=== PATIENT | male | born 1955 | race African-American/Black ===

== ENCOUNTER 2018-10-22 15:09 | Inpatient (IN) | payer OTHER ==
[~2018-10-22] VITALS: Ht 172.7 cm; Wt 76.5 kg
[2018-10-22] MEDS ORDERED: HYDROCODONE/APAP (10/325) TAB PO ONE (18:00)
[2018-10-22] MEDS ORDERED: VANCOMYCIN 1 GM (PMX) 250 ML IVPB STA (19:29)
[2018-10-22] MEDS ORDERED: PIPER-TAZO 3.375 GM IV (PMX) 100 ML IVPB STA (19:29)
--- NOTE | 2018-10-22 19:29 | ERD ---
ER Documentation Chief Complaint Chief Complaint bilat wounds to the feet. sent from a wound clinic HPI 63-year-old male with a history of diabetes and chronic bilateral lower extremity wound sent from his wound clinic for worsening of his wounds. Patient complains of severe 10 out of 10 burning and aching pain in his feet. He is currently homeless and unable to take care of himself. He states that he has medications but he cannot see the names on the medication bottles to take him. He denies any fevers or chills. He is currently living [address] and states that he is very cold all the time. ROS All systems reviewed and are negative except as per history of present illness. Medications Home Meds Reported Medications [Unknown] No Conflict Check 04/28/13 PMhx/Soc History of Surgery: Yes (left hip sx) Anesthesia Reaction: No Hx Neurological Disorder: No Hx Respiratory Disorders: No Hx Cardiac Disorders: No Hx Psychiatric Problems: No Hx Miscellaneous Medical Probl: Yes (dm, BLE ATROPHY) Hx Alcohol Use: Yes (OCCASIONAL) Hx Substance Use: No Hx Tobacco Use: Yes Smoking Status: Current every day smoker FmHx Family History: No diabetes Physical Exam Vitals Vital Signs Date Temp Pulse Resp B/P (MAP) Pulse Ox O2 O2 Flow FiO2 Time Delivery Rate 10/22/18 99.0 110 18 130/90 100 15:14 (103) Physical Exam Const: No acute distress, chronically ill-appearing, nontoxic Head: Atraumatic Eyes: Normal Conjunctiva ENT: Normal External Ears, Nose and Mouth. Neck: Full range of motion. No meningismus. Resp: Clear to auscultation bilaterally Cardio: Regular rate and rhythm, no murmurs Abd: Soft, non tender, non distended. Normal bowel sounds Skin: No petechiae or rashes Back: No midline or flank tenderness Ext: Bilateral feet and ankles with multiple ulcerated lesions with granulation tissue, possibly infected Neur: Awake and alert Psych: Normal Mood and Affect Result Diagram: 10/22/18 1732 10/22/18 173 Results 24 hrs Laboratory Tests Test 10/22/18 17:32 White Blood Count 8.0 10^3/ul Red Blood Count 3.10 10^6/ul Hemoglobin 7.8 g/dl Hematocrit 25.6 % Mean Corpuscular Volume 82.6 fl Mean Corpuscular Hemoglobin 25.2 pg Mean Corpuscular Hemoglobin Concent 30.5 g/dl Red Cell Distribution Width 14.5 % Platelet Count 384 10^3/UL Mean Platelet Volume 9.5 fl Immature Granulocytes % 0.400 % Neutrophils % 75.8 % Lymphocytes % 15.8 % Monocytes % 6.6 % Eosinophils % 0.9 % Basophils % 0.5 % Nucleated Red Blood Cells % 0.0 /100WBC Immature Granulocytes # 0.030 10^3/ul Neutrophils # 6.1 10^3/ul Lymphocytes # 1.3 10^3/ul Monocytes # 0.5 10^3/ul Eosinophils # 0.1 10^3/ul Basophils # 0.0 10^3/ul Nucleated Red Blood Cells # 0.0 10^3/ul Sodium Level 139 mmol/L Potassium Level 4.1 mmol/L Chloride Level 106 mmol/L Carbon Dioxide Level 28 mmol/L Anion Gap 5 Blood Urea Nitrogen 17 mg/dl Creatinine 0.69 mg/dl Est Glomerular Filtrat Rate mL/min > 60 mL/min Glucose Level 246 mg/dl Calcium Level 8.8 mg/dl Total Bilirubin 0.1 mg/dl Direct Bilirubin 0.00 mg/dl Indirect Bilirubin 0.1 mg/dl Aspartate Amino Transf (AST/SGOT) 18 IU/L Alanine Aminotransferase (ALT/SGPT) 9 IU/L Alkaline Phosphatase 109 IU/L Total Protein 6.9 g/dl Albumin 3.1 g/dl Globulin 3.80 g/dl Albumin/Globulin Ratio 0.81 Current Medications Medications Dose Sig/[place] Start Time Status Last (Trade) Ordered Route PRN Stop Time Admin Dose Reason Admin 1 tab ONCE ONCE 10/22/18 DC 10/22/18 Acetaminophen PO 18:00 18:30 / 10/22/18 18:01 Hydrocodone Bitart ([place] ([id number])) Vancomycin 250 ml @ ONCE STAT 10/22/18 HCl 125 mls/hr IVPB 19:29 10/22/18 21:28 Piperacillin 100 ml @ ONCE STAT 10/22/18 DC 10/22/18 Sod/ 200 mls/hr IVPB 19:29 19:45 Tazobactam 10/22/18 19:58 Sod Ondansetron 4 mg BRIDGE ORDER 10/22/18 HCl (Zofran PRN IV 20:00 Inj) NAUSEA/VOMITI 2/20/19 19:59 NG 650 mg ER BRIDGE 10/22/18 Acetaminophen PRN PO 20:00 (Tylenol .MILD PAIN 10/23/18 19:59 Tab) 1-3 OR TEMP Procedures/MDM This is a homeless male presenting with bilateral lower extremity wounds with possible infection. Labs are notable for anemia and hyperglycemia. He is clearly unable to take care of himself. Antibiotics were started in the ER and the patient will require admission for further workup, management of his wounds, and he will need admission to a [facility] facility for wound care. Patient will be admitted to Dr. Mayorga Departure Diagnosis: Primary Impression: Open wound of both lower extremities with complication Encounter type: initial encounter Qualified Codes: S81.801A - Unspecified open wound, right lower leg, initial encounter; S81.802A - Unspecified open wound, left lower leg, initial encounter Condition: CHUYITA Fenton MD Oct 22, 2018 19:28
[2018-10-22] MEDS ORDERED: ONDANSETRON 4 MG INJ IV PRN (20:00)
[2018-10-22] MEDS ORDERED: ACETAMINOPHEN 325 MG TAB PO PRN ×2 (20:00→22:00)
[2018-10-22 22:00] VITALS: BP 138/65; PULSE 104; RESP 18
[2018-10-22] MEDS ORDERED: DOCUSATE SODIUM 100 MG CAP PO PRN (22:00)
[2018-10-22] MEDS ORDERED: NACL 0.9% 3 ML SYG IV SCH (22:00)
[2018-10-22] MEDS ORDERED: VANCOMYCIN IV PER PHARMACY XX SCH (22:00)
[2018-10-22] MEDS ORDERED: ONDANSETRON 4 MG TAB PO PRN (22:00)
[2018-10-22] MEDS ORDERED: METO-429 PO (22:03)
[2018-10-22] MEDS ORDERED: HYDR-3980 PO (22:03)
[2018-10-22] MEDS ORDERED: MTF1000T PO (22:03)
[2018-10-22 22:10] VITALS: Ht 172.7 cm; Wt 76.5 kg
[2018-10-22] MEDS ORDERED: DEXTROSE 50% 50 ML SYRINGE IV PRN ×2 (22:30)
[2018-10-22] MEDS ORDERED: GLUCAGON 1 MG INJ IM PRN (22:30)
[2018-10-22] MEDS ORDERED: GLUCOSE GEL 15 GRAM TUBE BUCCAL PRN (22:30)
[2018-10-22] MEDS ORDERED: GLUCOSE GEL 15 GRAM TUBE PO PRN ×2 (22:30)
[2018-10-22] MEDS: FAMOTIDINE 20 MG TAB PO SCH (22:59)
[2018-10-22] MEDS: SOD CHLORIDE 0.9% 1,000 ML IV SCH (22:59)
[2018-10-22] MEDS ORDERED: VANCOMYCIN 500 MG (PMX) 100 ML IVPB SCH (23:30)
[2018-10-23] MEDS ORDERED: PIPER-TAZO 3.375 GM IV (PMX) 100 ML IVPB ONE (02:00)
[2018-10-23 02:04] VITALS: BP 138/65; PULSE 104; RESP 18
[2018-10-23 05:51] VITALS: BP 140/65; PULSE 94; RESP 20
[2018-10-23] MEDS ORDERED: VANCOMYCIN 1 GM 250 ML IVPB SCH (08:00)
[2018-10-23] MEDS ORDERED: SOD CHLORIDE 0.9% 250 ML IV* ONE (08:34)
[2018-10-23 08:51] VITALS: BP 156/74; PULSE 90; RESP 19
[2018-10-23] MEDS ORDERED: LIDOCAINE 1% (MPF) 5 ML VIAL SC ONE (09:00)
[2018-10-23] MEDS ORDERED: ACET325T33 PO (09:04)
[2018-10-23] MEDS ORDERED: PIPE3.374 IVPB (09:04)
[2018-10-23] MEDS ORDERED: Vancomycin Iv Per Pharmacy XX (09:04)
[2018-10-23] MEDS ORDERED: FAMO20TA18 PO (09:04)
[2018-10-23] MEDS ORDERED: ENOX40DI12 SC (09:04)
[2018-10-23] MEDS ORDERED: VANC1PLA9 IV (09:04)
[2018-10-23] MEDS ORDERED: SITA50TA2 PO (09:04)
--- NOTE | 2018-10-23 09:05 | PDOCDIS ---
Discharge Instructions CONDITION [id number] Patient Condition: [id number] Good HOME CARE INSTRUCTIONS: [id number] Diet Instructions: [id number] Activity Restrictions: [id number] Slowly Increase Activity FOLLOW UP/APPOINTMENTS Follow-up Plan pcp 2 weeks podiatry 2 weeks CARO CORONEL MD Oct 23, 2018 09:05
--- NOTE | 2018-10-23 09:21 | PDOCDIS ---
Discharge Instructions DIAGNOSIS Discharge Diagnosis Bilateral diabetic foot cellulitis Poorly controlled type 2 diabetes mellitus Hypertension Anemia Noncompliance Homeless 63-year-old male with poorly controlled type 2 diabetes mellitus, was referred to emergency room from clinic with worsening bilateral lower extremity diabetic foot cellulitis. Patient reported that he is homeless and did not carry any medications with him. He refused insulin therapy. Initial evaluation revealed bilateral foot cellulitis involving the ankle area and the heel. Patient was a started on IV vancomycin and Zosyn. He was also noted to have a hemoglobin of 6.6. I ordered 2 units of packed RBC as well as stool occult blood. I added Januvia to his previously prescribed metformin. Hemoglobin A1c was 7.8. Patient is in a stable condition for transition to longterm facility for 10 days of IV antibiotics and local wound care. PICC line was ordered. CONDITION [id number] Patient Condition: Mnexp5c Good HOME CARE INSTRUCTIONS: [id number] Diet Instructions: [id number] Activity Restrictions: [id number] Slowly Increase Activity FOLLOW UP/APPOINTMENTS Follow-up Plan pcp 2 weeks podiatry 2 weeks CARO CORONEL MD Oct 23, 2018 09:21
[2018-10-23] MEDS: FAMOTIDINE 20 MG TAB PO SCH ×2 (09:29→20:29)
[2018-10-23] MEDS: traMADol 50 MG TAB GTB PRN ×2 (09:29→17:07)
[2018-10-23] MEDS: ENOXAPARIN 40 MG/0.4 ML SYG SC SCH (09:31)
[2018-10-23] MEDS: SOD CHLORIDE 0.9% 1,000 ML IV SCH ×2 (11:00→22:40)
--- NOTE | 2018-10-23 12:13 | HP ---
DATE OF ADMISSION: 10/22/2018 REASON FOR VISIT: Diabetic foot cellulitis. HISTORY OF PRESENT ILLNESS: A 63-year-old gentleman with history of poorly controll ed diabetes and chronic bilateral lower extremity wounds, was sent from clinic for cellulitis. The p atfreddie is homeless. He complains of severe burning pain in his feet. He denies any fevers or chills . The patient claims he is on metformin and other types of medications, but he does not recall the n gee of the rest of his medications and didn't carry any bottles with him at the time of presentation . The patient also reports a wound on his buttock area. Initial evaluation revealed evidence of bila teral lower extremity cellulitis with open wounds. PAST MEDICAL HISTORY: 1. Hypertension. 2. Type 2 diabetes mellitus. SOCIAL HISTORY: The patient is homeless. He admits to smoking cigarettes and drinks alcohol on occa sional basis. PHYSICAL EXAMINATION: GENERAL: Well-developed, well-nourished male who is in no apparent distress. VITAL SIGNS: Stable. He is afebrile. HEENT: Extraocular muscles intact. Pupils equal and reactive to light bilaterally. Sclerae are ani cteric. Oropharynx is clear and moist. NECK: Supple, no JVD, no carotid bruits. LUNGS: Clear to auscultation bilaterally. CARDIAC: Regular rate and rhythm. No murmurs, rubs or gallops. ABDOMEN: Soft, nontender, nondistended, normoactive bowel sounds. EXTREMITIES: Bilateral distal lower extremities with clean dressing. The wounds noted on the bilate ral will feet around the ankles as well as the heel. No pus was noted. NEUROLOGICAL: Grossly normal. LABORATORY DATA: White blood cell count was 7.8, hemoglobin was down to 6.6, platelet count 384,000. Sodium 139, potassium 4.1, chloride 106, bicarbonate 28, BUN 17, creatinine 0.69, glucose 246. The hemoglobin A1c was 7.8. ASSESSMENT: 1. A 63-year-old male with bilateral lower extremity diabetic foot cellulitis. 2. Poorly controlled type 2 diabetes mellitus. 3. Anemia, rule out gastrointestinal bleed. 4. Hypertension. 5. Homeless. PLAN: 1. Place in Med/Surg observation, continue IV vancomycin and Zosyn. 2. Local wound care. 3. Continue metformin and start Januvia 50 mg daily. 4. Transfuse 2 units of packed RBC. 5. Discharge planning to [facility] facility for wound care and IV antibiotics. 6. PICC line placement was ordered. Dictated By: CARO GARCIA/SAVANNAH Conf#: [id number] DID#: [id number]
[2018-10-23 13:50] VITALS: BP 160/75; PULSE 99; RESP 18
--- NOTE | 2018-10-23 14:09 | CONS ---
Assessment/Plan Assessment/Plan Problems: (1) Deformity of lower extremity (2) PVD (peripheral vascular disease) (3) Decubitus ulcer, heel, left, unstageable (4) Open wound of both lower extremities with complication Status: Acute Qualifiers: Qualified Codes: S81.801A - Unspecified open wound, right lower leg, initial encounter; S81.802A - Unspecified open wound, left lower leg, initial encounter Assessment/Plan (Daily) Patient will require meticulous wound care daily basis. Soak feet in quarter strength Dakin solution every 3 days with the dressing changes Apply Acticoat to all open areas and change every 3 days Offload heels off of the bed Patient to follow-up in the amputation prevention [facility] in 1 week May discharge as per foot and ankle surgery Consultation Date/Type/Reason Admit Date/Time Oct 22, 2018 at 19:43 Date of Consultation: Oct 23, 2018 Type of Consult Infection in both feet Date/Time of Note DATE: 10/23/18 TIME: 14:08 Past Medical History Home Meds Reported Medications Hydrocodone/Acetaminophen ([place] 10-325 Tablet) 1 Each Tablet, 1 EACH PO, TAB 10/22/18 Metoprolol Tartrate* (Lopressor*) 50 Mg Tab, 50 MG PO BID, #60 TAB 10/22/18 Metformin* (Glucophage*) 1,000 Mg Tablet, 1000 MG PO WITH BREAKFAST DINNE, #30 TAB 10/22/18 Discontinued Reported Medications [Unknown] No Conflict Check 04/28/13 Medications Current Medications Sodium Chloride 1,000 ml @ 80 mls/hr [id number] IV Last administered on 10/22/18at 22:59; Admin Dose 80 MLS/HR; Start 10/22/18 at 22:30 IV Flush (NS 3 ml) 3 ml PER PROTOCOL IV ; Start 10/22/18 at 22:00 Ondansetron HCl (Zofran Tab) 4 mg Q6H PRN PO NAUSEA/VOMITING; Start 10/22/18 at 22:00 Acetaminophen (Tylenol Tab) 650 mg Q6H PRN PO .PAIN 1-3 OR TEMP; Start 10/22/18 at 22:00 Docusate Sodium (Colace) 100 mg Q12H PRN PO .CONSTIPATION; Start 10/22/18 at 22:00 Famotidine (Pepcid) 20 mg Q12 PO Last administered on 10/23/18at 09:29; Admin Dose 20 MG; Start 10/22/18 at 22:30 Enoxaparin Sodium (Lovenox) 40 mg DAILY SC Last administered on 10/23/18at 09:31; Admin Dose 40 MG; Start 10/23/18 at 09:00 Insulin Glargine (Lantus) 12 units DAILY@2000 SC ; Start 10/23/18 at 20:00 Vancomycin HCl (Vanco Iv Per Pharmacy) VANCOMYCIN PER PHARMACY PER PROTOCOL XX ; Start 10/22/18 at 22:00 Miscellaneous Information 1 ea NOTE XX ; Start 10/22/18 at 22:30 Glucose (Glutose) 15 gm Q15M PRN PO DECREASED GLUCOSE; Start 10/22/18 at 22:30 Glucose (Glutose) 22.5 gm Q15M PRN PO DECREASED GLUCOSE; Start 10/22/18 at 22:30 Dextrose (D50w Syringe) 25 ml Q15M PRN IV DECREASED GLUCOSE; Start 10/22/18 at 22:30 Dextrose (D50w Syringe) 50 ml Q15M PRN IV DECREASED GLUCOSE; Start 10/22/18 at 22:30 Glucagon (Glucagen) 1 mg Q15M PRN IM DECREASED GLUCOSE; Start 10/22/18 at 22:30 Glucose (Glutose) 15 gm Q15M PRN BUCCAL DECREASED GLUCOSE; Start 10/22/18 at 22:30 Vancomycin HCl 250 ml @ 125 mls/hr Q12H IVPB ; Start 10/23/18 at 08:00 Tramadol HCl (Ultram) 50 mg Q6H PRN GTB MODERATE PAIN LEVEL 4-6 Last administered on 10/23/18at 09:29; Admin Dose 50 MG; Start 10/23/18 at 08:00 IV Flush (NS 10 ml) 10 ml PRN PRN IV IV PROTOCOL; Start 10/23/18 at 13:00 Allergies: Coded Allergies: No Known Allergy (Unverified , 10/22/18) Social History Smoking Status: Current every day smoker Exam/Review of Systems Exam Vitals Vital Signs Date Temp Pulse Resp B/P (MAP) Pulse Ox O2 O2 Flow FiO2 Time Delivery Rate 10/23/18 98.9 99 18 160/75 99 13:50 (103) 10/22/18 Room Air 21:29 Intake and Output 10/22/18 10/22/18 10/23/18 1515:00 23:00 07:00 IntakeIntake Total 610 ml OutputOutput Total 100 ml 200 ml BalanceBalance -100 ml 410 ml Results Result Diagram: 10/23/1851810/23/18518 Results 24hrs Laboratory Tests Test 10/22/18 17:32 10/22/18 22:46 10/23/18 05:19 10/23/18 10:35 White Blood Count 8.0 5.9 # Red Blood Count 3.10 L 2.69 L Hemoglobin 7.8 L 6.6 *L Hematocrit 25.6 L 22.6 L Mean Corpuscular 82.6 84.0 Volume Mean Corpuscular 25.2 L 24.5 L Hemoglobin Mean Corpuscular 30.5 L 29.2 L Hemoglobin Concent Red Cell 14.5 14.5 Distribution Width Platelet Count 384 328 Mean Platelet Volume 9.5 10.0 Immature 0.400 0.300 Granulocytes % Neutrophils % 75.8 66.0 Lymphocytes % 15.8 22.6 Monocytes % 6.6 9.3 Eosinophils % 0.9 1.5 Basophils % 0.5 0.3 Nucleated Red Blood 0.0 0.0 Cells % Immature 0.030 0.020 Granulocytes # Neutrophils # 6.1 3.9 Lymphocytes # 1.3 1.3 Monocytes # 0.5 0.6 Eosinophils # 0.1 0.1 Basophils # 0.0 0.0 Nucleated Red Blood 0.0 0.0 Cells # Sodium Level 139 140 Potassium Level 4.1 3.8 Chloride Level 106 108 Carbon Dioxide Level 28 27 Anion Gap 5 5 Blood Urea Nitrogen 17 16 Creatinine 0.69 0.90 Est Glomerular > 60 > 60 Filtrat Rate mL/min Glucose Level 246 H 255 H Calcium Level 8.8 8.4 Total Bilirubin 0.1 L 0.1 L Direct Bilirubin 0.00 0.00 Indirect Bilirubin 0.1 0.1 Aspartate Amino 18 11 L Transf (AST/SGOT) Alanine 9 L 12 L Aminotransferase (AL T/SGPT) Alkaline Phosphatase 109 81 Total Protein 6.9 5.7 #L Albumin 3.1 L 2.5 L Globulin 3.80 H 3.20 Albumin/Globulin 0.81 0.78 Ratio Creatine Kinase 102 70 Creatine Kinase 1.5 1.9 Index Creatinine Kinase MB 1.50 1.34 (Mass) Troponin I 0.016 0.020 Hemoglobin A1c 7.8 H Free Thyroxine Index 2.57 Thyroxine (T4) 5.2 L Triiodothyronine 49.5 H (T3) Uptake Lab Scanned Report LAB Medications Medication Current Medications Sodium Chloride 1,000 ml @ 80 mls/hr [id number] IV Last administered on 10/22/18at 22:59; Admin Dose 80 MLS/HR; Start 10/22/18 at 22:30 IV Flush (NS 3 ml) 3 ml PER PROTOCOL IV ; Start 10/22/18 at 22:00 Ondansetron HCl (Zofran Tab) 4 mg Q6H PRN PO NAUSEA/VOMITING; Start 10/22/18 at 22:00 Acetaminophen (Tylenol Tab) 650 mg Q6H PRN PO .PAIN 1-3 OR TEMP; Start 10/22/18 at 22:00 Docusate Sodium (Colace) 100 mg Q12H PRN PO .CONSTIPATION; Start 10/22/18 at 22:00 Famotidine (Pepcid) 20 mg Q12 PO Last administered on 10/23/18at 09:29; Admin Dose 20 MG; Start 10/22/18 at 22:30 Enoxaparin Sodium (Lovenox) 40 mg DAILY SC Last administered on 10/23/18at 09:31; Admin Dose 40 MG; Start 10/23/18 at 09:00 Insulin Glargine (Lantus) 12 units DAILY@2000 SC ; Start 10/23/18 at 20:00 Vancomycin HCl (Vanco Iv Per Pharmacy) VANCOMYCIN PER PHARMACY PER PROTOCOL XX ; Start 10/22/18 at 22:00 Miscellaneous Information 1 ea NOTE XX ; Start 10/22/18 at 22:30 Glucose (Glutose) 15 gm Q15M PRN PO DECREASED GLUCOSE; Start 10/22/18 at 22:30 Glucose (Glutose) 22.5 gm Q15M PRN PO DECREASED GLUCOSE; Start 10/22/18 at 22:30 Dextrose (D50w Syringe) 25 ml Q15M PRN IV DECREASED GLUCOSE; Start 10/22/18 at 22:30 Dextrose (D50w Syringe) 50 ml Q15M PRN IV DECREASED GLUCOSE; Start 10/22/18 at 22:30 Glucagon (Glucagen) 1 mg Q15M PRN IM DECREASED GLUCOSE; Start 10/22/18 at 22:30 Glucose (Glutose) 15 gm Q15M PRN BUCCAL DECREASED GLUCOSE; Start 10/22/18 at 22:30 Vancomycin HCl 250 ml @ 125 mls/hr Q12H IVPB ; Start 10/23/18 at 08:00 Tramadol HCl (Ultram) 50 mg Q6H PRN GTB MODERATE PAIN LEVEL 4-6 Last administered on 10/23/18at 09:29; Admin Dose 50 MG; Start 10/23/18 at 08:00 IV Flush (NS 10 ml) 10 ml PRN PRN IV IV PROTOCOL; Start 10/23/18 at 13:00 JOSEF FOX DPM Oct 23, 2018 14:09
[2018-10-23] MEDS ORDERED: CEFT1PIG2 IVPB (14:54)
[2018-10-23] MEDS: hydrALAzine 20 MG INJ IV PRN (16:40)
[2018-10-23] MEDS: METOPROLOL 50 MG TAB PO SCH ×2 (16:40→22:39)
[2018-10-23] MEDS ORDERED: FUROSEMIDE 20 MG INJ IV STA (17:47)
[2018-10-23] MEDS ORDERED: HYDROCODONE/APAP (5/325) TAB PO PRN (18:00)
[2018-10-23] MEDS ORDERED: DIPHENHYDRAMINE 50 MG INJ IV ONE (18:00)
[2018-10-23] MEDS ORDERED: ACETAMINOPHEN 500 MG TAB PO ONE (18:00)
[2018-10-23 20:00] VITALS: BP 146/75; PULSE 89; RESP 18
[2018-10-23] MEDS ORDERED: INSULIN GLARGINE [LANTus] (100 UNITS/ML) SYG SC SCH (20:00)
[2018-10-24] VITALS (7 sets, daily range): BP systolic 157–184; BP diastolic 72–87; PULSE 80–93; RESP 18
[2018-10-24] MEDS ORDERED: ACCU-CHEK XX SCH (02:00)
[2018-10-24] MEDS: VANCOMYCIN 1 GM 250 ML IVPB SCH ×2 (02:05→14:20)
[2018-10-24] MEDS: hydrALAzine 20 MG INJ IV PRN ×2 (02:05→16:08)
[2018-10-24] MEDS: INSULIN ASPART [NOVOLOG] 3 ML PEN SC SCH ×3 (07:57→17:43)
[2018-10-24] MEDS ORDERED: METO-429 PO (08:23)
[2018-10-24] MEDS ORDERED: LISI-471 PO (08:23)
--- NOTE | 2018-10-24 08:27 | PDOCDIS ---
Discharge Instructions DIAGNOSIS Discharge Diagnosis Bilateral diabetic foot cellulitis Poorly controlled type 2 diabetes mellitus Hypertension Anemia Noncompliance Homeless 63-year-old male with poorly controlled type 2 diabetes mellitus, was referred to emergency room from clinic with worsening bilateral lower extremity diabetic foot cellulitis. Patient reported that he is homeless and did not carry any medications with him. He refused insulin therapy. Initial evaluation revealed bilateral foot cellulitis involving the ankle area and the heel. Patient was a started on IV vancomycin and Zosyn. He was also noted to have a hemoglobin of 6.6. I ordered 2 units of packed RBC as well as stool occult blood. I added Januvia to his previously prescribed metformin. Hemoglobin A1c was 7.8. He was seen in consultation by Dr Ralph. Patient is in a stable condition for transition to alf facility for 10 days of IV antibiotics and local wound care. PICC line was ordered. CONDITION [id number] Patient Condition: [id number] Fair HOME CARE INSTRUCTIONS: [id number] Diet Instructions: [id number] Activity Restrictions: [id number] Slowly Increase Activity FOLLOW UP/APPOINTMENTS Follow-up Plan pcp [address] Ralph in 1 week CARO CORONEL MD Oct 24, 2018 08:27
[2018-10-24] MEDS: FAMOTIDINE 20 MG TAB PO SCH (08:47)
[2018-10-24] MEDS: METOPROLOL 50 MG TAB PO SCH (08:47)
[2018-10-24] MEDS: ENOXAPARIN 40 MG/0.4 ML SYG SC SCH (08:50)
[2018-10-24] MEDS ORDERED: LISINOPRIL 20 MG TAB PO SCH (09:00)
[2018-10-24] MEDS: SOD CHLORIDE 0.9% 1,000 ML IV SCH (11:59)
[2018-10-24] MEDS ORDERED: FUROSEMIDE 20 MG INJ IV ONE (17:00)
[2018-10-26 20:00] VITALS: BP 117/56; PULSE 74; RESP 20
== END 2018-10-24 19:16 | DRG 637 ==
LOC: E/R 15:09 → 2NE 19:43 → PP2 10-23 05:00
PROVIDERS: ADMIT Internal Medicine; ATTEND Internal Medicine
PROC: 02HV33Z Insertion of Infusion Device into Superior Vena Cava, Percutaneous Approach (ICD-10-PCS; principal; 2018-10-23)
PROC: B548ZZA Ultrasonography of Superior Vena Cava, Guidance (ICD-10-PCS; 2018-10-23)
PROC: 30233N1 Transfusion of Nonautologous Red Blood Cells into Peripheral Vein, Percutaneous Approach (ICD-10-PCS; 2018-10-23)
DX: E11.621 Type 2 diabetes mellitus with foot ulcer (principal); L89.313 Pressure ulcer of right buttock, stage 3; L03.116 Cellulitis of left lower limb; L03.115 Cellulitis of right lower limb; E11.51 Type 2 diabetes mellitus with diabetic peripheral angiopathy without gangrene; E11.65 Type 2 diabetes mellitus with hyperglycemia; L89.610 Pressure ulcer of right heel, unstageable; L89.620 Pressure ulcer of left heel, unstageable; I10 Essential (primary) hypertension; D64.9 Anemia, unspecified; I73.9 Peripheral vascular disease, unspecified; L97.529 Non-pressure chronic ulcer of other part of left foot with unspecified severity; L97.519 Non-pressure chronic ulcer of other part of right foot with unspecified severity; F17.210 Nicotine dependence, cigarettes, uncomplicated; Z79.4 Long term (current) use of insulin; Z59.0 Homelessness; Z91.14 Patient's other noncompliance with medication regimen
CPT/HCPCS: 36415; 36430; 36569; 71045; 76937; 80053; 81001; 82550; 82553; 82962; 83036; 84436; 84479; 84484; 85025; 86850; 86900; 86901; 86920; 87040; J0360; J1200; J1650; J1815; J1940; J2543; J3370; J7030; J7040; P9016

== ENCOUNTER 2019-01-17 19:03 | Inpatient (IN) | payer OTHER ==
[~2019-01-17] VITALS: Ht 172.7 cm; Wt 68.3 kg
[~2019-01-17 19:03] MED LIST: ACET325T33 PO; CEFT1PIG2 IVPB; ENOX40DI12 SC; FAMO20TA18 PO; HYDR-3980 PO; LISI-471 PO; METO-429 PO; MTF1000T PO; SITA50TA2 PO; VANC1PLA9 IV; Vancomycin Iv Per Pharmacy XX
[2019-01-17] MEDS ORDERED: VANCOMYCIN 1 GM (PMX) 250 ML IVPB STA (19:56)
[2019-01-17] MEDS ORDERED: PIPER-TAZO 3.375 GM IV (PMX) 100 ML IVPB STA (19:56)
[2019-01-17] MEDS ORDERED: SODIUM CHLORIDE 0.9% 1L BAG IV* STA (19:56)
[2019-01-17] MEDS ORDERED: HYDROCODONE/APAP (10/325) TAB PO ONE (21:00)
--- NOTE | 2019-01-17 22:52 | ERD ---
ER Documentation Chief Complaint Chief Complaint worsening bilateral feet ulcers x3 weeks HPI 63-year-old male with a history of diabetes, chronic bilateral lower extremity wounds, sacral wounds, presenting with complaints of pain in bilateral lower extremities that is chronic and worsening. He was admitted here in October. He states that he was supposed to follow-up in wound clinic but never received information for this. He was supposed to have a nurse come out to the transitional home where he is living, however nurse never came. No one has been taking care of his wounds. He denies any fevers or chills. He complains of severe pain in bilateral lower extremities, 8 out of 10, burning, no alleviating or exacerbating factors, constant. ROS All systems reviewed and are negative except as per history of present illness. Medications Home Meds Active Scripts Metoprolol Tartrate* (Lopressor*) 50 Mg Tab, 50 MG PO BID for 30 Days, TAB Prov:CARO CORONEL MD 10/24/18 Lisinopril* (Lisinopril*) 20 Mg Tablet, 20 MG PO DAILY for 30 Days, TAB Prov:CARO CORONEL MD 10/24/18 Ceftriaxone Sod* (Rocephin* 1GM/50ML (PMX)) 1 Gm/50 Ml Iv.soln., 1 GM IVPB Q24H for 10 Days, EA Prov:CARO CORONEL MD 10/23/18 Sitagliptin* (Januvia*) 50 Mg Tablet, 50 MG PO DAILY, #30 TAB Prov:CARO CORONEL MD 10/23/18 Famotidine* (Famotidine*) 20 Mg Tablet, 20 MG PO Q12 for 10 Days, TAB Prov:CARO CORONEL MD 10/23/18 Acetaminophen* (Tylenol*) 325 Mg Tablet, 650 MG PO Q6H PRN for .PAIN 1-3 OR TEMP for 10 Days, TAB Prov:CARO CORONEL MD 10/23/18 Enoxaparin Sodium (Enoxaparin Sodium) 40 Mg/0.4 Ml Syringe, 40 MG SC DAILY for 10 Days Prov:CARO CORONEL MD 10/23/18 Vancomycin/0.9 % Sod Chloride (Vanco 1 Gram/250 ml-0.9% NaCl) 1 Gm/250 Ml Plast..bag, 1 GM IV DAILY for 10 Days Prov:CARO CORONEL MD 10/23/18 [Vancomycin Iv Per Pharmacy] 1 EA EACH No Conflict Check, 0 EA XX .PER PROTOCOL for 10 Days Prov:CARO CORONEL MD 10/23/18 Reported Medications Hydrocodone/Acetaminophen ([place] 10-325 Tablet) 1 Each Tablet, 1 EACH PO, TAB 10/22/18 Metoprolol Tartrate* (Lopressor*) 50 Mg Tab, 50 MG PO BID, #60 TAB 10/22/18 Metformin* (Glucophage*) 1,000 Mg Tablet, 1000 MG PO WITH BREAKFAST DINNE, #30 TAB 10/22/18 Allergies Allergies: Coded Allergies: No Known Allergy (Unverified , 10/22/18) PMhx/Soc History of Surgery: Yes (LEFT HIP SX WITH PINS) Anesthesia Reaction: No Hx Neurological Disorder: No Hx Respiratory Disorders: No Hx Cardiac Disorders: Yes (HTN) Hx Psychiatric Problems: No Hx Miscellaneous Medical Probl: No Hx Alcohol Use: Yes Hx Substance Use: No Hx Tobacco Use: Yes (1-2 STICKS PER DAY) Smoking Status: Current every day smoker FmHx Family History: No coronary disease Physical Exam Vitals Vital Signs Date Temp Pulse Resp B/P (MAP) Pulse Ox O2 O2 Flow FiO2 Time Delivery Rate 01/17/19 83 20 151/105 99 Room Air 22:34 (120) 01/17/19 98.2 89 18 174/79 100 Room Air 20:40 (110) 01/17/19 98.2 111 18 195/80 100 19:31 (118) Physical Exam Const: No acute distress, nontoxic Head: Atraumatic Eyes: Normal Conjunctiva ENT: Normal External Ears, Nose and Mouth. Neck: Full range of motion. No meningismus. Resp: Clear to auscultation bilaterally Cardio: Regular rate and rhythm, no murmurs Abd: Soft, non tender, non distended. Normal bowel sounds Skin: No petechiae or rashes Back: No midline or flank tenderness. Buttocks with bilateral stage 2 ulcers Ext: No cyanosis, or edema bilateral lower extremity pedal edema with multiple wounds, appear infected on the left side. Unable to palpate DP and PT pulses bilaterally. Compartments soft. No calf tenderness. Limited range of motion of bilateral legs which is chronic. Neur: Awake and alert Psych: Normal Mood and Affect Result Diagram: 01/17/19210801/17/192108 Results 24 hrs Laboratory Tests Test 01/17/19 21:09 01/17/19 21:17 White Blood Count 7.1 10^3/ul Red Blood Count 3.19 10^6/ul Hemoglobin 8.4 g/dl Hematocrit 27.5 % Mean Corpuscular Volume 86.2 fl Mean Corpuscular Hemoglobin 26.3 pg Mean Corpuscular Hemoglobin Concent 30.5 g/dl Red Cell Distribution Width 14.8 % Platelet Count 419 10^3/UL Mean Platelet Volume 9.8 fl Immature Granulocytes % 0.300 % Neutrophils % 69.8 % Lymphocytes % 21.7 % Monocytes % 5.8 % Eosinophils % 1.4 % Basophils % 1.0 % Nucleated Red Blood Cells % 0.0 /100WBC Immature Granulocytes # 0.020 10^3/ul Neutrophils # 5.0 10^3/ul Lymphocytes # 1.5 10^3/ul Monocytes # 0.4 10^3/ul Eosinophils # 0.1 10^3/ul Basophils # 0.1 10^3/ul Nucleated Red Blood Cells # 0.0 10^3/ul Prothrombin Time 16.3 Sec Prothrombin Time Ratio 1.3 INR International Normalized Ratio 1.30 Activated Partial Thromboplast Time 31.7 Sec Sodium Level 139 mmol/L Potassium Level 4.3 mmol/L Chloride Level 105 mmol/L Carbon Dioxide Level 28 mmol/L Anion Gap 6 Blood Urea Nitrogen 23 mg/dl Creatinine 1.09 mg/dl Est Glomerular Filtrat Rate mL/min > 60 mL/min Glucose Level 241 mg/dl Calcium Level 8.9 mg/dl Total Bilirubin 0.4 mg/dl Direct Bilirubin 0.00 mg/dl Indirect Bilirubin 0.4 mg/dl Aspartate Amino Transf (AST/SGOT) 15 IU/L Alanine Aminotransferase (ALT/SGPT) 14 IU/L Alkaline Phosphatase 112 IU/L Total Protein 6.8 g/dl Albumin 3.4 g/dl Globulin 3.40 g/dl Albumin/Globulin Ratio 1.00 POC Venous Lactate 1.4 mmol/L Current Medications Medications Dose Sig/[place] Start Time Status Last (Trade) Ordered Route PRN Stop Time Admin Dose Reason Admin Sodium 1,640 ml BOLUS OVER 2 01/17/19 DC 01/17/19 Chloride HOURS STAT 19:56 20:58 (NS) IV* 01/17/19 19:58 Vancomycin 250 ml @ ONCE STAT 01/17/19 DC 01/17/19 HCl 125 mls/hr IVPB 19:56 22:24 01/17/19 21:55 Piperacillin 100 ml @ ONCE STAT 01/17/19 DC 01/17/19 Sod/ 200 mls/hr IVPB 19:56 21:23 Tazobactam 01/17/19 20:25 Sod 1 tab ONCE ONCE 01/17/19 DC 01/17/19 Acetaminophen PO 21:00 21:00 / 01/17/19 21:01 Hydrocodone Bitart ([place] (10/325)) Ondansetron 4 mg BRIDGE ORDER 01/17/19 HCl (Zofran PRN IV 23:00 Inj) NAUSEA/VOMITI 01/18/19 22:59 NG 650 mg ER BRIDGE 01/17/19 Acetaminophen PRN PO 23:00 (Tylenol .MILD PAIN 01/18/19 22:59 Tab) 1-3 OR TEMP Procedures/MDM EMERGENT LABS AND DIAGNOSTIC STUDIES: Lab Results above were reviewed and interpreted by me. CBC: Anemia. thrombocytosis, likely secondary to infection. CMP: Elevated BUN, likely secondary to mild dehydration. Hyperglycemic without evidence of acidosis. No evidence of clinically significant electrolyte abnormality, renal failure, hypoglycemia, liver disease, or biliary obstruction Lactate within normal limits without evidence of sepsis or tissue hypoperfusion Radiology Results as interpreted by Radiology below were reviewed by Manoj Lozano MD: CXR: no acute abnormalities Initial Nursing notes reviewed. Previous Medical Records requested via the Electronic Health Record. EMERGENCY DEPARTMENT COURSE / MEDICAL DECISION MAKING: Patient is presenting with bilateral lower extremity chronic wounds that appear infected. He was tachypneic and tachycardic upon arrival, but afebrile. I do not suspect necrotizing soft tissue infection. I am concerned about wound infection. No evidence of severe sepsis or septic shock on work-up. Labs were generally unremarkable other than thrombocytosis, likely due to infection, and chronic anemia. He was treated with IV antibiotics. Pain medications were given. Patient will be admitted for IV antibiotics and wound care. Accepting Care Team: Current data and ongoing care discussed. Time: Time of admission Primary Provider: Dr. Yair Melgoza Diagnosis: Primary Impression: Open wound of both lower extremities with complication Encounter type: initial encounter Qualified Codes: S81.801A - Unspecified open wound, right lower leg, initial encounter; S81.802A - Unspecified open wound, left lower leg, initial encounter Additional Impression: Wound infection Condition: CHUYITA Fenton MD January 17, 2019 22:52
[2019-01-17] MEDS ORDERED: ONDANSETRON 4 MG INJ IV PRN (23:00)
[2019-01-17] MEDS ORDERED: ACETAMINOPHEN 325 MG TAB PO PRN (23:00)
[2019-01-18] VITALS: Ht 172.7 cm; Wt 68.3 kg
[2019-01-18 00:15] VITALS: BP 164/79; PULSE 83; RESP 20
--- NOTE | 2019-01-18 00:28 | HP ---
Date/Time of Note Date/Time of Note DATE: 01/18/19 TIME: 00:27 Assessment/Plan VTE Prophylaxis Pharmacological prophylaxis: heparin Lines/Catheters IV [facility]from [facility] Saline Lock Assessment/Plan Hospital Course This is a 63-year-old male being admitted to the [facility] floor for: #1 bilateral foot wound: Bilateral was unable to examine the patient's feet as he did not allow me to remove his wrapping, the ED physician did report that patient had infected wound. At the current time we will put the patient on vancomycin and Zosyn. Will obtain bilateral x-rays of the feet. Will consult podiatry . We will also check bilateral venous Dopplers and arterial Dopplers to assess vessel flow and patency. #2 sacral wound: Wound care consult #3 hypertension: Resume patient's home blood pressure meds #4 diabetes mellitus: We will check a hemoglobin A1c, insulin sliding scale #5 tobacco use: Nicotine patch encourage cessation #6 chronic debility: Patient is wheelchair-bound #7 placement: Social work consult # DVT GI prophylaxis: Heparin, no GI prophylaxis indicated Further treatment strategy will be implemented as per the clinical course. Result Diagram: 01/17/19210801/17/192108 Results 24hrs Laboratory Tests Test 01/17/19 21:09 01/17/19 21:17 White Blood Count 7.1 Red Blood Count 3.19 L Hemoglobin 8.4 L Hematocrit 27.5 L Mean Corpuscular Volume 86.2 Mean Corpuscular Hemoglobin 26.3 L Mean Corpuscular Hemoglobin Concent 30.5 L Red Cell Distribution Width 14.8 H Platelet Count 419 #H Mean Platelet Volume 9.8 Immature Granulocytes % 0.300 Neutrophils % 69.8 Lymphocytes % 21.7 Monocytes % 5.8 Eosinophils % 1.4 Basophils % 1.0 Nucleated Red Blood Cells % 0.0 Immature Granulocytes # 0.020 Neutrophils # 5.0 Lymphocytes # 1.5 Monocytes # 0.4 Eosinophils # 0.1 Basophils # 0.1 Nucleated Red Blood Cells # 0.0 Prothrombin Time 16.3 H Prothrombin Time Ratio 1.3 INR International Normalized Ratio 1.30 Activated Partial Thromboplast Time 31.7 Sodium Level 139 Potassium Level 4.3 Chloride Level 105 Carbon Dioxide Level 28 Anion Gap 6 Blood Urea Nitrogen 23 H Creatinine 1.09 Est Glomerular Filtrat Rate mL/min > 60 Glucose Level 241 H Calcium Level 8.9 Total Bilirubin 0.4 Direct Bilirubin 0.00 Indirect Bilirubin 0.4 Aspartate Amino Transf (AST/SGOT) 15 Alanine Aminotransferase (ALT/SGPT) 14 Alkaline Phosphatase 112 Total Protein 6.8 Albumin 3.4 Globulin 3.40 H Albumin/Globulin Ratio 1.00 POC Venous Lactate 1.4 HPI/ROS Admit Date/Time Admit Date/Time January 17, 2019 at 22:34 Hx of Present Illness Chief complaint: Bilateral lower extremity wound This is a 63-year-old male with a history of diabetes, chronic bilateral lower extremity wounds, sacral wounds, presenting with complaints of pain in bilateral lower extremities that is chronic and worsening. He was admitted here in October. He states that he was supposed to follow-up in wound clinic but never received information for this. He was supposed to have a nurse come out to the transitional home where he is living, however nurse never came. No one has been taking care of his wounds. He denies any fevers or chills. He complains of severe pain in bilateral lower extremities, 8 out of 10, burning, no alleviating or exacerbating factors, constant. Allergies: NKDA Medications: See Nov Const: As per HPI Eyes : No pain discharge or redness or change in visual acuity ENT: No pain, sore throat, congestion, congestion, dysphagia or discharge Respiratory: No shortness of breath, cough, sputum, wheezing, or pleuritic pain Cardiovascular: No chest pain, palpitation, PND, or edema GI : no change in appetite, abdominal pain, nausea, vomiting, diarrhea, constipation, or change in the color his stool Genitourinary: No dysuria, hematuria, flank pain , discharge or CVA tenderness Musculoskeletal: As per HPI Skin: As per HPI Neuro: No headache, dizziness, syncope, seizure, focal weakness Endocrine: No polyuria, polydipsia, temperature intolerance Psych: No hallucination, depression, anxiety or suicidal ideation PMH/Family/Social Past Medical History Bilateral lower extremity chronic wounds, sacral wound, hypertension, diabetes Medications Current Medications Ondansetron HCl (Zofran Inj) 4 mg BRIDGE ORDER PRN IV NAUSEA/VOMITING; Start 01/17/19 at 23:00; Stop 01/18/19 at 22:59 Acetaminophen (Tylenol Tab) 650 mg ER BRIDGE PRN PO .MILD PAIN 1-3 OR TEMP; Start 5/17/19 at 23:00; Stop 01/18/19 at 22:59 Famotidine (Pepcid) 20 mg Q12 PO ; Start 01/18/19 at 09:00 Acetaminophen/ Hydrocodone Bitart ([place] (10/325)) 10 tab Q6 PO ; Start 01/18/19 at 06:00 Lisinopril (Zestril) 20 mg DAILY PO ; Start 01/18/19 at 09:00 Metoprolol Tartrate (Lopressor) 50 mg BID PO ; Start 01/18/19 at 09:00 IV Flush (NS 3 ml) 3 ml PER PROTOCOL IV ; Start 01/18/19 at 00:30 Ondansetron HCl (Zofran Inj) 4 mg Q6H PRN IV NAUSEA/VOMITING; Start 01/18/19 at 00:30 Acetaminophen (Tylenol Tab) 650 mg Q6H PRN PO .PAIN 1-3 OR TEMP; Start 01/18/19 at 00:30 Morphine Sulfate (morphine) 2 mg Q4H PRN IV .SEVERE PAIN 7-10; Start 01/18/19 at 00:30 Hydralazine HCl (Apresoline) 10 mg Q4H PRN IV ELEVATED BLOOD PRESSURE; Start 01/18/19 at 00:30 Coded Allergies: No Known Allergy (Unverified , 10/22/18) Past Surgical History Left hip surgery Social History Alcohol Use: none Smoking Status: Current every day smoker Drug Use: none Exam/Review of Systems Vital Signs Vitals Vital Signs Date Temp Pulse Resp B/P (MAP) Pulse Ox O2 O2 Flow FiO2 Time Delivery Rate 01/18/19 98.2 83 20 164/79 100 00:15 (107) 01/17/19 Room Air 23:36 Exam Exam General: Pleasant male currently lying in bed in no acute distress, HEENT: Atraumatic, normocephalic. The pupils are equal, round and reactive. Extraocular motor are intact Neck: Supple with full range of motion. No rigidity or meningismus Chest: Nontender Lungs: Clear to auscultation bilaterally no crackles rales or wheezing Heart: Normal S1-S2, Regular rhythm and rate. No murmur, S3, or S4 Abdomen: Soft , nontender, nondistended , bowel sounds are present. No guarding no rebound tenderness , No masses or organomegaly. No costovertebral temporal angle mass Extremities: Bilateral lower feet currently in dressing and patient refused to let me examine him. Following exam was obtained from the ED physician examination: No cyanosis, or edema bilateral lower extremity pedal edema with multiple wounds, appear infected on the left side. Unable to palpate DP and PT pulses bilaterally. Compartments soft. No calf tenderness. Limited range of motion of bilateral legs which is chronic. Neurologic: Normal mental status, speech normal, cranial nerves II through XII are intact, motor and sensory are intact Additional Comments PROCEDURE: XR Chest. CLINICAL INDICATION: Chest pain. Possible Save TECHNIQUE: Portable AP view of the chest was obtained. COMPARISON: 10/23/2018 FINDINGS: The cardiomediastinal silhouette is within normal limits. The lungs are clear. There is no evidence for pleural effusion, pneumothorax or pulmonary vascular congestion. The osseous structures are intact with no evidence for acute abnormality. Previously seen PICC line has been removed RPTAT:HJJR IMPRESSION: No evidence for acute intrathoracic pathology. Physician Ritesh Date Time Electronically viewed and signed by Physician Ritesh on 01/17/2019 21:19 JR/ CC: CHUYITA MARADIAGA MD [id number] BAMBI GALO January 18, 2019 00:28
[2019-01-18] MEDS ORDERED: ACETAMINOPHEN 325 MG TAB PO PRN (00:30)
[2019-01-18] MEDS ORDERED: NACL 0.9% 3 ML SYG IV SCH (00:30)
[2019-01-18] MEDS ORDERED: ONDANSETRON 4 MG INJ IV PRN (00:30)
[2019-01-18] MEDS ORDERED: COLLAGENASE 5 GM (UD JAR) TOP ONE (00:51)
[2019-01-18] MEDS: morphine 2 MG INJ IV PRN (01:25)
[2019-01-18] MEDS ORDERED: GLUCAGON 1 MG INJ IM PRN (01:30)
[2019-01-18] MEDS ORDERED: GLUCOSE GEL 15 GRAM TUBE PO PRN ×2 (01:30)
[2019-01-18] MEDS ORDERED: DEXTROSE 50% 50 ML SYRINGE IV PRN ×2 (01:30)
[2019-01-18] MEDS ORDERED: GLUCOSE GEL 15 GRAM TUBE BUCCAL PRN (01:30)
[2019-01-18] MEDS: ACCU-CHEK XX SCH (02:00)
[2019-01-18 02:27] VITALS: BP 186/90; PULSE 86; RESP 20
[2019-01-18] MEDS: hydrALAzine 20 MG INJ IV PRN (02:38)
[2019-01-18] MEDS ORDERED: PENDING SANTYL ORDER FOR WOUND CARE XX PRN (06:00)
[2019-01-18] MEDS: HYDROCODONE/APAP (10/325) TAB PO SCH ×4 (06:13→23:52)
[2019-01-18] MEDS ORDERED: COLLAGENASE 5 GM (UD JAR) TOP PRN (06:30)
[2019-01-18] MEDS ORDERED: VANCOMYCIN IV PER PHARMACY XX SCH (08:00)
[2019-01-18 08:07] VITALS: BP 161/77; PULSE 80; RESP 20
[2019-01-18] MEDS: COLLAGENASE 5 GM (UD JAR) TOP SCH (08:22)
[2019-01-18] MEDS: METOPROLOL 50 MG TAB PO SCH ×2 (08:23→20:11)
[2019-01-18] MEDS: INSULIN ASPART [NOVOLOG] 3 ML PEN SC SCH ×5 (08:24→20:06)
[2019-01-18] MEDS: VANCOMYCIN 750 MG (PMX) 250 ML IVPB SCH ×2 (08:24→20:05)
[2019-01-18] MEDS: FAMOTIDINE 20 MG TAB PO SCH ×2 (08:24→20:05)
[2019-01-18] MEDS ORDERED: LISINOPRIL 20 MG TAB PO SCH (09:00)
[2019-01-18] MEDS: PIPER-TAZO 3.375 GM IV (PMX) 100 ML IVPB SCH ×4 (11:15→23:49)
[2019-01-18] MEDS: HEPARIN 5,000 UNIT/1 ML VIAL SC SCH ×2 (11:16→20:14)
[2019-01-18] MEDS ORDERED: LISINOPRIL 20 MG TAB PO ONE (11:30)
--- NOTE | 2019-01-18 12:01 | PN ---
Date/Time of Note Date/Time of Note DATE: 01/18/19 TIME: 12:00 Assessment/Plan VTE Prophylaxis Risk score (from Ns)>0 risk: 4 SCD applied (from Ns): No SCD contraindicated: other Pharmacological prophylaxis: heparin Lines/Catheters IV Catheter Type (from [facility]): Saline Lock Assessment/Plan Hospital Course SUBJECTIVE: Lying in bed comfortably. No acute distress. OBJECTIVE: Vital signs-see below PHYSICAL EXAM: Constitutional: Adequately built,not in acute distress. HEENT: Head atraumatic and normocephalic. Eyes: Extraocular muscles intact. Anicteric sclerae. Pupils equal bilaterally, reactive to light. NECK: Supple without lymph node. CHEST: Clear and good breath sounds equally. No wheezing. No rhonchi. HEART: S1, S2. Regular rate and rhythm. ABDOMEN: Soft/non tender with no rebound tenderness. Bowel sounds were present. EXTREMITIES: Crow.LEs w/multiple dry wounds. +Fungi nails.Generalized weakness/mild contractures x4 extremities. No cyanosis, clubbing or edema. NEUROLOGIC: Alert and oriented x3. No focal deficit. No sensory deficit. PSYCHOSOCIAL: No signs of depression. INTEGUMENTARY: No open wounds. ASSESSMENT AND PLAN:63 yo wheelchair bounded M w/dm2/dm ulcers/decubs admitted w/worsening crow LEs wouds .. Bilateral LE diabetic wounds/cellulitis -Podiatry consult -Wound care -Antibiotics and cultures Poorly controlled DMII -Start Lantus and pre-meal bolus. Continue Accu-Cheks/sliding scale -Diabetic education Sacral decubitus ulcers -Wound care/wound care consult Onychomycosis -f/u podiatry recommendations. Hypertension -Poorly managed -Uptitrate PREETI inhibitors. Continue beta-blockers. If BP still remains high, will add a third regimen. Anemia w/ iron deficiency+ chronic inflammation -Ferrlecit IV x3 doses followed by oral regimen -Monitor H&H closely and will transfuse if needed. Debility -pt lives in a transitional care unit with no caregiver assistance. Patient is unable to take care of himself and he requires wound care. Case management to assist with custodial placement. -PT evaluation DVT prophylaxis: Heparin Disposition: Continue wound care. Follow-up cultures. Seem to work on placement. Patient was seen in collaboration with Dr. Guerra Result Diagram: 01/18/19 1012 01/18/19 1012 Results 24hrs Laboratory Tests Test 01/17/19 21:09 01/17/19 21:17 01/18/19 01:12 01/18/19 01:23 White Blood Count 7.1 Red Blood Count 3.19 L Hemoglobin 8.4 L Hematocrit 27.5 L Mean Corpuscular 86.2 Volume Mean Corpuscular 26.3 L Hemoglobin Mean Corpuscular 30.5 L Hemoglobin Concent Red Cell 14.8 H Distribution Width Platelet Count 419 #H Mean Platelet Volume 9.8 Immature 0.300 Granulocytes % Neutrophils % 69.8 Lymphocytes % 21.7 Monocytes % 5.8 Eosinophils % 1.4 Basophils % 1.0 Nucleated Red Blood 0.0 Cells % Immature 0.020 Granulocytes # Neutrophils # 5.0 Lymphocytes # 1.5 Monocytes # 0.4 Eosinophils # 0.1 Basophils # 0.1 Nucleated Red Blood 0.0 Cells # Prothrombin Time 16.3 H Prothrombin Time 1.3 Ratio INR International 1.30 Normalized Ratio Activated 31.7 Partial Thromboplast Time Sodium Level 139 Potassium Level 4.3 Chloride Level 105 Carbon Dioxide Level 28 Anion Gap 6 Blood Urea Nitrogen 23 H Creatinine 1.09 Est Glomerular > 60 Filtrat Rate mL/min Glucose Level 241 H Calcium Level 8.9 Total Bilirubin 0.4 Direct Bilirubin 0.00 Indirect Bilirubin 0.4 Aspartate Amino 15 Transf (AST/SGOT) Alanine 14 Aminotransferase (AL T/SGPT) Alkaline Phosphatase 112 Total Protein 6.8 Albumin 3.4 Globulin 3.40 H Albumin/Globulin 1.00 Ratio POC Venous Lactate 1.4 Lactic Acid Level 1.1 Bedside Glucose 205 Test 01/18/19 08:14 01/18/19 10:12 Bedside Glucose 240 H White Blood Count 5.2 # Red Blood Count 2.92 L Hemoglobin 7.6 L Hematocrit 25.2 L Mean Corpuscular 86.3 Volume Mean Corpuscular 26.0 L Hemoglobin Mean Corpuscular 30.2 L Hemoglobin Concent Red Cell 15.1 H Distribution Width Platelet Count 337 Mean Platelet Volume 10.7 H Immature 0.200 Granulocytes % Neutrophils % 68.6 Lymphocytes % 21.5 Monocytes % 6.4 Eosinophils % 2.3 Basophils % 1.0 Nucleated Red Blood 0.0 Cells % Immature 0.010 Granulocytes # Neutrophils # 3.5 Lymphocytes # 1.1 Monocytes # 0.3 Eosinophils # 0.1 Basophils # 0.1 Nucleated Red Blood 0.0 Cells # Sodium Level 140 Potassium Level 4.7 Chloride Level 110 Carbon Dioxide Level 26 Anion Gap 4 L Blood Urea Nitrogen 23 H Creatinine 0.96 Est Glomerular > 60 Filtrat Rate mL/min Glucose Level 216 Hemoglobin A1c 7.1 H Calcium Level 8.2 L Magnesium Level 1.8 Iron Level 29 L Total Iron Binding 221 L Capacity Percent Iron 13 L Saturation Ferritin Pending Total Bilirubin 0.3 Direct Bilirubin 0.00 Indirect Bilirubin 0.3 Aspartate Amino 13 L Transf (AST/SGOT) Alanine 12 L Aminotransferase (AL T/SGPT) Alkaline Phosphatase 103 C-Reactive Protein 1.1 H Total Protein 6.0 L Albumin 2.7 L Globulin 3.30 H Albumin/Globulin 0.81 Ratio Triglycerides Level 47 Cholesterol Level 109 LDL Cholesterol, 65 Calculated HDL Cholesterol 35 Cholesterol/HDL 3.1 Ratio Thyroid Stimulating Pending Hormone (TSH) Exam/Review of Systems Exam Vitals Vital Signs Date Temp Pulse Resp B/P (MAP) Pulse Ox O2 O2 Flow FiO2 Time Delivery Rate 01/18/19 98.2 80 20 161/77 100 08:07 (105) 01/17/19 Room Air 23:36 Intake and Output 01/17/19 01/17/19 01/18/19 1515:00 23:00 07:00 IntakeIntake Total 250 ml OutputOutput Total 300 ml BalanceBalance -50 ml Results Results 24hrs Laboratory Tests Test 01/17/19 21:09 01/17/19 21:17 01/18/19 01:12 01/18/19 01:23 White Blood Count 7.1 Red Blood Count 3.19 L Hemoglobin 8.4 L Hematocrit 27.5 L Mean Corpuscular 86.2 Volume Mean Corpuscular 26.3 L Hemoglobin Mean Corpuscular 30.5 L Hemoglobin Concent Red Cell 14.8 H Distribution Width Platelet Count 419 #H Mean Platelet Volume 9.8 Immature 0.300 Granulocytes % Neutrophils % 69.8 Lymphocytes % 21.7 Monocytes % 5.8 Eosinophils % 1.4 Basophils % 1.0 Nucleated Red Blood 0.0 Cells % Immature 0.020 Granulocytes # Neutrophils # 5.0 Lymphocytes # 1.5 Monocytes # 0.4 Eosinophils # 0.1 Basophils # 0.1 Nucleated Red Blood 0.0 Cells # Prothrombin Time 16.3 H Prothrombin Time 1.3 Ratio INR International 1.30 Normalized Ratio Activated 31.7 Partial Thromboplast Time Sodium Level 139 Potassium Level 4.3 Chloride Level 105 Carbon Dioxide Level 28 Anion Gap 6 Blood Urea Nitrogen 23 H Creatinine 1.09 Est Glomerular > 60 Filtrat Rate mL/min Glucose Level 241 H Calcium Level 8.9 Total Bilirubin 0.4 Direct Bilirubin 0.00 Indirect Bilirubin 0.4 Aspartate Amino 15 Transf (AST/SGOT) Alanine 14 Aminotransferase (AL T/SGPT) Alkaline Phosphatase 112 Total Protein 6.8 Albumin 3.4 Globulin 3.40 H Albumin/Globulin 1.00 Ratio POC Venous Lactate 1.4 Lactic Acid Level 1.1 Bedside Glucose 205 Test 01/18/19 08:14 01/18/19 10:12 Bedside Glucose 240 H White Blood Count 5.2 # Red Blood Count 2.92 L Hemoglobin 7.6 L Hematocrit 25.2 L Mean Corpuscular 86.3 Volume Mean Corpuscular 26.0 L Hemoglobin Mean Corpuscular 30.2 L Hemoglobin Concent Red Cell 15.1 H Distribution Width Platelet Count 337 Mean Platelet Volume 10.7 H Immature 0.200 Granulocytes % Neutrophils % 68.6 Lymphocytes % 21.5 Monocytes % 6.4 Eosinophils % 2.3 Basophils % 1.0 Nucleated Red Blood 0.0 Cells % Immature 0.010 Granulocytes # Neutrophils # 3.5 Lymphocytes # 1.1 Monocytes # 0.3 Eosinophils # 0.1 Basophils # 0.1 Nucleated Red Blood 0.0 Cells # Sodium Level 140 Potassium Level 4.7 Chloride Level 110 Carbon Dioxide Level 26 Anion Gap 4 L Blood Urea Nitrogen 23 H Creatinine 0.96 Est Glomerular > 60 Filtrat Rate mL/min Glucose Level 216 Hemoglobin A1c 7.1 H Calcium Level 8.2 L Magnesium Level 1.8 Iron Level 29 L Total Iron Binding 221 L Capacity Percent Iron 13 L Saturation Ferritin Pending Total Bilirubin 0.3 Direct Bilirubin 0.00 Indirect Bilirubin 0.3 Aspartate Amino 13 L Transf (AST/SGOT) Alanine 12 L Aminotransferase (AL T/SGPT) Alkaline Phosphatase 103 C-Reactive Protein 1.1 H Total Protein 6.0 L Albumin 2.7 L Globulin 3.30 H Albumin/Globulin 0.81 Ratio Triglycerides Level 47 Cholesterol Level 109 LDL Cholesterol, 65 Calculated HDL Cholesterol 35 Cholesterol/HDL 3.1 Ratio Thyroid Stimulating Pending Hormone (TSH) Medications Medication Current Medications Famotidine (Pepcid) 20 mg Q12 PO Last administered on 01/18/19 08:24; Admin Dose 20 MG; Start 01/18/19 at 09:00 Acetaminophen/ Hydrocodone Bitart (Manson (10/325)) 1 tab Q6 PO Last administered on 01/18/19 06:13; Admin Dose 1 TAB; Start 01/18/19 at 06:00 Metoprolol Tartrate (Lopressor) 50 mg BID PO Last administered on 01/18/19 08:23; Admin Dose 50 MG; Start 01/18/19 at 09:00 IV Flush (NS 3 ml) 3 ml PER PROTOCOL IV ; Start 01/18/19 at 00:30 Ondansetron HCl (Zofran Inj) 4 mg Q6H PRN IV NAUSEA/VOMITING; Start 01/18/19 at 00:30 Acetaminophen (Tylenol Tab) 650 mg Q6H PRN PO .PAIN 1-3 OR TEMP; Start 01/18/19 at 00:30 Morphine Sulfate (morphine) 2 mg Q4H PRN IV .SEVERE PAIN 7-10 Last administered on 01/18/19at 01:25; Admin Dose 2 MG; Start 01/18/19 at 00:30 Hydralazine HCl (Apresoline) 10 mg Q4H PRN IV ELEVATED BLOOD PRESSURE Last administered on 01/18/19at 02:38; Admin Dose 10 MG; Start 01/18/19 at 00:30 Diagnostic Test (Pha) (Accu-Chek) 1 ea 02 XX ; Start 01/18/19 at 02:00 Insulin Aspart (Novolog Insulin Pen) NOVOLOG *MILD* ALGORITHM WITH MEALS BEDTIME SC Last administered on 01/18/19at 08:24; Admin Dose 3 UNIT; Start 01/18/19 at 08:00 Miscellaneous Information 1 ea NOTE XX ; Start 01/18/19 at 01:30 Glucose (Glutose) 15 gm Q15M PRN PO DECREASED GLUCOSE; Start 01/18/19 at 01:30 Glucose (Glutose) 22.5 gm Q15M PRN PO DECREASED GLUCOSE; Start 01/18/19 at 01:30 Dextrose (D50w Syringe) 25 ml Q15M PRN IV DECREASED GLUCOSE; Start 01/18/19 at 01:30 Dextrose (D50w Syringe) 50 ml Q15M PRN IV DECREASED GLUCOSE; Start 01/18/19 at 01:30 Glucagon (Glucagen) 1 mg Q15M PRN IM DECREASED GLUCOSE; Start 01/18/19 at 01:30 Glucose (Glutose) 15 gm Q15M PRN BUCCAL DECREASED GLUCOSE; Start 01/18/19 at 01:30 Miscellaneous Information (Pending Santyl Order For Wound Care) This patient koch... PRN PRN XX WOUND CARE; Start 01/18/19 at 06:00 Collagenase (Santyl) 1 applic DAILY TOP Last administered on 01/18/19at 08:22; Admin Dose 1 APPLIC; Start 01/18/19 at 09:00 Collagenase (Santyl) 1 applic PRN PRN TOP SOIL; Start 01/18/19 at 06:30 Vancomycin HCl (Vanco Iv Per Pharmacy) VANCOMYCIN PER PHARMACY PER PROTOCOL XX ; Start 01/18/19 at 08:00 Piperacillin Sod/ Tazobactam Sod 100 ml @ 200 mls/hr Q6 IVPB Last administered on 01/18/19at 11:15; Admin Dose 200 MLS/HR; Start 01/18/19 at 08:00 Vancomycin/Sodium Chloride 250 ml @ 125 mls/hr Q12H IVPB Last administered on 01/18/19at 08:24; Admin Dose 125 MLS/HR; Start 01/18/19 at 08:30 Heparin Sodium (Porcine) (Heparin (5000 Units/1ml)) 5,000 unit BID SC Last administered on 01/18/19at 11:16; Admin Dose 5,000 UNIT; Start 01/18/19 at 09:00 Miscellaneous Information (*Rx Drug Level Order Reminder*) VANCOMYCIN TROUGH AT 0730 ONCE ONCE XX ; Start 01/19/19 at 07:30; Stop 01/19/19 at 07:31 Lisinopril (Zestril) 40 mg DAILY PO ; Start 01/19/19 at 09:00 SAMUEL CAMPOS NP January 18, 2019 12:01
--- NOTE | 2019-01-18 12:44 | CONS ---
Assessment/Plan Assessment/Plan Assessment/Plan (Daily) Diabetic ulcers b/l lower extremities DM2 with peripheral neuropathy Onychomycosis Tinea Pedis PAD Debility Nicotine dependence Hx of drug abuse Plan Consent was obtained and performed excisional debridement of skin/subQ of bilateral lower extremity ulcerations sites using a scalpel and pickup/scissors. Necrotic tissue, biofilm and skin slough removed. Wound cultures pending, recommend daily dressing changes. X-rays pending. Continue abx per recommendations. Offload heels with pillows. Patient would benefit from SNF placement and follow up in outpatient wound clinic [facility]. Nails debrided x10 with nail nipper. Consultation Date/Type/Reason Admit Date/Time January 17, 2019 at 22:34 Date/Time of Note DATE: 01/18/19 TIME: 12:43 Hx of Present Illness 63 y/o diabetic male patient who lives at a custodial home presents with chronic wounds and reports it has been present for over 6 months. Patient does not recall how the wounds started patient reports intermittent pain to the wound sites. He also reports chronic lower extremity weakness for over 9 years denies any significant inciting event. Patient states he has not had a home health nurse assist him with his wounds. Denies constitutional symptoms. ROS negative except for HPI Past Medical History diabetes, chronic bilateral lower extremity wounds, sacral wounds, hx of polysubstance drug abuse. Home Meds Active Scripts Lisinopril* (Lisinopril*) 20 Mg Tablet, 20 MG PO DAILY for 30 Days, TAB Prov:CARO CORONEL MD 10/24/18 Famotidine* (Famotidine*) 20 Mg Tablet, 20 MG PO Q12 for 10 Days, TAB Prov:CARO CORONEL MD 10/23/18 Reported Medications Hydrocodone/Acetaminophen ([place] 10-325 Tablet) 1 Each Tablet, 1 EACH PO, TAB 10/22/18 Metoprolol Tartrate* (Lopressor*) 50 Mg Tab, 50 MG PO BID, #60 TAB 10/22/18 Metformin* (Glucophage*) 1,000 Mg Tablet, 1000 MG PO WITH BREAKFAST DINNE, #30 TAB 10/22/18 Discontinued Scripts Metoprolol Tartrate* (Lopressor*) 50 Mg Tab, 50 MG PO BID for 30 Days, TAB Prov:CARO CORONEL MD 10/24/18 Ceftriaxone Sod* (Rocephin* 1GM/50ML (PMX)) 1 Gm/50 Ml Iv.soln., 1 GM IVPB Q24H for 10 Days, EA Prov:CARO CORONEL MD 10/23/18 Sitagliptin* (Januvia*) 50 Mg Tablet, 50 MG PO DAILY, #30 TAB Prov:CARO CORONEL MD 10/23/18 Acetaminophen* (Tylenol*) 325 Mg Tablet, 650 MG PO Q6H PRN for .PAIN 1-3 OR TEMP for 10 Days, TAB Prov:CARO CORONEL MD 10/23/18 Enoxaparin Sodium (Enoxaparin Sodium) 40 Mg/0.4 Ml Syringe, 40 MG SC DAILY for 10 Days Prov:CARO CORONEL MD 10/23/18 Vancomycin/0.9 % Sod Chloride (Vanco 1 Gram/250 ml-0.9% NaCl) 1 Gm/250 Ml Plast..bag, 1 GM IV DAILY for 10 Days Prov:CARO CORONEL MD 10/23/18 [Vancomycin Iv Per Pharmacy] 1 EA EACH No Conflict Check, 0 EA XX .PER PROTOCOL for 10 Days Prov:CARO CORONEL MD 10/23/18 Medications Current Medications Famotidine (Pepcid) 20 mg Q12 PO Last administered on 01/18/19at 08:24; Admin Dose 20 MG; Start 01/18/19 at 09:00 Acetaminophen/ Hydrocodone Bitart ([place] (10325)) 1 tab Q6 PO Last administered on 01/18/19at 06:13; Admin Dose 1 TAB; Start 01/18/19 at 06:00 Metoprolol Tartrate (Lopressor) 50 mg BID PO Last administered on 01/18/19at 08:23; Admin Dose 50 MG; Start 01/18/19 at 09:00 IV Flush (NS 3 ml) 3 ml PER PROTOCOL IV ; Start 01/18/19 at 00:30 Ondansetron HCl (Zofran Inj) 4 mg Q6H PRN IV NAUSEA/VOMITING; Start 01/18/19 at 00:30 Acetaminophen (Tylenol Tab) 650 mg Q6H PRN PO .PAIN 1-3 OR TEMP; Start 01/18/19 at 00:30 Morphine Sulfate (morphine) 2 mg Q4H PRN IV .SEVERE PAIN 7-10 Last administered on 01/18/19at 01:25; Admin Dose 2 MG; Start 01/18/19 at 00:30 Hydralazine HCl (Apresoline) 10 mg Q4H PRN IV ELEVATED BLOOD PRESSURE Last administered on 01/18/19at 02:38; Admin Dose 10 MG; Start 01/18/19 at 00:30 Diagnostic Test (Pha) (Accu-Chek) 1 ea 02 XX ; Start 01/18/19 at 02:00 Insulin Aspart (Novolog Insulin Pen) NOVOLOG *MILD* ALGORITHM WITH MEALS BEDTIME SC Last administered on 01/18/19at 12:16; Admin Dose 2 UNIT; Start 01/18/19 at 08:00 Miscellaneous Information 1 ea NOTE XX ; Start 01/18/19 at 01:30 Glucose (Glutose) 15 gm Q15M PRN PO DECREASED GLUCOSE; Start 01/18/19 at 01:30 Glucose (Glutose) 22.5 gm Q15M PRN PO DECREASED GLUCOSE; Start 01/18/19 at 01:30 Dextrose (D50w Syringe) 25 ml Q15M PRN IV DECREASED GLUCOSE; Start 01/18/19 at 01:30 Dextrose (D50w Syringe) 50 ml Q15M PRN IV DECREASED GLUCOSE; Start 01/18/19 at 01:30 Glucagon (Glucagen) 1 mg Q15M PRN IM DECREASED GLUCOSE; Start 01/18/19 at 01:30 Glucose (Glutose) 15 gm Q15M PRN BUCCAL DECREASED GLUCOSE; Start 01/18/19 at 01:30 Miscellaneous Information (Pending Santyl Order For Wound Care) This patient koch... PRN PRN XX WOUND CARE; Start 01/18/19 at 06:00 Collagenase (Santyl) 1 applic DAILY TOP Last administered on 01/18/19at 08:22; Admin Dose 1 APPLIC; Start 01/18/19 at 09:00 Collagenase (Santyl) 1 applic PRN PRN TOP SOIL; Start 01/18/19 at 06:30 Vancomycin HCl (Vanco Iv Per Pharmacy) VANCOMYCIN PER PHARMACY PER PROTOCOL XX ; Start 01/18/19 at 08:00 Piperacillin Sod/ Tazobactam Sod 100 ml @ 200 mls/hr Q6 IVPB Last administered on 01/18/19at 11:15; Admin Dose 200 MLS/HR; Start 01/18/19 at 08:00 Vancomycin/Sodium Chloride 250 ml @ 125 mls/hr Q12H IVPB Last administered on 01/18/19at 08:24; Admin Dose 125 MLS/HR; Start 01/18/19 at 08:30 Heparin Sodium (Porcine) (Heparin (5000 Units/1ml)) 5,000 unit BID SC Last administered on 01/18/19at 11:16; Admin Dose 5,000 UNIT; Start 01/18/19 at 09:00 Miscellaneous Information (*Rx Drug Level Order Reminder*) VANCOMYCIN TROUGH AT 0730 ONCE ONCE XX ; Start 01/19/19 at 07:30; Stop 01/19/19 at 07:31 Lisinopril (Zestril) 40 mg DAILY PO ; Start 01/19/19 at 09:00 Insulin Glargine (Lantus) 20 units DAILY@0800 SC ; Start 01/18/19 at 13:00 Insulin Aspart (Novolog Insulin Pen) 5 unit WITH MEALS SC Last administered on 01/18/19at 12:16; Admin Dose 5 UNIT; Start 01/18/19 at 17:35 Ferric Sodium Gluconate Complex 125 mg/Sodium Chloride 100 ml @ 100 mls/hr DAILY@1300 IVPB ; Start 01/18/19 at 13:00; Stop 01/20/19 at 13:59 Allergies: Coded Allergies: No Known Allergy (Unverified , 10/22/18) Past Surgical History Left hip surgery Family History Significant Family History: no pertinent family hx Social History Alcohol Use: none Smoking Status: Current every day smoker Drug Use: none Exam/Review of Systems Exam Vitals Vital Signs Date Temp Pulse Resp B/P (MAP) Pulse Ox O2 O2 Flow FiO2 Time Delivery Rate 01/18/19 98.2 80 20 161/77 100 08:07 (105) 01/17/19 Room Air 23:36 Intake and Output 01/17/19 01/17/19 01/18/19 1515:00 23:00 07:00 IntakeIntake Total 250 ml OutputOutput Total 300 ml BalanceBalance -50 ml Exam DP/PT pulses weakly palpable Absent protective sensations Elongated mycotic toe nails Right lateral foot ulcer 2 x 2 x 0.2cm granular in nature, no probing to bone, no purulent drainage Right lateral ankle 3 x 1 x 0.2cm granular in nature, dry wound base, no probing to bone, no proximal streaking, no purulence Right plantar 1st metatarsal 2.5 x 2 x 0.2, granular in nature, no probing to bone, no purulent drainage Left medial ankle 5 x 3 x 0.2cm granular in nature, no probing to bone, no purulent drainage Left medial 1st metatarsal region 0.4 x 0.4 x 0.2cm granular in nature, no probing to bone, no purulent drainage Left hallux distal aspect 2.5 x 2.5 x 0.2cm granular in nature, no probing to bone, no purulent drainage Left lateral 5th metatarsal 1 x 1 x 0.2cm granular in nature, dry wound base, no probing to bone, no purulent drainage Non invasive arterial studies IMPRESSION: Monophasic waveforms below the knee bilaterally. Monophasic wave form in the left popliteal artery. Results Result Diagram: 01/18/19 1012 01/18/19 1012 Results 24hrs Laboratory Tests Test 01/17/19 21:09 01/17/19 21:17 01/18/19 01:12 01/18/19 01:23 White Blood Count 7.1 Red Blood Count 3.19 L Hemoglobin 8.4 L Hematocrit 27.5 L Mean Corpuscular 86.2 Volume Mean Corpuscular 26.3 L Hemoglobin Mean Corpuscular 30.5 L Hemoglobin Concent Red Cell 14.8 H Distribution Width Platelet Count 419 #H Mean Platelet Volume 9.8 Immature 0.300 Granulocytes % Neutrophils % 69.8 Lymphocytes % 21.7 Monocytes % 5.8 Eosinophils % 1.4 Basophils % 1.0 Nucleated Red Blood 0.0 Cells % Immature 0.020 Granulocytes # Neutrophils # 5.0 Lymphocytes # 1.5 Monocytes # 0.4 Eosinophils # 0.1 Basophils # 0.1 Nucleated Red Blood 0.0 Cells # Prothrombin Time 16.3 H Prothrombin Time 1.3 Ratio INR International 1.30 Normalized Ratio Activated 31.7 Partial Thromboplast Time Sodium Level 139 Potassium Level 4.3 Chloride Level 105 Carbon Dioxide Level 28 Anion Gap 6 Blood Urea Nitrogen 23 H Creatinine 1.09 Est Glomerular > 60 Filtrat Rate mL/min Glucose Level 241 H Calcium Level 8.9 Total Bilirubin 0.4 Direct Bilirubin 0.00 Indirect Bilirubin 0.4 Aspartate Amino 15 Transf (AST/SGOT) Alanine 14 Aminotransferase (AL T/SGPT) Alkaline Phosphatase 112 Total Protein 6.8 Albumin 3.4 Globulin 3.40 H Albumin/Globulin 1.00 Ratio POC Venous Lactate 1.4 Lactic Acid Level 1.1 Bedside Glucose 205 Test 01/18/19 08:14 01/18/19 10:12 01/18/19 12:11 Bedside Glucose 240 H 190 White Blood Count 5.2 # Red Blood Count 2.92 L Hemoglobin 7.6 L Hematocrit 25.2 L Mean Corpuscular 86.3 Volume Mean Corpuscular 26.0 L Hemoglobin Mean Corpuscular 30.2 L Hemoglobin Concent Red Cell 15.1 H Distribution Width Platelet Count 337 Mean Platelet Volume 10.7 H Immature 0.200 Granulocytes % Neutrophils % 68.6 Lymphocytes % 21.5 Monocytes % 6.4 Eosinophils % 2.3 Basophils % 1.0 Nucleated Red Blood 0.0 Cells % Immature 0.010 Granulocytes # Neutrophils # 3.5 Lymphocytes # 1.1 Monocytes # 0.3 Eosinophils # 0.1 Basophils # 0.1 Nucleated Red Blood 0.0 Cells # Erythrocyte 68 H Sedimentation Rate Sodium Level 140 Potassium Level 4.7 Chloride Level 110 Carbon Dioxide Level 26 Anion Gap 4 L Blood Urea Nitrogen 23 H Creatinine 0.96 Est Glomerular > 60 Filtrat Rate mL/min Glucose Level 216 Hemoglobin A1c 7.1 H Calcium Level 8.2 L Magnesium Level 1.8 Iron Level 29 L Total Iron Binding 221 L Capacity Percent Iron 13 L Saturation Ferritin Pending Total Bilirubin 0.3 Direct Bilirubin 0.00 Indirect Bilirubin 0.3 Aspartate Amino 13 L Transf (AST/SGOT) Alanine 12 L Aminotransferase (AL T/SGPT) Alkaline Phosphatase 103 C-Reactive Protein 1.1 H Total Protein 6.0 L Albumin 2.7 L Globulin 3.30 H Albumin/Globulin 0.81 Ratio Triglycerides Level 47 Cholesterol Level 109 LDL Cholesterol, 65 Calculated HDL Cholesterol 35 Cholesterol/HDL 3.1 Ratio Thyroid Stimulating 2.970 Hormone (TSH) Medications Medication Current Medications Famotidine (Pepcid) 20 mg Q12 PO Last administered on 01/18/19at 08:24; Admin Dose 20 MG; Start 01/18/19 at 09:00 Acetaminophen/ Hydrocodone Bitart ([place] (10/325)) 1 tab Q6 PO Last administered on 01/18/19at 06:13; Admin Dose 1 TAB; Start 01/18/19 at 06:00 Metoprolol Tartrate (Lopressor) 50 mg BID PO Last administered on 01/18/19at 08:23; Admin Dose 50 MG; Start 01/18/19 at 09:00 IV Flush (NS 3 ml) 3 ml PER PROTOCOL IV ; Start 01/18/19 at 00:30 Ondansetron HCl (Zofran Inj) 4 mg Q6H PRN IV NAUSEA/VOMITING; Start 01/18/19 at 00:30 Acetaminophen (Tylenol Tab) 650 mg Q6H PRN PO .PAIN 1-3 OR TEMP; Start 01/18/19 at 00:30 Morphine Sulfate (morphine) 2 mg Q4H PRN IV .SEVERE PAIN 7-10 Last administered on 01/18/19at 01:25; Admin Dose 2 MG; Start 01/18/19 at 00:30 Hydralazine HCl (Apresoline) 10 mg Q4H PRN IV ELEVATED BLOOD PRESSURE Last administered on 01/18/19at 02:38; Admin Dose 10 MG; Start 01/18/19 at 00:30 Diagnostic Test (Pha) (Accu-Chek) 1 ea 02 XX ; Start 01/18/19 at 02:00 Insulin Aspart (Novolog Insulin Pen) NOVOLOG *MILD* ALGORITHM WITH MEALS BEDTIME SC Last administered on 01/18/19at 12:16; Admin Dose 2 UNIT; Start 01/18/19 at 08:00 Miscellaneous Information 1 ea NOTE XX ; Start 01/18/19 at 01:30 Glucose (Glutose) 15 gm Q15M PRN PO DECREASED GLUCOSE; Start 01/18/19 at 01:30 Glucose (Glutose) 22.5 gm Q15M PRN PO DECREASED GLUCOSE; Start 01/18/19 at 01:30 Dextrose (D50w Syringe) 25 ml Q15M PRN IV DECREASED GLUCOSE; Start 01/18/19 at 01:30 Dextrose (D50w Syringe) 50 ml Q15M PRN IV DECREASED GLUCOSE; Start 01/18/19 at 01:30 Glucagon (Glucagen) 1 mg Q15M PRN IM DECREASED GLUCOSE; Start 01/18/19 at 01:30 Glucose (Glutose) 15 gm Q15M PRN BUCCAL DECREASED GLUCOSE; Start 01/18/19 at 01:30 Miscellaneous Information (Pending [facility] Order For Wound Care) This patient koch... PRN PRN XX WOUND CARE; Start 01/18/19 at 06:00 Collagenase (Santyl) 1 applic DAILY TOP Last administered on 01/18/19at 08:22; Admin Dose 1 APPLIC; Start 01/18/19 at 09:00 Collagenase (Santyl) 1 applic PRN PRN TOP SOIL; Start 01/18/19 at 06:30 Vancomycin HCl (Vanco Iv Per Pharmacy) VANCOMYCIN PER PHARMACY PER PROTOCOL XX ; Start 01/18/19 at 08:00 Piperacillin Sod/ Tazobactam Sod 100 ml @ 200 mls/hr Q6 IVPB Last administered on 01/18/19at 11:15; Admin Dose 200 MLS/HR; Start 01/18/19 at 08:00 Vancomycin/Sodium Chloride 250 ml @ 125 mls/hr Q12H IVPB Last administered on 01/18/19at 08:24; Admin Dose 125 MLS/HR; Start 01/18/19 at 08:30 Heparin Sodium (Porcine) (Heparin (5000 Units/1ml)) 5,000 unit BID SC Last administered on 01/18/19at 11:16; Admin Dose 5,000 UNIT; Start 01/18/19 at 09:00 Miscellaneous Information (*Rx Drug Level Order Reminder*) VANCOMYCIN TROUGH AT 0730 ONCE ONCE XX ; Start 01/19/19 at 07:30; Stop 01/19/19 at 07:31 Lisinopril (Zestril) 40 mg DAILY PO ; Start 01/19/19 at 09:00 Insulin Glargine (Lantus) 20 units DAILY@0800 SC ; Start 01/18/19 at 13:00 Insulin Aspart (Novolog Insulin Pen) 5 unit WITH MEALS SC Last administered on 01/18/19at 12:16; Admin Dose 5 UNIT; Start 01/18/19 at 17:35 Ferric Sodium Gluconate Complex 125 mg/Sodium Chloride 100 ml @ 100 mls/hr DAILY@1300 IVPB ; Start 01/18/19 at 13:00; Stop 01/20/19 at 13:59 JOSSELYN NINO DPDai January 18, 2019 12:43
[2019-01-18] MEDS: DAKINS 0.0125%(1/40) 473 ML SOLUTION TP SCH (14:00)
[2019-01-18] MEDS: SOD FERRIC GLUC COMPLX 125 MG in SOD CHLORIDE 0.9% 100 ML IVPB SCH (14:15)
[2019-01-18 14:53] VITALS: BP 142/67; PULSE 70; RESP 16
[2019-01-18] MEDS: INSULIN GLARGINE [LANTus] (100 UNITS/ML) SYG SC SCH (15:00)
[2019-01-18 20:30] VITALS: BP 136/63; PULSE 76; RESP 18
[2019-01-19] MEDS: ACCU-CHEK XX SCH (02:00)
[2019-01-19 02:29] VITALS: BP_SYST 113; BP_SYST 175; BP_DIAS 57; BP_DIAS 80; PULSE 68; RESP 20
[2019-01-19] MEDS: hydrALAzine 20 MG INJ IV PRN (04:29)
[2019-01-19] MEDS: HYDROCODONE/APAP (10/325) TAB PO SCH ×3 (06:28→17:33)
[2019-01-19] MEDS: PIPER-TAZO 3.375 GM IV (PMX) 100 ML IVPB SCH ×4 (06:29→17:40)
[2019-01-19] MEDS: INSULIN ASPART [NOVOLOG] 3 ML PEN SC SCH ×7 (08:00→21:00)
[2019-01-19] MEDS: morphine 2 MG INJ IV PRN (08:04)
[2019-01-19] MEDS: METOPROLOL 50 MG TAB PO SCH ×2 (08:06→22:22)
[2019-01-19] MEDS: FAMOTIDINE 20 MG TAB PO SCH ×2 (08:06→22:23)
[2019-01-19] MEDS: LISINOPRIL 20 MG TAB PO SCH (08:07)
[2019-01-19] MEDS: HEPARIN 5,000 UNIT/1 ML VIAL SC SCH ×2 (08:10→21:00)
[2019-01-19] MEDS: INSULIN GLARGINE [LANTus] (100 UNITS/ML) SYG SC SCH (08:10)
[2019-01-19] MEDS: COLLAGENASE 5 GM (UD JAR) TOP SCH (08:13)
[2019-01-19] MEDS: DAKINS 0.0125%(1/40) 473 ML SOLUTION TP SCH (08:14)
[2019-01-19 08:16] VITALS: BP 155/73; PULSE 73; RESP 17
[2019-01-19] MEDS: VANCOMYCIN 750 MG (PMX) 250 ML IVPB SCH (08:56)
[2019-01-19] MEDS: SOD FERRIC GLUC COMPLX 125 MG in SOD CHLORIDE 0.9% 100 ML IVPB SCH (12:17)
--- NOTE | 2019-01-19 14:30 | PN ---
Date/Time of Note Date/Time of Note DATE: 01/19/19 TIME: 14:20 Assessment/Plan VTE Prophylaxis Risk score (from Ns)>0 risk: 5 SCD applied (from Ns): No SCD contraindicated: other Pharmacological prophylaxis: heparin Lines/Catheters IV C[facility]ter [facility]from [facility] Saline Lock Assessment/Plan Hospital Course SUBJECTIVE: Lying in bed comfortably. No acute distress. OBJECTIVE: Vital signs-see below PHYSICAL EXAM: Constitutional: Adequately built,not in acute distress. HEENT: Head atraumatic and normocephalic. Eyes: Extraocular muscles intact. Anicteric sclerae. Pupils equal bilaterally, reactive to light. NECK: Supple without lymph node. CHEST: Clear and good breath sounds equally. No wheezing. No rhonchi. HEART: S1, S2. Regular rate and rhythm. ABDOMEN: Soft/non tender with no rebound tenderness. Bowel sounds were present. EXTREMITIES: Crow.LEs w/multiple dry wounds. +Fungi nails.Generalized weakness/mild contractures x4 extremities. No cyanosis, clubbing or edema. NEUROLOGIC: Alert and oriented x3. No focal deficit. No sensory deficit. PSYCHOSOCIAL: No signs of depression. INTEGUMENTARY: No open wounds. ASSESSMENT AND PLAN:63 yo wheelchair bounded M w/dm2/dm ulcers/decubs admitted w/worsening crow LEs wouds .. Bilateral LE diabetic ulcers -s/p bedside excisional debridement -Wound care -Wound culture growing GNR/staph. Continue antibiotics and follow final cultures. DMII -Noted to tight control. De-escalate Lantus to 10 units. Discontinue pre-meal bolus. Start metformin 500 mg twice daily. -Diabetic education Peripheral neuropathy -Start gabapentin Sacral decubitus ulcers -Continue wound care Onychomycosis -s/p nail debridement -Clotrimazole cream Hypertension -Stable. Continue/beta-blockers Anemia w/ iron deficiency+ chronic inflammation -Getting iron replacement -Monitor H&H closely and will transfuse if needed. Debility - patient with lack of social support system. He would benefit from ECF. Case management to work on it. PT eval/treatment- DVT prophylaxis: Heparin Disposition: Continue wound care. Follow-up cultures. Patient was seen in collaboration with Dr. Guerra Result Diagram: 01/19/19 0727 01/19/19 0727 Results 24hrs Laboratory Tests Test 01/18/19 17:23 01/18/19 19:59 01/19/19 07:27 01/19/19 07:49 Bedside Glucose 81 135 87 White Blood Count 4.0 #L Red Blood Count 3.05 L Hemoglobin 7.9 L Hematocrit 26.0 L Mean Corpuscular 85.2 Volume Mean Corpuscular 25.9 L Hemoglobin Mean Corpuscular 30.4 L Hemoglobin Concent Red Cell 15.1 H Distribution Width Platelet Count 339 Mean Platelet Volume 9.8 Immature 0.200 Granulocytes % Neutrophils % 66.1 Lymphocytes % 21.2 Monocytes % 7.5 Eosinophils % 4.0 Basophils % 1.0 Nucleated Red Blood 0.0 Cells % Immature 0.010 Granulocytes # Neutrophils # 2.7 Lymphocytes # 0.9 Monocytes # 0.3 Eosinophils # 0.2 Basophils # 0.0 Nucleated Red Blood 0.0 Cells # Sodium Level 138 Potassium Level 4.1 Chloride Level 109 Carbon Dioxide Level 24 Anion Gap 5 Blood Urea Nitrogen 22 H Creatinine 0.97 Est Glomerular > 60 Filtrat Rate mL/min Glucose Level 94 # Calcium Level 8.6 Total Bilirubin 0.4 Direct Bilirubin 0.00 Indirect Bilirubin 0.4 Aspartate Amino 14 L Transf (AST/SGOT) Alanine 12 L Aminotransferase (AL T/SGPT) Alkaline Phosphatase 91 Total Protein 5.9 L Albumin 2.8 L Globulin 3.10 Albumin/Globulin 0.90 Ratio Vancomycin Level 17.2 Trough Test 01/19/19 12:21 Bedside Glucose 85 Exam/Review of Systems Exam Vitals Vital Signs Date Temp Pulse Resp B/P (MAP) Pulse Ox O2 O2 Flow FiO2 Time Delivery Rate 01/19/19 98.3 73 17 155/73 99 Room Air 08:16 (100) Intake and Output 01/18/19 01/18/19 01/19/19 1515:00 23:00 07:00 IntakeIntake Total 350 ml 1450 ml 1100 ml OutputOutput Total 100 ml 1000 ml BalanceBalance 350 ml 1350 ml 100 ml Results Results 24hrs Laboratory Tests Test 01/18/19 17:23 01/18/19 19:59 01/19/19 07:27 01/19/19 07:49 Bedside Glucose 81 135 87 White Blood Count 4.0 #L Red Blood Count 3.05 L Hemoglobin 7.9 L Hematocrit 26.0 L Mean Corpuscular 85.2 Volume Mean Corpuscular 25.9 L Hemoglobin Mean Corpuscular 30.4 L Hemoglobin Concent Red Cell 15.1 H Distribution Width Platelet Count 339 Mean Platelet Volume 9.8 Immature 0.200 Granulocytes % Neutrophils % 66.1 Lymphocytes % 21.2 Monocytes % 7.5 Eosinophils % 4.0 Basophils % 1.0 Nucleated Red Blood 0.0 Cells % Immature 0.010 Granulocytes # Neutrophils # 2.7 Lymphocytes # 0.9 Monocytes # 0.3 Eosinophils # 0.2 Basophils # 0.0 Nucleated Red Blood 0.0 Cells # Sodium Level 138 Potassium Level 4.1 Chloride Level 109 Carbon Dioxide Level 24 Anion Gap 5 Blood Urea Nitrogen 22 H Creatinine 0.97 Est Glomerular > 60 Filtrat Rate mL/min Glucose Level 94 # Calcium Level 8.6 Total Bilirubin 0.4 Direct Bilirubin 0.00 Indirect Bilirubin 0.4 Aspartate Amino 14 L Transf (AST/SGOT) Alanine 12 L Aminotransferase (AL T/SGPT) Alkaline Phosphatase 91 Total Protein 5.9 L Albumin 2.8 L Globulin 3.10 Albumin/Globulin 0.90 Ratio Vancomycin Level 17.2 Trough Test 01/19/19 12:21 Bedside Glucose 85 Medications Medication Current Medications Famotidine (Pepcid) 20 mg Q12 PO Last administered on 01/19/19 08:06; Admin Dose 20 MG; Start 01/18/19 at 09:00 Acetaminophen/ Hydrocodone Bitart ([place] (10/325)) 1 tab Q6 PO Last administered on 01/19/19 06:28; Admin Dose 1 TAB; Start 01/18/19 at 06:00 Metoprolol Tartrate (Lopressor) 50 mg BID PO Last administered on 01/19/19at 08:06; Admin Dose 50 MG; Start 01/18/19 at 09:00 IV Flush (NS 3 ml) 3 ml PER PROTOCOL IV ; Start 01/18/19 at 00:30 Ondansetron HCl (Zofran Inj) 4 mg Q6H PRN IV NAUSEA/VOMITING; Start 01/18/19 at 00:30 Acetaminophen (Tylenol Tab) 650 mg Q6H PRN PO .PAIN 1-3 OR TEMP; Start 01/18/19 at 00:30 Morphine Sulfate (morphine) 2 mg Q4H PRN IV .SEVERE PAIN 7-10 Last administered on 01/19/19at 08:04; Admin Dose 2 MG; Start 01/18/19 at 00:30 Hydralazine HCl (Apresoline) 10 mg Q4H PRN IV ELEVATED BLOOD PRESSURE Last administered on 01/19/19 04:29; Admin Dose 10 MG; Start 01/18/19 at 00:30 Diagnostic Test (Pha) (Accu-Chek) 1 ea 02 XX ; Start 01/18/19 at 02:00 Insulin Aspart (Novolog Insulin Pen) NOVOLOG *MILD* ALGORITHM WITH MEALS BEDTIME SC Last administered on 01/18/19at 12:16; Admin Dose 2 UNIT; Start 01/18/19 at 08:00 Miscellaneous Information 1 ea NOTE XX ; Start 01/18/19 at 01:30 Glucose (Glutose) 15 gm Q15M PRN PO DECREASED GLUCOSE; Start 01/18/19 at 01:30 Glucose (Glutose) 22.5 gm Q15M PRN PO DECREASED GLUCOSE; Start 01/18/19 at 01:30 Dextrose (D50w Syringe) 25 ml Q15M PRN IV DECREASED GLUCOSE; Start 01/18/19 at 01:30 Dextrose (D50w Syringe) 50 ml Q15M PRN IV DECREASED GLUCOSE; Start 01/18/19 at 01:30 Glucagon (Glucagen) 1 mg Q15M PRN IM DECREASED GLUCOSE; Start 01/18/19 at 01:30 Glucose (Glutose) 15 gm Q15M PRN BUCCAL DECREASED GLUCOSE; Start 01/18/19 at 01:30 Miscellaneous Information (Pending Santyl Order For Wound Care) This patient koch... PRN PRN XX WOUND CARE; Start 01/18/19 at 06:00 Collagenase (Santyl) 1 applic DAILY TOP Last administered on 01/19/19at 08:13; Admin Dose 1 APPLIC; Start 01/18/19 at 09:00 Collagenase (Santyl) 1 applic PRN PRN TOP SOIL; Start 01/18/19 at 06:30 Vancomycin HCl (Vanco Iv Per Pharmacy) VANCOMYCIN PER PHARMACY PER PROTOCOL XX ; Start 01/18/19 at 08:00 Piperacillin Sod/ Tazobactam Sod 100 ml @ 200 mls/hr Q6 IVPB Last administered on 01/19/19at 11:08; Admin Dose 200 MLS/HR; Start 01/18/19 at 08:00 Heparin Sodium (Porcine) (Heparin (5000 Units/1ml)) 5,000 unit BID SC Last administered on 01/19/19 08:10; Admin Dose 5,000 UNIT; Start 01/18/19 at 09:00 Lisinopril (Zestril) 40 mg DAILY PO Last administered on 01/19/19 08:07; Admin Dose 40 MG; Start 01/19/19 at 09:00 Insulin Glargine (Lantus) 20 units DAILY@0800 SC Last administered on 01/19/19at 08:10; Admin Dose 20 UNITS; Start 01/18/19 at 13:00 Insulin Aspart (Novolog Insulin Pen) 5 unit WITH MEALS SC Last administered on 01/19/19 08:11; Admin Dose 5 UNIT; Start 01/18/19 at 17:35 Ferric Sodium Gluconate Complex 125 mg/Sodium Chloride 100 ml @ 100 mls/hr DAILY@1300 IVPB Last administered on 01/19/19at 12:17; Admin Dose 100 MLS/HR; Start 01/18/19 at 13:00; Stop 01/20/19 at 13:59 Sodium Hypochlorite (Dakins Diluted (/40)) 1 applic DAILY TP Last administered on 01/19/19at 08:14; Admin Dose 1 APPLIC; Start 01/18/19 at 14:00 Vancomycin HCl 100 ml @ 100 mls/hr Q12H IVPB ; Start 01/19/19 at 21:00 SAMUEL CAMPOS NP January 19, 2019 14:30
[2019-01-19] MEDS: metFORMIN 500 MG TAB PO SCH (17:33)
[2019-01-19 20:00] VITALS: BP 153/70; PULSE 75; RESP 19
[2019-01-19] MEDS: VANCOMYCIN 500 MG (PMX) 100 ML IVPB SCH (22:19)
[2019-01-19] MEDS: GABAPENTIN 100 MG CAP PO SCH (22:22)
[2019-01-20] MEDS: PIPER-TAZO 3.375 GM IV (PMX) 100 ML IVPB SCH ×4 (00:49→17:38)
[2019-01-20 02:00] VITALS: BP 166/85; PULSE 85; RESP 18
[2019-01-20] MEDS: ACCU-CHEK XX SCH (02:00)
[2019-01-20] MEDS: HYDROCODONE/APAP (10/325) TAB PO SCH ×4 (06:00→17:38)
[2019-01-20 08:00] VITALS: BP 207/98; PULSE 74; RESP 18
[2019-01-20] MEDS ORDERED: INSULIN GLARGINE [LANTus] (100 UNITS/ML) SYG SC SCH (08:00)
[2019-01-20] MEDS: INSULIN ASPART [NOVOLOG] 3 ML PEN SC SCH ×4 (08:00→21:00)
[2019-01-20] MEDS: metFORMIN 500 MG TAB PO SCH ×2 (08:46→21:27)
[2019-01-20] MEDS: LISINOPRIL 20 MG TAB PO SCH (08:47)
[2019-01-20] MEDS: HEPARIN 5,000 UNIT/1 ML VIAL SC SCH ×3 (08:47→21:30)
[2019-01-20] MEDS: DAKINS 0.0125%(1/40) 473 ML SOLUTION TP SCH (08:48)
[2019-01-20] MEDS: GABAPENTIN 100 MG CAP PO SCH ×3 (08:48→21:27)
[2019-01-20] MEDS: COLLAGENASE 5 GM (UD JAR) TOP SCH (08:48)
[2019-01-20] MEDS: FAMOTIDINE 20 MG TAB PO SCH ×2 (08:48→21:27)
[2019-01-20] MEDS: METOPROLOL 50 MG TAB PO SCH (08:48)
[2019-01-20] MEDS: VANCOMYCIN 500 MG (PMX) 100 ML IVPB SCH ×2 (10:01→21:26)
[2019-01-20] MEDS ORDERED: METOPROLOL 25 MG TAB PO ONE (10:30)
[2019-01-20] MEDS ORDERED: metFORMIN 500 MG TAB PO ONE (10:30)
[2019-01-20 10:33] VITALS: BP 203/93; PULSE 78; RESP 20
[2019-01-20] MEDS: hydrALAzine 20 MG INJ IV PRN (10:33)
--- NOTE | 2019-01-20 10:45 | PN ---
Date/Time of Note Date/Time of Note DATE: 01/20/19 TIME: 10:28 Assessment/Plan VTE Prophylaxis Risk score (from Ns)>0 risk: 4 SCD applied (from Ns): No SCD contraindicated: other Pharmacological prophylaxis: heparin Lines/Catheters IV [facility] Saline Lock Assessment/Plan Hospital Course SUBJECTIVE: Patient with bladder/bowel incontinence. OBJECTIVE: Vital signs-see below PHYSICAL EXAM: Constitutional: Adequately built,not in acute distress. HEENT: Head atraumatic and normocephalic. Eyes: Extraocular muscles intact. Anicteric sclerae. Pupils equal bilaterally, reactive to light. NECK: Supple without lymph node. CHEST: Clear and good breath sounds equally. No wheezing. No rhonchi. HEART: S1, S2. Regular rate and rhythm. ABDOMEN: Soft/non tender with no rebound tenderness. Bowel sounds were present. EXTREMITIES: Crow.LEs w/multiple dry wounds. +Fungi nails.Generalized weakness/mild contractures x4 extremities. Incontinent bowel/bladder. No cyanosis, clubbing or edema. NEUROLOGIC: Alert and oriented x3. No focal deficit. No sensory deficit. PSYCHOSOCIAL: No signs of depression. INTEGUMENTARY: No open wounds. ASSESSMENT AND PLAN:63 yo wheelchair bounded M w/dm2/dm ulcers/decubs admitted w/worsening crow LEs wouds .. Bilateral LE diabetic ulcers -Not causing sepsis -s/p bedside excisional debridement -X-ray noted. Follow-up MRI of left foot to rule out osteomyelitis -Wound care -Wound culture with MRSA -Continue antimicrobials.-If no osteomyelitis appreciated, likely can be transitioned to rifampin plus Levaquin combination. DMII -Patient refused insulin regimen. A1c 7.1 and will continue patient on metformin 1000 mg twice daily regimen. -Stable glycemic trends -Diabetic education Peripheral neuropathy -On gabapentin Sacral decubitus ulcers -Continue wound care Onychomycosis -s/p nail debridement -Clotrimazole cream Hypertension -Stable. Continue/beta-blockers Anemia w/ iron deficiency+ chronic inflammation -On iron -Monitor H&H closely and will transfuse if needed. Debility w/contractures -Medical Records unavailable - patient with lack of social support system. He would benefit from ECF. However, patient does not want to be discharged to a shelter. At this time, rn case management to work on arranging regular home health nurse to check on patient with assisting medication/wound care. PT eval/treatment Bowel/bladder incontinence -Chanel insertion. Bowel regimen DVT prophylaxis: Heparin Disposition: Continue wound care. Follow-up MRI, if no osteomyelitis appreciated, transition antibiotics to oral Levaquin plus rifampin regimen for 10 more days with discharge planning shelter versus transitional care center with home health. Patient was seen in collaboration with Dr. Cleveland Result Diagram: 01/19/1972601/[id number]/19726 Results 24hrs Laboratory Tests Test 01/19/19 12:21 01/19/19 22:16 01/20/19 08:42 01/20/19 09:49 Bedside Glucose 85 76 125 White Blood Count Pending Red Blood Count Pending Hemoglobin Pending Hematocrit Pending Mean Corpuscular Pending Volume Mean Corpuscular Pending Hemoglobin Mean Corpuscular Pending Hemoglobin Concent Red Cell Pending Distribution Width Platelet Count Pending Mean Platelet Volume Pending Exam/Review of Systems Exam Vitals Vital Signs Date Temp Pulse Resp B/P (MAP) Pulse Ox O2 O2 Flow FiO2 Time Delivery Rate 01/20/19 98.9 74 18 207/98 99 Room Air 08:00 (134) Intake and Output 01/19/19 01/19/19 01/20/19 1515:00 23:00 07:00 IntakeIntake Total 450 ml 500 ml 680 ml OutputOutput Total 800 ml 900 ml BalanceBalance 450 ml -300 ml -220 ml Results Results 24hrs Laboratory Tests Test 01/19/19 12:21 01/19/19 22:16 01/20/19 08:42 01/20/19 09:49 Bedside Glucose 85 76 125 White Blood Count Pending Red Blood Count Pending Hemoglobin Pending Hematocrit Pending Mean Corpuscular Pending Volume Mean Corpuscular Pending Hemoglobin Mean Corpuscular Pending Hemoglobin Concent Red Cell Pending Distribution Width Platelet Count Pending Mean Platelet Volume Pending Medications Medication Current Medications Famotidine (Pepcid) 20 mg Q12 PO Last administered on 01/20/19at 08:48; Admin Dose 20 MG; Start 01/18/19 at 09:00 Acetaminophen/ Hydrocodone Bitart ([place] (10/325)) 1 tab Q6 PO Last administered on 01/19/19at 06:28; Admin Dose 1 TAB; Start 01/18/19 at 06:00 Metoprolol Tartrate (Lopressor) 50 mg BID PO Last administered on 01/20/19at 08:48; Admin Dose 50 MG; Start 01/18/19 at 09:00 IV Flush (NS 3 ml) 3 ml PER PROTOCOL IV ; Start 01/18/19 at 00:30 Ondansetron HCl (Zofran Inj) 4 mg Q6H PRN IV NAUSEA/VOMITING; Start 01/18/19 at 00:30 Acetaminophen (Tylenol Tab) 650 mg Q6H PRN PO .PAIN 1-3 OR TEMP; Start 01/18/19 at 00:30 Morphine Sulfate (morphine) 2 mg Q4H PRN IV .SEVERE PAIN 7-10 Last administered on 01/19/19at 08:04; Admin Dose 2 MG; Start 01/18/19 at 00:30 Hydralazine HCl (Apresoline) 10 mg Q4H PRN IV ELEVATED BLOOD PRESSURE Last administered on 01/19/19at 04:29; Admin Dose 10 MG; Start 01/18/19 at 00:30 Diagnostic Test (Pha) (Accu-Chek) 1 ea 02 XX ; Start 01/18/19 at 02:00 Insulin Aspart (Novolog Insulin Pen) NOVOLOG *MILD* ALGORITHM WITH MEALS BEDTIME SC Last administered on 01/18/19at 12:16; Admin Dose 2 UNIT; Start 01/18/19 at 08:00 Miscellaneous Information 1 ea NOTE XX ; Start 01/18/19 at 01:30 Glucose (Glutose) 15 gm Q15M PRN PO DECREASED GLUCOSE; Start 01/18/19 at 01:30 Glucose (Glutose) 22.5 gm Q15M PRN PO DECREASED GLUCOSE; Start 01/18/19 at 01:30 Dextrose (D50w Syringe) 25 ml Q15M PRN IV DECREASED GLUCOSE; Start 01/18/19 at 01:30 Dextrose (D50w Syringe) 50 ml Q15M PRN IV DECREASED GLUCOSE; Start 01/18/19 at 01:30 Glucagon (Glucagen) 1 mg Q15M PRN IM DECREASED GLUCOSE; Start 01/18/19 at 01:30 Glucose (Glutose) 15 gm Q15M PRN BUCCAL DECREASED GLUCOSE; Start 01/18/19 at 01:30 Miscellaneous Information (Pending Santyl Order For Wound Care) This patient koch... PRN PRN XX WOUND CARE; Start 01/18/19 at 06:00 Collagenase (Santyl) 1 applic DAILY TOP Last administered on 01/20/19 08:48; Admin Dose 1 APPLIC; Start 01/18/19 at 09:00 Collagenase (Santyl) 1 applic PRN PRN TOP SOIL; Start 01/18/19 at 06:30 Vancomycin HCl (Vanco Iv Per Pharmacy) VANCOMYCIN PER PHARMACY PER PROTOCOL XX ; Start 01/18/19 at 08:00 Piperacillin Sod/ Tazobactam Sod 100 ml @ 200 mls/hr Q6 IVPB Last administered on 01/20/19 06:36; Admin Dose 200 MLS/HR; Start 01/18/19 at 08:00 Heparin Sodium (Porcine) (Heparin (5000 Units/1ml)) 5,000 unit BID SC Last administered on 01/20/19 08:47; Admin Dose 5,000 UNIT; Start 01/18/19 at 09:00 Lisinopril (Zestril) 40 mg DAILY PO Last administered on 01/20/19 08:47; Admin Dose 40 MG; Start 01/19/19 at 09:00 Ferric Sodium Gluconate Complex 125 mg/Sodium Chloride 100 ml @ 100 mls/hr DAILY@1300 IVPB Last administered on 01/19/19 12:17; Admin Dose 100 MLS/HR; Start 01/18/19 at 13:00; Stop 01/20/19 at 13:59 Sodium Hypochlorite (Dakins Diluted (40)) 1 applic DAILY TP Last administered on 01/20/19 08:48; Admin Dose 1 APPLIC; Start 01/18/19 at 14:00 Vancomycin HCl 100 ml @ 100 mls/hr Q12H IVPB Last administered on 01/20/19at 10:01; Admin Dose 100 MLS/HR; Start 01/19/19 at 21:00 Gabapentin (Neurontin) 100 mg TID PO Last administered on 01/20/19 08:48; Admin Dose 100 MG; Start 01/19/19 at 21:00 Insulin Glargine (Lantus) 10 units DAILY@0800 SC ; Start 01/20/19 at 08:00 Metformin HCl (Glucophage) 500 mg BID WITH MEALS PO Last administered on 01/20/19at 08:46; Admin Dose 500 MG; Start 01/19/19 at 18:05 SAMUEL CAMPOS NP January 20, 2019 10:45
[2019-01-20 11:11] VITALS: BP 194/92; PULSE 84
[2019-01-20] MEDS: SOD FERRIC GLUC COMPLX 125 MG in SOD CHLORIDE 0.9% 100 ML IVPB SCH (12:54)
[2019-01-20 14:00] VITALS: BP 178/86; PULSE 81; RESP 18
[2019-01-20] MEDS: BALSAM PERU/CASTOR OIL 60 GM TUBE TOP SCH ×2 (17:38→21:31)
[2019-01-20 20:18] VITALS: BP 167/79; PULSE 77; RESP 20
[2019-01-20] MEDS: METOPROLOL 25 MG TAB PO SCH (21:29)
[2019-01-21] VITALS (7 sets, daily range): BP systolic 150–196; BP diastolic 71–93; PULSE 62–90; RESP 16–18
[2019-01-21] MEDS: HYDROCODONE/APAP (10/325) TAB PO SCH ×5 (00:27→23:51)
[2019-01-21] MEDS: PIPER-TAZO 3.375 GM IV (PMX) 100 ML IVPB SCH ×3 (00:27→13:10)
[2019-01-21] MEDS: ACCU-CHEK XX SCH (02:00)
[2019-01-21] MEDS: INSULIN ASPART [NOVOLOG] 3 ML PEN SC SCH ×4 (08:00→21:00)
[2019-01-21] MEDS: metFORMIN 500 MG TAB PO SCH ×2 (08:08→17:36)
[2019-01-21] MEDS: GABAPENTIN 100 MG CAP PO SCH ×3 (08:09→21:59)
[2019-01-21] MEDS: METOPROLOL 25 MG TAB PO SCH ×2 (08:09→22:00)
[2019-01-21] MEDS: FAMOTIDINE 20 MG TAB PO SCH ×2 (08:09→22:00)
[2019-01-21] MEDS: BALSAM PERU/CASTOR OIL 60 GM TUBE TOP SCH ×2 (08:10→22:01)
[2019-01-21] MEDS: LISINOPRIL 20 MG TAB PO SCH (08:10)
[2019-01-21] MEDS: COLLAGENASE 5 GM (UD JAR) TOP SCH (08:10)
[2019-01-21] MEDS: DAKINS 0.0125%(1/40) 473 ML SOLUTION TP SCH (08:11)
[2019-01-21] MEDS: HEPARIN 5,000 UNIT/1 ML VIAL SC SCH ×2 (08:16→21:00)
--- NOTE | 2019-01-21 10:31 | PN ---
Date/Time of Note Date/Time of Note DATE: 01/21/19 TIME: 10:17 Assessment/Plan VTE Prophylaxis Risk score (from Ns)>0 risk: 4 SCD applied (from Ns): No SCD contraindicated: other Pharmacological prophylaxis: heparin Lines/Catheters IV [facility]from [facility] Saline Lock Urinary Cath still in place: Yes Reason Cath still needed: other (indicate) Assessment/Plan Hospital Course SUBJECTIVE: No acute overnight episodes OBJECTIVE: Vital signs-see below PHYSICAL EXAM: Constitutional: Adequately built,not in acute distress. HEENT: Head atraumatic and normocephalic. Eyes: Extraocular muscles intact. Anicteric sclerae. Pupils equal bilaterally, reactive to light. NECK: Supple without lymph node. CHEST: Clear and good breath sounds equally. No wheezing. No rhonchi. HEART: S1, S2. Regular rate and rhythm. ABDOMEN: Soft/non tender with no rebound tenderness. Bowel sounds were present. EXTREMITIES: Crow.LEs w/multiple dry wounds. +Fungi nails.Generalized weakness/mild contractures x4 extremities. Incontinent bowel/bladder. No cy anosis, clubbing or edema. NEUROLOGIC: Alert and oriented x3. No focal deficit. No sensory deficit. PSYCHOSOCIAL: No signs of depression. INTEGUMENTARY: No open wounds. ASSESSMENT AND PLAN:63 yo wheelchair bounded M w/dm2/dm ulcers/decubs admitted w/worsening crow LEs wouds .. Bilateral LE diabetic ulcers,-Wound culture +MRSA -Not causing sepsis -s/p bedside excisional debridement -Wound care -Continue antimicrobials. Osteomyelitis involving left 5th toe -PICC line -Abxx6 weeks -ID to manage abx DMII - A1c 7.1 -Stable glycemic trends -on oral agent alone -Diabetic education Peripheral neuropathy -On gabapentin Sacral decubitus ulcers -Continue wound care Onychomycosis -s/p nail debridement -Clotrimazole cream Hypertension -Stable. Continue/beta-blockers Anemia w/ iron deficiency+ chronic inflammation -On iron -Monitor H&H closely and will transfuse if needed. Debility w/contractures -Medical Records unavailable - patient with lack of social support system. He would benefit from ECF. However, patient does not want to be discharged to a [place] [facility] facility. At this time, binder caser to work on arranging regular home health nurse to check on patient with assisting medication/wound care. PT eval/treatment Bowel/bladder incontinence -Chanel insertion. Bowel regimen DVT prophylaxis: Heparin Disposition: Follow-up podiatry recommendations. DC planning on IV antibiotic plus or minus oral agents x6 weeks. She refused [place] [facility] and wants to go back to his transitional care unit. In the situation, he might also need home health assistance for IV antimicrobials and home health safety. Patient was seen in collaboration with Dr. Cleveland Result Diagram: 01/21/19 0822 01/21/19 0822 Results 24hrs Laboratory Tests Test 01/20/19 11:28 01/20/19 12:06 01/20/19 17:35 01/20/19 21:25 Sodium Level 141 Potassium Level 4.1 # Chloride Level 109 Carbon Dioxide Level 24 Anion Gap 8 Blood Urea Nitrogen 21 H Creatinine 1.00 Est Glomerular > 60 Filtrat Rate mL/min Glucose Level 144 Calcium Level 8.7 Bedside Glucose 152 149 146 Test 01/21/19 08:06 01/21/19 08:22 Bedside Glucose 130 White Blood Count 4.1 L Red Blood Count 3.25 L Hemoglobin 8.5 L Hematocrit 28.3 L Mean Corpuscular 87.1 Volume Mean Corpuscular 26.2 L Hemoglobin Mean Corpuscular 30.0 L Hemoglobin Concent Red Cell 15.2 H Distribution Width Platelet Count 383 Mean Platelet Volume 10.2 Immature 0.200 Granulocytes % Neutrophils % 63.7 Lymphocytes % 25.4 Monocytes % 6.8 Eosinophils % 2.9 Basophils % 1.0 Nucleated Red Blood 0.0 Cells % Immature 0.010 Granulocytes # Neutrophils # 2.6 Lymphocytes # 1.1 Monocytes # 0.3 Eosinophils # 0.1 Basophils # 0.0 Nucleated Red Blood 0.0 Cells # Sodium Level 142 Potassium Level 4.2 Chloride Level 110 Carbon Dioxide Level 25 Anion Gap 7 Blood Urea Nitrogen 21 H Creatinine 1.11 Est Glomerular > 60 Filtrat Rate mL/min Glucose Level 120 Calcium Level 8.8 Total Bilirubin 0.3 Direct Bilirubin 0.00 Indirect Bilirubin 0.3 Aspartate Amino 14 #L Transf (AST/SGOT) Alanine 10 L Aminotransferase (AL T/SGPT) Alkaline Phosphatase 88 Total Protein 6.4 # Albumin 3.1 L Globulin 3.30 H Albumin/Globulin 0.93 Ratio Vancomycin Level 18.3 Trough Exam/Review of Systems Exam Vitals Vital Signs Date Temp Pulse Resp B/P (MAP) Pulse Ox O2 O2 Flow FiO2 Time Delivery Rate 01/21/19 98.2 68 18 196/91 99 Room Air 07:30 (126) Intake and Output 01/20/19 01/20/19 01/21/19 1515:00 23:00 07:00 IntakeIntake Total 400 ml 100 ml OutputOutput Total 200 ml 610 ml 900 ml BalanceBalance 200 ml -510 ml -900 ml Results Results 24hrs Laboratory Tests Test 01/20/19 11:28 01/20/19 12:06 01/20/19 17:35 01/20/19 21:25 Sodium Level 141 Potassium Level 4.1 # Chloride Level 109 Carbon Dioxide Level 24 Anion Gap 8 Blood Urea Nitrogen 21 H Creatinine 1.00 Est Glomerular > 60 Filtrat Rate mL/min Glucose Level 144 Calcium Level 8.7 Bedside Glucose 152 149 146 Test 01/21/19 08:06 01/21/19 08:22 Bedside Glucose 130 White Blood Count 4.1 L Red Blood Count 3.25 L Hemoglobin 8.5 L Hematocrit 28.3 L Mean Corpuscular 87.1 Volume Mean Corpuscular 26.2 L Hemoglobin Mean Corpuscular 30.0 L Hemoglobin Concent Red Cell 15.2 H Distribution Width Platelet Count 383 Mean Platelet Volume 10.2 Immature 0.200 Granulocytes % Neutrophils % 63.7 Lymphocytes % 25.4 Monocytes % 6.8 Eosinophils % 2.9 Basophils % 1.0 Nucleated Red Blood 0.0 Cells % Immature 0.010 Granulocytes # Neutrophils # 2.6 Lymphocytes # 1.1 Monocytes # 0.3 Eosinophils # 0.1 Basophils # 0.0 Nucleated Red Blood 0.0 Cells # Sodium Level 142 Potassium Level 4.2 Chloride Level 110 Carbon Dioxide Level 25 Anion Gap 7 Blood Urea Nitrogen 21 H Creatinine 1.11 Est Glomerular > 60 Filtrat Rate mL/min Glucose Level 120 Calcium Level 8.8 Total Bilirubin 0.3 Direct Bilirubin 0.00 Indirect Bilirubin 0.3 Aspartate Amino 14 #L Transf (AST/SGOT) Alanine 10 L Aminotransferase (AL T/SGPT) Alkaline Phosphatase 88 Total Protein 6.4 # Albumin 3.1 L Globulin 3.30 H Albumin/Globulin 0.93 Ratio Vancomycin Level 18.3 Trough Medications Medication Current Medications Famotidine (Pepcid) 20 mg Q12 PO Last administered on 01/21/19at 08:09; Admin Dose 20 MG; Start 01/18/19 at 09:00 Acetaminophen/ Hydrocodone Bitart ([place] (10/325)) 1 tab Q6 PO Last administered on 01/21/19at 05:46; Admin Dose 1 TAB; Start 01/18/19 at 06:00 IV Flush (NS 3 ml) 3 ml PER PROTOCOL IV ; Start 01/18/19 at 00:30 Ondansetron HCl (Zofran Inj) 4 mg Q6H PRN IV NAUSEA/VOMITING; Start 01/18/19 at 00:30 Acetaminophen (Tylenol Tab) 650 mg Q6H PRN PO .PAIN 1-3 OR TEMP; Start 01/18/19 at 00:30 Morphine Sulfate (morphine) 2 mg Q4H PRN IV .SEVERE PAIN 7-10 Last administered on 01/19/19at 08:04; Admin Dose 2 MG; Start 01/18/19 at 00:30 Hydralazine HCl (Apresoline) 10 mg Q4H PRN IV ELEVATED BLOOD PRESSURE Last adm inistered on 01/20/19at 10:33; Admin Dose 10 MG; Start 01/18/19 at 00:30 Diagnostic Test (Pha) (Accu-Chek) 1 ea 02 XX ; Start 01/18/19 at 02:00 Insulin Aspart (Novolog Insulin Pen) NOVOLOG *MILD* ALGORITHM WITH MEALS BEDTIME SC Last administered on 01/20/19at 12:12; Admin Dose 1 UNIT; Start 01/18/19 at 08:00 Miscellaneous Information 1 ea NOTE XX ; Start 01/18/19 at 01:30 Glucose (Glutose) 15 gm Q15M PRN PO DECREASED GLUCOSE; Start 01/18/19 at 01:30 Glucose (Glutose) 22.5 gm Q15M PRN PO DECREASED GLUCOSE; Start 01/18/19 at 01:30 Dextrose (D50w Syringe) 25 ml Q15M PRN IV DECREASED GLUCOSE; Start 01/18/19 at 01:30 Dextrose (D50w Syringe) 50 ml Q15M PRN IV DECREASED GLUCOSE; Start 01/18/19 at 01:30 Glucagon (Glucagen) 1 mg Q15M PRN IM DECREASED GLUCOSE; Start 01/18/19 at 01:30 Glucose (Glutose) 15 gm Q15M PRN BUCCAL DECREASED GLUCOSE; Start 01/18/19 at 01:30 Miscellaneous Information (Pending Santyl Order For Wound Care) This patient koch... PRN PRN XX WOUND CARE; Start 01/18/19 at 06:00 Collagenase (Santyl) 1 applic DAILY TOP Last administered on 01/21/19at 08:10; Admin Dose 1 APPLIC; Start 01/18/19 at 09:00 Collagenase (Santyl) 1 applic PRN PRN TOP SOIL; Start 01/18/19 at 06:30 Vancomycin HCl (Vanco Iv Per Pharmacy) VANCOMYCIN PER PHARMACY PER PROTOCOL XX ; Start 01/18/19 at 08:00 Piperacillin Sod/ Tazobactam Sod 100 ml @ 200 mls/hr Q6 IVPB Last administered on 01/21/19 05:46; Admin Dose 200 MLS/HR; Start 01/18/19 at 08:00 Heparin Sodium (Porcine) (Heparin (5000 Units/1ml)) 5,000 unit BID SC Last administered on 01/21/19 08:16; Admin Dose 5,000 UNIT; Start 01/18/19 at 09:00 Lisinopril (Zestril) 40 mg DAILY PO Last administered on 01/21/19 08:10; Admin Dose 40 MG; Start 01/19/19 at 09:00 Sodium Hypochlorite (Dakins Diluted ()) 1 applic DAILY TP Last administered on 01/21/19 08:11; Admin Dose 1 APPLIC; Start 01/18/19 at 14:00 Vancomycin HCl 100 ml @ 100 mls/hr Q12H IVPB Last administered on 01/20/19 21:26; Admin Dose 100 MLS/HR; Start 01/19/19 at 21:00 Gabapentin (Neurontin) 100 mg TID PO Last administered on 01/21/19 08:09; Admin Dose 100 MG; Start 01/19/19 at 21:00 Metformin HCl (Glucophage) 1,000 mg BID WITH MEALS PO Last administered on 01/21/19 08:08; Admin Dose 1,000 MG; Start 01/20/19 at 18:05 Metoprolol Tartrate (Lopressor) 75 mg BID PO Last administered on 01/21/19 08:09; Admin Dose 75 MG; Start 01/20/19 at 21:00 SAMUEL CAMPOS NP January 21, 2019 10:27
[2019-01-21] MEDS: VANCOMYCIN 500 MG (PMX) 100 ML IVPB SCH (12:12)
[2019-01-21] MEDS ORDERED: LIDOCAINE 1% (MPF) 5 ML VIAL SC ONE (13:00)
[2019-01-21] MEDS: hydrALAzine 20 MG INJ IV PRN (14:52)
--- NOTE | 2019-01-21 16:38 | CONS ---
DATE OF ADMISSION: 01/18/2019 DATE OF CONSULTATION: 01/21/2019 TYPE OF CONSULTATION: Infectious disease. REQUESTING PROVIDER: Priscilla Wan NP Thank you Priscilla for this consultation. HISTORY OF PRESENT ILLNESS: This is a chronically ill-appearing 63-year-old -[place] man with a history of diabetes, chronic bilateral lower extremity wounds, sacral decubitus. The patient was admitted with worsening bilateral lower extremity wounds. He is being seen by Dr. Skinner in podiatry consultation who did excisional debridement at bedside. The patient had an MRI of left foot that revealed osteomyelitis within the proximal half of the 5th metatarsal extending to the base with mild cortical irregularity along the lateral aspect and adjacent skin ulcer. Please see full report of MRI in the chart. He had an extremity arterial study that revealed monophasic waveforms below the knees bilaterally and monophasic waveform in the left popliteal artery. MICROBIOLOGY: Left foot wound culture grew Proteus mirabilis and MRSA. Sacral wound culture also grew MRSA, Proteus mirabilis, Klebsiella pneumoniae and Corynebacterium species. ANTIMICROBIALS: The patient was started on: 1. Vancomycin. 2. Zosyn. ALLERGIES: HE IS NOT ALLERGIC TO ANY ANTIBIOTICS. PHYSICAL EXAMINATION: GENERAL: Well-nourished, well-developed elderly -[place] man who is awake, in no distress. HEENT: Head is atraumatic, normocephalic. Sclerae are anicteric. Buccal mucosa is dry. NECK: Supple. CHEST: Rise symmetrical. Breath sounds diminished to bases. HEART: S1, S2. ABDOMEN: Soft. Bowel tones are present. EXTREMITIES: With bilateral lower extremities dressing intact. DIAGNOSTIC IMPRESSION: This is a 63-year-old man with numerous medical problems admitted with worsening lower extremity wounds and evidence of osteomyelitis of his left foot. Cultures are growing methicillin-resistant Staphylococcus aureus, Corynebacterium and Proteus mirabilis. The patient is currently on vancomycin and Zosyn. We will change Zosyn to Rocephin per sensitivities. Continue IV vancomycin. Consider placement of PICC line as patient will require six to eight weeks of IV antibiotics to treat MRSA osteomyelitis. Continue wound care per podiatry recommendations. Discussed with Dr. Lopes who is covering Dr. Olmos. Dictated By: CHANTALE RAMIREZ THERMAL INTELLIGENCE ANALYST for PATEL WILD/NTS Conf#: [id number] DID#: [id number] CC: MASOUD SOLANO DPM; RIAZ LAZAR MD; BAMBI GALO MD;*EndCC* MTDD
[2019-01-21] MEDS: CEFTRIAXONE 2 GM/50 ML (PMX) 50 ML IVPB SCH (17:37)
[2019-01-22] MEDS: ACCU-CHEK XX SCH (02:00)
[2019-01-22 02:37] VITALS: BP 167/79; PULSE 79; RESP 18
[2019-01-22] MEDS: HYDROCODONE/APAP (10/325) TAB PO SCH ×3 (06:00→17:29)
[2019-01-22 07:25] VITALS: BP 185/86; PULSE 78; RESP 18
[2019-01-22] MEDS: INSULIN ASPART [NOVOLOG] 3 ML PEN SC SCH ×4 (08:00→20:09)
[2019-01-22] MEDS: metFORMIN 500 MG TAB PO SCH ×2 (08:08→17:30)
[2019-01-22] MEDS: HEPARIN 5,000 UNIT/1 ML VIAL SC SCH ×2 (08:08→20:06)
[2019-01-22] MEDS: GABAPENTIN 100 MG CAP PO SCH ×3 (08:09→20:03)
[2019-01-22] MEDS: BALSAM PERU/CASTOR OIL 60 GM TUBE TOP SCH ×2 (08:09→21:00)
[2019-01-22] MEDS: COLLAGENASE 5 GM (UD JAR) TOP SCH (08:09)
[2019-01-22] MEDS: DAKINS 0.0125%(1/40) 473 ML SOLUTION TP SCH (08:09)
[2019-01-22] MEDS: FAMOTIDINE 20 MG TAB PO SCH ×2 (08:09→20:03)
[2019-01-22] MEDS: LISINOPRIL 20 MG TAB PO SCH (08:10)
[2019-01-22] MEDS: METOPROLOL 25 MG TAB PO SCH ×2 (08:10→20:03)
[2019-01-22] MEDS: VANCOMYCIN 750 MG (PMX) 250 ML IVPB SCH (10:46)
--- NOTE | 2019-01-22 12:24 | PN ---
Date/Time of Note Date/Time of Note DATE: 01/22/19 TIME: Assessment/Plan VTE Prophylaxis Risk score (from Ns)>0 risk: 3 SCD applied (from Ns): No SCD contraindicated: other Pharmacological prophylaxis: heparin Lines/Catheters IV C[facility]ter Type [facility]from [facility] Saline [facility] Urinary Cath still in place: Yes Reason Cath still needed: other (indicate) Assessment/Plan Hospital Course SUBJECTIVE: No acute overnight episodes OBJECTIVE: Vital signs-see below PHYSICAL EXAM: Constitutional: Adequately built,not in acute distress. HEENT: Head atraumatic and normocephalic. Eyes: Extraocular muscles intact. Anicteric sclerae. Pupils equal bilaterally, reactive to light. NECK: Supple without lymph node. CHEST: Clear and good breath sounds equally. No wheezing. No rhonchi. HEART: S1, S2. Regular rate and rhythm. ABDOMEN: Soft/non tender with no rebound tenderness. Bowel sounds were present. EXTREMITIES: Crow.LEs w/multiple dry wounds. +Fungi nails.Generalized weakness/mild contractures x4 extremities. Incontinent bowel/bladder. No cy anosis, clubbing or edema. NEUROLOGIC: Alert and oriented x3. No focal deficit. No sensory deficit. PSYCHOSOCIAL: No signs of depression. INTEGUMENTARY: No open wounds. ASSESSMENT AND PLAN:63 yo wheelchair bounded M w/dm2/dm ulcers/decubs admitted w/worsening crow LEs wouds .. Bilateral LE diabetic ulcers,-Wound culture +MRSA -Not causing sepsis -s/p bedside excisional debridement -Wound care -Continue antimicrobials. Osteomyelitis involving left 5th toe -PICC line -Abxx6 weeks -ID to manage abx DMII - A1c 7.1 -Stable glycemic trends -on oral agent alone -Diabetic education Peripheral neuropathy -On gabapentin Sacral decubitus ulcers -Continue wound care Onychomycosis -s/p nail debridement -Clotrimazole cream Hypertension -Stable. Continue/beta-blockers Anemia w/ iron deficiency+ chronic inflammation -On iron -Monitor H&H closely and will transfuse if needed. Debility w/contractures -Medical Records unavailable - patient with lack of social support system. He would benefit from ECF. However, patient does not want to be discharged to a custodial. At this time, upper caser to work on arranging regular home health nurse to check on patient with assisting medication/wound care. PT eval/treatment Bowel/bladder incontinence -Chanel insertion. 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 DC planning on IV antibiotic x6 weeks. pt refused custodial and wants to go back to his transitional care unit. He is also homeless. Case management/social work professor to assist with placem ent. Patient was seen in collaboration with Dr. Cleveland Result Diagram: 01/21/19 0822 01/21/19 0822 Results 24hrs Laboratory Tests Test 01/21/19 17:35 01/21/19 21:58 01/22/19 07:57 Bedside Glucose 140 128 145 Exam/Review of Systems Exam Vitals Vital Signs Date Temp Pulse Resp B/P (MAP) Pulse Ox O2 O2 Flow FiO2 Time Delivery Rate 01/22/19 98.2 78 18 185/86 97 Room Air 07:25 (119) Intake and Output 01/21/19 01/21/19 01/22/19 1515:00 23:00 07:00 IntakeIntake Total 200 ml 1030 ml OutputOutput Total 740 ml 800 ml BalanceBalance 200 ml 290 ml -800 ml Results Results 24hrs Laboratory Tests Test 01/21/19 17:35 01/21/19 21:58 01/22/19 07:57 Bedside Glucose 140 128 145 Medications Medication Current Medications Famotidine (Pepcid) 20 mg Q12 PO Last administered on 01/22/19at 08:09; Admin Dose 20 MG; Start 01/18/19 at 09:00 Acetaminophen/ Hydrocodone Bitart (Register (10/325)) 1 tab Q6 PO Last administered on 01/21/19at 17:36; Admin Dose 1 TAB; Start 01/18/19 at 06:00 IV Flush (NS 3 ml) 3 ml PER PROTOCOL IV ; Start 01/18/19 at 00:30 Ondansetron HCl (Zofran Inj) 4 mg Q6H PRN IV NAUSEA/VOMITING; Start 01/18/19 at 00:30 Acetaminophen (Tylenol Tab) 650 mg Q6H PRN PO .PAIN 1-3 OR TEMP; Start 01/18/19 at 00:30 Morphine Sulfate (morphine) 2 mg Q4H PRN IV .SEVERE PAIN 7-10 Last administered on 01/19/19at 08:04; Admin Dose 2 MG; Start 01/18/19 at 00:30 Hydralazine HCl (Apresoline) 10 mg Q4H PRN IV ELEVATED BLOOD PRESSURE Last administered on 01/21/19at 14:52; Admin Dose 10 MG; Start 01/18/19 at 00:30 Diagnostic Test (Pha) (Accu-Chek) 1 ea 02 XX ; Start 01/18/19 at 02:00 Insulin Aspart (Novolog Insulin Pen) NOVOLOG *MILD* ALGORITHM WITH MEALS BEDTIME SC Last administered on 01/20/19at 12:12; Admin Dose 1 UNIT; Start at 08:00 Miscellaneous Information 1 ea NOTE XX ; Start 01/18/19 at 01:30 Glucose (Glutose) 15 gm Q15M PRN PO DECREASED GLUCOSE; Start 01/18/19 at 01:30 Glucose (Glutose) 22.5 gm Q15M PRN PO DECREASED GLUCOSE; Start 01/18/19 at 01:30 Dextrose (D50w Syringe) 25 ml Q15M PRN IV DECREASED GLUCOSE; Start 01/18/19 at 01:30 Dextrose (D50w Syringe) 50 ml Q15M PRN IV DECREASED GLUCOSE; Start 01/18/19 at 01:30 Glucagon (Glucagen) 1 mg Q15M PRN IM DECREASED GLUCOSE; Start 01/18/19 at 01:30 Glucose (Glutose) 15 gm Q15M PRN BUCCAL DECREASED GLUCOSE; Start 01/18/19 at 01:30 Miscellaneous Information (Pending Santyl Order For Wound Care) This patient koch... PRN PRN XX WOUND CARE; Start 01/18/19 at 06:00 Collagenase (Santyl) 1 applic DAILY TOP Last administered on 01/21/19at 08:10; Admin Dose 1 APPLIC; Start 01/18/19 at 09:00 Collagenase (Santyl) 1 applic PRN PRN TOP SOIL; Start 01/18/19 at 06:30 Vancomycin HCl (Vanco Iv Per Pharmacy) VANCOMYCIN PER PHARMACY PER PROTOCOL XX ; Start 01/18/19 at 08:00 Heparin Sodium (Porcine) (Heparin (5000 Units/1ml)) 5,000 unit BID SC Last administered on 01/21/19at 08:16; Admin Dose 5,000 UNIT; Start 01/18/19 at 09:00 Lisinopril (Zestril) 40 mg DAILY PO Last administered on 01/22/19 08:10; Admin Dose 40 MG; Start 01/19/19 at 09:00 Sodium Hypochlorite (Dakins Diluted ()) 1 applic DAILY TP Last administered on 01/22/19 08:09; Admin Dose 1 APPLIC; Start 01/18/19 at 14:00 Gabapentin (Neurontin) 100 mg TID PO Last administered on 01/22/19 08:09; Admin Dose 100 MG; Start 01/19/19 at 21:00 Metformin HCl (Glucophage) 1,000 mg BID WITH MEALS PO Last administered on 01/22/19 08:08; Admin Dose 1,000 MG; Start 01/20/19 at 18:05 Metoprolol Tartrate (Lopressor) 75 mg BID PO Last administered on 01/22/19 08:10; Admin Dose 75 MG; Start 01/20/19 at 21:00 Vancomycin/Sodium Chloride 250 ml @ 125 mls/hr Q24H IVPB Last administered on 01/22/19 10:46; Admin Dose 125 MLS/HR; Start 01/22/19 at 10:00 Ceftriaxone Sodium 50 ml @ 100 mls/hr Q24H IVPB Last administered on 01/21/19 17:37; Admin Dose 100 MLS/HR; Start 01/21/19 at 16:00 Zinc Sulfate (Zinc Sulfate) 220 mg DAILY PO ; Start 01/22/19 at 11:30 Ascorbic Acid (Vitamin C) 500 mg DAILY PO ; Start 01/22/19 at 11:30 SAMUEL CAMPOS NP January 22, 2019 12:24
[2019-01-22] MEDS: ZINC SULFATE 220 MG CAP PO SCH (12:53)
[2019-01-22] MEDS: ASCORBIC ACID 500 MG TAB PO SCH (12:54)
[2019-01-22 14:00] VITALS: BP 170/67; PULSE 78; RESP 18
--- NOTE | 2019-01-22 15:28 | CONS ---
Assessment/Plan Assessment/Plan Hospital Course (Demo Recall) No acute events patient is awake feels good looks comfortable no fevers overnight status post PICC line ANTIMICROBIALS: The patient was started on: 1. Vancomycin. 2. Rocephin. ALLERGIES: HE IS NOT ALLERGIC TO ANY ANTIBIOTICS. PHYSICAL EXAMINATION: GENERAL: Well-nourished, well-developed elderly -Cypriot man who is awake, in no distress. HEENT: Head is atraumatic, normocephalic. Sclerae are anicteric. Buccal mucosa is dry. NECK: Supple. CHEST: Rise symmetrical. Breath sounds diminished to bases. HEART: S1, S2. ABDOMEN: Soft. Bowel tones are present. EXTREMITIES: With bilateral lower extremities dressing intact. Assessment: 1. Bilateral lower extremities diabetic ulcerations 2. Left foot osteomyelitis 3. Diabetes with diabetic neuropathy Plan: Patient remains stable, discharge arrangements in process, patient to continue on IV antibiotics for 8 weeks, monitor renal function closely Consultation Date/Type/Reason Admit Date/Time January 18, 2019 at 09:31 Initial Consult Date Type of Consult id Date/Time of Note DATE: 01/22/19 TIME: 15:28 Exam/Review of Systems Exam Vitals Vital Signs Date Temp Pulse Resp B/P (MAP) Pulse Ox O2 O2 Flow FiO2 Time Delivery Rate 01/22/19 98.2 78 18 185/86 97 Room Air 07:25 (119) Intake and Output 01/21/19 01/21/19 01/22/19 1515:00 23:00 07:00 IntakeIntake Total 200 ml 1030 ml OutputOutput Total 740 ml 800 ml BalanceBalance 200 ml 290 ml -800 ml Results Result Diagram: 01/21/19 0822 01/21/19 0822 Results 24hrs Laboratory Tests Test 01/21/19 17:35 01/21/19 21:58 01/22/19 07:57 01/22/19 12:44 Bedside Glucose 140 128 145 151 Medications Medication Current Medications Famotidine (Pepcid) 20 mg Q12 PO Last administered on 01/22/19at 08:09; Admin Dose 20 MG; Start 01/18/19 at 09:00 Acetaminophen/ Hydrocodone Bitart (Ruffin (10/325)) 1 tab Q6 PO Last administered on 01/22/19at 12:54; Admin Dose 1 TAB; Start 01/18/19 at 06:00 IV Flush (NS 3 ml) 3 ml PER PROTOCOL IV ; Start 01/18/19 at 00:30 Ondansetron HCl (Zofran Inj) 4 mg Q6H PRN IV NAUSEA/VOMITING; Start 01/18/19 at 00:30 Acetaminophen (Tylenol Tab) 650 mg Q6H PRN PO .PAIN 1-3 OR TEMP; Start 01/18/19 at 00:30 Morphine Sulfate (morphine) 2 mg Q4H PRN IV .SEVERE PAIN 7-10 Last administered on 01/19/19at 08:04; Admin Dose 2 MG; Start 01/18/19 at 00:30 Hydralazine HCl (Apresoline) 10 mg Q4H PRN IV ELEVATED BLOOD PRESSURE Last administered on 01/21/19at 14:52; Admin Dose 10 MG; Start 01/18/19 at 00:30 Diagnostic Test (Pha) (Accu-Chek) 1 ea 02 XX ; Start 01/18/19 at 02:00 Insulin Aspart (Novolog Insulin Pen) NOVOLOG *MILD* ALGORITHM WITH MEALS BEDTIME SC Last administered on 01/20/19at 12:12; Admin Dose 1 UNIT; Start 01/18/19 at 08:00 Miscellaneous Information 1 ea NOTE XX ; Start 01/18/19 at 01:30 Glucose (Glutose) 15 gm Q15M PRN PO DECREASED GLUCOSE; Start 01/18/19 at 01:30 Glucose (Glutose) 22.5 gm Q15M PRN PO DECREASED GLUCOSE; Start 01/18/19 at 01:30 Dextrose (D50w Syringe) 25 ml Q15M PRN IV DECREASED GLUCOSE; Start 01/18/19 at 01:30 Dextrose (D50w Syringe) 50 ml Q15M PRN IV DECREASED GLUCOSE; Start 01/18/19 at 01:30 Glucagon (Glucagen) 1 mg Q15M PRN IM DECREASED GLUCOSE; Start 01/18/19 at 01:30 Glucose (Glutose) 15 gm Q15M PRN BUCCAL DECREASED GLUCOSE; Start 01/18/19 at 01:30 Miscellaneous Information (Pending Santyl Order For Wound Care) This patient koch... PRN PRN XX WOUND CARE; Start 01/18/19 at 06:00 Collagenase (Santyl) 1 applic DAILY TOP Last administered on 5/21/19at 08:10; Admin Dose 1 APPLIC; Start 01/18/19 at 09:00 Collagenase (Santyl) 1 applic PRN PRN TOP SOIL; Start 01/18/19 at 06:30 Vancomycin HCl (Vanco Iv Per Pharmacy) VANCOMYCIN PER PHARMACY PER PROTOCOL XX ; Start 01/18/19 at 08:00 Heparin Sodium (Porcine) (Heparin (5000 Units/1ml)) 5,000 unit BID SC Last administered on 01/21/19 08:16; Admin Dose 5,000 UNIT; Start 01/18/19 at 09:00 Lisinopril (Zestril) 40 mg DAILY PO Last administered on 01/22/19 08:10; Admin Dose 40 MG; Start 01/19/19 at 09:00 Sodium Hypochlorite (Dakins Diluted ()) 1 applic DAILY TP Last administered on 01/22/19 08:09; Admin Dose 1 APPLIC; Start 01/18/19 at 14:00 Gabapentin (Neurontin) 100 mg TID PO Last administered on 01/22/19 12:53; Admin Dose 100 MG; Start 01/19/19 at 21:00 Metformin HCl (Glucophage) 1,000 mg BID WITH MEALS PO Last administered on 01/22/19 08:08; Admin Dose 1,000 MG; Start 01/20/19 at 18:05 Metoprolol Tartrate (Lopressor) 75 mg BID PO Last administered on 01/22/19 08:10; Admin Dose 75 MG; Start 01/20/19 at 21:00 Vancomycin/Sodium Chloride 250 ml @ 125 mls/hr Q24H IVPB Last administered on 01/22/19 10:46; Admin Dose 125 MLS/HR; Start 01/22/19 at 10:00 Ceftriaxone Sodium 50 ml @ 100 mls/hr Q24H IVPB Last administered on 01/21/19 17:37; Admin Dose 100 MLS/HR; Start 01/21/19 at 16:00 Zinc Sulfate (Zinc Sulfate) 220 mg DAILY PO Last administered on 01/22/19 12:53; Admin Dose 220 MG; Start 01/22/19 at 11:30 Ascorbic Acid (Vitamin C) 500 mg DAILY PO Last administered on 01/22/19 12:54; Admin Dose 500 MG; Start 01/22/19 at 11:30 CHANTALE RAMIREZ NP January 22, 2019 15:28
[2019-01-22] MEDS: CEFTRIAXONE 2 GM/50 ML (PMX) 50 ML IVPB SCH (17:29)
--- NOTE | 2019-01-22 19:37 | CONS ---
Assessment/Plan Assessment/Plan Assessment/Plan (Daily) Diabetic ulcers b/l lower extremities Left 3rd metatarsal chronic fracture Left foot osteomyelitis DM2 with peripheral neuropathy Onychomycosis Tinea Pedis PAD Debility Nicotine dependence Hx of drug abuse Plan Reviewed X-ray and MRI findings and agree with PICC line IV abx for 6 weeks. Recommend daily dressing changes with betadine 4x4 gauze, kerlix and stefano wrap. Offload heels with pillows. Discussed smoking cessation with patient. Patient wants to return to his transition home. No surgical plans at this time. Recommend outpatient follow up in the wound care clinic of [facility]. Consultation Date/Type/Reason Admit Date/Time January 18, 2019 at 09:31 Initial Consult Date Date/Time of Note DATE: 01/22/19 TIME: 19:36 24 HR Interval Summary Free Text/Dictation No acute events overnight. Exam/Review of Systems Exam Vitals Vital Signs Date Temp Pulse Resp B/P (MAP) Pulse Ox O2 O2 Flow FiO2 Time Delivery Rate 01/22/19 98.2 78 18 185/86 97 Room Air 07:25 (119) Intake and Output 01/21/19 01/21/19 01/22/19 1515:00 23:00 07:00 IntakeIntake Total 200 ml 1030 ml OutputOutput Total 740 ml 800 ml BalanceBalance 200 ml 290 ml -800 ml Exam DP/PT pulses weakly palpable Absent protective sensations Elongated mycotic toe nails Right lateral foot ulcer 2 x 2 x 0.2cm granular in nature, no probing to bone, no purulent drainage Right lateral ankle 3 x 1 x 0.2cm granular in nature, dry wound base, no probing to bone, no proximal streaking, no purulence Right plantar 1st metatarsal 2.5 x 2 x 0.2, granular in nature, no probing to bone, no purulent drainage Left medial ankle 5 x 3 x 0.2cm granular in nature, no probing to bone, no puru lent drainage Left medial 1st metatarsal region 0.4 x 0.4 x 0.2cm granular in nature, no probing to bone, no purulent drainage Left hallux distal aspect 2.5 x 2.5 x 0.2cm granular in nature, no probing to bone, no purulent drainage Left lateral 5th metatarsal 1 x 1 x 0.2cm granular in nature, dry wound base, no probing to bone, no purulent drainage Non invasive arterial studies IMPRESSION: Monophasic waveforms below the knee bilaterally. Monophasic wave form in the left popliteal artery. Results Result Diagram: 01/21/1982101/21/19821 Results 24hrs Laboratory Tests Test 01/21/19 21:58 01/22/19 07:57 01/22/19 12:44 01/22/19 17:28 Bedside Glucose 128 145 151 150 Medications Medication Current Medications Famotidine (Pepcid) 20 mg Q12 PO Last administered on 01/22/19 08:09; Admin Dose 20 MG; Start 01/18/19 at 09:00 Acetaminophen/ Hydrocodone Bitart ([place]oppa (10)) 1 tab Q6 PO Last administered on 01/22/19 17:29; Admin Dose 1 TAB; Start 01/18/19 at 06:00 IV Flush (NS 3 ml) 3 ml PER PROTOCOL IV ; Start 01/18/19 at 00:30 Ondansetron HCl (Zofran Inj) 4 mg Q6H PRN IV NAUSEA/VOMITING; Start 01/18/19 at 00:30 Acetaminophen (Tylenol Tab) 650 mg Q6H PRN PO .PAIN 1-3 OR TEMP; Start 01/18/19 at 00:30 Morphine Sulfate (morphine) 2 mg Q4H PRN IV .SEVERE PAIN 7-10 Last administered on 01/19/19 08:04; Admin Dose 2 MG; Start 01/18/19 at 00:30 Hydralazine HCl (Apresoline) 10 mg Q4H PRN IV ELEVATED BLOOD PRESSURE Last administered on 01/21/19at 14:52; Admin Dose 10 MG; Start 01/18/19 at 00:30 Diagnostic Test (Pha) (Accu-Chek) 1 ea 02 XX ; Start 01/18/19 at 02:00 Insulin Aspart (Novolog Insulin Pen) NOVOLOG *MILD* ALGORITHM WITH MEALS BEDTIME SC Last administered on 01/20/19at 12:12; Admin Dose 1 UNIT; Start 01/18/19 at 08:00 Miscellaneous Information 1 ea NOTE XX ; Start 01/18/19 at 01:30 Glucose (Glutose) 15 gm Q15M PRN PO DECREASED GLUCOSE; Start 01/18/19 at 01:30 Glucose (Glutose) 22.5 gm Q15M PRN PO DECREASED GLUCOSE; Start 01/18/19 at 01:30 Dextrose (D50w Syringe) 25 ml Q15M PRN IV DECREASED GLUCOSE; Start 01/18/19 at 01:30 Dextrose (D50w Syringe) 50 ml Q15M PRN IV DECREASED GLUCOSE; Start 01/18/19 at 01:30 Glucagon (Glucagen) 1 mg Q15M PRN IM DECREASED GLUCOSE; Start 01/18/19 at 01:30 Glucose (Glutose) 15 gm Q15M PRN BUCCAL DECREASED GLUCOSE; Start 01/18/19 at 01:30 Miscellaneous Information (Pending Santyl Order For Wound Care) This patient koch... PRN PRN XX WOUND CARE; Start 01/18/19 at 06:00 Collagenase (Santyl) 1 applic DAILY TOP Last administered on 01/21/19at 08:10; Admin Dose 1 APPLIC; Start 01/18/19 at 09:00 Collagenase (Santyl) 1 applic PRN PRN TOP SOIL; Start 01/18/19 at 06:30 Vancomycin HCl (Vanco Iv Per Pharmacy) VANCOMYCIN PER PHARMACY PER PROTOCOL XX ; Start 01/18/19 at 08:00 Heparin Sodium (Porcine) (Heparin (5000 Units/1ml)) 5,000 unit BID SC Last administered on 01/21/19 08:16; Admin Dose 5,000 UNIT; Start 01/18/19 at 09:00 Lisinopril (Zestril) 40 mg DAILY PO Last administered on 01/22/19 08:10; Admin Dose 40 MG; Start 01/19/19 at 09:00 Sodium Hypochlorite (Dakins Diluted ()) 1 applic DAILY TP Last administered on 01/22/19 08:09; Admin Dose 1 APPLIC; Start 01/18/19 at 14:00 Gabapentin (Neurontin) 100 mg TID PO Last administered on 01/22/19 12:53; Admin Dose 100 MG; Start 01/19/19 at 21:00 Metformin HCl (Glucophage) 1,000 mg BID WITH MEALS PO Last administered on 01/22/19 17:30; Admin Dose 1,000 MG; Start 01/20/19 at 18:05 Metoprolol Tartrate (Lopressor) 75 mg BID PO Last administered on 01/22/19 08:10; Admin Dose 75 MG; Start 01/20/19 at 21:00 Vancomycin/Sodium Chloride 250 ml @ 125 mls/hr Q24H IVPB Last administered on 01/22/19 10:46; Admin Dose 125 MLS/HR; Start 01/22/19 at 10:00 Ceftriaxone Sodium 50 ml @ 100 mls/hr Q24H IVPB Last administered on 01/22/19 17:29; Admin Dose 100 MLS/HR; Start 01/21/19 at 16:00 Zinc Sulfate (Zinc Sulfate) 220 mg DAILY PO Last administered on 01/22/19 12:53; Admin Dose 220 MG; Start 01/22/19 at 11:30 Ascorbic Acid (Vitamin C) 500 mg DAILY PO Last administered on 01/22/19 12:54; Admin Dose 500 MG; Start 01/22/19 at 11:30 IV Flush (NS 10 ml) 10 ml PRN PRN IV IV PROTOCOL; Start 01/22/19 at 16:00 JOSSELYN NINO DPM January 22, 2019 19:37
[2019-01-22 20:09] VITALS: BP 213/92; PULSE 77; RESP 18
[2019-01-22] MEDS: hydrALAzine 20 MG INJ IV PRN (22:00)
[2019-01-23] VITALS (8 sets, daily range): BP systolic 118–205; BP diastolic 65–95; PULSE 63–80; RESP 16–18
[2019-01-23] MEDS: ACCU-CHEK XX SCH (02:00)
[2019-01-23] MEDS: HYDROCODONE/APAP (10/325) TAB PO SCH ×4 (06:00→17:10)
[2019-01-23] MEDS: hydrALAzine 20 MG INJ IV PRN (06:48)
[2019-01-23] MEDS: INSULIN ASPART [NOVOLOG] 3 ML PEN SC SCH ×4 (07:53→21:00)
[2019-01-23] MEDS: FAMOTIDINE 20 MG TAB PO SCH ×2 (08:52→21:27)
[2019-01-23] MEDS: MULTIVITAMINS THERAPEUTIC TAB PO SCH (08:52)
[2019-01-23] MEDS: metFORMIN 500 MG TAB PO SCH ×2 (08:52→17:10)
[2019-01-23] MEDS: GABAPENTIN 100 MG CAP PO SCH ×3 (08:52→21:27)
[2019-01-23] MEDS: ZINC SULFATE 220 MG CAP PO SCH (08:52)
[2019-01-23] MEDS: SENNA TAB PO SCH ×2 (08:52→21:00)
[2019-01-23] MEDS: ASCORBIC ACID 500 MG TAB PO SCH (08:52)
[2019-01-23] MEDS: METOPROLOL 25 MG TAB PO SCH ×2 (08:53→21:29)
[2019-01-23] MEDS: COLLAGENASE 5 GM (UD JAR) TOP SCH (08:53)
[2019-01-23] MEDS: BALSAM PERU/CASTOR OIL 60 GM TUBE TOP SCH ×2 (08:53→21:33)
[2019-01-23] MEDS: DAKINS 0.0125%(1/40) 473 ML SOLUTION TP SCH (08:54)
[2019-01-23] MEDS: HEPARIN 5,000 UNIT/1 ML VIAL SC SCH ×2 (08:56→21:00)
[2019-01-23] MEDS: VANCOMYCIN 750 MG (PMX) 250 ML IVPB SCH (10:25)
[2019-01-23] MEDS: LISINOPRIL 20 MG TAB PO SCH (10:26)
--- NOTE | 2019-01-23 12:01 | PN ---
Date/Time of Note Date/Time of Note DATE: 01/23/19 TIME: 11:59 Assessment/Plan VTE Prophylaxis Risk score (from Nsg)>0 risk: 4 SCD applied (from Ns): No SCD contraindicated: other Pharmacological prophylaxis: heparin Lines/Catheters IV Catheter Type (from Nrsg): PICC Line Central line still needed: Yes Urinary Cath still in place: Yes Reason Cath still needed: other (indicate) Assessment/Plan Hospital Course SUBJECTIVE: Patient with elevated blood pressure requiring multiple doses of IV hydralazine. No reported chest pain, palpitation, or other discomfort. OBJECTIVE: Vital signs-see below PHYSICAL EXAM: Constitutional: Adequately built,not in acute distress. HEENT: Head atraumatic and normocephalic. Eyes: Extraocular muscles intact. Anicteric sclerae. Pupils equal bilaterally, reactive to light. NECK: Supple without lymph node. CHEST: Clear and good breath sounds equally. No wheezing. No rhonchi. HEART: S1, S2. Regular rate and rhythm. ABDOMEN: Soft/non tender with no rebound tenderness. Bowel sounds were present. EXTREMITIES: Crow.LEs w/multiple dry wounds. +Fungi nails.Generalized weakness/mild contractures x4 extremities. Incontinent bowel/bladder. No cyanosis, clubbing or edema. NEUROLOGIC: Alert and oriented x3. No focal deficit. No sensory deficit. PSYCHOSOCIAL: No signs of depression. INTEGUMENTARY: No open wounds. ASSESSMENT AND PLAN:63 yo wheelchair bounded M w/dm2/dm ulcers/decubs admitted w/worsening crow LEs wouds .. Bilateral LE diabetic ulcers,-Wound culture +MRSA -Not causing sepsis -s/p bedside excisional debridement -Wound care -Continue antimicrobials. Osteomyelitis involving left 5th toe -PICC line -Abxx6 weeks-IV Rocephin plus vancomycin combination -ID to manage abx DMII - A1c 7.1 -Stable glycemic trends -on oral agent alone -Diabetic education Peripheral neuropathy -On gabapentin Sacral decubitus ulcers -Continue wound care Onychomycosis -s/p nail debridement -Clotrimazole cream Hypertension -Needs more control of blood pressure. I recommend adding amlodipine and continue lisinopril. Will reassess in a.m. Anemia w/ iron deficiency+ chronic inflammation -On iron -Monitor H&H closely and will transfuse if needed. Debility w/contractures -Medical Records unavailable - patient with lack of social support system. He would benefit from ECF. However, patient does not want to be discharged to a senior living. At this time, pillowcase turner to work on arranging regular home health nurse to check on patient with assisting medication/wound care. PT eval/treatment Bowel/bladder incontinence -Chanel insertion. Bowel regimen Homelessness -latex foam worker follow-up DVT prophylaxis: Heparin Disposition: Patient is homeless and is from a transitional facility. He refused to go to a senior living. At this time, plan is to send him back to the transitional care center with 6 weeks on IV Rocephin and vancomycin. Patient to follow-up with towel stretcher at wound care clinic at [facility]. Patient was seen in collaboration with Dr. Cleveland Result Diagram: 01/21/1982101/21/19821 Results 24hrs Laboratory Tests Test 01/22/19 12:44 01/22/19 17:28 01/22/19 20:08 01/23/19 07:50 Bedside Glucose 151 150 133 89 Exam/Review of Systems Exam Vitals Vital Signs Date Temp Pulse Resp B/P (MAP) Pulse Ox O2 O2 Flow FiO2 Time Delivery Rate 01/23/19 74 159/65 11:56 (96) 01/23/19 16 98 Room Air 07:53 01/22/19 98.1 20:09 Intake and Output 01/22/19 01/22/19 01/23/19 1515:00 23:00 07:00 IntakeIntake Total 950 ml 250 ml 200 ml OutputOutput Total 1600 ml 1500 ml BalanceBalance 950 ml -1350 ml -1300 ml Results Results 24hrs Laboratory Tests Test 01/22/19 12:44 01/22/19 17:28 01/22/19 20:08 01/23/19 07:50 Bedside Glucose 151 150 133 89 Medications Medication Current Medications Famotidine (Pepcid) 20 mg Q12 PO Last administered on 01/23/19at 08:52; Admin Dose 20 MG; Start 01/18/19 at 09:00 Acetaminophen/ Hydrocodone Bitart ([place] (10/325)) 1 tab Q6 PO Last administered on 01/22/19at 17:29; Admin Dose 1 TAB; Start 01/18/19 at 06:00 IV Flush (NS 3 ml) 3 ml PER PROTOCOL IV ; Start 01/18/19 at 00:30 Ondansetron HCl (Zofran Inj) 4 mg Q6H PRN IV NAUSEA/VOMITING; Start 01/18/19 at 00:30 Acetaminophen (Tylenol Tab) 650 mg Q6H PRN PO .PAIN 1-3 OR TEMP; Start 01/18/19 at 00:30 Morphine Sulfate (morphine) 2 mg Q4H PRN IV .SEVERE PAIN 7-10 Last administered on 01/19/19 08:04; Admin Dose 2 MG; Start 01/18/19 at 00:30 Hydralazine HCl (Apresoline) 10 mg Q4H PRN IV ELEVATED BLOOD PRESSURE Last administered on 01/23/19 06:48; Admin Dose 10 MG; Start 01/18/19 at 00:30 Diagnostic Test (Pha) (Accu-Chek) 1 ea 02 XX ; Start 01/18/19 at 02:00 Insulin Aspart (Novolog Insulin Pen) NOVOLOG *MILD* ALGORITHM WITH MEALS BEDTIME SC Last administered on 01/20/19at 12:12; Admin Dose 1 UNIT; Start 01/18/19 at 08:00 Miscellaneous Information 1 ea NOTE XX ; Start 01/18/19 at 01:30 Glucose (Glutose) 15 gm Q15M PRN PO DECREASED GLUCOSE; Start 01/18/19 at 01:30 Glucose (Glutose) 22.5 gm Q15M PRN PO DECREASED GLUCOSE; Start 01/18/19 at 01:30 Dextrose (D50w Syringe) 25 ml Q15M PRN IV DECREASED GLUCOSE; Start 01/18/19 at 01:30 Dextrose (D50w Syringe) 50 ml Q15M PRN IV DECREASED GLUCOSE; Start 01/18/19 at 01:30 Glucagon (Glucagen) 1 mg Q15M PRN IM DECREASED GLUCOSE; Start 01/18/19 at 01:30 Glucose (Glutose) 15 gm Q15M PRN BUCCAL DECREASED GLUCOSE; Start 01/18/19 at 01:30 Miscellaneous Information (Pending Santyl Order For Wound Care) This patient koch... PRN PRN XX WOUND CARE; Start 01/18/19 at 06:00 Collagenase (Santyl) 1 applic DAILY TOP Last administered on 01/23/19at 08:53; Admin Dose 1 APPLIC; Start 01/18/19 at 09:00 Collagenase (Santyl) 1 applic PRN PRN TOP SOIL; Start 01/18/19 at 06:30 Vancomycin HCl (Vanco Iv Per Pharmacy) VANCOMYCIN PER PHARMACY PER PROTOCOL XX ; Start 01/18/19 at 08:00 Heparin Sodium (Porcine) (Heparin (5000 Units/1ml)) 5,000 unit BID SC Last administered on 01/21/19 08:16; Admin Dose 5,000 UNIT; Start 01/18/19 at 09:00 Lisinopril (Zestril) 40 mg DAILY PO Last administered on 01/23/19 10:26; Admin Dose 40 MG; Start 01/19/19 at 09:00 Sodium Hypochlorite (Dakins Diluted ()) 1 applic DAILY TP Last administered on 01/23/19 08:54; Admin Dose 1 APPLIC; Start 01/18/19 at 14:00 Gabapentin (Neurontin) 100 mg TID PO Last administered on 01/23/19 08:52; Admin Dose 100 MG; Start 01/19/19 at 21:00 Metformin HCl (Glucophage) 1,000 mg BID WITH MEALS PO Last administered on 01/23/19 08:52; Admin Dose 1,000 MG; Start 01/20/19 at 18:05 Metoprolol Tartrate (Lopressor) 75 mg BID PO Last administered on 01/23/19 08:53; Admin Dose 75 MG; Start 01/20/19 at 21:00 Vancomycin/Sodium Chloride 250 ml @ 125 mls/hr Q24H IVPB Last administered on 01/23/19 10:25; Admin Dose 125 MLS/HR; Start 01/22/19 at 10:00 Ceftriaxone Sodium 50 ml @ 100 mls/hr Q24H IVPB Last administered on 01/22/19 17:29; Admin Dose 100 MLS/HR; Start 01/21/19 at 16:00 Zinc Sulfate (Zinc Sulfate) 220 mg DAILY PO Last administered on 01/23/19 08:52; Admin Dose 220 MG; Start 01/22/19 at 11:30 Ascorbic Acid (Vitamin C) 500 mg DAILY PO Last administered on 01/23/19 08:52; Admin Dose 500 MG; Start 01/22/19 at 11:30 IV Flush (NS 10 ml) 10 ml PRN PRN IV IV PROTOCOL; Start 01/22/19 at 16:00 Multivitamins Therapeutic (Theragran) 1 tab DAILY PO Last administered on 01/23/19at 08:52; Admin Dose 1 TAB; Start 01/23/19 at 09:00 Senna (Senokot) 2 tab BID PO Last administered on 01/23/19at 08:52; Admin Dose 2 TAB; Start 01/23/19 at 09:00 SAMUEL CAMPOS NP January 23, 2019 12:00
[2019-01-23] MEDS: AMLODIPINE 5 MG TAB PO SCH (12:14)
[2019-01-23] MEDS ORDERED: hydrALAzine 20 MG INJ IV PRN (12:30)
--- NOTE | 2019-01-23 16:22 | CONS ---
Assessment/Plan Assessment/Plan Hospital Course (Demo Recall) No acute events ANTIMICROBIALS: 1. Vancomycin. 2. Rocephin. ALLERGIES: HE IS NOT ALLERGIC TO ANY ANTIBIOTICS. PHYSICAL EXAMINATION: GENERAL: Well-nourished, well-developed elderly -[place] man who is awake, in no distress. HEENT: Head is atraumatic, normocephalic. Sclerae are anicteric. Buccal mucosa is dry. NECK: Supple. CHEST: Rise symmetrical. Breath sounds diminished to bases. HEART: S1, S2. ABDOMEN: Soft. Bowel tones are present. EXTREMITIES: With bilateral lower extremities dressing intact. Assessment: 1. Bilateral lower extremities diabetic ulcerations 2. Left foot osteomyelitis 3. Diabetes with diabetic neuropathy Plan: Patient remains stable, discharge arrangements in process, patient to continue on IV antibiotics to complete 8 weeks for MRSA OM, monitor renal function Consultation Date/Type/Reason Admit Date/Time January 18, 2019 at 09:31 Initial Consult Date Type of Consult id Date/Time of Note DATE: 01/23/19 TIME: 16:20 Exam/Review of Systems Exam Vitals Vital Signs Date Temp Pulse Resp B/P (MAP) Pulse Ox O2 O2 Flow FiO2 Time Delivery Rate 01/23/19 72 191/91 12:00 (124) 01/23/19 16 98 Room Air 07:53 01/22/19 98.1 20:09 Intake and Output 01/22/19 01/22/19 01/23/19 1515:00 23:00 07:00 IntakeIntake Total 950 ml 250 ml 200 ml OutputOutput Total 1600 ml 1500 ml BalanceBalance 950 ml -1350 ml -1300 ml Results Result Diagram: 01/21/19 0822 01/21/19 0822 Results 24hrs Laboratory Tests Test 01/22/19 17:28 01/22/19 20:08 01/23/19 07:50 01/23/19 12:14 Bedside Glucose 150 133 89 106 Medications Medication Current Medications Famotidine (Pepcid) 20 mg Q12 PO Last administered on 01/23/19at 08:52; Admin Dose 20 MG; Start 01/18/19 at 09:00 Acetaminophen/ Hydrocodone Bitart ([place] (10/325)) 1 tab Q6 PO Last administered on 01/23/19at 12:14; Admin Dose 1 TAB; Start 01/18/19 at 06:00 IV Flush (NS 3 ml) 3 ml PER PROTOCOL IV ; Start 01/18/19 at 00:30 Ondansetron HCl (Zofran Inj) 4 mg Q6H PRN IV NAUSEA/VOMITING; Start 01/18/19 at 00:30 Acetaminophen (Tylenol Tab) 650 mg Q6H PRN PO .PAIN 1-3 OR TEMP; Start 01/18/19 at 00:30 Morphine Sulfate (morphine) 2 mg Q4H PRN IV .SEVERE PAIN 7-10 Last administered on 01/19/19at 08:04; Admin Dose 2 MG; Start 01/18/19 at 00:30 Diagnostic Test (Pha) (Accu-Chek) 1 ea 02 XX ; Start 01/18/19 at 02:00 Insulin Aspart (Novolog Insulin Pen) NOVOLOG *MILD* ALGORITHM WITH MEALS BEDTIME SC Last administered on 01/20/19 12:12; Admin Dose 1 UNIT; Start 01/18 at 08:00 Miscellaneous Information 1 ea NOTE XX ; Start 01/18/19 at 01:30 Glucose (Glutose) 15 gm Q15M PRN PO DECREASED GLUCOSE; Start 01/18/19 at 01:30 Glucose (Glutose) 22.5 gm Q15M PRN PO DECREASED GLUCOSE; Start 01/18/19 at 01:30 Dextrose (D50w Syringe) 25 ml Q15M PRN IV DECREASED GLUCOSE; Start 01/18/19 at 01:30 Dextrose (D50w Syringe) 50 ml Q15M PRN IV DECREASED GLUCOSE; Start 01/18/19 at 01:30 Glucagon (Glucagen) 1 mg Q15M PRN IM DECREASED GLUCOSE; Start 01/18/19 at 01:30 Glucose (Glutose) 15 gm Q15M PRN BUCCAL DECREASED GLUCOSE; Start 01/18/19 at 01:30 Miscellaneous Information (Pending Santyl Order For Wound Care) This patient koch... PRN PRN XX WOUND CARE; Start 01/18/19 at 06:00 Collagenase (Santyl) 1 applic DAILY TOP Last administered on 01/23/19at 08:53; Admin Dose 1 APPLIC; Start 01/18/19 at 09:00 Collagenase (Santyl) 1 applic PRN PRN TOP SOIL; Start 01/18/19 at 06:30 Vancomycin HCl (Vanco Iv Per Pharmacy) VANCOMYCIN PER PHARMACY PER PROTOCOL XX ; Start 01/18/19 at 08:00 Heparin Sodium (Porcine) (Heparin (5000 Units/1ml)) 5,000 unit BID SC Last administered on 01/21/19 08:16; Admin Dose 5,000 UNIT; Start 01/18/19 at 09:00 Lisinopril (Zestril) 40 mg DAILY PO Last administered on 01/23/19 10:26; Admin Dose 40 MG; Start 01/19/19 at 09:00 Sodium Hypochlorite (Dakins Diluted ()) 1 applic DAILY TP Last administered on 01/23/19 08:54; Admin Dose 1 APPLIC; Start 01/18/19 at 14:00 Gabapentin (Neurontin) 100 mg TID PO Last administered on 01/23/19 12:14; Admin Dose 100 MG; Start 01/19/19 at 21:00 Metformin HCl (Glucophage) 1,000 mg BID WITH MEALS PO Last administered on 01/23/19 08:52; Admin Dose 1,000 MG; Start 01/20/19 at 18:05 Metoprolol Tartrate (Lopressor) 75 mg BID PO Last administered on 01/23/19 08:53; Admin Dose 75 MG; Start 01/20/19 at 21:00 Vancomycin/Sodium Chloride 250 ml @ 125 mls/hr Q24H IVPB Last administered on 01/23/19 10:25; Admin Dose 125 MLS/HR; Start 01/22/19 at 10:00 Ceftriaxone Sodium 50 ml @ 100 mls/hr Q24H IVPB Last administered on 01/22/19 17:29; Admin Dose 100 MLS/HR; Start 01/21/19 at 16:00 Zinc Sulfate (Zinc Sulfate) 220 mg DAILY PO Last administered on 01/23/19 08:52; Admin Dose 220 MG; Start 01/22/19 at 11:30 Ascorbic Acid (Vitamin C) 500 mg DAILY PO Last administered on 01/23/19 08:52; Admin Dose 500 MG; Start 01/22/19 at 11:30 IV Flush (NS 10 ml) 10 ml PRN PRN IV IV PROTOCOL; Start 01/22/19 at 16:00 Multivitamins Therapeutic (Theragran) 1 tab DAILY PO Last administered on 01/23/19 08:52; Admin Dose 1 TAB; Start 01/23/19 at 09:00 Senna (Senokot) 2 tab BID PO Last administered on 01/23/19 08:52; Admin Dose 2 TAB; Start 01/23/19 at 09:00 Hydralazine HCl (Apresoline) 10 mg Q6H PRN IV ELEVATED BLOOD PRESSURE; Start 01/23/19 at 12:30 Amlodipine Besylate (Norvasc) 5 mg DAILY PO Last administered on 01/23/19at 12:14; Admin Dose 5 MG; Start 01/23/19 at 12:00 CHANTALE RAMIREZ NP January 23, 2019 16:22
[2019-01-23] MEDS: CEFTRIAXONE 2 GM/50 ML (PMX) 50 ML IVPB SCH (17:03)
[2019-01-24] VITALS (7 sets, daily range): BP systolic 154–192; BP diastolic 65–91; PULSE 60–75; RESP 17–19
[2019-01-24] MEDS: HYDROCODONE/APAP (10/325) TAB PO SCH ×4 (00:13→17:17)
[2019-01-24] MEDS: ACCU-CHEK XX SCH (02:00)
[2019-01-24] MEDS: GABAPENTIN 100 MG CAP PO SCH ×2 (08:00→12:31)
[2019-01-24] MEDS: FAMOTIDINE 20 MG TAB PO SCH (08:00)
[2019-01-24] MEDS: metFORMIN 500 MG TAB PO SCH ×2 (08:00→17:17)
[2019-01-24] MEDS: INSULIN ASPART [NOVOLOG] 3 ML PEN SC SCH ×3 (08:00→17:17)
[2019-01-24] MEDS: ZINC SULFATE 220 MG CAP PO SCH (08:00)
[2019-01-24] MEDS: MULTIVITAMINS THERAPEUTIC TAB PO SCH (08:00)
[2019-01-24] MEDS: ASCORBIC ACID 500 MG TAB PO SCH (08:01)
[2019-01-24] MEDS: METOPROLOL 25 MG TAB PO SCH (08:01)
[2019-01-24] MEDS: SENNA TAB PO SCH (08:01)
[2019-01-24] MEDS: HEPARIN 5,000 UNIT/1 ML VIAL SC SCH (08:02)
[2019-01-24] MEDS: LISINOPRIL 20 MG TAB PO SCH (08:02)
[2019-01-24] MEDS: AMLODIPINE 5 MG TAB PO SCH (08:02)
[2019-01-24] MEDS: BALSAM PERU/CASTOR OIL 60 GM TUBE TOP SCH (08:03)
[2019-01-24] MEDS: DAKINS 0.0125%(1/40) 473 ML SOLUTION TP SCH (08:03)
[2019-01-24] MEDS: COLLAGENASE 5 GM (UD JAR) TOP SCH (08:07)
[2019-01-24] MEDS ORDERED: AMLODIPINE 5 MG TAB PO ONE (09:00)
[2019-01-24] MEDS: VANCOMYCIN 750 MG (PMX) 250 ML IVPB SCH (09:20)
--- NOTE | 2019-01-24 12:04 | PDOCDIS ---
Discharge Instructions CONDITION [id number] Patient Condition: [id number] Stable HOME CARE INSTRUCTIONS: [id number] Your diet recommendation is: [id number] Carbohydrate controlled diet FOLLOW UP/APPOINTMENTS Follow-up Plan Follow-up with primary care physician in 1 week. You are discharged with 6 weeks of IV antibiotics which you need to complete. You will then need to come back to [facility] amputation prevention clinic for follow-up. SAMUEL CAMPOS NP January 24, 2019 12:03
[2019-01-24] MEDS ORDERED: ASC500 PO (12:10)
[2019-01-24] MEDS ORDERED: SODI473S5 TP (12:10)
[2019-01-24] MEDS ORDERED: GABA100C14 PO (12:10)
[2019-01-24] MEDS ORDERED: LISI40TA3 PO (12:10)
[2019-01-24] MEDS ORDERED: BALS60OI TOP (12:10)
[2019-01-24] MEDS ORDERED: MULTI PO (12:10)
[2019-01-24] MEDS ORDERED: METO25TA4 PO (12:10)
[2019-01-24] MEDS ORDERED: CEFT1FRO2 IV (12:13)
[2019-01-24] MEDS ORDERED: [UNRECOGNIZED DRUG - REMARK] (12:13)
--- NOTE | 2019-01-24 12:21 | DS ---
Date/Time of Note Date/Time of Note DATE: 01/24/19 TIME: 12:18 Discharge Summary Admission/Discharge Info Admit Date/Time January 18, 2019 at 09:31 Discharge Date/Time Discharge Diagnosis Bilateral LE diabetic ulcers,-Wound culture +MRSA -s/p bedside excisional debridement Osteomyelitis involving left 5th toe DMII Peripheral neuropathy Sacral decubitus ulcers Onychomycosis Hypertension Anemia w/ iron deficiency+ chronic inflammation Debility w/contractures Bowel/bladder incontinence Homelessness Patient Condition: Stable Consults ,plant culture manager ,ID Procedures 01/20/2019: MRI left foot. IMPRESSION: 1. Osteomyelitis within the proximal half of the fifth metatarsal extending to the base with mild cortical irregularity along the lateral aspect and an adjacent skin ulcer. 2. Small focus of osteomyelitis within the medial distal tip of the first distal phalanx with cortical irregularity, abnormal marrow signal, and an adjacent skin ulcer. 3. 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 A superimposed subacute to subchronic fracture may also be present. Mild osteoarthrosis of the first metatarsophalangeal joint. 4. Chronic-appearing nondisplaced transverse fracture of the third metatarsal neck. .Bettye Valencia MD, MD Date Time Electronically viewed and signed by .Bettye Valencia MD, MD on 01/20/2019 15:26 01/22/2019: Insertion of left-sided PICC i Hospital Course 63 yo wheelchair bounded M w/dm2/dm ulcers/decubs admitted w/worsening vicky LEs wouds .. She had podiatry follow-up and underwent excisional debridement. Patient also had osteomyelitis involving left fifth toe. Patient was being followed by infectious disease specialist. He had PICC line and recommended 6 weeks on IV Rocephin and vancomycin. Patient was noted with controlled diabetes for which he was continued on metformin therapy. He was also given low-dose gabapentin with improvement in his neuropathic pain. Patient was given aggressive wound care for sacral decubitus ulcers. He also had nail debridement for onychomycosis. Patient was also noted with poorly managed blood pressure requiring addition of antihypertensives. His blood pressure remained stable. He was also given iron supplementation for underlying anemia. Patient is a good candidate for a retirement, however he refused it. He wanted to be discharged back to the transitional care center he came with IV antibiotic and home health wound care. She also had a Chanel placed as he was noted with bladder incontinence which is making the pressure ulcers worse. Approximately 60-minute was spent on coordinating the discharge on this patient. Patient was seen in collaboration with Dr. Cleveland. Home Meds Active Scripts Gabapentin* (Gabapentin*) 100 Mg Capsule, 100 MG PO TID, #90 CAP Prov:CAMPOS,SAMUEL V. ELECTRIC SIGN ASSEMBLER 01/24/19 Balsam Tiffany/[place] Oil (Venelex Ointment) 60 Gm Oint..gm., 1 APPLIC TOP BID, #1 TUB Bilateral sacral wounds Prov:CAMPOS,SAMUEL V. ELECTRIC SIGN ASSEMBLER 01/24/19 Sodium Hypochlorite (Di-Dak-[place]) 473 Ml Solution, 1 APPLIC TP DAILY, #1 BOTTLE Cleanse with Dakin solution bilateral feet, apply Betadine dressing 4 x 4 and then wrapped with Kerlix/Ben wrap daily. Prov:CAMPOS,SAMUEL V. ELECTRIC SIGN ASSEMBLER 01/24/19 Multivitamins* (Theragran*) 1 Tab Tab, 1 TAB PO DAILY, #30 TAB Prov:CAMPOS,SAMUEL V. ELECTRIC SIGN ASSEMBLER 01/24/19 Ascorbic Acid (Vitamin C) 500 Mg Tab, 500 MG PO DAILY, #30 TAB Prov:CAMPOS,SAMUEL V. ELECTRIC SIGN ASSEMBLER 01/24/19 Metoprolol Tartrate* (Lopressor*) 25 Mg Tablet, 75 MG PO BID, #180 TAB Prov:CAMPOS,SAMUEL V. ELECTRIC SIGN ASSEMBLER 01/24/19 Lisinopril* (Lisinopril*) 40 Mg Tablet, 40 MG PO DAILY, #30 TAB Prov:CAMPOS,SAMUEL V. ELECTRIC SIGN ASSEMBLER 01/24/19 Lisinopril* (Lisinopril*) 20 Mg Tablet, 20 MG PO DAILY for 30 Days, TAB Prov:CARO CORONEL MD 10/24/18 Famotidine* (Famotidine*) 20 Mg Tablet, 20 MG PO Q12 for 10 Days, TAB Prov:CARO CORONEL MD 10/23/18 Reported Medications Hydrocodone/Acetaminophen ([place] 10-325 Tablet) 1 Each Tablet, 1 EACH PO, TAB 10/22/18 Metoprolol Tartrate* (Lopressor*) 50 Mg Tab, 50 MG PO BID, #60 TAB 10/22/18 Metformin* (Glucophage*) 1,000 Mg Tablet, 1000 MG PO WITH BREAKFAST DINNE, #30 TAB 10/22/18 Discontinued Scripts Metoprolol Tartrate* (Lopressor*) 50 Mg Tab, 50 MG PO BID for 30 Days, TAB Prov:CARO CORONEL MD 10/24/18 Ceftriaxone Sod* (Rocephin* 1GM/50ML (PMX)) 1 Gm/50 Ml Iv.soln., 1 GM IVPB Q24H for 10 Days, EA Prov:CARO CORONEL MD 10/23/18 Sitagliptin* (Januvia*) 50 Mg Tablet, 50 MG PO DAILY, #30 TAB Prov:CARO CORONEL MD 10/23/18 Acetaminophen* (Tylenol*) 325 Mg Tablet, 650 MG PO Q6H PRN for .PAIN 1-3 OR TEMP for 10 Days, TAB Prov:CARO CORONEL MD 10/23/18 Enoxaparin Sodium (Enoxaparin Sodium) 40 Mg/0.4 Ml Syringe, 40 MG SC DAILY for 10 Days Prov:CARO CORONEL MD 10/23/18 Vancomycin/0.9 % Sod Chloride (Vanco 1 Gram/250 ml-0.9% NaCl) 1 Gm/250 Ml Plast..bag, 1 GM IV DAILY for 10 Days Prov:CARO CORONEL MD 10/23/18 [Vancomycin Iv Per Pharmacy] 1 EA EACH No Conflict Check, 0 EA XX .PER PROTOCOL for 10 Days Prov:CARO CORONEL MD 10/23/18 Follow-up Plan Follow-up with primary care physician in 1 week. You are discharged with 6 weeks of IV antibiotics which you need to complete. You will then need to come back to [facility] amputation prevention clinic for follow-up. Primary Care Provider [facility] Pending Labs Laboratory Tests Test 01/23/19 17:05 01/23/19 21:35 01/24/19 06:24 01/24/19 07:59 Bedside 99 104 95 Glucose mg/dL (70-220) mg/dL (70-220) mg/dL (70-220) Sodium Level 139 mmol/L (135-14 4) Potassium 4.3 Level mmol/L (3.5-5. 1) Chloride Level 109 mmol/L (97-110 ) Carbon Dioxide 24 Level mmol/L (21-31) Anion Gap 6 (5-13) Blood Urea 25 Nitrogen mg/dl (7-20) Creatinine 0.86 mg/dl (0.61-1. 24) Est Glomerular > 60 Filtrat mL/min (>60) Rate mL/min Glucose Level 93 mg/dl (70-220) Calcium Level 8.8 mg/dl (8.4-10. 2) Test 01/24/19 12:12 Bedside 117 Glucose mg/dL (70-220) SAMUEL CAMPOS V. ELECTRIC SIGN ASSEMBLER January 24, 2019 12:21
--- NOTE | 2019-01-24 15:04 | CONS ---
Assessment/Plan Assessment/Plan Hospital Course (Demo Recall) No acute events patient is sleeping, looks comfortable, no fevers overnight ANTIMICROBIALS: 1. Vancomycin. 2. Rocephin. ALLERGIES: HE IS NOT ALLERGIC TO ANY ANTIBIOTICS. PHYSICAL EXAMINATION: GENERAL: Well-nourished, well-developed elderly -Citizen Of [place] man who is awake, in no distress. HEENT: Head is atraumatic, normocephalic. Sclerae are anicteric. Buccal mucosa is dry. NECK: Supple. CHEST: Rise symmetrical. Breath sounds diminished to bases. HEART: S1, S2. ABDOMEN: Soft. Bowel tones are present. EXTREMITIES: With bilateral lower extremities dressing intact. Assessment: 1. Bilateral lower extremities diabetic ulcerations 2. Left foot osteomyelitis 3. Diabetes with diabetic neuropathy Plan: Patient remains stable, pending discharge arrangements on current antibiotics to complete 8 weeks Consultation Date/Type/Reason Admit Date/Time January 18, 2019 at 09:31 Initial Consult Date Type of Consult id Date/Time of Note DATE: 01/24/19 TIME: 15:03 Exam/Review of Systems Exam Vitals Vital Signs Date Temp Pulse Resp B/P (MAP) Pulse Ox O2 O2 Flow FiO2 Time Delivery Rate 01/24/19 98.8 73 19 157/75 98 14:27 (102) 01/24/19 Room Air 02:00 Intake and Output 01/23/19 01/23/19 01/24/19 1515:00 23:00 07:00 IntakeIntake Total 1050 ml 450 ml 300 ml OutputOutput Total 750 ml 700 ml 700 ml BalanceBalance 300 ml -250 ml -400 ml Results Result Diagram: 01/21/19 0822 01/24/19 0624 Results 24hrs Laboratory Tests Test 01/23/19 17:05 01/23/19 21:35 01/24/19 06:24 01/24/19 07:59 Bedside Glucose 99 104 95 Sodium Level 139 Potassium Level 4.3 Chloride Level 109 Carbon Dioxide Level 24 Anion Gap 6 Blood Urea Nitrogen 25 H Creatinine 0.86 Est Glomerular > 60 Filtrat Rate mL/min Glucose Level 93 Calcium Level 8.8 Test 01/24/19 12:12 Bedside Glucose 117 Medications Medication Current Medications Famotidine (Pepcid) 20 mg Q12 PO Last administered on 01/24/19at 08:00; Admin Dose 20 MG; Start 01/18/19 at 09:00 Acetaminophen/ Hydrocodone Bitart ([place] ()) 1 tab Q6 PO Last administered on 01/24/19 12:31; Admin Dose 1 TAB; Start 01/18/19 at 06:00 IV Flush (NS 3 ml) 3 ml PER PROTOCOL IV ; Start 01/18/19 at 00:30 Ondansetron HCl (Zofran Inj) 4 mg Q6H PRN IV NAUSEA/VOMITING; Start 01/18/19 at 00:30 Acetaminophen (Tylenol Tab) 650 mg Q6H PRN PO .PAIN 1-3 OR TEMP; Start 01/18/19 at 00:30 Morphine Sulfate (morphine) 2 mg Q4H PRN IV .SEVERE PAIN 7-10 Last administered on 01/19/19 08:04; Admin Dose 2 MG; Start 01/18/19 at 00:30 Diagnostic Test (Pha) (Accu-Chek) 1 ea 02 XX ; Start 01/18/19 at 02:00 Insulin Aspart (Novolog Insulin Pen) NOVOLOG *MILD* ALGORITHM WITH MEALS BEDTIME SC Last administered on 01/20/19 12:12; Admin Dose 1 UNIT; Start 01/18/19 at 08:00 Miscellaneous Information 1 ea NOTE XX ; Start 01/18/19 at 01:30 Glucose (Glutose) 15 gm Q15M PRN PO DECREASED GLUCOSE; Start 01/18/19 at 01:30 Glucose (Glutose) 22.5 gm Q15M PRN PO DECREASED GLUCOSE; Start 01/18/19 at 01:30 Dextrose (D50w Syringe) 25 ml Q15M PRN IV DECREASED GLUCOSE; Start 01/18/19 at 01:30 Dextrose (D50w Syringe) 50 ml Q15M PRN IV DECREASED GLUCOSE; Start 01/18/19 at 01:30 Glucagon (Glucagen) 1 mg Q15M PRN IM DECREASED GLUCOSE; Start 01/18/19 at 01:30 Glucose (Glutose) 15 gm Q15M PRN BUCCAL DECREASED GLUCOSE; Start 01/18/19 at 01:30 Miscellaneous Information (Pending Santyl Order For Wound Care) This patient koch... PRN PRN XX WOUND CARE; Start 01/18/19 at 06:00 Collagenase (Santyl) 1 applic DAILY TOP Last administered on 01/23/19 08:53; A dmin Dose 1 APPLIC; Start 01/18/19 at 09:00 Collagenase (Santyl) 1 applic PRN PRN TOP SOIL; Start 01/18/19 at 06:30 Vancomycin HCl (Vanco Iv Per Pharmacy) VANCOMYCIN PER PHARMACY PER PROTOCOL XX ; Start 01/18/19 at 08:00 Heparin Sodium (Porcine) (Heparin (5000 Units/1ml)) 5,000 unit BID SC Last a dministered on 01/21/19 08:16; Admin Dose 5,000 UNIT; Start 01/18/19 at 09:00 Lisinopril (Zestril) 40 mg DAILY PO Last administered on 01/24/19 08:02; Admin Dose 40 MG; Start 01/19/19 at 09:00 Sodium Hypochlorite (Dakins Diluted ()) 1 applic DAILY TP Last administered on 01/24/19 08:03; Admin Dose 1 APPLIC; Start 01/18/19 at 14:00 Gabapentin (Neurontin) 100 mg TID PO Last administered on 01/24/19 12:31; Admin Dose 100 MG; Start 01/19/19 at 21:00 Metformin HCl (Glucophage) 1,000 mg BID WITH MEALS PO Last administered on 01/24/19 08:00; Admin Dose 1,000 MG; Start 01/20/19 at 18:05 Metoprolol Tartrate (Lopressor) 75 mg BID PO Last administered on 01/24/19 08:01; Admin Dose 75 MG; Start 01/20/19 at 21:00 Vancomycin/Sodium Chloride 250 ml @ 125 mls/hr Q24H IVPB Last administered on 01/24/19 09:20; Admin Dose 125 MLS/HR; Start 01/22/19 at 10:00 Ceftriaxone Sodium 50 ml @ 100 mls/hr Q24H IVPB Last administered on 01/23/19 17:03; Admin Dose 100 MLS/HR; Start 01/21/19 at 16:00 Zinc Sulfate (Zinc Sulfate) 220 mg DAILY PO Last administered on 01/24/19 08:00; Admin Dose 220 MG; Start 01/22/19 at 11:30 Ascorbic Acid (Vitamin C) 500 mg DAILY PO Last administered on 01/24/19 08:01; Admin Dose 500 MG; Start 01/22/19 at 11:30 IV Flush (NS 10 ml) 10 ml PRN PRN IV IV PROTOCOL; Start 01/22/19 at 16:00 Multivitamins Therapeutic (Theragran) 1 tab DAILY PO Last administered on 01/24/19at 08:00; Admin Dose 1 TAB; Start 01/23/19 at 09:00 Senna (Senokot) 2 tab BID PO Last administered on 01/24/19at 08:01; Admin Dose 2 TAB; Start 01/23/19 at 09:00 Hydralazine HCl (Apresoline) 10 mg Q6H PRN IV ELEVATED BLOOD PRESSURE Last administered on 01/23/19at 17:12; Admin Dose 10 MG; Start 01/23/19 at 12:30 Amlodipine Besylate (Norvasc) 10 mg DAILY PO ; Start 01/25/19 at 09:00 Clonidine (Catapres) 0.1 mg TID PO Last administered on 01/24/19at 12:32; Admin Dose 0.1 MG; Start 01/24/19 at 09:00 Miscellaneous Information Patients own medicat... BID@ XX ; Start 01/24/19 at 16:00 CHANTALE RAMIREZ NP January 24, 2019 15:04
[2019-01-24] MEDS: CEFTRIAXONE 2 GM/50 ML (PMX) 50 ML IVPB SCH (15:59)
[2019-01-25] MEDS ORDERED: AMLODIPINE 10 MG TAB PO SCH (09:00)
== END 2019-01-24 18:46 | disposition home health service (06) | DRG 623 ==
LOC: E/R 19:03 → PP2 22:34 → OBSVTOIN 01-18 09:31
PROVIDERS: ADMIT Internal Medicine; ATTEND Family Medicine
PROC: 0JBR0ZZ Excision of Left Foot Subcutaneous Tissue and Fascia, Open Approach (ICD-10-PCS; principal; 2019-01-18)
PROC: 0JBQ0ZZ Excision of Right Foot Subcutaneous Tissue and Fascia, Open Approach (ICD-10-PCS; 2019-01-18)
PROC: 0HBRXZZ Excision of Toe Nail, External Approach (ICD-10-PCS; 2019-01-18)
PROC: 0HBRXZZ Excision of Toe Nail, External Approach (ICD-10-PCS; 2019-01-18)
PROC: 0HBRXZZ Excision of Toe Nail, External Approach (ICD-10-PCS; 2019-01-18)
PROC: 0HBRXZZ Excision of Toe Nail, External Approach (ICD-10-PCS; 2019-01-18)
PROC: 0HBRXZZ Excision of Toe Nail, External Approach (ICD-10-PCS; 2019-01-18)
PROC: 0HBRXZZ Excision of Toe Nail, External Approach (ICD-10-PCS; 2019-01-18)
PROC: 0HBRXZZ Excision of Toe Nail, External Approach (ICD-10-PCS; 2019-01-18)
PROC: 0HBRXZZ Excision of Toe Nail, External Approach (ICD-10-PCS; 2019-01-18)
PROC: 0HBRXZZ Excision of Toe Nail, External Approach (ICD-10-PCS; 2019-01-18)
PROC: 0HBRXZZ Excision of Toe Nail, External Approach (ICD-10-PCS; 2019-01-18)
PROC: 02HV33Z Insertion of Infusion Device into Superior Vena Cava, Percutaneous Approach (ICD-10-PCS; 2019-01-22)
DX: E11.621 Type 2 diabetes mellitus with foot ulcer (principal); M86.9 Osteomyelitis, unspecified; L97.529 Non-pressure chronic ulcer of other part of left foot with unspecified severity; E11.65 Type 2 diabetes mellitus with hyperglycemia; L97.519 Non-pressure chronic ulcer of other part of right foot with unspecified severity; E11.69 Type 2 diabetes mellitus with other specified complication; I10 Essential (primary) hypertension; R53.81 Other malaise; B35.1 Tinea unguium; L89.159 Pressure ulcer of sacral region, unspecified stage; E11.42 Type 2 diabetes mellitus with diabetic polyneuropathy; B35.3 Tinea pedis; R32 Unspecified urinary incontinence; D50.9 Iron deficiency anemia, unspecified; R15.9 Full incontinence of feces; F17.200 Nicotine dependence, unspecified, uncomplicated; Z99.3 Dependence on wheelchair; Z79.84 Long term (current) use of oral hypoglycemic drugs; Z59.0 Homelessness
CPT/HCPCS: 36415; 36569; 71045; 73610; 73630; 73718; 76937; 80048; 80053; 80061; 80202; 82306; 82565; 82728; 82962; 83036; 83540; 83605; 83735; 84145; 84443; 84520; 85025; 85610; 85651; 85730; 86140; 87070; 93923; 93970; 96374; 96375; 97162; G0378; J0360; J0696; J1644; J1815; J2270; J2543; J2916; J3370; J7030

== ENCOUNTER 2019-02-01 09:06 | Emergency (ER) | payer OTHER ==
[~2019-02-01] VITALS: Wt 75.0 kg
[~2019-02-01 09:06] MED LIST changes: -ACET325T33 PO; +ASC500 PO; +BALS60OI TOP; +CEFT1FRO2 IV; -CEFT1PIG2 IVPB; -ENOX40DI12 SC; +GABA100C14 PO; -LISI-471 PO; +LISI40TA3 PO; -METO-429 PO; +METO25TA4 PO; +MULTI PO; -SITA50TA2 PO; +SODI473S5 TP; -VANC1PLA9 IV; -Vancomycin Iv Per Pharmacy XX; +[UNRECOGNIZED DRUG - REMARK]
[2019-02-01 09:33] VITALS: BP 140/65; PULSE 78; RESP 18
[2019-02-01] MEDS ORDERED: BACITRACIN 0.9 GM OINT TOP ONE (11:00)
--- NOTE | 2019-02-01 12:48 | ERD ---
ER Documentation Chief Complaint Chief Complaint chronic vicky feet wounds HPI Patient is a 63-year-old male with hypertension, diabetes, and osteomyelitis who presents for foot wounds. He says that he just wants his feet to be wrapped again and then discharged. He was recently admitted for these foot wounds and was discharged on January 24. He was discharged to a facility but said "I had a leave that place". Upon review of old medical records this is the patient's fifth visit to the ER since 2011. Review of the emergency department information exchange system shows visits to 4 separate emergency departments for a total of 10 visits over the past 1 year. ROS All systems reviewed and are negative except as per history of present illness. Medications Home Meds Active Scripts [vancomycin pharm] No Conflict Check, for 40 Days Prov:CAMILLE CAMPOSA Dorinda. HAND TILE MAKER 01/24/19 Ceftriaxone Na/Dextrose,Iso (Ceftriaxone 1 gm Piggyback) 1 Gm/50 Ml Froz.piggy, 1 GM IV DAILY for 40 Days Prov:CAMILLE CAMPOSA Dorinda. HAND TILE MAKER 01/24/19 Gabapentin* (Gabapentin*) 100 Mg Capsule, 100 MG PO TID, #90 CAP Prov:CAMPOSCAMILLE LAWA V. HAND TILE MAKER 01/24/19 Balsam Tiffany/[place] Oil (Venelex Ointment) 60 Gm Oint..gm., 1 APPLIC TOP BID, #1 TUB Bilateral sacral wounds Prov:SAMUEL CAMPOS V. HAND TILE MAKER 01/24/19 Sodium Hypochlorite (Di-Dak-[place]) 473 Ml Solution, 1 APPLIC TP DAILY, #1 BOTTLE Cleanse with Dakin solution bilateral feet, apply Betadine dressing 4 x 4 and then wrapped with Kerlix/Ben wrap daily. Prov:CAMPOSCAMILLE LAWA Dorinda. HAND TILE MAKER 01/24/19 Multivitamins* (Theragran*) 1 Tab Tab, 1 TAB PO DAILY, #30 TAB Prov:CAMPOSCAMILLEA Dorinda. HAND TILE MAKER 01/24/19 Ascorbic Acid (Vitamin C) 500 Mg Tab, 500 MG PO DAILY, #30 TAB Prov:CAMPOS,SAMUEL V. HAND TILE MAKER 01/24/19 Metoprolol Tartrate* (Lopressor*) 25 Mg Tablet, 75 MG PO BID, #180 TAB Prov:CAMPOSSAMUEL V. HAND TILE MAKER 01/24/19 Lisinopril* (Lisinopril*) 40 Mg Tablet, 40 MG PO DAILY, #30 TAB Prov:SAMUEL CAMPOS NP 01/24/19 Famotidine* (Famotidine*) 20 Mg Tablet, 20 MG PO Q12 for 10 Days, TAB Prov:CARO CORONEL MD 10/23/18 Reported Medications Hydrocodone/Acetaminophen ([place] 10-325 Tablet) 1 Each Tablet, 1 EACH PO, TAB 10/22/18 Metformin* (Glucophage*) 1,000 Mg Tablet, 1000 MG PO WITH BREAKFAST DINNE, #30 TAB 10/22/18 Allergies Allergies: Coded Allergies: No Known Allergy (Unverified , 10/22/18) PMhx/Soc History of Surgery: Yes (Lt. hip surgery after fall ) Anesthesia Reaction: No Hx Neurological Disorder: Yes (Neuropathy) Hx Respiratory Disorders: No Hx Cardiac Disorders: Yes (HTN) Hx Psychiatric Problems: Yes (Depression) Hx Miscellaneous Medical Probl: No Hx Alcohol Use: Yes (Occasional ) Hx Substance Use: No Hx Tobacco Use: Yes Smoking Status: Current every day smoker FmHx Family History: diabetes Physical Exam Vitals Vital Signs Date Temp Pulse Resp B/P (MAP) Pulse Ox O2 O2 Flow FiO2 Time Delivery Rate 02/01/19 98.2 78 18 140/65 99 09:33 (90) Physical Exam Const: No acute distress Head: Atraumatic Eyes: Normal Conjunctiva ENT: Normal External Ears, Nose and Mouth. Neck: Full range of motion. No meningismus. Resp: Clear to auscultation bilaterally Cardio: Regular rate and rhythm, no murmurs Abd: Soft, non tender, non distended. Normal bowel sounds Skin: Acute on chronic skin changes of the bilateral lower extremities with o pen wounds that have been wrapped Back: No midline or flank tenderness Ext: No cyanosis, or edema Neur: Awake and alert, patient in a wheelchair chronically Results 24 hrs Current Medications Medications Dose Sig/[place] Start Time Status Last (Trade) Ordered Route PRN Stop Time Admin Dose Reason Admin Bacitracin 1 applic ONCE ONCE 02/01/19 DC 02/01/19 (Bacitracin TOP 11:00 02/01/19 10:51 Oint (Ud)) 11:01 Procedures/MDM Patient is a 63-year-old male with diabetes and osteomyelitis who presents with foot wounds. His wounds were cleaned and dressed with bacitracin and new dressings. He does not want further work-up or admission to the hospital at this time and is just requesting dressing changes and discharge. The patient can return for any worsening symptoms. He was recently admitted for these wo unds which were managed. He can return for any worsening symptoms. Departure Diagnosis: Primary Impression: Osteomyelitis Osteomyelitis type: unspecified type Osteomyelitis location: unspecified site Qualified Codes: M86.9 - Osteomyelitis, unspecified Additional Impression: Foot pain Laterality: bilateral Qualified Codes: M79.671 - Pain in right foot; M79.672 - Pain in left foot Condition: Fair Patient Instructions: Osteomyelitis Additional Instructions: Call your primary care doctor TOMORROW for an appointment during the next 1-2 days.See the doctor sooner or return here if your condition worsens before your appointment time. EMILIANO WILSON MD Feb 01, 2019 12:48
== END 2019-02-01 09:45 | disposition home or self-care (01) ==
LOC: E/R 09:06
DX: S91.302A Unspecified open wound, left foot, initial encounter (principal); M86.9 Osteomyelitis, unspecified; M79.672 Pain in left foot; I10 Essential (primary) hypertension; E11.9 Type 2 diabetes mellitus without complications; F17.210 Nicotine dependence, cigarettes, uncomplicated; S91.301A Unspecified open wound, right foot, initial encounter; X58.XXXA Exposure to other specified factors, initial encounter; Y92.9 Unspecified place or not applicable; Z79.84 Long term (current) use of oral hypoglycemic drugs
CPT/HCPCS: Z7502; Z7610; 99282

== ENCOUNTER 2019-02-05 22:30 | Inpatient (IN) | payer OTHER ==
[~2019-02-05] VITALS: Ht 172.7 cm; Wt 75.0 kg
--- NOTE | 2019-02-06 03:22 | ERD ---
ER Documentation Chief Complaint Chief Complaint worsening diabetic ulcers on vicky feet HPI This is a 63-year-old male with worsening diabetic foot ulcers on his bilateral feet. They have been draining purulent drainage she says. No fevers no chills no nausea vomiting. No other current complaints. ROS All systems reviewed and are negative except as per history of present illness. Medications Home Meds Active Scripts [vancomycin pharm] No Conflict Check, for 40 Days Prov:SAMUEL CAMPOS NP 01/24/19 Ceftriaxone Na/Dextrose,Iso (Ceftriaxone 1 gm Piggyback) 1 Gm/50 Ml Froz.piggy, 1 GM IV DAILY for 40 Days Prov:CAMPOSSAMUEL LAW V. RUG SIZER 01/24/19 Gabapentin* (Gabapentin*) 100 Mg Capsule, 100 MG PO TID, #90 CAP Prov:SAMUEL CAMPOS NP 01/24/19 Balsam Tiffany/[place] Oil (Venelex Ointment) 60 Gm Oint..gm., 1 APPLIC TOP BID, #1 TUB Bilateral sacral wounds Prov:SAMUEL CAMPOS NP 01/24/19 Sodium Hypochlorite (Di-Dak-[place]) 473 Ml Solution, 1 APPLIC TP DAILY, #1 BOTTLE Cleanse with Dakin solution bilateral feet, apply Betadine dressing 4 x 4 and then wrapped with Kerlix/Ben wrap daily. Prov:SAMUEL CAMPOS NP 01/24/19 Multivitamins* (Theragran*) 1 Tab Tab, 1 TAB PO DAILY, #30 TAB Prov:SAMUEL CAMPOS NP 01/24/19 Ascorbic Acid (Vitamin C) 500 Mg Tab, 500 MG PO DAILY, #30 TAB Prov:CAMPOSSAMUEL LAW V. RUG SIZER 01/24/19 Metoprolol Tartrate* (Lopressor*) 25 Mg Tablet, 75 MG PO BID, #180 TAB Prov:SAMUEL CAMPOS V. RUG SIZER 01/24/19 Lisinopril* (Lisinopril*) 40 Mg Tablet, 40 MG PO DAILY, #30 TAB Prov:CAMPOS,SAMUEL V. RUG SIZER 01/24/19 Famotidine* (Famotidine*) 20 Mg Tablet, 20 MG PO Q12 for 10 Days, TAB Prov:CARO CORONEL MD 10/23/18 Reported Medications Hydrocodone/Acetaminophen ([place] 10-325 Tablet) 1 Each Tablet, 1 EACH PO, TAB 10/22/18 Metformin* (Glucophage*) 1,000 Mg Tablet, 1000 MG PO WITH BREAKFAST DINNE, #30 TAB 10/22/18 Allergies Allergies: Coded Allergies: No Known Allergy (Unverified , 10/22/18) PMhx/Soc History of Surgery: Yes (Lt. hip surgery after fall ) Anesthesia Reaction: No Hx Neurological Disorder: Yes (Neuropathy) Hx Respiratory Disorders: No Hx Cardiac Disorders: Yes (HTN) Hx Psychiatric Problems: Yes (Depression) Hx Miscellaneous Medical Probl: No Hx Alcohol Use: Yes (Occasional ) Hx Substance Use: No Hx Tobacco Use: Yes Smoking Status: Current some day smoker Physical Exam Vitals Vital Signs Date Temp Pulse Resp B/P (MAP) Pulse Ox O2 O2 Flow FiO2 Time Delivery Rate 02/06/19 95 14 176/89 100 Room Air 02:00 (118) 02/05/19 98.9 96 20 163/72 99 22:52 (102) Physical Exam Const: No acute distress Head: Atraumatic Eyes: Normal Conjunctiva ENT: Normal External Ears, Nose and Mouth. Neck: Full range of motion. No meningismus. Resp: Clear to auscultation bilaterally Cardio: Regular rate and rhythm, no murmurs Abd: Soft, non tender, non distended. Normal bowel sounds Skin: Multiple diabetic foot ulcers noted bilateral feet in varying stages. Purulent drainage noted from the heel of the left ulcer and from the forefoot of the right Back: No midline or flank tenderness Ext: No cyanosis, or edema Neur: Awake and alert Psych: Normal Mood and Affect Result Diagram: 02/06/19 0214 02/06/19 0214 Results 24 hrs Laboratory Tests Test 02/06/19 02:14 White Blood Count 7.9 10^3/ul Red Blood Count 3.14 10^6/ul Hemoglobin 8.3 g/dl Hematocrit 27.3 % Mean Corpuscular Volume 86.9 fl Mean Corpuscular Hemoglobin 26.4 pg Mean Corpuscular Hemoglobin Concent 30.4 g/dl Red Cell Distribution Width 14.5 % Platelet Count 415 10^3/UL Mean Platelet Volume 10.3 fl Immature Granulocytes % 0.300 % Neutrophils % 70.9 % Lymphocytes % 17.8 % Monocytes % 8.1 % Eosinophils % 2.3 % Basophils % 0.6 % Nucleated Red Blood Cells % 0.0 /100WBC Immature Granulocytes # 0.020 10^3/ul Neutrophils # 5.6 10^3/ul Lymphocytes # 1.4 10^3/ul Monocytes # 0.6 10^3/ul Eosinophils # 0.2 10^3/ul Basophils # 0.1 10^3/ul Nucleated Red Blood Cells # 0.0 10^3/ul Sodium Level 142 mmol/L Potassium Level 3.8 mmol/L Chloride Level 107 mmol/L Carbon Dioxide Level 27 mmol/L Anion Gap 8 Blood Urea Nitrogen 28 mg/dl Creatinine 0.92 mg/dl Est Glomerular Filtrat Rate mL/min > 60 mL/min Glucose Level 222 mg/dl Calcium Level 8.7 mg/dl Total Bilirubin 0.4 mg/dl Direct Bilirubin 0.00 mg/dl Indirect Bilirubin 0.4 mg/dl Aspartate Amino Transf (AST/SGOT) 17 IU/L Alanine Aminotransferase (ALT/SGPT) 9 IU/L Alkaline Phosphatase 103 IU/L Total Protein 7.3 g/dl Albumin 3.4 g/dl Globulin 3.90 g/dl Albumin/Globulin Ratio 0.87 Lipase 46 U/L Current Medications Medications Dose Sig/[place] Start Time Status Last (Trade) Ordered Route PRN Stop Time Admin Dose Reason Admin Piperacillin 100 ml @ ONCE ONCE 02/06/19 Sod/ 200 mls/hr IVPB 03:30 02/06/19 Tazobactam 03:59 Sod Ondansetron 4 mg BRIDGE ORDER 02/06/19 HCl (Zofran PRN IV 03:30 02/07/19 Inj) NAUSEA/VOMITI 03:29 NG 650 mg ER BRIDGE 02/06/19 Acetaminophen PRN PO 03:30 02/07/19 (Tylenol .MILD PAIN 03:29 Tab) 1-3 OR TEMP Procedures/MDM Medical decision makin-year-old male with worsening diabetic foot ulcers that look infected. Patient started on antibiotics post cultures. Patient will be admitted to hospitalist further evaluation and management. Departure Diagnosis: Primary Impression: Decubitus ulcer, heel, left, unstageable Condition: Stable CARMEN TIM Feb 06, 2019 03:22
[2019-02-06] MEDS ORDERED: ACETAMINOPHEN 325 MG TAB PO PRN ×2 (03:30→05:30)
[2019-02-06] MEDS ORDERED: PIPER-TAZO 3.375 GM IV (PMX) 100 ML IVPB ONE (03:30)
[2019-02-06] MEDS ORDERED: ONDANSETRON 4 MG INJ IV PRN ×2 (03:30→05:30)
[2019-02-06] MEDS ORDERED: morphine 2 MG INJ IV PRN (05:30)
[2019-02-06] MEDS ORDERED: LORAZEPAM 2 MG INJ IV PRN (05:30)
[2019-02-06] MEDS ORDERED: ALBUTEROL/IPRATROPIUM (NEB) 3 ML AMP HHN PRN (05:30)
[2019-02-06] MEDS ORDERED: VANCOMYCIN IV PER PHARMACY XX SCH (05:30)
[2019-02-06] MEDS ORDERED: DOCUSATE SODIUM 100 MG CAP PO PRN (05:30)
[2019-02-06] MEDS ORDERED: NITROGLYCERIN (SL) 0.4 MG TAB SL PRN (05:30)
[2019-02-06] MEDS ORDERED: MAGNESIUM HYDROXIDE 30ML CUP PO PRN (05:30)
[2019-02-06] MEDS: SOD CHLORIDE 0.45% 1,000 ML IV SCH ×2 (05:32→18:06)
[2019-02-06] MEDS: PANTOPRAZOLE (EC) 40 MG TAB PO SCH (05:37)
--- NOTE | 2019-02-06 05:43 | HP ---
Date/Time of Note Date/Time of Note DATE: 02/06/19 TIME: 05:36 Assessment/Plan VTE Prophylaxis SCD applied (from Nsg): No SCD contraindicated: other Pharmacological prophylaxis: heparin Lines/Catheters IV Catheter Type (from Nrsg): [place] Assessment/Plan Hospital Course Assessment and plan: 63-year-old male past medical history of hypertension, sacral decubitus ulcers, diabetes, osteomyelitis, smoking history, homelessness, anemia, incontinence who presents with worsening diabetic foot ulcers on his bilateral feet occurring for the last few days. 1. Bilateral lower extremity feet ulcers, diabetic: Again patient treated for recent osteomyelitis and MRSA infection of the lower extremities last month. -We will place patient on broad-spectrum antibiotic's and obtain podiatry and ID consults -We will also obtain social security assessor and wound care consult -Tylenol PRN pain fevers and trend lactic acid follow-up culture results, check TSH, A1c, lipid panel 2. Diabetes: Follow-up A1c, continue sliding scale 3. Hypertension: Stable, continue current medications 4. History of sacral decubitus ulcers: Again will obtain wound care consult 5. Anemia: Hemoglobin is presently stable -Monitor for now 6. History of urine incontinence: Monitor, if worsens consider Chanel catheter placement Result Diagram: 02/06/19 0214 02/06/19 0214 Results 24hrs Laboratory Tests Test 02/06/19 02:14 White Blood Count 7.9 # Red Blood Count 3.14 L Hemoglobin 8.3 L Hematocrit 27.3 L Mean Corpuscular Volume 86.9 Mean Corpuscular Hemoglobin 26.4 L Mean Corpuscular Hemoglobin Concent 30.4 L Red Cell Distribution Width 14.5 Platelet Count 415 Mean Platelet Volume 10.3 Immature Granulocytes % 0.300 Neutrophils % 70.9 Lymphocytes % 17.8 Monocytes % 8.1 Eosinophils % 2.3 Basophils % 0.6 Nucleated Red Blood Cells % 0.0 Immature Granulocytes # 0.020 Neutrophils # 5.6 Lymphocytes # 1.4 Monocytes # 0.6 Eosinophils # 0.2 Basophils # 0.1 Nucleated Red Blood Cells # 0.0 Sodium Level 142 Potassium Level 3.8 Chloride Level 107 Carbon Dioxide Level 27 Anion Gap 8 Blood Urea Nitrogen 28 H Creatinine 0.92 Est Glomerular Filtrat Rate mL/min > 60 Glucose Level 222 H Calcium Level 8.7 Total Bilirubin 0.4 Direct Bilirubin 0.00 Indirect Bilirubin 0.4 Aspartate Amino Transf (AST/SGOT) 17 Alanine Aminotransferase (ALT/SGPT) 9 L Alkaline Phosphatase 103 Total Protein 7.3 Albumin 3.4 Globulin 3.90 H Albumin/Globulin Ratio 0.87 Lipase 46 HPI/ROS Admit Date/Time Admit Date/Time Hx of Present Illness 63-year-old male past medical history of hypertension, sacral decubitus ulcers, diabetes, osteomyelitis, smoking history, homelessness, anemia, incontinence who presents with worsening diabetic foot ulcers on his bilateral feet occurring for the last few days. Patient states these have been draining purulent drainage, but denies fevers no chills no nausea vomiting. Also denies any upper or lower GI bleeding, diarrhea const patient, chest pain or shortness of breath. Patient was last here to hospital from January 18 to January 24, 2019 and treated for diabetic foot ulcer and also myelitis at that time with debridement performed at that time. When patient arrived he appears very unkempt and again has a history of homelessness. PMH/Family/Social Past Medical History Medications Current Medications Ondansetron HCl (Zofran Inj) 4 mg BRIDGE ORDER PRN IV NAUSEA/VOMITING; Start 02/06/19 at 03:30; Stop 02/07/19 at 03:29 Acetaminophen (Tylenol Tab) 650 mg ER BRIDGE PRN PO .MILD PAIN 1-3 OR TEMP; Start 02/06/19 at 03:30; Stop 02/07/19 at 03:29 IV Flush (NS 3 ml) 3 ml PER PROTOCOL IV ; Start 02/06/19 at 05:30 Ondansetron HCl (Zofran Inj) 4 mg Q6H PRN IV NAUSEA/VOMITING; Start 02/06/19 at 05:30 Acetaminophen (Tylenol Tab) 650 mg Q6H PRN PO .PAIN 1-3 OR TEMP; Start 02/06/19 at 05:30 Acetaminophen/ Hydrocodone Bitart ([place] (5/325)) 1 tab Q6H PRN PO .MOD PAIN 4- 6; Start 02/06/19 at 05:30 Morphine Sulfate (morphine) 2 mg Q4H PRN IV .SEVERE PAIN 7-10; Start 02/06/19 at 05:30 Docusate Sodium (Colace) 100 mg Q12H PRN PO .CONSTIPATION; Start 02/06/19 at 05:30 Magnesium Hydroxide (Milk Of Mag) 30 ml DAILY PRN PO .CONSTIPATION; Start 02/06/19 at 05:30 Pantoprazole (Protonix Tab) 40 mg DAILY@06 PO ; Start 02/06/19 at 06:00 Heparin Sodium (Porcine) (Heparin (5000 Units/1ml)) 5,000 unit Q12 SC ; Start 02/06/19 at 09:00 Sodium Chloride 1,000 ml @ 75 mls/hr [id number] IV Last administered on 02/06/19at 05:32; Admin Dose 75 MLS/HR; Start 02/06/19 at 05:21 Lorazepam (Ativan) 0.5 mg Q6H PRN IV ANXIETY; Start 02/06/19 at 05:30 Albuterol/ Ipratropium (Duoneb) 3 ml Q4H RESP THERAPY PRN HHN SHORTNESS OF BREATH; Start 02/06/19 at 05:30 Piperacillin Sod/ Tazobactam Sod 100 ml @ 200 mls/hr Q6 IVPB ; Start 02/06/19 at 12:00 Vancomycin HCl (Vanco Iv Per Pharmacy) VANCOMYCIN PER PHARMACY NOTE XX ; Start 02/06/19 at 05:30 Hydralazine HCl (Apresoline) 10 mg Q6H PRN IV ELEVATED BLOOD PRESSURE; Start 02/06/19 at 05:30 Clonidine (Catapres) 0.1 mg Q6H PRN PO ELEVATED SYSTOLIC BP; Start 02/06/19 at 05:30 Nitroglycerin (Nitroglycerin (Sl Tab) 0.4 Mg) 1 tab Q5M PRN SL ANGINA; Start 02/06/19 at 05:30 Ascorbic Acid (Vitamin C) 500 mg DAILY PO ; Start 02/06/19 at 09:00 Famotidine (Pepcid) 20 mg Q12 PO ; Start 02/06/19 at 09:00 Gabapentin (Neurontin) 100 mg TID PO ; Start 02/06/19 at 09:00 Metoprolol Tartrate (Lopressor) 75 mg BID PO ; Start 02/06/19 at 09:00 Multivitamins Therapeutic (Theragran) 1 tab DAILY PO ; Start 02/06/19 at 09:00 Vancomycin HCl 1.5 gm/Sodium Chloride 250 ml @ 83.333 mls/ hr ONCE ONCE IVPB ; Start 02/06/19 at 07:00; Stop 02/06/19 at 09:59 Vancomycin HCl 250 ml @ 125 mls/hr Q12H IVPB ; Start 02/06/19 at 19:00 Coded Allergies: No Known Allergy (Unverified , 10/22/18) Past Surgical History Past Surgical Hx: other (Left hip surgery, lower extremity debridement) Family History Significant Family History: no pertinent family hx Social History Alcohol Use: occasionally Smoking Status: Current some day smoker Drug Use: none Exam/Review of Systems Vital Signs Vitals Vital Signs Date Temp Pulse Resp B/P (MAP) Pulse Ox O2 O2 Flow FiO2 Time Delivery Rate 02/06/19 96 16 160/83 100 Room Air 04:00 (108) 02/05/19 98.9 22:52 Exam Exam GENERAL: lying in bed, no acute distress, disheveled HEENT: Pupils equal, round, and reactive to light. EOMI. NECK: Supple LUNGS: Clear to auscultation bilaterally, no rales, wheezes or rhonchi. HEART: Regular rate and rhythm, no murmurs, clicks, rubs or gallops. ABDOMEN: Soft, NT, non-distended. Positive bowel sounds in all four quadrants. No rebound or guarding. EXTREMITIES: Multiple diabetic foot ulcers noted bilateral feet in varying stages. Purulent drainage noted from the heel of the left ulcer and from the forefoot of the right NEURO: No focal deficits KATELYN LOCKE Feb 06, 2019 05:43
[2019-02-06] MEDS ORDERED: VANCOMYCIN HCL 1.5 GM in SOD CHLORIDE 0.9% 250 ML IVPB ONE (07:00)
[2019-02-06 08:39] VITALS: BP 161/75; PULSE 88; RESP 18
[2019-02-06] MEDS: FAMOTIDINE 20 MG TAB PO SCH ×2 (09:52→21:56)
[2019-02-06] MEDS: GABAPENTIN 100 MG CAP PO SCH ×3 (09:52→21:57)
[2019-02-06] MEDS: ASCORBIC ACID 500 MG TAB PO SCH (09:52)
[2019-02-06] MEDS: MULTIVITAMINS THERAPEUTIC TAB PO SCH (09:52)
[2019-02-06] MEDS: METOPROLOL 25 MG TAB PO SCH ×2 (09:52→21:56)
[2019-02-06] MEDS: HEPARIN 5,000 UNIT/1 ML VIAL SC SCH ×2 (09:58→21:00)
--- NOTE | 2019-02-06 10:13 | QN ---
Documentation Comment 63-year-old male past medical history of hypertension, sacral decubitus ulcers, diabetes, osteomyelitis, smoking history, homelessness, anemia, incontinence who presents with worsening diabetic foot ulcers on his bilateral feet.. He was recently discharged from [facility] on 6-week of IV Rocephin and vancomycin for osteomyelitis. At that time, I have discussed with patient regarding the need for going to a care home facility where he can get more attention to his bilateral lower extremity ulcers and appropriate wound care which patient did not want to. Instead he opted to go back to the transitional care facility with a limited nursing care service. His bilateral lower extremity wound started to get worse and he decided to come back to our emergency room. Will await for podiatry and ID recommendations. Continue wound care and antibiotics. Carbohydrate controlled diet, Accu-Cheks/ISS/basal/bolus insulin. Case discussed with SAMUEL Titus NP Feb 06, 2019 10:13
[2019-02-06 11:21] VITALS: Ht 172.7 cm; Wt 75.0 kg
[2019-02-06] MEDS: PIPER-TAZO 3.375 GM IV (PMX) 100 ML IVPB SCH ×3 (11:33→23:47)
[2019-02-06] MEDS: HYDROCODONE/APAP (5/325) TAB PO PRN ×2 (11:33→21:57)
--- NOTE | 2019-02-06 12:44 | CONS ---
DATE OF ADMISSION: 02/06/2019 DATE OF CONSULTATION: 02/06/2019 TYPE OF CONSULTATION: Infectious disease. REASON FOR CONSULTATION: Antibiotic management. HISTORY OF PRESENT ILLNESS: Silver Mays is a 63-year-old male who comes in with worsening diabeti c foot ulcers on bilateral feet. They have been draining purulent drainage. He denies fever or chil ls, nausea or vomiting. His past problems include: 1. Adult-onset diabetes mellitus. 2. Diabetic ulcers. 3. Diabetic neuropathy. 4. Left hip surgery after a fall. 5. Hypertension. 6. Depression. PAST MEDICAL HISTORY: As outlined. FAMILY HISTORY: Noncontributory. SOCIAL HISTORY: He is an occasional smoker. He drinks socially. He does not use drugs. ALLERGIES: None to penicillin, sulfa or foods. MEDICATIONS: Per chart. REVIEW OF SYSTEMS: As per HPI. PHYSICAL EXAMINATION: GENERAL: The patient is a well-developed, well-nourished male who is awake, responsive, in no acute distress. VITAL SIGNS: Stable. He is afebrile. SKIN: Without generalized rash. HEENT: Within normal limits. NECK: Supple. LYMPH NODES: None palpable. CHEST: Decreased breath sounds at the bases. HEART: Without murmur or gallop. ABDOMEN: Soft, nontender, without organosplenomegaly or masses. EXTREMITIES: Without cyanosis, clubbing, or edema. RECTAL/GENITAL: Exam is deferred. He has multiple diabetic foot ulcers, bilateral and in varying st ages with purulent drainage from the heel of the left ulcer and from the forefoot of the right ulcer. RECTAL AND GENITAL: Deferred. NEUROLOGIC: No focal neurological abnormality. ANCILLARY LABORATORY DATA: White count 7.9 with 71% neutrophils, H and H 8.3 and 27.3, platelet coun t 415,000. BUN and creatinine 28/0.92, blood sugar of 222. IMPRESSION AND PLAN: Patient was placed on Zosyn and decubitus ulcer of the left heel was unstageabl e, bilateral lower extremities with ulcers, recent history of osteomyelitis and MRSA infection of the lower extremities last month, history of urinary incontinence, has a history of sacral decubitus ulc ers as well. He is homeless. He is incontinent. Patient is on vancomycin as well as Zosyn to which I concur. I will dictate my findings to the hospitalists. Dictated By: PATEL RANDHAWA MD, JD/SAVANNAH Conf#: [id number] DID#: [id number] CC: KATELYN LOCKE;*EndCC*
[2019-02-06] MEDS ORDERED: GLUCOSE GEL 15 GRAM TUBE BUCCAL PRN (14:30)
[2019-02-06] MEDS ORDERED: GLUCAGON 1 MG INJ IM PRN (14:30)
[2019-02-06] MEDS ORDERED: GLUCOSE GEL 15 GRAM TUBE PO PRN ×2 (14:30)
[2019-02-06] MEDS ORDERED: DEXTROSE 50% 50 ML SYRINGE IV PRN ×2 (14:30)
[2019-02-06] MEDS ORDERED: PENDING SANTYL ORDER FOR WOUND CARE XX PRN (17:00)
[2019-02-06] MEDS: INSULIN GLARGINE [LANTus] (100 UNITS/ML) SYG SC SCH (17:18)
[2019-02-06] MEDS: INSULIN ASPART [NOVOLOG] 3 ML PEN SC SCH ×2 (17:19→21:00)
[2019-02-06] MEDS: VANCOMYCIN 500 MG (PMX) 100 ML IVPB SCH (18:08)
[2019-02-06] MEDS ORDERED: COLLAGENASE 5 GM (UD JAR) TOP PRN (18:30)
[2019-02-06] MEDS ORDERED: VANCOMYCIN 1 GM (PMX) 250 ML IVPB SCH (19:00)
[2019-02-06 20:32] VITALS: BP 143/61; PULSE 88; RESP 18
[2019-02-07] MEDS: ACCU-CHEK XX SCH (02:00)
[2019-02-07 02:24] VITALS: BP 133/68; PULSE 72; RESP 18
[2019-02-07] MEDS: PANTOPRAZOLE (EC) 40 MG TAB PO SCH (05:28)
[2019-02-07] MEDS: PIPER-TAZO 3.375 GM IV (PMX) 100 ML IVPB SCH ×3 (05:28→17:25)
[2019-02-07] MEDS: VANCOMYCIN 500 MG (PMX) 100 ML IVPB SCH ×2 (05:59→22:55)
[2019-02-07 08:00] VITALS: BP 181/81; PULSE 74; RESP 18
[2019-02-07] MEDS: INSULIN ASPART [NOVOLOG] 3 ML PEN SC SCH ×4 (08:00→20:31)
[2019-02-07] MEDS: INSULIN GLARGINE [LANTus] (100 UNITS/ML) SYG SC SCH (08:00)
[2019-02-07] MEDS: HEPARIN 5,000 UNIT/1 ML VIAL SC SCH (09:00)
[2019-02-07] MEDS ORDERED: metFORMIN 500 MG TAB PO SCH (09:30)
[2019-02-07] MEDS: HYDROCODONE/APAP (5/325) TAB PO PRN ×3 (09:49→20:42)
[2019-02-07] MEDS: ASCORBIC ACID 500 MG TAB PO SCH (09:49)
[2019-02-07] MEDS: MULTIVITAMINS THERAPEUTIC TAB PO SCH (09:50)
[2019-02-07] MEDS: METOPROLOL 25 MG TAB PO SCH ×2 (09:50→20:19)
[2019-02-07] MEDS: GABAPENTIN 100 MG CAP PO SCH ×3 (09:50→20:18)
[2019-02-07] MEDS: FAMOTIDINE 20 MG TAB PO SCH ×2 (09:50→20:28)
[2019-02-07] MEDS: COLLAGENASE 5 GM (UD JAR) TOP SCH (09:51)
--- NOTE | 2019-02-07 10:04 | PN ---
Date/Time of Note Date/Time of Note DATE: 02/07/19 TIME: 10:02 Assessment/Plan VTE Prophylaxis Risk score (from Ns)>0 risk: 3 SCD applied (from Ns): No SCD contraindicated: other Pharmacological prophylaxis: NA/contraindicated Pharm contraindication: other (pt refused) Lines/Catheters IV [facility] (from [facility] Peripheral IV Urinary Cath still in place: Yes Reason Cath still needed: skin wounds contaminated by urine, other (indicate) Assessment/Plan Hospital Course SUBJECTIVE: Patient has been refusing insulin. He has been having a low-grade fevers. OBJECTIVE: Vital signs-see below PHYSICAL EXAM: Constitutional: Chronically ill looking male,not in acute distress. HEENT: Head atraumatic and normocephalic. Eyes: Extraocular muscles intact. Anicteric sclerae. Pupils equal bilaterally, reactive to light. NECK: Supple without lymph node. CHEST: Clear and good breath sounds equally. No wheezing. No rhonchi. HEART: S1, S2. Regular rate and rhythm. ABDOMEN: Soft/non tender with no rebound tenderness. Bowel sounds were present. EXTREMITIES: Crow.LEs w/multiple dry wounds/Swelling. +Fungi nails.Generalized weakness/mild contractures x4 extremities. Incontinent bowel/bladder. No cyanosis, clubbing or edema. NEUROLOGIC: Highly temperamental. Alert and oriented x3. Generalized weakness to all 4 extremities with contractures. PSYCHOSOCIAL: No signs of depression. INTEGUMENTARY: No open wounds. ASSESSMENT AND PLAN:63 yo wheelchair bounded M w/dm2/dm ulcers/decubs admitted w/worsening crow LEs wouds .. Bilateral LE diabetic ulcers -Wound care -Continue antimicrobials. -Follow-up cultures. -BC 1/2 growing gram + -Follow-up podiatry recommendations Osteomyelitis -Patient was not on 6 weeks IV antibiotics which he has to complete. DMII --Stable glycemic trends - refused insulin inhouse -Metformin Peripheral neuropathy -cont. gabapentin Sacral decubitus ulcers -Continue wound care Onychomycosis -Clotrimazole cream -Podiatry f/u for PRN nail debridement Hypertension -stable -cont.BB/ACEi Anemia w/ iron deficiency+ chronic inflammation -stable -cont.oral iron Debility w/contractures -wheelchair bounded -SNF planning -PT eval/treatment when appropriate per podiatry in terms of weight bearing Bowel/bladder incontinence -change arango q 30days Homelessness -addiction social worker follow-up DVT prophylaxis: Refused ATC Disposition: Patient is homeless and is from a transitional facility. What it seems like he is not getting appropriate wound care.Last time we recommed SNF whcih he refused.CM to work on ECF placement where he gets appropraite wound care. Patient was seen in collaboration with Dr. Cleveland Result Diagram: 02/07/19 0650 02/07/19 0649 Results 24hrs Laboratory Tests Test 02/06/19 14:24 02/06/19 17:16 02/06/19 18:07 02/06/19 21:53 Lactic Acid Level 0.9 1.0 Bedside Glucose 146 225 H Test 02/06/19 23:15 02/07/19 06:49 02/07/19 06:50 02/07/19 08:20 Lactic Acid Level 0.9 Sodium Level 140 Potassium Level 3.4 L Chloride Level 107 Carbon Dioxide Level 27 Anion Gap 6 Blood Urea Nitrogen 22 H Creatinine 1.04 Est Glomerular Filtrat > 60 Rate mL/min Glucose Level 102 # Calcium Level 8.2 L Phosphorus Level 3.7 Magnesium Level 1.8 Triglycerides Level 49 Cholesterol Level 119 LDL Cholesterol, 68 Calculated HDL Cholesterol 41 Cholesterol/HDL Ratio 2.9 Thyroid Stimulating 4.170 Hormone (TSH) White Blood Count 3.7 #L Red Blood Count 2.90 L Hemoglobin 7.5 L Hematocrit 25.6 L Mean Corpuscular Volume 88.3 Mean Corpuscular 25.9 L Hemoglobin Mean Corpuscular 29.3 L Hemoglobin Concent Red Cell Distribution 14.6 H Width Platelet Count 352 Mean Platelet Volume 10.3 Immature Granulocytes % 0.300 Neutrophils % 59.2 Lymphocytes % 25.0 Monocytes % 9.4 Eosinophils % 4.8 Basophils % 1.3 Nucleated Red Blood 0.0 Cells % Immature Granulocytes # 0.010 Neutrophils # 2.2 Lymphocytes # 0.9 Monocytes # 0.4 Eosinophils # 0.2 Basophils # 0.1 Nucleated Red Blood 0.0 Cells # Hemoglobin A1c 6.5 H Bedside Glucose 99 Exam/Review of Systems Exam Vitals Vital Signs Date Temp Pulse Resp B/P (MAP) Pulse Ox O2 O2 Flow FiO2 Time Delivery Rate 02/07/19 98.2 72 18 133/68 96 02:24 (89) 02/06/19 Room Air 08:39 Intake and Output 02/06/19 02/06/19 02/07/19 1515:00 23:00 07:00 IntakeIntake Total 100 ml 875 ml OutputOutput Total 500 ml BalanceBalance 100 ml 375 ml Results Results 24hrs Laboratory Tests Test 02/06/19 14:24 02/06/19 17:16 02/06/19 18:07 02/06/19 21:53 Lactic Acid Level 0.9 1.0 Bedside Glucose 146 225 H Test 02/06/19 23:15 02/07/19 06:49 02/07/19 06:50 02/07/19 08:20 Lactic Acid Level 0.9 Sodium Level 140 Potassium Level 3.4 L Chloride Level 107 Carbon Dioxide Level 27 Anion Gap 6 Blood Urea Nitrogen 22 H Creatinine 1.04 Est Glomerular Filtrat > 60 Rate mL/min Glucose Level 102 # Calcium Level 8.2 L Phosphorus Level 3.7 Magnesium Level 1.8 Triglycerides Level 49 Cholesterol Level 119 LDL Cholesterol, 68 Calculated HDL Cholesterol 41 Cholesterol/HDL Ratio 2.9 Thyroid Stimulating 4.170 Hormone (TSH) White Blood Count 3.7 #L Red Blood Count 2.90 L Hemoglobin 7.5 L Hematocrit 25.6 L Mean Corpuscular Volume 88.3 Mean Corpuscular 25.9 L Hemoglobin Mean Corpuscular 29.3 L Hemoglobin Concent Red Cell Distribution 14.6 H Width Platelet Count 352 Mean Platelet Volume 10.3 Immature Granulocytes % 0.300 Neutrophils % 59.2 Lymphocytes % 25.0 Monocytes % 9.4 Eosinophils % 4.8 Basophils % 1.3 Nucleated Red Blood 0.0 Cells % Immature Granulocytes # 0.010 Neutrophils # 2.2 Lymphocytes # 0.9 Monocytes # 0.4 Eosinophils # 0.2 Basophils # 0.1 Nucleated Red Blood 0.0 Cells # Hemoglobin A1c 6.5 H Bedside Glucose 99 Medications Medication Current Medications IV Flush (NS 3 ml) 3 ml PER PROTOCOL IV ; Start 02/06/19 at 05:30 Ondansetron HCl (Zofran Inj) 4 mg Q6H PRN IV NAUSEA/VOMITING; Start 02/06/19 at 05:30 Acetaminophen (Tylenol Tab) 650 mg Q6H PRN PO .PAIN 1-3 OR TEMP Last administered on 02/06/19at 21:57; Admin Dose 650 MG; Start 02/06/19 at 05:30 Acetaminophen/ Hydrocodone Bitart ([place] (5/325)) 1 tab Q6H PRN PO .MOD PAIN 4- 6 Last administered on 02/06/19at 21:57; Admin Dose 1 TAB; Start 02/06/19 at 05:30 Morphine Sulfate (morphine) 2 mg Q4H PRN IV .SEVERE PAIN 7-10; Start 02/06/19 at 05:30 Docusate Sodium (Colace) 100 mg Q12H PRN PO .CONSTIPATION; Start 02/06/19 at 05:30 Magnesium Hydroxide (Milk Of Mag) 30 ml DAILY PRN PO .CONSTIPATION; Start 02/06/19 at 05:30 Pantoprazole (Protonix Tab) 40 mg DAILY@06 PO Last administered on 02/07/19at 05:28; Admin Dose 40 MG; Start 02/06/19 at 06:00 Heparin Sodium (Porcine) (Heparin (5000 Units/1ml)) 5,000 unit Q12 SC Last administered on 02/06/19at 09:58; Admin Dose 5,000 UNIT; Start 02/06/19 at 09:00 Sodium Chloride 1,000 ml @ 75 mls/hr [id number] IV Last administered on 02/06/19at 18:06; Admin Dose 75 MLS/HR; Start 02/06/19 at 05:21 Lorazepam (Ativan) 0.5 mg Q6H PRN IV ANXIETY; Start 02/06/19 at 05:30 Albuterol/ Ipratropium (Duoneb) 3 ml Q4H RESP THERAPY PRN HHN SHORTNESS OF BREATH; Start 02/06/19 at 05:30 Piperacillin Sod/ Tazobactam Sod 100 ml @ 200 mls/hr Q6 IVPB Last administered on 02/07/19at 05:28; Admin Dose 200 MLS/HR; Start 02/06/19 at 12:00 Vancomycin HCl (Vanco Iv Per Pharmacy) VANCOMYCIN PER PHARMACY NOTE XX ; Start 02/06/19 at 05:30 Hydralazine HCl (Apresoline) 10 mg Q6H PRN IV ELEVATED BLOOD PRESSURE; Start 02/06/19 at 05:30 Clonidine (Catapres) 0.1 mg Q6H PRN PO ELEVATED SYSTOLIC BP; Start 02/06/19 at 05:30 Nitroglycerin (Nitroglycerin (Sl Tab) 0.4 Mg) 1 tab Q5M PRN SL ANGINA; Start 02/06/19 at 05:30 Ascorbic Acid (Vitamin C) 500 mg DAILY PO Last administered on 02/06/19at 09:52; Admin Dose 500 MG; Start 02/06/19 at 09:00 Famotidine (Pepcid) 20 mg Q12 PO Last administered on 02/06/19at 21:56; Admin Dose 20 MG; Start 02/06/19 at 09:00 Gabapentin (Neurontin) 100 mg TID PO Last administered on 02/06/19at 21:57; Admin Dose 100 MG; Start 02/06/19 at 09:00 Metoprolol Tartrate (Lopressor) 75 mg BID PO Last administered on 02/06/19 21:56; Admin Dose 75 MG; Start 02/06/19 at 09:00 Multivitamins Therapeutic (Theragran) 1 tab DAILY PO Last administered on 02/06/19at 09:52; Admin Dose 1 TAB; Start 02/06/19 at 09:00 Vancomycin HCl 100 ml @ 100 mls/hr Q12H IVPB Last administered on 02/07/19at 05:59; Admin Dose 100 MLS/HR; Start 02/06/19 at 18:00 Miscellaneous Information (*Rx Drug Level Order Reminder*) VANCO TROUGH @ 1,700 ON... 1700 ONCE XX ; Start 02/07/19 at 17:00; Stop 02/07/19 at 17:01 Miscellaneous Information Patients own medicat... BID@10,16 XX ; Start 02/06/19 at 16:00 Diagnostic Test (Pha) (Accu-Chek) 1 ea 02 XX ; Start 02/07/19 at 02:00 Insulin Glargine (Lantus) 20 units DAILY@0800 SC ; Start 02/06/19 at 15:30 Insulin Aspart (Novolog Insulin Pen) NOVOLOG *MILD* ALGORITHM WITH MEALS BEDTIME SC ; Start 02/06/19 at 18:00 Miscellaneous Information 1 ea NOTE XX ; Start 02/06/19 at 14:30 Glucose (Glutose) 15 gm Q15M PRN PO DECREASED GLUCOSE; Start 02/06/19 at 14:30 Glucose (Glutose) 22.5 gm Q15M PRN PO DECREASED GLUCOSE; Start 02/06/19 at 14:30 Dextrose (D50w Syringe) 25 ml Q15M PRN IV DECREASED GLUCOSE; Start 02/06/19 at 14:30 Dextrose (D50w Syringe) 50 ml Q15M PRN IV DECREASED GLUCOSE; Start 02/06/19 at 14:30 Glucagon (Glucagen) 1 mg Q15M PRN IM DECREASED GLUCOSE; Start 02/06/19 at 14:30 Glucose (Glutose) 15 gm Q15M PRN BUCCAL DECREASED GLUCOSE; Start 02/06/19 at 14:30 Collagenase (Santyl) 1 applic DAILY TOP ; Start 02/06/19 at 18:30 Collagenase (Santyl) 1 applic PRN PRN TOP WHEN SOILED; Start 02/06/19 at 18:30 Mupirocin (Bactroban) 1 applic BID TOP ; Start 02/07/19 at 10:00 Metformin HCl (Glucophage) 500 mg BID WITH MEALS PO ; Start 02/07/19 at 09:30 SAMUEL CAMPOS NP Feb 07, 2019 10:04
--- NOTE | 2019-02-07 10:52 | CONS ---
Assessment/Plan Assessment/Plan Hospital Course (Demo Recall) 1. Multiple wounds: -debridement -local care -frequent turning and off-loading -low air loss mattress -vitamin c -short term zinc -optimize nutrition -bilateral LE wounds: per podiatry 2. Osteomyelitis BLE -abx per ID 3. Bacteremia: -abx per sensi's > per ID 4. Diabetes: hga1c: 6.5 -glucose optimization 5. Diabetic neuropathy -safety precs (ensure no lines/tubes, etc on skin) -diabetes optimization 6. Hypertension -med mgt 7. Depression -psych optimization 8. Hypochromic anemia -monitor and tx as needed 9. Hypokalemia: -replete and monitor 10. Hypocalcemia: likely multifactorial -nutrition otiization -treat infections 11. Homelessness -social work therapist consult Thank you. Patient seen and examined in collaboration with Dr. Kj Moran Consultation Date/Type/Reason Admit Date/Time Date of Consultation: Feb 07, 2019 Type of Consult surgical Reason for Consultation wounds Requesting Provider: MASOUD SOLANO DPM Date/Time of Note DATE: 02/07/19 TIME: 10:36 Hx of Present Illness Silver Mays is a 63 yo man with multiple comorbidities who presents with known multiple diabetic ulcers in bilateral lower extremities which have reportedly been worsening with increased drainage. He is known to have osteomyelitis of the lower extremities. He is currently on antibiotic therapy and was evaluated by podiatry. No recent fevers, chills, congested cough, vomiting diarrhea, sz, rash, cp, palpitations. He is also known to have buttock wounds, general surgery was asked to evaluate. 12 point ros was performed and is negative except as stated in hpi. Past Medical History Adult-onset diabetes mellitus Diabetic ulcers Diabetic neuropathy Left hip surgery after a fall Hypertension Depression sacral decubitus ulcers osteomyelitis anemia incontinence Home Meds Active Scripts [vancomycin pharm] No Conflict Check, for 40 Days Prov:CAMPOS,SAMUEL V. SODA MAKER 01/24/19 Ceftriaxone Na/Dextrose,Iso (Ceftriaxone 1 gm Piggyback) 1 Gm/50 Ml Froz.piggy, 1 GM IV DAILY for 40 Days Prov:CAMPOS,SAMUEL V. SODA MAKER 01/24/19 Gabapentin* (Gabapentin*) 100 Mg Capsule, 100 MG PO TID, #90 CAP Prov:CAMPOS,SAMUEL V. SODA MAKER 01/24/19 Balsam [place]/Dugger Oil (Venelex Ointment) 60 Gm Oint..gm., 1 APPLIC TOP BID, #1 TUB Bilateral sacral wounds Prov:CAMPOSCAMILLEA V. SODA MAKER 01/24/19 Sodium Hypochlorite (Di-Dak-[place]) 473 Ml Solution, 1 APPLIC TP DAILY, #1 BOTTLE Cleanse with Dakin solution bilateral feet, apply Betadine dressing 4 x 4 and then wrapped with Kerlix/Ben wrap daily. Prov:CAMPOS,SAMUEL V. SODA MAKER 01/24/19 Multivitamins* (Theragran*) 1 Tab Tab, 1 TAB PO DAILY, #30 TAB Prov:CAMPOS,SAMUEL V. SODA MAKER 01/24/19 Ascorbic Acid (Vitamin C) 500 Mg Tab, 500 MG PO DAILY, #30 TAB Prov:CAMPOS,SAMUEL V. SODA MAKER 01/24/19 Metoprolol Tartrate* (Lopressor*) 25 Mg Tablet, 75 MG PO BID, #180 TAB Prov:CAMPOSSAMUEL V. SODA MAKER 01/24/19 Lisinopril* (Lisinopril*) 40 Mg Tablet, 40 MG PO DAILY, #30 TAB Prov:CAMPOS,SAMUEL V. SODA MAKER 01/24/19 Famotidine* (Famotidine*) 20 Mg Tablet, 20 MG PO Q12 for 10 Days, TAB Prov:CARO CORONEL MD 10/23/18 Reported Medications Hydrocodone/Acetaminophen ([place] 10-325 Tablet) 1 Each Tablet, 1 EACH PO, TAB 10/22/18 Metformin* (Glucophage*) 1,000 Mg Tablet, 1000 MG PO WITH BREAKFAST DINNE, #30 TAB 10/22/18 Medications Current Medications IV Flush (NS 3 ml) 3 ml PER PROTOCOL IV ; Start 02/06/19 at 05:30 Ondansetron HCl (Zofran Inj) 4 mg Q6H PRN IV NAUSEA/VOMITING; Start 02/06/19 at 05:30 Acetaminophen (Tylenol Tab) 650 mg Q6H PRN PO .PAIN 1-3 OR TEMP Last administered on 02/06/19at 21:57; Admin Dose 650 MG; Start 02/06/19 at 05:30 Acetaminophen/ Hydrocodone Bitart ([place] (5/325)) 1 tab Q6H PRN PO .MOD PAIN 4- 6 Last administered on 02/07/19at 09:49; Admin Dose 1 TAB; Start 02/06/19 at 05:30 Morphine Sulfate (morphine) 2 mg Q4H PRN IV .SEVERE PAIN 7-10; Start 02/06/19 at 05:30 Docusate Sodium (Colace) 100 mg Q12H PRN PO .CONSTIPATION; Start 02/06/19 at 05:30 Magnesium Hydroxide (Milk Of Mag) 30 ml DAILY PRN PO .CONSTIPATION; Start 02/06 at 05:30 Pantoprazole (Protonix Tab) 40 mg DAILY@06 PO Last administered on 02/07/19at 05:28; Admin Dose 40 MG; Start 02/06/19 at 06:00 Sodium Chloride 1,000 ml @ 75 mls/hr [id number] IV Last administered on 02/06/19at 18:06; Admin Dose 75 MLS/HR; Start 02/06/19 at 05:21 Lorazepam (Ativan) 0.5 mg Q6H PRN IV ANXIETY; Start 02/06/19 at 05:30 Albuterol/ Ipratropium (Duoneb) 3 ml Q4H RESP THERAPY PRN HHN SHORTNESS OF BREATH; Start 02/06/19 at 05:30 Piperacillin Sod/ Tazobactam Sod 100 ml @ 200 mls/hr Q6 IVPB Last administered on 02/07/19at 05:28; Admin Dose 200 MLS/HR; Start 02/06/19 at 12:00 Vancomycin HCl (Vanco Iv Per Pharmacy) VANCOMYCIN PER PHARMACY NOTE XX ; Start 02/06/19 at 05:30 Hydralazine HCl (Apresoline) 10 mg Q6H PRN IV ELEVATED BLOOD PRESSURE; Start 02/06/19 at 05:30 Clonidine (Catapres) 0.1 mg Q6H PRN PO ELEVATED SYSTOLIC BP; Start 02/06/19 at 05:30 Nitroglycerin (Nitroglycerin (Sl Tab) 0.4 Mg) 1 tab Q5M PRN SL ANGINA; Start 02/06/19 at 05:30 Ascorbic Acid (Vitamin C) 500 mg DAILY PO Last administered on 02/07/19at 09:49; Admin Dose 500 MG; Start 02/06/19 at 09:00 Famotidine (Pepcid) 20 mg Q12 PO Last administered on 02/07/19at 09:50; Admin Dose 20 MG; Start 02/06/19 at 09:00 Gabapentin (Neurontin) 100 mg TID PO Last administered on 02/07/19at 09:50; Admin Dose 100 MG; Start 02/06/19 at 09:00 Metoprolol Tartrate (Lopressor) 75 mg BID PO Last administered on 02/07/19at 09:50; Admin Dose 75 MG; Start 02/06/19 at 09:00 Multivitamins Therapeutic (Theragran) 1 tab DAILY PO Last administered on 02/07/19at 09:50; Admin Dose 1 TAB; Start 02/06/19 at 09:00 Vancomycin HCl 100 ml @ 100 mls/hr Q12H IVPB Last administered on 02/07/19at 05:59; Admin Dose 100 MLS/HR; Start 02/06/19 at 18:00 Miscellaneous Information (*Rx Drug Level Order Reminder*) VANCO TROUGH @ 1,700 ON... 1700 ONCE XX ; Start 02/07/19 at 17:00; Stop 02/07/19 at 17:01 Miscellaneous Information Patients own medicat... BID@10,16 XX ; Start 02/06/19 at 16:00 Diagnostic Test (Pha) (Accu-Chek) 1 ea 02 XX ; Start 02/07/19 at 02:00 Insulin Glargine (Lantus) 20 units DAILY@0800 SC ; Start 02/06/19 at 15:30 Insulin Aspart (Novolog Insulin Pen) NOVOLOG *MILD* ALGORITHM WITH MEALS BEDTIME SC ; Start 02/06/19 at 18:00 Miscellaneous Information 1 ea NOTE XX ; Start 02/06/19 at 14:30 Glucose (Glutose) 15 gm Q15M PRN PO DECREASED GLUCOSE; Start 02/06/19 at 14:30 Glucose (Glutose) 22.5 gm Q15M PRN PO DECREASED GLUCOSE; Start 02/06/19 at 14:30 Dextrose (D50w Syringe) 25 ml Q15M PRN IV DECREASED GLUCOSE; Start 02/06/19 at 14:30 Dextrose (D50w Syringe) 50 ml Q15M PRN IV DECREASED GLUCOSE; Start 02/06/19 at 14:30 Glucagon (Glucagen) 1 mg Q15M PRN IM DECREASED GLUCOSE; Start 02/06/19 at 14:30 Glucose (Glutose) 15 gm Q15M PRN BUCCAL DECREASED GLUCOSE; Start 02/06/19 at 14:30 Collagenase (Santyl) 1 applic DAILY TOP Last administered on 02/07/19at 09:51; Admin Dose 1 APPLIC; Start 02/06/19 at 18:30 Collagenase (Santyl) 1 applic PRN PRN TOP WHEN SOILED; Start 02/06/19 at 18:30 Mupirocin (Bactroban) 1 applic BID TOP ; Start 02/07/19 at 10:00 Lisinopril (Zestril) 40 mg DAILY PO ; Start 02/08/19 at 09:00 Metformin HCl (Glucophage) 1,000 mg WITH BREAKFAST DINNE PO ; Start 02/07/19 at 18:00 Clotrimazole (Lotrimin Cr) 1 applic BID TOP ; Start 02/07/19 at 11:30 Allergies: Coded Allergies: No Known Allergy (Unverified , 10/22/18) Past Surgical History Past Surgical Hx: other (Left hip surgery, lower extremity debridement) Family History Significant Family History: no pertinent family hx Social History Alcohol Use: occasionally Smoking Status: Former smoker Drug Use: none Exam/Review of Systems Exam Vitals Vital Signs Date Temp Pulse Resp B/P (MAP) Pulse Ox O2 O2 Flow FiO2 Time Delivery Rate 02/07/19 97.9 74 18 181/81 97 08:00 (114) 02/06/19 Room Air 08:39 Intake and Output 02/06/19 02/06/19 02/07/19 1515:00 23:00 07:00 IntakeIntake Total 100 ml 875 ml OutputOutput Total 500 ml BalanceBalance 100 ml 375 ml Constitutional: alert, oriented, well developed Psych: nl mood/affect, anxiety (min) Head: normocephalic, atraumatic Eyes: nl conjunctiva, EOMI, nl lids, nl sclera ENMT: nl external ears & nose, nl lips & teeth, mucosa pink and moist Neck: supple, non-tender; No jvd Respiratory: normal air movement; No congested cough Cardiovascular: regular rate and rhythm, nl pulses; No edema Gastrointestinal: soft, non-tender Genitourinary - Male: nl penis, nl scrotum Musculoskeletal: nl extremities to inspection, other (contracted BLE) Extremities: normal pulses; No pitting pedal edema Neurological: nl mental status, nl speech, nl strength Skin: other (multiple wounds: bilat buttock: min drainage/erythema); No rash or lesions Lymph: No nl lymph nodes Results Result Diagram: 02/07/19 0650 02/07/19 0649 Results 24hrs Laboratory Tests Test 02/06/19 14:24 02/06/19 17:16 02/06/19 18:07 02/06/19 21:53 Lactic Acid Level 0.9 1.0 Bedside Glucose 146 225 H Test 02/06/19 23:15 02/07/19 06:49 02/07/19 06:50 02/07/19 08:20 Lactic Acid Level 0.9 Sodium Level 140 Potassium Level 3.4 L Chloride Level 107 Carbon Dioxide Level 27 Anion Gap 6 Blood Urea Nitrogen 22 H Creatinine 1.04 Est Glomerular Filtrat > 60 Rate mL/min Glucose Level 102 # Calcium Level 8.2 L Phosphorus Level 3.7 Magnesium Level 1.8 Triglycerides Level 49 Cholesterol Level 119 LDL Cholesterol, 68 Calculated HDL Cholesterol 41 Cholesterol/HDL Ratio 2.9 Thyroid Stimulating 4.170 Hormone (TSH) White Blood Count 3.7 #L Red Blood Count 2.90 L Hemoglobin 7.5 L Hematocrit 25.6 L Mean Corpuscular Volume 88.3 Mean Corpuscular 25.9 L Hemoglobin Mean Corpuscular 29.3 L Hemoglobin Concent Red Cell Distribution 14.6 H Width Platelet Count 352 Mean Platelet Volume 10.3 Immature Granulocytes % 0.300 Neutrophils % 59.2 Lymphocytes % 25.0 Monocytes % 9.4 Eosinophils % 4.8 Basophils % 1.3 Nucleated Red Blood 0.0 Cells % Immature Granulocytes # 0.010 Neutrophils # 2.2 Lymphocytes # 0.9 Monocytes # 0.4 Eosinophils # 0.2 Basophils # 0.1 Nucleated Red Blood 0.0 Cells # Hemoglobin A1c 6.5 H Bedside Glucose 99 Medications Medication Current Medications IV Flush (NS 3 ml) 3 ml PER PROTOCOL IV ; Start 02/06/19 at 05:30 Ondansetron HCl (Zofran Inj) 4 mg Q6H PRN IV NAUSEA/VOMITING; Start 02/06/19 at 05:30 Acetaminophen (Tylenol Tab) 650 mg Q6H PRN PO .PAIN 1-3 OR TEMP Last administered on 02/06/19at 21:57; Admin Dose 650 MG; Start 02/06/19 at 05:30 Acetaminophen/ Hydrocodone Bitart ([place] (5/325)) 1 tab Q6H PRN PO .MOD PAIN 4- 6 Last administered on 02/07/19at 09:49; Admin Dose 1 TAB; Start 02/06/19 at 05:30 Morphine Sulfate (morphine) 2 mg Q4H PRN IV .SEVERE PAIN 7-10; Start 02/06/19 at 05:30 Docusate Sodium (Colace) 100 mg Q12H PRN PO .CONSTIPATION; Start 02/06/19 at 05:30 Magnesium Hydroxide (Milk Of Mag) 30 ml DAILY PRN PO .CONSTIPATION; Start 02/06/19 at 05:30 Pantoprazole (Protonix Tab) 40 mg DAILY@06 PO Last administered on 02/07/19at 05:28; Admin Dose 40 MG; Start 02/06/19 at 06:00 Sodium Chloride 1,000 ml @ 75 mls/hr [id number] IV Last administered on 02/06/19at 18:06; Admin Dose 75 MLS/HR; Start 02/06/19 at 05:21 Lorazepam (Ativan) 0.5 mg Q6H PRN IV ANXIETY; Start 02/06/19 at 05:30 Albuterol/ Ipratropium (Duoneb) 3 ml Q4H RESP THERAPY PRN HHN SHORTNESS OF BREATH; Start 02/06/19 at 05:30 Piperacillin Sod/ Tazobactam Sod 100 ml @ 200 mls/hr Q6 IVPB Last administered on 02/07/19at 05:28; Admin Dose 200 MLS/HR; Start 02/06/19 at 12:00 Vancomycin HCl (Vanco Iv Per Pharmacy) VANCOMYCIN PER PHARMACY NOTE XX ; Start 02/06/19 at 05:30 Hydralazine HCl (Apresoline) 10 mg Q6H PRN IV ELEVATED BLOOD PRESSURE; Start 02/06/19 at 05:30 Clonidine (Catapres) 0.1 mg Q6H PRN PO ELEVATED SYSTOLIC BP; Start 02/06/19 at 05:30 Nitroglycerin (Nitroglycerin (Sl Tab) 0.4 Mg) 1 tab Q5M PRN SL ANGINA; Start 02/06/19 at 05:30 Ascorbic Acid (Vitamin C) 500 mg DAILY PO Last administered on 02/07/19at 09:49; Admin Dose 500 MG; Start 02/06/19 at 09:00 Famotidine (Pepcid) 20 mg Q12 PO Last administered on 02/07/19at 09:50; Admin Dose 20 MG; Start 02/06/19 at 09:00 Gabapentin (Neurontin) 100 mg TID PO Last administered on 02/07/19at 09:50; Admin Dose 100 MG; Start 02/06/19 at 09:00 Metoprolol Tartrate (Lopressor) 75 mg BID PO Last administered on 02/07/19at 09:50; Admin Dose 75 MG; Start 02/06/19 at 09:00 Multivitamins Therapeutic (Theragran) 1 tab DAILY PO Last administered on 02/07/19at 09:50; Admin Dose 1 TAB; Start 02/06/19 at 09:00 Vancomycin HCl 100 ml @ 100 mls/hr Q12H IVPB Last administered on 02/07/19at 05:59; Admin Dose 100 MLS/HR; Start 02/06/19 at 18:00 Miscellaneous Information (*Rx Drug Level Order Reminder*) VANCO TROUGH @ 1,700 ON... 1700 ONCE XX ; Start 02/07/19 at 17:00; Stop 02/07/19 at 17:01 Miscellaneous Information Patients own medicat... BID@10,16 XX ; Start 02/06/19 at 16:00 Diagnostic Test (Pha) (Accu-Chek) 1 ea 02 XX ; Start 02/07/19 at 02:00 Insulin Glargine (Lantus) 20 units DAILY@0800 SC ; Start 02/06/19 at 15:30 Insulin Aspart (Novolog Insulin Pen) NOVOLOG *MILD* ALGORITHM WITH MEALS BEDTIME SC ; Start 02/06/19 at 18:00 Miscellaneous Information 1 ea NOTE XX ; Start 02/06/19 at 14:30 Glucose (Glutose) 15 gm Q15M PRN PO DECREASED GLUCOSE; Start 02/06/19 at 14:30 Glucose (Glutose) 22.5 gm Q15M PRN PO DECREASED GLUCOSE; Start 02/06/19 at 14:30 Dextrose (D50w Syringe) 25 ml Q15M PRN IV DECREASED GLUCOSE; Start 02/06/19 at 14:30 Dextrose (D50w Syringe) 50 ml Q15M PRN IV DECREASED GLUCOSE; Start 02/06/19 at 14:30 Glucagon (Glucagen) 1 mg Q15M PRN IM DECREASED GLUCOSE; Start 02/06/19 at 14:30 Glucose (Glutose) 15 gm Q15M PRN BUCCAL DECREASED GLUCOSE; Start 02/06/19 at 14:30 Collagenase (Santyl) 1 applic DAILY TOP Last administered on 02/07/19at 09:51; Admin Dose 1 APPLIC; Start 02/06/19 at 18:30 Collagenase (Santyl) 1 applic PRN PRN TOP WHEN SOILED; Start 02/06/19 at 18:30 Mupirocin (Bactroban) 1 applic BID TOP ; Start 02/07/19 at 10:00 Lisinopril (Zestril) 40 mg DAILY PO ; Start 02/08/19 at 09:00 Metformin HCl (Glucophage) 1,000 mg WITH BREAKFAST DINNE PO ; Start 02/07/19 at 18:00 Clotrimazole (Lotrimin Cr) 1 applic BID TOP ; Start 02/07/19 at 11:30 CALLY NOEL NP Feb 07, 2019 10:48
--- NOTE | 2019-02-07 11:29 | OPR ---
Date/Time of Note Date/Time of Note DATE: 02/07/19 TIME: 11:23 Operative Report Preoperative Diagnosis right buttock pressure ulcer with debris and necrotic tissue left buttock pressure ulcer with debris and necrotic tissue Postoperative Diagnosis right buttock pressure ulcer with debris and necrotic tissue, including skin and subcutaneous, 4x4 cm left buttock pressure ulcer with debris and necrotic tissue, including skin and subcutaneous, 4x3cm Operation/Procedure Performed excisional debridement of right buttock skin, and subcutaneous, 4x4cm excisional debridement of left buttock skin and subcutaneous, 4x3 cm Surgeon see signature line Vice President Of Consulting Services none Anesthesia Type: other (none) Estimated Blood Loss: 0 - 10 ml's Transfusion none Specimen right and left wound cultures Grafts/Implants none Complications none Procedure Description risks, benefits, alternatives discussed with and agreed upon with patient. Patient in his own bed right lateral decubitus. Area prepped in sterile fashion. Timeout was performed. Using curette and scalpel, the necrotic tissue and debris of the left buttock skin and subcutaneous were debrided to healthier tissue. Wound was irrigated with iodine. Dry dressing was placed. Patient turned to left lateral decubitus. Using curette and scalpel, the necrotic tissue and debris of the right buttock skin and subcutaneous were debrided to healthier tissue. Wound was irrigated with iodine. Dry dressing was placed CALLY NOEL NP Feb 07, 2019 11:29
[2019-02-07] MEDS: CLOTRIMAZOLE 1% 30 GM CR TOP SCH ×2 (11:44→20:43)
[2019-02-07] MEDS: MUPIROCIN 2% 22 GM OINT TOP SCH ×2 (11:44→20:43)
[2019-02-07] MEDS: SOD CHLORIDE 0.45% 1,000 ML IV SCH ×2 (11:44→21:21)
--- NOTE | 2019-02-07 13:51 | CONS ---
DATE OF ADMISSION: 02/06/2019 DATE OF CONSULTATION: 02/07/2019 REASON FOR CONSULTATION: Bilateral foot ulceration, admitted through the ER for concerns of worsenin g ulcerations. 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 The patient with multi ple social issues including being homeless and lack of access to care. The patient has diabetes. Hi story of smoking. In addition to the foot ulcers he has sacral decubitus wounds. Deep tissue injury to the left heel. PAST MEDICAL HISTORY: Diabetes type 2, diabetic foot ulcerations, diabetic neuropathy, left hip surg felicitas, hypertension, depression. SOCIAL HISTORY: Occasional smoker. Social alcohol. Denies any recreational drug use. ALLERGIES: None. MEDICATIONS: Includes: 1. Vancomycin. 2. Zosyn. PHYSICAL EXAMINATION: VITAL SIGNS: Temperature 98.2, pulse 72, respiratory 18, blood pressure is 133/68, pulse ox is 96. GENERAL: The patient is alert, oriented in the lateral decubitus position with knee flexion. The pa tient with multiple superficial wounds located over the medial left foot, left distal hallux and dors al aspect of the right ankle, skin, subcutaneous atrophy scarring, skin dorsal aspect bilateral feet, presence of tinea. Absent protective sensations. No lymphangitis. LABORATORIES: Blood cultures, no growth. Wound cultures from 01/18/2019, right foot positive for MR SA and the left foot positive for MRSA. PLAN: Clinically ulcerations are superficial, do not probe to bone. Improved since last hospitaliza tion. At this time, the wounds appear dry. No exudate available for culture, but can obtain if ther e is exudate. Would benefit from general surgery consultation. May need debridement of the sacral u lceration. Reviewed noninvasive arterial studies from last hospitalization. Recommend decubitus yaquelin l precautions at high risk given immobility and patient currently on vancomycin and Zosyn. The patie nt will need case management assistance. We will continue to monitor. No surgery planned at this time. Dictated By: MASOUD GROVER/SAVANNAH Conf#: [id number] DID#: [id number] CC: KATELYN LOCKE;*EndCC*
[2019-02-07 14:00] VITALS: BP 189/91; PULSE 72; RESP 18
[2019-02-07] MEDS: metFORMIN 500 MG TAB PO SCH ×2 (17:24→20:26)
--- NOTE | 2019-02-07 18:28 | CONS ---
Assessment/Plan Assessment/Plan Hospital Course (Demo Recall) 1300 no acute changes patient is sleeping looks comfortable. No fevers. Blood culture on admission grew staph species 1 out of 2 sets WBC 3.7 no shift no bands BUN 22 creatinine 1.04 Antimicrobials: Vanco Zosyn ALLERGIES: HE IS NOT ALLERGIC TO ANY ANTIBIOTICS. PHYSICAL EXAMINATION: GENERAL: Well-nourished, well-developed elderly -[place] man who is in no distress. HEENT: Head is atraumatic, normocephalic. Sclerae are anicteric. Buccal mucosa is dry. NECK: Supple. CHEST: Rise symmetrical. Breath sounds diminished to bases. HEART: S1, S2. ABDOMEN: Soft. Bowel tones are present. EXTREMITIES: With bilateral lower extremities dressing intact. Assessment: 1. Bilateral lower extremities diabetic ulcerations 2. Left foot osteomyelitis 3. Diabetes with diabetic neuropathy 4. Bilateral buttocks ulcerations, status post debridement 5. Coag negative staph bacteremia consistent with contaminant Plan: Patient was discharged on January 26, he supposed to complete 8 weeks of vancomycin and 6 weeks of Rocephin for osteomyelitis, he is clinically stable, will keep him on current antibiotics, await for wound cultures, continue wound care per podiatry and surgical teams Consultation Date/Type/Reason Admit Date/Time Feb 06, 2019 at 03:18 Initial Consult Date 02/07/19 Type of Consult id Requesting Provider: MASOUD SOLANO DPM Date/Time of Note DATE: 02/07/19 TIME: 18:26 Exam/Review of Systems Exam Vitals Vital Signs Date Temp Pulse Resp B/P (MAP) Pulse Ox O2 O2 Flow FiO2 Time Delivery Rate 02/07/19 98.4 72 18 189/91 98 14:00 (123) 02/06/19 Room Air 08:39 Intake and Output 02/06/19 02/06/19 02/07/19 1515:00 23:00 07:00 IntakeIntake Total 100 ml 875 ml OutputOutput Total 500 ml BalanceBalance 100 ml 375 ml Results Result Diagram: 02/07/19 0650 02/07/19 0649 Results 24hrs Laboratory Tests Test 02/06/19 21:53 02/06/19 23:15 02/07/19 06:49 02/07/19 06:50 Bedside Glucose 225 H Lactic Acid Level 0.9 Sodium Level 140 Potassium Level 3.4 L Chloride Level 107 Carbon Dioxide Level 27 Anion Gap 6 Blood Urea Nitrogen 22 H Creatinine 1.04 Est Glomerular Filtrat > 60 Rate mL/min Glucose Level 102 # Calcium Level 8.2 L Phosphorus Level 3.7 Magnesium Level 1.8 Triglycerides Level 49 Cholesterol Level 119 LDL Cholesterol, 68 Calculated HDL Cholesterol 41 Cholesterol/HDL Ratio 2.9 Thyroid Stimulating 4.170 Hormone (TSH) White Blood Count 3.7 #L Red Blood Count 2.90 L Hemoglobin 7.5 L Hematocrit 25.6 L Mean Corpuscular Volume 88.3 Mean Corpuscular 25.9 L Hemoglobin Mean Corpuscular 29.3 L Hemoglobin Concent Red Cell Distribution 14.6 H Width Platelet Count 352 Mean Platelet Volume 10.3 Immature Granulocytes % 0.300 Neutrophils % 59.2 Lymphocytes % 25.0 Monocytes % 9.4 Eosinophils % 4.8 Basophils % 1.3 Nucleated Red Blood 0.0 Cells % Immature Granulocytes # 0.010 Neutrophils # 2.2 Lymphocytes # 0.9 Monocytes # 0.4 Eosinophils # 0.2 Basophils # 0.1 Nucleated Red Blood 0.0 Cells # Hemoglobin A1c 6.5 H Test 02/07/19 08:20 02/07/19 12:19 02/07/19 16:59 Bedside Glucose 99 179 Vancomycin Level Trough 15.4 Medications Medication Current Medications IV Flush (NS 3 ml) 3 ml PER PROTOCOL IV ; Start 02/06/19 at 05:30 Ondansetron HCl (Zofran Inj) 4 mg Q6H PRN IV NAUSEA/VOMITING; Start 02/06/19 at 05:30 Acetaminophen (Tylenol Tab) 650 mg Q6H PRN PO .PAIN 1-3 OR TEMP Last administered on 02/06/19at 21:57; Admin Dose 650 MG; Start 02/06/19 at 05:30 Acetaminophen/ Hydrocodone Bitart ([place] (5/325)) 1 tab Q6H PRN PO .MOD PAIN 4- 6 Last administered on 02/07/19at 15:53; Admin Dose 1 TAB; Start 02/06/19 at 05:30 Morphine Sulfate (morphine) 2 mg Q4H PRN IV .SEVERE PAIN 7-10; Start 02/06/19 at 05:30 Docusate Sodium (Colace) 100 mg Q12H PRN PO .CONSTIPATION; Start 02/06/19 at 05:30 Magnesium Hydroxide (Milk Of Mag) 30 ml DAILY PRN PO .CONSTIPATION; Start 02/06/19 at 05:30 Pantoprazole (Protonix Tab) 40 mg DAILY@06 PO Last administered on 02/07/19at 05:28; Admin Dose 40 MG; Start 02/06/19 at 06:00 Sodium Chloride 1,000 ml @ 75 mls/hr [id number] IV Last administered on 02/07/19at 11:44; Admin Dose 75 MLS/HR; Start 02/06/19 at 05:21 Lorazepam (Ativan) 0.5 mg Q6H PRN IV ANXIETY; Start 02/06/19 at 05:30 Albuterol/ Ipratropium (Duoneb) 3 ml Q4H RESP THERAPY PRN HHN SHORTNESS OF BREATH; Start 02/06/19 at 05:30 Piperacillin Sod/ Tazobactam Sod 100 ml @ 200 mls/hr Q6 IVPB Last administered on 02/07/19at 17:25; Admin Dose 200 MLS/HR; Start 02/06/19 at 12:00 Vancomycin HCl (Vanco Iv Per Pharmacy) VANCOMYCIN PER PHARMACY NOTE XX ; Start 02/06/19 at 05:30 Hydralazine HCl (Apresoline) 10 mg Q6H PRN IV ELEVATED BLOOD PRESSURE; Start 02/06/19 at 05:30 Clonidine (Catapres) 0.1 mg Q6H PRN PO ELEVATED SYSTOLIC BP Last administered on 02/07/19at 15:54; Admin Dose 0.1 MG; Start 02/06/19 at 05:30 Nitroglycerin (Nitroglycerin (Sl Tab) 0.4 Mg) 1 tab Q5M PRN SL ANGINA; Start 02/06/19 at 05:30 Ascorbic Acid (Vitamin C) 500 mg DAILY PO Last administered on 02/07/19at 09:49; Admin Dose 500 MG; Start 02/06/19 at 09:00 Famotidine (Pepcid) 20 mg Q12 PO Last administered on 02/07/19at 09:50; Admin Dose 20 MG; Start 02/06/19 at 09:00 Gabapentin (Neurontin) 100 mg TID PO Last administered on 02/07/19at 12:11; Admin Dose 100 MG; Start 02/06/19 at 09:00 Metoprolol Tartrate (Lopressor) 75 mg BID PO Last administered on 02/07/19at 09:50; Admin Dose 75 MG; Start 02/06/19 at 09:00 Multivitamins Therapeutic (Theragran) 1 tab DAILY PO Last administered on 02/07/19at 09:50; Admin Dose 1 TAB; Start 02/06/19 at 09:00 Vancomycin HCl 100 ml @ 100 mls/hr Q12H IVPB Last administered on 02/07/19at 05:59; Admin Dose 100 MLS/HR; Start 02/06/19 at 18:00 Miscellaneous Information Patients own medicat... BID@10,16 XX ; Start 02/06/19 at 16:00 Diagnostic Test (Pha) (Accu-Chek) 1 ea 02 XX ; Start 02/07/19 at 02:00 Insulin Glargine (Lantus) 20 units DAILY@0800 SC ; Start 02/06/19 at 15:30 Insulin Aspart (Novolog Insulin Pen) NOVOLOG *MILD* ALGORITHM WITH MEALS BEDTIME SC ; Start 02/06/19 at 18:00 Miscellaneous Information 1 ea NOTE XX ; Start 02/06/19 at 14:30 Glucose (Glutose) 15 gm Q15M PRN PO DECREASED GLUCOSE; Start 02/06/19 at 14:30 Glucose (Glutose) 22.5 gm Q15M PRN PO DECREASED GLUCOSE; Start 02/06/19 at 14:30 Dextrose (D50w Syringe) 25 ml Q15M PRN IV DECREASED GLUCOSE; Start 02/06/19 at 14:30 Dextrose (D50w Syringe) 50 ml Q15M PRN IV DECREASED GLUCOSE; Start 02/06/19 at 14:30 Glucagon (Glucagen) 1 mg Q15M PRN IM DECREASED GLUCOSE; Start 02/06/19 at 14:30 Glucose (Glutose) 15 gm Q15M PRN BUCCAL DECREASED GLUCOSE; Start 02/06/19 at 14:30 Collagenase (Santyl) 1 applic DAILY TOP Last administered on 02/07/19at 09:51; Admin Dose 1 APPLIC; Start 02/06/19 at 18:30 Collagenase (Santyl) 1 applic PRN PRN TOP WHEN SOILED; Start 02/06/19 at 18:30 Mupirocin (Bactroban) 1 applic BID TOP Last administered on 02/07/19at 11:44; Admin Dose 1 APPLIC; Start 02/07/19 at 10:00 Lisinopril (Zestril) 40 mg DAILY PO ; Start 02/08/19 at 09:00 Metformin HCl (Glucophage) 1,000 mg WITH BREAKFAST DINNE PO ; Start 02/07/19 at 18:00 Clotrimazole (Lotrimin Cr) 1 applic BID TOP Last administered on 02/07/19at 11:44; Admin Dose 1 APPLIC; Start 02/07/19 at 11:30 CHANTALE RAMIREZ NP Feb 07, 2019 18:28
[2019-02-07 20:10] VITALS: BP 192/96; PULSE 75; RESP 16
[2019-02-08] MEDS: PIPER-TAZO 3.375 GM IV (PMX) 100 ML IVPB SCH ×4 (00:09→17:29)
[2019-02-08] MEDS: ACCU-CHEK XX SCH (02:00)
[2019-02-08] MEDS: PANTOPRAZOLE (EC) 40 MG TAB PO SCH (05:34)
[2019-02-08 07:08] VITALS: BP 175/87; PULSE 75; RESP 18
[2019-02-08] MEDS: INSULIN ASPART [NOVOLOG] 3 ML PEN SC SCH ×4 (08:00→20:29)
[2019-02-08] MEDS: INSULIN GLARGINE [LANTus] (100 UNITS/ML) SYG SC SCH ×2 (08:00→08:40)
[2019-02-08] MEDS: metFORMIN 500 MG TAB PO SCH ×2 (08:38→17:29)
[2019-02-08] MEDS: GABAPENTIN 100 MG CAP PO SCH ×3 (08:41→20:29)
[2019-02-08] MEDS: FAMOTIDINE 20 MG TAB PO SCH ×2 (08:41→20:29)
[2019-02-08] MEDS: METOPROLOL 25 MG TAB PO SCH ×2 (08:41→20:30)
[2019-02-08] MEDS: ASCORBIC ACID 500 MG TAB PO SCH (08:42)
[2019-02-08] MEDS: LISINOPRIL 20 MG TAB PO SCH (08:42)
[2019-02-08] MEDS: MULTIVITAMINS THERAPEUTIC TAB PO SCH (08:42)
[2019-02-08] MEDS: MUPIROCIN 2% 22 GM OINT TOP SCH ×2 (08:43→20:33)
[2019-02-08] MEDS: COLLAGENASE 5 GM (UD JAR) TOP SCH (08:43)
[2019-02-08] MEDS: CLOTRIMAZOLE 1% 30 GM CR TOP SCH ×2 (08:43→20:33)
[2019-02-08] MEDS: SOD CHLORIDE 0.45% 1,000 ML IV SCH (10:41)
[2019-02-08] MEDS: VANCOMYCIN 500 MG (PMX) 100 ML IVPB SCH ×2 (11:44→23:08)
--- NOTE | 2019-02-08 13:18 | PN ---
Date/Time of Note Date/Time of Note DATE: 02/08/19 TIME: 13:14 Assessment/Plan VTE Prophylaxis Risk score (from [facility] [place])>0 risk: 4 SCD applied (from [facility] [place]): No SCD contraindicated: bilateral LE trauma Pharmacological prophylaxis: heparin Lines/Catheters IV [facility] Type (from [facility]): Peripheral IV Urinary Cath still in place: Yes Reason Cath still needed: skin wounds contaminated by urine Assessment/Plan Problems: (1) Osteomyelitis of left foot Status: Chronic Comment: Antibiotics with guidance from infectious diseases. Qualifiers: Osteomyelitis type: chronic multifocal Qualified Codes: M86.372 - Chronic multifocal osteomyelitis, left ankle and foot (2) MRSA (methicillin resistant staph aureus) culture positive Status: Chronic Comment: Noted. Repeat cultures from this admission versus a few weeks ago are pending (3) PVD (peripheral vascular disease) Status: Chronic Comment: Noted. (4) Vitamin D deficiency Status: Chronic Comment: Noted. (5) Iron deficiency anemia Status: Chronic Comment: Noted and will replace Qualifiers: Iron deficiency anemia type: unspecified iron deficiency Qualified Codes: D50.9 - Iron deficiency anemia, unspecified (6) Sacral decubitus ulcer, stage III Status: Chronic Comment: As per general surgery (7) Contracture of muscles of both lower extremities Status: Chronic Comment: At this point in time trying to work-up his lumbosacral spine will be difficult since will be able to fit him inside the scanner with his contractures. Regrettably I believe that this is due to the duration of time not reversible (8) Essential hypertension Status: Chronic Comment: Adequate control (9) Diabetes mellitus type 2 in nonobese Status: Chronic Comment: Adequate glycemic control Result Diagram: 02/08/19 0646 02/08/19 0646 Results 24hrs Laboratory Tests Test 02/07/19 16:59 02/07/19 20:21 02/08/19 06:46 02/08/19 08:05 Vancomycin Level Trough 15.4 Bedside Glucose 152 104 White Blood Count 3.6 L Red Blood Count 2.98 L Hemoglobin 7.8 L Hematocrit 26.0 L Mean Corpuscular Volume 87.2 Mean Corpuscular 26.2 L Hemoglobin Mean Corpuscular 30.0 L Hemoglobin Concent Red Cell Distribution 14.4 Width Platelet Count 369 Mean Platelet Volume 10.4 Immature Granulocytes % 0.600 H Neutrophils % 62.6 Lymphocytes % 21.6 Monocytes % 9.3 Eosinophils % 5.1 Basophils % 0.8 Nucleated Red Blood 0.0 Cells % Immature Granulocytes # 0.020 Neutrophils # 2.2 Lymphocytes # 0.8 Monocytes # 0.3 Eosinophils # 0.2 Basophils # 0.0 Nucleated Red Blood 0.0 Cells # Sodium Level 141 Potassium Level 3.9 Chloride Level 110 Carbon Dioxide Level 24 Anion Gap 7 Blood Urea Nitrogen 20 Creatinine 1.04 Est Glomerular Filtrat > 60 Rate mL/min Glucose Level 87 Calcium Level 8.2 L Test 02/08/19 12:35 Bedside Glucose 101 Subjective 24 Hr Interval Summary Free Text/Dictation Patient reports that he is doing relatively well. He reaffirms that he is unable to straighten his legs. From his perspective he is never have any recollection of any type of imaging studies of his LS spine Constitutional: no complaints Respiratory: no complaints Cardiovascular: no complaints Gastrointestinal: no complaints Exam/Review of Systems Exam Vitals Vital Signs Date Temp Pulse Resp B/P (MAP) Pulse Ox O2 O2 Flow FiO2 Time Delivery Rate 02/08/19 98.3 75 18 175/87 97 Room Air 07:08 (116) Intake and Output 02/07/19 02/07/19 02/08/19 1515:00 23:00 07:00 IntakeIntake Total 400 ml 200 ml 750 ml BalanceBalance 400 ml 200 ml 750 ml Constitutional: alert, oriented Respiratory: clear to auscultation, normal air movement Cardiovascular: regular rate and rhythm, nl pulses Gastrointestinal: soft, nl liver, spleen, non-tender Musculoskeletal: other (Bilateral lower extremity contractures) Results Results 24hrs Laboratory Tests Test 02/07/19 16:59 02/07/19 20:21 02/08/19 06:46 02/08/19 08:05 Vancomycin Level Trough 15.4 Bedside Glucose 152 104 White Blood Count 3.6 L Red Blood Count 2.98 L Hemoglobin 7.8 L Hematocrit 26.0 L Mean Corpuscular Volume 87.2 Mean Corpuscular 26.2 L Hemoglobin Mean Corpuscular 30.0 L Hemoglobin Concent Red Cell Distribution 14.4 Width Platelet Count 369 Mean Platelet Volume 10.4 Immature Granulocytes % 0.600 H Neutrophils % 62.6 Lymphocytes % 21.6 Monocytes % 9.3 Eosinophils % 5.1 Basophils % 0.8 Nucleated Red Blood 0.0 Cells % Immature Granulocytes # 0.020 Neutrophils # 2.2 Lymphocytes # 0.8 Monocytes # 0.3 Eosinophils # 0.2 Basophils # 0.0 Nucleated Red Blood 0.0 Cells # Sodium Level 141 Potassium Level 3.9 Chloride Level 110 Carbon Dioxide Level 24 Anion Gap 7 Blood Urea Nitrogen 20 Creatinine 1.04 Est Glomerular Filtrat > 60 Rate mL/min Glucose Level 87 Calcium Level 8.2 L Test 02/08/19 12:35 Bedside Glucose 101 Medications Medication Current Medications IV Flush (NS 3 ml) 3 ml PER PROTOCOL IV ; Start 02/06/19 at 05:30 Ondansetron HCl (Zofran Inj) 4 mg Q6H PRN IV NAUSEA/VOMITING; Start 02/06/19 at 05:30 Acetaminophen (Tylenol Tab) 650 mg Q6H PRN PO .PAIN 1-3 OR TEMP Last administered on 02/06/19at 21:57; Admin Dose 650 MG; Start 02/06/19 at 05:30 Acetaminophen/ Hydrocodone Bitart ([place] (5/325)) 1 tab Q6H PRN PO .MOD PAIN 4- 6 Last administered on 02/07/19at 20:42; Admin Dose 1 TAB; Start 02/06/19 at 05:30 Morphine Sulfate (morphine) 2 mg Q4H PRN IV .SEVERE PAIN 7-10; Start 02/06/19 at 05:30 Docusate Sodium (Colace) 100 mg Q12H PRN PO .CONSTIPATION; Start 02/06/19 at 05:30 Magnesium Hydroxide (Milk Of Mag) 30 ml DAILY PRN PO .CONSTIPATION; Start 02/06/19 at 05:30 Pantoprazole (Protonix Tab) 40 mg DAILY@06 PO Last administered on 02/07/19at 05:28; Admin Dose 40 MG; Start 02/06/19 at 06:00 Sodium Chloride 1,000 ml @ 75 mls/hr [id number] IV Last administered on 02/07/19at 11:44; Admin Dose 75 MLS/HR; Start 02/06/19 at 05:21 Lorazepam (Ativan) 0.5 mg Q6H PRN IV ANXIETY; Start 02/06/19 at 05:30 Albuterol/ Ipratropium (Duoneb) 3 ml Q4H RESP THERAPY PRN HHN SHORTNESS OF BREATH; Start 02/06/19 at 05:30 Piperacillin Sod/ Tazobactam Sod 100 ml @ 200 mls/hr Q6 IVPB Last administered on 02/08/19at 12:33; Admin Dose 200 MLS/HR; Start 02/06/19 at 12:00 Vancomycin HCl (Vanco Iv Per Pharmacy) VANCOMYCIN PER PHARMACY NOTE XX ; Start 02/06/19 at 05:30 Hydralazine HCl (Apresoline) 10 mg Q6H PRN IV ELEVATED BLOOD PRESSURE; Start 02/06/19 at 05:30 Clonidine (Catapres) 0.1 mg Q6H PRN PO ELEVATED SYSTOLIC BP Last administered on 02/07/19at 15:54; Admin Dose 0.1 MG; Start 02/06/19 at 05:30 Nitroglycerin (Nitroglycerin (Sl Tab) 0.4 Mg) 1 tab Q5M PRN SL ANGINA; Start 02/06/19 at 05:30 Ascorbic Acid (Vitamin C) 500 mg DAILY PO Last administered on 02/08/19at 08:42; Admin Dose 500 MG; Start 02/06/19 at 09:00 Famotidine (Pepcid) 20 mg Q12 PO Last administered on 02/08/19at 08:41; Admin Dose 20 MG; Start 02/06/19 at 09:00 Gabapentin (Neurontin) 100 mg TID PO Last administered on 02/08/19at 12:36; Admin Dose 100 MG; Start 02/06/19 at 09:00 Metoprolol Tartrate (Lopressor) 75 mg BID PO Last administered on 02/08/19at 08:41; Admin Dose 75 MG; Start 02/06/19 at 09:00 Multivitamins Therapeutic (Theragran) 1 tab DAILY PO Last administered on 02/08/19 08:42; Admin Dose 1 TAB; Start 02/06/19 at 09:00 Miscellaneous Information Patients own medicat... BID@10,16 XX ; Start 02/06/19 at 16:00 Diagnostic Test (Pha) (Accu-Chek) 1 ea 02 XX ; Start 02/07/19 at 02:00 Insulin Glargine (Lantus) 20 units DAILY@0800 SC ; Start 02/06/19 at 15:30 Insulin Aspart (Novolog Insulin Pen) NOVOLOG *MILD* ALGORITHM WITH MEALS BEDTIME SC ; Start 02/06/19 at 18:00 Miscellaneous Information 1 ea NOTE XX ; Start 02/06/19 at 14:30 Glucose (Glutose) 15 gm Q15M PRN PO DECREASED GLUCOSE; Start 02/06/19 at 14:30 Glucose (Glutose) 22.5 gm Q15M PRN PO DECREASED GLUCOSE; Start 02/06/19 at 14:30 Dextrose (D50w Syringe) 25 ml Q15M PRN IV DECREASED GLUCOSE; Start 02/06/19 at 14:30 Dextrose (D50w Syringe) 50 ml Q15M PRN IV DECREASED GLUCOSE; Start 02/06/19 at 14:30 Glucagon (Glucagen) 1 mg Q15M PRN IM DECREASED GLUCOSE; Start 02/06/19 at 14:30 Glucose (Glutose) 15 gm Q15M PRN BUCCAL DECREASED GLUCOSE; Start 02/06/19 at 14:30 Collagenase (Santyl) 1 applic DAILY TOP Last administered on 02/08/19 08:43; Admin Dose 1 APPLIC; Start 02/06/19 at 18:30 Collagenase (Santyl) 1 applic PRN PRN TOP WHEN SOILED; Start 02/06/19 at 18:30 Mupirocin (Bactroban) 1 applic BID TOP Last administered on 02/08/19 08:43; Admin Dose 1 APPLIC; Start 02/07/19 at 10:00 Lisinopril (Zestril) 40 mg DAILY PO Last administered on 02/08/19 08:42; Admin Dose 40 MG; Start 02/08/19 at 09:00 Metformin HCl (Glucophage) 1,000 mg WITH BREAKFAST DINNE PO Last administered on 02/08/19 08:38; Admin Dose 1,000 MG; Start 02/07/19 at 18:00 Clotrimazole (Lotrimin Cr) 1 applic BID TOP Last administered on 02/08/19 08:43; Admin Dose 1 APPLIC; Start 02/07/19 at 11:30 Vancomycin HCl 100 ml @ 100 mls/hr Q12H IVPB Last administered on 02/08/19 11:44; Admin Dose 100 MLS/HR; Start 02/08/19 at 11:00 ALICE JARRETT MD Feb 08, 2019 13:18
[2019-02-08] MEDS ORDERED: ERGOCALCIFEROL (8000 UNITS/ML PO SYG) PO ONE (14:00)
--- NOTE | 2019-02-08 14:11 | PN ---
Date/Time of Note Date/Time of Note DATE: 02/08/19 TIME: 14:08 Assessment/Plan Lines/Catheters IV Catheter Type (from [facility]): Peripheral IV Chanel in Place (from [facility]): Yes Assessment/Plan Chief Complaint/Hosp Course 1. Multiple wounds:s/p debridement of bilat buttock 02/07/19 -further debridement prn -local care> will add dakins since +wound culture -frequent turning and off-loading -low air loss mattress -vitamin c -short term zinc -optimize nutrition -bilateral LE wounds: per podiatry 2. Osteomyelitis BLE -abx per ID 3. Bacteremia: -abx per sensi's > per ID 4. Diabetes: hga1c: 6.5 -glucose optimization 5. Diabetic neuropathy -safety precs (ensure no lines/tubes, etc on skin) -diabetes optimization 6. Hypertension -med mgt 7. Depression -psych optimization 8. Hypochromic anemia -monitor and tx as needed 9. Hypokalemia: -replete and monitor 10. Hypocalcemia: likely multifactorial -nutrition otiization -treat infections 11. Homelessness -social service assistant consult Thank you. Patient seen and examined in collaboration with Dr. Kj Moran Subjective 24 Hr Interval Summary + wound culture from buttock wounds. S/p debridement yesterday. No fevers, chills, sob, congested cough, cp, palpitations, koch, dizziness, n/v/d/dysuria. Exam/Review of Systems Vital Signs Vitals Vital Signs Date Temp Pulse Resp B/P (MAP) Pulse Ox O2 O2 Flow FiO2 Time Delivery Rate 02/08/19 98.3 75 18 175/87 97 Room Air 07:08 (116) Intake and Output 02/07/19 02/07/19 02/08/19 1515:00 23:00 07:00 IntakeIntake Total 400 ml 200 ml 750 ml BalanceBalance 400 ml 200 ml 750 ml Exam Free Text/Dictation Constitutional: alert, oriented, well developed Psych: nl mood/affect, anxiety (min) Head: normocephalic, atraumatic Eyes: nl conjunctiva, EOMI, nl lids, nl sclera ENMT: nl external ears & nose, nl lips & teeth, mucosa pink and moist Neck: supple, non-tender; No jvd Respiratory: normal air movement; No congested cough Cardiovascular: regular rate and rhythm, nl pulses; No edema Gastrointestinal: soft, non-tender Genitourinary - Male: nl penis, nl scrotum Musculoskeletal: nl extremities to inspection, other (contracted BLE) Extremities: normal pulses; No pitting pedal edema Neurological: nl mental status, nl speech, nl strength Skin: other (multiple wounds: bilat buttock: clean, scant drainage); BLE: wounds: dry No rash or lesions Lymph: No nl lymph nodes Results Result Diagram: 02/08/19 0646 02/08/19 0646 CALLY NOEL NP Feb 08, 2019 14:11
[2019-02-08] MEDS: HYDROCODONE/APAP (5/325) TAB PO PRN (14:19)
[2019-02-08 14:48] VITALS: BP 190/95; PULSE 82; RESP 18
[2019-02-08] MEDS: hydrALAzine 20 MG INJ IV PRN (15:04)
--- NOTE | 2019-02-08 15:05 | CONS ---
Assessment/Plan Assessment/Plan Hospital Course (Demo Recall) ID PROGRESS NOTE CURRENT ABX: DAY # =>Vanco IV + Zosyn 24H INTERVAL SUMMARY * 63 yo M, resting with eyes closed, no fevers, VSS, looks comfortable * CHART REVIEWED: Patient was discharged on January 26, he supposed to complete 8 weeks of vancomycin and 6 weeks of Rocephin for osteomyelitis. MICRO/OTHER * 02/07/19 RIGHT BUTTOCK CX (+) WOUND CULTURE Preliminary Organism 1 STAPHYLOCOCCUS AUREUS QUANTITY 2+ * 02/07/19 LEFT BUTTOCK CX == Pending * 02/06/19 BCx 1/ 4 (+) CoNS PHYSICAL EXAMINATION: GENERAL: VSS, NAD HEENT: AT, NC, unremarkable NECK: Supple, CHEST: Equal chest rise bilaterally, without dyspnea on observation HEART: Pulse RRR ABDOMEN: Soft : deferred EXTREMITIES: Warm, dry SKIN: No rash, no diaphoresis == SEE PHOTOS ID ASSESSMENT 63 yo M admit with: 1. Bilateral lower extremities diabetic ulcerations 2. Left foot osteomyelitis 3. Diabetes with diabetic neuropathy 4. Bilateral buttocks ulcerations, status post debridement 5. Coag negative staph bacteremia consistent with contaminant (+)MRSA NARES prior admit ABX ALLERGIES: None to ABX INVASIVES: PICC CURRENT ABX: DAY # > Vanco IV + Zosyn ID RECOMMENDATIONS/PLAN: 1. Patient was discharged on January 26, he supposed to complete 8 weeks of vancomycin and 6 weeks of Rocephin for osteomyelitis. 2. Continue current ABX --> await final micro . Consultation Date/Type/Reason Admit Date/Time Feb 06, 2019 at 03:18 Initial Consult Date 02/07/19 Requesting Provider: MASOUD SOLANO DPM Date/Time of Note DATE: 02/08/19 TIME: 15:05 Exam/Review of Systems Exam Vitals Vital Signs Date Temp Pulse Resp B/P (MAP) Pulse Ox O2 O2 Flow FiO2 Time Delivery Rate 02/08/19 98.8 82 18 190/95 96 Room Air 14:48 (126) Intake and Output 02/07/19 02/07/19 02/08/19 1515:00 23:00 07:00 IntakeIntake Total 400 ml 200 ml 750 ml BalanceBalance 400 ml 200 ml 750 ml Results Result Diagram: 02/08/1946 6/8/19 0646 Results 24hrs Laboratory Tests Test 02/07/19 16:59 02/07/19 20:21 02/08/19 06:46 02/08/19 08:05 Vancomycin Level Trough 15.4 Bedside Glucose 152 104 White Blood Count 3.6 L Red Blood Count 2.98 L Hemoglobin 7.8 L Hematocrit 26.0 L Mean Corpuscular Volume 87.2 Mean Corpuscular 26.2 L Hemoglobin Mean Corpuscular 30.0 L Hemoglobin Concent Red Cell Distribution 14.4 Width Platelet Count 369 Mean Platelet Volume 10.4 Immature Granulocytes % 0.600 H Neutrophils % 62.6 Lymphocytes % 21.6 Monocytes % 9.3 Eosinophils % 5.1 Basophils % 0.8 Nucleated Red Blood 0.0 Cells % Immature Granulocytes # 0.020 Neutrophils # 2.2 Lymphocytes # 0.8 Monocytes # 0.3 Eosinophils # 0.2 Basophils # 0.0 Nucleated Red Blood 0.0 Cells # Sodium Level 141 Potassium Level 3.9 Chloride Level 110 Carbon Dioxide Level 24 Anion Gap 7 Blood Urea Nitrogen 20 Creatinine 1.04 Est Glomerular Filtrat > 60 Rate mL/min Glucose Level 87 Calcium Level 8.2 L Rapid Plasma Reagin NONREACTIVE Test 02/08/19 12:35 Bedside Glucose 101 Medications Medication Current Medications IV Flush (NS 3 ml) 3 ml PER PROTOCOL IV ; Start 02/06/19 at 05:30 Ondansetron HCl (Zofran Inj) 4 mg Q6H PRN IV NAUSEA/VOMITING; Start 02/06/19 at 05:30 Acetaminophen (Tylenol Tab) 650 mg Q6H PRN PO .PAIN 1-3 OR TEMP Last administered on 02/06/19at 21:57; Admin Dose 650 MG; Start 02/06/19 at 05:30 Acetaminophen/ Hydrocodone Bitart ([place] (5/325)) 1 tab Q6H PRN PO .MOD PAIN 4- 6 Last administered on 02/08/19at 14:19; Admin Dose 1 TAB; Start 02/06/19 at 05:30 Morphine Sulfate (morphine) 2 mg Q4H PRN IV .SEVERE PAIN 7-10; Start 02/06/19 at 05:30 Docusate Sodium (Colace) 100 mg Q12H PRN PO .CONSTIPATION; Start 02/06/19 at 05:30 Magnesium Hydroxide (Milk Of Mag) 30 ml DAILY PRN PO .CONSTIPATION; Start 02/06/19 at 05:30 Pantoprazole (Protonix Tab) 40 mg DAILY@06 PO Last administered on 02/07/19at 05:28; Admin Dose 40 MG; Start 02/06/19 at 06:00 Sodium Chloride 1,000 ml @ 75 mls/hr [id number] IV Last administered on 02/07/19at 11:44; Admin Dose 75 MLS/HR; Start 02/06/19 at 05:21 Lorazepam (Ativan) 0.5 mg Q6H PRN IV ANXIETY; Start 02/06/19 at 05:30 Albuterol/ Ipratropium (Duoneb) 3 ml Q4H RESP THERAPY PRN HHN SHORTNESS OF BREATH; Start 02/06/19 at 05:30 Piperacillin Sod/ Tazobactam Sod 100 ml @ 200 mls/hr Q6 IVPB Last administered on 02/08/19at 12:33; Admin Dose 200 MLS/HR; Start 02/06/19 at 12:00 Vancomycin HCl (Vanco Iv Per Pharmacy) VANCOMYCIN PER PHARMACY NOTE XX ; Start 02/06/19 at 05:30 Hydralazine HCl (Apresoline) 10 mg Q6H PRN IV ELEVATED BLOOD PRESSURE; Start 02/06/19 at 05:30 Clonidine (Catapres) 0.1 mg Q6H PRN PO ELEVATED SYSTOLIC BP Last administered on 02/07/19at 15:54; Admin Dose 0.1 MG; Start 02/06/19 at 05:30 Nitroglycerin (Nitroglycerin (Sl Tab) 0.4 Mg) 1 tab Q5M PRN SL ANGINA; Start 02/06/19 at 05:30 Ascorbic Acid (Vitamin C) 500 mg DAILY PO Last administered on 02/08/19at 08:42; Admin Dose 500 MG; Start 02/06/19 at 09:00 Famotidine (Pepcid) 20 mg Q12 PO Last administered on 02/08/19at 08:41; Admin Dose 20 MG; Start 02/06/19 at 09:00 Gabapentin (Neurontin) 100 mg TID PO Last administered on 02/08/19at 12:36; Admin Dose 100 MG; Start 02/06/19 at 09:00 Metoprolol Tartrate (Lopressor) 75 mg BID PO Last administered on 02/08/19at 08:41; Admin Dose 75 MG; Start 02/06/19 at 09:00 Multivitamins Therapeutic (Theragran) 1 tab DAILY PO Last administered on 02/08/19at 08:42; Admin Dose 1 TAB; Start 02/06/19 at 09:00 Miscellaneous Information Patients own medicat... BID@10,16 XX ; Start 02/06/19 at 16:00 Diagnostic Test (Pha) (Accu-Chek) 1 ea 02 XX ; Start 02/07/19 at 02:00 Insulin Glargine (Lantus) 20 units DAILY@0800 SC ; Start 02/06/19 at 15:30 Insulin Aspart (Novolog Insulin Pen) NOVOLOG *MILD* ALGORITHM WITH MEALS BEDTIME SC ; Start 02/06/19 at 18:00 Miscellaneous Information 1 ea NOTE XX ; Start 02/06/19 at 14:30 Glucose (Glutose) 15 gm Q15M PRN PO DECREASED GLUCOSE; Start 02/06/19 at 14:30 Glucose (Glutose) 22.5 gm Q15M PRN PO DECREASED GLUCOSE; Start 02/06/19 at 14:30 Dextrose (D50w Syringe) 25 ml Q15M PRN IV DECREASED GLUCOSE; Start 02/06/19 at 14:30 Dextrose (D50w Syringe) 50 ml Q15M PRN IV DECREASED GLUCOSE; Start 02/06/19 at 14:30 Glucagon (Glucagen) 1 mg Q15M PRN IM DECREASED GLUCOSE; Start 02/06/19 at 14:30 Glucose (Glutose) 15 gm Q15M PRN BUCCAL DECREASED GLUCOSE; Start 02/06/19 at 14:30 Collagenase (Santyl) 1 applic DAILY TOP Last administered on 02/08/19at 08:43; Admin Dose 1 APPLIC; Start 02/06/19 at 18:30 Collagenase (Santyl) 1 applic PRN PRN TOP WHEN SOILED; Start 02/06/19 at 18:30 Mupirocin (Bactroban) 1 applic BID TOP Last administered on 02/08/19at 08:43; Admin Dose 1 APPLIC; Start 02/07/19 at 10:00 Lisinopril (Zestril) 40 mg DAILY PO Last administered on 02/08/19at 08:42; Admin Dose 40 MG; Start 02/08/19 at 09:00 Metformin HCl (Glucophage) 1,000 mg WITH BREAKFAST DINNE PO Last administered on 02/08/19at 08:38; Admin Dose 1,000 MG; Start 02/07/19 at 18:00 Clotrimazole (Lotrimin Cr) 1 applic BID TOP Last administered on 02/08/19at 08:43; Admin Dose 1 APPLIC; Start 02/07/19 at 11:30 Vancomycin HCl 100 ml @ 100 mls/hr Q12H IVPB Last administered on 02/08/19at 11:44; Admin Dose 100 MLS/HR; Start 02/08/19 at 11:00 Sodium Hypochlorite (Dakins Diluted ()) 1 applic DAILY TP ; Start 02/09/19 at 09:00 BARRERA AGUIAR NP Feb 08, 2019 15:05
[2019-02-08 16:18] VITALS: BP 169/83; PULSE 82
[2019-02-08 17:30] VITALS: BP 155/72; PULSE 84
[2019-02-08 19:52] VITALS: BP 147/68; PULSE 85; RESP 18
[2019-02-09] MEDS: SOD CHLORIDE 0.45% 1,000 ML IV SCH ×4 (00:01→23:27)
[2019-02-09] MEDS: PIPER-TAZO 3.375 GM IV (PMX) 100 ML IVPB SCH ×4 (00:12→18:03)
[2019-02-09] MEDS: ACCU-CHEK XX SCH (02:00)
[2019-02-09] MEDS: PANTOPRAZOLE (EC) 40 MG TAB PO SCH (05:30)
[2019-02-09] MEDS: INSULIN ASPART [NOVOLOG] 3 ML PEN SC SCH ×4 (08:00→21:00)
[2019-02-09] MEDS: INSULIN GLARGINE [LANTus] (100 UNITS/ML) SYG SC SCH (08:00)
[2019-02-09 08:07] VITALS: BP 210/100; PULSE 87; RESP 18
[2019-02-09] MEDS: ASCORBIC ACID 500 MG TAB PO SCH (08:51)
[2019-02-09] MEDS: COLLAGENASE 5 GM (UD JAR) TOP SCH (08:51)
[2019-02-09] MEDS: LISINOPRIL 20 MG TAB PO SCH (08:53)
[2019-02-09] MEDS: GABAPENTIN 100 MG CAP PO SCH ×3 (08:53→21:23)
[2019-02-09] MEDS: FAMOTIDINE 20 MG TAB PO SCH ×2 (08:53→21:23)
[2019-02-09] MEDS: METOPROLOL 25 MG TAB PO SCH ×2 (08:53→21:23)
[2019-02-09] MEDS: MUPIROCIN 2% 22 GM OINT TOP SCH ×2 (08:54→21:17)
[2019-02-09] MEDS: CLOTRIMAZOLE 1% 30 GM CR TOP SCH ×2 (08:54→21:23)
[2019-02-09] MEDS: MULTIVITAMINS THERAPEUTIC TAB PO SCH (08:54)
[2019-02-09] MEDS: metFORMIN 500 MG TAB PO SCH ×2 (08:58→18:07)
[2019-02-09] MEDS: DAKINS 0.0125%(1/40) 473 ML SOLUTION TP SCH (08:58)
--- NOTE | 2019-02-09 11:20 | PN ---
Date/Time of Note Date/Time of Note DATE: 02/09/19 TIME: 11:17 Assessment/Plan Lines/Catheters IV Catheter Type (from [facility]): Peripheral IV Chanel in Place (from [facility]): Yes Assessment/Plan Chief Complaint/Hosp Course 1. Multiple wounds:s/p debridement of bilat buttock 02/07/19 -further debridement prn -local care> w dakins -frequent turning and off-loading -low air loss mattress -vitamin c -short term zinc -optimize nutrition -bilateral LE wounds: per podiatry 2. Osteomyelitis BLE -abx per ID 3. Hypertension -med mgt 4. Diabetes: hga1c: 6.5 -glucose optimization 5. Diabetic neuropathy -safety precs (ensure no lines/tubes, etc on skin) -diabetes optimization 6. Hypochromic anemia -monitor and tx as needed 7. Depression -psych optimization 8. Hypocalcemia: likely multifactorial -nutrition otiization -treat infections 9. 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 Patient seen and examined in collaboration with Dr. Kj Moran Subjective 24 Hr Interval Summary Bilat buttock cultures noted. Hypertension. No fevers, chills, sob, congested cough, cp, palpitations, koch, dizziness, n/v/d/dysuria. Exam/Review of Systems Vital Signs Vitals Vital Signs Date Temp Pulse Resp B/P (MAP) Pulse Ox O2 O2 Flow FiO2 Time Delivery Rate 02/09/19 98.0 87 18 210/100 98 08:07 (136) 02/08/19 Room Air 14:48 Intake and Output 02/08/19 02/08/19 02/09/19 1515:00 23:00 07:00 IntakeIntake Total 100 ml 800 ml 300 ml BalanceBalance 100 ml 800 ml 300 ml Exam Free Text/Dictation Constitutional: alert, oriented, well developed Psych: nl mood/affect, anxiety (min) Head: normocephalic, atraumatic Eyes: nl conjunctiva, EOMI, nl lids, nl sclera ENMT: nl external ears & nose, nl lips & teeth, mucosa pink and moist Neck: supple, non-tender; No jvd Respiratory: normal air movement; No congested cough Cardiovascular: regular rate and rhythm, nl pulses; No edema Gastrointestinal: soft, non-tender Genitourinary - Male: nl penis, nl scrotum Musculoskeletal: nl extremities to inspection, other (contracted BLE) Extremities: normal pulses; No pitting pedal edema Neurological: nl mental status, nl speech, nl strength Skin: other (multiple wounds: bilat buttock: clean, scant drainage); BLE: wounds: dry No rash or lesions Lymph: No nl lymph nodes Results Result Diagram: 02/08/19 0646 02/08/19 0646 CALLY NOEL NP Feb 09, 2019 11:20
[2019-02-09] MEDS: VANCOMYCIN 500 MG (PMX) 100 ML IVPB SCH ×2 (11:31→23:19)
--- NOTE | 2019-02-09 11:59 | CONS ---
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 MICRO/OTHER * 02/07/19 RIGHT BUTTOCK CX (+) WOUND CULTURE Preliminary Organism 1 METHICILLIN RESISTANT S.AUREUS QUANTITY 2+ . MULTI DRUG RESISTANT ORGANISM Organism 2 GRAM NEGATIVE SAMI QUANTITY ISOLATED FROM BROTH ONLY Organism 3 DIPTHEROIDS QUANTITY 2+ MRSA M.I.C. RX --------- --- CEFAZOLIN R CIPROFLOXACIN >=8 R CLINDAMYCIN >=8 R DOXYCYCLINE S ERYTHROMYCIN >=8 R LEVOFLOXACIN 4 R OXACILLIN >=4 R PENICILLIN-G >=0.5 R RIFAMPIN <=0.5 S VANCOMYCIN <=0.5 S TRIMETHOPRIM/SULFAMETHOXAZOLE 80 R * 02/07/19 LEFT BUTTOCK CX == WOUND CULTURE Preliminary Organism 1 METHICILLIN RESISTANT S.AUREUS QUANTITY SCANT GROWTH . MULTI DRUG RESISTANT ORGANISM Organism 2 PSEUDOMONAS SPECIES QUANTITY SCANT GROWTH Organism 3 DIPTHEROIDS QUANTITY 1+ * 02/06/19 BCx 1/ 4 (+) CoNS PHYSICAL EXAMINATION: GENERAL: VSS, NAD HEENT: AT, NC, unremarkable NECK: Supple, CHEST: Equal chest rise bilaterally, without dyspnea on observation HEART: Pulse RRR ABDOMEN: Soft : deferred EXTREMITIES: Warm, dry SKIN: No rash, no diaphoresis == SEE PHOTOS ID ASSESSMENT 63 yo M admit with: 1. Bilateral lower extremities diabetic ulcerations 2. Left foot osteomyelitis 3. Diabetes with diabetic neuropathy 4. Bilateral buttocks ulcerations, status post debridement 5. Coag negative staph bacteremia consistent with contaminant (+)MRSA NARES prior admit ABX ALLERGIES: None to ABX INVASIVES: PICC CURRENT ABX: DAY # > Vanco IV + Zosyn ID RECOMMENDATIONS/PLAN: 1. Patient was discharged on January 26, he supposed to complete 8 weeks of vancomycin and 6 weeks of Rocephin for osteomyelitis. 2. Continue current ABX --> await final micro still pending . Consultation Date/Type/Reason Admit Date/Time Feb 06, 2019 at 03:18 Initial Consult Date 02/07/19 Requesting Provider: MASOUD SOLANO DPM Date/Time of Note DATE: 02/09/19 TIME: 11:57 Exam/Review of Systems Exam Vitals Vital Signs Date Temp Pulse Resp B/P (MAP) Pulse Ox O2 O2 Flow FiO2 Time Delivery Rate 02/09/19 98.0 87 18 210/100 98 08:07 (136) 02/08/19 Room Air 14:48 Intake and Output 02/08/19 02/08/19 02/09/19 1515:00 23:00 07:00 IntakeIntake Total 100 ml 800 ml 300 ml BalanceBalance 100 ml 800 ml 300 ml Results Result Diagram: 02/08/19 0646 02/08/19 0646 Results 24hrs Laboratory Tests Test 02/08/19 12:35 02/08/19 17:26 02/08/19 20:28 02/09/19 08:34 Bedside Glucose 101 126 129 96 Medications Medication Current Medications IV Flush (NS 3 ml) 3 ml PER PROTOCOL IV ; Start 02/06/19 at 05:30 Ondansetron HCl (Zofran Inj) 4 mg Q6H PRN IV NAUSEA/VOMITING; Start 02/06/19 at 05:30 Acetaminophen (Tylenol Tab) 650 mg Q6H PRN PO .PAIN 1-3 OR TEMP Last administered on 02/06/19at 21:57; Admin Dose 650 MG; Start 02/06/19 at 05:30 Acetaminophen/ Hydrocodone Bitart ([place] (5/325)) 1 tab Q6H PRN PO .MOD PAIN 4- 6 Last administered on 02/08/19at 14:19; Admin Dose 1 TAB; Start 02/06/19 at 05:30 Morphine Sulfate (morphine) 2 mg Q4H PRN IV .SEVERE PAIN 7-10; Start 02/06/19 at 05:30 Docusate Sodium (Colace) 100 mg Q12H PRN PO .CONSTIPATION; Start 02/06/19 at 05:30 Magnesium Hydroxide (Milk Of Mag) 30 ml DAILY PRN PO .CONSTIPATION; Start 02/06/19 at 05:30 Pantoprazole (Protonix Tab) 40 mg DAILY@06 PO Last administered on 02/07/19at 05:28; Admin Dose 40 MG; Start 02/06/19 at 06:00 Sodium Chloride 1,000 ml @ 75 mls/hr [id number] IV Last administered on 02/09/19at 06:54; Admin Dose 75 MLS/HR; Start 02/06/19 at 05:21 Lorazepam (Ativan) 0.5 mg Q6H PRN IV ANXIETY; Start 02/06/19 at 05:30 Albuterol/ Ipratropium (Duoneb) 3 ml Q4H RESP THERAPY PRN HHN SHORTNESS OF BREATH; Start 02/06/19 at 05:30 Piperacillin Sod/ Tazobactam Sod 100 ml @ 200 mls/hr Q6 IVPB Last administered on 02/09/19at 05:30; Admin Dose 200 MLS/HR; Start 02/06/19 at 12:00 Vancomycin HCl (Vanco Iv Per Pharmacy) VANCOMYCIN PER PHARMACY NOTE XX ; Start 02/06/19 at 05:30 Hydralazine HCl (Apresoline) 10 mg Q6H PRN IV ELEVATED BLOOD PRESSURE Last administered on 02/08/19at 15:04; Admin Dose 10 MG; Start 02/06/19 at 05:30 Clonidine (Catapres) 0.1 mg Q6H PRN PO ELEVATED SYSTOLIC BP Last administered on 02/07/19at 15:54; Admin Dose 0.1 MG; Start 02/06/19 at 05:30 Nitroglycerin (Nitroglycerin (Sl Tab) 0.4 Mg) 1 tab Q5M PRN SL ANGINA; Start 02/06/19 at 05:30 Ascorbic Acid (Vitamin C) 500 mg DAILY PO Last administered on 02/09/19at 08:51; Admin Dose 500 MG; Start 02/06/19 at 09:00 Famotidine (Pepcid) 20 mg Q12 PO Last administered on 02/09/19at 08:53; Admin Dose 20 MG; Start 02/06/19 at 09:00 Gabapentin (Neurontin) 100 mg TID PO Last administered on 02/09/19at 08:53; Admin Dose 100 MG; Start 02/06/19 at 09:00 Metoprolol Tartrate (Lopressor) 75 mg BID PO Last administered on 02/09/19at 08:53; Admin Dose 75 MG; Start 02/06/19 at 09:00 Multivitamins Therapeutic (Theragran) 1 tab DAILY PO Last administered on 02/09/19at 08:54; Admin Dose 1 TAB; Start 02/06/19 at 09:00 Miscellaneous Information Patients own medicat... BID@10,16 XX ; Start 02/06/19 at 16:00 Diagnostic Test (Pha) (Accu-Chek) 1 ea 02 XX ; Start 02/07/19 at 02:00 Insulin Glargine (Lantus) 20 units DAILY@0800 SC ; Start 02/06/19 at 15:30 Insulin Aspart (Novolog Insulin Pen) NOVOLOG *MILD* ALGORITHM WITH MEALS BEDTIME SC ; Start 02/06/19 at 18:00 Miscellaneous Information 1 ea NOTE XX ; Start 02/06/19 at 14:30 Glucose (Glutose) 15 gm Q15M PRN PO DECREASED GLUCOSE; Start 02/06/19 at 14:30 Glucose (Glutose) 22.5 gm Q15M PRN PO DECREASED GLUCOSE; Start 02/06/19 at 14:30 Dextrose (D50w Syringe) 25 ml Q15M PRN IV DECREASED GLUCOSE; Start 02/06/19 at 14:30 Dextrose (D50w Syringe) 50 ml Q15M PRN IV DECREASED GLUCOSE; Start 02/06/19 at 14:30 Glucagon (Glucagen) 1 mg Q15M PRN IM DECREASED GLUCOSE; Start 02/06/19 at 14:30 Glucose (Glutose) 15 gm Q15M PRN BUCCAL DECREASED GLUCOSE; Start 02/06/19 at 14:30 Collagenase (Santyl) 1 applic DAILY TOP Last administered on 02/09/19at 08:51; Admin Dose 1 APPLIC; Start 02/06/19 at 18:30 Collagenase (Santyl) 1 applic PRN PRN TOP WHEN SOILED; Start 02/06/19 at 18:30 Mupirocin (Bactroban) 1 applic BID TOP Last administered on 02/09/19at 08:54; Admin Dose 1 APPLIC; Start 02/07/19 at 10:00 Lisinopril (Zestril) 40 mg DAILY PO Last administered on 02/09/19 08:53; Admin Dose 40 MG; Start 02/08/19 at 09:00 Metformin HCl (Glucophage) 1,000 mg WITH BREAKFAST DINNE PO Last administered on 02/09/19 08:58; Admin Dose 1,000 MG; Start 02/07/19 at 18:00 Clotrimazole (Lotrimin Cr) 1 applic BID TOP Last administered on 02/09/19 08:54; Admin Dose 1 APPLIC; Start 02/07/19 at 11:30 Vancomycin HCl 100 ml @ 100 mls/hr Q12H IVPB Last administered on 02/09/19 11:31; Admin Dose 100 MLS/HR; Start 02/08/19 at 11:00 Sodium Hypochlorite (Dakins Diluted ()) 1 applic DAILY TP Last administered on 02/09/19 08:58; Admin Dose 1 APPLIC; Start 02/09/19 at 09:00 BARRERA AGUIAR NP Feb 09, 2019 11:59
--- NOTE | 2019-02-09 13:52 | PN ---
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 This is actually 1 of the original indications for the chemical Botox. It would allow us to deal with the contractures of his lower extremities, will defer this off to our surgical colleagues (2) Osteomyelitis of left foot Status: Chronic Comment: Remain on antibiotics for the duration as outlined by infectious diseases through March 23 Qualifiers: Osteomyelitis type: chronic multifocal Qualified Codes: M86.372 - Chronic multifocal osteomyelitis, left ankle and foot (3) Diabetic peripheral neuropathy associated with type 2 diabetes mellitus Status: Chronic Comment: Noted. (4) Essential hypertension Status: Chronic Comment: Adequate control (5) Iron deficiency anemia Status: Chronic Comment: Receiving replacement Qualifiers: Iron deficiency anemia type: unspecified iron deficiency Qualified Codes: D50.9 - Iron deficiency anemia, unspecified (6) Sacral decubitus ulcer, stage III Status: Chronic Comment: Noted. (7) Vitamin D deficiency Status: Chronic Comment: On replacement Result Diagram: 02/08/19 0646 02/08/19 0646 Results 24hrs Laboratory Tests Test 02/08/19 17:26 02/08/19 20:28 02/09/19 08:34 02/09/19 12:14 Bedside Glucose 126 129 96 110 Subjective 24 Hr Interval Summary Free Text/Dictation Patient has 2 complaints, the first being that he would like to see an eye doctor due to slowly decreasing vision over several years and having been told he had cataract issues; the second issue being that he complains of constipation not having gone for bowel movements Constitutional: no complaints Respiratory: no complaints Cardiovascular: no complaints Gastrointestinal: no complaints Genitourinary: no complaints Exam/Review of Systems Exam Vitals Vital Signs Date Temp Pulse Resp B/P (MAP) Pulse Ox O2 O2 Flow FiO2 Time Delivery Rate 02/09/19 98.0 87 18 210/100 98 08:07 (136) 6/8/19 Room Air 14:48 Intake and Output 02/08/19 02/08/19 02/09/19 1515:00 23:00 07:00 IntakeIntake Total 100 ml 800 ml 300 ml BalanceBalance 100 ml 800 ml 300 ml Constitutional: alert, oriented Respiratory: clear to auscultation, normal air movement Cardiovascular: regular rate and rhythm, nl pulses Results Results 24hrs Laboratory Tests Test 02/08/19 17:26 02/08/19 20:28 02/09/19 08:34 02/09/19 12:14 Bedside Glucose 126 129 96 110 Medications Medication Current Medications IV Flush (NS 3 ml) 3 ml PER PROTOCOL IV ; Start 02/06/19 at 05:30 Ondansetron HCl (Zofran Inj) 4 mg Q6H PRN IV NAUSEA/VOMITING; Start 02/06/19 at 05:30 Acetaminophen (Tylenol Tab) 650 mg Q6H PRN PO .PAIN 1-3 OR TEMP Last administered on 02/06/19at 21:57; Admin Dose 650 MG; Start 02/06/19 at 05:30 Acetaminophen/ Hydrocodone Bitart ([place] (5/325)) 1 tab Q6H PRN PO .MOD PAIN 4- 6 Last administered on 02/08/19at 14:19; Admin Dose 1 TAB; Start 02/06/19 at 05:30 Morphine Sulfate (morphine) 2 mg Q4H PRN IV .SEVERE PAIN 7-10; Start 02/06/19 at 05:30 Docusate Sodium (Colace) 100 mg Q12H PRN PO .CONSTIPATION; Start 02/06/19 at 05:30 Magnesium Hydroxide (Milk Of Mag) 30 ml DAILY PRN PO .CONSTIPATION; Start 02/06/19 at 05:30 Pantoprazole (Protonix Tab) 40 mg DAILY@06 PO Last administered on 02/07/19at 05:28; Admin Dose 40 MG; Start 02/06/19 at 06:00 Sodium Chloride 1,000 ml @ 75 mls/hr [id number] IV Last administered on 02/09/19at 06:54; Admin Dose 75 MLS/HR; Start 02/06/19 at 05:21 Lorazepam (Ativan) 0.5 mg Q6H PRN IV ANXIETY; Start 02/06/19 at 05:30 Albuterol/ Ipratropium (Duoneb) 3 ml Q4H RESP THERAPY PRN HHN SHORTNESS OF BREATH; Start 02/06/19 at 05:30 Piperacillin Sod/ Tazobactam Sod 100 ml @ 200 mls/hr Q6 IVPB Last administered on 02/09/19at 13:01; Admin Dose 200 MLS/HR; Start 02/06/19 at 12:00 Vancomycin HCl (Vanco Iv Per Pharmacy) VANCOMYCIN PER PHARMACY NOTE XX ; Start 02/06/19 at 05:30 Hydralazine HCl (Apresoline) 10 mg Q6H PRN IV ELEVATED BLOOD PRESSURE Last administered on 02/08/19 15:04; Admin Dose 10 MG; Start 02/06/19 at 05:30 Clonidine (Catapres) 0.1 mg Q6H PRN PO ELEVATED SYSTOLIC BP Last administered on 02/07/19at 15:54; Admin Dose 0.1 MG; Start 02/06/19 at 05:30 Nitroglycerin (Nitroglycerin (Sl Tab) 0.4 Mg) 1 tab Q5M PRN SL ANGINA; Start 02/06/19 at 05:30 Ascorbic Acid (Vitamin C) 500 mg DAILY PO Last administered on 02/09/19at 08:51; Admin Dose 500 MG; Start 02/06/19 at 09:00 Famotidine (Pepcid) 20 mg Q12 PO Last administered on 02/09/19 08:53; Admin Dose 20 MG; Start 02/06/19 at 09:00 Gabapentin (Neurontin) 100 mg TID PO Last administered on 02/09/19 13:09; Admin Dose 100 MG; Start 02/06/19 at 09:00 Metoprolol Tartrate (Lopressor) 75 mg BID PO Last administered on 02/09/19 08:53; Admin Dose 75 MG; Start 02/06/19 at 09:00 Multivitamins Therapeutic (Theragran) 1 tab DAILY PO Last administered on 02/09/19 08:54; Admin Dose 1 TAB; Start 02/06/19 at 09:00 Miscellaneous Information Patients own medicat... BID@10,16 XX ; Start 02/06/19 at 16:00 Diagnostic Test (Pha) (Accu-Chek) 1 ea 02 XX ; Start 02/07/19 at 02:00 Insulin Glargine (Lantus) 20 units DAILY@0800 SC ; Start 02/06/19 at 15:30 Insulin Aspart (Novolog Insulin Pen) NOVOLOG *MILD* ALGORITHM WITH MEALS BEDTIME SC ; Start 02/06/19 at 18:00 Miscellaneous Information 1 ea NOTE XX ; Start 02/06/19 at 14:30 Glucose (Glutose) 15 gm Q15M PRN PO DECREASED GLUCOSE; Start 02/06/19 at 14:30 Glucose (Glutose) 22.5 gm Q15M PRN PO DECREASED GLUCOSE; Start 02/06/19 at 14:30 Dextrose (D50w Syringe) 25 ml Q15M PRN IV DECREASED GLUCOSE; Start 02/06/19 at 14:30 Dextrose (D50w Syringe) 50 ml Q15M PRN IV DECREASED GLUCOSE; Start 02/06/19 at 14:30 Glucagon (Glucagen) 1 mg Q15M PRN IM DECREASED GLUCOSE; Start 02/06/19 at 14:30 Glucose (Glutose) 15 gm Q15M PRN BUCCAL DECREASED GLUCOSE; Start 02/06/19 at 14:30 Collagenase (Santyl) 1 applic DAILY TOP Last administered on 02/09/19at 08:51; Admin Dose 1 APPLIC; Start 02/06/19 at 18:30 Collagenase (Santyl) 1 applic PRN PRN TOP WHEN SOILED; Start 02/06/19 at 18:30 Mupirocin (Bactroban) 1 applic BID TOP Last administered on 02/09/19 08:54; Admin Dose 1 APPLIC; Start 02/07/19 at 10:00 Lisinopril (Zestril) 40 mg DAILY PO Last administered on 02/09/19 08:53; Admin Dose 40 MG; Start 02/08/19 at 09:00 Metformin HCl (Glucophage) 1,000 mg WITH BREAKFAST DINNE PO Last administered on 02/09/19 08:58; Admin Dose 1,000 MG; Start 02/07/19 at 18:00 Clotrimazole (Lotrimin Cr) 1 applic BID TOP Last administered on 02/09/19 08:54; Admin Dose 1 APPLIC; Start 02/07/19 at 11:30 Vancomycin HCl 100 ml @ 100 mls/hr Q12H IVPB Last administered on 02/09/19at 11:31; Admin Dose 100 MLS/HR; Start 02/08/19 at 11:00 Sodium Hypochlorite (Dakins Diluted ()) 1 applic DAILY TP Last administered on 02/09/19at 08:58; Admin Dose 1 APPLIC; Start 02/09/19 at 09:00 ALICE JARRETT MD Feb 09, 2019 13:52
[2019-02-09] MEDS ORDERED: BISACODYL (EC) 5 MG TAB PO ONE (14:00)
[2019-02-09] MEDS ORDERED: MAGNESIUM CITRATE 300 ML BTL PO ONE (14:00)
[2019-02-09 14:12] VITALS: BP 212/102; PULSE 83; RESP 18
[2019-02-09] MEDS: hydrALAzine 20 MG INJ IV PRN (14:17)
[2019-02-09 18:36] VITALS: BP 181/85; PULSE 87; RESP 18
[2019-02-09 20:33] VITALS: BP 165/75; PULSE 83; RESP 18
[2019-02-09 21:08] VITALS: BP 121/51; PULSE 60; RESP 18
[2019-02-10] MEDS: PIPER-TAZO 3.375 GM IV (PMX) 100 ML IVPB SCH ×3 (00:28→12:05)
[2019-02-10] MEDS: ACCU-CHEK XX SCH (01:59)
[2019-02-10 02:21] VITALS: BP 182/78; PULSE 73; RESP 18
[2019-02-10] MEDS: hydrALAzine 20 MG INJ IV PRN ×2 (02:34→11:17)
[2019-02-10] MEDS: SOD CHLORIDE 0.45% 1,000 ML IV SCH ×2 (02:41→16:23)
[2019-02-10 03:50] VITALS: BP 136/63; PULSE 79; RESP 18
[2019-02-10] MEDS: PANTOPRAZOLE (EC) 40 MG TAB PO SCH (06:01)
[2019-02-10 07:53] VITALS: BP 180/81; PULSE 78; RESP 16
[2019-02-10] MEDS: INSULIN GLARGINE [LANTus] (100 UNITS/ML) SYG SC SCH (08:00)
[2019-02-10] MEDS: INSULIN ASPART [NOVOLOG] 3 ML PEN SC SCH ×4 (08:00→20:05)
[2019-02-10] MEDS: metFORMIN 500 MG TAB PO SCH ×2 (08:23→17:28)
[2019-02-10] MEDS: METOPROLOL 25 MG TAB PO SCH ×2 (08:24→20:04)
[2019-02-10] MEDS: GABAPENTIN 100 MG CAP PO SCH ×3 (08:25→20:06)
[2019-02-10] MEDS: MULTIVITAMINS THERAPEUTIC TAB PO SCH (08:25)
[2019-02-10] MEDS: ASCORBIC ACID 500 MG TAB PO SCH (08:25)
[2019-02-10] MEDS: FAMOTIDINE 20 MG TAB PO SCH ×2 (08:25→20:05)
[2019-02-10] MEDS: LISINOPRIL 20 MG TAB PO SCH (08:26)
[2019-02-10] MEDS: DAKINS 0.0125%(1/40) 473 ML SOLUTION TP SCH (08:27)
[2019-02-10] MEDS: CLOTRIMAZOLE 1% 30 GM CR TOP SCH ×2 (08:27→20:08)
[2019-02-10] MEDS: COLLAGENASE 5 GM (UD JAR) TOP SCH (08:27)
[2019-02-10] MEDS: MUPIROCIN 2% 22 GM OINT TOP SCH ×2 (08:27→20:08)
[2019-02-10] MEDS: HYDROCODONE/APAP (5/325) TAB PO PRN (08:43)
--- NOTE | 2019-02-10 08:52 | PN ---
Date/Time of Note Date/Time of Note DATE: 02/10/19 TIME: 08:49 Assessment/Plan VTE Prophylaxis Risk score (from Nsg)>0 risk: 4 Pharmacological prophylaxis: NA/contraindicated Pharm contraindication: patient refusal Lines/Catheters IV Catheter Type (from Nrsg): Peripheral IV Urinary Cath still in place: Yes Reason Cath still needed: urinary retention, pres ulcer contaminated by urine, skin wounds contaminated by urine Assessment/Plan Hospital Course SUBJECTIVE: no new issues OBJECTIVE: Vital signs-see below PHYSICAL EXAM: Constitutional: Chronically ill looking male,not in acute distress. HEENT: Head atraumatic and normocephalic. CHEST: Clear and good breath sounds equally. No wheezing. No rhonchi. HEART: S1, S2. Regular rate and rhythm. ABDOMEN: Soft/non tender with no rebound tenderness. Bowel sounds were present. EXTREMITIES: Crow.LEs w/multiple dry wounds/Swelling. +Fungi nails.Generalized weakness/mild contractures x4 extremities. NEUROLOGIC: Highly temperamental. Alert and oriented x3. Generalized weakness to all 4 extremities with contractures. ASSESSMENT AND PLAN:63 yo wheelchair bounded M w/dm2/dm ulcers/decubs admitted w/worsening crow LEs wouds .. Bilateral LE diabetic ulcers -Wound care -Continue antimicrobials. -multiorganisms from wound cultures -BC 1consistent with contaminant -continue abx and wound care Osteomyelitis -Patient on 6 weeks IV antibiotics which he has to complete. DMII --Stable glycemic trends - refused insulin inhouse -Metformin Peripheral neuropathy -cont. gabapentin Sacral decubitus ulcers -s/p debridement of bilat buttock 02/07/19 -further debridement prn -local care per surgery instructions, appreciate input -frequent turning and off-loading -low air loss mattress -vitamin c -short term zinc -optimize nutrition Onychomycosis -Clotrimazole cream -Podiatry f/u for PRN nail debridement Hypertension -stable -cont.BB/ACEi Anemia w/ iron deficiency+ chronic inflammation -stable -cont.oral iron Debility w/contractures -wheelchair bounded -SNF planning -PT eval/treatment when appropriate per podiatry in terms of weight bearing Chronic bowel/bladder incontinence -change [place] q 30days Homelessness -[employer] worker follow-up DVT prophylaxis: Refused ATC Disposition: placement pending Result Diagram: 02/10/19 0537 02/10/19 0537 Results 24hrs Laboratory Tests Test 02/09/19 12:14 02/09/19 15:10 02/09/19 17:49 02/09/19 21:13 Bedside Glucose 110 102 125 White Blood Count 5.6 # Red Blood Count 3.42 L Hemoglobin 9.0 L Hematocrit 29.5 L Mean Corpuscular 86.3 Volume Mean Corpuscular 26.3 L Hemoglobin Mean Corpuscular 30.5 L Hemoglobin Concent Red Cell Distribution 14.2 Width Platelet Count 439 H Mean Platelet Volume 10.6 H Immature Granulocytes 0.400 % Neutrophils % 70.2 Lymphocytes % 19.1 Monocytes % 7.6 Eosinophils % 1.8 Basophils % 0.9 Nucleated Red Blood 0.0 Cells % Immature Granulocytes 0.020 # Neutrophils # 3.9 Lymphocytes # 1.1 Monocytes # 0.4 Eosinophils # 0.1 Basophils # 0.1 Nucleated Red Blood 0.0 Cells # Sodium Level 140 Potassium Level 4.0 Chloride Level 110 Carbon Dioxide Level 22 Anion Gap 8 Blood Urea Nitrogen 17 Creatinine 0.94 Est Glomerular Filtrat > 60 Rate mL/min Glucose Level 101 Calcium Level 8.7 Test 02/10/19 05:37 02/10/19 08:17 White Blood Count 5.2 Red Blood Count 3.13 L Hemoglobin 8.2 L Hematocrit 26.7 L Mean Corpuscular 85.3 Volume Mean Corpuscular 26.2 L Hemoglobin Mean Corpuscular 30.7 L Hemoglobin Concent Red Cell Distribution 14.5 Width Platelet Count 434 H Mean Platelet Volume 10.0 Immature Granulocytes 0.400 % Neutrophils % 69.2 Lymphocytes % 18.3 Monocytes % 8.8 Eosinophils % 2.5 Basophils % 0.8 Nucleated Red Blood 0.0 Cells % Immature Granulocytes 0.020 # Neutrophils # 3.6 Lymphocytes # 1.0 Monocytes # 0.5 Eosinophils # 0.1 Basophils # 0.0 Nucleated Red Blood 0.0 Cells # Sodium Level 140 Potassium Level 3.6 Chloride Level 112 H Carbon Dioxide Level 22 Anion Gap 6 Blood Urea Nitrogen 15 Creatinine 0.91 Est Glomerular Filtrat > 60 Rate mL/min Glucose Level 106 Calcium Level 8.3 L Bedside Glucose 110 Exam/Review of Systems Exam Vitals Vital Signs Date Temp Pulse Resp B/P (MAP) Pulse Ox O2 O2 Flow FiO2 Time Delivery Rate 02/10/19 98.1 78 16 180/81 96 Room Air 07:53 (114) Intake and Output 02/09/19 02/09/19 02/10/19 1515:00 23:00 07:00 IntakeIntake Total 440 ml 1450 ml 913 ml OutputOutput Total 1800 ml 1400 ml BalanceBalance -1360 ml 50 ml 913 ml Results Results 24hrs Laboratory Tests Test 02/09/19 12:14 02/09/19 15:10 02/09/19 17:49 02/09/19 21:13 Bedside Glucose 110 102 125 White Blood Count 5.6 # Red Blood Count 3.42 L Hemoglobin 9.0 L Hematocrit 29.5 L Mean Corpuscular 86.3 Volume Mean Corpuscular 26.3 L Hemoglobin Mean Corpuscular 30.5 L Hemoglobin Concent Red Cell Distribution 14.2 Width Platelet Count 439 H Mean Platelet Volume 10.6 H Immature Granulocytes 0.400 % Neutrophils % 70.2 Lymphocytes % 19.1 Monocytes % 7.6 Eosinophils % 1.8 Basophils % 0.9 Nucleated Red Blood 0.0 Cells % Immature Granulocytes 0.020 # Neutrophils # 3.9 Lymphocytes # 1.1 Monocytes # 0.4 Eosinophils # 0.1 Basophils # 0.1 Nucleated Red Blood 0.0 Cells # Sodium Level 140 Potassium Level 4.0 Chloride Level 110 Carbon Dioxide Level 22 Anion Gap 8 Blood Urea Nitrogen 17 Creatinine 0.94 Est Glomerular Filtrat > 60 Rate mL/min Glucose Level 101 Calcium Level 8.7 Test 02/10/19 05:37 02/10/19 08:17 White Blood Count 5.2 Red Blood Count 3.13 L Hemoglobin 8.2 L Hematocrit 26.7 L Mean Corpuscular 85.3 Volume Mean Corpuscular 26.2 L Hemoglobin Mean Corpuscular 30.7 L Hemoglobin Concent Red Cell Distribution 14.5 Width Platelet Count 434 H Mean Platelet Volume 10.0 Immature Granulocytes 0.400 % Neutrophils % 69.2 Lymphocytes % 18.3 Monocytes % 8.8 Eosinophils % 2.5 Basophils % 0.8 Nucleated Red Blood 0.0 Cells % Immature Granulocytes 0.020 # Neutrophils # 3.6 Lymphocytes # 1.0 Monocytes # 0.5 Eosinophils # 0.1 Basophils # 0.0 Nucleated Red Blood 0.0 Cells # Sodium Level 140 Potassium Level 3.6 Chloride Level 112 H Carbon Dioxide Level 22 Anion Gap 6 Blood Urea Nitrogen 15 Creatinine 0.91 Est Glomerular Filtrat > 60 Rate mL/min Glucose Level 106 Calcium Level 8.3 L Bedside Glucose 110 Medications Medication Current Medications IV Flush (NS 3 ml) 3 ml PER PROTOCOL IV ; Start 02/06/19 at 05:30 Ondansetron HCl (Zofran Inj) 4 mg Q6H PRN IV NAUSEA/VOMITING; Start 02/06/19 at 05:30 Acetaminophen (Tylenol Tab) 650 mg Q6H PRN PO .PAIN 1-3 OR TEMP Last administered on 02/06/19at 21:57; Admin Dose 650 MG; Start 02/06/19 at 05:30 Acetaminophen/ Hydrocodone Bitart ([place] (5/325)) 1 tab Q6H PRN PO .MOD PAIN 4- 6 Last administered on 02/10/19at 08:43; Admin Dose 1 TAB; Start 02/06/19 at 05:30 Morphine Sulfate (morphine) 2 mg Q4H PRN IV .SEVERE PAIN 7-10; Start 02/06/19 at 05:30 Docusate Sodium (Colace) 100 mg Q12H PRN PO .CONSTIPATION; Start 02/06/19 at 05:30 Magnesium Hydroxide (Milk Of Mag) 30 ml DAILY PRN PO .CONSTIPATION Last administered on 02/09/19at 13:58; Admin Dose 30 ML; Start 02/06/19 at 05:30 Pantoprazole (Protonix Tab) 40 mg DAILY@06 PO Last administered on 02/10/19 06:01; Admin Dose 40 MG; Start 02/06/19 at 06:00 Sodium Chloride 1,000 ml @ 75 mls/hr [id number] IV Last administered on 02/09/19at 23:27; Admin Dose 75 MLS/HR; Start 02/06/19 at 05:21 Lorazepam (Ativan) 0.5 mg Q6H PRN IV ANXIETY; Start 02/06/19 at 05:30 Albuterol/ Ipratropium (Duoneb) 3 ml Q4H RESP THERAPY PRN HHN SHORTNESS OF BREATH; Start 02/06/19 at 05:30 Piperacillin Sod/ Tazobactam Sod 100 ml @ 200 mls/hr Q6 IVPB Last administered on 02/10/19at 06:01; Admin Dose 200 MLS/HR; Start 02/06/19 at 12:00; Stop 03/23/19 at 11:59 Vancomycin HCl (Vanco Iv Per Pharmacy) VANCOMYCIN PER PHARMACY NOTE XX ; Start 02/06/19 at 05:30; Stop 03/23/19 at 05:29 Hydralazine HCl (Apresoline) 10 mg Q6H PRN IV ELEVATED BLOOD PRESSURE Last administered on 02/10/19at 02:34; Admin Dose 10 MG; Start 02/06/19 at 05:30 Clonidine (Catapres) 0.1 mg Q6H PRN PO ELEVATED SYSTOLIC BP Last administered on 02/09/19at 15:16; Admin Dose 0.1 MG; Start 02/06/19 at 05:30 Nitroglycerin (Nitroglycerin (Sl Tab) 0.4 Mg) 1 tab Q5M PRN SL ANGINA; Start 02/06/19 at 05:30 Ascorbic Acid (Vitamin C) 500 mg DAILY PO Last administered on 02/10/19at 08:25; Admin Dose 500 MG; Start 02/06/19 at 09:00 Famotidine (Pepcid) 20 mg Q12 PO Last administered on 02/09/19at 21:23; Admin Dose 20 MG; Start 02/06/19 at 09:00 Gabapentin (Neurontin) 100 mg TID PO Last administered on 02/10/19at 08:25; Admin Dose 100 MG; Start 02/06/19 at 09:00 Metoprolol Tartrate (Lopressor) 75 mg BID PO Last administered on 02/10/19at 08:24; Admin Dose 75 MG; Start 02/06/19 at 09:00 Multivitamins Therapeutic (Theragran) 1 tab DAILY PO Last administered on 02/01 at 08:25; Admin Dose 1 TAB; Start 02/06/19 at 09:00 Miscellaneous Information Patients own medicat... BID@ XX ; Start 02/06/19 at 16:00 Diagnostic Test (Pha) (Accu-Chek) 1 XX ; Start 02/07/19 at 02:00 Insulin Glargine (Lantus) 20 units DAILY@0800 SC ; Start 02/06/19 at 15:30 Insulin Aspart (Novolog Insulin Pen) NOVOLOG *MILD* ALGORITHM WITH MEALS BEDTIME SC ; Start 02/06/19 at 18:00 Miscellaneous Information 1 ea NOTE XX ; Start 02/06/19 at 14:30 Glucose (Glutose) 15 gm Q15M PRN PO DECREASED GLUCOSE; Start 02/06/19 at 14:30 Glucose (Glutose) 22.5 gm Q15M PRN PO DECREASED GLUCOSE; Start 02/06/19 at 14:30 Dextrose (D50w Syringe) 25 ml Q15M PRN IV DECREASED GLUCOSE; Start 02/06/19 at 14:30 Dextrose (D50w Syringe) 50 ml Q15M PRN IV DECREASED GLUCOSE; Start 02/06/19 at 14:30 Glucagon (Glucagen) 1 mg Q15M PRN IM DECREASED GLUCOSE; Start 02/06/19 at 14:30 Glucose (Glutose) 15 gm Q15M PRN BUCCAL DECREASED GLUCOSE; Start 02/06/19 at 14:30 Collagenase (Santyl) 1 applic DAILY TOP Last administered on 02/10/19at 08:27; Admin Dose 1 APPLIC; Start 02/06/19 at 18:30 Collagenase (Santyl) 1 applic PRN PRN TOP WHEN SOILED; Start 02/06/19 at 18:30 Mupirocin (Bactroban) 1 applic BID TOP Last administered on 02/10/19 08:27; Admin Dose 1 APPLIC; Start 02/07/19 at 10:00 Lisinopril (Zestril) 40 mg DAILY PO Last administered on 02/10/19 08:26; Admin Dose 40 MG; Start 02/08/19 at 09:00 Metformin HCl (Glucophage) 1,000 mg WITH BREAKFAST DINNE PO Last administered on 02/10/19 08:23; Admin Dose 1,000 MG; Start 02/07/19 at 18:00 Clotrimazole (Lotrimin Cr) 1 applic BID TOP Last administered on 02/10/19 08:27; Admin Dose 1 APPLIC; Start 02/07/19 at 11:30 Vancomycin HCl 100 ml @ 100 mls/hr Q12H IVPB Last administered on 02/09/19 23:19; Admin Dose 100 MLS/HR; Start 02/08/19 at 11:00; Stop 03/23/19 at 10:59 Sodium Hypochlorite (Dakins Diluted ()) 1 applic DAILY TP Last administered on 02/10/19at 08:27; Admin Dose 1 APPLIC; Start 02/09/19 at 09:00 JEROME DELANEY Feb 10, 2019 08:52
--- NOTE | 2019-02-10 09:55 | PN ---
Date/Time of Note Date/Time of Note DATE: 02/10/19 TIME: 09:52 Assessment/Plan Lines/Catheters IV Catheter Type (from [facility]): Peripheral IV Chanel in Place (from [facility]): Yes Assessment/Plan Chief Complaint/Hosp Course 1. Multiple wounds s/p debridement of bilat buttock 02/07/19 -further debridement prn -local care> w dakins -frequent turning and off-loading -low air loss mattress -vitamin c -short term zinc -optimize nutrition -bilateral LE wounds: per podiatry 2. Osteomyelitis BLE -abx per ID 3. Hypertension -nutrition and medication management 4. Diabetes: hga1c: 6.5 -nutrition and medication management 5. Diabetic neuropathy -safety precs (ensure no lines/tubes, etc on skin) -diabetes optimization 6. Hypochromic anemia -monitor and tx as needed 7. Depression -psych optimization 8. Hypocalcemia: likely multifactorial -nutrition optimization -treat infections 9. Homelessness -social work Thank you, Subjective 24 Hr Interval Summary BP at times elevated. Labs noted. No fevers, chills, sob, congested cough, cp, palpitations, koch, dizziness, nausea, vomiting, change in bowel habits, dysuria. Exam/Review of Systems Vital Signs Vitals Vital Signs Date Temp Pulse Resp B/P (MAP) Pulse Ox O2 O2 Flow FiO2 Time Delivery Rate 02/10/19 98.1 78 16 180/81 96 Room Air 07:53 (114) Intake and Output 02/09/19 02/09/19 02/10/19 1515:00 23:00 07:00 IntakeIntake Total 440 ml 1450 ml 913 ml OutputOutput Total 1800 ml 1400 ml BalanceBalance -1360 ml 50 ml 913 ml Exam Free Text/Dictation Constitutional: alert, oriented, well developed Psych: nl mood/affect, anxiety (min) Head: normocephalic, atraumatic Eyes: nl conjunctiva, EOMI, nl lids, nl sclera ENMT: nl external ears & nose, nl lips & teeth, mucosa pink and moist Neck: supple, non-tender; No jvd Respiratory: normal air movement; No congested cough Cardiovascular: regular rate and rhythm, nl pulses; No edema Gastrointestinal: soft, non-tender Genitourinary - Male: nl penis, nl scrotum Musculoskeletal: nl extremities to inspection, other (contracted BLE) Extremities: normal pulses; No pitting pedal edema Neurological: nl mental status, nl speech, nl strength Skin: other (multiple wounds: bilat buttock: clean, scant drainage); BLE: woun ds: dry No rash or lesions Lymph: No nl lymph nodes Results Result Diagram: 02/10/19 0537 02/10/19 0537 MARIE GOODRICH MD Feb 10, 2019 09:55
[2019-02-10] MEDS: VANCOMYCIN 500 MG (PMX) 100 ML IVPB SCH (10:59)
[2019-02-10 13:39] VITALS: BP 142/62; PULSE 80; RESP 16
--- NOTE | 2019-02-10 13:56 | CONS ---
Assessment/Plan Assessment/Plan Hospital Course (Demo Recall) no acute changes patient is sleeping looks comfortable. No fevers. Left and right buttock wounds grew MRSA, Pseudomonas, Corynebacterium group JK Blood culture on admission grew staph species 1 out of 2 sets Antimicrobials: Vanco Zosyn ALLERGIES: HE IS NOT ALLERGIC TO ANY ANTIBIOTICS. PHYSICAL EXAMINATION: GENERAL: Well-nourished, well-developed elderly -English man who is in no distress. HEENT: Head is atraumatic, normocephalic. Sclerae are anicteric. Buccal mucosa is dry. NECK: Supple. CHEST: Rise symmetrical. Breath sounds diminished to bases. HEART: S1, S2. ABDOMEN: Soft. Bowel tones are present. EXTREMITIES: With bilateral lower extremities dressing intact. Assessment: 1. Bilateral lower extremities diabetic ulcerations 2. Left foot osteomyelitis 3. Diabetes with diabetic neuropathy 4. Bilateral buttocks ulcerations, status post debridement 5. Coag negative staph bacteremia consistent with contaminant Plan: Stable, change abx to Daptomycin and Gentamicin, continue wound care per podiatry and surgical teams. Anticipate dc on IV Vanco and IV Rocephin till March 22 to complete course for OM Consultation Date/Type/Reason Admit Date/Time Feb 06, 2019 at 03:18 Initial Consult Date 02/07/19 Type of Consult id Requesting Provider: MASOUD SOLANO DPM Date/Time of Note DATE: 02/10/19 TIME: 13:52 Exam/Review of Systems Exam Vitals Vital Signs Date Temp Pulse Resp B/P (MAP) Pulse Ox O2 O2 Flow FiO2 Time Delivery Rate 02/10/19 97.8 80 16 142/62 95 Room Air 13:39 (88) Intake and Output 02/09/19 02/09/19 02/10/19 1515:00 23:00 07:00 IntakeIntake Total 440 ml 1450 ml 913 ml OutputOutput Total 1800 ml 1400 ml BalanceBalance -1360 ml 50 ml 913 ml Results Result Diagram: 02/10/19 0537 02/10/19 0537 Results 24hrs Laboratory Tests Test 02/09/19 15:10 02/09/19 17:49 02/09/19 21:13 02/10/19 05:37 White Blood Count 5.6 # 5.2 Red Blood Count 3.42 L 3.13 L Hemoglobin 9.0 L 8.2 L Hematocrit 29.5 L 26.7 L Mean Corpuscular 86.3 85.3 Volume Mean Corpuscular 26.3 L 26.2 L Hemoglobin Mean Corpuscular 30.5 L 30.7 L Hemoglobin Concent Red Cell Distribution 14.2 14.5 Width Platelet Count 439 H 434 H Mean Platelet Volume 10.6 H 10.0 Immature Granulocytes 0.400 0.400 % Neutrophils % 70.2 69.2 Lymphocytes % 19.1 18.3 Monocytes % 7.6 8.8 Eosinophils % 1.8 2.5 Basophils % 0.9 0.8 Nucleated Red Blood 0.0 0.0 Cells % Immature Granulocytes 0.020 0.020 # Neutrophils # 3.9 3.6 Lymphocytes # 1.1 1.0 Monocytes # 0.4 0.5 Eosinophils # 0.1 0.1 Basophils # 0.1 0.0 Nucleated Red Blood 0.0 0.0 Cells # Sodium Level 140 140 Potassium Level 4.0 3.6 Chloride Level 110 112 H Carbon Dioxide Level 22 22 Anion Gap 8 6 Blood Urea Nitrogen 17 15 Creatinine 0.94 0.91 Est Glomerular > 60 > 60 Filtrat Rate mL/min Glucose Level 101 106 Calcium Level 8.7 8.3 L Bedside Glucose 102 125 Test 02/10/19 08:17 02/10/19 12:11 Bedside Glucose 110 128 Medications Medication Current Medications IV Flush (NS 3 ml) 3 ml PER PROTOCOL IV ; Start 02/06/19 at 05:30 Ondansetron HCl (Zofran Inj) 4 mg Q6H PRN IV NAUSEA/VOMITING; Start 02/06/19 at 05:30 Acetaminophen (Tylenol Tab) 650 mg Q6H PRN PO .PAIN 1-3 OR TEMP Last administered on 02/06/19at 21:57; Admin Dose 650 MG; Start 02/06/19 at 05:30 Acetaminophen/ Hydrocodone Bitart ([place] (5/325)) 1 tab Q6H PRN PO .MOD PAIN 4- 6 Last administered on 02/10/19at 08:43; Admin Dose 1 TAB; Start 02/06/19 at 05:30 Morphine Sulfate (morphine) 2 mg Q4H PRN IV .SEVERE PAIN 7-10; Start 02/06/19 at 05:30 Docusate Sodium (Colace) 100 mg Q12H PRN PO .CONSTIPATION; Start 02/06/19 at 05:30 Magnesium Hydroxide (Milk Of Mag) 30 ml DAILY PRN PO .CONSTIPATION Last administered on 02/09/19at 13:58; Admin Dose 30 ML; Start 02/06/19 at 05:30 Pantoprazole (Protonix Tab) 40 mg DAILY@06 PO Last administered on 02/10/19at 06:01; Admin Dose 40 MG; Start 02/06/19 at 06:00 Sodium Chloride 1,000 ml @ 75 mls/hr [id number] IV Last administered on 02/09/19at 23:27; Admin Dose 75 MLS/HR; Start 02/06/19 at 05:21 Lorazepam (Ativan) 0.5 mg Q6H PRN IV ANXIETY; Start 02/06/19 at 05:30 Albuterol/ Ipratropium (Duoneb) 3 ml Q4H RESP THERAPY PRN HHN SHORTNESS OF BREATH; Start 02/06/19 at 05:30 Piperacillin Sod/ Tazobactam Sod 100 ml @ 200 mls/hr Q6 IVPB Last administered on 02/10/19at 12:05; Admin Dose 200 MLS/HR; Start 02/06/19 at 12:00; Stop 03/23/19 at 11:59 Vancomycin HCl (Vanco Iv Per Pharmacy) VANCOMYCIN PER PHARMACY NOTE XX ; Start 02/06/19 at 05:30; Stop 03/23/19 at 05:29 Hydralazine HCl (Apresoline) 10 mg Q6H PRN IV ELEVATED BLOOD PRESSURE Last administered on 02/10/19at 11:17; Admin Dose 10 MG; Start 02/06/19 at 05:30 Clonidine (Catapres) 0.1 mg Q6H PRN PO ELEVATED SYSTOLIC BP Last administered on 02/09/19at 15:16; Admin Dose 0.1 MG; Start 02/06/19 at 05:30 Nitroglycerin (Nitroglycerin (Sl Tab) 0.4 Mg) 1 tab Q5M PRN SL ANGINA; Start 02/06/19 at 05:30 Ascorbic Acid (Vitamin C) 500 mg DAILY PO Last administered on 02/10/19at 08:25; Admin Dose 500 MG; Start 02/06/19 at 09:00 Famotidine (Pepcid) 20 mg Q12 PO Last administered on 02/09/19at 21:23; Admin Dose 20 MG; Start 02/06/19 at 09:00 Gabapentin (Neurontin) 100 mg TID PO Last administered on 02/10/19at 12:05; Admin Dose 100 MG; Start 02/06/19 at 09:00 Metoprolol Tartrate (Lopressor) 75 mg BID PO Last administered on 02/10/19at 08:24; Admin Dose 75 MG; Start 02/06/19 at 09:00 Multivitamins Therapeutic (Theragran) 1 tab DAILY PO Last administered on 02/10/19at 08:25; Admin Dose 1 TAB; Start 02/06/19 at 09:00 Miscellaneous Information Patients own medicat... BID@10,16 XX ; Start 02/06/19 at 16:00 Diagnostic Test (Pha) (Accu-Chek) 1 ea 02 XX ; Start 02/07/19 at 02:00 Insulin Glargine (Lantus) 20 units DAILY@0800 SC ; Start 02/06/19 at 15:30 Insulin Aspart (Novolog Insulin Pen) NOVOLOG *MILD* ALGORITHM WITH MEALS BEDTIME SC ; Start 02/06/19 at 18:00 Miscellaneous Information 1 ea NOTE XX ; Start 02/06/19 at 14:30 Glucose (Glutose) 15 gm Q15M PRN PO DECREASED GLUCOSE; Start 02/06/19 at 14:30 Glucose (Glutose) 22.5 gm Q15M PRN PO DECREASED GLUCOSE; Start 02/06/19 at 14:30 Dextrose (D50w Syringe) 25 ml Q15M PRN IV DECREASED GLUCOSE; Start 02/06/19 at 14:30 Dextrose (D50w Syringe) 50 ml Q15M PRN IV DECREASED GLUCOSE; Start 02/06/19 at 14:30 Glucagon (Glucagen) 1 mg Q15M PRN IM DECREASED GLUCOSE; Start 02/06/19 at 14:30 Glucose (Glutose) 15 gm Q15M PRN BUCCAL DECREASED GLUCOSE; Start 02/06/19 at 14:30 Collagenase (Santyl) 1 applic DAILY TOP Last administered on 02/10/19at 08:27; Admin Dose 1 APPLIC; Start 02/06/19 at 18:30 Collagenase (Santyl) 1 applic PRN PRN TOP WHEN SOILED; Start 02/06/19 at 18:30 Mupirocin (Bactroban) 1 applic BID TOP Last administered on 02/10/19 08:27; Admin Dose 1 APPLIC; Start 02/07/19 at 10:00 Lisinopril (Zestril) 40 mg DAILY PO Last administered on 02/10/19 08:26; Admin Dose 40 MG; Start 02/08/19 at 09:00 Metformin HCl (Glucophage) 1,000 mg WITH BREAKFAST DINNE PO Last administered on 02/10/19 08:23; Admin Dose 1,000 MG; Start 02/07/19 at 18:00 Clotrimazole (Lotrimin Cr) 1 applic BID TOP Last administered on 02/10/19 08:27; Admin Dose 1 APPLIC; Start 02/07/19 at 11:30 Vancomycin HCl 100 ml @ 100 mls/hr Q12H IVPB Last administered on 02/10/19 10:59; Admin Dose 100 MLS/HR; Start 02/08/19 at 11:00; Stop 03/23/19 at 10:59 Sodium Hypochlorite (Dakins Diluted (/40)) 1 applic DAILY TP Last administered on 02/10/19 08:27; Admin Dose 1 APPLIC; Start 02/09/19 at 09:00 CHANTALE RAMIREZ NP Feb 10, 2019 13:56
[2019-02-10] MEDS ORDERED: GENTAMICIN IV PER PHARMACY XX SCH (14:00)
[2019-02-10] MEDS: GENTAMICIN 360 MG in SOD CHLORIDE 0.9% 100 ML IVPB SCH (17:27)
[2019-02-10] MEDS: DAPTOMYCIN 450 MG in SOD CHLORIDE 0.9% 100 ML IVPB SCH (18:14)
[2019-02-10 19:45] VITALS: BP 179/89; PULSE 85; RESP 18
[2019-02-11 01:59] VITALS: BP 181/90; PULSE 75; RESP 18
[2019-02-11] MEDS: ACCU-CHEK XX SCH (02:00)
[2019-02-11] MEDS: hydrALAzine 20 MG INJ IV PRN ×2 (02:30→14:02)
[2019-02-11] MEDS: PANTOPRAZOLE (EC) 40 MG TAB PO SCH (05:10)
[2019-02-11] MEDS: SOD CHLORIDE 0.45% 1,000 ML IV SCH ×3 (05:10→21:11)
[2019-02-11 05:13] VITALS: BP 169/80
[2019-02-11 07:14] VITALS: BP 174/83; PULSE 75; RESP 15
[2019-02-11] MEDS: INSULIN ASPART [NOVOLOG] 3 ML PEN SC SCH ×4 (08:00→21:00)
[2019-02-11] MEDS: INSULIN GLARGINE [LANTus] (100 UNITS/ML) SYG SC SCH (08:00)
[2019-02-11] MEDS: metFORMIN 500 MG TAB PO SCH ×3 (08:18→17:05)
[2019-02-11] MEDS: GABAPENTIN 100 MG CAP PO SCH ×4 (08:19→21:00)
[2019-02-11] MEDS: ASCORBIC ACID 500 MG TAB PO SCH (08:19)
[2019-02-11] MEDS: MULTIVITAMINS THERAPEUTIC TAB PO SCH (08:19)
[2019-02-11] MEDS: FAMOTIDINE 20 MG TAB PO SCH ×2 (08:19→21:00)
[2019-02-11] MEDS: METOPROLOL 25 MG TAB PO SCH ×3 (08:19→21:00)
[2019-02-11] MEDS: LISINOPRIL 20 MG TAB PO SCH ×2 (08:20→09:00)
[2019-02-11] MEDS: COLLAGENASE 5 GM (UD JAR) TOP SCH (08:21)
[2019-02-11] MEDS: MUPIROCIN 2% 22 GM OINT TOP SCH ×2 (08:21→21:00)
[2019-02-11] MEDS: DAKINS 0.0125%(1/40) 473 ML SOLUTION TP SCH (08:21)
[2019-02-11] MEDS: CLOTRIMAZOLE 1% 30 GM CR TOP SCH ×2 (08:21→21:00)
--- NOTE | 2019-02-11 11:50 | PN ---
Date/Time of Note Date/Time of Note DATE: 02/11/19 TIME: 11:48 Assessment/Plan Lines/Catheters IV Catheter Type (from Nrs): Peripheral IV Chanel in Place (from Nrs): Yes Assessment/Plan Chief Complaint/Hosp Course 1. Multiple wounds s/p debridement of bilat buttock 02/07/19 -further debridement prn -local care> w dakins -frequent turning and off-loading -low air loss mattress -vitamin c -short term zinc -optimize nutrition -bilateral LE wounds: per podiatry 2. Osteomyelitis BLE -abx per ID 3. Hypertension -nutrition and medication management 4. Diabetes: hga1c: 6.5 -nutrition and medication management 5. Diabetic neuropathy -safety precs (ensure no lines/tubes, etc on skin) -diabetes optimization 6. Hypochromic anemia -monitor and tx as needed 7. Depression -psych optimization 8. Hypocalcemia: likely multifactorial -nutrition optimization -treat infections 9. 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 Patient seen and examined in collaboration with Dr. Kj Moran Subjective 24 Hr Interval Summary No acute events. No fevers, chills, sob, congested cough, cp, palpitations, koch, dizziness, nausea, vomiting, diarrhea, dysuria. Exam/Review of Systems Vital Signs Vitals Vital Signs Date Temp Pulse Resp B/P (MAP) Pulse Ox O2 O2 Flow FiO2 Time Delivery Rate 02/11/19 98.8 75 15 174/83 95 Room Air 07:14 (113) Intake and Output 02/10/19 02/10/19 02/11/19 1515:00 23:00 07:00 IntakeIntake Total 420 ml 609 ml 860 ml OutputOutput Total 552 ml 300 ml BalanceBalance -132 ml 309 ml 860 ml Exam Free Text/Dictation Constitutional: alert, oriented, well developed Psych: nl mood/affect, labile Head: normocephalic, atraumatic Eyes: nl conjunctiva, EOMI, nl lids, nl sclera ENMT: nl external ears & nose, nl lips & teeth, mucosa pink and moist Neck: supple, non-tender; No jvd Respiratory: normal air movement; No congested cough Cardiovascular: regular rate and rhythm, nl pulses; No edema Gastrointestinal: soft, non-tender Genitourinary - Male: nl penis, nl scrotum Musculoskeletal: nl extremities to inspection, other (contracted BLE) Extremities: normal pulses; No pitting pedal edema Neurological: nl mental status, nl speech, nl strength Skin: other (multiple wounds: bilat buttock: clean, scant drainage); BLE: wounds: dry No rash or lesions Lymph: No nl lymph nodes Results Result Diagram: 02/11/19 0733 02/11/19 0733 CALLY NOEL NP Feb 11, 2019 11:50
--- NOTE | 2019-02-11 12:40 | CONS ---
Assessment/Plan Assessment/Plan Hospital Course (Demo Recall) no acute changes Left and right buttock wounds grew MRSA, Pseudomonas, Enterococcus, Coryne bacterium group JK Blood culture on admission grew staph species 1 out of 2 sets Antimicrobials: Gent, Daptomycin ALLERGIES: HE IS NOT ALLERGIC TO ANY ANTIBIOTICS. PHYSICAL EXAMINATION: GENERAL: Well-nourished, well-developed elderly -[place] man who is in no distress. HEENT: Head is atraumatic, normocephalic. Sclerae are anicteric. Buccal mucosa is dry. NECK: Supple. CHEST: Rise symmetrical. Breath sounds diminished to bases. HEART: S1, S2. ABDOMEN: Soft. Bowel tones are present. EXTREMITIES: With bilateral lower extremities dressing intact. Assessment: 1. Bilateral lower extremities diabetic ulcerations 2. Left foot osteomyelitis 3. Diabetes with diabetic neuropathy 4. Bilateral buttocks ulcerations, status post debridement 5. Coag negative staph bacteremia consistent with contaminant Plan: Stable, continue Daptomycin and Gentamicin to complete 2 weeks, then change to IV Vanco and IV Rocephin till March 22 to complete course for OM, continue wound care per podiatry and surgical teams Consultation Date/Type/Reason Admit Date/Time Feb 06, 2019 at 03:18 Initial Consult Date 02/07/19 Type of Consult id Requesting Provider: MASOUD SOLANO DPM Date/Time of Note DATE: 02/11/19 TIME: 12:38 Exam/Review of Systems Exam Vitals Vital Signs Date Temp Pulse Resp B/P (MAP) Pulse Ox O2 O2 Flow FiO2 Time Delivery Rate 02/11/19 98.8 75 15 174/83 95 Room Air 07:14 (113) Intake and Output 02/10/19 02/10/19 02/11/19 1515:00 23:00 07:00 IntakeIntake Total 420 ml 609 ml 860 ml OutputOutput Total 552 ml 300 ml BalanceBalance -132 ml 309 ml 860 ml Results Result Diagram: 02/11/19 0733 02/11/19 0733 Results 24hrs Laboratory Tests Test 02/10/19 17:24 02/10/19 20:03 02/11/19 07:33 02/11/19 07:39 Bedside Glucose 154 152 White Blood Count 4.3 L Red Blood Count 3.05 L Hemoglobin 8.2 L Hematocrit 26.7 L Mean Corpuscular 87.5 Volume Mean Corpuscular 26.9 L Hemoglobin Mean Corpuscular 30.7 L Hemoglobin Concent Red Cell 14.6 H Distribution Width Platelet Count 406 Mean Platelet Volume 9.8 Immature 0.200 Granulocytes % Neutrophils % 54.7 Lymphocytes % 31.9 Monocytes % 8.7 Eosinophils % 3.3 Basophils % 1.2 Nucleated Red Blood 0.0 Cells % Immature 0.010 Granulocytes # Neutrophils # 2.3 Lymphocytes # 1.4 Monocytes # 0.4 Eosinophils # 0.1 Basophils # 0.1 Nucleated Red Blood 0.0 Cells # Sodium Level 140 Potassium Level 3.6 Chloride Level 113 H Carbon Dioxide Level 22 Anion Gap 5 Blood Urea Nitrogen 13 Creatinine 0.90 Est Glomerular > 60 Filtrat Rate mL/min Glucose Level 109 Calcium Level 8.4 Random Gentamicin 2.1 Level Test 02/11/19 07:40 02/11/19 08:10 02/11/19 12:13 Creatine Kinase 50 Bedside Glucose 108 119 Medications Medication Current Medications IV Flush (NS 3 ml) 3 ml PER PROTOCOL IV ; Start 02/06/19 at 05:30 Ondansetron HCl (Zofran Inj) 4 mg Q6H PRN IV NAUSEA/VOMITING; Start 02/06/19 at 05:30 Acetaminophen (Tylenol Tab) 650 mg Q6H PRN PO .PAIN 1-3 OR TEMP Last administered on 02/06/19at 21:57; Admin Dose 650 MG; Start 02/06/19 at 05:30 Acetaminophen/ Hydrocodone Bitart ([place] (5/325)) 1 tab Q6H PRN PO .MOD PAIN 4- 6 Last administered on 02/10/19at 08:43; Admin Dose 1 TAB; Start 02/06/19 at 05:30 Morphine Sulfate (morphine) 2 mg Q4H PRN IV .SEVERE PAIN 7-10; Start 02/06/19 at 05:30 Docusate Sodium (Colace) 100 mg Q12H PRN PO .CONSTIPATION; Start 02/06/19 at 05:30 Magnesium Hydroxide (Milk Of Mag) 30 ml DAILY PRN PO .CONSTIPATION Last a dministered on 02/09/19at 13:58; Admin Dose 30 ML; Start 02/06/19 at 05:30 Pantoprazole (Protonix Tab) 40 mg DAILY@06 PO Last administered on 02/10/19 06:01; Admin Dose 40 MG; Start 02/06/19 at 06:00 Sodium Chloride 1,000 ml @ 75 mls/hr [id number] IV Last administered on 02/11/19 05:10; Admin Dose 75 MLS/HR; Start 02/06/19 at 05:21 Lorazepam (Ativan) 0.5 mg Q6H PRN IV ANXIETY; Start 02/06/19 at 05:30 Albuterol/ Ipratropium (Duoneb) 3 ml Q4H RESP THERAPY PRN HHN SHORTNESS OF BREATH; Start 02/06/19 at 05:30 Hydralazine HCl (Apresoline) 10 mg Q6H PRN IV ELEVATED BLOOD PRESSURE Last administered on 02/11/19 02:30; Admin Dose 10 MG; Start 02/06/19 at 05:30 Clonidine (Catapres) 0.1 mg Q6H PRN PO ELEVATED SYSTOLIC BP Last administered on 02/09/19 15:16; Admin Dose 0.1 MG; Start 02/06/19 at 05:30 Nitroglycerin (Nitroglycerin (Sl Tab) 0.4 Mg) 1 tab Q5M PRN SL ANGINA; Start 02/06/19 at 05:30 Ascorbic Acid (Vitamin C) 500 mg DAILY PO Last administered on 02/10/19 08:25; Admin Dose 500 MG; Start 02/06/19 at 09:00 Famotidine (Pepcid) 20 mg Q12 PO Last administered on 02/09/19 21:23; Admin Dose 20 MG; Start 02/06/19 at 09:00 Gabapentin (Neurontin) 100 mg TID PO Last administered on 02/10/19 20:06; Admin Dose 100 MG; Start 02/06/19 at 09:00 Metoprolol Tartrate (Lopressor) 75 mg BID PO Last administered on 02/10/19 20:04; Admin Dose 75 MG; Start 02/06/19 at 09:00 Multivitamins Therapeutic (Theragran) 1 tab DAILY PO Last administered on 02/10/19 08:25; Admin Dose 1 TAB; Start 02/06/19 at 09:00 Miscellaneous Information Patients own medicat... BID@10,16 XX ; Start 02/06/19 at 16:00 Diagnostic Test (Pha) (Accu-Chek) 1 ea 02 XX ; Start 02/07/19 at 02:00 Insulin Glargine (Lantus) 20 units DAILY@0800 SC ; Start 02/06/19 at 15:30 Insulin Aspart (Novolog Insulin Pen) NOVOLOG *MILD* ALGORITHM WITH MEALS BEDTIME SC ; Start 02/06/19 at 18:00 Miscellaneous Information 1 ea NOTE XX ; Start 02/06/19 at 14:30 Glucose (Glutose) 15 gm Q15M PRN PO DECREASED GLUCOSE; Start 02/06/19 at 14:30 Glucose (Glutose) 22.5 gm Q15M PRN PO DECREASED GLUCOSE; Start 02/06/19 at 14:30 Dextrose (D50w Syringe) 25 ml Q15M PRN IV DECREASED GLUCOSE; Start 02/06/19 at 14:30 Dextrose (D50w Syringe) 50 ml Q15M PRN IV DECREASED GLUCOSE; Start 02/06/19 at 14:30 Glucagon (Glucagen) 1 mg Q15M PRN IM DECREASED GLUCOSE; Start 02/06/19 at 14:30 Glucose (Glutose) 15 gm Q15M PRN BUCCAL DECREASED GLUCOSE; Start 02/06/19 at 14: 30 Collagenase (Santyl) 1 applic DAILY TOP Last administered on 02/11/19at 08:21; Admin Dose 1 APPLIC; Start 02/06/19 at 18:30 Collagenase (Santyl) 1 applic PRN PRN TOP WHEN SOILED; Start 02/06/19 at 18:30 Mupirocin (Bactroban) 1 applic BID TOP Last administered on 02/11/19at 08:21; Admin Dose 1 APPLIC; Start 02/07/19 at 10:00 Lisinopril (Zestril) 40 mg DAILY PO Last administered on 02/10/19at 08:26; Admin Dose 40 MG; Start 02/08/19 at 09:00 Metformin HCl (Glucophage) 1,000 mg WITH BREAKFAST DINNE PO Last administered on 02/11/19at 08:18; Admin Dose 1,000 MG; Start 02/07/19 at 18:00 Clotrimazole (Lotrimin Cr) 1 applic BID TOP Last administered on 02/11/19at 08:21; Admin Dose 1 APPLIC; Start 02/07/19 at 11:30 Sodium Hypochlorite (Dakins Diluted ()) 1 applic DAILY TP Last administered on 02/11/19at 08:21; Admin Dose 1 APPLIC; Start 02/09/19 at 09:00 Daptomycin 450 mg/ Sodium Chloride 100 ml @ 200 mls/hr Q24H IVPB Last administered on 02/10/19at 18:14; Admin Dose 200 MLS/HR; Start 02/10/19 at 16:00 Gentamicin Sulfate (Gentamicin Iv Per Pharmacy) GENTAMICIN PER PHARMACY NOTE XX ; Start 02/10/19 at 14:00 Gentamicin Sulfate 360 mg/ Sodium Chloride 109 ml @ 109 mls/hr Q24H IVPB Last administered on 02/10/19at 17:27; Admin Dose 109 MLS/HR; Start 02/10/19 at 16:30 Miscellaneous Information (*Rx Drug Level Order Reminder*) GENT TROUGH @ 1,530 1530 ONCE XX ; Start 02/12/19 at 15:30; Stop 02/12/19 at 15:31 CHANTALE RAMIREZ NP Feb 11, 2019 12:40
[2019-02-11 13:49] VITALS: BP 200/92; PULSE 86; RESP 18
[2019-02-11] MEDS: NIFEdipine (XL) 30 MG TAB PO SCH ×2 (15:00→21:23)
[2019-02-11 15:22] VITALS: BP 181/79; PULSE 86
[2019-02-11] MEDS: DAPTOMYCIN 450 MG in SOD CHLORIDE 0.9% 100 ML IVPB SCH (15:31)
--- NOTE | 2019-02-11 17:09 | PSY ---
Date/Time of Note Date/Time of Note DATE: 02/11/19 TIME: 17:04 Psychiatric Subjective Eval Consent Pt consented to telemedicine: No Subjective Evaluation Patient location: inpatient Chief Complaint: worsening diabetic ulcers on vicky feet History of present illness Patient is a 63-year-old male with past medical history of hypertension, sacral decubitus ulcers, diabetes, and osteomyelitis came in with diabetic foot ulcers on his bilateral feet. [id number] evaluation, patient is very paranoid and suspicious talking to himself responding to unseen person however he is very uncooperative with interview, states he does not want to be evaluated. 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 Status: Chronic (2) Diabetes mellitus type 2 in nonobese Status: Chronic (3) Diabetic peripheral neuropathy associated with type 2 diabetes mellitus Status: Chronic (4) Essential hypertension Status: Chronic (5) Foot pain Status: Acute (6) Iron deficiency anemia Status: Chronic (7) MRSA (methicillin resistant staph aureus) culture positive Status: Chronic (8) Open wound of both lower extremities with complication Status: Acute (9) Open wound of both lower extremities with complication Status: Acute (10) Osteomyelitis Status: Acute (11) Osteomyelitis of left foot Status: Chronic (12) PVD (peripheral vascular disease) Status: Chronic (13) Sacral decubitus ulcer, stage III Status: Chronic (14) Vitamin D deficiency Status: Chronic (15) Wound infection Status: Acute Allergies: Coded Allergies: No Known Allergy (Unverified , 10/22/18) Substance Abuse Substance abuse history: No Prior substance abuse treatmen: No Social History Marital status: other DPA/Conservatorship: No Psychiatric Objective Eval Review of Systems: Review of Systems: Not Applicable Physical Examination: Physical Examination: Not Applicable Energy: Adequate Interest: Adequate Mental Status Examination: Appearance: Poor Hygiene Eye Contact: Poor Behavior: Hostile, Suspicious, Guarded Speech: Soft AFFECT: Anxious Mood: Irritable Though Process: Linear Orientation: x3 Cognition: Alert Insight: Moderate Judgement: Moderate Attention Span: Distractible Laboratory Results Laboratory Tests Test 02/09/19 17:49 02/09/19 21:13 02/10/19 05:37 02/10/19 08:17 Bedside Glucose 102 mg/dL 125 mg/dL 110 mg/dL White Blood Count 5.2 10^3/ul Red Blood Count 3.13 10^6/ul Hemoglobin 8.2 g/dl Hematocrit 26.7 % Mean Corpuscular 85.3 fl Volume Mean Corpuscular 26.2 pg Hemoglobin Mean Corpuscular 30.7 g/dl Hemoglobin Concent Red Cell 14.5 % Distribution Width Platelet Count 434 10^3/UL Mean Platelet 10.0 fl Volume Immature 0.400 % Granulocytes % Neutrophils % 69.2 % Lymphocytes % 18.3 % Monocytes % 8.8 % Eosinophils % 2.5 % Basophils % 0.8 % Nucleated Red 0.0 /100WBC Blood Cells % Immature 0.020 10^3/ul Granulocytes # Neutrophils # 3.6 10^3/ul Lymphocytes # 1.0 10^3/ul Monocytes # 0.5 10^3/ul Eosinophils # 0.1 10^3/ul Basophils # 0.0 10^3/ul Nucleated Red 0.0 10^3/ul Blood Cells # Sodium Level 140 mmol/L Potassium Level 3.6 mmol/L Chloride Level 112 mmol/L Carbon Dioxide 22 mmol/L Level Anion Gap 6 Blood Urea 15 mg/dl Nitrogen Creatinine 0.91 mg/dl Est Glomerular > 60 mL/min Filtrat Rate mL/min Glucose Level 106 mg/dl Calcium Level 8.3 mg/dl Test 02/10/19 12:11 02/10/19 17:24 02/10/19 20:03 02/11/19 07:33 Bedside Glucose 128 mg/dL 154 mg/dL 152 mg/dL White Blood Count 4.3 10^3/ul Red Blood Count 3.05 10^6/ul Hemoglobin 8.2 g/dl Hematocrit 26.7 % Mean Corpuscular 87.5 fl Volume Mean Corpuscular 26.9 pg Hemoglobin Mean Corpuscular 30.7 g/dl Hemoglobin Concent Red Cell 14.6 % Distribution Width Platelet Count 406 10^3/UL Mean Platelet 9.8 fl Volume Immature 0.200 % Granulocytes % Neutrophils % 54.7 % Lymphocytes % 31.9 % Monocytes % 8.7 % Eosinophils % 3.3 % Basophils % 1.2 % Nucleated Red 0.0 /100WBC Blood Cells % Immature 0.010 10^3/ul Granulocytes # Neutrophils # 2.3 10^3/ul Lymphocytes # 1.4 10^3/ul Monocytes # 0.4 10^3/ul Eosinophils # 0.1 10^3/ul Basophils # 0.1 10^3/ul Nucleated Red 0.0 10^3/ul Blood Cells # Sodium Level 140 mmol/L Potassium Level 3.6 mmol/L Chloride Level 113 mmol/L Carbon Dioxide 22 mmol/L Level Anion Gap 5 Blood Urea 13 mg/dl Nitrogen Creatinine 0.90 mg/dl Est Glomerular > 60 mL/min Filtrat Rate mL/min Glucose Level 109 mg/dl Calcium Level 8.4 mg/dl Test 02/11/19 07:39 02/11/19 07:40 02/11/19 08:10 02/11/19 12:13 Random Gentamicin 2.1 ug/ml Level Creatine Kinase 50 IU/L Bedside Glucose 108 mg/dL 119 mg/dL Test 02/11/19 17:02 Bedside Glucose 93 mg/dL Assessment and Plan Assessment/Diagnosis Diagnosis Psychosis NOS Recommendation/Plan Medication Management Refused full interview so no medication is ordered Multiple antipsychotics: No Discharge Disposition: Other Legal Status: Voluntary (Does not meet criteria for 5150 hold) NASRA BLANCO NP Feb 11, 2019 17:09
[2019-02-11] MEDS: GENTAMICIN 360 MG in SOD CHLORIDE 0.9% 100 ML IVPB SCH (17:24)
[2019-02-11 20:00] VITALS: BP 189/85; PULSE 88; RESP 19
[2019-02-12] MEDS: ACCU-CHEK XX SCH (01:59)
[2019-02-12] MEDS: PANTOPRAZOLE (EC) 40 MG TAB PO SCH (05:02)
--- NOTE | 2019-02-12 06:31 | EN ---
Date/Time of Note Date/Time of Note DATE: 02/12/19 TIME: 06:28 Event Note Medicine Medicine Event Note SUBJECTIVE: paranoid, refusing meds, feels nurses are plotting against him to give him constipation, BP high due to med refusal OBJECTIVE: Vital signs-see below PHYSICAL EXAM: Constitutional: Chronically ill looking male, not in acute distress. HEENT: Head atraumatic and normocephalic. CHEST: Clear and good breath sounds equally. No wheezing. No rhonchi. HEART: S1, S2. Regular rate and rhythm. ABDOMEN: Soft/non tender with no rebound tenderness. Bowel sounds were present. EXTREMITIES: Crow.LEs w/multiple dry wounds/Swelling. +Fungi nails.Generalized weakness/mild contractures x4 extremities. NEUROLOGIC: Highly temperamental. Alert and oriented x3. Generalized weakness to all 4 extremities with contractures. ASSESSMENT AND PLAN:63 yo wheelchair bounded M w/dm2/dm ulcers/decubs admitted w/worsening crow LEs wouds .. Bilateral LE diabetic ulcers -Wound care -Continue antimicrobials. -multiorganisms from wound cultures - 1consistent with contaminant -continue abx and wound care Osteomyelitis -Patient on 6 weeks IV antibiotics which he has to complete. DMII --Stable glycemic trends - refused insulin inhouse -Metformin Peripheral neuropathy -cont. gabapentin Sacral decubitus ulcers -s/p debridement of bilat buttock 02/07/19 -further debridement prn -local care per surgery instructions, appreciate input -frequent turning and off-loading -low air loss mattress -vitamin c -short term zinc -optimize nutrition Onychomycosis -Clotrimazole cream -Podiatry f/u for PRN nail debridement Hypertension -stable -cont.BB/ACEi Anemia w/ iron deficiency+ chronic inflammation -stable -cont.oral iron Debility w/contractures -wheelchair bounded -SNF planning -PT Chronic neurogenic bladder with indwelling arango -change arango q 30days Homelessness -product development worker follow-up Psych d/o and paranoia -psych consult DVT prophylaxis: Refused ATC Disposition: placement pending Vital Signs Date Temp Pulse Resp B/P (MAP) Pulse Ox O2 O2 Flow FiO2 Time Delivery Rate 02/11/19 98.8 75 15 174/83 95 Room Air 07:14 (113) Intake and Output 02/10/19 02/10/1902/11/19 1515:00 23:00 07:00 IntakeIntake Total 420 ml 609 ml 860 ml OutputOutput Total 552 ml 300 ml BalanceBalance -132 ml 309 ml 860 ml Results Result Diagram: 02/11/19 0733 02/11/19 0733 Results 24hrs Laboratory Tests Test 02/10/19 17:24 02/10/19 20:03 02/11/19 07:33 02/11/19 07:39 Bedside Glucose 154 152 White Blood Count 4.3 L Red Blood Count 3.05 L Hemoglobin 8.2 L Hematocrit 26.7 L Mean Corpuscular 87.5 Volume Mean Corpuscular 26.9 L Hemoglobin Mean Corpuscular 30.7 L Hemoglobin Concent Red Cell 14.6 H Distribution Width Platelet Count 406 Mean Platelet Volume 9.8 Immature 0.200 Granulocytes % Neutrophils % 54.7 Lymphocytes % 31.9 Monocytes % 8.7 Eosinophils % 3.3 Basophils % 1.2 Nucleated Red Blood 0.0 Cells % Immature 0.010 Granulocytes # Neutrophils # 2.3 Lymphocytes # 1.4 Monocytes # 0.4 Eosinophils # 0.1 Basophils # 0.1 Nucleated Red Blood 0.0 Cells # Sodium Level 140 Potassium Level 3.6 Chloride Level 113 H Carbon Dioxide Level 22 Anion Gap 5 Blood Urea Nitrogen 13 Creatinine 0.90 Est Glomerular > 60 Filtrat Rate mL/min Glucose Level 109 Calcium Level 8.4 Random Gentamicin 2.1 Level Test 02/11/19 07:40 02/11/19 08:10 02/11/19 12:13 Creatine Kinase 50 Bedside Glucose 108 119 Medications Medication Current Medications IV Flush (NS 3 ml) 3 ml PER PROTOCOL IV ; Start 02/06/19 at 05:30 Ondansetron HCl (Zofran Inj) 4 mg Q6H PRN IV NAUSEA/VOMITING; Start 02/06/19 at 05:30 Acetaminophen (Tylenol Tab) 650 mg Q6H PRN PO .PAIN 1-3 OR TEMP Last administered on 02/06/19at 21:57; Admin Dose 650 MG; Start 02/06/19 at 05:30 Acetaminophen/ Hydrocodone Bitart ([place] (5/325)) 1 tab Q6H PRN PO .MOD PAIN 4- 6 Last administered on 02/10/19at 08:43; Admin Dose 1 TAB; Start 02/06/19 at 05:30 Morphine Sulfate (morphine) 2 mg Q4H PRN IV .SEVERE PAIN 7-10; Start 02/06/19 at 05:30 Docusate Sodium (Colace) 100 mg Q12H PRN PO .CONSTIPATION; Start 02/06/19 at 05:30 Magnesium Hydroxide (Milk Of Mag) 30 ml DAILY PRN PO .CONSTIPATION Last administered on 02/09/19at 13:58; Admin Dose 30 ML; Start 02/06/19 at 05:30 Pantoprazole (Protonix Tab) 40 mg DAILY@06 PO Last administered on 02/10/19at 06:01; Admin Dose 40 MG; Start 02/06/19 at 06:00 Sodium Chloride 1,000 ml @ 75 mls/hr [id number] IV Last administered on 02/11/19at 05:10; Admin Dose 75 MLS/HR; Start 02/06/19 at 05:21 Lorazepam (Ativan) 0.5 mg Q6H PRN IV ANXIETY; Start 02/06/19 at 05:30 Albuterol/ Ipratropium (Duoneb) 3 ml Q4H RESP THERAPY PRN HHN SHORTNESS OF BREATH; Start 02/06/19 at 05:30 Hydralazine HCl (Apresoline) 10 mg Q6H PRN IV ELEVATED BLOOD PRESSURE Last administered on 02/11/19at 02:30; Admin Dose 10 MG; Start 02/06/19 at 05:30 Clonidine (Catapres) 0.1 mg Q6H PRN PO ELEVATED SYSTOLIC BP Last administered on 02/09/19at 15:16; Admin Dose 0.1 MG; Start 02/06/19 at 05:30 Nitroglycerin (Nitroglycerin (Sl Tab) 0.4 Mg) 1 tab Q5M PRN SL ANGINA; Start 02/06/19 at 05:30 Ascorbic Acid (Vitamin C) 500 mg DAILY PO Last administered on 02/10/19at 08:25; Admin Dose 500 MG; Start 02/06/19 at 09:00 Famotidine (Pepcid) 20 mg Q12 PO Last administered on 02/09/19at 21:23; Admin Dose 20 MG; Start 02/06/19 at 09:00 Gabapentin (Neurontin) 100 mg TID PO Last administered on 6/10/19at 20:06; Admin Dose 100 MG; Start 02/06/19 at 09:00 Metoprolol Tartrate (Lopressor) 75 mg BID PO Last administered on 02/10/19at 20:04; Admin Dose 75 MG; Start 02/06/19 at 09:00 Multivitamins Therapeutic (Theragran) 1 tab DAILY PO Last administered on 02/10/19at 08:25; Admin Dose 1 TAB; Start 02/06/19 at 09:00 Miscellaneous Information Patients own medicat... BID@10,16 XX ; Start 02/06/19 at 16:00 Diagnostic Test (Pha) (Accu-Chek) 1 ea 02 XX ; Start 02/07/19 at 02:00 Insulin Glargine (Lantus) 20 units DAILY@0800 SC ; Start 02/06/19 at 15:30 Insulin Aspart (Novolog Insulin Pen) NOVOLOG *MILD* ALGORITHM WITH MEALS BEDTIME SC ; Start 02/06/19 at 18:00 Miscellaneous Information 1 ea NOTE XX ; Start 02/06/19 at 14:30 Glucose (Glutose) 15 gm Q15M PRN PO DECREASED GLUCOSE; Start 02/06/19 at 14:30 Glucose (Glutose) 22.5 gm Q15M PRN PO DECREASED GLUCOSE; Start 02/06/19 at 14:30 Dextrose (D50w Syringe) 25 ml Q15M PRN IV DECREASED GLUCOSE; Start 02/06/19 at 14:30 Dextrose (D50w Syringe) 50 ml Q15M PRN IV DECREASED GLUCOSE; Start 02/06/19 at 14:30 Glucagon (Glucagen) 1 mg Q15M PRN IM DECREASED GLUCOSE; Start 02/06/19 at 14:30 Glucose (Glutose) 15 gm Q15M PRN BUCCAL DECREASED GLUCOSE; Start 02/06/19 at 14:30 Collagenase (Santyl) 1 applic DAILY TOP Last administered on 02/11/19at 08:21; Admin Dose 1 APPLIC; Start 02/06/19 at 18:30 Collagenase (Santyl) 1 applic PRN PRN TOP WHEN SOILED; Start 02/06/19 at 18:30 Mupirocin (Bactroban) 1 applic BID TOP Last administered on 02/11/19at 08:21; Admin Dose 1 APPLIC; Start 02/07/19 at 10:00 Lisinopril (Zestril) 40 mg DAILY PO Last administered on 02/10/19 08:26; Admin Dose 40 MG; Start 02/08/19 at 09:00 Metformin HCl (Glucophage) 1,000 mg WITH BREAKFAST DINNE PO Last administered on 02/11/19 08:18; Admin Dose 1,000 MG; Start 02/07/19 at 18:00 Clotrimazole (Lotrimin Cr) 1 applic BID TOP Last administered on 02/11/19 08:21; Admin Dose 1 APPLIC; Start 02/07/19 at 11:30 Sodium Hypochlorite (Dakins Diluted ()) 1 applic DAILY TP Last administered on 02/11/19 08:21; Admin Dose 1 APPLIC; Start 02/09/19 at 09:00 Daptomycin 450 mg/ Sodium Chloride 100 ml @ 200 mls/hr Q24H IVPB Last administered on 02/10/19 18:14; Admin Dose 200 MLS/HR; Start 02/10/19 at 16:00 Gentamicin Sulfate (Gentamicin Iv Per Pharmacy) GENTAMICIN PER PHARMACY NOTE XX ; Start 02/10/19 at 14:00 Gentamicin Sulfate 360 mg/ Sodium Chloride 109 ml @ 109 mls/hr Q24H IVPB Last administered on 02/10/19 17:27; Admin Dose 109 MLS/HR; Start 02/10/19 at 16:30 Miscellaneous Information (*Rx Drug Level Order Reminder*) GENT TROUGH @ 1 ,530 1530 ONCE XX ; Start 02/12/19 at 15:30; Stop 02/12/19 at 15:31 JEROME DELANEY Feb 12, 2019 06:31
[2019-02-12] MEDS: INSULIN ASPART [NOVOLOG] 3 ML PEN SC SCH ×4 (08:00→20:23)
[2019-02-12] MEDS: INSULIN GLARGINE [LANTus] (100 UNITS/ML) SYG SC SCH (08:00)
[2019-02-12] MEDS: NIFEdipine (XL) 30 MG TAB PO SCH ×2 (08:33→20:23)
[2019-02-12] MEDS: metFORMIN 500 MG TAB PO SCH ×2 (08:33→18:20)
[2019-02-12] MEDS: LISINOPRIL 20 MG TAB PO SCH (08:33)
[2019-02-12] MEDS: FAMOTIDINE 20 MG TAB PO SCH ×2 (08:34→20:21)
[2019-02-12] MEDS: METOPROLOL 25 MG TAB PO SCH ×3 (08:34→20:28)
[2019-02-12] MEDS: GABAPENTIN 100 MG CAP PO SCH ×3 (08:34→20:21)
[2019-02-12] MEDS: MUPIROCIN 2% 22 GM OINT TOP SCH ×2 (08:35→20:25)
[2019-02-12] MEDS: ASCORBIC ACID 500 MG TAB PO SCH (08:35)
[2019-02-12] MEDS: MULTIVITAMINS THERAPEUTIC TAB PO SCH (08:35)
[2019-02-12] MEDS: CLOTRIMAZOLE 1% 30 GM CR TOP SCH ×2 (08:35→20:25)
[2019-02-12] MEDS: DAKINS 0.0125%(1/40) 473 ML SOLUTION TP SCH (08:36)
[2019-02-12] MEDS: COLLAGENASE 5 GM (UD JAR) TOP SCH (08:36)
[2019-02-12] MEDS: POLYETHYLENE GLYCOL 17 GM PACKET PO SCH (12:40)
--- NOTE | 2019-02-12 13:21 | CONS ---
Assessment/Plan Assessment/Plan Hospital Course (Demo Recall) Sleeping, looks comfortable, no fevers Left and right buttock wounds grew MRSA, Pseudomonas, Enterococcus, Corynebacterium group JK Blood culture on admission grew staph species 1 out of 2 sets Antimicrobials: Gent, Daptomycin ALLERGIES: HE IS NOT ALLERGIC TO ANY ANTIBIOTICS. PHYSICAL EXAMINATION: GENERAL: Well-developed elderly -[place]ian man who is in no distress. HEENT: Head is atraumatic, normocephalic. Sclerae are anicteric. Buccal mucosa is dry. NECK: Supple. CHEST: Rise symmetrical. Breath sounds diminished to bases. HEART: S1, S2. ABDOMEN: Soft. Bowel tones are present. EXTREMITIES: With bilateral lower extremities dressing intact. Assessment: 1. Bilateral lower extremities diabetic ulcerations 2. Left foot osteomyelitis 3. Diabetes with diabetic neuropathy 4. Bilateral buttocks ulcerations, status post debridement 5. Coag negative staph bacteremia consistent with contaminant Plan: Remains unchanged, continue Daptomycin and Gentamicin to complete 2 weeks==> last dose February 23, then change to IV Vanco and IV Rocephin till March 22 to complete course for OM, continue wound care per podiatry and surgical teams Consultation Date/Type/Reason Admit Date/Time Feb 06, 2019 at 03:18 Initial Consult Date 02/07/19 Type of Consult id Requesting Provider: MASOUD SOLANO DPM Date/Time of Note DATE: 02/12/19 TIME: 13:19 Exam/Review of Systems Exam Vitals Vital Signs Date Temp Pulse Resp B/P (MAP) Pulse Ox O2 O2 Flow FiO2 Time Delivery Rate 02/11/19 98.6 88 19 189/85 96 20:00 (119) 02/11/19 Room Air 13:49 Intake and Output 02/11/19 02/11/19 02/12/19 1515:00 23:00 07:00 IntakeIntake Total 1609 ml 600 ml OutputOutput Total 700 ml BalanceBalance 909 ml 600 ml Results Result Diagram: 02/12/19 0654 02/12/19 0654 Results 24hrs Laboratory Tests Test 02/11/19 17:02 02/11/19 21:19 02/12/19 06:54 02/12/19 08:24 Bedside Glucose 93 137 101 White Blood Count 4.5 L Red Blood Count 3.36 L Hemoglobin 8.8 L Hematocrit 29.0 L Mean Corpuscular 86.3 Volume Mean Corpuscular 26.2 L Hemoglobin Mean Corpuscular 30.3 L Hemoglobin Concent Red Cell 14.6 H Distribution Width Platelet Count 443 H Mean Platelet Volume 9.6 Immature 0.200 Granulocytes % Neutrophils % 54.8 Lymphocytes % 31.1 Monocytes % 9.2 Eosinophils % 3.4 Basophils % 1.3 Nucleated Red Blood 0.0 Cells % Immature 0.010 Granulocytes # Neutrophils # 2.5 Lymphocytes # 1.4 Monocytes # 0.4 Eosinophils # 0.2 Basophils # 0.1 Nucleated Red Blood 0.0 Cells # Sodium Level 141 Potassium Level 3.5 Chloride Level 113 H Carbon Dioxide Level 21 Anion Gap 7 Blood Urea Nitrogen 10 Creatinine 0.88 Est Glomerular > 60 Filtrat Rate mL/min Glucose Level 96 Calcium Level 8.8 Test 02/12/19 12:30 Bedside Glucose 103 Medications Medication Current Medications IV Flush (NS 3 ml) 3 ml PER PROTOCOL IV ; Start 02/06/19 at 05:30 Ondansetron HCl (Zofran Inj) 4 mg Q6H PRN IV NAUSEA/VOMITING; Start 02/06/19 at 05:30 Acetaminophen (Tylenol Tab) 650 mg Q6H PRN PO .PAIN 1-3 OR TEMP Last administered on 02/06/19at 21:57; Admin Dose 650 MG; Start 02/06/19 at 05:30 Acetaminophen/ Hydrocodone Bitart ([place] (5/325)) 1 tab Q6H PRN PO .MOD PAIN 4- 6 Last administered on 02/10/19at 08:43; Admin Dose 1 TAB; Start 02/06/19 at 05:30 Morphine Sulfate (morphine) 2 mg Q4H PRN IV .SEVERE PAIN 7-10; Start 02/06/19 at 05:30 Docusate Sodium (Colace) 100 mg Q12H PRN PO .CONSTIPATION; Start 02/06/19 at 05:30 Magnesium Hydroxide (Milk Of Mag) 30 ml DAILY PRN PO .CONSTIPATION Last administered on 02/09/19at 13:58; Admin Dose 30 ML; Start 02/06/19 at 05:30 Pantoprazole (Protonix Tab) 40 mg DAILY@06 PO Last administered on 02/10/19at 06:01; Admin Dose 40 MG; Start 02/06/19 at 06:00 Lorazepam (Ativan) 0.5 mg Q6H PRN IV ANXIETY; Start 02/06/19 at 05:30 Albuterol/ Ipratropium (Duoneb) 3 ml Q4H RESP THERAPY PRN HHN SHORTNESS OF BREATH; Start 02/06/19 at 05:30 Hydralazine HCl (Apresoline) 10 mg Q6H PRN IV ELEVATED BLOOD PRESSURE Last administered on 02/11/19at 14:02; Admin Dose 10 MG; Start 02/06/19 at 05:30 Clonidine (Catapres) 0.1 mg Q6H PRN PO ELEVATED SYSTOLIC BP Last administered on 02/09/19at 15:16; Admin Dose 0.1 MG; Start 02/06/19 at 05:30 Nitroglycerin (Nitroglycerin (Sl Tab) 0.4 Mg) 1 tab Q5M PRN SL ANGINA; Start 02/06/19 at 05:30 Ascorbic Acid (Vitamin C) 500 mg DAILY PO Last administered on 02/10/19at 08:25; Admin Dose 500 MG; Start 02/06/19 at 09:00 Famotidine (Pepcid) 20 mg Q12 PO Last administered on 02/09/19at 21:23; Admin Dose 20 MG; Start 02/06/19 at 09:00 Gabapentin (Neurontin) 100 mg TID PO Last administered on 02/12/19at 12:40; Admin Dose 100 MG; Start 02/06/19 at 09:00 Metoprolol Tartrate (Lopressor) 75 mg BID PO Last administered on 02/12/19at 08:34; Admin Dose 75 MG; Start 02/06/19 at 09:00 Multivitamins Therapeutic (Theragran) 1 tab DAILY PO Last administered on 02/10/19at 08:25; Admin Dose 1 TAB; Start 02/06/19 at 09:00 Miscellaneous Information Patients own medicat... BID@10,16 XX ; Start 02/06/19 at 16:00 Diagnostic Test (Pha) (Accu-Chek) 1 ea 02 XX ; Start 02/07/19 at 02:00 Insulin Glargine (Lantus) 20 units DAILY@0800 SC ; Start 02/06/19 at 15:30 Insulin Aspart (Novolog Insulin Pen) NOVOLOG *MILD* ALGORITHM WITH MEALS BEDTIME SC ; Start 02/06/19 at 18:00 Miscellaneous Information 1 ea NOTE XX ; Start 02/06/19 at 14:30 Glucose (Glutose) 15 gm Q15M PRN PO DECREASED GLUCOSE; Start 02/06/19 at 14:30 Glucose (Glutose) 22.5 gm Q15M PRN PO DECREASED GLUCOSE; Start 02/06/19 at 14:30 Dextrose (D50w Syringe) 25 ml Q15M PRN IV DECREASED GLUCOSE; Start 02/06/19 at 14:30 Dextrose (D50w Syringe) 50 ml Q15M PRN IV DECREASED GLUCOSE; Start 02/06/19 at 14:30 Glucagon (Glucagen) 1 mg Q15M PRN IM DECREASED GLUCOSE; Start 02/06/19 at 14:30 Glucose (Glutose) 15 gm Q15M PRN BUCCAL DECREASED GLUCOSE; Start 02/06/19 at 14:30 Collagenase (Santyl) 1 applic DAILY TOP Last administered on 02/12/19at 08:36; Admin Dose 1 APPLIC; Start 02/06/19 at 18:30 Collagenase (Santyl) 1 applic PRN PRN TOP WHEN SOILED; Start 02/06/19 at 18:30 Mupirocin (Bactroban) 1 applic BID TOP Last administered on 02/12/19at 08:35; Admin Dose 1 APPLIC; Start 02/07/19 at 10:00 Lisinopril (Zestril) 40 mg DAILY PO Last administered on 02/12/19at 08:33; Admin Dose 40 MG; Start 02/08/19 at 09:00 Metformin HCl (Glucophage) 1,000 mg WITH BREAKFAST DINNE PO Last administered on 02/12/19at 08:33; Admin Dose 1,000 MG; Start 02/07/19 at 18:00 Clotrimazole (Lotrimin Cr) 1 applic BID TOP Last administered on 02/12/19at 08:35; Admin Dose 1 APPLIC; Start 02/07/19 at 11:30 Sodium Hypochlorite (Dakins Diluted ()) 1 applic DAILY TP Last administered on 02/12/19at 08:36; Admin Dose 1 APPLIC; Start 02/09/19 at 09:00 Daptomycin 450 mg/ Sodium Chloride 100 ml @ 200 mls/hr Q24H IVPB Last administered on 02/11/19at 15:31; Admin Dose 200 MLS/HR; Start 02/10/19 at 16:00 Gentamicin Sulfate (Gentamicin Iv Per Pharmacy) GENTAMICIN PER PHARMACY NOTE XX ; Start 02/10/19 at 14:00 Gentamicin Sulfate 360 mg/ Sodium Chloride 109 ml @ 109 mls/hr Q24H IVPB Last administered on 02/11/19at 17:24; Admin Dose 109 MLS/HR; Start 02/10/19 at 16:30 Miscellaneous Information (*Rx Drug Level Order Reminder*) GENT TROUGH @ 1,530 1530 ONCE XX ; Start 02/12/19 at 15:30; Stop 02/12/19 at 15:31 Nifedipine (Procardia Xl) 30 mg BID PO Last administered on 02/12/19at 08:33; Admin Dose 30 MG; Start 02/11/19 at 15:00 Polyethylene Glycol (Miralax) 17 gm DAILY PO Last administered on 02/12/19at 12:40; Admin Dose 17 GM; Start 02/12/19 at 12:30 CHANTALE RAMIREZ NP Feb 12, 2019 13:21
--- NOTE | 2019-02-12 13:51 | PN ---
Date/Time of Note Date/Time of Note DATE: 02/12/19 TIME: 13:49 Assessment/Plan Lines/Catheters IV Catheter Type (from Nrs): Peripheral IV Chanel in Place (from Nrs): Yes Assessment/Plan Chief Complaint/Hosp Course 1. Multiple wounds s/p debridement of bilat buttock 02/07/19 -further debridement prn -Continue local care> w dakins -frequent turning and off-loading -low air loss mattress -vitamin c -short term zinc -optimize nutrition -bilateral LE wounds: per podiatry 2. Osteomyelitis BLE -abx per ID 3. Hypertension -nutrition and medication management 4. Diabetes: hga1c: 6.5 -nutrition and medication management 5. Diabetic neuropathy -safety precs (ensure no lines/tubes, etc on skin) -diabetes optimization 6. Hypochromic anemia -monitor and tx as needed 7. Depression -psych optimization 8. 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 Patient seen and examined in collaboration with Dr. Kj Moran Subjective 24 Hr Interval Summary No acute events. Continues on IV antibiotics. Placement pending. No fevers, chills, sob, congested cough, cp, palpitations, koch, dizziness, nausea, vomiting, diarrhea, dysuria, buttock wounds drainage or odor. Exam/Review of Systems Vital Signs Vitals Vital Signs Date Temp Pulse Resp B/P (MAP) Pulse Ox O2 O2 Flow FiO2 Time Delivery Rate 02/11/19 98.6 88 19 189/85 96 20:00 (119) 02/11/19 Room Air 13:49 Intake and Output 02/11/19 02/11/19 02/12/19 1414:59 22:59 06:59 IntakeIntake Total 1609 ml 600 ml OutputOutput Total 700 ml BalanceBalance 909 ml 600 ml Exam Free Text/Dictation Constitutional: alert, oriented, well developed Psych: nl mood/affect, labile Head: normocephalic, atraumatic Eyes: nl conjunctiva, EOMI, nl lids, nl sclera ENMT: nl external ears & nose, nl lips & teeth, mucosa pink and moist Neck: supple, non-tender; No jvd Respiratory: normal air movement; No congested cough Cardiovascular: regular rate and rhythm, nl pulses; No edema Gastrointestinal: soft, non-tender Genitourinary - Male: nl penis, nl scrotum Musculoskeletal: nl extremities to inspection, other (contracted BLE) Extremities: normal pulses; No pitting pedal edema Neurological: nl mental status, nl speech, nl strength Skin: other (multiple wounds: bilat buttock: clean, scant drainage); BLE: wounds: dry No rash or lesions Lymph: No nl lymph nodes Results Result Diagram: 02/12/19 0654 02/12/19 0654 CALLY NOEL NP Feb 12, 2019 13:51
[2019-02-12 14:00] VITALS: BP 187/86; PULSE 85; RESP 18
[2019-02-12] MEDS: DAPTOMYCIN 450 MG in SOD CHLORIDE 0.9% 100 ML IVPB SCH (16:39)
[2019-02-12] MEDS: HYDROCODONE/APAP (5/325) TAB PO PRN (18:20)
[2019-02-12] MEDS: GENTAMICIN 360 MG in SOD CHLORIDE 0.9% 100 ML IVPB SCH (18:44)
[2019-02-12 20:06] VITALS: BP 180/83; PULSE 86; RESP 18
[2019-02-13] MEDS: ACCU-CHEK XX SCH (01:07)
--- NOTE | 2019-02-13 04:22 | PN ---
Date/Time of Note Date/Time of Note DATE: 02/12/19 Assessment/Plan VTE Prophylaxis Risk score (from Nsg)>0 risk: 6 Pharmacological prophylaxis: heparin Lines/Catheters IV Catheter Type (from Nrsg): Saline Lock Urinary Cath still in place: Yes Reason Cath still needed: other (indicate) Assessment/Plan Hospital Course SUBJECTIVE: no new issues OBJECTIVE: Vital signs-see below PHYSICAL EXAM: Constitutional: Chronically ill looking male,not in acute distress. HEENT: Head atraumatic and normocephalic. CHEST: Clear and good breath sounds equally. No wheezing. No rhonchi. HEART: S1, S2. Regular rate and rhythm. ABDOMEN: Soft/non tender with no rebound tenderness. Bowel sounds were present. EXTREMITIES: Crow.LEs w/multiple dry wounds/Swelling. +Fungi nails.Generalized weakness/mild contractures x4 extremities. NEUROLOGIC: Highly temperamental. Alert and oriented x3. Generalized weakness to all 4 extremities with contractures. ASSESSMENT AND PLAN:63 yo wheelchair bounded M w/dm2/dm ulcers/decubs admitted w/worsening crow LEs wouds .. Bilateral LE diabetic ulcers -Wound care -Continue antimicrobials. -multiorganisms from wound cultures -BC 1consistent with contaminant -continue abx and wound care Osteomyelitis -Patient on 6 weeks IV antibiotics which he has to complete. DMII --Stable glycemic trends - refused insulin inhouse -Metformin Peripheral neuropathy -cont. gabapentin Sacral decubitus ulcers -s/p debridement of bilat buttock 02/07/19 -further debridement prn -local care per surgery instructions, appreciate input -frequent turning and off-loading -low air loss mattress -vitamin c -short term zinc -optimize nutrition Onychomycosis -Clotrimazole cream -Podiatry f/u for PRN nail debridement Hypertension -stable -cont.BB/ACEi Anemia w/ iron deficiency+ chronic inflammation -stable -cont.oral iron Debility w/contractures -wheelchair bounded -SNF planning -PT eval/treatment when appropriate per podiatry in terms of weight bearing Chronic bowel/bladder incontinence -change arango q 30days 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 DVT prophylaxis: Refused ATC Disposition: SNF placement pending, needs at least 6 weeks of abx Result Diagram: 02/12/19 0654 02/12/19 0654 Results 24hrs Laboratory Tests Test 02/12/19 06:54 02/12/19 08:24 02/12/19 12:30 02/12/19 16:59 White Blood Count 4.5 L Red Blood Count 3.36 L Hemoglobin 8.8 L Hematocrit 29.0 L Mean Corpuscular 86.3 Volume Mean Corpuscular 26.2 L Hemoglobin Mean Corpuscular 30.3 L Hemoglobin Concent Red Cell 14.6 H Distribution Width Platelet Count 443 H Mean Platelet Volume 9.6 Immature 0.200 Granulocytes % Neutrophils % 54.8 Lymphocytes % 31.1 Monocytes % 9.2 Eosinophils % 3.4 Basophils % 1.3 Nucleated Red Blood 0.0 Cells % Immature 0.010 Granulocytes # Neutrophils # 2.5 Lymphocytes # 1.4 Monocytes # 0.4 Eosinophils # 0.2 Basophils # 0.1 Nucleated Red Blood 0.0 Cells # Sodium Level 141 Potassium Level 3.5 Chloride Level 113 H Carbon Dioxide Level 21 Anion Gap 7 Blood Urea Nitrogen 10 Creatinine 0.88 Est Glomerular > 60 Filtrat Rate mL/min Glucose Level 96 Calcium Level 8.8 Bedside Glucose 101 103 189 Test 02/12/19 20:19 Bedside Glucose 169 Exam/Review of Systems Exam Vitals Vital Signs Date Temp Pulse Resp B/P (MAP) Pulse Ox O2 O2 Flow FiO2 Time Delivery Rate 02/12/19 98.7 86 18 180/83 97 Room Air 20:06 (115) Intake and Output 02/12/19 02/12/19 02/13/19 1515:00 23:00 07:00 IntakeIntake Total 240 ml 329 ml OutputOutput Total 2000 ml BalanceBalance 240 ml -1671 ml Results Results 24hrs Laboratory Tests Test 02/12/19 06:54 02/12/19 08:24 02/12/19 12:30 02/12/19 16:59 White Blood Count 4.5 L Red Blood Count 3.36 L Hemoglobin 8.8 L Hematocrit 29.0 L Mean Corpuscular 86.3 Volume Mean Corpuscular 26.2 L Hemoglobin Mean Corpuscular 30.3 L Hemoglobin Concent Red Cell 14.6 H Distribution Width Platelet Count 443 H Mean Platelet Volume 9.6 Immature 0.200 Granulocytes % Neutrophils % 54.8 Lymphocytes % 31.1 Monocytes % 9.2 Eosinophils % 3.4 Basophils % 1.3 Nucleated Red Blood 0.0 Cells % Immature 0.010 Granulocytes # Neutrophils # 2.5 Lymphocytes # 1.4 Monocytes # 0.4 Eosinophils # 0.2 Basophils # 0.1 Nucleated Red Blood 0.0 Cells # Sodium Level 141 Potassium Level 3.5 Chloride Level 113 H Carbon Dioxide Level 21 Anion Gap 7 Blood Urea Nitrogen 10 Creatinine 0.88 Est Glomerular > 60 Filtrat Rate mL/min Glucose Level 96 Calcium Level 8.8 Bedside Glucose 101 103 189 Test 02/12/19 20:19 Bedside Glucose 169 Medications Medication Current Medications IV Flush (NS 3 ml) 3 ml PER PROTOCOL IV ; Start 02/06/19 at 05:30 Ondansetron HCl (Zofran Inj) 4 mg Q6H PRN IV NAUSEA/VOMITING; Start 02/06/19 at 05:30 Acetaminophen (Tylenol Tab) 650 mg Q6H PRN PO .PAIN 1-3 OR TEMP Last admi nistered on 02/06/19at 21:57; Admin Dose 650 MG; Start 02/06/19 at 05:30 Acetaminophen/ Hydrocodone Bitart ([place] (5/325)) 1 tab Q6H PRN PO .MOD PAIN 4- 6 Last administered on 02/12/19at 18:20; Admin Dose 1 TAB; Start 02/06/19 at 05:30 Morphine Sulfate (morphine) 2 mg Q4H PRN IV .SEVERE PAIN 7-10; Start 02/06/19 at 05:30 Docusate Sodium (Colace) 100 mg Q12H PRN PO .CONSTIPATION; Start 02/06/19 at 05:30 Magnesium Hydroxide (Milk Of Mag) 30 ml DAILY PRN PO .CONSTIPATION Last administered on 02/09/19at 13:58; Admin Dose 30 ML; Start 02/06/19 at 05:30 Pantoprazole (Protonix Tab) 40 mg DAILY@06 PO Last administered on 02/10/19at 06:01; Admin Dose 40 MG; Start 02/06/19 at 06:00 Lorazepam (Ativan) 0.5 mg Q6H PRN IV ANXIETY; Start 02/06/19 at 05:30 Albuterol/ Ipratropium (Duoneb) 3 ml Q4H RESP THERAPY PRN HHN SHORTNESS OF BREATH; Start 02/06/19 at 05:30 Hydralazine HCl (Apresoline) 10 mg Q6H PRN IV ELEVATED BLOOD PRESSURE Last administered on 02/11/19at 14:02; Admin Dose 10 MG; Start 02/06/19 at 05:30 Clonidine (Catapres) 0.1 mg Q6H PRN PO ELEVATED SYSTOLIC BP Last administered on 02/09/19at 15:16; Admin Dose 0.1 MG; Start 02/06/19 at 05:30 Nitroglycerin (Nitroglycerin (Sl Tab) 0.4 Mg) 1 tab Q5M PRN SL ANGINA; Start 02/06/19 at 05:30 Ascorbic Acid (Vitamin C) 500 mg DAILY PO Last administered on 02/10/19at 08:25; Admin Dose 500 MG; Start 02/06/19 at 09:00 Famotidine (Pepcid) 20 mg Q12 PO Last administered on 02/12/19at 20:21; Admin Dose 20 MG; Start 02/06/19 at 09:00 Gabapentin (Neurontin) 100 mg TID PO Last administered on 02/12/19at 20:21; Admin Dose 100 MG; Start 02/06/19 at 09:00 Metoprolol Tartrate (Lopressor) 75 mg BID PO Last administered on 02/12/19at 08:34; Admin Dose 75 MG; Start 02/06/19 at 09:00 Multivitamins Therapeutic (Theragran) 1 tab DAILY PO Last administered on 02/10/19at 08:25; Admin Dose 1 TAB; Start 02/06/19 at 09:00 Miscellaneous Information Patients own medicat... BID@10,16 XX ; Start 02/06/19 at 16:00 Diagnostic Test (Pha) (Accu-Chek) 1 ea 02 XX ; Start 02/07/19 at 02:00 Insulin Glargine (Lantus) 20 units DAILY@0800 SC ; Start 02/06/19 at 15:30 Insulin Aspart (Novolog Insulin Pen) NOVOLOG *MILD* ALGORITHM WITH MEALS BEDTIME SC ; Start 02/06/19 at 18:00 Miscellaneous Information 1 ea NOTE XX ; Start 02/06/19 at 14:30 Glucose (Glutose) 15 gm Q15M PRN PO DECREASED GLUCOSE; Start 02/06/19 at 14:30 Glucose (Glutose) 22.5 gm Q15M PRN PO DECREASED GLUCOSE; Start 02/06/19 at 14:30 Dextrose (D50w Syringe) 25 ml Q15M PRN IV DECREASED GLUCOSE; Start 02/06/19 at 14:30 Dextrose (D50w Syringe) 50 ml Q15M PRN IV DECREASED GLUCOSE; Start 02/06/19 at 14:30 Glucagon (Glucagen) 1 mg Q15M PRN IM DECREASED GLUCOSE; Start 02/06/19 at 14:30 Glucose (Glutose) 15 gm Q15M PRN BUCCAL DECREASED GLUCOSE; Start 02/06/19 at 14:30 Collagenase (Santyl) 1 applic DAILY TOP Last administered on 02/12/19 08:36; Admin Dose 1 APPLIC; Start 02/06/19 at 18:30 Collagenase (Santyl) 1 applic PRN PRN TOP WHEN SOILED; Start 02/06/19 at 18:30 Mupirocin (Bactroban) 1 applic BID TOP Last administered on 02/12/19 20:25; Admin Dose 1 APPLIC; Start 02/07/19 at 10:00 Lisinopril (Zestril) 40 mg DAILY PO Last administered on 02/12/19 08:33; Admin Dose 40 MG; Start 02/08/19 at 09:00 Metformin HCl (Glucophage) 1,000 mg WITH BREAKFAST DINNE PO Last administered on 02/12/19 18:20; Admin Dose 1,000 MG; Start 02/07/19 at 18:00 Clotrimazole (Lotrimin Cr) 1 applic BID TOP Last administered on 02/12/19 20:25; Admin Dose 1 APPLIC; Start 02/07/19 at 11:30 Sodium Hypochlorite (Dakins Diluted (40)) 1 applic DAILY TP Last administered on 02/12/19 08:36; Admin Dose 1 APPLIC; Start 02/09/19 at 09:00 Daptomycin 450 mg/ Sodium Chloride 100 ml @ 200 mls/hr Q24H IVPB Last administered on 02/12/19 16:39; Admin Dose 200 MLS/HR; Start 02/10/19 at 16:00 Gentamicin Sulfate (Gentamicin Iv Per Pharmacy) GENTAMICIN PER PHARMACY NOTE XX ; Start 02/10/19 at 14:00 Gentamicin Sulfate 360 mg/ Sodium Chloride 109 ml @ 109 mls/hr Q24H IVPB Last administered on 6/12/19at 18:44; Admin Dose 109 MLS/HR; Start 02/10/19 at 16:30 Nifedipine (Procardia Xl) 30 mg BID PO Last administered on 02/12/19at 20:23; Ad min Dose 30 MG; Start 02/11/19 at 15:00 Polyethylene Glycol (Miralax) 17 gm DAILY PO Last administered on 02/12/19at 12:40; Admin Dose 17 GM; Start 02/12/19 at 12:30 Miscellaneous Information (*Rx Drug Level Order Reminder*) GENTAMICIN TROUGH @ 1,630 1630 ONCE XX ; Start 02/13/19 at 16:30; Stop 02/13/19 at 16:31 JEROME DELANEY Feb 13, 2019 04:22
[2019-02-13] MEDS: PANTOPRAZOLE (EC) 40 MG TAB PO SCH (06:00)
[2019-02-13] MEDS: INSULIN ASPART [NOVOLOG] 3 ML PEN SC SCH ×4 (08:00→20:41)
[2019-02-13] MEDS: INSULIN GLARGINE [LANTus] (100 UNITS/ML) SYG SC SCH (08:00)
[2019-02-13 08:15] VITALS: BP 161/74; PULSE 88; RESP 18
[2019-02-13] MEDS: POLYETHYLENE GLYCOL 17 GM PACKET PO SCH (08:36)
[2019-02-13] MEDS: FAMOTIDINE 20 MG TAB PO SCH (08:37)
[2019-02-13] MEDS: MULTIVITAMINS THERAPEUTIC TAB PO SCH (08:38)
[2019-02-13] MEDS: ASCORBIC ACID 500 MG TAB PO SCH (08:38)
[2019-02-13] MEDS: LISINOPRIL 20 MG TAB PO SCH (08:41)
[2019-02-13] MEDS: METOPROLOL 25 MG TAB PO SCH (08:41)
[2019-02-13] MEDS: GABAPENTIN 100 MG CAP PO SCH ×3 (08:41→21:09)
[2019-02-13] MEDS: metFORMIN 500 MG TAB PO SCH ×2 (09:13→17:47)
[2019-02-13] MEDS: COLLAGENASE 5 GM (UD JAR) TOP SCH (09:13)
[2019-02-13] MEDS: NIFEdipine (XL) 30 MG TAB PO SCH ×2 (09:13→20:45)
[2019-02-13] MEDS: CLOTRIMAZOLE 1% 30 GM CR TOP SCH ×2 (09:14→20:45)
[2019-02-13] MEDS: DAKINS 0.0125%(1/40) 473 ML SOLUTION TP SCH (09:14)
[2019-02-13] MEDS: MUPIROCIN 2% 22 GM OINT TOP SCH ×2 (09:15→20:45)
--- NOTE | 2019-02-13 11:09 | CONS ---
Assessment/Plan Assessment/Plan Hospital Course (Demo Recall) All noted, no acute events Left and right buttock wounds grew MRSA, Pseudomonas, Enterococcus, Corynebacterium group JK Blood culture on admission grew staph species 1 out of 2 sets Antimicrobials: Gent, Daptomycin ALLERGIES: HE IS NOT ALLERGIC TO ANY ANTIBIOTICS. PHYSICAL EXAMINATION: GENERAL: Well-developed elderly -[place] man who is in no distress. HEENT: Head is atraumatic, normocephalic. Sclerae are anicteric. Buccal mucosa is dry. NECK: Supple. CHEST: Rise symmetrical. Breath sounds diminished to bases. HEART: S1, S2. ABDOMEN: Soft. Bowel tones are present. EXTREMITIES: With bilateral lower extremities dressing intact. Assessment: 1. Bilateral lower extremities diabetic ulcerations 2. Left foot osteomyelitis 3. Diabetes with diabetic neuropathy 4. Bilateral buttocks ulcerations, status post debridement 5. Coag negative staph bacteremia consistent with contaminant Plan: Continue Daptomycin and Gentamicin to complete 2 weeks==> last dose February 23, then change to IV Vanco and IV Rocephin till March 22 to complete course for OM, continue wound care per podiatry and surgical teams Consultation Date/Type/Reason Admit Date/Time Feb 06, 2019 at 03:18 Initial Consult Date 02/07/19 Type of Consult id Requesting Provider: MASOUD SOLANO DPM Date/Time of Note DATE: 02/13/19 TIME: 11:08 Exam/Review of Systems Exam Vitals Vital Signs Date Temp Pulse Resp B/P (MAP) Pulse Ox O2 O2 Flow FiO2 Time Delivery Rate 02/13/19 98.1 88 18 161/74 94 08:15 (103) 02/12/19 Room Air 20:06 Intake and Output 02/12/19 02/12/19 02/13/19 1515:00 23:00 07:00 IntakeIntake Total 240 ml 329 ml OutputOutput Total 2000 ml 2000 ml BalanceBalance 240 ml -1671 ml -2000 ml Results Result Diagram: 02/12/19 0654 02/12/19 0654 Results 24hrs Laboratory Tests Test 02/12/19 12:30 02/12/19 16:59 02/12/19 20:19 02/13/19 08:33 Bedside Glucose 103 189 169 112 Medications Medication Current Medications IV Flush (NS 3 ml) 3 ml PER PROTOCOL IV ; Start 02/06/19 at 05:30 Ondansetron HCl (Zofran Inj) 4 mg Q6H PRN IV NAUSEA/VOMITING; Start 02/06/19 at 05:30 Acetaminophen (Tylenol Tab) 650 mg Q6H PRN PO .PAIN 1-3 OR TEMP Last administered on 02/06/19at 21:57; Admin Dose 650 MG; Start 02/06/19 at 05:30 Acetaminophen/ Hydrocodone Bitart ([place] (5/325)) 1 tab Q6H PRN PO .MOD PAIN 4- 6 Last administered on 02/12/19at 18:20; Admin Dose 1 TAB; Start 02/06/19 at 05:30 Morphine Sulfate (morphine) 2 mg Q4H PRN IV .SEVERE PAIN 7-10; Start 02/06/19 at 05:30 Docusate Sodium (Colace) 100 mg Q12H PRN PO .CONSTIPATION; Start 02/06/19 at 05:30 Magnesium Hydroxide (Milk Of Mag) 30 ml DAILY PRN PO .CONSTIPATION Last administered on 02/09/19at 13:58; Admin Dose 30 ML; Start 02/06/19 at 05:30 Pantoprazole (Protonix Tab) 40 mg DAILY@06 PO Last administered on 02/10/19at 06:01; Admin Dose 40 MG; Start 02/06/19 at 06:00 Lorazepam (Ativan) 0.5 mg Q6H PRN IV ANXIETY; Start 02/06/19 at 05:30 Albuterol/ Ipratropium (Duoneb) 3 ml Q4H RESP THERAPY PRN HHN SHORTNESS OF BREATH; Start 02/06/19 at 05:30 Hydralazine HCl (Apresoline) 10 mg Q6H PRN IV ELEVATED BLOOD PRESSURE Last administered on 02/11/19at 14:02; Admin Dose 10 MG; Start 02/06/19 at 05:30 Clonidine (Catapres) 0.1 mg Q6H PRN PO ELEVATED SYSTOLIC BP Last administered on 02/09/19at 15:16; Admin Dose 0.1 MG; Start 02/06/19 at 05:30 Nitroglycerin (Nitroglycerin (Sl Tab) 0.4 Mg) 1 tab Q5M PRN SL ANGINA; Start 02/06/19 at 05:30 Ascorbic Acid (Vitamin C) 500 mg DAILY PO Last administered on 02/10/19at 08:25; Admin Dose 500 MG; Start 02/06/19 at 09:00 Famotidine (Pepcid) 20 mg Q12 PO Last administered on 02/12/19at 20:21; Admin Dose 20 MG; Start 02/06/19 at 09:00 Gabapentin (Neurontin) 100 mg TID PO Last administered on 02/13/19at 08:41; Admin Dose 100 MG; Start 02/06/19 at 09:00 Metoprolol Tartrate (Lopressor) 75 mg BID PO Last administered on 02/13/19at 08:41; Admin Dose 75 MG; Start 02/06/19 at 09:00 Multivitamins Therapeutic (Theragran) 1 tab DAILY PO Last administered on 02/10at 08:25; Admin Dose 1 TAB; Start 02/06/19 at 09:00 Miscellaneous Information Patients own medicat... BID@10,16 XX ; Start 02/06/19 at 16:00 Diagnostic Test (Pha) (Accu-Chek) 1 ea 02 XX ; Start 02/07/19 at 02:00 Insulin Glargine (Lantus) 20 units DAILY@0800 SC ; Start 02/06/19 at 15:30 Insulin Aspart (Novolog Insulin Pen) NOVOLOG *MILD* ALGORITHM WITH MEALS BEDTIME SC ; Start 02/06/19 at 18:00 Miscellaneous Information 1 ea NOTE XX ; Start 02/06/19 at 14:30 Glucose (Glutose) 15 gm Q15M PRN PO DECREASED GLUCOSE; Start 02/06/19 at 14:30 Glucose (Glutose) 22.5 gm Q15M PRN PO DECREASED GLUCOSE; Start 02/06/19 at 14:30 Dextrose (D50w Syringe) 25 ml Q15M PRN IV DECREASED GLUCOSE; Start 02/06/19 at 1 4:30 Dextrose (D50w Syringe) 50 ml Q15M PRN IV DECREASED GLUCOSE; Start 02/06/19 at 14:30 Glucagon (Glucagen) 1 mg Q15M PRN IM DECREASED GLUCOSE; Start 02/06/19 at 14:30 Glucose (Glutose) 15 gm Q15M PRN BUCCAL DECREASED GLUCOSE; Start 02/06/19 at 14:30 Collagenase (Santyl) 1 applic DAILY TOP Last administered on 02/13/19 09:13; Admin Dose 1 APPLIC; Start 02/06/19 at 18:30 Collagenase (Santyl) 1 applic PRN PRN TOP WHEN SOILED; Start 02/06/19 at 18:30 Mupirocin (Bactroban) 1 applic BID TOP Last administered on 02/13/19 09:15; Admin Dose 1 APPLIC; Start 02/07/19 at 10:00 Lisinopril (Zestril) 40 mg DAILY PO Last administered on 02/13/19 08:41; Admin Dose 40 MG; Start 02/08/19 at 09:00 Metformin HCl (Glucophage) 1,000 mg WITH BREAKFAST DINNE PO Last administered on 02/13/19 09:13; Admin Dose 1,000 MG; Start 02/07/19 at 18:00 Clotrimazole (Lotrimin Cr) 1 applic BID TOP Last administered on 02/13/19 09:14; Admin Dose 1 APPLIC; Start 02/07/19 at 11:30 Sodium Hypochlorite (Dakins Diluted ()) 1 applic DAILY TP Last administered on 02/13/19 09:14; Admin Dose 1 APPLIC; Start 02/09/19 at 09:00 Daptomycin 450 mg/ Sodium Chloride 100 ml @ 200 mls/hr Q24H IVPB Last administered on 02/12/19 16:39; Admin Dose 200 MLS/HR; Start 02/10/19 at 16:00 Gentamicin Sulfate (Gentamicin Iv Per Pharmacy) GENTAMICIN PER PHARMACY NOTE XX ; Start 02/10/19 at 14:00 Gentamicin Sulfate 360 mg/ Sodium Chloride 109 ml @ 109 mls/hr Q24H IVPB Last administered on 02/12/19 18:44; Admin Dose 109 MLS/HR; Start 02/10/19 at 16:30 Nifedipine (Procardia Xl) 30 mg BID PO Last administered on 02/13/19 09:13; Admin Dose 30 MG; Start 02/11/19 at 15:00 Polyethylene Glycol (Miralax) 17 gm DAILY PO Last administered on 02/12/19 12:40; Admin Dose 17 GM; Start 02/12/19 at 12:30 Miscellaneous Information (*Rx Drug Level Order Reminder*) GENTAMICIN TROUGH @ 1,630 1630 ONCE XX ; Start 02/13/19 at 16:30; Stop 02/13/19 at 16:31 CHANTALE RAMIREZ NP Feb 13, 2019 11:09
--- NOTE | 2019-02-13 13:52 | PN ---
Date/Time of Note Date/Time of Note DATE: 02/13/19 TIME: 13:51 Assessment/Plan Lines/Catheters IV Catheter Type (from Nrs): Saline Lock Chanel in Place (from Nrs): Yes Assessment/Plan Chief Complaint/Hosp Course 1. Multiple wounds s/p debridement of bilat buttock 02/07/19 -further debridement prn -Continue local care> w dakins -frequent turning and off-loading -low air loss mattress -vitamin c -short term zinc -optimize nutrition -bilateral LE wounds: per podiatry 2. Osteomyelitis BLE -abx per ID> discharge placement pending 3. Hypertension -nutrition and medication management 4. Diabetes: hga1c: 6.5 -nutrition and medication management 5. Diabetic neuropathy -safety precs (ensure no lines/tubes, etc on skin) -diabetes optimization 6. Hypochromic anemia -monitor and tx as needed 7. Depression -psych optimization 8. Hypocalcemia: likely multifactorial -nutrition optimization -treat infections 9. Homelessness -social services assistant Thank you. Patient seen and examined in collaboration with Dr. Kj Moran Subjective 24 Hr Interval Summary No acute events. No fevers, chills, sob, congested cough, cp, palpitations, koch, dizziness, nausea, vomiting, diarrhea, dysuria. Exam/Review of Systems Vital Signs Vitals Vital Signs Date Temp Pulse Resp B/P (MAP) Pulse Ox O2 O2 Flow FiO2 Time Delivery Rate 02/13/19 98.1 88 18 161/74 94 08:15 (103) 02/12/19 Room Air 20:06 Intake and Output 02/12/19 02/12/19 02/13/19 1515:00 23:00 07:00 IntakeIntake Total 240 ml 329 ml OutputOutput Total 2000 ml 2000 ml BalanceBalance 240 ml -1671 ml -2000 ml Exam Free Text/Dictation Constitutional: alert, oriented, well developed Psych: nl mood/affect, labile Head: normocephalic, atraumatic Eyes: nl conjunctiva, EOMI, nl lids, nl sclera ENMT: nl external ears & nose, nl lips & teeth, mucosa pink and moist Neck: supple, non-tender; No jvd Respiratory: normal air movement; No congested cough Cardiovascular: regular rate and rhythm, nl pulses; No edema Gastrointestinal: soft, non-tender Genitourinary - Male: nl penis, nl scrotum Musculoskeletal: nl extremities to inspection, other (contracted BLE) Extremities: normal pulses; No pitting pedal edema Neurological: nl mental status, nl speech, nl strength Skin: other (multiple wounds: bilat buttock: clean, scant drainage); BLE: wounds: dry No rash or lesions Lymph: No nl lymph nodes Results Result Diagram: 02/12/19 0654 02/12/19 0654 CALLY NOEL NP Feb 13, 2019 13:52
--- NOTE | 2019-02-13 14:29 | PN ---
Date/Time of Note Date/Time of Note DATE: 02/13/19 TIME: 14:24 Assessment/Plan VTE Prophylaxis Risk score (from Nsg)>0 risk: 6 SCD applied (from Nsg): No SCD contraindicated: low risk/ambulating Pharmacological prophylaxis: LMWH Lines/Catheters IV Catheter Type (from Nrsg): [place] Urinary Cath still in place: Yes Reason Cath still needed: urinary retention Assessment/Plan Hospital Course Assessment and plan 1. Bilateral lower extremity heel and foot ulcers, stable continue local wound care/offload 2. Chronic bilateral buttock ulcer status post debridement, offload 3. Chronic debility wheelchair-bound status, prognosis guarded 4. Failure to thrive homeless, needs placement 5. Type 2 diabetes nonadherent to insulin coverage scale 6. Metabolic syndrome 7. Hypertension not at goal 8. Tobacco abuse, counseling patch 9. COPD questionnaire 10. Psychosis, not otherwise specified 11. Chronic neurogenic bladder probably diabetic associated continue straight cath as needed 12. H/o OM last mnth: Daptomycin/ Gentamicin [2 weeks, last 02/23]. then change to IV Vanco/ Rocephin till 03/22 to complete course for OM. 13. Anemia 14. Vitamin D deficiency 10. Nonadherence 16. Onychomycosis S: Events noted O: Bp elevated PE No pallor droop Regular no mrg Clear Bowel sounds present nt nd no RRG Hypotonia contractures diabetic neuropathy wounds dressed Result Diagram: 02/12/19 0654 02/12/19 0654 Results 24hrs Laboratory Tests Test 02/12/19 16:59 02/12/19 20:19 02/13/19 08:33 02/13/19 13:35 Bedside Glucose 189 169 112 130 Exam/Review of Systems Exam Vitals Vital Signs Date Temp Pulse Resp B/P (MAP) Pulse Ox O2 O2 Flow FiO2 Time Delivery Rate 02/13/19 98.1 88 18 161/74 94 08:15 (103) 02/12/19 Room Air 20:06 Intake and Output 02/12/19 02/12/19 02/13/19 1515:00 23:00 07:00 IntakeIntake Total 240 ml 329 ml OutputOutput Total 2000 ml 2000 ml BalanceBalance 240 ml -1671 ml -2000 ml Results Results 24hrs Laboratory Tests Test 02/12/19 16:59 02/12/19 20:19 02/13/19 08:33 02/13/19 13:35 Bedside Glucose 189 169 112 130 Medications Medication Current Medications IV Flush (NS 3 ml) 3 ml PER PROTOCOL IV ; Start 02/06/19 at 05:30 Ondansetron HCl (Zofran Inj) 4 mg Q6H PRN IV NAUSEA/VOMITING; Start 02/06/19 at 05:30 Acetaminophen (Tylenol Tab) 650 mg Q6H PRN PO .PAIN 1-3 OR TEMP Last administered on 02/06/19at 21:57; Admin Dose 650 MG; Start 02/06/19 at 05:30 Acetaminophen/ Hydrocodone Bitart ([place] (5/325)) 1 tab Q6H PRN PO .MOD PAIN 4- 6 Last administered on 02/12/19at 18:20; Admin Dose 1 TAB; Start 02/06/19 at 05:30 Morphine Sulfate (morphine) 2 mg Q4H PRN IV .SEVERE PAIN 7-10; Start 02/06/19 at 05:30 Docusate Sodium (Colace) 100 mg Q12H PRN PO .CONSTIPATION; Start 02/06/19 at 05:30 Magnesium Hydroxide (Milk Of Mag) 30 ml DAILY PRN PO .CONSTIPATION Last administered on 02/09/19 13:58; Admin Dose 30 ML; Start 02/06/19 at 05:30 Pantoprazole (Protonix Tab) 40 mg DAILY@06 PO Last administered on 02/10/19 06:01; Admin Dose 40 MG; Start 02/06/19 at 06:00 Lorazepam (Ativan) 0.5 mg Q6H PRN IV ANXIETY; Start 02/06/19 at 05:30 Albuterol/ Ipratropium (Duoneb) 3 ml Q4H RESP THERAPY PRN HHN SHORTNESS OF BREATH; Start 02/06/19 at 05:30 Hydralazine HCl (Apresoline) 10 mg Q6H PRN IV ELEVATED BLOOD PRESSURE Last administered on 02/11/19 14:02; Admin Dose 10 MG; Start 02/06/19 at 05:30 Clonidine (Catapres) 0.1 mg Q6H PRN PO ELEVATED SYSTOLIC BP Last administered on 02/09/19at 15:16; Admin Dose 0.1 MG; Start 02/06/19 at 05:30 Nitroglycerin (Nitroglycerin (Sl Tab) 0.4 Mg) 1 tab Q5M PRN SL ANGINA; Start 02/06/19 at 05:30 Ascorbic Acid (Vitamin C) 500 mg DAILY PO Last administered on 02/10/19at 08:25; Admin Dose 500 MG; Start 02/06/19 at 09:00 Famotidine (Pepcid) 20 mg Q12 PO Last administered on 02/12/19at 20:21; Admin Dose 20 MG; Start 02/06/19 at 09:00 Gabapentin (Neurontin) 100 mg TID PO Last administered on 02/13/19at 13:36; Admin Dose 100 MG; Start 02/06/19 at 09:00 Metoprolol Tartrate (Lopressor) 75 mg BID PO Last administered on 02/13/19at 08:41; Admin Dose 75 MG; Start 02/06/19 at 09:00 Multivitamins Therapeutic (Theragran) 1 tab DAILY PO Last administered on 02/10/19at 08:25; Admin Dose 1 TAB; Start 02/06/19 at 09:00 Miscellaneous Information Patients own medicat... BID@10,16 XX ; Start 02/06/19 at 16:00 Diagnostic Test (Pha) (Accu-Chek) 1 ea 02 XX ; Start 02/07/19 at 02:00 Insulin Glargine (Lantus) 20 units DAILY@0800 SC ; Start 02/06/19 at 15:30 Insulin Aspart (Novolog Insulin Pen) NOVOLOG *MILD* ALGORITHM WITH MEALS BEDTIME SC ; Start 02/06/19 at 18:00 Miscellaneous Information 1 ea NOTE XX ; Start 02/06/19 at 14:30 Glucose (Glutose) 15 gm Q15M PRN PO DECREASED GLUCOSE; Start 02/06/19 at 14:30 Glucose (Glutose) 22.5 gm Q15M PRN PO DECREASED GLUCOSE; Start 02/06/19 at 14:30 Dextrose (D50w Syringe) 25 ml Q15M PRN IV DECREASED GLUCOSE; Start 02/06/19 at 14:30 Dextrose (D50w Syringe) 50 ml Q15M PRN IV DECREASED GLUCOSE; Start 02/06/19 at 14:30 Glucagon (Glucagen) 1 mg Q15M PRN IM DECREASED GLUCOSE; Start 02/06/19 at 14:30 Glucose (Glutose) 15 gm Q15M PRN BUCCAL DECREASED GLUCOSE; Start 02/06/19 at 14:30 Collagenase (Santyl) 1 applic DAILY TOP Last administered on 02/13/19 09:13; Admin Dose 1 APPLIC; Start 02/06/19 at 18:30 Collagenase (Santyl) 1 applic PRN PRN TOP WHEN SOILED; Start 02/06/19 at 18:30 Mupirocin (Bactroban) 1 applic BID TOP Last administered on 02/13/19 09:15; Admin Dose 1 APPLIC; Start 02/07/19 at 10:00 Lisinopril (Zestril) 40 mg DAILY PO Last administered on 02/13/19 08:41; Admin Dose 40 MG; Start 02/08/19 at 09:00 Metformin HCl (Glucophage) 1,000 mg WITH BREAKFAST DINNE PO Last administered on 02/13/19 09:13; Admin Dose 1,000 MG; Start 02/07/19 at 18:00 Clotrimazole (Lotrimin Cr) 1 applic BID TOP Last administered on 02/13/19 09:14; Admin Dose 1 APPLIC; Start 02/07/19 at 11:30 Sodium Hypochlorite (Dakins Diluted (40)) 1 applic DAILY TP Last administered on 02/13/19 09:14; Admin Dose 1 APPLIC; Start 02/09/19 at 09:00 Daptomycin 450 mg/ Sodium Chloride 100 ml @ 200 mls/hr Q24H IVPB Last administered on 02/12/19 16:39; Admin Dose 200 MLS/HR; Start 02/10/19 at 16:00 Gentamicin Sulfate (Gentamicin Iv Per Pharmacy) GENTAMICIN PER PHARMACY NOTE XX ; Start 02/10/19 at 14:00 Gentamicin Sulfate 360 mg/ Sodium Chloride 109 ml @ 109 mls/hr Q24H IVPB Last administered on 02/12/19 18:44; Admin Dose 109 MLS/HR; Start 02/10/19 at 16:30 Nifedipine (Procardia Xl) 30 mg BID PO Last administered on 02/13/19 09:13; Admin Dose 30 MG; Start 02/11/19 at 15:00 Polyethylene Glycol (Miralax) 17 gm DAILY PO Last administered on 02/12/19 12:40; Admin Dose 17 GM; Start 02/12/19 at 12:30 Miscellaneous Information (*Rx Drug Level Order Reminder*) GENTAMICIN TROUGH @ 1,630 1630 ONCE XX ; Start 02/13/19 at 16:30; Stop 02/13/19 at 16:31 DAYDAY HERNANDEZ MD Feb 13, 2019 14:29
[2019-02-13] MEDS ORDERED: NICOTINE (14 MG/24 HR) PATCH TRANSDERM PRN (15:00)
[2019-02-13 15:12] VITALS: BP 190/83; PULSE 78; RESP 18
[2019-02-13 16:13] VITALS: BP 142/78
[2019-02-13] MEDS: GENTAMICIN 360 MG in SOD CHLORIDE 0.9% 100 ML IVPB SCH (16:16)
[2019-02-13] MEDS: DAPTOMYCIN 450 MG in SOD CHLORIDE 0.9% 100 ML IVPB SCH (17:44)
[2019-02-13 20:35] VITALS: BP 196/87; PULSE 80; RESP 18
[2019-02-13] MEDS: METOPROLOL 100 MG TAB PO SCH (20:43)
[2019-02-13] MEDS: LACTOBACILLUS RHAMNOSUS CAP PO SCH (20:44)
[2019-02-13] MEDS: hydrALAzine 20 MG INJ IV PRN (21:10)
[2019-02-13 22:49] VITALS: BP 171/75; PULSE 82; RESP 18
[2019-02-14] MEDS ORDERED: hydrALAzine 20 MG INJ IV ONE (01:30)
[2019-02-14] MEDS: ACCU-CHEK XX SCH (02:00)
[2019-02-14 03:30] VITALS: BP 171/81; PULSE 88; RESP 18
[2019-02-14] MEDS: GENTAMICIN 360 MG in SOD CHLORIDE 0.9% 100 ML IVPB SCH (06:34)
[2019-02-14 07:56] VITALS: BP 178/78; PULSE 83; RESP 18
[2019-02-14] MEDS: INSULIN GLARGINE [LANTus] (100 UNITS/ML) SYG SC SCH (08:00)
[2019-02-14] MEDS: INSULIN ASPART [NOVOLOG] 3 ML PEN SC SCH ×5 (08:00→21:00)
[2019-02-14] MEDS: metFORMIN 500 MG TAB PO SCH ×3 (08:00→17:17)
[2019-02-14] MEDS: NACL 0.9% 3 ML SYG IV SCH (08:13)
[2019-02-14] MEDS: ASPIRIN (EC) 81 MG TAB PO SCH ×2 (08:15→08:31)
[2019-02-14] MEDS: GABAPENTIN 100 MG CAP PO SCH ×4 (08:15→21:09)
[2019-02-14] MEDS: NIFEdipine (XL) 30 MG TAB PO SCH ×3 (08:16→21:00)
[2019-02-14] MEDS: FAMOTIDINE 20 MG TAB PO SCH ×2 (08:16→08:34)
[2019-02-14] MEDS: MULTIVITAMINS THERAPEUTIC TAB PO SCH ×2 (08:16→08:34)
[2019-02-14] MEDS: ASCORBIC ACID 500 MG TAB PO SCH ×2 (08:16→08:34)
[2019-02-14] MEDS: LACTOBACILLUS RHAMNOSUS CAP PO SCH ×3 (08:16→21:00)
[2019-02-14] MEDS: METOPROLOL 100 MG TAB PO SCH ×2 (08:16→21:00)
[2019-02-14] MEDS: COLLAGENASE 5 GM (UD JAR) TOP SCH ×2 (08:17→08:35)
[2019-02-14] MEDS: LISINOPRIL 20 MG TAB PO SCH ×2 (08:17→08:34)
[2019-02-14] MEDS: DAKINS 0.0125%(1/40) 473 ML SOLUTION TP SCH ×2 (08:17→08:35)
[2019-02-14] MEDS: MUPIROCIN 2% 22 GM OINT TOP SCH ×3 (08:18→21:00)
[2019-02-14] MEDS: CLOTRIMAZOLE 1% 30 GM CR TOP SCH ×3 (08:18→21:00)
[2019-02-14] MEDS: ENOXAPARIN 40 MG/0.4 ML SYG SC SCH (08:19)
[2019-02-14] MEDS: POLYETHYLENE GLYCOL 17 GM PACKET PO SCH ×2 (08:26→08:34)
[2019-02-14] MEDS: hydrALAzine 20 MG INJ IV PRN (09:03)
--- NOTE | 2019-02-14 12:12 | CONS ---
Assessment/Plan Assessment/Plan Hospital Course (Demo Recall) All noted, pt had been noncompliant no fevers, nad Left and right buttock wounds grew MRSA, Pseudomonas, Enterococcus, Corynebacterium group JK Blood culture on admission grew staph species 1 out of 2 sets Antimicrobials: Gent, Daptomycin ALLERGIES: HE IS NOT ALLERGIC TO ANY ANTIBIOTICS. PHYSICAL EXAMINATION: GENERAL: Well-developed elderly -[place] man who is in no distress. HEENT: Head is atraumatic, normocephalic. Sclerae are anicteric. Buccal mucosa is dry. NECK: Supple. CHEST: Rise symmetrical. Breath sounds diminished to bases. HEART: S1, S2. ABDOMEN: Soft. Bowel tones are present. EXTREMITIES: With bilateral lower extremities dressing intact. Assessment: 1. Bilateral lower extremities diabetic ulcerations 2. Left foot osteomyelitis 3. Diabetes with diabetic neuropathy 4. Bilateral buttocks ulcerations, status post debridement 5. Coag negative staph bacteremia consistent with contaminant 6. Noncompliance Plan: Stable, continue Daptomycin and Gentamicin to complete 2 weeks==> last dose February 23, then change to IV Vanco and IV Rocephin till March 22 to complete course for OM, continue wound care per podiatry and surgical teams Consultation Date/Type/Reason Admit Date/Time Feb 06, 2019 at 03:18 Initial Consult Date 02/07/19 Type of Consult id Requesting Provider: MASOUD SOLANO DPM Date/Time of Note DATE: 02/14/19 TIME: 12:11 Exam/Review of Systems Exam Vitals Vital Signs Date Temp Pulse Resp B/P (MAP) Pulse Ox O2 O2 Flow FiO2 Time Delivery Rate 02/14/19 98.1 83 18 178/78 96 Room Air 07:56 (111) Intake and Output 02/13/19 02/13/19 02/14/19 1515:00 23:00 07:00 IntakeIntake Total 600 ml 618 ml OutputOutput Total 1500 ml BalanceBalance 600 ml -882 ml Results Result Diagram: 02/13/19 1540 02/13/19 1540 Results 24hrs Laboratory Tests Test 02/13/19 13:35 02/13/19 15:40 02/13/19 17:42 02/13/19 20:40 Bedside Glucose 130 107 105 White Blood Count 4.5 L Red Blood Count 3.26 L Hemoglobin 8.7 L Hematocrit 28.0 L Mean Corpuscular 85.9 Volume Mean Corpuscular 26.7 L Hemoglobin Mean Corpuscular 31.1 L Hemoglobin Concent Red Cell 14.3 Distribution Width Platelet Count 426 H Mean Platelet Volume 9.2 Immature 0.200 Granulocytes % Neutrophils % 59.2 Lymphocytes % 29.4 Monocytes % 7.4 Eosinophils % 2.7 Basophils % 1.1 Nucleated Red Blood 0.0 Cells % Immature 0.010 Granulocytes # Neutrophils # 2.6 Lymphocytes # 1.3 Monocytes # 0.3 Eosinophils # 0.1 Basophils # 0.1 Nucleated Red Blood 0.0 Cells # Sodium Level 140 Potassium Level 3.8 Chloride Level 109 Carbon Dioxide Level 23 Anion Gap 8 Blood Urea Nitrogen 11 Creatinine 0.79 Est Glomerular > 60 Filtrat Rate mL/min Glucose Level 106 Calcium Level 8.7 Gentamicin Level 2.2 *H Trough Test 02/14/19 08:12 02/14/19 10:00 Bedside Glucose 104 Urine Random 79.65 Creatinine Urine Random Sodium 156 H Urine Opiates Screen Negative Urine Barbiturates Negative Urine Amphetamines Negative Screen Urine Negative Benzodiazepines Screen Urine Cocaine Screen Negative Urine Cannabinoids Negative Medications Medication Current Medications IV Flush (NS 3 ml) 3 ml PER PROTOCOL IV Last administered on 02/14/19at 08:13; Admin Dose 3 ML; Start 02/06/19 at 05:30 Ondansetron HCl (Zofran Inj) 4 mg Q6H PRN IV NAUSEA/VOMITING; Start 02/06/19 at 05:30 Acetaminophen (Tylenol Tab) 650 mg Q6H PRN PO .PAIN 1-3 OR TEMP Last administered on 02/06/19at 21:57; Admin Dose 650 MG; Start 02/06/19 at 05:30 Acetaminophen/ Hydrocodone Bitart ([place] (5/325)) 1 tab Q6H PRN PO .MOD PAIN 4- 6 Last administered on 02/12/19at 18:20; Admin Dose 1 TAB; Start 02/06/19 at 05:30 Morphine Sulfate (morphine) 2 mg Q4H PRN IV .SEVERE PAIN 7-10; Start 02/06/19 at 05:30 Docusate Sodium (Colace) 100 mg Q12H PRN PO .CONSTIPATION; Start 02/06/19 at 05:30 Magnesium Hydroxide (Milk Of Mag) 30 ml DAILY PRN PO .CONSTIPATION Last administered on 02/09/19at 13:58; Admin Dose 30 ML; Start 02/06/19 at 05:30 Lorazepam (Ativan) 0.5 mg Q6H PRN IV ANXIETY; Start 02/06/19 at 05:30 Albuterol/ Ipratropium (Duoneb) 3 ml Q4H RESP THERAPY PRN HHN SHORTNESS OF BREATH; Start 02/06/19 at 05:30 Hydralazine HCl (Apresoline) 10 mg Q6H PRN IV ELEVATED BLOOD PRESSURE Last administered on 02/14/19at 09:03; Admin Dose 10 MG; Start 02/06/19 at 05:30 Clonidine (Catapres) 0.1 mg Q6H PRN PO ELEVATED SYSTOLIC BP Last administered on 02/09/19at 15:16; Admin Dose 0.1 MG; Start 02/06/19 at 05:30 Nitroglycerin (Nitroglycerin (Sl Tab) 0.4 Mg) 1 tab Q5M PRN SL ANGINA; Start 02/06/19 at 05:30 Ascorbic Acid (Vitamin C) 500 mg DAILY PO Last administered on 02/10/19at 08:25; Admin Dose 500 MG; Start 02/06/19 at 09:00 Gabapentin (Neurontin) 100 mg TID PO Last administered on 02/13/19at 21:09; Admin Dose 100 MG; Start 02/06/19 at 09:00 Multivitamins Therapeutic (Theragran) 1 tab DAILY PO Last administered on 02/10/19at 08:25; Admin Dose 1 TAB; Start 02/06/19 at 09:00 Miscellaneous Information Patients own medicat... BID@10,16 XX ; Start 02/06/19 at 16:00 Diagnostic Test (Pha) (Accu-Chek) 1 ea 02 XX ; Start 02/07/19 at 02:00 Insulin Glargine (Lantus) 20 units DAILY@0800 SC ; Start 02/06/19 at 15:30 Insulin Aspart (Novolog Insulin Pen) NOVOLOG *MILD* ALGORITHM WITH MEALS BEDTIME SC ; Start 02/06/19 at 18:00 Miscellaneous Information 1 ea NOTE XX ; Start 02/06/19 at 14:30 Glucose (Glutose) 15 gm Q15M PRN PO DECREASED GLUCOSE; Start 02/06/19 at 14:30 Glucose (Glutose) 22.5 gm Q15M PRN PO DECREASED GLUCOSE; Start 02/06/19 at 14:30 Dextrose (D50w Syringe) 25 ml Q15M PRN IV DECREASED GLUCOSE; Start 02/06/19 at 14:30 Dextrose (D50w Syringe) 50 ml Q15M PRN IV DECREASED GLUCOSE; Start 02/06/19 at 14:30 Glucagon (Glucagen) 1 mg Q15M PRN IM DECREASED GLUCOSE; Start 02/06/19 at 14:30 Glucose (Glutose) 15 gm Q15M PRN BUCCAL DECREASED GLUCOSE; Start 02/06/19 at 14:30 Collagenase (Santyl) 1 applic DAILY TOP Last administered on 02/13/19 09:13; Admin Dose 1 APPLIC; Start 02/06/19 at 18:30 Collagenase (Santyl) 1 applic PRN PRN TOP WHEN SOILED; Start 02/06/19 at 18:30 Mupirocin (Bactroban) 1 applic BID TOP Last administered on 02/13/19 09:15; Admin Dose 1 APPLIC; Start 02/07/19 at 10:00 Lisinopril (Zestril) 40 mg DAILY PO Last administered on 02/13/19 08:41; Admin Dose 40 MG; Start 02/08/19 at 09:00 Metformin HCl (Glucophage) 1,000 mg WITH BREAKFAST DINNE PO Last administered on 02/13/19 17:47; Admin Dose 1,000 MG; Start 02/07/19 at 18:00 Clotrimazole (Lotrimin Cr) 1 applic BID TOP Last administered on 02/13/19 09:14; Admin Dose 1 APPLIC; Start 02/07/19 at 11:30 Sodium Hypochlorite (Dakins Diluted (40)) 1 applic DAILY TP Last administered on 02/13/19 09:14; Admin Dose 1 APPLIC; Start 02/09/19 at 09:00 Daptomycin 450 mg/ Sodium Chloride 100 ml @ 200 mls/hr Q24H IVPB Last administ ered on 02/13/19at 17:44; Admin Dose 200 MLS/HR; Start 02/10/19 at 16:00 Gentamicin Sulfate (Gentamicin Iv Per Pharmacy) GENTAMICIN PER PHARMACY NOTE XX ; Start 02/10/19 at 14:00 Nifedipine (Procardia Xl) 30 mg BID PO Last administered on 02/13/19at 09:13; Admin Dose 30 MG; Start 02/11/19 at 15:00 Polyethylene Glycol (Miralax) 17 gm DAILY PO Last administered on 02/12/19at 12:40; Admin Dose 17 GM; Start 02/12/19 at 12:30 Famotidine (Pepcid) 20 mg DAILY PO ; Start 02/14/19 at 09:00 Metoprolol Tartrate (Lopressor) 100 mg BID PO Last administered on 02/14/19at 08:16; Admin Dose 100 MG; Start 02/13/19 at 21:00 Aspirin (Halfprin) 81 mg DAILY PO ; Start 02/14/19 at 09:00 Lactobacillus Acidophilus/ Rhamnosus (Culturelle) 1 cap BID PO ; Start 02/13/19 at 21:00 Enoxaparin Sodium (Lovenox) 40 mg DAILY SC Last administered on 02/14/19at 08:19; Admin Dose 40 MG; Start 02/14/19 at 09:00 Nicotine (Nicoderm 14 Mg/ 24hr) 1 patch DAILY PRN TRANSDERM CONTROL WITHDRAWAL SYMPTOMS; Start 02/13/19 at 15:00 Gentamicin Sulfate 360 mg/ Sodium Chloride 109 ml @ 109 mls/hr Q36H IVPB Last administered on 02/14/19at 06:34; Admin Dose 109 MLS/HR; Start 02/14/19 at 06:00 CHANTALE RAMIREZ NP Feb 14, 2019 12:12
--- NOTE | 2019-02-14 15:14 | PN ---
Date/Time of Note Date/Time of Note DATE: 02/14/19 TIME: 15:11 Assessment/Plan VTE Prophylaxis Risk score (from Nsg)>0 risk: 6 SCD applied (from Nsg): No SCD contraindicated: low risk/ambulating Pharmacological prophylaxis: LMWH Lines/Catheters IV Catheter Type (from Nrsg): Peripheral IV Urinary Cath still in place: Yes Reason Cath still needed: urinary retention Assessment/Plan Hospital Course Assessment and plan 1. Bilateral lwr ext ulcers, stable cont local wound care/offload 2. Chr bilateral buttock ulcer status post debridement, offload 3. Chr debility/ wheelchair-bound status, prognosis guarded 4. Failure to thrive homeless, needs placement. SNF needs wound care instructions. Antibiotic instructions are below. 5. Type 2 diabetes nonadherent to insulin coverage scale 6. Metabolic syndrome 7. Hypertension not at goal; nonadherent to therapy. High risk of stroke 8. Tobacco abuse, counseling patch 9. COPD? 10. Psychosis, not otherwise specified 11. Chr neurogenic bladder, probably diabetic associated, continue straight cath as needed 12. Chr OM last mnth: Daptomycin/ Gentamicin [2 wks/ till 02/23]. then change to IV Vanco/ Rocephin till 03/22 to complete course for OM. 13. Anemia 14. Vitamin D deficiency 10. Nonadherence; attempted counseling. High risk of stroke 16. Onychomycosis S: 02/13 events noted 02/14 refusing medications for blood pressure etc. awaiting SNF approval O: Bp elevated PE No pallor droop Regular no mrg Clear Bs present nt nd no RRG Hypotonia, contractures. ~diabetic neuropathy. wounds dressed Result Diagram: 02/13/19 1540 02/13/19 1540 Results 24hrs Laboratory Tests Test 02/13/19 15:40 02/13/19 17:42 02/13/19 20:40 02/14/19 08:12 White Blood Count 4.5 L Red Blood Count 3.26 L Hemoglobin 8.7 L Hematocrit 28.0 L Mean Corpuscular 85.9 Volume Mean Corpuscular 26.7 L Hemoglobin Mean Corpuscular 31.1 L Hemoglobin Concent Red Cell 14.3 Distribution Width Platelet Count 426 H Mean Platelet Volume 9.2 Immature 0.200 Granulocytes % Neutrophils % 59.2 Lymphocytes % 29.4 Monocytes % 7.4 Eosinophils % 2.7 Basophils % 1.1 Nucleated Red Blood 0.0 Cells % Immature 0.010 Granulocytes # Neutrophils # 2.6 Lymphocytes # 1.3 Monocytes # 0.3 Eosinophils # 0.1 Basophils # 0.1 Nucleated Red Blood 0.0 Cells # Sodium Level 140 Potassium Level 3.8 Chloride Level 109 Carbon Dioxide Level 23 Anion Gap 8 Blood Urea Nitrogen 11 Creatinine 0.79 Est Glomerular > 60 Filtrat Rate mL/min Glucose Level 106 Calcium Level 8.7 Gentamicin Level 2.2 *H Trough Bedside Glucose 107 105 104 Test 02/14/19 10:00 02/14/19 13:21 Urine Random 79.65 Creatinine Urine Random Sodium 156 H Urine Opiates Screen Negative Urine Barbiturates Negative Urine Amphetamines Negative Screen Urine Negative Benzodiazepines Screen Urine Cocaine Screen Negative Urine Cannabinoids Negative Bedside Glucose 118 Exam/Review of Systems Exam Vitals Vital Signs Date Temp Pulse Resp B/P (MAP) Pulse Ox O2 O2 Flow FiO2 Time Delivery Rate 02/14/19 98.1 83 18 178/78 96 Room Air 07:56 (111) Intake and Output 02/13/19 02/13/19 02/14/19 1515:00 23:00 07:00 IntakeIntake Total 600 ml 618 ml OutputOutput Total 1500 ml BalanceBalance 600 ml -882 ml Results Results 24hrs Laboratory Tests Test 02/13/19 15:40 02/13/19 17:42 02/13/19 20:40 02/14/19 08:12 White Blood Count 4.5 L Red Blood Count 3.26 L Hemoglobin 8.7 L Hematocrit 28.0 L Mean Corpuscular 85.9 Volume Mean Corpuscular 26.7 L Hemoglobin Mean Corpuscular 31.1 L Hemoglobin Concent Red Cell 14.3 Distribution Width Platelet Count 426 H Mean Platelet Volume 9.2 Immature 0.200 Granulocytes % Neutrophils % 59.2 Lymphocytes % 29.4 Monocytes % 7.4 Eosinophils % 2.7 Basophils % 1.1 Nucleated Red Blood 0.0 Cells % Immature 0.010 Granulocytes # Neutrophils # 2.6 Lymphocytes # 1.3 Monocytes # 0.3 Eosinophils # 0.1 Basophils # 0.1 Nucleated Red Blood 0.0 Cells # Sodium Level 140 Potassium Level 3.8 Chloride Level 109 Carbon Dioxide Level 23 Anion Gap 8 Blood Urea Nitrogen 11 Creatinine 0.79 Est Glomerular > 60 Filtrat Rate mL/min Glucose Level 106 Calcium Level 8.7 Gentamicin Level 2.2 *H Trough Bedside Glucose 107 105 104 Test 02/14/19 10:00 02/14/19 13:21 Urine Random 79.65 Creatinine Urine Random Sodium 156 H Urine Opiates Screen Negative Urine Barbiturates Negative Urine Amphetamines Negative Screen Urine Negative Benzodiazepines Screen Urine Cocaine Screen Negative Urine Cannabinoids Negative Bedside Glucose 118 Medications Medication Current Medications IV Flush (NS 3 ml) 3 ml PER PROTOCOL IV Last administered on 02/14/19at 08:13; A dmin Dose 3 ML; Start 02/06/19 at 05:30 Ondansetron HCl (Zofran Inj) 4 mg Q6H PRN IV NAUSEA/VOMITING; Start 02/06/19 at 05:30 Acetaminophen (Tylenol Tab) 650 mg Q6H PRN PO .PAIN 1-3 OR TEMP Last admin istered on 02/06/19at 21:57; Admin Dose 650 MG; Start 02/06/19 at 05:30 Acetaminophen/ Hydrocodone Bitart ([place] (5/325)) 1 tab Q6H PRN PO .MOD PAIN 4- 6 Last administered on 02/12/19at 18:20; Admin Dose 1 TAB; Start 02/06/19 at 05:30 Morphine Sulfate (morphine) 2 mg Q4H PRN IV .SEVERE PAIN 7-10; Start 02/06/19 at 05:30 Docusate Sodium (Colace) 100 mg Q12H PRN PO .CONSTIPATION; Start 02/06/19 at 05:30 Magnesium Hydroxide (Milk Of Mag) 30 ml DAILY PRN PO .CONSTIPATION Last administered on 02/09/19at 13:58; Admin Dose 30 ML; Start 02/06/19 at 05:30 Lorazepam (Ativan) 0.5 mg Q6H PRN IV ANXIETY; Start 02/06/19 at 05:30 Albuterol/ Ipratropium (Duoneb) 3 ml Q4H RESP THERAPY PRN HHN SHORTNESS OF BREATH; Start 02/06/19 at 05:30 Hydralazine HCl (Apresoline) 10 mg Q6H PRN IV ELEVATED BLOOD PRESSURE Last a dministered on 02/14/19at 09:03; Admin Dose 10 MG; Start 02/06/19 at 05:30 Clonidine (Catapres) 0.1 mg Q6H PRN PO ELEVATED SYSTOLIC BP Last administered on 02/09/19at 15:16; Admin Dose 0.1 MG; Start 02/06/19 at 05:30 Nitroglycerin (Nitroglycerin (Sl Tab) 0.4 Mg) 1 tab Q5M PRN SL ANGINA; Start 02/06/19 at 05:30 Ascorbic Acid (Vitamin C) 500 mg DAILY PO Last administered on 02/10/19at 08:25; Admin Dose 500 MG; Start 02/06/19 at 09:00 Gabapentin (Neurontin) 100 mg TID PO Last administered on 02/14/19at 13:22; Admin Dose 100 MG; Start 02/06/19 at 09:00 Multivitamins Therapeutic (Theragran) 1 tab DAILY PO Last administered on 02/10/19at 08:25; Admin Dose 1 TAB; Start 02/06/19 at 09:00 Miscellaneous Information Patients own medicat... BID@10,16 XX ; Start 02/06/19 at 16:00 Diagnostic Test (Pha) (Accu-Chek) 1 ea 02 XX ; Start 02/07/19 at 02:00 Insulin Glargine (Lantus) 20 units DAILY@0800 SC ; Start 02/06/19 at 15:30 Insulin Aspart (Novolog Insulin Pen) NOVOLOG *MILD* ALGORITHM WITH MEALS BEDTIME SC ; Start 02/06/19 at 18:00 Miscellaneous Information 1 ea NOTE XX ; Start 02/06/19 at 14:30 Glucose (Glutose) 15 gm Q15M PRN PO DECREASED GLUCOSE; Start 02/06/19 at 14:30 Glucose (Glutose) 22.5 gm Q15M PRN PO DECREASED GLUCOSE; Start 02/06/19 at 14:30 Dextrose (D50w Syringe) 25 ml Q15M PRN IV DECREASED GLUCOSE; Start 02/06/19 at 14:30 Dextrose (D50w Syringe) 50 ml Q15M PRN IV DECREASED GLUCOSE; Start 02/06/19 at 14:30 Glucagon (Glucagen) 1 mg Q15M PRN IM DECREASED GLUCOSE; Start 02/06/19 at 14:30 Glucose (Glutose) 15 gm Q15M PRN BUCCAL DECREASED GLUCOSE; Start 02/06/19 at 14:30 Collagenase (Santyl) 1 applic DAILY TOP Last administered on 02/13/19 09:13; Admin Dose 1 APPLIC; Start 02/06/19 at 18:30 Collagenase (Santyl) 1 applic PRN PRN TOP WHEN SOILED; Start 02/06/19 at 18:30 Mupirocin (Bactroban) 1 applic BID TOP Last administered on 02/13/19 09:15; Admin Dose 1 APPLIC; Start 02/07/19 at 10:00 Lisinopril (Zestril) 40 mg DAILY PO Last administered on 02/13/19 08:41; Admin Dose 40 MG; Start 02/08/19 at 09:00 Metformin HCl (Glucophage) 1,000 mg WITH BREAKFAST DINNE PO Last administered on 02/13/19 17:47; Admin Dose 1,000 MG; Start 02/07/19 at 18:00 Clotrimazole (Lotrimin Cr) 1 applic BID TOP Last administered on 02/13/19 09:14; Admin Dose 1 APPLIC; Start 02/07/19 at 11:30 Sodium Hypochlorite (Dakins Diluted (40)) 1 applic DAILY TP Last administered on 02/13/19 09:14; Admin Dose 1 APPLIC; Start 02/09/19 at 09:00 Daptomycin 450 mg/ Sodium Chloride 100 ml @ 200 mls/hr Q24H IVPB Last administered on 02/13/19 17:44; Admin Dose 200 MLS/HR; Start 02/10/19 at 16:00 Gentamicin Sulfate (Gentamicin Iv Per Pharmacy) GENTAMICIN PER PHARMACY NOTE XX ; Start 02/10/19 at 14:00 Nifedipine (Procardia Xl) 30 mg BID PO Last administered on 02/13/19 09:13; Admin Dose 30 MG; Start 02/11/19 at 15:00 Polyethylene Glycol (Miralax) 17 gm DAILY PO Last administered on 02/12/19 12:40; Admin Dose 17 GM; Start 02/12/19 at 12:30 Famotidine (Pepcid) 20 mg DAILY PO ; Start 02/14/19 at 09:00 Metoprolol Tartrate (Lopressor) 100 mg BID PO Last administered on 02/14/19 08:16; Admin Dose 100 MG; Start 02/13/19 at 21:00 Aspirin (Halfprin) 81 mg DAILY PO ; Start 02/14/19 at 09:00 Lactobacillus Acidophilus/ Rhamnosus (Culturelle) 1 cap BID PO ; Start 02/13/19 at 21:00 Enoxaparin Sodium (Lovenox) 40 mg DAILY SC Last administered on 02/14/19at 08:19; Admin Dose 40 MG; Start 02/14/19 at 09:00 Nicotine (Nicoderm 14 Mg/ 24hr) 1 patch DAILY PRN TRANSDERM CONTROL WITHDRAWAL SYMPTOMS; Start 02/13/19 at 15:00 Gentamicin Sulfate 360 mg/ Sodium Chloride 109 ml @ 109 mls/hr Q36H IVPB Last administered on 02/14/19at 06:34; Admin Dose 109 MLS/HR; Start 02/14/19 at 06:00 DAYDAY HERNANDEZ MD Feb 14, 2019 15:14
--- NOTE | 2019-02-14 15:46 | PN ---
Date/Time of Note Date/Time of Note DATE: 02/14/19 TIME: 15:40 Assessment/Plan Lines/Catheters IV Catheter Type (from Nrs): Peripheral IV Chanel in Place (from Nrs): Yes Assessment/Plan Chief Complaint/Hosp Course 1. Multiple wounds s/p debridement of bilat buttock 02/07/19 -further debridement prn -Continue local care> w dakins -frequent turning and off-loading -low air loss mattress -vitamin c -short term zinc -optimize nutrition -bilateral LE wounds: per podiatry 2. Osteomyelitis BLE; currently on iv abx -abx per ID> discharge placement pending 3. Hypertension -nutrition and medication management 4. Diabetes: hga1c: 6.5 -nutrition and medication management 5. Diabetic neuropathy -safety precs (ensure no lines/tubes, etc on skin) -diabetes optimization 6. Hypochromic anemia -monitor and tx as needed 7. Depression -psych optimization 8. Hypocalcemia: likely multifactorial -nutrition optimization -treat infections 9. 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 Patient seen and examined in collaboration with Dr. Kj Moran Subjective 24 Hr Interval Summary Intermittent medication refusal. No fevers, chills, sob, congested cough, cp, palpitations, koch, dizziness, n/v/d/dysuria, bilat buttock wound drainage. Exam/Review of Systems Vital Signs Vitals Vital Signs Date Temp Pulse Resp B/P (MAP) Pulse Ox O2 O2 Flow FiO2 Time Delivery Rate 02/14/19 98.1 83 18 178/78 96 Room Air 07:56 (111) Intake and Output 02/13/19 02/13/19 02/14/19 1515:00 23:00 07:00 IntakeIntake Total 600 ml 618 ml OutputOutput Total 1500 ml BalanceBalance 600 ml -882 ml Exam Free Text/Dictation Constitutional: alert, oriented, well developed Psych: nl mood/affect, labile Head: normocephalic, atraumatic Eyes: nl conjunctiva, EOMI, nl lids, nl sclera ENMT: nl external ears & nose, nl lips & teeth, mucosa pink and moist Neck: supple, non-tender; No jvd Respiratory: normal air movement; No congested cough Cardiovascular: regular rate and rhythm, nl pulses; No edema Gastrointestinal: soft, non-tender Genitourinary - Male: nl penis, nl scrotum Musculoskeletal: nl extremities to inspection, other (contracted BLE) Extremities: normal pulses; No pitting pedal edema Neurological: nl mental status, nl speech, nl strength Skin: other (multiple wounds: bilat buttock: clean, no periwound erythema, scant drainage); BLE: wounds: dry No rash or lesions Lymph: No nl lymph nodes Results Result Diagram: 02/13/19 1540 02/13/19 1540 CALLY NOEL NP Feb 14, 2019 15:45
[2019-02-14] MEDS: DAPTOMYCIN 450 MG in SOD CHLORIDE 0.9% 100 ML IVPB SCH (15:52)
[2019-02-14 19:58] VITALS: BP 168/84; PULSE 83; RESP 18
[2019-02-15] MEDS: ACCU-CHEK XX SCH (02:00)
[2019-02-15 07:26] VITALS: BP 191/87; PULSE 81; RESP 18
[2019-02-15] MEDS: INSULIN GLARGINE [LANTus] (100 UNITS/ML) SYG SC SCH (08:00)
[2019-02-15] MEDS: INSULIN ASPART [NOVOLOG] 3 ML PEN SC SCH ×4 (08:00→21:00)
[2019-02-15] MEDS: metFORMIN 500 MG TAB PO SCH ×2 (08:47→17:15)
[2019-02-15] MEDS: LACTOBACILLUS RHAMNOSUS CAP PO SCH ×2 (08:47→20:26)
[2019-02-15] MEDS: GABAPENTIN 100 MG CAP PO SCH ×3 (08:47→20:26)
[2019-02-15] MEDS: hydrALAzine 20 MG INJ IV PRN ×2 (08:59→21:36)
[2019-02-15] MEDS: POLYETHYLENE GLYCOL 17 GM PACKET PO SCH (09:00)
[2019-02-15] MEDS: METOPROLOL 100 MG TAB PO SCH ×2 (09:00→21:00)
[2019-02-15] MEDS: COLLAGENASE 5 GM (UD JAR) TOP SCH (09:00)
[2019-02-15] MEDS: MULTIVITAMINS THERAPEUTIC TAB PO SCH (09:00)
[2019-02-15] MEDS: ASCORBIC ACID 500 MG TAB PO SCH (09:00)
[2019-02-15] MEDS: ENOXAPARIN 40 MG/0.4 ML SYG SC SCH (09:00)
[2019-02-15] MEDS: NIFEdipine (XL) 30 MG TAB PO SCH ×2 (09:00→21:00)
[2019-02-15] MEDS: LISINOPRIL 20 MG TAB PO SCH (09:00)
[2019-02-15] MEDS: ASPIRIN (EC) 81 MG TAB PO SCH (09:00)
[2019-02-15] MEDS: FAMOTIDINE 20 MG TAB PO SCH (09:00)
--- NOTE | 2019-02-15 10:01 | PN ---
Date/Time of Note Date/Time of Note DATE: 02/15/19 TIME: 10:01 Assessment/Plan VTE Prophylaxis Risk score (from Ns)>0 risk: 4 SCD applied (from Ns): No SCD contraindicated: other Pharmacological prophylaxis: LMWH Pharm contraindication: patient refusal Lines/Catheters IV Catheter Type (from [facility] Peripheral IV Urinary Cath still in place: Yes Reason Cath still needed: urinary retention Assessment/Plan Hospital Course SUBJECTIVE: Patient refusing most of his medications. OBJECTIVE: Physical Exam General: Adequately build 63 year-old male lying in bed in no apparent distress. HEENT: Normocephalic, atraumatic. Eyes: Anicteric sclerae, conjunctivae clear. ENT: Nasal septum midline, oral mucosa moist. Neck supple. Respiratory: Bilaterally diminished. Breath sounds. No use of accessory muscles of respiration. No adventitious breath sounds. Cardiovascular: S1, S2 heard. No murmurs or gallops. Abdomen: Soft, nontender, and nondistended. Bowel sounds positive in all 4 quadrants. Genitourinary: Deferred. Extremities: Bilateral lower extremity contracted with bilateral foot wounds Neurologic: The patient is awake, alert, and oriented. Labs & Vitals per chart ASSESSMENT & PLAN 63-year-old male who is wheelchair-bound, past medical history of hypertension, sacral decubitus ulcers, diabetes, osteomyelitis, smoking history, homelessness, anemia, and neurogenic bladder, who presented with worsening diabetic foot ulcers on his bilateral feet. 1. Osteomyelitis of the left fifth metatarsal (01/20/2019). Incompletely treated with IV antibiotics as per recommendations because of noncompliance. Daptomycin/gentamicin until 02/23/2019, then changed to IV Vanco plus Rocephin 03/22/2019 to complete the course of antibiotics. ID following. 2. Chronic bilateral lower extremity ulcers. Continue local wound care. Status post podiatry evaluation. 3. Multiple bilateral gluteal wounds. Continue antimicrobials as per ID. Status post debridement on 02/07/2019. Cultures showing polymicrobial's including MRSA and VRE. 4. Hypertension. Continue antihypertensives. 5. Diabetes mellitus. Hemoglobin A1c 6.5. Continue metformin. Refusing insulin. 6. Peripheral neuropathy. Continue gabapentin. 7. Normocytic anemia. Probably anemia of chronic disease. 8. Nicotine use. Cessation advised. 9. Debility with contractures. Wheelchair-bound. Physical therapy. 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 11. Chronic neurogenic bladder. Chanel cath in place. 12. Noncompliance with medications and medical management. Counseling. 13. Fluids, electrolytes, and nutrition. Carbohydrate controlled diet. 14. DVT prophylaxis. Subcutaneous Lovenox (patient refusing). 15. Plan. Continue antimicrobials as per ID. Continue local wound care. Await clinical improvement/placement to a nursing facility. The patient was seen in collaboration with Dr. Banks. Result Diagram: 02/13/19 1540 02/13/19 1540 Results 24hrs Laboratory Tests Test 02/14/19 13:21 02/14/19 17:15 02/14/19 21:08 02/15/19 08:43 Bedside Glucose 118 166 146 111 Exam/Review of Systems Exam Vitals Vital Signs Date Temp Pulse Resp B/P (MAP) Pulse Ox O2 O2 Flow FiO2 Time Delivery Rate 02/15/19 98.3 81 18 191/87 97 Room Air 07:26 (121) Intake and Output 02/14/19 02/14/19 02/15/19 1414:59 22:59 06:59 IntakeIntake Total 1009 ml 400 ml OutputOutput Total 800 ml 900 ml BalanceBalance 209 ml 400 ml -900 ml Results Results 24hrs Laboratory Tests Test 02/14/19 13:21 02/14/19 17:15 02/14/19 21:08 02/15/19 08:43 Bedside Glucose 118 166 146 111 Medications Medication Current Medications IV Flush (NS 3 ml) 3 ml PER PROTOCOL IV Last administered on 02/14/19at 08:13; Admin Dose 3 ML; Start 02/06/19 at 05:30 Ondansetron HCl (Zofran Inj) 4 mg Q6H PRN IV NAUSEA/VOMITING; Start 02/06/19 at 05:30 Acetaminophen (Tylenol Tab) 650 mg Q6H PRN PO .PAIN 1-3 OR TEMP Last administered on 02/06/19at 21:57; Admin Dose 650 MG; Start 02/06/19 at 05:30 Acetaminophen/ Hydrocodone Bitart ([place] (5/325)) 1 tab Q6H PRN PO .MOD PAIN 4- 6 Last administered on 02/12/19at 18:20; Admin Dose 1 TAB; Start 02/06/19 at 05:30 Morphine Sulfate (morphine) 2 mg Q4H PRN IV .SEVERE PAIN 7-10; Start 02/06/19 at 05:30 Docusate Sodium (Colace) 100 mg Q12H PRN PO .CONSTIPATION; Start 02/06/19 at 05:30 Magnesium Hydroxide (Milk Of Mag) 30 ml DAILY PRN PO .CONSTIPATION Last administered on 02/09/19at 13:58; Admin Dose 30 ML; Start 02/06/19 at 05:30 Lorazepam (Ativan) 0.5 mg Q6H PRN IV ANXIETY; Start 02/06/19 at 05:30 Albuterol/ Ipratropium (Duoneb) 3 ml Q4H RESP THERAPY PRN HHN SHORTNESS OF BREATH; Start 02/06/19 at 05:30 Hydralazine HCl (Apresoline) 10 mg Q6H PRN IV ELEVATED BLOOD PRESSURE Last administered on 02/15/19at 08:59; Admin Dose 10 MG; Start 02/06/19 at 05:30 Clonidine (Catapres) 0.1 mg Q6H PRN PO ELEVATED SYSTOLIC BP Last administered on 02/09/19at 15:16; Admin Dose 0.1 MG; Start 02/06/19 at 05:30 Nitroglycerin (Nitroglycerin (Sl Tab) 0.4 Mg) 1 tab Q5M PRN SL ANGINA; Start 02/06/19 at 05:30 Ascorbic Acid (Vitamin C) 500 mg DAILY PO Last administered on 02/10/19at 08:25; Admin Dose 500 MG; Start 02/06/19 at 09:00 Gabapentin (Neurontin) 100 mg TID PO Last administered on 02/15/19at 08:47; Admin Dose 100 MG; Start 02/06/19 at 09:00 Multivitamins Therapeutic (Theragran) 1 tab DAILY PO Last administered on 02/10/19at 08:25; Admin Dose 1 TAB; Start 02/06/19 at 09:00 Miscellaneous Information Patients own medicat... BID@10,16 XX ; Start 02/06/19 at 16:00 Diagnostic Test (Pha) (Accu-Chek) 1 ea 02 XX ; Start 02/07/19 at 02:00 Insulin Glargine (Lantus) 20 units DAILY@0800 SC ; Start 02/06/19 at 15:30 Insulin Aspart (Novolog Insulin Pen) NOVOLOG *MILD* ALGORITHM WITH MEALS BEDTIME SC ; Start 02/06/19 at 18:00 Miscellaneous Information 1 ea NOTE XX ; Start 02/06/19 at 14:30 Glucose (Glutose) 15 gm Q15M PRN PO DECREASED GLUCOSE; Start 02/06/19 at 14:30 Glucose (Glutose) 22.5 gm Q15M PRN PO DECREASED GLUCOSE; Start 02/06/19 at 14:30 Dextrose (D50w Syringe) 25 ml Q15M PRN IV DECREASED GLUCOSE; Start 02/06/19 at 14:30 Dextrose (D50w Syringe) 50 ml Q15M PRN IV DECREASED GLUCOSE; Start 02/06/19 at 14:30 Glucagon (Glucagen) 1 mg Q15M PRN IM DECREASED GLUCOSE; Start 02/06/19 at 14:30 Glucose (Glutose) 15 gm Q15M PRN BUCCAL DECREASED GLUCOSE; Start 02/06/19 at 14:30 Collagenase (Santyl) 1 applic DAILY TOP Last administered on 02/13/19at 09:13; Admin Dose 1 APPLIC; Start 02/06/19 at 18:30 Collagenase (Santyl) 1 applic PRN PRN TOP WHEN SOILED; Start 02/06/19 at 18:30 Mupirocin (Bactroban) 1 applic BID TOP Last administered on 02/13/19at 09:15; Admin Dose 1 APPLIC; Start 02/07/19 at 10:00 Lisinopril (Zestril) 40 mg DAILY PO Last administered on 02/13/19at 08:41; Admin Dose 40 MG; Start 02/08/19 at 09:00 Metformin HCl (Glucophage) 1,000 mg WITH BREAKFAST DINNE PO Last administered on 02/15/19at 08:47; Admin Dose 1,000 MG; Start 02/07/19 at 18:00 Clotrimazole (Lotrimin Cr) 1 applic BID TOP Last administered on 02/13/19at 09:14; Admin Dose 1 APPLIC; Start 02/07/19 at 11:30 Sodium Hypochlorite (Dakins Diluted (/40)) 1 applic DAILY TP Last administered on 02/13/19at 09:14; Admin Dose 1 APPLIC; Start 02/09/19 at 09:00 Daptomycin 450 mg/ Sodium Chloride 100 ml @ 200 mls/hr Q24H IVPB Last administered on 02/14/19at 15:52; Admin Dose 200 MLS/HR; Start 02/10/19 at 16:00 Gentamicin Sulfate (Gentamicin Iv Per Pharmacy) GENTAMICIN PER PHARMACY NOTE XX ; Start 02/10/19 at 14:00 Nifedipine (Procardia Xl) 30 mg BID PO Last administered on 02/13/19at 09:13; Admin Dose 30 MG; Start 02/11/19 at 15:00 Polyethylene Glycol (Miralax) 17 gm DAILY PO Last administered on 02/12/19at 12:40; Admin Dose 17 GM; Start 02/12/19 at 12:30 Famotidine (Pepcid) 20 mg DAILY PO ; Start 02/14/19 at 09:00 Metoprolol Tartrate (Lopressor) 100 mg BID PO Last administered on 02/14/19at 08:16; Admin Dose 100 MG; Start 02/13/19 at 21:00 Aspirin (Halfprin) 81 mg DAILY PO ; Start 02/14/19 at 09:00 Lactobacillus Acidophilus/ Rhamnosus (Culturelle) 1 cap BID PO Last administered on 02/15/19at 08:47; Admin Dose 1 CAP; Start 02/13/19 at 21:00 Enoxaparin Sodium (Lovenox) 40 mg DAILY SC Last administered on 02/14/19at 08:19; Admin Dose 40 MG; Start 02/14/19 at 09:00 Nicotine (Nicoderm 14 Mg/ 24hr) 1 patch DAILY PRN TRANSDERM CONTROL WITHDRAWAL SYMPTOMS; Start 02/13/19 at 15:00 Gentamicin Sulfate 360 mg/ Sodium Chloride 109 ml @ 109 mls/hr Q36H IVPB Last administered on 02/14/19at 06:34; Admin Dose 109 MLS/HR; Start 02/14/19 at 06:00 EV HARO NP Feb 15, 2019 10:01
[2019-02-15 14:00] VITALS: BP 183/79; PULSE 89; RESP 18
--- NOTE | 2019-02-15 15:43 | CONS ---
Consultation Date/Type/Reason Admit Date/Time Feb 06, 2019 at 03:18 Initial Consult Date 02/07/19 Type of Consult SUBJECTIVE: Pt is awake, looks comfortable. NO acute events over night. VS: stable T: 98.1 LABS: Reviewed. Left and right buttock wounds grew MRSA, Pseudomonas, Enterococcus, Corynebacterium group JK Blood culture on admission grew staph species 1 out of 2 sets Antimicrobials: Gent, Daptomycin ALLERGIES: HE IS NOT ALLERGIC TO ANY ANTIBIOTICS. PHYSICAL EXAMINATION: GENERAL: Well-developed elderly -[place] man who is in no distress. HEENT: Head is atraumatic, normocephalic. Sclerae are anicteric. Buccal mucosa is dry. NECK: Supple. CHEST: Rise symmetrical. Breath sounds diminished to bases. HEART: S1, S2. ABDOMEN: Soft. Bowel tones are present. EXTREMITIES: With bilateral lower extremities dressing intact. Assessment: 1. Bilateral lower extremities diabetic ulcerations 2. Left foot osteomyelitis 3. Diabetes with diabetic neuropathy 4. Bilateral buttocks ulcerations, status post debridement 5. Coag negative staph bacteremia consistent with contaminant 6. Noncompliance Plan: Pt is stable. Continue Daptomycin and Gentamicin to complete 2 weeks==> last dose February 23, then change to IV Vanco and IV Rocephin till March 22 to complete course for OM. Continue wound care per podiatry and surgical teams Requesting Provider: MASOUD SOLANO DPM Date/Time of Note DATE: 02/15/19 TIME: 15:41 Exam/Review of Systems Exam Vitals Vital Signs Date Temp Pulse Resp B/P (MAP) Pulse Ox O2 O2 Flow FiO2 Time Delivery Rate 02/15/19 98.1 89 18 183/79 98 Room Air 14:00 (113) Intake and Output 02/14/19 02/14/19 02/15/19 1515:00 23:00 07:00 IntakeIntake Total 1009 ml 400 ml OutputOutput Total 800 ml 900 ml BalanceBalance 209 ml 400 ml -900 ml Results Result Diagram: 02/13/19 1540 02/13/19 1540 Results 24hrs Laboratory Tests Test 02/14/19 17:15 02/14/19 21:08 02/15/19 08:43 02/15/19 12:48 Bedside Glucose 166 146 111 107 Medications Medication Current Medications IV Flush (NS 3 ml) 3 ml PER PROTOCOL IV Last administered on 02/14/19 08:13; Admin Dose 3 ML; Start 02/06/19 at 05:30 Ondansetron HCl (Zofran Inj) 4 mg Q6H PRN IV NAUSEA/VOMITING; Start 02/06/19 at 05:30 Acetaminophen (Tylenol Tab) 650 mg Q6H PRN PO .PAIN 1-3 OR TEMP Last administered on 02/06/19 21:57; Admin Dose 650 MG; Start 02/06/19 at 05:30 Acetaminophen/ Hydrocodone Bitart ([place] (5/325)) 1 tab Q6H PRN PO .MOD PAIN 4- 6 Last administered on 02/12/19 18:20; Admin Dose 1 TAB; Start 02/06/19 at 05:30 Morphine Sulfate (morphine) 2 mg Q4H PRN IV .SEVERE PAIN 7-10; Start 02/06/19 at 05:30 Docusate Sodium (Colace) 100 mg Q12H PRN PO .CONSTIPATION; Start 02/06/19 at 05:30 Magnesium Hydroxide (Milk Of Mag) 30 ml DAILY PRN PO .CONSTIPATION Last administered on 02/09/19 13:58; Admin Dose 30 ML; Start 02/06/19 at 05:30 Lorazepam (Ativan) 0.5 mg Q6H PRN IV ANXIETY; Start 02/06/19 at 05:30 Albuterol/ Ipratropium (Duoneb) 3 ml Q4H RESP THERAPY PRN HHN SHORTNESS OF BREATH; Start 02/06/19 at 05:30 Hydralazine HCl (Apresoline) 10 mg Q6H PRN IV ELEVATED BLOOD PRESSURE Last administered on 02/15/19 08:59; Admin Dose 10 MG; Start 02/06/19 at 05:30 Clonidine (Catapres) 0.1 mg Q6H PRN PO ELEVATED SYSTOLIC BP Last administered on 02/09/19 15:16; Admin Dose 0.1 MG; Start 02/06/19 at 05:30 Nitroglycerin (Nitroglycerin (Sl Tab) 0.4 Mg) 1 tab Q5M PRN SL ANGINA; Start 02/06/19 at 05:30 Ascorbic Acid (Vitamin C) 500 mg DAILY PO Last administered on 6/10/19at 08:25; Admin Dose 500 MG; Start 02/06/19 at 09:00 Gabapentin (Neurontin) 100 mg TID PO Last administered on 02/15/19at 08:47; Admin Dose 100 MG; Start 02/06/19 at 09:00 Multivitamins Therapeutic (Theragran) 1 tab DAILY PO Last administered on 02/10/19at 08:25; Admin Dose 1 TAB; Start 02/06/19 at 09:00 Miscellaneous Information Patients own medicat... BID@10,16 XX ; Start 02/06/19 at 16:00 Diagnostic Test (Pha) (Accu-Chek) 1 ea 02 XX ; Start 02/07/19 at 02:00 Insulin Glargine (Lantus) 20 units DAILY@0800 SC ; Start 02/06/19 at 15:30 Insulin Aspart (Novolog Insulin Pen) NOVOLOG *MILD* ALGORITHM WITH MEALS BEDTIME SC ; Start 02/06/19 at 18:00 Miscellaneous Information 1 ea NOTE XX ; Start 02/06/19 at 14:30 Glucose (Glutose) 15 gm Q15M PRN PO DECREASED GLUCOSE; Start 02/06/19 at 14:30 Glucose (Glutose) 22.5 gm Q15M PRN PO DECREASED GLUCOSE; Start 02/06/19 at 14:30 Dextrose (D50w Syringe) 25 ml Q15M PRN IV DECREASED GLUCOSE; Start 02/06/19 at 14:30 Dextrose (D50w Syringe) 50 ml Q15M PRN IV DECREASED GLUCOSE; Start 02/06/19 at 14:30 Glucagon (Glucagen) 1 mg Q15M PRN IM DECREASED GLUCOSE; Start 02/06/19 at 14:30 Glucose (Glutose) 15 gm Q15M PRN BUCCAL DECREASED GLUCOSE; Start 02/06/19 at 14:30 Collagenase (Santyl) 1 applic DAILY TOP Last administered on 02/13/19at 09:13; Admin Dose 1 APPLIC; Start 02/06/19 at 18:30 Collagenase (Santyl) 1 applic PRN PRN TOP WHEN SOILED; Start 02/06/19 at 18:30 Mupirocin (Bactroban) 1 applic BID TOP Last administered on 02/13/19at 09:15; Ad min Dose 1 APPLIC; Start 02/07/19 at 10:00 Lisinopril (Zestril) 40 mg DAILY PO Last administered on 02/13/19 08:41; Admin Dose 40 MG; Start 02/08/19 at 09:00 Metformin HCl (Glucophage) 1,000 mg WITH BREAKFAST DINNE PO Last administered on 02/15/19 08:47; Admin Dose 1,000 MG; Start 02/07/19 at 18:00 Clotrimazole (Lotrimin Cr) 1 applic BID TOP Last administered on 02/13/19 09:14; Admin Dose 1 APPLIC; Start 02/07/19 at 11:30 Sodium Hypochlorite (Dakins Diluted ()) 1 applic DAILY TP Last administered on 02/13/19 09:14; Admin Dose 1 APPLIC; Start 02/09/19 at 09:00 Daptomycin 450 mg/ Sodium Chloride 100 ml @ 200 mls/hr Q24H IVPB Last administered on 02/14/19at 15:52; Admin Dose 200 MLS/HR; Start 02/10/19 at 16:00 Gentamicin Sulfate (Gentamicin Iv Per Pharmacy) GENTAMICIN PER PHARMACY NOTE XX ; Start 02/10/19 at 14:00 Nifedipine (Procardia Xl) 30 mg BID PO Last administered on 02/13/19 09:13; Admin Dose 30 MG; Start 02/11/19 at 15:00 Polyethylene Glycol (Miralax) 17 gm DAILY PO Last administered on 02/12/19at 12:40; Admin Dose 17 GM; Start 02/12/19 at 12:30 Famotidine (Pepcid) 20 mg DAILY PO ; Start 02/14/19 at 09:00 Metoprolol Tartrate (Lopressor) 100 mg BID PO Last administered on 02/14/19at 08:16; Admin Dose 100 MG; Start 02/13/19 at 21:00 Aspirin (Halfprin) 81 mg DAILY PO ; Start 02/14/19 at 09:00 Lactobacillus Acidophilus/ Rhamnosus (Culturelle) 1 cap BID PO Last admi nistered on 02/15/19 08:47; Admin Dose 1 CAP; Start 02/13/19 at 21:00 Enoxaparin Sodium (Lovenox) 40 mg DAILY SC Last administered on 02/14/19 08:19; Admin Dose 40 MG; Start 02/14/19 at 09:00 Nicotine (Nicoderm 14 Mg/ 24hr) 1 patch DAILY PRN TRANSDERM CONTROL WITHDRAWAL SYMPTOMS; Start 02/13/19 at 15:00 Gentamicin Sulfate 360 mg/ Sodium Chloride 109 ml @ 109 mls/hr Q36H IVPB Last administered on 02/14/19at 06:34; Admin Dose 109 MLS/HR; Start 02/14/19 at 06:00 CHICHO THOMAS Feb 15, 2019 15:43
[2019-02-15] MEDS: MUPIROCIN 2% 22 GM OINT TOP SCH ×2 (15:46→21:00)
[2019-02-15] MEDS: CLOTRIMAZOLE 1% 30 GM CR TOP SCH ×2 (15:47→21:00)
[2019-02-15] MEDS: DAKINS 0.0125%(1/40) 473 ML SOLUTION TP SCH (15:47)
[2019-02-15] MEDS: DAPTOMYCIN 450 MG in SOD CHLORIDE 0.9% 100 ML IVPB SCH (15:53)
[2019-02-15] MEDS: GENTAMICIN 360 MG in SOD CHLORIDE 0.9% 100 ML IVPB SCH (17:15)
--- NOTE | 2019-02-15 20:00 | PN ---
Date/Time of Note Date/Time of Note DATE: 02/15/19 TIME: 19:58 Assessment/Plan Lines/Catheters IV Catheter Type (from Nrs): Peripheral IV Chanel in Place (from Nrs): Yes Assessment/Plan Chief Complaint/Hosp Course 1. Multiple wounds s/p debridement of bilat buttock 02/07/19 -further debridement prn -Continue local care> w dakins -frequent turning and off-loading -low air loss mattress -vitamin c -short term zinc -optimize nutrition -bilateral LE wounds: per podiatry 2. Osteomyelitis BLE; currently on iv abx -abx per ID> discharge placement pending 3. Hypertension -nutrition and medication management 4. Diabetes: hga1c: 6.5 -nutrition and medication management 5. Diabetic neuropathy -safety precs (ensure no lines/tubes, etc on skin) -diabetes optimization 6. Hypochromic anemia -monitor and tx as needed 7. Depression -psych optimization 8. 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 No fevers, chills, sob, congested cough, cp, palpitations, koch, dizziness, nausea, vomiting, diarrhea, dysuria, bilat buttock wound drainage. Exam/Review of Systems Vital Signs Vitals Vital Signs Date Temp Pulse Resp B/P (MAP) Pulse Ox O2 O2 Flow FiO2 Time Delivery Rate 02/15/19 98.1 89 18 183/79 98 Room Air 14:00 (113) Intake and Output 02/14/19 02/14/19 02/15/19 1515:00 23:00 07:00 IntakeIntake Total 1009 ml 400 ml OutputOutput Total 800 ml 900 ml BalanceBalance 209 ml 400 ml -900 ml Exam Free Text/Dictation Constitutional: alert, oriented, well developed Psych: nl mood/affect, labile Head: normocephalic, atraumatic Eyes: nl conjunctiva, EOMI, nl lids, nl sclera ENMT: nl external ears & nose, nl lips & teeth, mucosa pink and moist Neck: supple, non-tender; No jvd Respiratory: normal air movement; No congested cough Cardiovascular: regular rate and rhythm, nl pulses; No edema Gastrointestinal: soft, non-tender Genitourinary - Male: nl penis, nl scrotum Musculoskeletal: nl extremities to inspection, other (contracted BLE) Extremities: normal pulses; No pitting pedal edema Neurological: nl mental status, nl speech, nl strength Skin: other (multiple wounds: bilat buttock: clean, no periwound erythema, scant drainage); BLE: wounds: dry No rash or lesions Lymph: No nl lymph nodes Results Result Diagram: 02/13/19 1540 02/13/19 1540 MARIE GOODRICH MD Feb 15, 2019 19:59
[2019-02-15 20:22] VITALS: BP 189/90; PULSE 88; RESP 20
[2019-02-16] MEDS: ACCU-CHEK XX SCH (02:00)
[2019-02-16 02:25] VITALS: BP 172/78; PULSE 87; RESP 17
[2019-02-16] MEDS: INSULIN ASPART [NOVOLOG] 3 ML PEN SC SCH ×4 (08:00→21:00)
[2019-02-16] MEDS: INSULIN GLARGINE [LANTus] (100 UNITS/ML) SYG SC SCH (08:00)
--- NOTE | 2019-02-16 08:58 | PN ---
Date/Time of Note Date/Time of Note DATE: 02/16/19 TIME: 08:57 Assessment/Plan VTE Prophylaxis Risk score (from Ns)>0 risk: 4 SCD applied (from [facility] [place] No SCD contraindicated: patient refusal Pharmacological prophylaxis: LMWH Pharm contraindication: patient refusal Lines/Catheters IV Catheter Type (from [facility]): Peripheral IV Urinary Cath still in place: Yes Reason Cath still needed: urinary retention Assessment/Plan Hospital Course SUBJECTIVE: Patient refusing most of his medications. OBJECTIVE: Physical Exam General: Adequately build 63 year-old male lying in bed in no apparent distress. HEENT: Normocephalic, atraumatic. Eyes: Anicteric sclerae, conjunctivae clear. ENT: Nasal septum midline, oral mucosa moist. Neck supple. Respiratory: Bilaterally diminished. Breath sounds. No use of accessory muscles of respiration. No adventitious breath sounds. Cardiovascular: S1, S2 heard. No murmurs or gallops. Abdomen: Soft, nontender, and nondistended. Bowel sounds positive in all 4 quadrants. Genitourinary: Deferred. Extremities: Bilateral lower extremity contracted with bilateral foot wounds Neurologic: The patient is awake, alert, and oriented. Labs & Vitals per chart ASSESSMENT & PLAN 63-year-old male who is wheelchair-bound, past medical history of hypertension, sacral decubitus ulcers, diabetes, osteomyelitis, smoking history, homelessness, anemia, and neurogenic bladder, who presented with worsening diabetic foot ulcers on his bilateral feet. 1. Osteomyelitis of the left fifth metatarsal (01/20/2019). Incompletely treated with IV antibiotics as per recommendations because of noncompliance. Daptomycin/gentamicin until 02/23/2019, then changed to IV Vanco plus Rocephin 03/22/2019 to complete the course of antibiotics. ID following. 2. Chronic bilateral lower extremity ulcers. Continue local wound care. Status post podiatry evaluation. 3. Multiple bilateral gluteal wounds. Continue antimicrobials as per ID. Status post debridement on 02/07/2019. Cultures showing polymicrobial's including MRSA and VRE. 4. Hypertension. Continue antihypertensives. 5. Diabetes mellitus. Hemoglobin A1c 6.5. Continue metformin. Refusing insulin. 6. Peripheral neuropathy. Continue gabapentin. 7. Normocytic anemia. Probably anemia of chronic disease. 8. Nicotine use. Cessation advised. 9. Debility with contractures. Wheelchair-bound. Physical therapy. 10. 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 11. Chronic neurogenic bladder. Chanel cath in place. 12. Noncompliance with medications and medical management. Counseling. 13. Fluids, electrolytes, and nutrition. Carbohydrate controlled diet. 14. DVT prophylaxis. Subcutaneous Lovenox (patient refusing). 15. Plan. Continue antimicrobials as per ID. Continue local wound care. Await clinical improvement/placement to a nursing facility. The patient was seen in collaboration with Dr. Banks. Result Diagram: 02/13/19 1540 02/16/19 0611 Results 24hrs Laboratory Tests Test 02/15/19 12:48 02/15/19 17:13 02/15/19 20:26 02/16/19 06:11 Bedside Glucose 107 143 139 Sodium Level 140 Potassium Level 4.2 Chloride Level 108 Carbon Dioxide Level 24 Anion Gap 8 Blood Urea Nitrogen 21 H Creatinine 0.97 Est Glomerular > 60 Filtrat Rate mL/min Glucose Level 107 Calcium Level 8.5 Exam/Review of Systems Exam Vitals Vital Signs Date Temp Pulse Resp B/P (MAP) Pulse Ox O2 O2 Flow FiO2 Time Delivery Rate 02/16/19 98.5 87 17 172/78 95 Room Air 02:25 (109) Intake and Output 02/15/19 02/15/19 02/16/19 1515:00 23:00 07:00 IntakeIntake Total 300 ml 300 ml 400 ml OutputOutput Total 350 ml 1300 ml BalanceBalance 300 ml -50 ml -900 ml Results Results 24hrs Laboratory Tests Test 02/15/19 12:48 02/15/19 17:13 02/15/19 20:26 02/16/19 06:11 Bedside Glucose 107 143 139 Sodium Level 140 Potassium Level 4.2 Chloride Level 108 Carbon Dioxide Level 24 Anion Gap 8 Blood Urea Nitrogen 21 H Creatinine 0.97 Est Glomerular > 60 Filtrat Rate mL/min Glucose Level 107 Calcium Level 8.5 Medications Medication Current Medications IV Flush (NS 3 ml) 3 ml PER PROTOCOL IV Last administered on 02/14/19at 08:13; Admin Dose 3 ML; Start 02/06/19 at 05:30 Ondansetron HCl (Zofran Inj) 4 mg Q6H PRN IV NAUSEA/VOMITING; Start 02/06/19 at 05:30 Acetaminophen (Tylenol Tab) 650 mg Q6H PRN PO .PAIN 1-3 OR TEMP Last administered on 02/06/19 21:57; Admin Dose 650 MG; Start 02/06/19 at 05:30 Acetaminophen/ Hydrocodone Bitart ([place] (5/325)) 1 tab Q6H PRN PO .MOD PAIN 4- 6 Last administered on 02/12/19 18:20; Admin Dose 1 TAB; Start 02/06/19 at 05:30 Morphine Sulfate (morphine) 2 mg Q4H PRN IV .SEVERE PAIN 7-10; Start 02/06/19 at 05:30 Docusate Sodium (Colace) 100 mg Q12H PRN PO .CONSTIPATION; Start 02/06/19 at 05:30 Magnesium Hydroxide (Milk Of Mag) 30 ml DAILY PRN PO .CONSTIPATION Last administered on 02/09/19 13:58; Admin Dose 30 ML; Start 02/06/19 at 05:30 Lorazepam (Ativan) 0.5 mg Q6H PRN IV ANXIETY; Start 02/06/19 at 05:30 Albuterol/ Ipratropium (Duoneb) 3 ml Q4H RESP THERAPY PRN HHN SHORTNESS OF BREATH; Start 02/06/19 at 05:30 Hydralazine HCl (Apresoline) 10 mg Q6H PRN IV ELEVATED BLOOD PRESSURE Last administered on 02/15/19 21:36; Admin Dose 10 MG; Start 02/06/19 at 05:30 Clonidine (Catapres) 0.1 mg Q6H PRN PO ELEVATED SYSTOLIC BP Last administered on 02/09/19 15:16; Admin Dose 0.1 MG; Start 02/06/19 at 05:30 Nitroglycerin (Nitroglycerin (Sl Tab) 0.4 Mg) 1 tab Q5M PRN SL ANGINA; Start 02/06/19 at 05:30 Ascorbic Acid (Vitamin C) 500 mg DAILY PO Last administered on 02/10/19 08:25; Admin Dose 500 MG; Start 02/06/19 at 09:00 Gabapentin (Neurontin) 100 mg TID PO Last administered on 02/15/19 20:26; Admin Dose 100 MG; Start 02/06/19 at 09:00 Multivitamins Therapeutic (Theragran) 1 tab DAILY PO Last administered on 6/10/19at 08:25; Admin Dose 1 TAB; Start 02/06/19 at 09:00 Miscellaneous Information Patients own medicat... BID@10, XX ; Start 02/06/19 at 16:00 Diagnostic Test (Pha) (Accu-Chek) 1 ea 02 XX ; Start 02/07/19 at 02:00 Insulin Glargine (Lantus) 20 units DAILY@0800 SC ; Start 02/06/19 at 15:30 Insulin Aspart (Novolog Insulin Pen) NOVOLOG *MILD* ALGORITHM WITH MEALS BEDTIME SC ; Start 02/06/19 at 18:00 Miscellaneous Information 1 ea NOTE XX ; Start 02/06/19 at 14:30 Glucose (Glutose) 15 gm Q15M PRN PO DECREASED GLUCOSE; Start 02/06/19 at 14:30 Glucose (Glutose) 22.5 gm Q15M PRN PO DECREASED GLUCOSE; Start 02/06/19 at 14:30 Dextrose (D50w Syringe) 25 ml Q15M PRN IV DECREASED GLUCOSE; Start 02/06/19 at 14:30 Dextrose (D50w Syringe) 50 ml Q15M PRN IV DECREASED GLUCOSE; Start 02/06/19 at 14:30 Glucagon (Glucagen) 1 mg Q15M PRN IM DECREASED GLUCOSE; Start 02/06/19 at 14:30 Glucose (Glutose) 15 gm Q15M PRN BUCCAL DECREASED GLUCOSE; Start 02/06/19 at 14:30 Collagenase (Santyl) 1 applic DAILY TOP Last administered on 02/13/19at 09:13; Admin Dose 1 APPLIC; Start 02/06/19 at 18:30 Collagenase (Santyl) 1 applic PRN PRN TOP WHEN SOILED; Start 02/06/19 at 18:30 Mupirocin (Bactroban) 1 applic BID TOP Last administered on 02/15/19at 15:46; Admin Dose 1 APPLIC; Start 02/07/19 at 10:00 Lisinopril (Zestril) 40 mg DAILY PO Last administered on 02/13/19at 08:41; Admin Dose 40 MG; Start 02/08/19 at 09:00 Metformin HCl (Glucophage) 1,000 mg WITH BREAKFAST DINNE PO Last administered on 02/15/19at 17:15; Admin Dose 1,000 MG; Start 02/07/19 at 18:00 Clotrimazole (Lotrimin Cr) 1 applic BID TOP Last administered on 02/15/19at 15:47; Admin Dose 1 APPLIC; Start 02/07/19 at 11:30 Sodium Hypochlorite (Dakins Diluted ()) 1 applic DAILY TP Last administered on 02/15/19 15:47; Admin Dose 1 APPLIC; Start 02/09/19 at 09:00 Daptomycin 450 mg/ Sodium Chloride 100 ml @ 200 mls/hr Q24H IVPB Last administered on 02/15/19 15:53; Admin Dose 200 MLS/HR; Start 02/10/19 at 16:00 Gentamicin Sulfate (Gentamicin Iv Per Pharmacy) GENTAMICIN PER PHARMACY NOTE XX ; Start 02/10/19 at 14:00 Nifedipine (Procardia Xl) 30 mg BID PO Last administered on 02/13/19 09:13; Admin Dose 30 MG; Start 02/11/19 at 15:00 Polyethylene Glycol (Miralax) 17 gm DAILY PO Last administered on 02/12/19 12:40; Admin Dose 17 GM; Start 02/12/19 at 12:30 Famotidine (Pepcid) 20 mg DAILY PO ; Start 02/14/19 at 09:00 Metoprolol Tartrate (Lopressor) 100 mg BID PO Last administered on 02/14/19 08 :16; Admin Dose 100 MG; Start 02/13/19 at 21:00 Aspirin (Halfprin) 81 mg DAILY PO ; Start 02/14/19 at 09:00 Lactobacillus Acidophilus/ Rhamnosus (Culturelle) 1 cap BID PO Last administered on 02/15/19at 20:26; Admin Dose 1 CAP; Start 02/13/19 at 21:00 Enoxaparin Sodium (Lovenox) 40 mg DAILY SC Last administered on 02/14/19 08:19; Admin Dose 40 MG; Start 02/14/19 at 09:00 Nicotine (Nicoderm 14 Mg/ 24hr) 1 patch DAILY PRN TRANSDERM CONTROL WITHDRAWAL SYMPTOMS; Start 02/13/19 at 15:00 Gentamicin Sulfate 360 mg/ Sodium Chloride 109 ml @ 109 mls/hr Q36H IVPB Last administered on 02/15/19 17:15; Admin Dose 109 MLS/HR; Start 02/14/19 at 06:00 EV HARO NP Feb 16, 2019 08:58
[2019-02-16] MEDS: METOPROLOL 100 MG TAB PO SCH ×2 (09:00→21:00)
[2019-02-16] MEDS: MULTIVITAMINS THERAPEUTIC TAB PO SCH (09:00)
[2019-02-16] MEDS: FAMOTIDINE 20 MG TAB PO SCH (09:00)
[2019-02-16] MEDS: ASCORBIC ACID 500 MG TAB PO SCH (09:00)
[2019-02-16] MEDS: ASPIRIN (EC) 81 MG TAB PO SCH (09:00)
[2019-02-16] MEDS: POLYETHYLENE GLYCOL 17 GM PACKET PO SCH (09:00)
[2019-02-16] MEDS: NIFEdipine (XL) 30 MG TAB PO SCH ×2 (09:00→21:00)
[2019-02-16] MEDS: ENOXAPARIN 40 MG/0.4 ML SYG SC SCH (09:00)
[2019-02-16] MEDS: COLLAGENASE 5 GM (UD JAR) TOP SCH (09:00)
[2019-02-16] MEDS: LISINOPRIL 20 MG TAB PO SCH (09:00)
[2019-02-16] MEDS: LACTOBACILLUS RHAMNOSUS CAP PO SCH ×2 (11:12→20:38)
[2019-02-16] MEDS: GABAPENTIN 100 MG CAP PO SCH ×3 (11:12→20:38)
[2019-02-16] MEDS: metFORMIN 500 MG TAB PO SCH ×2 (11:12→17:03)
[2019-02-16] MEDS: DAKINS 0.0125%(1/40) 473 ML SOLUTION TP SCH (11:12)
[2019-02-16] MEDS: MUPIROCIN 2% 22 GM OINT TOP SCH ×2 (11:12→21:00)
[2019-02-16] MEDS: CLOTRIMAZOLE 1% 30 GM CR TOP SCH ×2 (11:13→21:00)
--- NOTE | 2019-02-16 14:35 | CONS ---
Consultation Date/Type/Reason Admit Date/Time Feb 06, 2019 at 03:18 Initial Consult Date 02/07/19 Type of Consult SUBJECTIVE: Pt is awake, looks comfortable. No fevers. VS: stable T: 98.5 LABS: Reviewed. Left and right buttock wounds grew MRSA, Pseudomonas, Enterococcus, Corynebacterium group JK Blood culture on admission grew staph species 1 out of 2 sets Antimicrobials: Gent, Daptomycin ALLERGIES: HE IS NOT ALLERGIC TO ANY ANTIBIOTICS. PHYSICAL EXAMINATION: GENERAL: Well-developed elderly -[place] man who is in no distress. HEENT: Head is atraumatic, normocephalic. Sclerae are anicteric. Buccal mucos a is dry. NECK: Supple. CHEST: Rise symmetrical. Breath sounds diminished to bases. HEART: S1, S2. ABDOMEN: Soft. Bowel tones are present. EXTREMITIES: With bilateral lower extremities dressing intact. Assessment: 1. Bilateral lower extremities diabetic ulcerations 2. Left foot osteomyelitis 3. Diabetes with diabetic neuropathy 4. Bilateral buttocks ulcerations, status post debridement 5. Coag negative staph bacteremia consistent with contaminant 6. Noncompliance Plan: Pt is stable. Continue Daptomycin and Gentamicin to complete 2 weeks==> last dose February 23, then change to IV Vanco and IV Rocephin till March 22 to complete course for OM. Continue wound care per podiatry and surgical teams Requesting Provider: MASOUD SOLANO DPM Date/Time of Note DATE: 02/16/19 TIME: 14:34 Exam/Review of Systems Exam Vitals Vital Signs Date Temp Pulse Resp B/P (MAP) Pulse Ox O2 O2 Flow FiO2 Time Delivery Rate 02/16/19 98.5 87 17 172/78 95 Room Air 02:25 (109) Intake and Output 02/15/19 02/15/19 02/16/19 1515:00 23:00 07:00 IntakeIntake Total 300 ml 509 ml 400 ml OutputOutput Total 350 ml 1300 ml BalanceBalance 300 ml 159 ml -900 ml Results Result Diagram: 02/13/19 1540 02/16/19 0611 Results 24hrs Laboratory Tests Test 02/15/19 17:13 02/15/19 20:26 02/16/19 06:11 Bedside Glucose 143 139 Sodium Level 140 Potassium Level 4.2 Chloride Level 108 Carbon Dioxide Level 24 Anion Gap 8 Blood Urea Nitrogen 21 H Creatinine 0.97 Est Glomerular Filtrat Rate mL/min > 60 Glucose Level 107 Calcium Level 8.5 Medications Medication Current Medications IV Flush (NS 3 ml) 3 ml PER PROTOCOL IV Last administered on 02/14/19 08:13; Admin Dose 3 ML; Start 02/06/19 at 05:30 Ondansetron HCl (Zofran Inj) 4 mg Q6H PRN IV NAUSEA/VOMITING; Start 02/06/19 at 05:30 Acetaminophen (Tylenol Tab) 650 mg Q6H PRN PO .PAIN 1-3 OR TEMP Last administered on 02/06/19 21:57; Admin Dose 650 MG; Start 02/06/19 at 05:30 Acetaminophen/ Hydrocodone Bitart ([place] (5/325)) 1 tab Q6H PRN PO .MOD PAIN 4- 6 Last administered on 02/12/19 18:20; Admin Dose 1 TAB; Start 02/06/19 at 05:30 Morphine Sulfate (morphine) 2 mg Q4H PRN IV .SEVERE PAIN 7-10; Start 02/06/19 at 05:30 Docusate Sodium (Colace) 100 mg Q12H PRN PO .CONSTIPATION; Start 02/06/19 at 05:30 Magnesium Hydroxide (Milk Of Mag) 30 ml DAILY PRN PO .CONSTIPATION Last administered on 02/09/19 13:58; Admin Dose 30 ML; Start 02/06/19 at 05:30 Lorazepam (Ativan) 0.5 mg Q6H PRN IV ANXIETY; Start 02/06/19 at 05:30 Albuterol/ Ipratropium (Duoneb) 3 ml Q4H RESP THERAPY PRN HHN SHORTNESS OF BREATH; Start 02/06/19 at 05:30 Hydralazine HCl (Apresoline) 10 mg Q6H PRN IV ELEVATED BLOOD PRESSURE Last administered on 02/15/19 21:36; Admin Dose 10 MG; Start 02/06/19 at 05:30 Clonidine (Catapres) 0.1 mg Q6H PRN PO ELEVATED SYSTOLIC BP Last administered on 02/09/19 15:16; Admin Dose 0.1 MG; Start 02/06/19 at 05:30 Nitroglycerin (Nitroglycerin (Sl Tab) 0.4 Mg) 1 tab Q5M PRN SL ANGINA; Start 02/06/19 at 05:30 Ascorbic Acid (Vitamin C) 500 mg DAILY PO Last administered on 02/10/19at 08:25; Admin Dose 500 MG; Start 02/06/19 at 09:00 Gabapentin (Neurontin) 100 mg TID PO Last administered on 02/16/19at 11:12; Admin Dose 100 MG; Start 02/06/19 at 09:00 Multivitamins Therapeutic (Theragran) 1 tab DAILY PO Last administered on 02/10at 08:25; Admin Dose 1 TAB; Start 02/06/19 at 09:00 Miscellaneous Information Patients own medicat... BID@10,16 XX ; Start 02/06/19 at 16:00 Diagnostic Test (Pha) (Accu-Chek) 1 ea 02 XX ; Start 02/07/19 at 02:00 Insulin Glargine (Lantus) 20 units DAILY@0800 SC ; Start 02/06/19 at 15:30 Insulin Aspart (Novolog Insulin Pen) NOVOLOG *MILD* ALGORITHM WITH MEALS BEDTIME SC ; Start 02/06/19 at 18:00 Miscellaneous Information 1 ea NOTE XX ; Start 02/06/19 at 14:30 Glucose (Glutose) 15 gm Q15M PRN PO DECREASED GLUCOSE; Start 02/06/19 at 14:30 Glucose (Glutose) 22.5 gm Q15M PRN PO DECREASED GLUCOSE; Start 02/06/19 at 14:30 Dextrose (D50w Syringe) 25 ml Q15M PRN IV DECREASED GLUCOSE; Start 02/06/19 at 1 4:30 Dextrose (D50w Syringe) 50 ml Q15M PRN IV DECREASED GLUCOSE; Start 02/06/19 at 14:30 Glucagon (Glucagen) 1 mg Q15M PRN IM DECREASED GLUCOSE; Start 02/06/19 at 14:30 Glucose (Glutose) 15 gm Q15M PRN BUCCAL DECREASED GLUCOSE; Start 02/06/19 at 14:30 Collagenase (Santyl) 1 applic DAILY TOP Last administered on 02/13/19at 09:13; Admin Dose 1 APPLIC; Start 02/06/19 at 18:30 Collagenase (Santyl) 1 applic PRN PRN TOP WHEN SOILED; Start 02/06/19 at 18:30 Mupirocin (Bactroban) 1 applic BID TOP Last administered on 02/16/19 11:12; Admin Dose 1 APPLIC; Start 02/07/19 at 10:00 Lisinopril (Zestril) 40 mg DAILY PO Last administered on 02/13/19 08:41; Admin Dose 40 MG; Start 02/08/19 at 09:00 Metformin HCl (Glucophage) 1,000 mg WITH BREAKFAST DINNE PO Last administered on 02/16/19 11:12; Admin Dose 1,000 MG; Start 02/07/19 at 18:00 Clotrimazole (Lotrimin Cr) 1 applic BID TOP Last administered on 02/16/19 11:13; Admin Dose 1 APPLIC; Start 02/07/19 at 11:30 Sodium Hypochlorite (Dakins Diluted ()) 1 applic DAILY TP Last administered on 02/16/19 11:12; Admin Dose 1 APPLIC; Start 02/09/19 at 09:00 Daptomycin 450 mg/ Sodium Chloride 100 ml @ 200 mls/hr Q24H IVPB Last administered on 02/15/19at 15:53; Admin Dose 200 MLS/HR; Start 02/10/19 at 16:00 Gentamicin Sulfate (Gentamicin Iv Per Pharmacy) GENTAMICIN PER PHARMACY NOTE XX ; Start 02/10/19 at 14:00 Nifedipine (Procardia Xl) 30 mg BID PO Last administered on 02/13/19 09:13; Admin Dose 30 MG; Start 02/11/19 at 15:00 Polyethylene Glycol (Miralax) 17 gm DAILY PO Last administered on 02/12/19at 12:40; Admin Dose 17 GM; Start 02/12/19 at 12:30 Famotidine (Pepcid) 20 mg DAILY PO ; Start 02/14/19 at 09:00 Metoprolol Tartrate (Lopressor) 100 mg BID PO Last administered on 02/14/19 08:16; Admin Dose 100 MG; Start 02/13/19 at 21:00 Aspirin (Halfprin) 81 mg DAILY PO ; Start 02/14/19 at 09:00 Lactobacillus Acidophilus/ Rhamnosus (Culturelle) 1 cap BID PO Last administered on 02/16/19at 11:12; Admin Dose 1 CAP; Start 02/13/19 at 21:00 Enoxaparin Sodium (Lovenox) 40 mg DAILY SC Last administered on 02/14/19at 08:19; Admin Dose 40 MG; Start 02/14/19 at 09:00 Nicotine (Nicoderm 14 Mg/ 24hr) 1 patch DAILY PRN TRANSDERM CONTROL WITHDRAWAL SYMPTOMS; Start 02/13/19 at 15:00 Gentamicin Sulfate 360 mg/ Sodium Chloride 109 ml @ 109 mls/hr Q36H IVPB Last administered on 02/15/19at 17:15; Admin Dose 109 MLS/HR; Start 02/14/19 at 06:00 CHICHO THOMAS Feb 16, 2019 14:35
[2019-02-16 14:42] VITALS: BP 204/95; PULSE 83; RESP 20
[2019-02-16] MEDS: hydrALAzine 20 MG INJ IV PRN ×2 (14:55→20:43)
--- NOTE | 2019-02-16 15:13 | PN ---
Date/Time of Note Date/Time of Note DATE: 02/16/19 TIME: 15:09 Assessment/Plan Lines/Catheters IV Catheter Type (from Nrs): Peripheral IV Chanel in Place (from Nrs): Yes Assessment/Plan Chief Complaint/Hosp Course 1. Multiple wounds s/p debridement of bilat buttock 02/07/19 -further debridement prn -Continue local care> w dakins -frequent turning and off-loading -low air loss mattress -vitamin c -short term zinc -optimize nutrition -bilateral LE wounds: per podiatry 2. Osteomyelitis BLE; currently on iv abx -abx per ID> discharge placement pending 3. Hypertension -nutrition and medication management 4. Diabetes: hga1c: 6.5 -nutrition and medication management 5. Diabetic neuropathy -safety precs (ensure no lines/tubes, etc on skin) -diabetes optimization 6. Hypochromic anemia -monitor and tx as needed 7. Depression -psych optimization 8. Hypocalcemia: likely multifactorial -nutrition optimization -treat infections 9. 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 No fevers, chills, sob, congested cough, cp, palpitations, koch, dizziness, nausea, vomiting, diarrhea, dysuria, bilat buttock wound drainage. Exam/Review of Systems Vital Signs Vitals Vital Signs Date Temp Pulse Resp B/P (MAP) Pulse Ox O2 O2 Flow FiO2 Time Delivery Rate 02/16/19 98.2 83 20 204/95 96 Room Air 14:42 (131) Intake and Output 02/15/19 02/15/19 02/16/19 1515:00 23:00 07:00 IntakeIntake Total 300 ml 509 ml 400 ml OutputOutput Total 350 ml 1300 ml BalanceBalance 300 ml 159 ml -900 ml Exam Free Text/Dictation Constitutional: alert, oriented, well developed Psych: nl mood/affect, labile Head: normocephalic, atraumatic Eyes: nl conjunctiva, EOMI, nl lids, nl sclera ENMT: nl external ears & nose, nl lips & teeth, mucosa pink and moist Neck: supple, non-tender; No jvd Respiratory: normal air movement; No congested cough Cardiovascular: regular rate and rhythm, nl pulses; No edema Gastrointestinal: soft, non-tender Genitourinary - Male: nl penis, nl scrotum Musculoskeletal: nl extremities to inspection, other (contracted BLE) Extremities: normal pulses; No pitting pedal edema Neurological: nl mental status, nl speech, nl strength Skin: other (multiple wounds: bilat buttock: clean, no periwound erythema, scant drainage); BLE: wounds: dry No rash or lesions Lymph: No nl lymph nodes Results Result Diagram: 02/13/19 1540 02/16/19 0611 MARIE GOODRICH MD Feb 16, 2019 15:13
[2019-02-16 15:20] VITALS: BP 181/85; PULSE 89; RESP 20
[2019-02-16] MEDS: DAPTOMYCIN 450 MG in SOD CHLORIDE 0.9% 100 ML IVPB SCH (21:47)
[2019-02-17] MEDS: ACCU-CHEK XX SCH (02:00)
[2019-02-17] MEDS: GENTAMICIN 360 MG in SOD CHLORIDE 0.9% 100 ML IVPB SCH (05:36)
[2019-02-17 08:00] VITALS: BP 180/91; PULSE 83; RESP 18
[2019-02-17] MEDS: INSULIN ASPART [NOVOLOG] 3 ML PEN SC SCH ×4 (08:00→20:46)
[2019-02-17] MEDS: INSULIN GLARGINE [LANTus] (100 UNITS/ML) SYG SC SCH (08:00)
[2019-02-17] MEDS: METOPROLOL 100 MG TAB PO SCH ×2 (08:50→20:34)
[2019-02-17] MEDS: ASPIRIN (EC) 81 MG TAB PO SCH (08:50)
[2019-02-17] MEDS: metFORMIN 500 MG TAB PO SCH ×2 (08:50→17:52)
[2019-02-17] MEDS: LACTOBACILLUS RHAMNOSUS CAP PO SCH ×2 (08:50→20:34)
[2019-02-17] MEDS: GABAPENTIN 100 MG CAP PO SCH ×3 (08:50→20:33)
[2019-02-17] MEDS: NIFEdipine (XL) 30 MG TAB PO SCH ×2 (08:51→20:34)
[2019-02-17] MEDS: FAMOTIDINE 20 MG TAB PO SCH (08:51)
[2019-02-17] MEDS: MULTIVITAMINS THERAPEUTIC TAB PO SCH (08:51)
[2019-02-17] MEDS: POLYETHYLENE GLYCOL 17 GM PACKET PO SCH (08:51)
[2019-02-17] MEDS: ASCORBIC ACID 500 MG TAB PO SCH (08:51)
[2019-02-17] MEDS: LISINOPRIL 20 MG TAB PO SCH (08:51)
[2019-02-17] MEDS: ENOXAPARIN 40 MG/0.4 ML SYG SC SCH (08:52)
[2019-02-17] MEDS: CLOTRIMAZOLE 1% 30 GM CR TOP SCH ×2 (08:53→20:35)
[2019-02-17] MEDS: DAKINS 0.0125%(1/40) 473 ML SOLUTION TP SCH (08:53)
[2019-02-17] MEDS: MUPIROCIN 2% 22 GM OINT TOP SCH ×2 (08:54→20:35)
[2019-02-17] MEDS: COLLAGENASE 5 GM (UD JAR) TOP SCH (08:54)
[2019-02-17] MEDS: hydrALAzine 20 MG INJ IV PRN ×2 (09:30→20:33)
--- NOTE | 2019-02-17 11:26 | PN ---
Date/Time of Note Date/Time of Note DATE: 02/17/19 TIME: 11:25 Assessment/Plan Lines/Catheters IV Catheter Type (from Nrs): Peripheral IV Chanel in Place (from Nrs): Yes Assessment/Plan Chief Complaint/Hosp Course 1. Multiple wounds s/p debridement of bilat buttock 02/07/19 -further debridement prn -Continue local care> w dakins -frequent turning and off-loading -low air loss mattress -vitamin c -short term zinc -optimize nutrition -bilateral LE wounds: per podiatry 2. Osteomyelitis BLE s/p iv abx per ID -placement pending 3. Hypertension -nutrition and medication management 4. Diabetes: hga1c: 6.5 -nutrition and medication management 5. Diabetic neuropathy -safety precs (ensure no lines/tubes, etc on skin) -diabetes optimization 6. Hypochromic anemia -monitor and tx as needed 7. Depression -psych optimization 8. Hypocalcemia: likely multifactorial -nutrition optimization -treat infections 9. 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 Intermittent medication refusal. No fevers, chills, sob, congested cough, cp, palpitations, koch, dizziness, nausea, vomiting, diarrhea, dysuria, bilat buttock wound drainage. Exam/Review of Systems Vital Signs Vitals Vital Signs Date Temp Pulse Resp B/P (MAP) Pulse Ox O2 O2 Flow FiO2 Time Delivery Rate 02/17/19 98.3 83 18 180/91 98 08:00 (120) 02/16/19 Room Air 15:20 Intake and Output 02/16/19 02/16/19 02/17/19 1515:00 23:00 07:00 IntakeIntake Total 580 ml 109 ml OutputOutput Total 1000 ml BalanceBalance -420 ml 109 ml Exam Free Text/Dictation Constitutional: alert, oriented, well developed Psych: nl mood/affect, labile Head: normocephalic, atraumatic Eyes: nl conjunctiva, EOMI, nl lids, nl sclera ENMT: nl external ears & nose, nl lips & teeth, mucosa pink and moist Neck: supple, non-tender; No jvd Respiratory: normal air movement; No congested cough Cardiovascular: regular rate and rhythm, nl pulses; No edema Gastrointestinal: soft, non-tender Genitourinary - Male: nl penis, nl scrotum Musculoskeletal: nl extremities to inspection, other (contracted BLE) Extremities: normal pulses; No pitting pedal edema Neurological: nl mental status, nl speech, nl strength Skin: other (multiple wounds: bilat buttock: clean, no periwound erythema, scant drainage); BLE: wounds: dry No rash or lesions Lymph: No nl lymph nodes Results Result Diagram: 02/13/19 1540 02/16/19 0611 MARIE GOODRICH MD Feb 17, 2019 11:26
[2019-02-17 14:00] VITALS: BP 162/76; PULSE 87; RESP 16
--- NOTE | 2019-02-17 15:11 | PN ---
Date/Time of Note Date/Time of Note DATE: 02/17/19 TIME: 15:03 Assessment/Plan VTE Prophylaxis Risk score (from Nsg)>0 risk: 4 SCD applied (from Ns): No SCD contraindicated: other Pharmacological prophylaxis: LMWH Lines/Catheters IV Catheter Type (from Nrsg): Peripheral IV Urinary Cath still in place: Yes Reason Cath still needed: other (indicate) (monitor I&O) Assessment/Plan Hospital Course 1. Osteomyelitis of the left fifth metatarsal (01/20/2019). - Incompletely treated with IV abx due to noncompliance. - Daptomycin/gentamicin until 02/23/2019, then changed to IV Vanco plus Rocephin 03/22/2019 to complete the course of antibiotics. - continue with ID recommendations 2. Chronic bilateral lower extremity ulcers. - continue wound care 3. Multiple bilateral gluteal wounds. - Continue abx per ID. - Status post debridement on 02/07/2019. 4. Hypertension. - Continue antihypertensives. 5. Diabetes mellitus. - Hemoglobin A1c 6.5. - Continue metformin. - refusing insulin 6. Peripheral neuropathy. - Continue gabapentin. 7. Nicotine use. - Cessation was advised. 9. Debility with contractures. - Wheelchair-bound. - continue Physical therapy. 10. 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 11. Chronic neurogenic bladder. - Chanel cath in place. 12. Noncompliance with medications and medical management. - Compliance was advised Disposition and plan. Awaiting outpatient set up with antibiotic treatment. Follow-up with case advocate. EVELYNE once set up Discussed plan of care with Dr. Oleary Result Diagram: 02/13/19 1540 02/16/19 0611 Results 24hrs Laboratory Tests Test 02/16/19 17:00 02/16/19 20:37 02/17/19 08:09 02/17/19 12:26 Bedside Glucose 112 103 87 136 Subjective 24 Hr Interval Summary Free Text/Dictation Resting in bed. Denies any pain at present. No other complaints at this time Exam/Review of Systems Exam Vitals Vital Signs Date Temp Pulse Resp B/P (MAP) Pulse Ox O2 O2 Flow FiO2 Time Delivery Rate 02/17/19 98.6 87 16 162/76 99 14:00 (104) 02/16/19 Room Air 15:20 Intake and Output 02/16/19 02/16/1919 1515:00 23:00 07:00 IntakeIntake Total 580 ml 109 ml OutputOutput Total 1000 ml BalanceBalance -420 ml 109 ml Constitutional: alert, oriented Psych: nl mood/affect Head: normocephalic Respiratory: normal air movement Cardiovascular: other (regular rate ) Gastrointestinal: soft, non-tender Extremities: other (contractures BLE with wounds. 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, nl mental status, nl speech Results Results 24hrs Laboratory Tests Test 02/16/19 17:00 02/16/19 20:37 02/17/19 08:09 02/17/19 12:26 Bedside Glucose 112 103 87 136 Medications Medication Current Medications IV Flush (NS 3 ml) 3 ml PER PROTOCOL IV Last administered on 02/14/19 08:13; Admin Dose 3 ML; Start 02/06/19 at 05:30 Ondansetron HCl (Zofran Inj) 4 mg Q6H PRN IV NAUSEA/VOMITING; Start 02/06/19 at 05:30 Acetaminophen (Tylenol Tab) 650 mg Q6H PRN PO .PAIN 1-3 OR TEMP Last adm inistered on 02/06/19at 21:57; Admin Dose 650 MG; Start 02/06/19 at 05:30 Acetaminophen/ Hydrocodone Bitart ([place] (5/325)) 1 tab Q6H PRN PO .MOD PAIN 4- 6 Last administered on 02/12/19at 18:20; Admin Dose 1 TAB; Start 02/06/19 at 05:30 Morphine Sulfate (morphine) 2 mg Q4H PRN IV .SEVERE PAIN 7-10; Start 02/06/19 at 05:30 Docusate Sodium (Colace) 100 mg Q12H PRN PO .CONSTIPATION; Start 02/06/19 at 05:30 Magnesium Hydroxide (Milk Of Mag) 30 ml DAILY PRN PO .CONSTIPATION Last administered on 02/09/19at 13:58; Admin Dose 30 ML; Start 02/06/19 at 05:30 Lorazepam (Ativan) 0.5 mg Q6H PRN IV ANXIETY; Start 02/06/19 at 05:30 Albuterol/ Ipratropium (Duoneb) 3 ml Q4H RESP THERAPY PRN HHN SHORTNESS OF BREATH; Start 02/06/19 at 05:30 Hydralazine HCl (Apresoline) 10 mg Q6H PRN IV ELEVATED BLOOD PRESSURE Last administered on 02/17/19at 09:30; Admin Dose 10 MG; Start 02/06/19 at 05:30 Clonidine (Catapres) 0.1 mg Q6H PRN PO ELEVATED SYSTOLIC BP Last administered on 02/09/19at 15:16; Admin Dose 0.1 MG; Start 02/06/19 at 05:30 Nitroglycerin (Nitroglycerin (Sl Tab) 0.4 Mg) 1 tab Q5M PRN SL ANGINA; Start 02/06/19 at 05:30 Ascorbic Acid (Vitamin C) 500 mg DAILY PO Last administered on 02/10/19at 08:25; Admin Dose 500 MG; Start 02/06/19 at 09:00 Gabapentin (Neurontin) 100 mg TID PO Last administered on 02/17/19at 12:24; Admin Dose 100 MG; Start 02/06/19 at 09:00 Multivitamins Therapeutic (Theragran) 1 tab DAILY PO Last administered on 02/10/19at 08:25; Admin Dose 1 TAB; Start 02/06/19 at 09:00 Miscellaneous Information Patients own medicat... BID@10,16 XX ; Start 02/06/19 at 16:00 Diagnostic Test (Pha) (Accu-Chek) 1 ea 02 XX ; Start 02/07/19 at 02:00 Insulin Glargine (Lantus) 20 units DAILY@0800 SC ; Start 02/06/19 at 15:30 Insulin Aspart (Novolog Insulin Pen) NOVOLOG *MILD* ALGORITHM WITH MEALS BEDTIME SC ; Start 02/06/19 at 18:00 Miscellaneous Information 1 ea NOTE XX ; Start 02/06/19 at 14:30 Glucose (Glutose) 15 gm Q15M PRN PO DECREASED GLUCOSE; Start 02/06/19 at 14:30 Glucose (Glutose) 22.5 gm Q15M PRN PO DECREASED GLUCOSE; Start 02/06/19 at 14:30 Dextrose (D50w Syringe) 25 ml Q15M PRN IV DECREASED GLUCOSE; Start 02/06/19 at 14:30 Dextrose (D50w Syringe) 50 ml Q15M PRN IV DECREASED GLUCOSE; Start 02/06/19 at 14:30 Glucagon (Glucagen) 1 mg Q15M PRN IM DECREASED GLUCOSE; Start 02/06/19 at 14:30 Glucose (Glutose) 15 gm Q15M PRN BUCCAL DECREASED GLUCOSE; Start 02/06/19 at 14:30 Collagenase (Santyl) 1 applic DAILY TOP Last administered on 02/17/19at 08:54; Admin Dose 1 APPLIC; Start 02/06/19 at 18:30 Collagenase (Santyl) 1 applic PRN PRN TOP WHEN SOILED; Start 02/06/19 at 18:30 Mupirocin (Bactroban) 1 applic BID TOP Last administered on 02/17/19 08:54; Admin Dose 1 APPLIC; Start 02/07/19 at 10:00 Lisinopril (Zestril) 40 mg DAILY PO Last administered on 02/13/19 08:41; Admin Dose 40 MG; Start 02/08/19 at 09:00 Metformin HCl (Glucophage) 1,000 mg WITH BREAKFAST DINNE PO Last administered on 02/17/19at 08:50; Admin Dose 1,000 MG; Start 02/07/19 at 18:00 Clotrimazole (Lotrimin Cr) 1 applic BID TOP Last administered on 02/17/19 08:53; Admin Dose 1 APPLIC; Start 02/07/19 at 11:30 Sodium Hypochlorite (Dakins Diluted ()) 1 applic DAILY TP Last administered on 02/17/19at 08:53; Admin Dose 1 APPLIC; Start 02/09/19 at 09:00 Daptomycin 450 mg/ Sodium Chloride 100 ml @ 200 mls/hr Q24H IVPB Last administered on 02/16/19at 21:47; Admin Dose 200 MLS/HR; Start 02/10/19 at 16:00 Gentamicin Sulfate (Gentamicin Iv Per Pharmacy) GENTAMICIN PER PHARMACY NOTE XX ; Start 02/10/19 at 14:00 Nifedipine (Procardia Xl) 30 mg BID PO Last administered on 02/13/19at 09:13; Admin Dose 30 MG; Start 02/11/19 at 15:00 Polyethylene Glycol (Miralax) 17 gm DAILY PO Last administered on 02/12/19at 12:40; Admin Dose 17 GM; Start 02/12/19 at 12:30 Famotidine (Pepcid) 20 mg DAILY PO ; Start 02/14/19 at 09:00 Metoprolol Tartrate (Lopressor) 100 mg BID PO Last administered on 02/14/19at 08:16; Admin Dose 100 MG; Start 02/13/19 at 21:00 Aspirin (Halfprin) 81 mg DAILY PO ; Start 02/14/19 at 09:00 Lactobacillus Acidophilus/ Rhamnosus (Culturelle) 1 cap BID PO Last administered on 02/16/19at 20:38; Admin Dose 1 CAP; Start 02/13/19 at 21:00 Enoxaparin Sodium (Lovenox) 40 mg DAILY SC Last administered on 02/14/19at 08:19; Admin Dose 40 MG; Start 02/14/19 at 09:00 Nicotine (Nicoderm 14 Mg/ 24hr) 1 patch DAILY PRN TRANSDERM CONTROL WITHDRAWAL SYMPTOMS; Start 02/13/19 at 15:00 Gentamicin Sulfate 360 mg/ Sodium Chloride 109 ml @ 109 mls/hr Q36H IVPB Last administered on 02/17/19at 05:36; Admin Dose 109 MLS/HR; Start 02/14/19 at 06:00 Miscellaneous Information (*Rx Drug Level Order Reminder*) GENT TROUGH @ 1,700 1700 ONCE XX ; Start 02/18/19 at 17:00; Stop 02/18/19 at 17:01 SONAL SCHROEDER NP Feb 17, 2019 15:11
--- NOTE | 2019-02-17 15:28 | CONS ---
Assessment/Plan Assessment/Plan Hospital Course (Demo Recall) No events Left and right buttock wounds grew MRSA, Pseudomonas, Enterococcus, Corynebacterium group JK Blood culture on admission grew staph species 1 out of 2 sets Antimicrobials: Gent, Daptomycin ALLERGIES: HE IS NOT ALLERGIC TO ANY ANTIBIOTICS. PHYSICAL EXAMINATION: GENERAL: Well-developed elderly -Burmese man who is in no distress. HEENT: Head is atraumatic, normocephalic. Sclerae are anicteric. Buccal mucosa is dry. NECK: Supple. CHEST: Rise symmetrical. Breath sounds diminished to bases. HEART: S1, S2. ABDOMEN: Soft. Bowel tones are present. EXTREMITIES: With bilateral lower extremities dressing intact. Assessment: 1. Bilateral lower extremities diabetic ulcerations 2. Left foot osteomyelitis 3. Diabetes with diabetic neuropathy 4. Bilateral buttocks ulcerations, status post debridement 5. Coag negative staph bacteremia consistent with contaminant 6. Noncompliance Plan: Stable, continue Daptomycin and Gentamicin to complete 2 weeks==> last dose February 23, then change to IV Vanco and IV Rocephin till March 22 to complete course for OM, continue wound care per podiatry and surgical teams Consultation Date/Type/Reason Admit Date/Time Feb 06, 2019 at 03:18 Initial Consult Date 02/07/19 Type of Consult id Requesting Provider: MASOUD SOLANO DPM Date/Time of Note DATE: 02/17/19 TIME: 15:28 Exam/Review of Systems Exam Vitals Vital Signs Date Temp Pulse Resp B/P (MAP) Pulse Ox O2 O2 Flow FiO2 Time Delivery Rate 02/17/19 98.6 87 16 162/76 99 14:00 (104) 02/16/19 Room Air 15:20 Intake and Output 02/16/19 02/16/19 02/17/19 1515:00 23:00 07:00 IntakeIntake Total 580 ml 109 ml OutputOutput Total 1000 ml BalanceBalance -420 ml 109 ml Results Result Diagram: 02/13/19 1540 02/16/19 0611 Results 24hrs Laboratory Tests Test 02/16/19 17:00 02/16/19 20:37 02/17/19 08:09 02/17/19 12:26 Bedside Glucose 112 103 87 136 Medications Medication Current Medications IV Flush (NS 3 ml) 3 ml PER PROTOCOL IV Last administered on 02/14/19 08:13; Admin Dose 3 ML; Start 02/06/19 at 05:30 Ondansetron HCl (Zofran Inj) 4 mg Q6H PRN IV NAUSEA/VOMITING; Start 02/06/19 at 05:30 Acetaminophen (Tylenol Tab) 650 mg Q6H PRN PO .PAIN 1-3 OR TEMP Last administered on 02/06/19 21:57; Admin Dose 650 MG; Start 02/06/19 at 05:30 Acetaminophen/ Hydrocodone Bitart ([place] (5/325)) 1 tab Q6H PRN PO .MOD PAIN 4- 6 Last administered on 02/12/19 18:20; Admin Dose 1 TAB; Start 02/06/19 at 05:30 Morphine Sulfate (morphine) 2 mg Q4H PRN IV .SEVERE PAIN 7-10; Start 02/06/19 at 05:30 Docusate Sodium (Colace) 100 mg Q12H PRN PO .CONSTIPATION; Start 02/06/19 at 05:30 Magnesium Hydroxide (Milk Of Mag) 30 ml DAILY PRN PO .CONSTIPATION Last administered on 02/09/19 13:58; Admin Dose 30 ML; Start 02/06/19 at 05:30 Lorazepam (Ativan) 0.5 mg Q6H PRN IV ANXIETY; Start 02/06/19 at 05:30 Albuterol/ Ipratropium (Duoneb) 3 ml Q4H RESP THERAPY PRN HHN SHORTNESS OF BREATH; Start 02/06/19 at 05:30 Hydralazine HCl (Apresoline) 10 mg Q6H PRN IV ELEVATED BLOOD PRESSURE Last administered on 02/17/19 09:30; Admin Dose 10 MG; Start 02/06/19 at 05:30 Clonidine (Catapres) 0.1 mg Q6H PRN PO ELEVATED SYSTOLIC BP Last administered on 02/09/19 15:16; Admin Dose 0.1 MG; Start 02/06/19 at 05:30 Nitroglycerin (Nitroglycerin (Sl Tab) 0.4 Mg) 1 tab Q5M PRN SL ANGINA; Start 02/06/19 at 05:30 Ascorbic Acid (Vitamin C) 500 mg DAILY PO Last administered on 02/10/19 08:25; Admin Dose 500 MG; Start 02/06/19 at 09:00 Gabapentin (Neurontin) 100 mg TID PO Last administered on 02/17/19at 12:24; Admin Dose 100 MG; Start 02/06/19 at 09:00 Multivitamins Therapeutic (Theragran) 1 tab DAILY PO Last administered on 02/10/19at 08:25; Admin Dose 1 TAB; Start 02/06/19 at 09:00 Miscellaneous Information Patients own medicat... BID@10,16 XX ; Start 02/06/19 at 16:00 Diagnostic Test (Pha) (Accu-Chek) 1 ea 02 XX ; Start 02/07/19 at 02:00 Insulin Glargine (Lantus) 20 units DAILY@0800 SC ; Start 02/06/19 at 15:30 Insulin Aspart (Novolog Insulin Pen) NOVOLOG *MILD* ALGORITHM WITH MEALS BEDTIME SC ; Start 02/06/19 at 18:00 Miscellaneous Information 1 ea NOTE XX ; Start 02/06/19 at 14:30 Glucose (Glutose) 15 gm Q15M PRN PO DECREASED GLUCOSE; Start 02/06/19 at 14:30 Glucose (Glutose) 22.5 gm Q15M PRN PO DECREASED GLUCOSE; Start 02/06/19 at 14:30 Dextrose (D50w Syringe) 25 ml Q15M PRN IV DECREASED GLUCOSE; Start 02/06/19 at 14:30 Dextrose (D50w Syringe) 50 ml Q15M PRN IV DECREASED GLUCOSE; Start 02/06/19 at 14:30 Glucagon (Glucagen) 1 mg Q15M PRN IM DECREASED GLUCOSE; Start 02/06/19 at 14:30 Glucose (Glutose) 15 gm Q15M PRN BUCCAL DECREASED GLUCOSE; Start 02/06/19 at 14:30 Collagenase (Santyl) 1 applic DAILY TOP Last administered on 02/17/19at 08:54; Admin Dose 1 APPLIC; Start 02/06/19 at 18:30 Collagenase (Santyl) 1 applic PRN PRN TOP WHEN SOILED; Start 02/06/19 at 18:30 Mupirocin (Bactroban) 1 applic BID TOP Last administered on 02/17/19at 08:54; Admin Dose 1 APPLIC; Start 02/07/19 at 10:00 Lisinopril (Zestril) 40 mg DAILY PO Last administered on 02/13/19 08:41; Admin Dose 40 MG; Start 02/08/19 at 09:00 Metformin HCl (Glucophage) 1,000 mg WITH BREAKFAST DINNE PO Last administered on 02/17/19 08:50; Admin Dose 1,000 MG; Start 02/07/19 at 18:00 Clotrimazole (Lotrimin Cr) 1 applic BID TOP Last administered on 02/17/19 08:53; Admin Dose 1 APPLIC; Start 02/07/19 at 11:30 Sodium Hypochlorite (Dakins Diluted ()) 1 applic DAILY TP Last administered on 02/17/19 08:53; Admin Dose 1 APPLIC; Start 02/09/19 at 09:00 Daptomycin 450 mg/ Sodium Chloride 100 ml @ 200 mls/hr Q24H IVPB Last administered on 02/16/19 21:47; Admin Dose 200 MLS/HR; Start 02/10/19 at 16:00 Gentamicin Sulfate (Gentamicin Iv Per Pharmacy) GENTAMICIN PER PHARMACY NOTE XX ; Start 02/10/19 at 14:00 Nifedipine (Procardia Xl) 30 mg BID PO Last administered on 02/13/19 09:13; Admin Dose 30 MG; Start 02/11/19 at 15:00 Polyethylene Glycol (Miralax) 17 gm DAILY PO Last administered on 02/12/19at 12:40; Admin Dose 17 GM; Start 02/12/19 at 12:30 Famotidine (Pepcid) 20 mg DAILY PO ; Start 02/14/19 at 09:00 Metoprolol Tartrate (Lopressor) 100 mg BID PO Last administered on 02/14/19at 08:16; Admin Dose 100 MG; Start 02/13/19 at 21:00 Aspirin (Halfprin) 81 mg DAILY PO ; Start 02/14/19 at 09:00 Lactobacillus Acidophilus/ Rhamnosus (Culturelle) 1 cap BID PO Last administered on 02/16/19at 20:38; Admin Dose 1 CAP; Start 02/13/19 at 21:00 Enoxaparin Sodium (Lovenox) 40 mg DAILY SC Last administered on 02/14/19 08:19; Admin Dose 40 MG; Start 02/14/19 at 09:00 Nicotine (Nicoderm 14 Mg/ 24hr) 1 patch DAILY PRN TRANSDERM CONTROL WITHDRAWAL SYMPTOMS; Start 02/13/19 at 15:00 Gentamicin Sulfate 360 mg/ Sodium Chloride 109 ml @ 109 mls/hr Q36H IVPB Last administered on 02/17/19at 05:36; Admin Dose 109 MLS/HR; Start 02/14/19 at 06:00 Miscellaneous Information (*Rx Drug Level Order Reminder*) GENT TROUGH @ 1,700 1700 ONCE XX ; Start 02/18/19 at 17:00; Stop 02/18/19 at 17:01 CHANTALE RAMIREZ NP Feb 17, 2019 15:28
[2019-02-17] MEDS: DAPTOMYCIN 450 MG in SOD CHLORIDE 0.9% 100 ML IVPB SCH (16:13)
[2019-02-17 20:10] VITALS: BP 181/82; PULSE 90; RESP 18
[2019-02-18] MEDS: ACCU-CHEK XX SCH (01:31)
[2019-02-18 07:20] VITALS: BP 178/85; PULSE 79; RESP 17
[2019-02-18] MEDS: INSULIN ASPART [NOVOLOG] 3 ML PEN SC SCH ×4 (08:00→20:17)
[2019-02-18] MEDS: INSULIN GLARGINE [LANTus] (100 UNITS/ML) SYG SC SCH (08:00)
[2019-02-18] MEDS: metFORMIN 500 MG TAB PO SCH ×2 (08:25→17:09)
[2019-02-18] MEDS: GABAPENTIN 100 MG CAP PO SCH ×3 (08:26→20:13)
[2019-02-18] MEDS: LACTOBACILLUS RHAMNOSUS CAP PO SCH ×2 (08:28→20:13)
[2019-02-18] MEDS: NIFEdipine (XL) 30 MG TAB PO SCH ×2 (08:36→20:12)
[2019-02-18] MEDS: POLYETHYLENE GLYCOL 17 GM PACKET PO SCH (08:36)
[2019-02-18] MEDS: ASPIRIN (EC) 81 MG TAB PO SCH (08:36)
[2019-02-18] MEDS: FAMOTIDINE 20 MG TAB PO SCH (08:36)
[2019-02-18] MEDS: METOPROLOL 100 MG TAB PO SCH ×2 (08:36→20:12)
[2019-02-18] MEDS: MULTIVITAMINS THERAPEUTIC TAB PO SCH (08:37)
[2019-02-18] MEDS: ASCORBIC ACID 500 MG TAB PO SCH (08:37)
[2019-02-18] MEDS: LISINOPRIL 20 MG TAB PO SCH (08:37)
[2019-02-18] MEDS: ENOXAPARIN 40 MG/0.4 ML SYG SC SCH (08:37)
[2019-02-18] MEDS: DAKINS 0.0125%(1/40) 473 ML SOLUTION TP SCH (08:51)
[2019-02-18] MEDS: MUPIROCIN 2% 22 GM OINT TOP SCH (08:52)
[2019-02-18] MEDS: CLOTRIMAZOLE 1% 30 GM CR TOP SCH ×2 (08:52→20:20)
[2019-02-18] MEDS: COLLAGENASE 5 GM (UD JAR) TOP SCH (08:52)
--- NOTE | 2019-02-18 11:32 | CONS ---
Assessment/Plan Assessment/Plan Hospital Course (Demo Recall) No IV, pt requesting PO abx Left and right buttock wounds grew MRSA, Pseudomonas, Enterococcus, Corynebacterium group JK Blood culture on admission grew staph species 1 out of 2 sets Antimicrobials: Gent, Daptomycin==> not given over night ALLERGIES: HE IS NOT ALLERGIC TO ANY ANTIBIOTICS. PHYSICAL EXAMINATION: GENERAL: Well-developed elderly -English man who is in no distress. HEENT: Head is atraumatic, normocephalic. Sclerae are anicteric. Buccal mucosa is dry. NECK: Supple. CHEST: Rise symmetrical. Breath sounds diminished to bases. HEART: S1, S2. ABDOMEN: Soft. Bowel tones are present. EXTREMITIES: With bilateral lower extremities dressing intact. Assessment: 1. Bilateral lower extremities diabetic ulcerations 2. Left foot osteomyelitis 3. Diabetes with diabetic neuropathy 4. Bilateral buttocks ulcerations, status post debridement 5. Coag negative staph bacteremia consistent with contaminant 6. Noncompliance Plan: Change Daptomycin to PO Zyvox, no other PO substitute for GNR coverage, consider new line Pt needs to complete Zyvox and Gentamicin ==> last dose February 23, then change to IV Vanco and IV Rocephin till March 22 to complete course for OM Consultation Date/Type/Reason Admit Date/Time Feb 06, 2019 at 03:18 Initial Consult Date 02/07/19 Type of Consult id Requesting Provider: MASOUD SOLANO DPM Date/Time of Note DATE: 02/18/19 TIME: 11:30 Exam/Review of Systems Exam Vitals Vital Signs Date Temp Pulse Resp B/P (MAP) Pulse Ox O2 O2 Flow FiO2 Time Delivery Rate 02/18/19 97.7 79 17 178/85 99 Room Air 07:20 (116) Intake and Output 02/17/19 02/17/19 02/18/19 1515:00 23:00 07:00 IntakeIntake Total 360 ml 500 ml OutputOutput Total 1500 ml BalanceBalance 360 ml -1000 ml Results Result Diagram: 02/16/19 0611 Results 24hrs Laboratory Tests Test 02/17/19 12:26 02/17/19 17:43 02/17/19 20:45 02/18/19 08:19 Bedside Glucose 136 104 140 85 Medications Medication Current Medications IV Flush (NS 3 ml) 3 ml PER PROTOCOL IV Last administered on 02/14/19 08:13; Admin Dose 3 ML; Start 02/06/19 at 05:30 Ondansetron HCl (Zofran Inj) 4 mg Q6H PRN IV NAUSEA/VOMITING; Start 02/06/19 at 05:30 Acetaminophen (Tylenol Tab) 650 mg Q6H PRN PO .PAIN 1-3 OR TEMP Last adminis tered on 02/06/19at 21:57; Admin Dose 650 MG; Start 02/06/19 at 05:30 Acetaminophen/ Hydrocodone Bitart ([place] (5/325)) 1 tab Q6H PRN PO .MOD PAIN 4- 6 Last administered on 02/12/19 18:20; Admin Dose 1 TAB; Start 02/06/19 at 05:30 Morphine Sulfate (morphine) 2 mg Q4H PRN IV .SEVERE PAIN 7-10; Start 02/06/19 at 05:30 Docusate Sodium (Colace) 100 mg Q12H PRN PO .CONSTIPATION; Start 02/06/19 at 05:30 Magnesium Hydroxide (Milk Of Mag) 30 ml DAILY PRN PO .CONSTIPATION Last administered on 02/09/19 13:58; Admin Dose 30 ML; Start 02/06/19 at 05:30 Lorazepam (Ativan) 0.5 mg Q6H PRN IV ANXIETY; Start 02/06/19 at 05:30 Albuterol/ Ipratropium (Duoneb) 3 ml Q4H RESP THERAPY PRN HHN SHORTNESS OF BREATH; Start 02/06/19 at 05:30 Hydralazine HCl (Apresoline) 10 mg Q6H PRN IV ELEVATED BLOOD PRESSURE Last adm inistered on 02/17/19at 20:33; Admin Dose 10 MG; Start 02/06/19 at 05:30 Clonidine (Catapres) 0.1 mg Q6H PRN PO ELEVATED SYSTOLIC BP Last administered on 02/09/19 15:16; Admin Dose 0.1 MG; Start 02/06/19 at 05:30 Nitroglycerin (Nitroglycerin (Sl Tab) 0.4 Mg) 1 tab Q5M PRN SL ANGINA; Start 02/06/19 at 05:30 Ascorbic Acid (Vitamin C) 500 mg DAILY PO Last administered on 6/10/19at 08:25; Admin Dose 500 MG; Start 02/06/19 at 09:00 Gabapentin (Neurontin) 100 mg TID PO Last administered on 02/18/19at 08:26; Admin Dose 100 MG; Start 02/06/19 at 09:00 Multivitamins Therapeutic (Theragran) 1 tab DAILY PO Last administered on 02/10/19at 08:25; Admin Dose 1 TAB; Start 02/06/19 at 09:00 Miscellaneous Information Patients own medicat... BID@10,16 XX ; Start 02/06/19 at 16:00 Diagnostic Test (Pha) (Accu-Chek) 1 ea 02 XX ; Start 02/07/19 at 02:00 Insulin Glargine (Lantus) 20 units DAILY@0800 SC ; Start 02/06/19 at 15:30 Insulin Aspart (Novolog Insulin Pen) NOVOLOG *MILD* ALGORITHM WITH MEALS BEDTIME SC ; Start 02/06/19 at 18:00 Miscellaneous Information 1 ea NOTE XX ; Start 02/06/19 at 14:30 Glucose (Glutose) 15 gm Q15M PRN PO DECREASED GLUCOSE; Start 02/06/19 at 14:30 Glucose (Glutose) 22.5 gm Q15M PRN PO DECREASED GLUCOSE; Start 02/06/19 at 14:30 Dextrose (D50w Syringe) 25 ml Q15M PRN IV DECREASED GLUCOSE; Start 02/06/19 at 14:30 Dextrose (D50w Syringe) 50 ml Q15M PRN IV DECREASED GLUCOSE; Start 02/06/19 at 14:30 Glucagon (Glucagen) 1 mg Q15M PRN IM DECREASED GLUCOSE; Start 02/06/19 at 14:30 Glucose (Glutose) 15 gm Q15M PRN BUCCAL DECREASED GLUCOSE; Start 02/06/19 at 14:30 Collagenase (Santyl) 1 applic DAILY TOP Last administered on 02/18/19at 08:52; Admin Dose 1 APPLIC; Start 02/06/19 at 18:30 Collagenase (Santyl) 1 applic PRN PRN TOP WHEN SOILED; Start 02/06/19 at 18:30 Lisinopril (Zestril) 40 mg DAILY PO Last administered on 02/13/19at 08:41; Admin Dose 40 MG; Start 02/08/19 at 09:00 Metformin HCl (Glucophage) 1,000 mg WITH BREAKFAST DINNE PO Last administered on 02/18/19 08:25; Admin Dose 1,000 MG; Start 02/07/19 at 18:00 Clotrimazole (Lotrimin Cr) 1 applic BID TOP Last administered on 02/18/19 08:52; Admin Dose 1 APPLIC; Start 02/07/19 at 11:30 Sodium Hypochlorite (Dakins Diluted ()) 1 applic DAILY TP Last administered on 02/18/19 08:51; Admin Dose 1 APPLIC; Start 02/09/19 at 09:00 Daptomycin 450 mg/ Sodium Chloride 100 ml @ 200 mls/hr Q24H IVPB Last administered on 02/17/19 16:13; Admin Dose 200 MLS/HR; Start 02/10/19 at 16:00 Gentamicin Sulfate (Gentamicin Iv Per Pharmacy) GENTAMICIN PER PHARMACY NOTE XX ; Start 02/10/19 at 14:00 Nifedipine (Procardia Xl) 30 mg BID PO Last administered on 02/13/19at 09:13; Admin Dose 30 MG; Start 02/11/19 at 15:00 Polyethylene Glycol (Miralax) 17 gm DAILY PO Last administered on 02/12/19at 12:40; Admin Dose 17 GM; Start 02/12/19 at 12:30 Famotidine (Pepcid) 20 mg DAILY PO ; Start 02/14/19 at 09:00 Metoprolol Tartrate (Lopressor) 100 mg BID PO Last administered on 02/14/19 08:16; Admin Dose 100 MG; Start 02/13/19 at 21:00 Aspirin (Halfprin) 81 mg DAILY PO ; Start 02/14/19 at 09:00 Lactobacillus Acidophilus/ Rhamnosus (Culturelle) 1 cap BID PO Last administered on 02/16/19at 20:38; Admin Dose 1 CAP; Start 02/13/19 at 21:00 Enoxaparin Sodium (Lovenox) 40 mg DAILY SC Last administered on 02/14/19 08:19; Admin Dose 40 MG; Start 02/14/19 at 09:00 Nicotine (Nicoderm 14 Mg/ 24hr) 1 patch DAILY PRN TRANSDERM CONTROL WITHDRAWAL SYMPTOMS; Start 02/13/19 at 15:00 Gentamicin Sulfate 360 mg/ Sodium Chloride 109 ml @ 109 mls/hr Q36H IVPB Last administered on 02/17/19at 05:36; Admin Dose 109 MLS/HR; Start 02/14/19 at 06:00 Miscellaneous Information (*Rx Drug Level Order Reminder*) GENT TROUGH @ 1,700 1700 ONCE XX ; Start 02/18/19 at 17:00; Stop 02/18/19 at 17:01 CHANTALE RAMIREZ NP Feb 18, 2019 11:32
[2019-02-18 13:33] VITALS: BP 198/96; PULSE 86; RESP 16
--- NOTE | 2019-02-18 15:03 | PN ---
Date/Time of Note Date/Time of Note DATE: 02/18/19 TIME: 15:02 Assessment/Plan VTE Prophylaxis Risk score (from Nsg)>0 risk: 4 SCD applied (from Ns): No SCD contraindicated: other Pharmacological prophylaxis: LMWH Lines/Catheters IV Catheter Type (from Nrs): Peripheral IV Urinary Cath still in place: Yes Reason Cath still needed: other (indicate) (monitor I&O) Assessment/Plan Hospital Course 1. Osteomyelitis of the left fifth metatarsal (01/20/2019). - Incompletely treated with IV abx due to noncompliance. - Daptomycin/gentamicin until 02/23/2019, then changed to IV Vanco plus Rocephin 03/22/2019 to complete the course of antibiotics. - continue with ID recommendations 2. Chronic bilateral lower extremity ulcers. - continue wound care 3. Multiple bilateral gluteal wounds. - Continue abx per ID. - Status post debridement on 02/07/2019. 4. Hypertension. - Continue antihypertensives. 5. Diabetes mellitus. - Hemoglobin A1c 6.5. - Continue metformin. - refusing insulin 6. Peripheral neuropathy. - Continue gabapentin. 7. Nicotine use. - Cessation was advised. 9. Debility with contractures. - Wheelchair-bound. - continue Physical therapy. 10. 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 - antisqueak worker following. 11. Chronic neurogenic bladder. - Chanel cath in place. 12. Noncompliance with medications and medical management. - Compliance was advised Disposition and plan. Awaiting outpatient set up with antibiotic treatment. monitor labs. discussed plan with patient. DC once set up Discussed plan of care with Dr. Oleary Result Diagram: 02/16/19 0611 Results 24hrs Laboratory Tests Test 02/17/19 17:43 02/17/19 20:45 02/18/19 08:19 02/18/19 12:13 Bedside Glucose 104 140 85 91 Subjective 24 Hr Interval Summary Free Text/Dictation no s/s of distress. comfortable at present Exam/Review of Systems Exam Vitals Vital Signs Date Temp Pulse Resp B/P (MAP) Pulse Ox O2 O2 Flow FiO2 Time Delivery Rate 02/18/19 98.4 86 16 198/96 100 Room Air 13:33 (130) Intake and Output 02/17/19 02/17/19 02/18/19 1515:00 23:00 07:00 IntakeIntake Total 360 ml 500 ml OutputOutput Total 1500 ml BalanceBalance 360 ml -1000 ml Exam Constitutional: alert, oriented Psych: nl mood/affect Head: normocephalic Respiratory: normal air movement Cardiovascular: other (regular rate ) Gastrointestinal: soft, non-tender Extremities: other (contractures BLE with wounds. ) Neurological: COAL TRAMMER II-XII intact, nl mental status, nl speech Results Results 24hrs Laboratory Tests Test 02/17/19 17:43 02/17/19 20:45 02/18/19 08:19 02/18/19 12:13 Bedside Glucose 104 140 85 91 Medications Medication Current Medications IV Flush (NS 3 ml) 3 ml PER PROTOCOL IV Last administered on 02/14/19 08:13; Admin Dose 3 ML; Start 02/06/19 at 05:30 Ondansetron HCl (Zofran Inj) 4 mg Q6H PRN IV NAUSEA/VOMITING; Start 02/06/19 at 05:30 Acetaminophen (Tylenol Tab) 650 mg Q6H PRN PO .PAIN 1-3 OR TEMP Last administered on 02/06/19at 21:57; Admin Dose 650 MG; Start 02/06/19 at 05:30 Acetaminophen/ Hydrocodone Bitart ([place] (5/325)) 1 tab Q6H PRN PO .MOD PAIN 4- 6 Last administered on 02/12/19at 18:20; Admin Dose 1 TAB; Start 02/06/19 at 05:30 Morphine Sulfate (morphine) 2 mg Q4H PRN IV .SEVERE PAIN 7-10; Start 02/06/19 at 05:30 Docusate Sodium (Colace) 100 mg Q12H PRN PO .CONSTIPATION; Start 02/06/19 at 05:30 Magnesium Hydroxide (Milk Of Mag) 30 ml DAILY PRN PO .CONSTIPATION Last admin istered on 02/09/19at 13:58; Admin Dose 30 ML; Start 02/06/19 at 05:30 Lorazepam (Ativan) 0.5 mg Q6H PRN IV ANXIETY; Start 02/06/19 at 05:30 Albuterol/ Ipratropium (Duoneb) 3 ml Q4H RESP THERAPY PRN HHN SHORTNESS OF BREATH; Start 02/06/19 at 05:30 Hydralazine HCl (Apresoline) 10 mg Q6H PRN IV ELEVATED BLOOD PRESSURE Last administered on 02/17/19at 20:33; Admin Dose 10 MG; Start 02/06/19 at 05:30 Clonidine (Catapres) 0.1 mg Q6H PRN PO ELEVATED SYSTOLIC BP Last administered on 02/18/19at 13:40; Admin Dose 0.1 MG; Start 02/06/19 at 05:30 Nitroglycerin (Nitroglycerin (Sl Tab) 0.4 Mg) 1 tab Q5M PRN SL ANGINA; Start 02/06/19 at 05:30 Ascorbic Acid (Vitamin C) 500 mg DAILY PO Last administered on 02/10/19at 08:25; Admin Dose 500 MG; Start 02/06/19 at 09:00 Gabapentin (Neurontin) 100 mg TID PO Last administered on 02/18/19at 13:40; Admin Dose 100 MG; Start 02/06/19 at 09:00 Multivitamins Therapeutic (Theragran) 1 tab DAILY PO Last administered on 02/10/19at 08:25; Admin Dose 1 TAB; Start 02/06/19 at 09:00 Miscellaneous Information Patients own medicat... BID@10,16 XX ; Start 02/06/19 at 16:00 Diagnostic Test (Pha) (Accu-Chek) 1 ea 02 XX ; Start 02/07/19 at 02:00 Insulin Aspart (Novolog Insulin Pen) NOVOLOG *MILD* ALGORITHM WITH MEALS BEDTIME SC ; Start 02/06/19 at 18:00 Miscellaneous Information 1 ea NOTE XX ; Start 02/06/19 at 14:30 Glucose (Glutose) 15 gm Q15M PRN PO DECREASED GLUCOSE; Start 02/06/19 at 14:30 Glucose (Glutose) 22.5 gm Q15M PRN PO DECREASED GLUCOSE; Start 02/06/19 at 14:30 Dextrose (D50w Syringe) 25 ml Q15M PRN IV DECREASED GLUCOSE; Start 02/06/19 at 14:30 Dextrose (D50w Syringe) 50 ml Q15M PRN IV DECREASED GLUCOSE; Start 02/06/19 at 14:30 Glucagon (Glucagen) 1 mg Q15M PRN IM DECREASED GLUCOSE; Start 02/06/19 at 14:30 Glucose (Glutose) 15 gm Q15M PRN BUCCAL DECREASED GLUCOSE; Start 02/06/19 at 14:30 Collagenase (Santyl) 1 applic DAILY TOP Last administered on 02/18/19 08:52; Admin Dose 1 APPLIC; Start 02/06/19 at 18:30 Collagenase (Santyl) 1 applic PRN PRN TOP WHEN SOILED; Start 02/06/19 at 18:30 Lisinopril (Zestril) 40 mg DAILY PO Last administered on 02/13/19 08:41; Admin Dose 40 MG; Start 02/08/19 at 09:00 Metformin HCl (Glucophage) 1,000 mg WITH BREAKFAST DINNE PO Last administered on 02/18/19 08:25; Admin Dose 1,000 MG; Start 02/07/19 at 18:00 Clotrimazole (Lotrimin Cr) 1 applic BID TOP Last administered on 02/18/19 08:52; Admin Dose 1 APPLIC; Start 02/07/19 at 11:30 Sodium Hypochlorite (Dakins Diluted ()) 1 applic DAILY TP Last administered on 02/18/19 08:51; Admin Dose 1 APPLIC; Start 02/09/19 at 09:00 Daptomycin 450 mg/ Sodium Chloride 100 ml @ 200 mls/hr Q24H IVPB Last administered on 02/17/19 16:13; Admin Dose 200 MLS/HR; Start 02/10/19 at 16:00 Gentamicin Sulfate (Gentamicin Iv Per Pharmacy) GENTAMICIN PER PHARMACY NOTE XX ; Start 02/10/19 at 14:00 Nifedipine (Procardia Xl) 30 mg BID PO Last administered on 02/13/19 09:13; Admin Dose 30 MG; Start 02/11/19 at 15:00 Polyethylene Glycol (Miralax) 17 gm DAILY PO Last administered on 02/12/19at 12:40; Admin Dose 17 GM; Start 02/12/19 at 12:30 Famotidine (Pepcid) 20 mg DAILY PO ; Start 02/14/19 at 09:00 Metoprolol Tartrate (Lopressor) 100 mg BID PO Last administered on 02/14/19at 08:16; Admin Dose 100 MG; Start 02/13/19 at 21:00 Aspirin (Halfprin) 81 mg DAILY PO ; Start 02/14/19 at 09:00 Lactobacillus Acidophilus/ Rhamnosus (Culturelle) 1 cap BID PO Last administered on 02/16/19at 20:38; Admin Dose 1 CAP; Start 02/13/19 at 21:00 Enoxaparin Sodium (Lovenox) 40 mg DAILY SC Last administered on 02/14/19at 08:19; Admin Dose 40 MG; Start 02/14/19 at 09:00 Nicotine (Nicoderm 14 Mg/ 24hr) 1 patch DAILY PRN TRANSDERM CONTROL WITHDRAWAL SYMPTOMS; Start 02/13/19 at 15:00 Gentamicin Sulfate 360 mg/ Sodium Chloride 109 ml @ 109 mls/hr Q36H IVPB Last administered on 02/17/19at 05:36; Admin Dose 109 MLS/HR; Start 02/14/19 at 06:00 Miscellaneous Information (*Rx Drug Level Order Reminder*) GENT TROUGH @ 1,700 1700 ONCE XX ; Start 02/18/19 at 17:00; Stop 02/18/19 at 17:01 Linezolid (Zyvox) 600 mg BID PO ; Start 02/18/19 at 12:00 SONAL SCHROEDER NP Feb 18, 2019 15:03
[2019-02-18] MEDS: ZYVOX 600 MG TAB PO SCH ×2 (15:10→20:13)
[2019-02-18] MEDS: DAPTOMYCIN 450 MG in SOD CHLORIDE 0.9% 100 ML IVPB SCH (16:00)
[2019-02-18] MEDS: GENTAMICIN 360 MG in SOD CHLORIDE 0.9% 100 ML IVPB SCH (17:08)
--- NOTE | 2019-02-18 17:42 | PN ---
Date/Time of Note Date/Time of Note DATE: 02/18/19 TIME: 17:41 Assessment/Plan Lines/Catheters IV Catheter Type (from Rust): Peripheral IV Chanel in Place (from Rust): Yes Assessment/Plan Chief Complaint/Hosp Course 1. Multiple wounds s/p debridement of bilat buttock 02/07/19 -further debridement prn -Continue local care> w dakins -frequent turning and off-loading -low air loss mattress -vitamin c -short term zinc -optimize nutrition -bilateral LE wounds: per podiatry 2. Osteomyelitis BLE s/p iv abx per ID -placement pending 3. Hypertension -nutrition and medication management 4. Diabetes: hga1c: 6.5 -nutrition and medication management 5. Diabetic neuropathy -safety precs (ensure no lines/tubes, etc on skin) -diabetes optimization 6. Hypochromic anemia -monitor and tx as needed 7. Depression -psych optimization 8. Hypocalcemia: likely multifactorial -nutrition optimization -treat infections 9. 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 Patient seen and examined in collaboration with Dr. Kj Moran Subjective 24 Hr Interval Summary Hypertensive. No fevers, chills, sob, congested cough, cp, palpitations, koch, di zziness, n/v/d/dysuria. Exam/Review of Systems Vital Signs Vitals Vital Signs Date Temp Pulse Resp B/P (MAP) Pulse Ox O2 O2 Flow FiO2 Time Delivery Rate 02/18/19 98.4 86 16 198/96 100 Room Air 13:33 (130) Intake and Output 02/17/19 02/17/19 02/18/19 1515:00 23:00 07:00 IntakeIntake Total 360 ml 500 ml OutputOutput Total 1500 ml BalanceBalance 360 ml -1000 ml Exam Free Text/Dictation Constitutional: alert, oriented, well developed Psych: nl mood/affect, labile Head: normocephalic, atraumatic Eyes: nl conjunctiva, EOMI, nl lids, nl sclera ENMT: nl external ears & nose, nl lips & teeth, mucosa pink and moist Neck: supple, non-tender; No jvd Respiratory: normal air movement; No congested cough Cardiovascular: regular rate and rhythm, nl pulses; No edema Gastrointestinal: soft, non-tender Genitourinary - Male: nl penis, nl scrotum Musculoskeletal: nl extremities to inspection, other (contracted BLE) Extremities: normal pulses; No pitting pedal edema Neurological: nl mental status, nl speech, nl strength Skin: other (multiple wounds: bilat buttock: clean, no periwound erythema, scant drainage); BLE: wounds: dry No rash or lesions Lymph: No nl lymph nodes Results Result Diagram: 02/16/19 0611 CALLY NOEL NP Feb 18, 2019 17:42
[2019-02-18 19:44] VITALS: BP 180/94; PULSE 78; RESP 18
[2019-02-19] MEDS: ACCU-CHEK XX SCH (01:14)
[2019-02-19 01:40] VITALS: BP 159/80; PULSE 84; RESP 18
[2019-02-19 08:00] VITALS: BP 168/68; PULSE 72; RESP 18
[2019-02-19] MEDS: INSULIN ASPART [NOVOLOG] 3 ML PEN SC SCH ×4 (08:00→21:00)
[2019-02-19] MEDS: HYDROCODONE/APAP (5/325) TAB PO PRN ×3 (08:27→21:40)
[2019-02-19] MEDS: COLLAGENASE 5 GM (UD JAR) TOP SCH (08:29)
[2019-02-19] MEDS: FAMOTIDINE 20 MG TAB PO SCH (08:29)
[2019-02-19] MEDS: LACTOBACILLUS RHAMNOSUS CAP PO SCH ×2 (08:29→21:30)
[2019-02-19] MEDS: GABAPENTIN 100 MG CAP PO SCH ×3 (08:29→21:31)
[2019-02-19] MEDS: ZYVOX 600 MG TAB PO SCH ×2 (08:29→21:30)
[2019-02-19] MEDS: POLYETHYLENE GLYCOL 17 GM PACKET PO SCH (08:35)
[2019-02-19] MEDS: METOPROLOL 100 MG TAB PO SCH ×2 (08:35→21:31)
[2019-02-19] MEDS: metFORMIN 500 MG TAB PO SCH ×2 (08:35→17:19)
[2019-02-19] MEDS: ASPIRIN (EC) 81 MG TAB PO SCH (08:35)
[2019-02-19] MEDS: CLOTRIMAZOLE 1% 30 GM CR TOP SCH ×2 (08:36→21:42)
[2019-02-19] MEDS: ENOXAPARIN 40 MG/0.4 ML SYG SC SCH (08:36)
[2019-02-19] MEDS: DAKINS 0.0125%(1/40) 473 ML SOLUTION TP SCH (08:36)
[2019-02-19] MEDS: LISINOPRIL 20 MG TAB PO SCH (08:38)
[2019-02-19] MEDS: ASCORBIC ACID 500 MG TAB PO SCH (08:38)
[2019-02-19] MEDS: MULTIVITAMINS THERAPEUTIC TAB PO SCH (08:38)
[2019-02-19] MEDS: NIFEdipine (XL) 30 MG TAB PO SCH ×2 (08:39→21:31)
--- NOTE | 2019-02-19 11:19 | PN ---
Date/Time of Note Date/Time of Note DATE: 02/19/19 TIME: 11:18 Assessment/Plan Lines/Catheters IV Catheter Type (from Nrs): Peripheral IV Chanel in Place (from Nrs): Yes Assessment/Plan Chief Complaint/Hosp Course 1. Multiple wounds s/p debridement of bilat buttock 02/07/19 healing well -further debridement prn -Continue local care> w dakins -frequent turning and off-loading -low air loss mattress -vitamin c -short term zinc -optimize nutrition -bilateral LE wounds: per podiatry 2. Osteomyelitis BLE s/p iv abx per ID -placement pending 3. Hypertension -nutrition and medication management 4. Diabetes: hga1c: 6.5 -nutrition and medication management 5. Diabetic neuropathy -safety precs (ensure no lines/tubes, etc on skin) -diabetes optimization 6. Hypochromic anemia -monitor and tx as needed 7. Depression -psych optimization 8. 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 Patient seen and examined in collaboration with Dr. Kj Moran Subjective 24 Hr Interval Summary Blood pressure improved. No acute complaints. No fevers, chills, sob, congested cough, cp, palpitations, koch, dizziness, nausea, vomiting, diarrhea, dysuria, excessive wound drainage or odor. Exam/Review of Systems Vital Signs Vitals Vital Signs Date Temp Pulse Resp B/P (MAP) Pulse Ox O2 O2 Flow FiO2 Time Delivery Rate 02/19/19 98.1 72 18 168/68 99 08:00 (101) 02/18/19 Room Air 13:33 Intake and Output 02/18/19 02/18/19 02/19/19 1515:00 23:00 07:00 IntakeIntake Total 480 ml OutputOutput Total 1100 ml 750 ml BalanceBalance -620 ml -750 ml Exam Free Text/Dictation Constitutional: alert, oriented, well developed Psych: nl mood/affect, labile Head: normocephalic, atraumatic Eyes: nl conjunctiva, EOMI, nl lids, nl sclera ENMT: nl external ears & nose, nl lips & teeth, mucosa pink and moist Neck: supple, non-tender; No jvd Respiratory: normal air movement; No congested cough Cardiovascular: regular rate and rhythm, nl pulses; No edema Gastrointestinal: soft, non-tender Genitourinary - Male: nl penis, nl scrotum Musculoskeletal: nl extremities to inspection, other (contracted BLE) Extremities: normal pulses; No pitting pedal edema Neurological: nl mental status, nl speech, nl strength Skin: other (multiple wounds: bilat buttock: clean, no periwound erythema, scant drainage); BLE: wounds: dry No rash or lesions Lymph: No nl lymph nodes Results Result Diagram: 02/16/19 0611 CALLY NOEL NP Feb 19, 2019 11:19
--- NOTE | 2019-02-19 12:27 | PN ---
Date/Time of Note Date/Time of Note DATE: 02/19/19 TIME: 12:23 Assessment/Plan VTE Prophylaxis Risk score (from Nsg)>0 risk: 6 SCD applied (from Ns): No SCD contraindicated: other Pharmacological prophylaxis: LMWH Lines/Catheters IV Catheter Type (from Nrs): Peripheral IV Urinary Cath still in place: Yes Reason Cath still needed: other (indicate) ( monitor I&O) Assessment/Plan Hospital Course 1. Osteomyelitis of the left fifth metatarsal (01/20/2019). - Incompletely treated with IV abx due to noncompliance. - Daptomycin/gentamicin until 02/23/2019, then changed to IV Vanco plus Rocephin 03/22/2019 to complete the course of antibiotics. - continue with ID recommendations 2. Chronic bilateral lower extremity ulcers. - continue wound care 3. Multiple bilateral gluteal wounds. - Continue abx per ID. - Status post debridement on 02/07/2019. 4. Hypertension. - Continue antihypertensives. 5. Diabetes mellitus. - Hemoglobin A1c 6.5. - Continue metformin. - refusing insulin 6. Peripheral neuropathy. - Continue gabapentin. 7. Nicotine use. - Cessation was advised. 9. Debility with contractures. - Wheelchair-bound. - Physical therapy was ordered but patient refusing 10. 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 - certified social workers in health care following. 11. Chronic neurogenic bladder. - Chanel cath in place. 12. Noncompliance with medications and medical management. - Compliance was advised 11. Hyperkalemia - kayexalate prn - monitor trend Disposition and plan. Awaiting outpatient set up with antibiotic treatment. Hyperkalemic today, f/u labs. kayexalate if worse. medical compliance reiterated Discussed plan of care with Dr. Oleary Result Diagram: 02/19/19 1048 Results 24hrs Laboratory Tests Test 02/18/19 17:07 02/18/19 20:16 02/19/19 08:23 02/19/19 10:48 Bedside Glucose 126 109 112 Sodium Level 138 Potassium Level 5.2 H Chloride Level 104 Carbon Dioxide Level 26 Anion Gap 8 Blood Urea Nitrogen 29 H Creatinine 1.08 Est Glomerular > 60 Filtrat Rate mL/min Glucose Level 136 Calcium Level 9.3 Creatine Kinase 59 Subjective 24 Hr Interval Summary Free Text/Dictation no specific complaints, resting in bed. Exam/Review of Systems Exam Vitals Vital Signs Date Temp Pulse Resp B/P (MAP) Pulse Ox O2 O2 Flow FiO2 Time Delivery Rate 02/19/19 98.1 72 18 168/68 99 08:00 (101) 02/18/19 Room Air 13:33 Intake and Output 02/18/19 02/18/19 02/19/19 1515:00 23:00 07:00 IntakeIntake Total 480 ml OutputOutput Total 1100 ml 750 ml BalanceBalance -620 ml -750 ml Exam Constitutional: alert, oriented Psych: nl mood/affect Head: normocephalic Respiratory: normal air movement Cardiovascular: other (regular rate ) Gastrointestinal: soft, non-tender Extremities: other (contractures BLE with wounds. ) Neurological: IGNITION MECHANIC II-XII intact, nl mental status, nl speech Results Results 24hrs Laboratory Tests Test 02/18/19 17:07 02/18/19 20:16 02/19/19 08:23 02/19/19 10:48 Bedside Glucose 126 109 112 Sodium Level 138 Potassium Level 5.2 H Chloride Level 104 Carbon Dioxide Level 26 Anion Gap 8 Blood Urea Nitrogen 29 H Creatinine 1.08 Est Glomerular > 60 Filtrat Rate mL/min Glucose Level 136 Calcium Level 9.3 Creatine Kinase 59 Medications Medication Current Medications IV Flush (NS 3 ml) 3 ml PER PROTOCOL IV Last administered on 02/14/19at 08:13; Admin Dose 3 ML; Start 02/06/19 at 05:30 Ondansetron HCl (Zofran Inj) 4 mg Q6H PRN IV NAUSEA/VOMITING; Start 02/06/19 at 05:30 Acetaminophen (Tylenol Tab) 650 mg Q6H PRN PO .PAIN 1-3 OR TEMP Last administered on 02/06/19at 21:57; Admin Dose 650 MG; Start 02/06/19 at 05:30 Acetaminophen/ Hydrocodone Bitart ([place] (5/325)) 1 tab Q6H PRN PO .MOD PAIN 4- 6 Last administered on 02/19/19at 08:27; Admin Dose 1 TAB; Start 02/06/19 at 05:30 Morphine Sulfate (morphine) 2 mg Q4H PRN IV .SEVERE PAIN 7-10; Start 02/06/19 at 05:30 Docusate Sodium (Colace) 100 mg Q12H PRN PO .CONSTIPATION; Start 02/06/19 at 05:30 Magnesium Hydroxide (Milk Of Mag) 30 ml DAILY PRN PO .CONSTIPATION Last administered on 02/09/19at 13:58; Admin Dose 30 ML; Start 02/06/19 at 05:30 Lorazepam (Ativan) 0.5 mg Q6H PRN IV ANXIETY; Start 02/06/19 at 05:30 Albuterol/ Ipratropium (Duoneb) 3 ml Q4H RESP THERAPY PRN HHN SHORTNESS OF BREATH; Start 02/06/19 at 05:30 Hydralazine HCl (Apresoline) 10 mg Q6H PRN IV ELEVATED BLOOD PRESSURE Last administered on 02/17/19at 20:33; Admin Dose 10 MG; Start 02/06/19 at 05:30 Clonidine (Catapres) 0.1 mg Q6H PRN PO ELEVATED SYSTOLIC BP Last administered on 02/18/19at 13:40; Admin Dose 0.1 MG; Start 02/06/19 at 05:30 Nitroglycerin (Nitroglycerin (Sl Tab) 0.4 Mg) 1 tab Q5M PRN SL ANGINA; Start 02/06/19 at 05:30 Ascorbic Acid (Vitamin C) 500 mg DAILY PO Last administered on 02/10/19at 08:25; Admin Dose 500 MG; Start 02/06/19 at 09:00 Gabapentin (Neurontin) 100 mg TID PO Last administered on 02/19/19at 08:29; Admin Dose 100 MG; Start 02/06/19 at 09:00 Multivitamins Therapeutic (Theragran) 1 tab DAILY PO Last administered on 02/10/19at 08:25; Admin Dose 1 TAB; Start 02/06/19 at 09:00 Miscellaneous Information Patients own medicat... BID@10,16 XX ; Start 02/06/19 at 16:00 Diagnostic Test (Pha) (Accu-Chek) 1 ea 02 XX ; Start 02/07/19 at 02:00 Insulin Aspart (Novolog Insulin Pen) NOVOLOG *MILD* ALGORITHM WITH MEALS BEDTIME SC ; Start 02/06/19 at 18:00 Miscellaneous Information 1 ea NOTE XX ; Start 02/06/19 at 14:30 Glucose (Glutose) 15 gm Q15M PRN PO DECREASED GLUCOSE; Start 02/06/19 at 14:30 Glucose (Glutose) 22.5 gm Q15M PRN PO DECREASED GLUCOSE; Start 02/06/19 at 14:30 Dextrose (D50w Syringe) 25 ml Q15M PRN IV DECREASED GLUCOSE; Start 02/06/19 at 14:30 Dextrose (D50w Syringe) 50 ml Q15M PRN IV DECREASED GLUCOSE; Start 02/06/19 at 14:30 Glucagon (Glucagen) 1 mg Q15M PRN IM DECREASED GLUCOSE; Start 02/06/19 at 14:30 Glucose (Glutose) 15 gm Q15M PRN BUCCAL DECREASED GLUCOSE; Start 02/06/19 at 14:30 Collagenase (Santyl) 1 applic DAILY TOP Last administered on 02/19/19 08:29; Admin Dose 1 APPLIC; Start 02/06/19 at 18:30 Collagenase (Santyl) 1 applic PRN PRN TOP WHEN SOILED; Start 02/06/19 at 18:30 Lisinopril (Zestril) 40 mg DAILY PO Last administered on 02/13/19at 08:41; Admin Dose 40 MG; Start 02/08/19 at 09:00 Metformin HCl (Glucophage) 1,000 mg WITH BREAKFAST DINNE PO Last administered on 02/19/19 08:35; Admin Dose 1,000 MG; Start 02/07/19 at 18:00 Clotrimazole (Lotrimin Cr) 1 applic BID TOP Last administered on 02/19/19 08:36; Admin Dose 1 APPLIC; Start 02/07/19 at 11:30 Sodium Hypochlorite (Dakins Diluted (40)) 1 applic DAILY TP Last administered on 02/19/19at 08:36; Admin Dose 1 APPLIC; Start 02/09/19 at 09:00 Daptomycin 450 mg/ Sodium Chloride 100 ml @ 200 mls/hr Q24H IVPB Last administered on 02/17/19at 16:13; Admin Dose 200 MLS/HR; Start 02/10/19 at 16:00; Status Hold Gentamicin Sulfate (Gentamicin Iv Per Pharmacy) GENTAMICIN PER PHARMACY NOTE XX ; Start 02/10/19 at 14:00 Nifedipine (Procardia Xl) 30 mg BID PO Last administered on 02/18/19at 20:12; Admin Dose 30 MG; Start 02/11/19 at 15:00 Polyethylene Glycol (Miralax) 17 gm DAILY PO Last administered on 02/12/19 12:40; Admin Dose 17 GM; Start 02/12/19 at 12:30 Famotidine (Pepcid) 20 mg DAILY PO Last administered on 02/19/19 08:29; Admin Dose 20 MG; Start 02/14/19 at 09:00 Metoprolol Tartrate (Lopressor) 100 mg BID PO Last administered on 02/18/19 20:12; Admin Dose 100 MG; Start 02/13/19 at 21:00 Aspirin (Halfprin) 81 mg DAILY PO ; Start 02/14/19 at 09:00 Lactobacillus Acidophilus/ Rhamnosus (Culturelle) 1 cap BID PO Last administered on 02/19/19 08:29; Admin Dose 1 CAP; Start 02/13/19 at 21:00 Enoxaparin Sodium (Lovenox) 40 mg DAILY SC Last administered on 02/14/19 08:19; Admin Dose 40 MG; Start 02/14/19 at 09:00 Nicotine (Nicoderm 14 Mg/ 24hr) 1 patch DAILY PRN TRANSDERM CONTROL WITHDRAWAL SYMPTOMS; Start 02/13/19 at 15:00 Gentamicin Sulfate 360 mg/ Sodium Chloride 109 ml @ 109 mls/hr Q36H IVPB Last administered on 02/17/19 05:36; Admin Dose 109 MLS/HR; Start 02/14/19 at 06:00; Status Hold Linezolid (Zyvox) 600 mg BID PO Last administered on 02/19/19 08:29; Admin Dose 600 MG; Start 02/18/19 at 12:00 SONAL SCHROEDER NP Feb 19, 2019 12:27
[2019-02-19] MEDS ORDERED: LIDOCAINE 1% (MPF) 5 ML VIAL SC ONE (13:00)
[2019-02-19 14:00] VITALS: BP 179/84; PULSE 70; RESP 18
[2019-02-19] MEDS: hydrALAzine 20 MG INJ IV PRN (15:26)
--- NOTE | 2019-02-19 15:58 | CONS ---
Assessment/Plan Assessment/Plan Hospital Course (Demo Recall) No IV, pt requesting PO abx Left and right buttock wounds grew MRSA, Pseudomonas, Enterococcus, Corynebacterium group JK Blood culture on admission grew staph species 1 out of 2 sets Antimicrobials: PO Zyvox ALLERGIES: HE IS NOT ALLERGIC TO ANY ANTIBIOTICS. PHYSICAL EXAMINATION: GENERAL: Well-developed elderly -[place]amese man who is in no distress. HEENT: Head is atraumatic, normocephalic. Sclerae are anicteric. Buccal mucosa is dry. NECK: Supple. CHEST: Rise symmetrical. Breath sounds diminished to bases. HEART: S1, S2. ABDOMEN: Soft. Bowel tones are present. EXTREMITIES: With bilateral lower extremities dressing intact. Assessment: 1. Bilateral lower extremities diabetic ulcerations 2. Left foot osteomyelitis 3. Diabetes with diabetic neuropathy 4. Bilateral buttocks ulcerations, status post debridement 5. Coag negative staph bacteremia consistent with contaminant 6. Noncompliance Plan: Patient is stable, awaiting for PICC line, once PICC line placed will resume gentamicin, continue antibiotics as per previous recommendations Consultation Date/Type/Reason Admit Date/Time Feb 06, 2019 at 03:18 Initial Consult Date 02/07/19 Type of Consult id Requesting Provider: MASOUD SOLANO DPM Date/Time of Note DATE: 02/19/19 TIME: 15:57 Exam/Review of Systems Exam Vitals Vital Signs Date Temp Pulse Resp B/P (MAP) Pulse Ox O2 O2 Flow FiO2 Time Delivery Rate 02/19/19 98.3 70 18 179/84 99 14:00 (115) 02/18/19 Room Air 13:33 Intake and Output 02/18/19 02/18/19 02/19/19 1515:00 23:00 07:00 IntakeIntake Total 480 ml OutputOutput Total 1100 ml 750 ml BalanceBalance -620 ml -750 ml Results Result Diagram: 02/19/19 1048 Results 24hrs Laboratory Tests Test 02/18/19 17:07 02/18/19 20:16 02/19/19 08:23 02/19/19 10:48 Bedside Glucose 126 109 112 Sodium Level 138 Potassium Level 5.2 H Chloride Level 104 Carbon Dioxide Level 26 Anion Gap 8 Blood Urea Nitrogen 29 H Creatinine 1.08 Est Glomerular > 60 Filtrat Rate mL/min Glucose Level 136 Calcium Level 9.3 Creatine Kinase 59 Test 02/19/19 12:29 Bedside Glucose 126 Medications Medication Current Medications IV Flush (NS 3 ml) 3 ml PER PROTOCOL IV Last administered on 02/14/19 08:13; Admin Dose 3 ML; Start 02/06/19 at 05:30 Ondansetron HCl (Zofran Inj) 4 mg Q6H PRN IV NAUSEA/VOMITING; Start 02/06/19 at 05:30 Acetaminophen (Tylenol Tab) 650 mg Q6H PRN PO .PAIN 1-3 OR TEMP Last administered on 02/06/19 21:57; Admin Dose 650 MG; Start 02/06/19 at 05:30 Acetaminophen/ Hydrocodone Bitart ([place] (5/325)) 1 tab Q6H PRN PO .MOD PAIN 4- 6 Last administered on 02/19/19 15:25; Admin Dose 1 TAB; Start 02/06/19 at 05:30 Morphine Sulfate (morphine) 2 mg Q4H PRN IV .SEVERE PAIN 7-10; Start 02/06/19 at 05:30 Docusate Sodium (Colace) 100 mg Q12H PRN PO .CONSTIPATION; Start 02/06/19 at 05:30 Magnesium Hydroxide (Milk Of Mag) 30 ml DAILY PRN PO .CONSTIPATION Last administered on 02/09/19 13:58; Admin Dose 30 ML; Start 02/06/19 at 05:30 Lorazepam (Ativan) 0.5 mg Q6H PRN IV ANXIETY; Start 02/06/19 at 05:30 Albuterol/ Ipratropium (Duoneb) 3 ml Q4H RESP THERAPY PRN HHN SHORTNESS OF BREATH; Start 02/06/19 at 05:30 Hydralazine HCl (Apresoline) 10 mg Q6H PRN IV ELEVATED BLOOD PRESSURE Last administered on 02/19/19 15:26; Admin Dose 10 MG; Start 02/06/19 at 05:30 Clonidine (Catapres) 0.1 mg Q6H PRN PO ELEVATED SYSTOLIC BP Last administered on 02/18/19 13:40; Admin Dose 0.1 MG; Start 02/06/19 at 05:30 Nitroglycerin (Nitroglycerin (Sl Tab) 0.4 Mg) 1 tab Q5M PRN SL ANGINA; Start 02/06/19 at 05:30 Ascorbic Acid (Vitamin C) 500 mg DAILY PO Last administered on 02/10/19at 08:25; Admin Dose 500 MG; Start 02/06/19 at 09:00 Gabapentin (Neurontin) 100 mg TID PO Last administered on 02/19/19at 12:28; Admin Dose 100 MG; Start 02/06/19 at 09:00 Multivitamins Therapeutic (Theragran) 1 tab DAILY PO Last administered on 02/10/19at 08:25; Admin Dose 1 TAB; Start 02/06/19 at 09:00 Miscellaneous Information Patients own medicat... BID@10,16 XX ; Start 02/06/19 at 16:00 Diagnostic Test (Pha) (Accu-Chek) 1 ea 02 XX ; Start 02/07/19 at 02:00 Insulin Aspart (Novolog Insulin Pen) NOVOLOG *MILD* ALGORITHM WITH MEALS BEDTIME SC ; Start 02/06/19 at 18:00 Miscellaneous Information 1 ea NOTE XX ; Start 02/06/19 at 14:30 Glucose (Glutose) 15 gm Q15M PRN PO DECREASED GLUCOSE; Start 02/06/19 at 14:30 Glucose (Glutose) 22.5 gm Q15M PRN PO DECREASED GLUCOSE; Start 02/06/19 at 14:30 Dextrose (D50w Syringe) 25 ml Q15M PRN IV DECREASED GLUCOSE; Start 02/06/19 at 14:30 Dextrose (D50w Syringe) 50 ml Q15M PRN IV DECREASED GLUCOSE; Start 02/06/19 at 14:30 Glucagon (Glucagen) 1 mg Q15M PRN IM DECREASED GLUCOSE; Start 02/06/19 at 14:30 Glucose (Glutose) 15 gm Q15M PRN BUCCAL DECREASED GLUCOSE; Start 02/06/19 at 14:30 Collagenase (Santyl) 1 applic DAILY TOP Last administered on 02/19/19at 08:29; Admin Dose 1 APPLIC; Start 02/06/19 at 18:30 Collagenase (Santyl) 1 applic PRN PRN TOP WHEN SOILED; Start 02/06/19 at 18:30 Lisinopril (Zestril) 40 mg DAILY PO Last administered on 02/13/19at 08:41; Admin Dose 40 MG; Start 02/08/19 at 09:00 Metformin HCl (Glucophage) 1,000 mg WITH BREAKFAST DINNE PO Last administered on 02/19/19 08:35; Admin Dose 1,000 MG; Start 02/07/19 at 18:00 Clotrimazole (Lotrimin Cr) 1 applic BID TOP Last administered on 02/19/19 08:36; Admin Dose 1 APPLIC; Start 02/07/19 at 11:30 Sodium Hypochlorite (Dakins Diluted (40)) 1 applic DAILY TP Last administered on 02/19/19 08:36; Admin Dose 1 APPLIC; Start 02/09/19 at 09:00 Daptomycin 450 mg/ Sodium Chloride 100 ml @ 200 mls/hr Q24H IVPB Last administered on 02/17/19 16:13; Admin Dose 200 MLS/HR; Start 02/10/19 at 16:00; Status Hold Gentamicin Sulfate (Gentamicin Iv Per Pharmacy) GENTAMICIN PER PHARMACY NOTE XX ; Start 02/10/19 at 14:00 Nifedipine (Procardia Xl) 30 mg BID PO Last administered on 02/18/19 20:12; Admin Dose 30 MG; Start 02/11/19 at 15:00 Polyethylene Glycol (Miralax) 17 gm DAILY PO Last administered on 02/12/19 12:40; Admin Dose 17 GM; Start 02/12/19 at 12:30 Famotidine (Pepcid) 20 mg DAILY PO Last administered on 02/19/19 08:29; Admin Dose 20 MG; Start 02/14/19 at 09:00 Metoprolol Tartrate (Lopressor) 100 mg BID PO Last administered on 02/18/19 20:12; Admin Dose 100 MG; Start 02/13/19 at 21:00 Aspirin (Halfprin) 81 mg DAILY PO ; Start 02/14/19 at 09:00 Lactobacillus Acidophilus/ Rhamnosus (Culturelle) 1 cap BID PO Last administered on 02/19/19 08:29; Admin Dose 1 CAP; Start 02/13/19 at 21:00 Enoxaparin Sodium (Lovenox) 40 mg DAILY SC Last administered on 02/14/19 08:19; Admin Dose 40 MG; Start 02/14/19 at 09:00 Nicotine (Nicoderm 14 Mg/ 24hr) 1 patch DAILY PRN TRANSDERM CONTROL WITHDRAWAL SYMPTOMS; Start 02/13/19 at 15:00 Gentamicin Sulfate 360 mg/ Sodium Chloride 109 ml @ 109 mls/hr Q36H IVPB Last administered on 02/17/19at 05:36; Admin Dose 109 MLS/HR; Start 02/14/19 at 06:00; Status Hold Linezolid (Zyvox) 600 mg BID PO Last administered on 02/19/19at 08:29; Admin Dose 600 MG; Start 02/18/19 at 12:00 CHANTALE RAMIREZ NP Feb 19, 2019 15:58
[2019-02-19 19:40] VITALS: BP 174/88; PULSE 69; RESP 19
[2019-02-20] MEDS: ACCU-CHEK XX SCH (01:35)
[2019-02-20 02:00] VITALS: BP 158/75; PULSE 60; RESP 17
[2019-02-20 08:00] VITALS: BP 153/73; PULSE 67; RESP 18
[2019-02-20] MEDS: INSULIN ASPART [NOVOLOG] 3 ML PEN SC SCH ×4 (08:00→20:24)
[2019-02-20] MEDS: CLOTRIMAZOLE 1% 30 GM CR TOP SCH ×2 (08:28→21:00)
[2019-02-20] MEDS: DAKINS 0.0125%(1/40) 473 ML SOLUTION TP SCH (08:28)
[2019-02-20] MEDS: COLLAGENASE 5 GM (UD JAR) TOP SCH (08:28)
[2019-02-20] MEDS: metFORMIN 500 MG TAB PO SCH ×2 (08:30→17:13)
[2019-02-20] MEDS: LACTOBACILLUS RHAMNOSUS CAP PO SCH ×2 (08:30→21:00)
[2019-02-20] MEDS: ZYVOX 600 MG TAB PO SCH ×2 (08:31→20:57)
[2019-02-20] MEDS: GABAPENTIN 100 MG CAP PO SCH ×3 (08:31→21:00)
[2019-02-20] MEDS: FAMOTIDINE 20 MG TAB PO SCH (08:31)
[2019-02-20] MEDS: MULTIVITAMINS THERAPEUTIC TAB PO SCH (08:32)
[2019-02-20] MEDS: POLYETHYLENE GLYCOL 17 GM PACKET PO SCH (08:32)
[2019-02-20] MEDS: ASPIRIN (EC) 81 MG TAB PO SCH (08:32)
[2019-02-20] MEDS: NIFEdipine (XL) 30 MG TAB PO SCH ×2 (08:32→21:00)
[2019-02-20] MEDS: METOPROLOL 100 MG TAB PO SCH ×2 (08:32→21:00)
[2019-02-20] MEDS: ENOXAPARIN 40 MG/0.4 ML SYG SC SCH (08:33)
[2019-02-20] MEDS: ASCORBIC ACID 500 MG TAB PO SCH (08:33)
[2019-02-20] MEDS: LISINOPRIL 20 MG TAB PO SCH (08:33)
--- NOTE | 2019-02-20 12:19 | PN ---
Date/Time of Note Date/Time of Note DATE: 02/20/19 TIME: 12:14 Assessment/Plan VTE Prophylaxis Risk score (from Ns)>0 risk: 6 SCD applied (from Ns): No SCD contraindicated: other Pharmacological prophylaxis: LMWH Lines/Catheters IV Catheter Type (from Nrs): Peripheral IV Urinary Cath still in place: Yes Reason Cath still needed: urinary retention, other (indicate) (monitor I&O) Assessment/Plan Hospital Course 1. Osteomyelitis of the left fifth metatarsal (01/20/2019). - Incompletely treated with IV abx due to noncompliance. - Daptomycin/gentamicin until 02/23/2019, then changed to IV Vanco plus Rocephin 03/22/2019 to complete the course of antibiotics. - continue with ID recommendations 2. Chronic bilateral lower extremity ulcers. - continue wound care 3. Multiple bilateral gluteal wounds. - Continue abx per ID. - Status post debridement on 02/07/2019. 4. Hypertension. - Continue antihypertensives. 5. Diabetes mellitus. - Hemoglobin A1c 6.5. - Continue metformin. - refusing insulin 6. Peripheral neuropathy. - Continue gabapentin. 7. Nicotine use. - Cessation was advised. 9. Debility with contractures. - Wheelchair-bound. - Physical therapy was ordered but patient refusing 10. 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 - willow worker following. 11. Chronic neurogenic bladder. - Chanel cath in place. 12. Noncompliance with medications and medical management. - Compliance was advised 11. Hyperkalemia - kayexalate prn - monitor trend Disposition and plan. Plan for picc line placement. Awaiting outpatient set up with antibiotic treatment. f/u labs Discussed plan of care with Dr. Oleary Result Diagram: 02/19/19 1048 Results 24hrs Laboratory Tests Test 02/19/19 12:29 02/19/19 17:18 02/19/19 21:29 02/20/19 08:27 Bedside Glucose 126 132 133 118 Subjective 24 Hr Interval Summary Free Text/Dictation comfortable at present. no s/s of distress Exam/Review of Systems Exam Vitals Vital Signs Date Temp Pulse Resp B/P (MAP) Pulse Ox O2 O2 Flow FiO2 Time Delivery Rate 02/20/19 97.8 67 18 153/73 99 08:00 (99) 02/18/19 Room Air 13:33 Intake and Output 02/19/19 02/19/19 02/20/19 1515:00 23:00 07:00 IntakeIntake Total 520 ml 200 ml OutputOutput Total 900 ml BalanceBalance 520 ml -700 ml Exam Constitutional: alert, oriented Psych: nl mood/affect Head: normocephalic Respiratory: normal air movement Cardiovascular: other (regular rate ) Gastrointestinal: soft, non-tender Extremities: other (contractures BLE with wounds. ) Neurological: BRICK WASHER II-XII intact, nl mental status, nl speech Results Results 24hrs Laboratory Tests Test 02/19/19 12:29 02/19/19 17:18 02/19/19 21:29 02/20/19 08:27 Bedside Glucose 126 132 133 118 Medications Medication Current Medications IV Flush (NS 3 ml) 3 ml PER PROTOCOL IV Last administered on 02/14/19 08:13; Admin Dose 3 ML; Start 02/06/19 at 05:30 Ondansetron HCl (Zofran Inj) 4 mg Q6H PRN IV NAUSEA/VOMITING; Start 02/06/19 at 05:30 Acetaminophen (Tylenol Tab) 650 mg Q6H PRN PO .PAIN 1-3 OR TEMP Last administered on 02/06/19at 21:57; Admin Dose 650 MG; Start 02/06/19 at 05:30 Acetaminophen/ Hydrocodone Bitart ([place] (5/325)) 1 tab Q6H PRN PO .MOD PAIN 4- 6 Last administered on 02/19/19at 21:40; Admin Dose 1 TAB; Start 02/06/19 at 05:30 Morphine Sulfate (morphine) 2 mg Q4H PRN IV .SEVERE PAIN 7-10; Start 02/06/19 at 05:30 Docusate Sodium (Colace) 100 mg Q12H PRN PO .CONSTIPATION; Start 02/06/19 at 05:30 Magnesium Hydroxide (Milk Of Mag) 30 ml DAILY PRN PO .CONSTIPATION Last admini stered on 02/09/19at 13:58; Admin Dose 30 ML; Start 02/06/19 at 05:30 Lorazepam (Ativan) 0.5 mg Q6H PRN IV ANXIETY; Start 02/06/19 at 05:30 Albuterol/ Ipratropium (Duoneb) 3 ml Q4H RESP THERAPY PRN HHN SHORTNESS OF BREATH; Start 02/06/19 at 05:30 Hydralazine HCl (Apresoline) 10 mg Q6H PRN IV ELEVATED BLOOD PRESSURE Last administered on 02/19/19at 15:26; Admin Dose 10 MG; Start 02/06/19 at 05:30 Clonidine (Catapres) 0.1 mg Q6H PRN PO ELEVATED SYSTOLIC BP Last administered on 02/18/19at 13:40; Admin Dose 0.1 MG; Start 02/06/19 at 05:30 Nitroglycerin (Nitroglycerin (Sl Tab) 0.4 Mg) 1 tab Q5M PRN SL ANGINA; Start 02/06/19 at 05:30 Ascorbic Acid (Vitamin C) 500 mg DAILY PO Last administered on 02/10/19at 08:25; Admin Dose 500 MG; Start 02/06/19 at 09:00 Gabapentin (Neurontin) 100 mg TID PO Last administered on 02/20/19at 08:31; Admin Dose 100 MG; Start 02/06/19 at 09:00 Multivitamins Therapeutic (Theragran) 1 tab DAILY PO Last administered on 02/10/19at 08:25; Admin Dose 1 TAB; Start 02/06/19 at 09:00 Miscellaneous Information Patients own medicat... BID@10,16 XX ; Start 02/06/19 at 16:00 Diagnostic Test (Pha) (Accu-Chek) 1 ea 02 XX ; Start 02/07/19 at 02:00 Insulin Aspart (Novolog Insulin Pen) NOVOLOG *MILD* ALGORITHM WITH MEALS BEDTIME SC ; Start 02/06/19 at 18:00 Miscellaneous Information 1 ea NOTE XX ; Start 02/06/19 at 14:30 Glucose (Glutose) 15 gm Q15M PRN PO DECREASED GLUCOSE; Start 02/06/19 at 14:30 Glucose (Glutose) 22.5 gm Q15M PRN PO DECREASED GLUCOSE; Start 02/06/19 at 14:30 Dextrose (D50w Syringe) 25 ml Q15M PRN IV DECREASED GLUCOSE; Start 02/06/19 at 14:30 Dextrose (D50w Syringe) 50 ml Q15M PRN IV DECREASED GLUCOSE; Start 02/06/19 at 14:30 Glucagon (Glucagen) 1 mg Q15M PRN IM DECREASED GLUCOSE; Start 02/06/19 at 14:30 Glucose (Glutose) 15 gm Q15M PRN BUCCAL DECREASED GLUCOSE; Start 02/06/19 at 14:30 Collagenase (Santyl) 1 applic DAILY TOP Last administered on 02/20/19 08:28; Admin Dose 1 APPLIC; Start 02/06/19 at 18:30 Collagenase (Santyl) 1 applic PRN PRN TOP WHEN SOILED; Start 02/06/19 at 18:30 Lisinopril (Zestril) 40 mg DAILY PO Last administered on 02/13/19 08:41; Admin Dose 40 MG; Start 02/08/19 at 09:00 Metformin HCl (Glucophage) 1,000 mg WITH BREAKFAST DINNE PO Last administered on 02/20/19 08:30; Admin Dose 1,000 MG; Start 02/07/19 at 18:00 Clotrimazole (Lotrimin Cr) 1 applic BID TOP Last administered on 02/20/19 08:28; Admin Dose 1 APPLIC; Start 02/07/19 at 11:30 Sodium Hypochlorite (Dakins Diluted (1/40)) 1 applic DAILY TP Last administered on 02/20/19 08:28; Admin Dose 1 APPLIC; Start 02/09/19 at 09:00 Daptomycin 450 mg/ Sodium Chloride 100 ml @ 200 mls/hr Q24H IVPB Last administered on 02/17/19 16:13; Admin Dose 200 MLS/HR; Start 02/10/19 at 16:00; Status Hold Gentamicin Sulfate (Gentamicin Iv Per Pharmacy) GENTAMICIN PER PHARMACY NOTE XX ; Start 02/10/19 at 14:00 Nifedipine (Procardia Xl) 30 mg BID PO Last administered on 02/19/19 21:31; Admin Dose 30 MG; Start 02/11/19 at 15:00 Polyethylene Glycol (Miralax) 17 gm DAILY PO Last administered on 02/12/19 12:40; Admin Dose 17 GM; Start 02/12/19 at 12:30 Famotidine (Pepcid) 20 mg DAILY PO Last administered on 02/20/19 08:31; Admin Dose 20 MG; Start 02/14/19 at 09:00 Metoprolol Tartrate (Lopressor) 100 mg BID PO Last administered on 02/19/19 21:31; Admin Dose 100 MG; Start 02/13/19 at 21:00 Aspirin (Halfprin) 81 mg DAILY PO ; Start 02/14/19 at 09:00 Lactobacillus Acidophilus/ Rhamnosus (Culturelle) 1 cap BID PO Last administered on 02/20/19at 08:30; Admin Dose 1 CAP; Start 02/13/19 at 21:00 Enoxaparin Sodium (Lovenox) 40 mg DAILY SC Last administered on 02/14/19at 08:19; Admin Dose 40 MG; Start 02/14/19 at 09:00 Nicotine (Nicoderm 14 Mg/ 24hr) 1 patch DAILY PRN TRANSDERM CONTROL WITHDRAWAL SYMPTOMS; Start 02/13/19 at 15:00 Gentamicin Sulfate 360 mg/ Sodium Chloride 109 ml @ 109 mls/hr Q36H IVPB Last administered on 02/17/19at 05:36; Admin Dose 109 MLS/HR; Start 02/14/19 at 06:00; Status Hold Linezolid (Zyvox) 600 mg BID PO Last administered on 02/20/19at 08:31; Admin Dose 600 MG; Start 02/18/19 at 12:00 SONAL SCHROEDER NP Feb 20, 2019 12:19
[2019-02-20] MEDS: HYDROCODONE/APAP (5/325) TAB PO PRN (12:32)
--- NOTE | 2019-02-20 13:45 | CONS ---
Assessment/Plan Assessment/Plan Hospital Course (Demo Recall) Patient is status post PICC line placed, he is awake looks comfortable in no distress no fevers overnight Left and right buttock wounds grew MRSA, Pseudomonas, Enterococcus, Corynebacterium group JK Blood culture on admission grew staph species 1 out of 2 sets Antimicrobials: PO Zyvox ALLERGIES: HE IS NOT ALLERGIC TO ANY ANTIBIOTICS. PHYSICAL EXAMINATION: GENERAL: Well-developed elderly -[place] man who is in no distress. HEENT: Head is atraumatic, normocephalic. Sclerae are anicteric. Buccal mucosa is dry. NECK: Supple. CHEST: Rise symmetrical. Breath sounds diminished to bases. HEART: S1, S2. ABDOMEN: Soft. Bowel tones are present. EXTREMITIES: With bilateral lower extremities dressing intact. Assessment: 1. Bilateral lower extremities diabetic ulcerations 2. Left foot osteomyelitis 3. Diabetes with diabetic neuropathy 4. Bilateral buttocks ulcerations, status post debridement 5. Coag negative staph bacteremia consistent with contaminant 6. Noncompliance Plan: Patient is stable, resume gentamicin, continue antibiotics as per our previous recommendations on 02/18/19 Consultation Date/Type/Reason Admit Date/Time Feb 06, 2019 at 03:18 Initial Consult Date 02/07/19 Type of Consult id Requesting Provider: MASOUD SOLANO DPM Date/Time of Note DATE: 02/20/19 TIME: 13:44 Exam/Review of Systems Exam Vitals Vital Signs Date Temp Pulse Resp B/P (MAP) Pulse Ox O2 O2 Flow FiO2 Time Delivery Rate 02/20/19 97.8 67 18 153/73 99 08:00 (99) 02/18/19 Room Air 13:33 Intake and Output 02/19/19 02/19/19 02/20/19 1515:00 23:00 07:00 IntakeIntake Total 520 ml 200 ml OutputOutput Total 900 ml BalanceBalance 520 ml -700 ml Results Result Diagram: 02/19/19 1048 Results 24hrs Laboratory Tests Test 02/19/19 17:18 02/19/19 21:29 02/20/19 08:27 02/20/19 12:27 Bedside Glucose 132 133 118 120 Medications Medication Current Medications IV Flush (NS 3 ml) 3 ml PER PROTOCOL IV Last administered on 02/14/19at 08:13; Admin Dose 3 ML; Start 02/06/19 at 05:30 Ondansetron HCl (Zofran Inj) 4 mg Q6H PRN IV NAUSEA/VOMITING; Start 02/06/19 at 05:30 Acetaminophen (Tylenol Tab) 650 mg Q6H PRN PO .PAIN 1-3 OR TEMP Last administered on 02/06/19at 21:57; Admin Dose 650 MG; Start 02/06/19 at 05:30 Acetaminophen/ Hydrocodone Bitart ([place] (5/325)) 1 tab Q6H PRN PO .MOD PAIN 4- 6 Last administered on 02/20/19at 12:32; Admin Dose 1 TAB; Start 02/06/19 at 05:30 Morphine Sulfate (morphine) 2 mg Q4H PRN IV .SEVERE PAIN 7-10; Start 02/06/19 at 05:30 Docusate Sodium (Colace) 100 mg Q12H PRN PO .CONSTIPATION; Start 02/06/19 at 05:30 Magnesium Hydroxide (Milk Of Mag) 30 ml DAILY PRN PO .CONSTIPATION Last administered on 02/09/19at 13:58; Admin Dose 30 ML; Start 02/06/19 at 05:30 Lorazepam (Ativan) 0.5 mg Q6H PRN IV ANXIETY; Start 02/06/19 at 05:30 Albuterol/ Ipratropium (Duoneb) 3 ml Q4H RESP THERAPY PRN HHN SHORTNESS OF BREATH; Start 02/06/19 at 05:30 Hydralazine HCl (Apresoline) 10 mg Q6H PRN IV ELEVATED BLOOD PRESSURE Last administered on 02/19/19at 15:26; Admin Dose 10 MG; Start 02/06/19 at 05:30 Clonidine (Catapres) 0.1 mg Q6H PRN PO ELEVATED SYSTOLIC BP Last administered on 02/18/19at 13:40; Admin Dose 0.1 MG; Start 02/06/19 at 05:30 Nitroglycerin (Nitroglycerin (Sl Tab) 0.4 Mg) 1 tab Q5M PRN SL ANGINA; Start 02/06/19 at 05:30 Ascorbic Acid (Vitamin C) 500 mg DAILY PO Last administered on 02/10/19 08:25; Admin Dose 500 MG; Start 02/06/19 at 09:00 Gabapentin (Neurontin) 100 mg TID PO Last administered on 02/20/19at 12:27; Admin Dose 100 MG; Start 02/06/19 at 09:00 Multivitamins Therapeutic (Theragran) 1 tab DAILY PO Last administered on 02/10/19at 08:25; Admin Dose 1 TAB; Start 02/06/19 at 09:00 Miscellaneous Information Patients own medicat... BID@10,16 XX ; Start 02/06/19 at 16:00 Diagnostic Test (Pha) (Accu-Chek) 1 ea 02 XX ; Start 02/07/19 at 02:00 Insulin Aspart (Novolog Insulin Pen) NOVOLOG *MILD* ALGORITHM WITH MEALS BEDTIME SC ; Start 02/06/19 at 18:00 Miscellaneous Information 1 ea NOTE XX ; Start 02/06/19 at 14:30 Glucose (Glutose) 15 gm Q15M PRN PO DECREASED GLUCOSE; Start 02/06/19 at 14:30 Glucose (Glutose) 22.5 gm Q15M PRN PO DECREASED GLUCOSE; Start 02/06/19 at 14:30 Dextrose (D50w Syringe) 25 ml Q15M PRN IV DECREASED GLUCOSE; Start 02/06/19 at 14:30 Dextrose (D50w Syringe) 50 ml Q15M PRN IV DECREASED GLUCOSE; Start 02/06/19 at 14:30 Glucagon (Glucagen) 1 mg Q15M PRN IM DECREASED GLUCOSE; Start 02/06/19 at 14:30 Glucose (Glutose) 15 gm Q15M PRN BUCCAL DECREASED GLUCOSE; Start 02/06/19 at 14:30 Collagenase (Santyl) 1 applic DAILY TOP Last administered on 02/20/19at 08:28; Admin Dose 1 APPLIC; Start 02/06/19 at 18:30 Collagenase (Santyl) 1 applic PRN PRN TOP WHEN SOILED; Start 02/06/19 at 18:30 Lisinopril (Zestril) 40 mg DAILY PO Last administered on 02/13/19at 08:41; Admin Dose 40 MG; Start 02/08/19 at 09:00 Metformin HCl (Glucophage) 1,000 mg WITH BREAKFAST DINNE PO Last administered on 02/20/19at 08:30; Admin Dose 1,000 MG; Start 02/07/19 at 18:00 Clotrimazole (Lotrimin Cr) 1 applic BID TOP Last administered on 02/20/19 08:28; Admin Dose 1 APPLIC; Start 02/07/19 at 11:30 Sodium Hypochlorite (Dakins Diluted ()) 1 applic DAILY TP Last administered on 02/20/19at 08:28; Admin Dose 1 APPLIC; Start 02/09/19 at 09:00 Gentamicin Sulfate (Gentamicin Iv Per Pharmacy) GENTAMICIN PER PHARMACY NOTE XX ; Start 02/10/19 at 14:00 Nifedipine (Procardia Xl) 30 mg BID PO Last administered on 02/19/19 21:31; Admin Dose 30 MG; Start 02/11/19 at 15:00 Polyethylene Glycol (Miralax) 17 gm DAILY PO Last administered on 02/12/19 12:40; Admin Dose 17 GM; Start 02/12/19 at 12:30 Famotidine (Pepcid) 20 mg DAILY PO Last administered on 02/20/19 08:31; Admin Dose 20 MG; Start 02/14/19 at 09:00 Metoprolol Tartrate (Lopressor) 100 mg BID PO Last administered on 02/19/19 21:31; Admin Dose 100 MG; Start 02/13/19 at 21:00 Aspirin (Halfprin) 81 mg DAILY PO ; Start 02/14/19 at 09:00 Lactobacillus Acidophilus/ Rhamnosus (Culturelle) 1 cap BID PO Last administered on 02/20/19at 08:30; Admin Dose 1 CAP; Start 02/13/19 at 21:00 Enoxaparin Sodium (Lovenox) 40 mg DAILY SC Last administered on 02/14/19 08:19; Admin Dose 40 MG; Start 02/14/19 at 09:00 Nicotine (Nicoderm 14 Mg/ 24hr) 1 patch DAILY PRN TRANSDERM CONTROL WITHDRAWAL SYMPTOMS; Start 02/13/19 at 15:00 Gentamicin Sulfate 360 mg/ Sodium Chloride 109 ml @ 109 mls/hr Q36H IVPB Last administered on 02/17/19at 05:36; Admin Dose 109 MLS/HR; Start 02/14/19 at 06:00; Status Hold Linezolid (Zyvox) 600 mg BID PO Last administered on 02/20/19 08:31; Admin Dose 600 MG; Start 02/18/19 at 12:00 IV Flush (NS 10 ml) 10 ml PRN PRN IV IV PROTOCOL; Start 02/20/19 at 12:30 CHANTALE RAMIREZ NP Feb 20, 2019 13:45
[2019-02-20 14:00] VITALS: BP_SYST 159; BP_SYST 206; BP_DIAS 81; BP_DIAS 98; PULSE 70; PULSE 72; RESP 18
--- NOTE | 2019-02-20 15:07 | PN ---
Date/Time of Note Date/Time of Note DATE: 02/20/19 TIME: 15:05 Assessment/Plan Lines/Catheters IV Catheter Type (from [facility]): Peripheral IV Chanel in Place (from [facility]): Yes Assessment/Plan Chief Complaint/Hosp Course 1. Multiple wounds s/p debridement of bilat buttock 02/07/19 healing well -further debridement prn -Continue local care> w dakins -frequent turning and off-loading -low air loss mattress -vitamin c -short term zinc -optimize nutrition -bilateral LE wounds: per podiatry 2. Osteomyelitis BLE s/p iv abx per ID -placement pending 3. Hypertension -nutrition and medication management 4. Diabetes: hga1c: 6.5 -nutrition and medication management 5. Diabetic neuropathy -safety precs (ensure no lines/tubes, etc on skin) -diabetes optimization 6. Hypochromic anemia -monitor and tx as needed 7. Depression -psych optimization 8. Hypocalcemia: likely multifactorial -nutrition optimization -treat infections 9. 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 Patient seen and examined in collaboration with Dr. Kj Moran Subjective 24 Hr Interval Summary Wounds healing. No fevers, chills, sob, congested cough, cp, palpitations, koch, dizziness, n/v/d/dysuria. Exam/Review of Systems Vital Signs Vitals Vital Signs Date Temp Pulse Resp B/P (MAP) Pulse Ox O2 O2 Flow FiO2 Time Delivery Rate 02/20/19 97.8 67 18 153/73 99 08:00 (99) 02/18/19 Room Air 13:33 Intake and Output 02/19/19 02/19/19 02/20/19 1515:00 23:00 07:00 IntakeIntake Total 520 ml 200 ml OutputOutput Total 900 ml BalanceBalance 520 ml -700 ml Exam Free Text/Dictation Constitutional: alert, oriented, well developed Psych: nl mood/affect, labile Head: normocephalic, atraumatic Eyes: nl conjunctiva, EOMI, nl lids, nl sclera ENMT: nl external ears & nose, nl lips & teeth, mucosa pink and moist Neck: supple, non-tender; No jvd Respiratory: normal air movement; No congested cough Cardiovascular: regular rate and rhythm, nl pulses; No edema Gastrointestinal: soft, non-tender Genitourinary - Male: nl penis, nl scrotum Musculoskeletal: nl extremities to inspection, other (contracted BLE) Extremities: normal pulses; No pitting pedal edema Neurological: nl mental status, nl speech, nl strength Skin: other (multiple wounds: bilat buttock: clean, no periwound erythema, scant drainage); BLE: wounds: dry No rash or lesions Lymph: No nl lymph nodes Results Result Diagram: 02/19/19 1048 CALLY NOEL NP Feb 20, 2019 15:07
[2019-02-20] MEDS: hydrALAzine 20 MG INJ IV PRN ×2 (15:15→20:57)
[2019-02-20 20:53] VITALS: BP 191/91; PULSE 72; RESP 18
[2019-02-20] MEDS: GENTAMICIN 360 MG in SOD CHLORIDE 0.9% 100 ML IVPB SCH (20:57)
[2019-02-21] MEDS: ACCU-CHEK XX SCH (01:58)
[2019-02-21] MEDS: INSULIN ASPART [NOVOLOG] 3 ML PEN SC SCH ×4 (08:00→20:36)
[2019-02-21 08:01] VITALS: BP 192/91; PULSE 88; RESP 18
[2019-02-21] MEDS: ZYVOX 600 MG TAB PO SCH ×2 (08:13→20:35)
[2019-02-21] MEDS: NIFEdipine (XL) 30 MG TAB PO SCH ×2 (08:13→20:36)
[2019-02-21] MEDS: METOPROLOL 100 MG TAB PO SCH ×2 (08:13→20:36)
[2019-02-21] MEDS: LISINOPRIL 20 MG TAB PO SCH (08:13)
[2019-02-21] MEDS: GABAPENTIN 100 MG CAP PO SCH ×3 (08:13→20:35)
[2019-02-21] MEDS: metFORMIN 500 MG TAB PO SCH ×2 (08:14→17:18)
[2019-02-21] MEDS: COLLAGENASE 5 GM (UD JAR) TOP SCH (08:16)
[2019-02-21] MEDS: DAKINS 0.0125%(1/40) 473 ML SOLUTION TP SCH (08:16)
[2019-02-21] MEDS: CLOTRIMAZOLE 1% 30 GM CR TOP SCH ×2 (08:17→21:00)
[2019-02-21] MEDS: LACTOBACILLUS RHAMNOSUS CAP PO SCH ×3 (08:20→20:35)
[2019-02-21] MEDS: ENOXAPARIN 40 MG/0.4 ML SYG SC SCH (08:21)
[2019-02-21] MEDS: FAMOTIDINE 20 MG TAB PO SCH (08:21)
[2019-02-21] MEDS: ASPIRIN (EC) 81 MG TAB PO SCH (08:21)
[2019-02-21] MEDS: POLYETHYLENE GLYCOL 17 GM PACKET PO SCH (08:21)
[2019-02-21] MEDS: MULTIVITAMINS THERAPEUTIC TAB PO SCH (08:21)
[2019-02-21] MEDS: ASCORBIC ACID 500 MG TAB PO SCH (08:25)
[2019-02-21] MEDS: SOD CHLORIDE 0.9% 1,000 ML IV SCH (10:34)
--- NOTE | 2019-02-21 11:22 | PN ---
Date/Time of Note Date/Time of Note DATE: 02/21/19 TIME: 11:20 Assessment/Plan Lines/Catheters IV Catheter Type (from Nrs): PICC Line Chanel in Place (from Nrs): Yes Assessment/Plan Chief Complaint/Hosp Course 1. Multiple wounds s/p debridement of bilat buttock 02/07/19 healing well -further debridement prn -Continue local care> same treatment -frequent turning and off-loading -low air loss mattress -vitamin c -short term zinc -optimize nutrition -bilateral LE wounds: per podiatry 2. Osteomyelitis BLE s/p iv abx per ID -placement pending 3. Hypertension -nutrition and medication management 4. Diabetes: hga1c: 6.5 -nutrition and medication management 5. Diabetic neuropathy -safety precs (ensure no lines/tubes, etc on skin) -diabetes optimization 6. Hypochromic anemia -monitor and tx as needed 7. Depression -psych optimization 8. Hypocalcemia: likely multifactorial -nutrition optimization -treat infections 9. 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 Patient seen and examined in collaboration with Dr. Kj Moran Subjective 24 Hr Interval Summary BP continues to be high. Intermittently refusing medications. No fevers, chills, sob, congested cough, cp, palpitations, koch, dizziness, nausea, vomiting, diarrhea, dysuria. Exam/Review of Systems Vital Signs Vitals Vital Signs Date Temp Pulse Resp B/P (MAP) Pulse Ox O2 O2 Flow FiO2 Time Delivery Rate 02/21/19 98.0 88 18 192/91 97 Room Air 08:01 (124) Intake and Output 02/20/19 02/20/19 02/21/19 1515:00 23:00 07:00 IntakeIntake Total 820 ml 200 ml 150 ml OutputOutput Total 500 ml 800 ml 400 ml BalanceBalance 320 ml -600 ml -250 ml Exam Free Text/Dictation Constitutional: alert, oriented, well developed Psych: nl mood/affect, labile Head: normocephalic, atraumatic Eyes: nl conjunctiva, EOMI, nl lids, nl sclera ENMT: nl external ears & nose, nl lips & teeth, mucosa pink and moist Neck: supple, non-tender; No jvd Respiratory: normal air movement; No congested cough Cardiovascular: regular rate and rhythm, nl pulses; No edema Gastrointestinal: soft, non-tender Genitourinary - Male: nl penis, nl scrotum Musculoskeletal: nl extremities to inspection, other (contracted BLE) Extremities: normal pulses; No pitting pedal edema Neurological: nl mental status, nl speech, nl strength Skin: other (multiple wounds: bilat buttock: clean, no periwound erythema, scant drainage); BLE: wounds: dry No rash or lesions Lymph: No nl lymph nodes Results Result Diagram: 02/21/19 0802 CALLY NOEL NP Feb 21, 2019 11:21
--- NOTE | 2019-02-21 11:43 | CONS ---
Assessment/Plan Assessment/Plan Hospital Course (Demo Recall) All noted, had been noncompliant, no fevers nad Left and right buttock wounds grew MRSA, Pseudomonas, Enterococcus, Corynebacterium group JK Blood culture on admission grew staph species 1 out of 2 sets Antimicrobials: PO Zyvox, Gentamicin ALLERGIES: HE IS NOT ALLERGIC TO ANY ANTIBIOTICS. PHYSICAL EXAMINATION: GENERAL: Well-developed elderly -Russian man who is in no distress. HEENT: Head is atraumatic, normocephalic. Sclerae are anicteric. Buccal mucosa is dry. NECK: Supple. CHEST: Rise symmetrical. Breath sounds diminished to bases. HEART: S1, S2. ABDOMEN: Soft. Bowel tones are present. EXTREMITIES: With bilateral lower extremities dressing intact. Assessment: 1. Bilateral lower extremities diabetic ulcerations 2. Left foot osteomyelitis 3. Diabetes with diabetic neuropathy 4. Bilateral buttocks ulcerations, status post debridement 5. Coag negative staph bacteremia consistent with contaminant 6. Noncompliance Plan: Patient is stable, resume gentamicin, continue antibiotics as per our previous recommendations on 02/18/19, Bun/Cr in am Consultation Date/Type/Reason Admit Date/Time Feb 06, 2019 at 03:18 Initial Consult Date 02/07/19 Type of Consult id Requesting Provider: MASOUD SOLANO DPM Date/Time of Note DATE: 02/21/19 TIME: 11:43 Exam/Review of Systems Exam Vitals Vital Signs Date Temp Pulse Resp B/P (MAP) Pulse Ox O2 O2 Flow FiO2 Time Delivery Rate 02/21/19 98.0 88 18 192/91 97 Room Air 08:01 (124) Intake and Output 02/20/19 02/20/19 02/21/19 1515:00 23:00 07:00 IntakeIntake Total 820 ml 200 ml 150 ml OutputOutput Total 500 ml 800 ml 400 ml BalanceBalance 320 ml -600 ml -250 ml Results Result Diagram: 02/21/19 0802 Results 24hrs Laboratory Tests Test 02/20/19 12:27 02/20/19 15:22 02/20/19 17:08 02/20/19 20:20 Bedside Glucose 120 85 120 Sodium Level 138 Potassium Level 4.4 Chloride Level 106 Carbon Dioxide Level 26 Anion Gap 6 Blood Urea Nitrogen 27 H Creatinine 1.02 Est Glomerular > 60 Filtrat Rate mL/min Glucose Level 95 # Calcium Level 8.7 Test 02/21/19 08:01 02/21/19 08:02 Bedside Glucose 100 Sodium Level 141 Potassium Level 4.7 Chloride Level 106 Carbon Dioxide Level 25 Anion Gap 10 Blood Urea Nitrogen 36 H Creatinine 1.34 H Est Glomerular > 60 Filtrat Rate mL/min Glucose Level 103 Calcium Level 9.1 Medications Medication Current Medications IV Flush (NS 3 ml) 3 ml PER PROTOCOL IV Last administered on 02/14/19 08:13; Admin Dose 3 ML; Start 02/06/19 at 05:30 Ondansetron HCl (Zofran Inj) 4 mg Q6H PRN IV NAUSEA/VOMITING; Start 02/06/19 at 05:30 Acetaminophen (Tylenol Tab) 650 mg Q6H PRN PO .PAIN 1-3 OR TEMP Last administered on 02/06/19at 21:57; Admin Dose 650 MG; Start 02/06/19 at 05:30 Acetaminophen/ Hydrocodone Bitart ([place] (5/325)) 1 tab Q6H PRN PO .MOD PAIN 4- 6 Last administered on 02/20/19at 12:32; Admin Dose 1 TAB; Start 02/06/19 at 05:30 Morphine Sulfate (morphine) 2 mg Q4H PRN IV .SEVERE PAIN 7-10; Start 02/06/19 at 05:30 Docusate Sodium (Colace) 100 mg Q12H PRN PO .CONSTIPATION; Start 02/06/19 at 05:30 Magnesium Hydroxide (Milk Of Mag) 30 ml DAILY PRN PO .CONSTIPATION Last administered on 02/09/19at 13:58; Admin Dose 30 ML; Start 02/06/19 at 05:30 Lorazepam (Ativan) 0.5 mg Q6H PRN IV ANXIETY; Start 02/06/19 at 05:30 Albuterol/ Ipratropium (Duoneb) 3 ml Q4H RESP THERAPY PRN HHN SHORTNESS OF BREATH; Start 02/06/19 at 05:30 Hydralazine HCl (Apresoline) 10 mg Q6H PRN IV ELEVATED BLOOD PRESSURE Last administered on 02/20/19at 20:57; Admin Dose 10 MG; Start 02/06/19 at 05:30 Clonidine (Catapres) 0.1 mg Q6H PRN PO ELEVATED SYSTOLIC BP Last administered on 02/18/19at 13:40; Admin Dose 0.1 MG; Start 02/06/19 at 05:30 Nitroglycerin (Nitroglycerin (Sl Tab) 0.4 Mg) 1 tab Q5M PRN SL ANGINA; Start 02/06/19 at 05:30 Ascorbic Acid (Vitamin C) 500 mg DAILY PO Last administered on 02/10/19at 08:25; Admin Dose 500 MG; Start 02/06/19 at 09:00 Gabapentin (Neurontin) 100 mg TID PO Last administered on 02/21/19at 08:13; Admin Dose 100 MG; Start 02/06/19 at 09:00 Multivitamins Therapeutic (Theragran) 1 tab DAILY PO Last administered on 02/10/19at 08:25; Admin Dose 1 TAB; Start 02/06/19 at 09:00 Miscellaneous Information Patients own medicat... BID@10,16 XX ; Start 02/06/19 at 16:00 Diagnostic Test (Pha) (Accu-Chek) 1 ea 02 XX ; Start 02/07/19 at 02:00 Insulin Aspart (Novolog Insulin Pen) NOVOLOG *MILD* ALGORITHM WITH MEALS BEDTIME SC ; Start 02/06/19 at 18:00 Miscellaneous Information 1 ea NOTE XX ; Start 02/06/19 at 14:30 Glucose (Glutose) 15 gm Q15M PRN PO DECREASED GLUCOSE; Start 02/06/19 at 14:30 Glucose (Glutose) 22.5 gm Q15M PRN PO DECREASED GLUCOSE; Start 02/06/19 at 14:30 Dextrose (D50w Syringe) 25 ml Q15M PRN IV DECREASED GLUCOSE; Start 02/06/19 at 14:30 Dextrose (D50w Syringe) 50 ml Q15M PRN IV DECREASED GLUCOSE; Start 02/06/19 at 14:30 Glucagon (Glucagen) 1 mg Q15M PRN IM DECREASED GLUCOSE; Start 02/06/19 at 14:30 Glucose (Glutose) 15 gm Q15M PRN BUCCAL DECREASED GLUCOSE; Start 02/06/19 at 14:30 Collagenase (Santyl) 1 applic DAILY TOP Last administered on 02/21/19at 08:16; Admin Dose 1 APPLIC; Start 02/06/19 at 18:30 Collagenase (Santyl) 1 applic PRN PRN TOP WHEN SOILED; Start 02/06/19 at 18:30 Lisinopril (Zestril) 40 mg DAILY PO Last administered on 02/21/19 08:13; Admin Dose 40 MG; Start 02/08/19 at 09:00 Metformin HCl (Glucophage) 1,000 mg WITH BREAKFAST DINNE PO Last administered on 02/21/19 08:14; Admin Dose 1,000 MG; Start 02/07/19 at 18:00 Clotrimazole (Lotrimin Cr) 1 applic BID TOP Last administered on 02/21/19 08:17; Admin Dose 1 APPLIC; Start 02/07/19 at 11:30 Sodium Hypochlorite (Dakins Diluted ()) 1 applic DAILY TP Last administered on 02/21/19 08:16; Admin Dose 1 APPLIC; Start 02/09/19 at 09:00 Gentamicin Sulfate (Gentamicin Iv Per Pharmacy) GENTAMICIN PER PHARMACY NOTE XX ; Start 02/10/19 at 14:00 Nifedipine (Procardia Xl) 30 mg BID PO Last administered on 02/21/19at 08:13; Admin Dose 30 MG; Start 02/11/19 at 15:00 Polyethylene Glycol (Miralax) 17 gm DAILY PO Last administered on 02/12/19at 12:40; Admin Dose 17 GM; Start 02/12/19 at 12:30 Famotidine (Pepcid) 20 mg DAILY PO Last administered on 02/20/19 08:31; Admin Dose 20 MG; Start 02/14/19 at 09:00 Metoprolol Tartrate (Lopressor) 100 mg BID PO Last administered on 02/21/19at 08:13; Admin Dose 100 MG; Start 02/13/19 at 21:00 Aspirin (Halfprin) 81 mg DAILY PO ; Start 02/14/19 at 09:00 Lactobacillus Acidophilus/ Rhamnosus (Culturelle) 1 cap BID PO Last ad ministered on 02/20/19 08:30; Admin Dose 1 CAP; Start 02/13/19 at 21:00 Enoxaparin Sodium (Lovenox) 40 mg DAILY SC Last administered on 02/14/19 08:19; Admin Dose 40 MG; Start 02/14/19 at 09:00 Nicotine (Nicoderm 14 Mg/ 24hr) 1 patch DAILY PRN TRANSDERM CONTROL WITHDRAWAL SYMPTOMS; Start 02/13/19 at 15:00 Linezolid (Zyvox) 600 mg BID PO Last administered on 02/21/19at 08:13; Admin Dose 600 MG; Start 02/18/19 at 12:00 IV Flush (NS 10 ml) 10 ml PRN PRN IV IV PROTOCOL; Start 02/20/19 at 12:30 Gentamicin Sulfate 360 mg/ Sodium Chloride 109 ml @ 109 mls/hr Q36H IVPB Last administered on 02/20/19at 20:57; Admin Dose 109 MLS/HR; Start 02/20/19 at 20:00 Sodium Chloride 1,000 ml @ 70 mls/hr [id number] IV Last administered on 02/21/19at 10:34; Admin Dose 70 MLS/HR; Start 02/21/19 at 09:30 CHANTALE RAMIREZ NP Feb 21, 2019 11:43
[2019-02-21 14:00] VITALS: BP 188/87; PULSE 80; RESP 18
--- NOTE | 2019-02-21 14:51 | PN ---
Date/Time of Note Date/Time of Note DATE: 02/21/19 TIME: 14:49 Assessment/Plan VTE Prophylaxis Risk score (from Ns)>0 risk: 8 SCD applied (from Ns): No SCD contraindicated: other Pharmacological prophylaxis: LMWH Lines/Catheters IV C[facility]ter Type (from [facility] PICC Line Central line still needed: Yes Urinary Cath still in place: Yes Reason Cath still needed: other (indicate) (monitor I&O) Assessment/Plan Hospital Course 1. Osteomyelitis of the left fifth metatarsal (01/20/2019). - Incompletely treated with IV abx due to noncompliance. - Daptomycin/gentamicin until 02/23/2019, then changed to IV Vanco plus Rocephin 03/22/2019 to complete the course of antibiotics. - continue with ID recommendations 2. Chronic bilateral lower extremity ulcers. - continue wound care 3. Multiple bilateral gluteal wounds. - Continue abx per ID. - Status post debridement on 02/07/2019. 4. Hypertension. - Continue antihypertensives. 5. Diabetes mellitus. - Hemoglobin A1c 6.5. - Continue metformin. - refusing insulin 6. Peripheral neuropathy. - Continue gabapentin. 7. Nicotine use. - Cessation was advised. 9. Debility with contractures. - Wheelchair-bound. - Physical therapy was ordered but patient refusing 10. 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 - community mental health worker following. 11. Chronic neurogenic bladder. - Chanel cath in place. 12. Noncompliance with medications and medical management. - Compliance was advised 11. Hyperkalemia - kayexalate prn - monitor trend 12. zurdo - start hydration Disposition and plan. ivf added. monitor renal panel. continue supportive care. d/c process ongoing. awaiting accepting snf Discussed plan of care with Dr. Oleary Result Diagram: 02/21/19 0802 Results 24hrs Laboratory Tests Test 02/20/19 15:22 02/20/19 17:08 02/20/19 20:20 02/21/19 08:01 Sodium Level 138 Potassium Level 4.4 Chloride Level 106 Carbon Dioxide Level 26 Anion Gap 6 Blood Urea Nitrogen 27 H Creatinine 1.02 Est Glomerular > 60 Filtrat Rate mL/min Glucose Level 95 # Calcium Level 8.7 Bedside Glucose 85 120 100 Test 02/21/19 08:02 02/21/19 12:32 Sodium Level 141 Potassium Level 4.7 Chloride Level 106 Carbon Dioxide Level 25 Anion Gap 10 Blood Urea Nitrogen 36 H Creatinine 1.34 H Est Glomerular > 60 Filtrat Rate mL/min Glucose Level 103 Calcium Level 9.1 Bedside Glucose 116 Subjective 24 Hr Interval Summary Free Text/Dictation resting. no specific complaints during visit Exam/Review of Systems Exam Vitals Vital Signs Date Temp Pulse Resp B/P (MAP) Pulse Ox O2 O2 Flow FiO2 Time Delivery Rate 02/21/19 98.0 88 18 192/91 97 Room Air 08:01 (124) Intake and Output 02/20/19 02/20/19 02/21/19 1515:00 23:00 07:00 IntakeIntake Total 820 ml 200 ml 150 ml OutputOutput Total 500 ml 800 ml 400 ml BalanceBalance 320 ml -600 ml -250 ml Exam Constitutional: alert, oriented Psych: nl mood/affect Head: normocephalic Respiratory: normal air movement Cardiovascular: other (regular rate ) Gastrointestinal: soft, non-tender Extremities: other (contractures BLE with wounds. ) Neurological: QA TESTER II-XII intact, nl mental status, nl speech Results Results 24hrs Laboratory Tests Test 02/20/19 15:22 02/20/19 17:08 02/20/19 20:20 02/21/19 08:01 Sodium Level 138 Potassium Level 4.4 Chloride Level 106 Carbon Dioxide Level 26 Anion Gap 6 Blood Urea Nitrogen 27 H Creatinine 1.02 Est Glomerular > 60 Filtrat Rate mL/min Glucose Level 95 # Calcium Level 8.7 Bedside Glucose 85 120 100 Test 02/21/19 08:02 02/21/19 12:32 Sodium Level 141 Potassium Level 4.7 Chloride Level 106 Carbon Dioxide Level 25 Anion Gap 10 Blood Urea Nitrogen 36 H Creatinine 1.34 H Est Glomerular > 60 Filtrat Rate mL/min Glucose Level 103 Calcium Level 9.1 Bedside Glucose 116 Medications Medication Current Medications IV Flush (NS 3 ml) 3 ml PER PROTOCOL IV Last administered on 02/14/19at 08:13; Admin Dose 3 ML; Start 02/06/19 at 05:30 Ondansetron HCl (Zofran Inj) 4 mg Q6H PRN IV NAUSEA/VOMITING; Start 02/06/19 at 05:30 Acetaminophen (Tylenol Tab) 650 mg Q6H PRN PO .PAIN 1-3 OR TEMP Last administered on 02/06/19 21:57; Admin Dose 650 MG; Start 02/06/19 at 05:30 Acetaminophen/ Hydrocodone Bitart ([place] (5/325)) 1 tab Q6H PRN PO .MOD PAIN 4- 6 Last administered on 02/20/19at 12:32; Admin Dose 1 TAB; Start 02/06/19 at 05:30 Morphine Sulfate (morphine) 2 mg Q4H PRN IV .SEVERE PAIN 7-10; Start 02/06/19 at 05:30 Docusate Sodium (Colace) 100 mg Q12H PRN PO .CONSTIPATION; Start 02/06/19 at 05:30 Magnesium Hydroxide (Milk Of Mag) 30 ml DAILY PRN PO .CONSTIPATION Last administered on 02/09/19 13:58; Admin Dose 30 ML; Start 02/06/19 at 05:30 Lorazepam (Ativan) 0.5 mg Q6H PRN IV ANXIETY; Start 02/06/19 at 05:30 Albuterol/ Ipratropium (Duoneb) 3 ml Q4H RESP THERAPY PRN HHN SHORTNESS OF BREATH; Start 02/06/19 at 05:30 Hydralazine HCl (Apresoline) 10 mg Q6H PRN IV ELEVATED BLOOD PRESSURE Last administered on 02/20/19 20:57; Admin Dose 10 MG; Start 02/06/19 at 05:30 Clonidine (Catapres) 0.1 mg Q6H PRN PO ELEVATED SYSTOLIC BP Last administered o n 02/18/19 13:40; Admin Dose 0.1 MG; Start 02/06/19 at 05:30 Nitroglycerin (Nitroglycerin (Sl Tab) 0.4 Mg) 1 tab Q5M PRN SL ANGINA; Start 02/06/19 at 05:30 Ascorbic Acid (Vitamin C) 500 mg DAILY PO Last administered on 02/10/19 08:25; Admin Dose 500 MG; Start 02/06/19 at 09:00 Gabapentin (Neurontin) 100 mg TID PO Last administered on 02/21/19 13:53; Admin Dose 100 MG; Start 02/06/19 at 09:00 Multivitamins Therapeutic (Theragran) 1 tab DAILY PO Last administered on 02/10/19 08:25; Admin Dose 1 TAB; Start 02/06/19 at 09:00 Miscellaneous Information Patients own medicat... BID@,16 XX ; Start 02/06/19 at 16:00 Diagnostic Test (Pha) (Accu-Chek) 1 ea 02 XX ; Start 02/07/19 at 02:00 Insulin Aspart (Novolog Insulin Pen) NOVOLOG *MILD* ALGORITHM WITH MEALS BEDTIME SC ; Start 02/06/19 at 18:00 Miscellaneous Information 1 ea NOTE XX ; Start 02/06/19 at 14:30 Glucose (Glutose) 15 gm Q15M PRN PO DECREASED GLUCOSE; Start 02/06/19 at 14:30 Glucose (Glutose) 22.5 gm Q15M PRN PO DECREASED GLUCOSE; Start 02/06/19 at 14:30 Dextrose (D50w Syringe) 25 ml Q15M PRN IV DECREASED GLUCOSE; Start 02/06/19 at 14:30 Dextrose (D50w Syringe) 50 ml Q15M PRN IV DECREASED GLUCOSE; Start 02/06/19 at 14:30 Glucagon (Glucagen) 1 mg Q15M PRN IM DECREASED GLUCOSE; Start 02/06/19 at 14:30 Glucose (Glutose) 15 gm Q15M PRN BUCCAL DECREASED GLUCOSE; Start 02/06/19 at 14:30 Collagenase (Santyl) 1 applic DAILY TOP Last administered on 02/21/19at 08:16; Admin Dose 1 APPLIC; Start 02/06/19 at 18:30 Collagenase (Santyl) 1 applic PRN PRN TOP WHEN SOILED; Start 02/06/19 at 18:30 Lisinopril (Zestril) 40 mg DAILY PO Last administered on 02/21/19at 08:13; Admin Dose 40 MG; Start 02/08/19 at 09:00 Metformin HCl (Glucophage) 1,000 mg WITH BREAKFAST DINNE PO Last administered on 02/21/19at 08:14; Admin Dose 1,000 MG; Start 02/07/19 at 18:00 Clotrimazole (Lotrimin Cr) 1 applic BID TOP Last administered on 02/21/19at 08:17; Admin Dose 1 APPLIC; Start 02/07/19 at 11:30 Sodium Hypochlorite (Dakins Diluted (40)) 1 applic DAILY TP Last administered on 02/21/19at 08:16; Admin Dose 1 APPLIC; Start 02/09/19 at 09:00 Gentamicin Sulfate (Gentamicin Iv Per Pharmacy) GENTAMICIN PER PHARMACY NOTE XX ; Start 02/10/19 at 14:00 Nifedipine (Procardia Xl) 30 mg BID PO Last administered on 02/21/19at 08:13; Admin Dose 30 MG; Start 02/11/19 at 15:00 Polyethylene Glycol (Miralax) 17 gm DAILY PO Last administered on 02/12/19at 12:40; Admin Dose 17 GM; Start 02/12/19 at 12:30 Famotidine (Pepcid) 20 mg DAILY PO Last administered on 02/20/19 08:31; Admin Dose 20 MG; Start 02/14/19 at 09:00 Metoprolol Tartrate (Lopressor) 100 mg BID PO Last administered on 02/21/19 08:13; Admin Dose 100 MG; Start 02/13/19 at 21:00 Aspirin (Halfprin) 81 mg DAILY PO ; Start 02/14/19 at 09:00 Lactobacillus Acidophilus/ Rhamnosus (Culturelle) 1 cap BID PO Last administered on 02/21/19at 13:52; Admin Dose 1 CAP; Start 02/13/19 at 21:00 Enoxaparin Sodium (Lovenox) 40 mg DAILY SC Last administered on 02/14/19 08:19; Admin Dose 40 MG; Start 02/14/19 at 09:00 Nicotine (Nicoderm 14 Mg/ 24hr) 1 patch DAILY PRN TRANSDERM CONTROL WITHDRAWAL SYMPTOMS; Start 02/13/19 at 15:00 Linezolid (Zyvox) 600 mg BID PO Last administered on 02/21/19 08:13; Admin Dose 600 MG; Start 02/18/19 at 12:00 IV Flush (NS 10 ml) 10 ml PRN PRN IV IV PROTOCOL; Start 02/20/19 at 12:30 Gentamicin Sulfate 360 mg/ Sodium Chloride 109 ml @ 109 mls/hr Q36H IVPB Last administered on 02/20/19at 20:57; Admin Dose 109 MLS/HR; Start 02/20/19 at 20:00 Sodium Chloride 1,000 ml @ 70 mls/hr [id number] IV Last administered on 02/21/19at 10:34; Admin Dose 70 MLS/HR; Start 02/21/19 at 09:30 SONAL SCHROEDER CASING SOAKER Feb 21, 2019 14:51
[2019-02-21 20:00] VITALS: BP 148/60; PULSE 84; RESP 18
[2019-02-22] MEDS: SOD CHLORIDE 0.9% 1,000 ML IV SCH ×2 (00:21→15:14)
[2019-02-22 02:00] VITALS: BP 149/80; PULSE 81; RESP 18
[2019-02-22] MEDS: ACCU-CHEK XX SCH (02:00)
[2019-02-22 07:30] VITALS: BP 187/77; PULSE 81; RESP 17
[2019-02-22] MEDS: INSULIN ASPART [NOVOLOG] 3 ML PEN SC SCH ×4 (08:00→20:42)
[2019-02-22] MEDS: metFORMIN 500 MG TAB PO SCH ×2 (08:52→17:12)
[2019-02-22] MEDS: LACTOBACILLUS RHAMNOSUS CAP PO SCH ×2 (08:52→20:44)
[2019-02-22] MEDS: GENTAMICIN 360 MG in SOD CHLORIDE 0.9% 100 ML IVPB SCH (08:52)
[2019-02-22] MEDS: NIFEdipine (XL) 30 MG TAB PO SCH ×2 (08:53→20:32)
[2019-02-22] MEDS: POLYETHYLENE GLYCOL 17 GM PACKET PO SCH (08:53)
[2019-02-22] MEDS: METOPROLOL 100 MG TAB PO SCH ×2 (08:53→20:31)
[2019-02-22] MEDS: ASPIRIN (EC) 81 MG TAB PO SCH (08:53)
[2019-02-22] MEDS: FAMOTIDINE 20 MG TAB PO SCH (08:53)
[2019-02-22] MEDS: GABAPENTIN 100 MG CAP PO SCH ×3 (08:53→20:44)
[2019-02-22] MEDS: ASCORBIC ACID 500 MG TAB PO SCH (08:54)
[2019-02-22] MEDS: ENOXAPARIN 40 MG/0.4 ML SYG SC SCH (08:54)
[2019-02-22] MEDS: LISINOPRIL 20 MG TAB PO SCH (08:54)
[2019-02-22] MEDS: ZYVOX 600 MG TAB PO SCH ×2 (08:54→20:44)
[2019-02-22] MEDS: MULTIVITAMINS THERAPEUTIC TAB PO SCH (08:54)
[2019-02-22] MEDS: DAKINS 0.0125%(1/40) 473 ML SOLUTION TP SCH (08:55)
[2019-02-22] MEDS: CLOTRIMAZOLE 1% 30 GM CR TOP SCH ×2 (08:55→20:44)
[2019-02-22] MEDS: COLLAGENASE 5 GM (UD JAR) TOP SCH (08:55)
[2019-02-22] MEDS: hydrALAzine 20 MG INJ IV PRN ×2 (08:57→20:43)
--- NOTE | 2019-02-22 11:41 | PN ---
Date/Time of Note Date/Time of Note DATE: 02/22/19 TIME: 11:38 Assessment/Plan VTE Prophylaxis Risk score (from Ns)>0 risk: 8 SCD applied (from Ns): No SCD contraindicated: other Pharmacological prophylaxis: LMWH Lines/Catheters IV Catheter Type (from Nrs): PICC Line Central line still needed: Yes Urinary Cath still in place: Yes Reason Cath still needed: other (indicate) (monitor I&O) Assessment/Plan Hospital Course 1. Osteomyelitis of the left fifth metatarsal (01/20/2019). - Incompletely treated with IV abx due to noncompliance. - Daptomycin/gentamicin until 02/23/2019, then changed to IV Vanco plus Rocephin 03/22/2019 to complete the course of antibiotics. - continue with ID recommendations 2. Chronic bilateral lower extremity ulcers. - continue wound care 3. Multiple bilateral gluteal wounds. - Continue abx per ID. - Status post debridement on 02/07/2019. 4. Hypertension. - Continue antihypertensives. 5. Diabetes mellitus. - Hemoglobin A1c 6.5. - Continue metformin. - refusing insulin 6. Peripheral neuropathy. - Continue gabapentin. 7. Nicotine use. - Cessation was advised. 9. Debility with contractures. - Wheelchair-bound. - Physical therapy was ordered but patient refusing 10. 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 11. Chronic neurogenic bladder. - Chanel cath in place. 12. Noncompliance with medications and medical management. - Compliance was advised 11. Hyperkalemia - kayexalate prn - monitor trend 12. zurdo - continue hydration - improving Disposition and plan. renal function improved. d/c process ongoing. Awaiting placement Discussed plan of care with Dr. Walters Result Diagram: 02/22/19 0642 Results 24hrs Laboratory Tests Test 02/21/19 12:32 02/21/19 17:14 02/21/19 20:17 02/22/19 06:42 Bedside Glucose 116 128 187 Sodium Level 138 Potassium Level 4.4 Chloride Level 108 Carbon Dioxide Level 24 Anion Gap 6 Blood Urea Nitrogen 28 H Creatinine 1.12 Est Glomerular > 60 Filtrat Rate mL/min Glucose Level 78 Calcium Level 8.8 Random Gentamicin 1.2 Level Test 02/22/19 08:47 Bedside Glucose 89 Subjective 24 Hr Interval Summary Free Text/Dictation patient resting. no questions/complaints today. Exam/Review of Systems Exam Vitals Vital Signs Date Temp Pulse Resp B/P (MAP) Pulse Ox O2 O2 Flow FiO2 Time Delivery Rate 02/22/19 98.6 81 17 187/77 100 Room Air 07:30 (113) Intake and Output 02/21/19 02/21/19 02/22/19 1515:00 23:00 07:00 IntakeIntake Total 600 ml 700 ml 950 ml OutputOutput Total 300 ml 700 ml 1000 ml BalanceBalance 300 ml 0 ml -50 ml Exam Constitutional: alert, oriented Psych: nl mood/affect Head: normocephalic Respiratory: normal air movement Cardiovascular: other (regular rate ) Gastrointestinal: soft, non-tender Extremities: other (contractures BLE with wounds. ) Neurological: MANAGER ENERGY II-XII intact, nl mental status, nl speech Results Results 24hrs Laboratory Tests Test 02/21/19 12:32 02/21/19 17:14 02/21/19 20:17 02/22/19 06:42 Bedside Glucose 116 128 187 Sodium Level 138 Potassium Level 4.4 Chloride Level 108 Carbon Dioxide Level 24 Anion Gap 6 Blood Urea Nitrogen 28 H Creatinine 1.12 Est Glomerular > 60 Filtrat Rate mL/min Glucose Level 78 Calcium Level 8.8 Random Gentamicin 1.2 Level Test 02/22/19 08:47 Bedside Glucose 89 Medications Medication Current Medications IV Flush (NS 3 ml) 3 ml PER PROTOCOL IV Last administered on 02/14/19at 08:13; Admin Dose 3 ML; Start 02/06/19 at 05:30 Ondansetron HCl (Zofran Inj) 4 mg Q6H PRN IV NAUSEA/VOMITING; Start 02/06/19 at 05:30 Acetaminophen (Tylenol Tab) 650 mg Q6H PRN PO .PAIN 1-3 OR TEMP Last admi nistered on 02/06/19at 21:57; Admin Dose 650 MG; Start 02/06/19 at 05:30 Acetaminophen/ Hydrocodone Bitart ([place] (5/325)) 1 tab Q6H PRN PO .MOD PAIN 4- 6 Last administered on 02/20/19at 12:32; Admin Dose 1 TAB; Start 02/06/19 at 05:30 Morphine Sulfate (morphine) 2 mg Q4H PRN IV .SEVERE PAIN 7-10; Start 02/06/19 at 05:30 Docusate Sodium (Colace) 100 mg Q12H PRN PO .CONSTIPATION; Start 02/06/19 at 05:30 Magnesium Hydroxide (Milk Of Mag) 30 ml DAILY PRN PO .CONSTIPATION Last administered on 02/09/19at 13:58; Admin Dose 30 ML; Start 02/06/19 at 05:30 Lorazepam (Ativan) 0.5 mg Q6H PRN IV ANXIETY; Start 02/06/19 at 05:30 Albuterol/ Ipratropium (Duoneb) 3 ml Q4H RESP THERAPY PRN HHN SHORTNESS OF BREATH; Start 02/06/19 at 05:30 Hydralazine HCl (Apresoline) 10 mg Q6H PRN IV ELEVATED BLOOD PRESSURE Last administered on 02/22/19at 08:57; Admin Dose 10 MG; Start 02/06/19 at 05:30 Clonidine (Catapres) 0.1 mg Q6H PRN PO ELEVATED SYSTOLIC BP Last administered on 02/18/19at 13:40; Admin Dose 0.1 MG; Start 02/06/19 at 05:30 Nitroglycerin (Nitroglycerin (Sl Tab) 0.4 Mg) 1 tab Q5M PRN SL ANGINA; Start 02/06/19 at 05:30 Ascorbic Acid (Vitamin C) 500 mg DAILY PO Last administered on 02/10/19at 08:25; Admin Dose 500 MG; Start 02/06/19 at 09:00 Gabapentin (Neurontin) 100 mg TID PO Last administered on 02/22/19at 08:53; Admin Dose 100 MG; Start 02/06/19 at 09:00 Multivitamins Therapeutic (Theragran) 1 tab DAILY PO Last administered on 02/10/19at 08:25; Admin Dose 1 TAB; Start 02/06/19 at 09:00 Miscellaneous Information Patients own medicat... BID@ XX ; Start 02/06/19 at 16:00 Diagnostic Test (Pha) (Accu-Chek) 1 ea 02 XX ; Start 02/07/19 at 02:00 Insulin Aspart (Novolog Insulin Pen) NOVOLOG *MILD* ALGORITHM WITH MEALS BEDTIME SC ; Start 02/06/19 at 18:00 Miscellaneous Information 1 ea NOTE XX ; Start 02/06/19 at 14:30 Glucose (Glutose) 15 gm Q15M PRN PO DECREASED GLUCOSE; Start 02/06/19 at 14:30 Glucose (Glutose) 22.5 gm Q15M PRN PO DECREASED GLUCOSE; Start 02/06/19 at 14:30 Dextrose (D50w Syringe) 25 ml Q15M PRN IV DECREASED GLUCOSE; Start 02/06/19 at 14:30 Dextrose (D50w Syringe) 50 ml Q15M PRN IV DECREASED GLUCOSE; Start 02/06/19 at 14:30 Glucagon (Glucagen) 1 mg Q15M PRN IM DECREASED GLUCOSE; Start 02/06/19 at 14:30 Glucose (Glutose) 15 gm Q15M PRN BUCCAL DECREASED GLUCOSE; Start 02/06/19 at 14:30 Collagenase (Santyl) 1 applic DAILY TOP Last administered on 02/21/19at 08:16; Admin Dose 1 APPLIC; Start 02/06/19 at 18:30 Collagenase (Santyl) 1 applic PRN PRN TOP WHEN SOILED; Start 02/06/19 at 18:30 Lisinopril (Zestril) 40 mg DAILY PO Last administered on 02/21/19at 08:13; Admin Dose 40 MG; Start 02/08/19 at 09:00 Metformin HCl (Glucophage) 1,000 mg WITH BREAKFAST DINNE PO Last administered on 02/22/19at 08:52; Admin Dose 1,000 MG; Start 02/07/19 at 18:00 Clotrimazole (Lotrimin Cr) 1 applic BID TOP Last administered on 02/21/19at 08:17; Admin Dose 1 APPLIC; Start 02/07/19 at 11:30 Sodium Hypochlorite (Dakins Diluted (1/40)) 1 applic DAILY TP Last administered on 02/22/19at 08:55; Admin Dose 1 APPLIC; Start 02/09/19 at 09:00 Gentamicin Sulfate (Gentamicin Iv Per Pharmacy) GENTAMICIN PER PHARMACY NOTE XX ; Start 02/10/19 at 14:00 Nifedipine (Procardia Xl) 30 mg BID PO Last administered on 02/21/19at 08:13; Admin Dose 30 MG; Start 02/11/19 at 15:00 Polyethylene Glycol (Miralax) 17 gm DAILY PO Last administered on 02/12/19at 12:40; Admin Dose 17 GM; Start 02/12/19 at 12:30 Famotidine (Pepcid) 20 mg DAILY PO Last administered on 02/20/19at 08:31; Admin Dose 20 MG; Start 02/14/19 at 09:00 Metoprolol Tartrate (Lopressor) 100 mg BID PO Last administered on 02/21/19at 20:36; Admin Dose 100 MG; Start 02/13/19 at 21:00 Aspirin (Halfprin) 81 mg DAILY PO ; Start 02/14/19 at 09:00 Lactobacillus Acidophilus/ Rhamnosus (Culturelle) 1 cap BID PO Last administered on 02/22/19at 08:52; Admin Dose 1 CAP; Start 02/13/19 at 21:00 Enoxaparin Sodium (Lovenox) 40 mg DAILY SC Last administered on 02/14/19at 08:19; Admin Dose 40 MG; Start 02/14/19 at 09:00 Nicotine (Nicoderm 14 Mg/ 24hr) 1 patch DAILY PRN TRANSDERM CONTROL WITHDRAWAL SYMPTOMS; Start 02/13/19 at 15:00 Linezolid (Zyvox) 600 mg BID PO Last administered on 02/22/19at 08:54; Admin Dose 600 MG; Start 02/18/19 at 12:00 IV Flush (NS 10 ml) 10 ml PRN PRN IV IV PROTOCOL; Start 02/20/19 at 12:30 Gentamicin Sulfate 360 mg/ Sodium Chloride 109 ml @ 109 mls/hr Q36H IVPB Last administered on 02/22/19at 08:52; Admin Dose 109 MLS/HR; Start 02/20/19 at 20:00; Stop 02/22/19 at 12:00 Sodium Chloride 1,000 ml @ 70 mls/hr [id number] IV Last administered on 02/22/19at 00:21; Admin Dose 70 MLS/HR; Start 02/21/19 at 09:30 Gentamicin Sulfate 360 mg/ Sodium Chloride 109 ml @ 109 mls/hr Q48H IVPB ; Start 02/24/19 at 10:00 SONAL SCHROEDER NP Feb 22, 2019 11:41
[2019-02-22 13:00] VITALS: BP 178/78; PULSE 78; RESP 18
--- NOTE | 2019-02-22 14:09 | CONS ---
Assessment/Plan Assessment/Plan Hospital Course (Demo Recall) ID PROGRESS NOTE CURRENT ABX: DAY # => Zyvox + GENT s/p Vanco IV + Zosyn 02/22/19 0642 24H INTERVAL SUMMARY * Clinically stable -- no fevers, VSS, looks comfortable -- resting * Non-compliance reported per staff and notes MICRO/OTHER * 02/07/19 RIGHT BUTTOCK CX (+)WOUND CULTURE Final Organism 1 METHICILLIN RESISTANT S.AUREUS QUANTITY 2+ . MULTI DRUG RESISTANT ORGANISM Organism 2 PSEUDOMONAS AERUGINOSA QUANTITY ISOLATED FROM BROTH ONLY Organism 3 CORYNEBACTER ROGERSIKEIUM (GRP JK) QUANTITY 2+ * 02/07/19 LEFT BUTTOCK CX == WOUND CULTURE Final Organism 1 METHICILLIN RESISTANT S.AUREUS QUANTITY SCANT GROWTH . MULTI DRUG RESISTANT ORGANISM Organism 2 PSEUDOMONAS AERUGINOSA QUANTITY SCANT GROWTH Organism 3 CORYNEBACTER JEIKEIUM (GRP JK) QUANTITY 1+ Organism 4 VANCO RESISTANT ENTEROCOCCUS * 02/06/19 BCx 1/ 4 (+) CoNS PHYSICAL EXAMINATION: GENERAL: VSS, NAD HEENT: AT, NC, unremarkable NECK: Supple, CHEST: Equal chest rise bilaterally, without dyspnea on observation HEART: Pulse RRR ABDOMEN: Soft : deferred EXTREMITIES: Warm, dry SKIN: No rash, no diaphoresis == SEE PHOTOS ID ASSESSMENT 63 yo M admit with: 1. Bilateral lower extremities diabetic ulcerations 2. Left foot osteomyelitis 3. Diabetes with diabetic neuropathy 4. Bilateral buttocks ulcerations, status post debridement 5. Coag negative staph bacteremia consistent with contaminant 6. Noncompliance ABX ALLERGIES: None to ABX INVASIVES: PICC CURRENT ABX: DAY # >ZYVOX + GENT S/P Vanco IV + Zosyn ID RECOMMENDATIONS/PLAN: 1. Continue current ABX over the weekend 2. Will f/u . Consultation Date/Type/Reason Admit Date/Time Feb 06, 2019 at 03:18 Initial Consult Date 02/07/19 Requesting Provider: MASOUD SOLANO DPM Date/Time of Note DATE: 02/22/19 TIME: 14:08 Exam/Review of Systems Exam Vitals Vital Signs Date Temp Pulse Resp B/P (MAP) Pulse Ox O2 O2 Flow FiO2 Time Delivery Rate 02/22/19 98.6 81 17 187/77 100 Room Air 07:30 (113) Intake and Output 02/21/19 02/21/19 02/22/19 1515:00 23:00 07:00 IntakeIntake Total 600 ml 700 ml 950 ml OutputOutput Total 300 ml 700 ml 1000 ml BalanceBalance 300 ml 0 ml -50 ml Results Result Diagram: 02/22/19 0642 Results 24hrs Laboratory Tests Test 02/21/19 17:14 02/21/19 20:17 02/22/19 06:42 02/22/19 08:47 Bedside Glucose 128 187 89 Sodium Level 138 Potassium Level 4.4 Chloride Level 108 Carbon Dioxide Level 24 Anion Gap 6 Blood Urea Nitrogen 28 H Creatinine 1.12 Est Glomerular > 60 Filtrat Rate mL/min Glucose Level 78 Calcium Level 8.8 Random Gentamicin 1.2 Level Test 02/22/19 12:17 Bedside Glucose 95 Medications Medication Current Medications IV Flush (NS 3 ml) 3 ml PER PROTOCOL IV Last administered on 02/14/19at 08:13; Admin Dose 3 ML; Start 02/06/19 at 05:30 Ondansetron HCl (Zofran Inj) 4 mg Q6H PRN IV NAUSEA/VOMITING; Start 02/06/19 at 05:30 Acetaminophen (Tylenol Tab) 650 mg Q6H PRN PO .PAIN 1-3 OR TEMP Last administered on 02/06/19at 21:57; Admin Dose 650 MG; Start 02/06/19 at 05:30 Acetaminophen/ Hydrocodone Bitart ([place] (5/325)) 1 tab Q6H PRN PO .MOD PAIN 4- 6 Last administered on 02/20/19at 12:32; Admin Dose 1 TAB; Start 02/06/19 at 05:30 Morphine Sulfate (morphine) 2 mg Q4H PRN IV .SEVERE PAIN 7-10; Start 02/06/19 at 05:30 Docusate Sodium (Colace) 100 mg Q12H PRN PO .CONSTIPATION; Start 02/06/19 at 05:30 Magnesium Hydroxide (Milk Of Mag) 30 ml DAILY PRN PO .CONSTIPATION Last administered on 02/09/19at 13:58; Admin Dose 30 ML; Start 02/06/19 at 05:30 Lorazepam (Ativan) 0.5 mg Q6H PRN IV ANXIETY; Start 02/06/19 at 05:30 Albuterol/ Ipratropium (Duoneb) 3 ml Q4H RESP THERAPY PRN HHN SHORTNESS OF BREATH; Start 02/06/19 at 05:30 Hydralazine HCl (Apresoline) 10 mg Q6H PRN IV ELEVATED BLOOD PRESSURE Last administered on 02/22/19at 08:57; Admin Dose 10 MG; Start 02/06/19 at 05:30 Clonidine (Catapres) 0.1 mg Q6H PRN PO ELEVATED SYSTOLIC BP Last administered on 02/18/19at 13:40; Admin Dose 0.1 MG; Start 02/06/19 at 05:30 Nitroglycerin (Nitroglycerin (Sl Tab) 0.4 Mg) 1 tab Q5M PRN SL ANGINA; Start 02/06/19 at 05:30 Ascorbic Acid (Vitamin C) 500 mg DAILY PO Last administered on 02/10/19at 08:25; Admin Dose 500 MG; Start 02/06/19 at 09:00 Gabapentin (Neurontin) 100 mg TID PO Last administered on 02/22/19at 12:18; Admin Dose 100 MG; Start 02/06/19 at 09:00 Multivitamins Therapeutic (Theragran) 1 tab DAILY PO Last administered on 02/10/19at 08:25; Admin Dose 1 TAB; Start 02/06/19 at 09:00 Miscellaneous Information Patients own medicat... BID@10,16 XX ; Start 02/06/19 at 16:00 Diagnostic Test (Pha) (Accu-Chek) 1 ea 02 XX ; Start 02/07/19 at 02:00 Insulin Aspart (Novolog Insulin Pen) NOVOLOG *MILD* ALGORITHM WITH MEALS BEDTIME SC ; Start 02/06/19 at 18:00 Miscellaneous Information 1 ea NOTE XX ; Start 02/06/19 at 14:30 Glucose (Glutose) 15 gm Q15M PRN PO DECREASED GLUCOSE; Start 02/06/19 at 14:30 Glucose (Glutose) 22.5 gm Q15M PRN PO DECREASED GLUCOSE; Start 02/06/19 at 14:30 Dextrose (D50w Syringe) 25 ml Q15M PRN IV DECREASED GLUCOSE; Start 02/06/19 at 14:30 Dextrose (D50w Syringe) 50 ml Q15M PRN IV DECREASED GLUCOSE; Start 02/06/19 at 14:30 Glucagon (Glucagen) 1 mg Q15M PRN IM DECREASED GLUCOSE; Start 02/06/19 at 14:30 Glucose (Glutose) 15 gm Q15M PRN BUCCAL DECREASED GLUCOSE; Start 02/06/19 at 14:30 Collagenase (Santyl) 1 applic DAILY TOP Last administered on 02/21/19 08:16; Admin Dose 1 APPLIC; Start 02/06/19 at 18:30 Collagenase (Santyl) 1 applic PRN PRN TOP WHEN SOILED; Start 02/06/19 at 18:30 Lisinopril (Zestril) 40 mg DAILY PO Last administered on 02/21/19at 08:13; Admin Dose 40 MG; Start 02/08/19 at 09:00 Metformin HCl (Glucophage) 1,000 mg WITH BREAKFAST DINNE PO Last administered on 02/22/19 08:52; Admin Dose 1,000 MG; Start 02/07/19 at 18:00 Clotrimazole (Lotrimin Cr) 1 applic BID TOP Last administered on 02/21/19 08:17; Admin Dose 1 APPLIC; Start 02/07/19 at 11:30 Sodium Hypochlorite (Dakins Diluted (40)) 1 applic DAILY TP Last administered on 02/22/19 08:55; Admin Dose 1 APPLIC; Start 02/09/19 at 09:00 Gentamicin Sulfate (Gentamicin Iv Per Pharmacy) GENTAMICIN PER PHARMACY NOTE XX ; Start 02/10/19 at 14:00 Nifedipine (Procardia Xl) 30 mg BID PO Last administered on 02/21/19 08:13; Admin Dose 30 MG; Start 02/11/19 at 15:00 Polyethylene Glycol (Miralax) 17 gm DAILY PO Last administered on 02/12/19 12:40; Admin Dose 17 GM; Start 02/12/19 at 12:30 Famotidine (Pepcid) 20 mg DAILY PO Last administered on 02/20/19 08:31; Admin Dose 20 MG; Start 02/14/19 at 09:00 Metoprolol Tartrate (Lopressor) 100 mg BID PO Last administered on 6/21/19at 20:36; Admin Dose 100 MG; Start 02/13/19 at 21:00 Aspirin (Halfprin) 81 mg DAILY PO ; Start 02/14/19 at 09:00 Lactobacillus Acidophilus/ Rhamnosus (Culturelle) 1 cap BID PO Last administered on 02/22/19at 08:52; Admin Dose 1 CAP; Start 02/13/19 at 21:00 Enoxaparin Sodium (Lovenox) 40 mg DAILY SC Last administered on 02/14/19at 08:19; Admin Dose 40 MG; Start 02/14/19 at 09:00 Nicotine (Nicoderm 14 Mg/ 24hr) 1 patch DAILY PRN TRANSDERM CONTROL WITHDRAWAL SYMPTOMS; Start 02/13/19 at 15:00 Linezolid (Zyvox) 600 mg BID PO Last administered on 02/22/19at 08:54; Admin Dose 600 MG; Start 02/18/19 at 12:00 IV Flush (NS 10 ml) 10 ml PRN PRN IV IV PROTOCOL; Start 02/20/19 at 12:30 Sodium Chloride 1,000 ml @ 70 mls/hr [id number] IV Last administered on 02/22/19at 00:21; Admin Dose 70 MLS/HR; Start 02/21/19 at 09:30 Gentamicin Sulfate 360 mg/ Sodium Chloride 109 ml @ 109 mls/hr Q48H IVPB ; Start 02/24/19 at 10:00 BARRERA AGUIAR NP Feb 22, 2019 14:09
[2019-02-22 20:00] VITALS: BP 181/85; PULSE 77; RESP 16
--- NOTE | 2019-02-22 23:47 | PN ---
Date/Time of Note Date/Time of Note DATE: 02/22/19 TIME: 23:45 Assessment/Plan Lines/Catheters IV Catheter Type (from Nrs): PICC Line Chanel in Place (from Nrs): Yes Assessment/Plan Chief Complaint/Hosp Course 1. Multiple wounds s/p debridement of bilat buttock 02/07/19 healing well -further debridement prn -Continue local care> same treatment -frequent turning and off-loading -low air loss mattress -vitamin c -short term zinc -optimize nutrition -bilateral LE wounds: per podiatry 2. Osteomyelitis BLE s/p iv abx per ID -placement pending 3. Hypertension -nutrition and medication management 4. Diabetes: hga1c: 6.5 -nutrition and medication management 5. Diabetic neuropathy -safety precs (ensure no lines/tubes, etc on skin) -diabetes optimization 6. Hypochromic anemia -monitor and tx as needed 7. Depression -psych optimization 8. 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 Intermittently refusing medications. No fevers, chills, sob, congested cough, cp, palpitations, koch, dizziness, nausea, vomiting, diarrhea, dysuria. Exam/Review of Systems Vital Signs Vitals Vital Signs Date Temp Pulse Resp B/P (MAP) Pulse Ox O2 O2 Flow FiO2 Time Delivery Rate 02/22/19 98.5 77 16 181/85 100 Room Air 20:00 (117) Intake and Output 02/21/19 02/21/19 02/22/19 1515:00 23:00 07:00 IntakeIntake Total 600 ml 700 ml 950 ml OutputOutput Total 300 ml 700 ml 1000 ml BalanceBalance 300 ml 0 ml -50 ml Exam Free Text/Dictation Constitutional: alert, oriented, well developed Psych: nl mood/affect, labile Head: normocephalic, atraumatic Eyes: nl conjunctiva, EOMI, nl lids, nl sclera ENMT: nl external ears & nose, nl lips & teeth, mucosa pink and moist Neck: supple, non-tender; No jvd Respiratory: normal air movement; No congested cough Cardiovascular: regular rate and rhythm, nl pulses; No edema Gastrointestinal: soft, non-tender Genitourinary - Male: nl penis, nl scrotum Musculoskeletal: nl extremities to inspection, other (contracted BLE) Extremities: normal pulses; No pitting pedal edema Neurological: nl mental status, nl speech, nl strength Skin: other (multiple wounds: bilat buttock: clean, no periwound erythema, scant drainage); BLE: wounds: dry No rash or lesions Lymph: No nl lymph nodes Results Result Diagram: 02/22/19 0642 MARIE GOODRICH MD Feb 22, 2019 23:47
[2019-02-23] MEDS: ACCU-CHEK XX SCH (01:11)
[2019-02-23 02:26] VITALS: BP 181/82; PULSE 77; RESP 16
[2019-02-23] MEDS: hydrALAzine 20 MG INJ IV PRN ×2 (02:39→20:20)
[2019-02-23] MEDS: SOD CHLORIDE 0.9% 1,000 ML IV SCH ×2 (04:35→17:53)
[2019-02-23] MEDS: INSULIN ASPART [NOVOLOG] 3 ML PEN SC SCH ×4 (08:00→20:21)
[2019-02-23 08:19] VITALS: BP 175/81; PULSE 77; RESP 17
[2019-02-23] MEDS: metFORMIN 500 MG TAB PO SCH ×2 (08:46→17:14)
[2019-02-23] MEDS: LACTOBACILLUS RHAMNOSUS CAP PO SCH ×2 (08:46→20:20)
[2019-02-23] MEDS: LISINOPRIL 20 MG TAB PO SCH (08:47)
[2019-02-23] MEDS: ZYVOX 600 MG TAB PO SCH ×2 (08:48→20:21)
[2019-02-23] MEDS: FAMOTIDINE 20 MG TAB PO SCH (08:48)
[2019-02-23] MEDS: METOPROLOL 100 MG TAB PO SCH ×2 (08:48→20:20)
[2019-02-23] MEDS: GABAPENTIN 100 MG CAP PO SCH ×3 (08:48→20:19)
[2019-02-23] MEDS: NIFEdipine (XL) 30 MG TAB PO SCH ×2 (08:49→20:21)
[2019-02-23] MEDS: MULTIVITAMINS THERAPEUTIC TAB PO SCH (08:49)
[2019-02-23] MEDS: ENOXAPARIN 40 MG/0.4 ML SYG SC SCH (08:50)
[2019-02-23] MEDS: POLYETHYLENE GLYCOL 17 GM PACKET PO SCH (08:50)
[2019-02-23] MEDS: ASCORBIC ACID 500 MG TAB PO SCH (08:50)
[2019-02-23] MEDS: ASPIRIN (EC) 81 MG TAB PO SCH (08:50)
[2019-02-23] MEDS: CLOTRIMAZOLE 1% 30 GM CR TOP SCH ×2 (08:51→20:21)
[2019-02-23] MEDS: DAKINS 0.0125%(1/40) 473 ML SOLUTION TP SCH (08:51)
[2019-02-23] MEDS: COLLAGENASE 5 GM (UD JAR) TOP SCH (08:51)
--- NOTE | 2019-02-23 14:04 | CONS ---
Assessment/Plan Assessment/Plan Hospital Course (Demo Recall) ID PROGRESS NOTE CURRENT ABX: DAY # => Zyvox + GENT s/p Vanco IV + Zosyn 24H INTERVAL SUMMARY * nO NEW ISSUES / NO EVENTS SINCE YESTERDAY'S VISIT * Clinically stable -- no fevers, VSS, looks comfortable -- resting * Non-compliance reported per staff and notes MICRO/OTHER * 02/07/19 RIGHT BUTTOCK CX (+)WOUND CULTURE Final Organism 1 METHICILLIN RESISTANT S.AUREUS QUANTITY 2+ . MULTI DRUG RESISTANT ORGANISM Organism 2 PSEUDOMONAS AERUGINOSA QUANTITY ISOLATED FROM BROTH ONLY Organism 3 CORYNEBACTER ROGERSIKEIUM (GRP JK) QUANTITY 2+ * 02/07/19 LEFT BUTTOCK CX == WOUND CULTURE Final Organism 1 METHICILLIN RESISTANT S.AUREUS QUANTITY SCANT GROWTH . MULTI DRUG RESISTANT ORGANISM Organism 2 PSEUDOMONAS AERUGINOSA QUANTITY SCANT GROWTH Organism 3 CORYNEBACTER JEIKEIUM (GRP JK) QUANTITY 1+ Organism 4 VANCO RESISTANT ENTEROCOCCUS * 02/06/19 BCx 1/ 4 (+) CoNS PHYSICAL EXAMINATION: GENERAL: VSS, NAD HEENT: AT, NC, unremarkable NECK: Supple, CHEST: Equal chest rise bilaterally, without dyspnea on observation HEART: Pulse RRR ABDOMEN: Soft : deferred EXTREMITIES: Warm, dry SKIN: No rash, no diaphoresis == SEE PHOTOS ID ASSESSMENT 63 yo M admit with: 1. Bilateral lower extremities diabetic ulcerations 2. Left foot osteomyelitis 3. Diabetes with diabetic neuropathy 4. Bilateral buttocks ulcerations, status post debridement 5. Coag negative staph bacteremia consistent with contaminant 6. Noncompliance ABX ALLERGIES: None to ABX INVASIVES: PICC CURRENT ABX: DAY # >ZYVOX + GENT S/P Vanco IV + Zosyn ID RECOMMENDATIONS/PLAN: 1. Continue current ABX over the weekend 2. ID [employer] colleague to f/u . Consultation Date/Type/Reason Admit Date/Time Feb 06, 2019 at 03:18 Initial Consult Date 02/07/19 Requesting Provider: MASOUD SOLANO DPM Date/Time of Note DATE: 02/23/19 TIME: 13:56 Exam/Review of Systems Exam Vitals Vital Signs Date Temp Pulse Resp B/P (MAP) Pulse Ox O2 O2 Flow FiO2 Time Delivery Rate 02/23/19 97.9 77 17 175/81 98 08:19 (112) 02/22/19 Room Air 20:00 Intake and Output 02/22/19 02/22/19 02/23/19 1515:00 23:00 07:00 IntakeIntake Total 109 ml 1000 ml OutputOutput Total 750 ml BalanceBalance 109 ml -750 ml 1000 ml Results Result Diagram: 02/23/19 0650 Results 24hrs Laboratory Tests Test 02/22/19 17:11 02/22/19 20:42 02/23/19 06:50 02/23/19 08:27 Bedside Glucose 123 117 87 Sodium Level 139 Potassium Level 3.8 Chloride Level 112 H Carbon Dioxide Level 21 Anion Gap 6 Blood Urea Nitrogen 24 H Creatinine 0.92 Est Glomerular > 60 Filtrat Rate mL/min Glucose Level 88 Calcium Level 8.2 L Test 02/23/19 12:36 Bedside Glucose 119 Medications Medication Current Medications IV Flush (NS 3 ml) 3 ml PER PROTOCOL IV Last administered on 02/14/19at 08:13; Admin Dose 3 ML; Start 02/06/19 at 05:30 Ondansetron HCl (Zofran Inj) 4 mg Q6H PRN IV NAUSEA/VOMITING; Start 02/06/19 at 05:30 Acetaminophen (Tylenol Tab) 650 mg Q6H PRN PO .PAIN 1-3 OR TEMP Last administered on 02/06/19at 21:57; Admin Dose 650 MG; Start 02/06/19 at 05:30 Acetaminophen/ Hydrocodone Bitart ([place] (5/325)) 1 tab Q6H PRN PO .MOD PAIN 4- 6 Last administered on 02/20/19at 12:32; Admin Dose 1 TAB; Start 02/06/19 at 05:30 Morphine Sulfate (morphine) 2 mg Q4H PRN IV .SEVERE PAIN 7-10; Start 02/06/19 at 05:30 Docusate Sodium (Colace) 100 mg Q12H PRN PO .CONSTIPATION; Start 02/06/19 at 05:30 Magnesium Hydroxide (Milk Of Mag) 30 ml DAILY PRN PO .CONSTIPATION Last administered on 02/09/19at 13:58; Admin Dose 30 ML; Start 02/06/19 at 05:30 Lorazepam (Ativan) 0.5 mg Q6H PRN IV ANXIETY; Start 02/06/19 at 05:30 Albuterol/ Ipratropium (Duoneb) 3 ml Q4H RESP THERAPY PRN HHN SHORTNESS OF BREATH; Start 02/06/19 at 05:30 Hydralazine HCl (Apresoline) 10 mg Q6H PRN IV ELEVATED BLOOD PRESSURE Last administered on 02/23/19at 02:39; Admin Dose 10 MG; Start 02/06/19 at 05:30 Clonidine (Catapres) 0.1 mg Q6H PRN PO ELEVATED SYSTOLIC BP Last administered on 02/18/19at 13:40; Admin Dose 0.1 MG; Start 02/06/19 at 05:30 Nitroglycerin (Nitroglycerin (Sl Tab) 0.4 Mg) 1 tab Q5M PRN SL ANGINA; Start 02/06/19 at 05:30 Ascorbic Acid (Vitamin C) 500 mg DAILY PO Last administered on 02/10/19at 08:25; Admin Dose 500 MG; Start 02/06/19 at 09:00 Gabapentin (Neurontin) 100 mg TID PO Last administered on 02/23/19at 08:48; Admin Dose 100 MG; Start 02/06/19 at 09:00 Multivitamins Therapeutic (Theragran) 1 tab DAILY PO Last administered on 02/10/19at 08:25; Admin Dose 1 TAB; Start 02/06/19 at 09:00 Miscellaneous Information Patients own medicat... BID@ XX ; Start 02/06/19 at 16:00 Diagnostic Test (Pha) (Accu-Chek) 1 ea 02 XX ; Start 02/07/19 at 02:00 Insulin Aspart (Novolog Insulin Pen) NOVOLOG *MILD* ALGORITHM WITH MEALS BEDTIME SC ; Start 02/06/19 at 18:00 Miscellaneous Information 1 ea NOTE XX ; Start 02/06/19 at 14:30 Glucose (Glutose) 15 gm Q15M PRN PO DECREASED GLUCOSE; Start 02/06/19 at 14:30 Glucose (Glutose) 22.5 gm Q15M PRN PO DECREASED GLUCOSE; Start 02/06/19 at 14:30 Dextrose (D50w Syringe) 25 ml Q15M PRN IV DECREASED GLUCOSE; Start 02/06/19 at 14:30 Dextrose (D50w Syringe) 50 ml Q15M PRN IV DECREASED GLUCOSE; Start 02/06/19 at 14:30 Glucagon (Glucagen) 1 mg Q15M PRN IM DECREASED GLUCOSE; Start 02/06/19 at 14:30 Glucose (Glutose) 15 gm Q15M PRN BUCCAL DECREASED GLUCOSE; Start 02/06/19 at 14:30 Collagenase (Santyl) 1 applic DAILY TOP Last administered on 02/23/19 08:51; Admin Dose 1 APPLIC; Start 02/06/19 at 18:30 Collagenase (Santyl) 1 applic PRN PRN TOP WHEN SOILED; Start 02/06/19 at 18:30 Lisinopril (Zestril) 40 mg DAILY PO Last administered on 02/23/19at 08:47; Admin Dose 40 MG; Start 02/08/19 at 09:00 Metformin HCl (Glucophage) 1,000 mg WITH BREAKFAST DINNE PO Last administered on 02/23/19 08:46; Admin Dose 1,000 MG; Start 02/07/19 at 18:00 Clotrimazole (Lotrimin Cr) 1 applic BID TOP Last administered on 02/23/19 08:51; Admin Dose 1 APPLIC; Start 02/07/19 at 11:30 Sodium Hypochlorite (Dakins Diluted (40)) 1 applic DAILY TP Last administered on 02/23/19 08:51; Admin Dose 1 APPLIC; Start 02/09/19 at 09:00 Gentamicin Sulfate (Gentamicin Iv Per Pharmacy) GENTAMICIN PER PHARMACY NOTE XX ; Start 02/10/19 at 14:00 Nifedipine (Procardia Xl) 30 mg BID PO Last administered on 02/21/19at 08:13; Admin Dose 30 MG; Start 02/11/19 at 15:00 Polyethylene Glycol (Miralax) 17 gm DAILY PO Last administered on 02/12/19at 12:40; Admin Dose 17 GM; Start 02/12/19 at 12:30 Famotidine (Pepcid) 20 mg DAILY PO Last administered on 02/23/19at 08:48; Admin Dose 20 MG; Start 02/14/19 at 09:00 Metoprolol Tartrate (Lopressor) 100 mg BID PO Last administered on 02/23/19at 08:48; Admin Dose 100 MG; Start 02/13/19 at 21:00 Aspirin (Halfprin) 81 mg DAILY PO ; Start 02/14/19 at 09:00 Lactobacillus Acidophilus/ Rhamnosus (Culturelle) 1 cap BID PO Last administered on 02/23/19at 08:46; Admin Dose 1 CAP; Start 02/13/19 at 21:00 Enoxaparin Sodium (Lovenox) 40 mg DAILY SC Last administered on 02/14/19at 08:19; Admin Dose 40 MG; Start 02/14/19 at 09:00 Nicotine (Nicoderm 14 Mg/ 24hr) 1 patch DAILY PRN TRANSDERM CONTROL WITHDRAWAL SYMPTOMS; Start 02/13/19 at 15:00 Linezolid (Zyvox) 600 mg BID PO Last administered on 02/23/19at 08:48; Admin Dose 600 MG; Start 02/18/19 at 12:00 IV Flush (NS 10 ml) 10 ml PRN PRN IV IV PROTOCOL; Start 02/20/19 at 12:30 Sodium Chloride 1,000 ml @ 70 mls/hr [id number] IV Last administered on 02/23/19at 04:35; Admin Dose 70 MLS/HR; Start 02/21/19 at 09:30 Gentamicin Sulfate 360 mg/ Sodium Chloride 109 ml @ 109 mls/hr Q48H IVPB ; St art 02/24/19 at 10:00 BARRERA AGUIAR NP Feb 23, 2019 14:04
--- NOTE | 2019-02-23 15:53 | PN ---
Date/Time of Note Date/Time of Note DATE: 02/23/19 TIME: 15:51 Assessment/Plan VTE Prophylaxis Risk score (from Ns)>0 risk: 4 SCD applied (from Ns): No SCD contraindicated: other Pharmacological prophylaxis: LMWH Lines/Catheters IV Catheter Type (from Nrsg): PICC Line Central line still needed: Yes Urinary Cath still in place: Yes Reason Cath still needed: other (indicate) (monitor I&O ) Assessment/Plan Hospital Course 1. Osteomyelitis of the left fifth metatarsal (01/20/2019). - Incompletely treated with IV abx due to noncompliance. - Daptomycin/gentamicin until 02/23/2019, then changed to IV Vanco plus Roceph in 03/22/2019 to complete the course of antibiotics. - continue with ID recommendations 2. Chronic bilateral lower extremity ulcers. - continue wound care 3. Multiple bilateral gluteal wounds. - Continue abx per ID. - Status post debridement on 02/07/2019. 4. Hypertension. - Continue antihypertensives. 5. Diabetes mellitus. - Hemoglobin A1c 6.5. - Continue metformin. - refusing insulin 6. Peripheral neuropathy. - Continue gabapentin. 7. Nicotine use. - Cessation was advised. 9. Debility with contractures. - Wheelchair-bound. - Physical therapy was ordered but patient refusing 10. 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 - buffing line set up worker following. 11. Chronic neurogenic bladder. - Chanel cath in place. 12. Noncompliance with medications and medical management. - Compliance was advised 11. Hyperkalemia - kayexalate prn - monitor trend 12. zurdo - continue hydration - improving Disposition and plan. . d/c process ongoing. Awaiting placement . continue current tx. Discussed plan of care with Dr. Walters Result Diagram: 02/23/19 0650 Results 24hrs Laboratory Tests Test 02/22/19 17:11 02/22/19 20:42 02/23/19 06:50 02/23/19 08:27 Bedside Glucose 123 117 87 Sodium Level 139 Potassium Level 3.8 Chloride Level 112 H Carbon Dioxide Level 21 Anion Gap 6 Blood Urea Nitrogen 24 H Creatinine 0.92 Est Glomerular > 60 Filtrat Rate mL/min Glucose Level 88 Calcium Level 8.2 L Test 02/23/19 12:36 Bedside Glucose 119 Subjective 24 Hr Interval Summary Free Text/Dictation comfortable, no specific complaints Exam/Review of Systems Exam Vitals Vital Signs Date Temp Pulse Resp B/P (MAP) Pulse Ox O2 O2 Flow FiO2 Time Delivery Rate 02/23/19 97.9 77 17 175/81 98 08:19 (112) 02/22/19 Room Air 20:00 Intake and Output 02/22/19 02/22/19 02/23/19 1515:00 23:00 07:00 IntakeIntake Total 109 ml 1000 ml OutputOutput Total 750 ml BalanceBalance 109 ml -750 ml 1000 ml Exam Constitutional: alert, oriented Psych: nl mood/affect Head: normocephalic Respiratory: normal air movement Cardiovascular: other (regular rate ) Gastrointestinal: soft, non-tender Extremities: other (contractures BLE with wounds. 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, nl mental status, nl speech Results Results 24hrs Laboratory Tests Test 02/22/19 17:11 02/22/19 20:42 02/23/19 06:50 02/23/19 08:27 Bedside Glucose 123 117 87 Sodium Level 139 Potassium Level 3.8 Chloride Level 112 H Carbon Dioxide Level 21 Anion Gap 6 Blood Urea Nitrogen 24 H Creatinine 0.92 Est Glomerular > 60 Filtrat Rate mL/min Glucose Level 88 Calcium Level 8.2 L Test 02/23/19 12:36 Bedside Glucose 119 Medications Medication Current Medications IV Flush (NS 3 ml) 3 ml PER PROTOCOL IV Last administered on 02/14/19at 08:13; Admin Dose 3 ML; Start 02/06/19 at 05:30 Ondansetron HCl (Zofran Inj) 4 mg Q6H PRN IV NAUSEA/VOMITING; Start 02/06/19 at 05:30 Acetaminophen (Tylenol Tab) 650 mg Q6H PRN PO .PAIN 1-3 OR TEMP Last administered on 02/06/19at 21:57; Admin Dose 650 MG; Start 02/06/19 at 05:30 Acetaminophen/ Hydrocodone Bitart ([place] (5/325)) 1 tab Q6H PRN PO .MOD PAIN 4- 6 Last administered on 02/20/19at 12:32; Admin Dose 1 TAB; Start 02/06/19 at 05:30 Morphine Sulfate (morphine) 2 mg Q4H PRN IV .SEVERE PAIN 7-10; Start 02/06/19 at 05:30 Docusate Sodium (Colace) 100 mg Q12H PRN PO .CONSTIPATION; Start 02/06/19 at 05:30 Magnesium Hydroxide (Milk Of Mag) 30 ml DAILY PRN PO .CONSTIPATION Last administered on 02/09/19at 13:58; Admin Dose 30 ML; Start 02/06/19 at 05:30 Lorazepam (Ativan) 0.5 mg Q6H PRN IV ANXIETY; Start 02/06/19 at 05:30 Albuterol/ Ipratropium (Duoneb) 3 ml Q4H RESP THERAPY PRN HHN SHORTNESS OF BREATH; Start 02/06/19 at 05:30 Hydralazine HCl (Apresoline) 10 mg Q6H PRN IV ELEVATED BLOOD PRESSURE Last administered on 02/23/19at 02:39; Admin Dose 10 MG; Start 02/06/19 at 05:30 Clonidine (Catapres) 0.1 mg Q6H PRN PO ELEVATED SYSTOLIC BP Last administered on 02/18/19at 13:40; Admin Dose 0.1 MG; Start 02/06/19 at 05:30 Nitroglycerin (Nitroglycerin (Sl Tab) 0.4 Mg) 1 tab Q5M PRN SL ANGINA; Start 02/06/19 at 05:30 Ascorbic Acid (Vitamin C) 500 mg DAILY PO Last administered on 02/10/19at 08:25; Admin Dose 500 MG; Start 02/06/19 at 09:00 Gabapentin (Neurontin) 100 mg TID PO Last administered on 02/23/19at 08:48; Admin Dose 100 MG; Start 02/06/19 at 09:00 Multivitamins Therapeutic (Theragran) 1 tab DAILY PO Last administered on 02/10/19at 08:25; Admin Dose 1 TAB; Start 02/06/19 at 09:00 Miscellaneous Information Patients own medicat... BID@10,16 XX ; Start 02/06/19 at 16:00 Diagnostic Test (Pha) (Accu-Chek) 1 ea 02 XX ; Start 02/07/19 at 02:00 Insulin Aspart (Novolog Insulin Pen) NOVOLOG *MILD* ALGORITHM WITH MEALS BEDTIME SC ; Start 02/06/19 at 18:00 Miscellaneous Information 1 ea NOTE XX ; Start 02/06/19 at 14:30 Glucose (Glutose) 15 gm Q15M PRN PO DECREASED GLUCOSE; Start 02/06/19 at 14:30 Glucose (Glutose) 22.5 gm Q15M PRN PO DECREASED GLUCOSE; Start 02/06/19 at 14:30 Dextrose (D50w Syringe) 25 ml Q15M PRN IV DECREASED GLUCOSE; Start 02/06/19 at 14:30 Dextrose (D50w Syringe) 50 ml Q15M PRN IV DECREASED GLUCOSE; Start 02/06/19 at 14:30 Glucagon (Glucagen) 1 mg Q15M PRN IM DECREASED GLUCOSE; Start 02/06/19 at 14:30 Glucose (Glutose) 15 gm Q15M PRN BUCCAL DECREASED GLUCOSE; Start 02/06/19 at 14:30 Collagenase (Santyl) 1 applic DAILY TOP Last administered on 02/23/19 08:51; Admin Dose 1 APPLIC; Start 02/06/19 at 18:30 Collagenase (Santyl) 1 applic PRN PRN TOP WHEN SOILED; Start 02/06/19 at 18:30 Lisinopril (Zestril) 40 mg DAILY PO Last administered on 02/23/19at 08:47; Admin Dose 40 MG; Start 02/08/19 at 09:00 Metformin HCl (Glucophage) 1,000 mg WITH BREAKFAST DINNE PO Last administered on 02/23/19 08:46; Admin Dose 1,000 MG; Start 02/07/19 at 18:00 Clotrimazole (Lotrimin Cr) 1 applic BID TOP Last administered on 02/23/19 08:51; Admin Dose 1 APPLIC; Start 02/07/19 at 11:30 Sodium Hypochlorite (Dakins Diluted ()) 1 applic DAILY TP Last administered on 02/23/19 08:51; Admin Dose 1 APPLIC; Start 02/09/19 at 09:00 Gentamicin Sulfate (Gentamicin Iv Per Pharmacy) GENTAMICIN PER PHARMACY NOTE XX ; Start 02/10/19 at 14:00 Nifedipine (Procardia Xl) 30 mg BID PO Last administered on 02/21/19at 08:13; Admin Dose 30 MG; Start 02/11/19 at 15:00 Polyethylene Glycol (Miralax) 17 gm DAILY PO Last administered on 02/12/19at 12:40; Admin Dose 17 GM; Start 02/12/19 at 12:30 Famotidine (Pepcid) 20 mg DAILY PO Last administered on 02/23/19 08:48; Admin Dose 20 MG; Start 02/14/19 at 09:00 Metoprolol Tartrate (Lopressor) 100 mg BID PO Last administered on 02/23/19at 08:48; Admin Dose 100 MG; Start 02/13/19 at 21:00 Aspirin (Halfprin) 81 mg DAILY PO ; Start 02/14/19 at 09:00 Lactobacillus Acidophilus/ Rhamnosus (Culturelle) 1 cap BID PO Last administered on 02/23/19at 08:46; Admin Dose 1 CAP; Start 02/13/19 at 21:00 Enoxaparin Sodium (Lovenox) 40 mg DAILY SC Last administered on 02/14/19 08:19; Admin Dose 40 MG; Start 02/14/19 at 09:00 Nicotine (Nicoderm 14 Mg/ 24hr) 1 patch DAILY PRN TRANSDERM CONTROL WITHDRAWAL SYMPTOMS; Start 02/13/19 at 15:00 Linezolid (Zyvox) 600 mg BID PO Last administered on 02/23/19 08:48; Admin Dose 600 MG; Start 02/18/19 at 12:00 IV Flush (NS 10 ml) 10 ml PRN PRN IV IV PROTOCOL; Start 02/20/19 at 12:30 Sodium Chloride 1,000 ml @ 70 mls/hr [id number] IV Last administered on 02/23/19at 04:35; Admin Dose 70 MLS/HR; Start 02/21/19 at 09:30 Gentamicin Sulfate 360 mg/ Sodium Chloride 109 ml @ 109 mls/hr Q48H IVPB ; Start 02/24/19 at 10:00 SONAL SCHROEDER NP Feb 23, 2019 15:53
[2019-02-23 20:05] VITALS: BP 204/92; PULSE 76; RESP 16
[2019-02-23] MEDS ORDERED: hydrALAzine 20 MG INJ IV ONE (21:00)
[2019-02-23 21:15] VITALS: BP 155/76; PULSE 89
[2019-02-24] MEDS: ACCU-CHEK XX SCH (02:00)
[2019-02-24] MEDS: INSULIN ASPART [NOVOLOG] 3 ML PEN SC SCH ×4 (08:00→20:57)
[2019-02-24 08:05] VITALS: BP 133/91; PULSE 100; RESP 18
[2019-02-24] MEDS: metFORMIN 500 MG TAB PO SCH ×2 (08:18→17:42)
[2019-02-24] MEDS: LACTOBACILLUS RHAMNOSUS CAP PO SCH ×2 (08:19→20:52)
[2019-02-24] MEDS: METOPROLOL 100 MG TAB PO SCH ×2 (08:19→20:56)
[2019-02-24] MEDS: GABAPENTIN 100 MG CAP PO SCH ×3 (08:19→20:51)
[2019-02-24] MEDS: ASPIRIN (EC) 81 MG TAB PO SCH (08:19)
[2019-02-24] MEDS: POLYETHYLENE GLYCOL 17 GM PACKET PO SCH (08:19)
[2019-02-24] MEDS: LISINOPRIL 20 MG TAB PO SCH (08:20)
[2019-02-24] MEDS: NIFEdipine (XL) 30 MG TAB PO SCH ×2 (08:20→20:56)
[2019-02-24] MEDS: FAMOTIDINE 20 MG TAB PO SCH (08:20)
[2019-02-24] MEDS: MULTIVITAMINS THERAPEUTIC TAB PO SCH (08:20)
[2019-02-24] MEDS: ASCORBIC ACID 500 MG TAB PO SCH (08:20)
[2019-02-24] MEDS: CLOTRIMAZOLE 1% 30 GM CR TOP SCH ×2 (08:21→20:57)
[2019-02-24] MEDS: ENOXAPARIN 40 MG/0.4 ML SYG SC SCH (08:21)
[2019-02-24] MEDS: ZYVOX 600 MG TAB PO SCH ×2 (08:21→20:51)
[2019-02-24] MEDS: COLLAGENASE 5 GM (UD JAR) TOP SCH (08:21)
[2019-02-24] MEDS: DAKINS 0.0125%(1/40) 473 ML SOLUTION TP SCH (08:22)
[2019-02-24] MEDS: GENTAMICIN 360 MG in SOD CHLORIDE 0.9% 100 ML IVPB SCH (10:28)
[2019-02-24 14:44] VITALS: BP 116/96; PULSE 83; RESP 18
--- NOTE | 2019-02-24 15:49 | CONS ---
Assessment/Plan Assessment/Plan Hospital Course (Demo Recall) No events over night Left and right buttock wounds grew MRSA, Pseudomonas, Enterococcus, Maximo nebacterium group JK Blood culture on admission grew staph species 1 out of 2 sets Antimicrobials: PO Zyvox, Gentamicin ALLERGIES: HE IS NOT ALLERGIC TO ANY ANTIBIOTICS. PHYSICAL EXAMINATION: GENERAL: Well-developed elderly -[place] man who is in no distress. HEENT: Head is atraumatic, normocephalic. Sclerae are anicteric. Buccal mucosa is dry. NECK: Supple. CHEST: Rise symmetrical. Breath sounds diminished to bases. HEART: S1, S2. ABDOMEN: Soft. Bowel tones are present. EXTREMITIES: With bilateral lower extremities dressing intact. Assessment: 1. Bilateral lower extremities diabetic ulcerations 2. Left foot osteomyelitis 3. Diabetes with diabetic neuropathy 4. Bilateral buttocks ulcerations, status post debridement 5. Coag negative staph bacteremia consistent with contaminant 6. Noncompliance Plan: Remains unchanged, continue antibiotics as per our previous recommendations on 02/18/19 Consultation Date/Type/Reason Admit Date/Time Feb 06, 2019 at 03:18 Initial Consult Date 02/07/19 Type of Consult id Requesting Provider: MASOUD SOLANO DPM Date/Time of Note DATE: 02/24/19 TIME: 15:48 Exam/Review of Systems Exam Vitals Vital Signs Date Temp Pulse Resp B/P (MAP) Pulse Ox O2 O2 Flow FiO2 Time Delivery Rate 02/24/19 98.9 83 18 116/96 100 14:44 (103) 02/22/19 Room Air 20:00 Intake and Output 02/23/19 02/23/19 02/24/19 1515:00 23:00 07:00 IntakeIntake Total 360 ml 400 ml 770 ml OutputOutput Total 1000 ml BalanceBalance 360 ml -600 ml 770 ml Results Result Diagram: 02/24/19 0604 Results 24hrs Laboratory Tests Test 02/23/19 17:06 02/23/19 20:16 02/24/19 06:04 02/24/19 08:14 Bedside Glucose 123 126 97 Sodium Level 140 Potassium Level 4.1 Chloride Level 110 Carbon Dioxide Level 22 Anion Gap 8 Blood Urea Nitrogen 26 H Creatinine 1.05 Est Glomerular > 60 Filtrat Rate mL/min Glucose Level 89 Calcium Level 8.6 Test 02/24/19 12:45 Bedside Glucose 91 Medications Medication Current Medications IV Flush (NS 3 ml) 3 ml PER PROTOCOL IV Last administered on 02/14/19 08:13; Admin Dose 3 ML; Start 02/06/19 at 05:30 Ondansetron HCl (Zofran Inj) 4 mg Q6H PRN IV NAUSEA/VOMITING; Start 02/06/19 at 05:30 Acetaminophen (Tylenol Tab) 650 mg Q6H PRN PO .PAIN 1-3 OR TEMP Last administered on 02/06/19 21:57; Admin Dose 650 MG; Start 02/06/19 at 05:30 Acetaminophen/ Hydrocodone Bitart ([place] (5/325)) 1 tab Q6H PRN PO .MOD PAIN 4- 6 Last administered on 02/20/19 12:32; Admin Dose 1 TAB; Start 02/06/19 at 05:30 Morphine Sulfate (morphine) 2 mg Q4H PRN IV .SEVERE PAIN 7-10; Start 02/06/19 at 05:30 Docusate Sodium (Colace) 100 mg Q12H PRN PO .CONSTIPATION; Start 02/06/19 at 05:30 Magnesium Hydroxide (Milk Of Mag) 30 ml DAILY PRN PO .CONSTIPATION Last administered on 02/09/19 13:58; Admin Dose 30 ML; Start 02/06/19 at 05:30 Lorazepam (Ativan) 0.5 mg Q6H PRN IV ANXIETY; Start 02/06/19 at 05:30 Albuterol/ Ipratropium (Duoneb) 3 ml Q4H RESP THERAPY PRN HHN SHORTNESS OF BREATH; Start 02/06/19 at 05:30 Hydralazine HCl (Apresoline) 10 mg Q6H PRN IV ELEVATED BLOOD PRESSURE Last administered on 02/23/19 20:20; Admin Dose 10 MG; Start 02/06/19 at 05:30 Clonidine (Catapres) 0.1 mg Q6H PRN PO ELEVATED SYSTOLIC BP Last administered on 02/18/19 13:40; Admin Dose 0.1 MG; Start 02/06/19 at 05:30 Nitroglycerin (Nitroglycerin (Sl Tab) 0.4 Mg) 1 tab Q5M PRN SL ANGINA; Start 02/06/19 at 05:30 Ascorbic Acid (Vitamin C) 500 mg DAILY PO Last administered on 02/10/19at 08:25; Admin Dose 500 MG; Start 02/06/19 at 09:00 Gabapentin (Neurontin) 100 mg TID PO Last administered on 02/24/19at 12:50; Admin Dose 100 MG; Start 02/06/19 at 09:00 Multivitamins Therapeutic (Theragran) 1 tab DAILY PO Last administered on 02/10/19at 08:25; Admin Dose 1 TAB; Start 02/06/19 at 09:00 Miscellaneous Information Patients own medicat... BID@10,16 XX ; Start 02/06/19 at 16:00 Diagnostic Test (Pha) (Accu-Chek) 1 ea 02 XX ; Start 02/07/19 at 02:00 Insulin Aspart (Novolog Insulin Pen) NOVOLOG *MILD* ALGORITHM WITH MEALS BEDTIME SC ; Start 02/06/19 at 18:00 Miscellaneous Information 1 ea NOTE XX ; Start 02/06/19 at 14:30 Glucose (Glutose) 15 gm Q15M PRN PO DECREASED GLUCOSE; Start 02/06/19 at 14:30 Glucose (Glutose) 22.5 gm Q15M PRN PO DECREASED GLUCOSE; Start 02/06/19 at 14:30 Dextrose (D50w Syringe) 25 ml Q15M PRN IV DECREASED GLUCOSE; Start 02/06/19 at 14:30 Dextrose (D50w Syringe) 50 ml Q15M PRN IV DECREASED GLUCOSE; Start 02/06/19 at 14:30 Glucagon (Glucagen) 1 mg Q15M PRN IM DECREASED GLUCOSE; Start 02/06/19 at 14:30 Glucose (Glutose) 15 gm Q15M PRN BUCCAL DECREASED GLUCOSE; Start 02/06/19 at 14:30 Collagenase (Santyl) 1 applic DAILY TOP Last administered on 02/23/19at 08:51; Admin Dose 1 APPLIC; Start 02/06/19 at 18:30 Collagenase (Santyl) 1 applic PRN PRN TOP WHEN SOILED; Start 02/06/19 at 18:30 Lisinopril (Zestril) 40 mg DAILY PO Last administered on 02/23/19at 08:47; Admin Dose 40 MG; Start 02/08/19 at 09:00 Metformin HCl (Glucophage) 1,000 mg WITH BREAKFAST DINNE PO Last administered on 02/24/19 08:18; Admin Dose 1,000 MG; Start 02/07/19 at 18:00 Clotrimazole (Lotrimin Cr) 1 applic BID TOP Last administered on 02/23/19 08:51; Admin Dose 1 APPLIC; Start 02/07/19 at 11:30 Sodium Hypochlorite (Dakins Diluted (140)) 1 applic DAILY TP Last administered on 02/24/19 08:22; Admin Dose 1 APPLIC; Start 02/09/19 at 09:00 Gentamicin Sulfate (Gentamicin Iv Per Pharmacy) GENTAMICIN PER PHARMACY NOTE XX ; Start 02/10/19 at 14:00 Nifedipine (Procardia Xl) 30 mg BID PO Last administered on 02/21/19 08:13; Admin Dose 30 MG; Start 02/11/19 at 15:00 Polyethylene Glycol (Miralax) 17 gm DAILY PO Last administered on 02/12/19at 12:40; Admin Dose 17 GM; Start 02/12/19 at 12:30 Famotidine (Pepcid) 20 mg DAILY PO Last administered on 02/23/19at 08:48; Admin Dose 20 MG; Start 02/14/19 at 09:00 Metoprolol Tartrate (Lopressor) 100 mg BID PO Last administered on 02/23/19 08:48; Admin Dose 100 MG; Start 02/13/19 at 21:00 Aspirin (Halfprin) 81 mg DAILY PO ; Start 02/14/19 at 09:00 Lactobacillus Acidophilus/ Rhamnosus (Culturelle) 1 cap BID PO Last administered on 02/24/19 08:19; Admin Dose 1 CAP; Start 02/13/19 at 21:00 Enoxaparin Sodium (Lovenox) 40 mg DAILY SC Last administered on 02/14/19 08:19; Admin Dose 40 MG; Start 02/14/19 at 09:00 Nicotine (Nicoderm 14 Mg/ 24hr) 1 patch DAILY PRN TRANSDERM CONTROL WITHDRAWAL SYMPTOMS; Start 02/13/19 at 15:00 Linezolid (Zyvox) 600 mg BID PO Last administered on 02/24/19 08:21; Admin Dose 600 MG; Start 02/18/19 at 12:00 IV Flush (NS 10 ml) 10 ml PRN PRN IV IV PROTOCOL; Start 02/20/19 at 12:30 Gentamicin Sulfate 360 mg/ Sodium Chloride 109 ml @ 109 mls/hr Q48H IVPB Last administered on 02/24/19at 10:28; Admin Dose 109 MLS/HR; Start 02/24/19 at 10:00 CHANTALE RAMIREZ NP Feb 24, 2019 15:49
--- NOTE | 2019-02-24 17:41 | PN ---
Date/Time of Note Date/Time of Note DATE: 02/24/19 TIME: 17:41 Assessment/Plan VTE Prophylaxis Risk score (from Ns)>0 risk: 8 SCD applied (from [facility] [place]): No SCD contraindicated: patient refusal Pharmacological prophylaxis: LMWH Pharm contraindication: patient refusal Lines/Catheters IV C[facility]ter Type (from [facility]): PICC Line Central line still needed: Yes Urinary Cath still in place: Yes Reason Cath still needed: other (indicate) Assessment/Plan Hospital Course SUBJECTIVE: Patient refusing most of his medications. OBJECTIVE: Physical Exam General: Adequately build 63 year-old male lying in bed in no apparent distress. HEENT: Normocephalic, atraumatic. Eyes: Anicteric sclerae, conjunctivae clear. ENT: Nasal septum midline, oral mucosa moist. Neck supple. Respiratory: Bilaterally diminished. Breath sounds. No use of accessory muscles of respiration. No adventitious breath sounds. Cardiovascular: S1, S2 heard. No murmurs or gallops. Abdomen: Soft, nontender, and nondistended. Bowel sounds positive in all 4 quadrants. Genitourinary: Deferred. Extremities: Bilateral lower extremity contracted with bilateral foot wounds Neurologic: The patient is awake, alert, and oriented. Labs & Vitals per chart ASSESSMENT & PLAN 63-year-old male who is wheelchair-bound, past medical history of hypertension, sacral decubitus ulcers, diabetes, osteomyelitis, smoking history, homelessness, anemia, and neurogenic bladder, who presented with worsening diabetic foot ulcers on his bilateral feet. 1. Osteomyelitis of the left fifth metatarsal (01/20/2019). Incompletely treated with IV antibiotics as per recommendations because of noncompliance. S/P Daptomycin/gentamicin until 02/23/2019, then changed to IV Vanco plus Rocephin 03/22/2019 to complete the course of antibiotics. ID following. 2. Chronic bilateral lower extremity ulcers. Continue local wound care. Status post podiatry evaluation. 3. Multiple bilateral gluteal wounds. Continue antimicrobials as per ID. Status post debridement on 02/07/2019. Cultures showing polymicrobial's including MRSA and VRE. 4. Hypertension. Continue antihypertensives. 5. Diabetes mellitus. Hemoglobin A1c 6.5. Continue metformin. Refusing insulin. 6. Peripheral neuropathy. Continue gabapentin. 7. Normocytic anemia. Probably anemia of chronic disease. 8. Nicotine use. Cessation advised. 9. Debility with contractures. Wheelchair-bound. Physical therapy. 10. 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 11. Chronic neurogenic bladder. Chanel cath in place. 12. Noncompliance with medications and medical management. Counseling. 13. Fluids, electrolytes, and nutrition. Carbohydrate controlled diet. 14. DVT prophylaxis. Subcutaneous Lovenox (patient refusing). 15. Plan. Continue antimicrobials as per ID. Continue local wound care. Await clinical improvement/placement to a nursing facility. The patient was seen in collaboration with Dr. Banks. Result Diagram: 02/24/19 0604 Results 24hrs Laboratory Tests Test 02/23/19 20:16 02/24/19 06:04 02/24/19 08:14 02/24/19 12:45 Bedside Glucose 126 97 91 Sodium Level 140 Potassium Level 4.1 Chloride Level 110 Carbon Dioxide Level 22 Anion Gap 8 Blood Urea Nitrogen 26 H Creatinine 1.05 Est Glomerular > 60 Filtrat Rate mL/min Glucose Level 89 Calcium Level 8.6 Test 02/24/19 17:28 Bedside Glucose 147 Exam/Review of Systems Exam Vitals Vital Signs Date Temp Pulse Resp B/P (MAP) Pulse Ox O2 O2 Flow FiO2 Time Delivery Rate 02/24/19 98.9 83 18 116/96 100 14:44 (103) 02/22/19 Room Air 20:00 Intake and Output 02/23/19 02/23/19 02/24/19 1515:00 23:00 07:00 IntakeIntake Total 360 ml 400 ml 770 ml OutputOutput Total 1000 ml BalanceBalance 360 ml -600 ml 770 ml Results Results 24hrs Laboratory Tests Test 02/23/19 20:16 02/24/19 06:04 02/24/19 08:14 02/24/19 12:45 Bedside Glucose 126 97 91 Sodium Level 140 Potassium Level 4.1 Chloride Level 110 Carbon Dioxide Level 22 Anion Gap 8 Blood Urea Nitrogen 26 H Creatinine 1.05 Est Glomerular > 60 Filtrat Rate mL/min Glucose Level 89 Calcium Level 8.6 Test 02/24/19 17:28 Bedside Glucose 147 Medications Medication Current Medications IV Flush (NS 3 ml) 3 ml PER PROTOCOL IV Last administered on 02/14/19at 08:13; Admin Dose 3 ML; Start 02/06/19 at 05:30 Ondansetron HCl (Zofran Inj) 4 mg Q6H PRN IV NAUSEA/VOMITING; Start 02/06/19 at 05:30 Acetaminophen (Tylenol Tab) 650 mg Q6H PRN PO .PAIN 1-3 OR TEMP Last admi nistered on 02/06/19 21:57; Admin Dose 650 MG; Start 02/06/19 at 05:30 Acetaminophen/ Hydrocodone Bitart ([place] (5/325)) 1 tab Q6H PRN PO .MOD PAIN 4- 6 Last administered on 02/20/19 12:32; Admin Dose 1 TAB; Start 02/06/19 at 05:30 Morphine Sulfate (morphine) 2 mg Q4H PRN IV .SEVERE PAIN 7-10; Start 02/06/19 at 05:30 Docusate Sodium (Colace) 100 mg Q12H PRN PO .CONSTIPATION; Start 02/06/19 at 05:30 Magnesium Hydroxide (Milk Of Mag) 30 ml DAILY PRN PO .CONSTIPATION Last administered on 02/09/19 13:58; Admin Dose 30 ML; Start 02/06/19 at 05:30 Lorazepam (Ativan) 0.5 mg Q6H PRN IV ANXIETY; Start 02/06/19 at 05:30 Albuterol/ Ipratropium (Duoneb) 3 ml Q4H RESP THERAPY PRN HHN SHORTNESS OF BREATH; Start 02/06/19 at 05:30 Hydralazine HCl (Apresoline) 10 mg Q6H PRN IV ELEVATED BLOOD PRESSURE Last administered on 02/23/19 20:20; Admin Dose 10 MG; Start 02/06/19 at 05:30 Clonidine (Catapres) 0.1 mg Q6H PRN PO ELEVATED SYSTOLIC BP Last administered on 02/18/19 13:40; Admin Dose 0.1 MG; Start 02/06/19 at 05:30 Nitroglycerin (Nitroglycerin (Sl Tab) 0.4 Mg) 1 tab Q5M PRN SL ANGINA; Start 02/06/19 at 05:30 Ascorbic Acid (Vitamin C) 500 mg DAILY PO Last administered on 02/10/19 08:25; Admin Dose 500 MG; Start 02/06/19 at 09:00 Gabapentin (Neurontin) 100 mg TID PO Last administered on 02/24/19 12:50; Admin Dose 100 MG; Start 02/06/19 at 09:00 Multivitamins Therapeutic (Theragran) 1 tab DAILY PO Last administered on 02/10/19at 08:25; Admin Dose 1 TAB; Start 02/06/19 at 09:00 Miscellaneous Information Patients own medicat... BID@10,16 XX ; Start 02/06/19 at 16:00 Diagnostic Test (Pha) (Accu-Chek) 1 ea 02 XX ; Start 02/07/19 at 02:00 Insulin Aspart (Novolog Insulin Pen) NOVOLOG *MILD* ALGORITHM WITH MEALS BEDTIME SC ; Start 02/06/19 at 18:00 Miscellaneous Information 1 ea NOTE XX ; Start 02/06/19 at 14:30 Glucose (Glutose) 15 gm Q15M PRN PO DECREASED GLUCOSE; Start 02/06/19 at 14:30 Glucose (Glutose) 22.5 gm Q15M PRN PO DECREASED GLUCOSE; Start 02/06/19 at 14:30 Dextrose (D50w Syringe) 25 ml Q15M PRN IV DECREASED GLUCOSE; Start 02/06/19 at 14:30 Dextrose (D50w Syringe) 50 ml Q15M PRN IV DECREASED GLUCOSE; Start 02/06/19 at 14:30 Glucagon (Glucagen) 1 mg Q15M PRN IM DECREASED GLUCOSE; Start 02/06/19 at 14:30 Glucose (Glutose) 15 gm Q15M PRN BUCCAL DECREASED GLUCOSE; Start 02/06/19 at 14:30 Collagenase (Santyl) 1 applic DAILY TOP Last administered on 02/23/19at 08:51; Admin Dose 1 APPLIC; Start 02/06/19 at 18:30 Collagenase (Santyl) 1 applic PRN PRN TOP WHEN SOILED; Start 02/06/19 at 18:30 Lisinopril (Zestril) 40 mg DAILY PO Last administered on 02/23/19at 08:47; Admin Dose 40 MG; Start 02/08/19 at 09:00 Metformin HCl (Glucophage) 1,000 mg WITH BREAKFAST DINNE PO Last administered on 02/24/19at 08:18; Admin Dose 1,000 MG; Start 02/07/19 at 18:00 Clotrimazole (Lotrimin Cr) 1 applic BID TOP Last administered on 02/23/19at 08:51; Admin Dose 1 APPLIC; Start 02/07/19 at 11:30 Sodium Hypochlorite (Dakins Diluted ()) 1 applic DAILY TP Last administered on 02/24/19at 08:22; Admin Dose 1 APPLIC; Start 02/09/19 at 09:00 Gentamicin Sulfate (Gentamicin Iv Per Pharmacy) GENTAMICIN PER PHARMACY NOTE XX ; Start 02/10/19 at 14:00 Nifedipine (Procardia Xl) 30 mg BID PO Last administered on 02/21/19at 08:13; Admin Dose 30 MG; Start 02/11/19 at 15:00 Polyethylene Glycol (Miralax) 17 gm DAILY PO Last administered on 02/12/19at 12:40; Admin Dose 17 GM; Start 02/12/19 at 12:30 Famotidine (Pepcid) 20 mg DAILY PO Last administered on 02/23/19at 08:48; Admin Dose 20 MG; Start 02/14/19 at 09:00 Metoprolol Tartrate (Lopressor) 100 mg BID PO Last administered on 02/23/19at 08:48; Admin Dose 100 MG; Start 02/13/19 at 21:00 Aspirin (Halfprin) 81 mg DAILY PO ; Start 02/14/19 at 09:00 Lactobacillus Acidophilus/ Rhamnosus (Culturelle) 1 cap BID PO Last administered on 02/24/19at 08:19; Admin Dose 1 CAP; Start 02/13/19 at 21:00 Enoxaparin Sodium (Lovenox) 40 mg DAILY SC Last administered on 02/14/19at 08:19; Admin Dose 40 MG; Start 02/14/19 at 09:00 Nicotine (Nicoderm 14 Mg/ 24hr) 1 patch DAILY PRN TRANSDERM CONTROL WITHDRAWAL SYMPTOMS; Start 02/13/19 at 15:00 Linezolid (Zyvox) 600 mg BID PO Last administered on 02/24/19 08:21; Admin Dose 600 MG; Start 02/18/19 at 12:00 IV Flush (NS 10 ml) 10 ml PRN PRN IV IV PROTOCOL; Start 02/20/19 at 12:30 Gentamicin Sulfate 360 mg/ Sodium Chloride 109 ml @ 109 mls/hr Q48H IVPB Last administered on 02/24/19at 10:28; Admin Dose 109 MLS/HR; Start 02/24/19 at 10:00 EV HARO NP Feb 24, 2019 17:41
[2019-02-24 20:54] VITALS: BP 201/98; PULSE 82; RESP 18
[2019-02-24] MEDS: hydrALAzine 20 MG INJ IV PRN (21:03)
--- NOTE | 2019-02-24 22:42 | PN ---
Date/Time of Note Date/Time of Note DATE: 02/23/19 TIME: 22:41 Assessment/Plan Lines/Catheters IV Catheter Type (from Nrs): PICC Line Chanel in Place (from Nrs): Yes Assessment/Plan Chief Complaint/Hosp Course 1. Multiple wounds s/p debridement of bilat buttock 02/07/19 healing well -further debridement prn -Continue local care> same treatment -frequent turning and off-loading -low air loss mattress -vitamin c -short term zinc -optimize nutrition -bilateral LE wounds: per podiatry 2. Osteomyelitis BLE s/p iv abx per ID -placement pending 3. Hypertension -nutrition and medication management 4. Diabetes: hga1c: 6.5 -nutrition and medication management 5. Diabetic neuropathy -safety precs (ensure no lines/tubes, etc on skin) -diabetes optimization 6. Hypochromic anemia -monitor and tx as needed 7. Depression -psych optimization 8. Hypocalcemia: likely multifactorial -nutrition optimization -treat infections 9. 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 Intermittently refusing medications. No fevers, chills, sob, congested cough, cp, palpitations, koch, dizziness, nausea, vomiting, diarrhea, dysuria. Exam/Review of Systems Vital Signs Vitals Vital Signs Date Temp Pulse Resp B/P (MAP) Pulse Ox O2 O2 Flow FiO2 Time Delivery Rate 02/24/19 98.0 82 18 201/98 89 20:54 (132) 02/22/19 Room Air 20:00 Intake and Output 02/23/19 02/23/19 02/24/19 1515:00 23:00 07:00 IntakeIntake Total 360 ml 400 ml 770 ml OutputOutput Total 1000 ml BalanceBalance 360 ml -600 ml 770 ml Exam Free Text/Dictation Constitutional: alert, oriented, well developed Psych: nl mood/affect, labile Head: normocephalic, atraumatic Eyes: nl conjunctiva, EOMI, nl lids, nl sclera ENMT: nl external ears & nose, nl lips & teeth, mucosa pink and moist Neck: supple, non-tender; No jvd Respiratory: normal air movement; No congested cough Cardiovascular: regular rate and rhythm, nl pulses; No edema Gastrointestinal: soft, non-tender Genitourinary - Male: nl penis, nl scrotum Musculoskeletal: nl extremities to inspection, other (contracted BLE) Extremities: normal pulses; No pitting pedal edema Neurological: nl mental status, nl speech, nl strength Skin: other (multiple wounds: bilat buttock: clean, no periwound erythema, scant drainage); BLE: wounds: dry No rash or lesions Lymph: No nl lymph nodes Results Result Diagram: 02/24/19 0604 MARIE GOODRICH MD Feb 24, 2019 22:42
--- NOTE | 2019-02-24 22:43 | PN ---
Date/Time of Note Date/Time of Note DATE: 02/24/19 TIME: 22:42 Assessment/Plan Lines/Catheters IV Catheter Type (from Nrs): PICC Line Chanel in Place (from Nrs): Yes Assessment/Plan Chief Complaint/Hosp Course 1. Multiple wounds s/p debridement of bilat buttock 02/07/19 healing well -further debridement prn -Continue local care -frequent turning and off-loading -low air loss mattress -vitamin c -optimize nutrition -bilateral LE wounds: per podiatry 2. Osteomyelitis BLE s/p iv abx per ID -placement pending 3. Hypertension -nutrition and medication management 4. Diabetes: hga1c: 6.5 -nutrition and medication management 5. Diabetic neuropathy -safety precs (ensure no lines/tubes, etc on skin) -diabetes optimization 6. Hypochromic anemia -monitor and tx as needed 7. Depression -psych optimization 8. Hypocalcemia: likely multifactorial -nutrition optimization -treat infections 9. 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 Intermittently refusing medications. No fevers, chills, sob, congested cough, cp, palpitations, koch, dizziness, nausea, vomiting, diarrhea, dysuria. Exam/Review of Systems Vital Signs Vitals Vital Signs Date Temp Pulse Resp B/P (MAP) Pulse Ox O2 O2 Flow FiO2 Time Delivery Rate 02/24/19 98.0 82 18 201/98 89 20:54 (132) 02/22/19 Room Air 20:00 Intake and Output 02/23/19 02/23/19 02/24/19 1515:00 23:00 07:00 IntakeIntake Total 360 ml 400 ml 770 ml OutputOutput Total 1000 ml BalanceBalance 360 ml -600 ml 770 ml Exam Free Text/Dictation Constitutional: alert, oriented, well developed Psych: nl mood/affect, labile Head: normocephalic, atraumatic Eyes: nl conjunctiva, EOMI, nl lids, nl sclera ENMT: nl external ears & nose, nl lips & teeth, mucosa pink and moist Neck: supple, non-tender; No jvd Respiratory: normal air movement; No congested cough Cardiovascular: regular rate and rhythm, nl pulses; No edema Gastrointestinal: soft, non-tender Genitourinary - Male: nl penis, nl scrotum Musculoskeletal: nl extremities to inspection, other (contracted BLE) Extremities: normal pulses; No pitting pedal edema Neurological: nl mental status, nl speech, nl strength Skin: other (multiple wounds: bilat buttock: clean, no periwound erythema, scant drainage); BLE: wounds: dry No rash or lesions Lymph: No nl lymph nodes Results Result Diagram: 02/24/19 0604 MARIE GOODRICH MD Feb 24, 2019 22:43
[2019-02-25] MEDS: ACCU-CHEK XX SCH (02:00)
--- NOTE | 2019-02-25 05:44 | PN ---
Date/Time of Note Date/Time of Note DATE: 02/25/19 TIME: 05:44 Assessment/Plan VTE Prophylaxis Risk score (from Ns)>0 risk: 2 SCD applied (from [facility] [place] No SCD contraindicated: patient refusal Pharmacological prophylaxis: LMWH Pharm contraindication: patient refusal Lines/Catheters IV [facility] Type (from [facility] PICC Line Central line still needed: Yes Urinary Cath still in place: Yes Reason Cath still needed: other (indicate) Assessment/Plan Hospital Course SUBJECTIVE: Patient refusing most of his medications. OBJECTIVE: Physical Exam General: Adequately build 63 year-old male lying in bed in no apparent distress. HEENT: Normocephalic, atraumatic. Eyes: Anicteric sclerae, conjunctivae clear. ENT: Nasal septum midline, oral mucosa moist. Neck supple. Respiratory: Bilaterally diminished. Breath sounds. No use of accessory muscles of respiration. No adventitious breath sounds. Cardiovascular: S1, S2 heard. No murmurs or gallops. Abdomen: Soft, nontender, and nondistended. Bowel sounds positive in all 4 quadrants. Genitourinary: Deferred. Extremities: Bilateral lower extremity contracted with bilateral foot wounds Neurologic: The patient is awake, alert, and oriented. Labs & Vitals per chart ASSESSMENT & PLAN 63-year-old male who is wheelchair-bound, past medical history of hypertension, sacral decubitus ulcers, diabetes, osteomyelitis, smoking history, homelessness, anemia, and neurogenic bladder, who presented with worsening diabetic foot ulcers on his bilateral feet. 1. Osteomyelitis of the left fifth metatarsal (01/20/2019). Incompletely treated with IV antibiotics as per recommendations because of noncompliance. S/P Daptomycin/gentamicin until 02/23/2019, then changed to IV Vanco plus Rocephin 03/22/2019 to complete the course of antibiotics. ID following. 2. Chronic bilateral lower extremity ulcers. Continue local wound care. Status post podiatry evaluation. 3. Multiple bilateral gluteal wounds. Continue antimicrobials as per ID. Status post debridement on 02/07/2019. Cultures showing polymicrobial's including MRSA and VRE. 4. Hypertension. Continue antihypertensives. 5. Diabetes mellitus. Hemoglobin A1c 6.5. Continue metformin. Refusing insulin. 6. Peripheral neuropathy. Continue gabapentin. 7. Normocytic anemia. Probably anemia of chronic disease. 8. Nicotine use. Cessation advised. 9. Debility with contractures. Wheelchair-bound. Physical therapy. 10. 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 11. Chronic neurogenic bladder. Chanel cath in place. 12. Noncompliance with medications and medical management. Counseling. 13. Fluids, electrolytes, and nutrition. Carbohydrate controlled diet. 14. DVT prophylaxis. Subcutaneous Lovenox (patient refusing). 15. Plan. Continue antimicrobials as per ID. Continue local wound care. Await clinical improvement/placement to a nursing facility. The patient was seen in collaboration with Dr. Banks. Result Diagram: 02/24/19 0604 Results 24hrs Laboratory Tests Test 02/24/19 06:04 02/24/19 08:14 02/24/19 12:45 02/24/19 17:28 Sodium Level 140 Potassium Level 4.1 Chloride Level 110 Carbon Dioxide Level 22 Anion Gap 8 Blood Urea Nitrogen 26 H Creatinine 1.05 Est Glomerular > 60 Filtrat Rate mL/min Glucose Level 89 Calcium Level 8.6 Bedside Glucose 97 91 147 Test 02/24/19 20:49 Bedside Glucose 118 Exam/Review of Systems Exam Vitals Vital Signs Date Temp Pulse Resp B/P (MAP) Pulse Ox O2 O2 Flow FiO2 Time Delivery Rate 02/24/19 98.0 82 18 201/98 89 20:54 (132) 02/22/19 Room Air 20:00 Intake and Output 02/24/19 02/24/19 02/25/19 1515:00 23:00 07:00 IntakeIntake Total 409 ml OutputOutput Total 1800 ml 400 ml BalanceBalance -1391 ml -400 ml Results Results 24hrs Laboratory Tests Test 02/24/19 06:04 02/24/19 08:14 02/24/19 12:45 02/24/19 17:28 Sodium Level 140 Potassium Level 4.1 Chloride Level 110 Carbon Dioxide Level 22 Anion Gap 8 Blood Urea Nitrogen 26 H Creatinine 1.05 Est Glomerular > 60 Filtrat Rate mL/min Glucose Level 89 Calcium Level 8.6 Bedside Glucose 97 91 147 Test 02/24/19 20:49 Bedside Glucose 118 Medications Medication Current Medications IV Flush (NS 3 ml) 3 ml PER PROTOCOL IV Last administered on 02/14/19at 08:13; Admin Dose 3 ML; Start 02/06/19 at 05:30 Ondansetron HCl (Zofran Inj) 4 mg Q6H PRN IV NAUSEA/VOMITING; Start 02/06/19 at 05:30 Acetaminophen (Tylenol Tab) 650 mg Q6H PRN PO .PAIN 1-3 OR TEMP Last administered on 02/06/19 21:57; Admin Dose 650 MG; Start 02/06/19 at 05:30 Acetaminophen/ Hydrocodone Bitart ([place] (5/325)) 1 tab Q6H PRN PO .MOD PAIN 4- 6 Last administered on 02/20/19 12:32; Admin Dose 1 TAB; Start 02/06/19 at 05:30 Morphine Sulfate (morphine) 2 mg Q4H PRN IV .SEVERE PAIN 7-10; Start 02/06/19 at 05:30 Docusate Sodium (Colace) 100 mg Q12H PRN PO .CONSTIPATION; Start 02/06/19 at 05:30 Magnesium Hydroxide (Milk Of Mag) 30 ml DAILY PRN PO .CONSTIPATION Last administered on 02/09/19 13:58; Admin Dose 30 ML; Start 02/06/19 at 05:30 Lorazepam (Ativan) 0.5 mg Q6H PRN IV ANXIETY; Start 02/06/19 at 05:30 Albuterol/ Ipratropium (Duoneb) 3 ml Q4H RESP THERAPY PRN HHN SHORTNESS OF BREATH; Start 02/06/19 at 05:30 Hydralazine HCl (Apresoline) 10 mg Q6H PRN IV ELEVATED BLOOD PRESSURE Last administered on 02/24/19 21:03; Admin Dose 10 MG; Start 02/06/19 at 05:30 Clonidine (Catapres) 0.1 mg Q6H PRN PO ELEVATED SYSTOLIC BP Last administered on 02/18/19 13:40; Admin Dose 0.1 MG; Start 02/06/19 at 05:30 Nitroglycerin (Nitroglycerin (Sl Tab) 0.4 Mg) 1 tab Q5M PRN SL ANGINA; Start 02/06/19 at 05:30 Ascorbic Acid (Vitamin C) 500 mg DAILY PO Last administered on 02/10/19 08:25; Admin Dose 500 MG; Start 02/06/19 at 09:00 Gabapentin (Neurontin) 100 mg TID PO Last administered on 02/24/19 20:51; Ad min Dose 100 MG; Start 02/06/19 at 09:00 Multivitamins Therapeutic (Theragran) 1 tab DAILY PO Last administered on 02/10/19at 08:25; Admin Dose 1 TAB; Start 02/06/19 at 09:00 Miscellaneous Information Patients own medicat... BID@10,16 XX ; Start 02/06/19 at 16:00 Diagnostic Test (Pha) (Accu-Chek) 1 ea 02 XX ; Start 02/07/19 at 02:00 Insulin Aspart (Novolog Insulin Pen) NOVOLOG *MILD* ALGORITHM WITH MEALS BEDTIME SC ; Start 02/06/19 at 18:00 Miscellaneous Information 1 ea NOTE XX ; Start 02/06/19 at 14:30 Glucose (Glutose) 15 gm Q15M PRN PO DECREASED GLUCOSE; Start 02/06/19 at 14:30 Glucose (Glutose) 22.5 gm Q15M PRN PO DECREASED GLUCOSE; Start 02/06/19 at 14:30 Dextrose (D50w Syringe) 25 ml Q15M PRN IV DECREASED GLUCOSE; Start 02/06/19 at 14:30 Dextrose (D50w Syringe) 50 ml Q15M PRN IV DECREASED GLUCOSE; Start 02/06/19 at 14:30 Glucagon (Glucagen) 1 mg Q15M PRN IM DECREASED GLUCOSE; Start 02/06/19 at 14:30 Glucose (Glutose) 15 gm Q15M PRN BUCCAL DECREASED GLUCOSE; Start 02/06/19 at 14:30 Collagenase (Santyl) 1 applic DAILY TOP Last administered on 02/23/19at 08:51; Admin Dose 1 APPLIC; Start 02/06/19 at 18:30 Collagenase (Santyl) 1 applic PRN PRN TOP WHEN SOILED; Start 02/06/19 at 18:30 Lisinopril (Zestril) 40 mg DAILY PO Last administered on 02/23/19at 08:47; Admin Dose 40 MG; Start 02/08/19 at 09:00 Metformin HCl (Glucophage) 1,000 mg WITH BREAKFAST DINNE PO Last administered on 02/24/19at 08:18; Admin Dose 1,000 MG; Start 02/07/19 at 18:00 Clotrimazole (Lotrimin Cr) 1 applic BID TOP Last administered on 02/23/19at 08:51; Admin Dose 1 APPLIC; Start 02/07/19 at 11:30 Sodium Hypochlorite (Dakins Diluted ()) 1 applic DAILY TP Last administered on 02/24/19 08:22; Admin Dose 1 APPLIC; Start 02/09/19 at 09:00 Gentamicin Sulfate (Gentamicin Iv Per Pharmacy) GENTAMICIN PER PHARMACY NOTE XX ; Start 02/10/19 at 14:00 Nifedipine (Procardia Xl) 30 mg BID PO Last administered on 02/21/19 08:13; Admin Dose 30 MG; Start 02/11/19 at 15:00 Polyethylene Glycol (Miralax) 17 gm DAILY PO Last administered on 02/12/19 12:40; Admin Dose 17 GM; Start 02/12/19 at 12:30 Famotidine (Pepcid) 20 mg DAILY PO Last administered on 02/23/19 08:48; Admin Dose 20 MG; Start 02/14/19 at 09:00 Metoprolol Tartrate (Lopressor) 100 mg BID PO Last administered on 02/23/19 08:48; Admin Dose 100 MG; Start 02/13/19 at 21:00 Aspirin (Halfprin) 81 mg DAILY PO ; Start 02/14/19 at 09:00 Lactobacillus Acidophilus/ Rhamnosus (Culturelle) 1 cap BID PO Last administered on 02/24/19at 20:52; Admin Dose 1 CAP; Start 02/13/19 at 21:00 Enoxaparin Sodium (Lovenox) 40 mg DAILY SC Last administered on 02/14/19 08:19; Admin Dose 40 MG; Start 02/14/19 at 09:00 Nicotine (Nicoderm 14 Mg/ 24hr) 1 patch DAILY PRN TRANSDERM CONTROL WITHDRAWAL SYMPTOMS; Start 02/13/19 at 15:00 Linezolid (Zyvox) 600 mg BID PO Last administered on 02/24/19 20:51; Admin Dose 600 MG; Start 02/18/19 at 12:00 IV Flush (NS 10 ml) 10 ml PRN PRN IV IV PROTOCOL; Start 02/20/19 at 12:30 Gentamicin Sulfate 360 mg/ Sodium Chloride 109 ml @ 109 mls/hr Q48H IVPB Last administered on 02/24/19at 10:28; Admin Dose 109 MLS/HR; Start 02/24/19 at 10:00 EV HARO NP Feb 25, 2019 05:44
[2019-02-25 07:52] VITALS: BP 180/88; PULSE 84; RESP 18
[2019-02-25] MEDS: INSULIN ASPART [NOVOLOG] 3 ML PEN SC SCH ×4 (08:00→21:00)
[2019-02-25] MEDS: metFORMIN 500 MG TAB PO SCH ×2 (08:17→17:18)
[2019-02-25] MEDS: POLYETHYLENE GLYCOL 17 GM PACKET PO SCH (08:18)
[2019-02-25] MEDS: LACTOBACILLUS RHAMNOSUS CAP PO SCH ×2 (08:18→21:42)
[2019-02-25] MEDS: METOPROLOL 100 MG TAB PO SCH ×3 (08:18→21:43)
[2019-02-25] MEDS: GABAPENTIN 100 MG CAP PO SCH ×3 (08:18→21:42)
[2019-02-25] MEDS: FAMOTIDINE 20 MG TAB PO SCH (08:18)
[2019-02-25] MEDS: ASPIRIN (EC) 81 MG TAB PO SCH (08:18)
[2019-02-25] MEDS: LISINOPRIL 20 MG TAB PO SCH (08:19)
[2019-02-25] MEDS: ENOXAPARIN 40 MG/0.4 ML SYG SC SCH (08:19)
[2019-02-25] MEDS: ASCORBIC ACID 500 MG TAB PO SCH (08:19)
[2019-02-25] MEDS: MULTIVITAMINS THERAPEUTIC TAB PO SCH (08:19)
[2019-02-25] MEDS: NIFEdipine (XL) 30 MG TAB PO SCH ×3 (08:19→21:43)
[2019-02-25] MEDS: ZYVOX 600 MG TAB PO SCH ×2 (08:19→21:42)
[2019-02-25] MEDS: DAKINS 0.0125%(1/40) 473 ML SOLUTION TP SCH (08:20)
[2019-02-25] MEDS: CLOTRIMAZOLE 1% 30 GM CR TOP SCH ×2 (08:20→21:49)
[2019-02-25] MEDS: COLLAGENASE 5 GM (UD JAR) TOP SCH (08:20)
[2019-02-25] MEDS: hydrALAzine 20 MG INJ IV PRN ×2 (08:20→21:44)
--- NOTE | 2019-02-25 09:38 | PN ---
Date/Time of Note Date/Time of Note DATE: 02/25/19 TIME: 09:34 Assessment/Plan Lines/Catheters IV Catheter Type (from Nrs): PICC Line Chanel in Place (from Nrs): Yes Assessment/Plan Chief Complaint/Hosp Course 1. Multiple wounds s/p debridement of bilat buttock 02/07/19 healing well -further debridement prn -Will repeat wound cultures -Continue local care -frequent turning and off-loading -low air loss mattress -vitamin c -optimize nutrition -bilateral LE wounds: per podiatry 2. Osteomyelitis BLE s/p iv abx per ID -placement pending 3. Hypertension -nutrition and medication management 4. Diabetes: hga1c: 6.5 -nutrition and medication management 5. Diabetic neuropathy -safety precs (ensure no lines/tubes, etc on skin) -diabetes optimization 6. Hypochromic anemia -monitor and tx as needed 7. Depression -psych optimization 8. Hypocalcemia: likely multifactorial -nutrition optimization -treat infections 9. Homelessness -nephrology social worker Thank you. Patient seen and examined in collaboration with Dr. Kj Moran Subjective 24 Hr Interval Summary Continues to refuse nursing care. No fevers, chills, sob, congested cough, cp, palpitations, koch, dizziness, nausea, vomiting, diarrhea, dysuria. BP persistently high Exam/Review of Systems Vital Signs Vitals Vital Signs Date Temp Pulse Resp B/P (MAP) Pulse Ox O2 O2 Flow FiO2 Time Delivery Rate 02/25/19 97.8 84 18 180/88 100 07:52 (118) 02/22/19 Room Air 20:00 Intake and Output 02/24/19 02/24/19 02/25/19 1515:00 23:00 07:00 IntakeIntake Total 409 ml OutputOutput Total 1800 ml 400 ml BalanceBalance -1391 ml -400 ml Exam Free Text/Dictation Constitutional: alert, oriented, well developed Psych: nl mood/affect, labile Head: normocephalic, atraumatic Eyes: nl conjunctiva, EOMI, nl lids, nl sclera ENMT: nl external ears & nose, nl lips & teeth, mucosa pink and moist Neck: supple, non-tender; No jvd Respiratory: normal air movement; No congested cough Cardiovascular: regular rate and rhythm, nl pulses; No edema Gastrointestinal: soft, non-tender Genitourinary - Male: nl penis, nl scrotum Musculoskeletal: nl extremities to inspection, other (contracted BLE) Extremities: normal pulses; No pitting pedal edema Neurological: nl mental status, nl speech, nl strength Skin: other (multiple wounds: bilat buttock: clean, no periwound erythema, no drainage); BLE: wounds: dry No rash or lesions Lymph: No nl lymph nodes Results Result Diagram: 02/25/19 0812 CALLY NOEL NP Feb 25, 2019 09:38
[2019-02-25] MEDS: HYDROCODONE/APAP (5/325) TAB PO PRN (13:32)
[2019-02-25 14:00] VITALS: BP 158/88; PULSE 89; RESP 18
--- NOTE | 2019-02-25 15:35 | CONS ---
Assessment/Plan Assessment/Plan Hospital Course (Demo Recall) 1300 Alert, eating lunch. Left and right buttock wounds grew MRSA, Pseudomonas, Enterococcus, Corynebacterium group JK Blood culture on admission grew staph species 1 out of 2 sets Antimicrobials: PO Zyvox, Gentamicin ALLERGIES: HE IS NOT ALLERGIC TO ANY ANTIBIOTICS. PHYSICAL EXAMINATION: GENERAL: Well-developed elderly -[place] man who is in no distress. HEENT: Head is atraumatic, normocephalic. Sclerae are anicteric. Buccal mucosa is dry. NECK: Supple. CHEST: Rise symmetrical. Breath sounds diminished to bases. HEART: S1, S2. ABDOMEN: Soft. Bowel tones are present. EXTREMITIES: With bilateral lower extremities dressing intact. Assessment: 1. Bilateral lower extremities diabetic ulcerations 2. Left foot osteomyelitis 3. Diabetes with diabetic neuropathy 4. Bilateral buttocks ulcerations, status post debridement 5. Coag negative staph bacteremia consistent with contaminant 6. Noncompliance Plan: Remains unchanged, continue antibiotics as per our previous recommendations on 02/18/19 Consultation Date/Type/Reason Admit Date/Time Feb 06, 2019 at 03:18 Initial Consult Date 02/07/19 Type of Consult id Requesting Provider: MASOUD SOLANO DPM Date/Time of Note DATE: 02/25/19 TIME: 15:34 Exam/Review of Systems Exam Vitals Vital Signs Date Temp Pulse Resp B/P (MAP) Pulse Ox O2 O2 Flow FiO2 Time Delivery Rate 02/25/19 97.9 89 18 158/88 99 14:00 (111) 02/22/19 Room Air 20:00 Intake and Output 02/24/19 02/24/19 02/25/19 1515:00 23:00 07:00 IntakeIntake Total 409 ml OutputOutput Total 1800 ml 400 ml BalanceBalance -1391 ml -400 ml Results Result Diagram: 02/25/19 0812 Results 24hrs Laboratory Tests Test 02/24/19 17:28 02/24/19 20:49 02/25/19 08:12 02/25/19 08:15 Bedside Glucose 147 118 112 Sodium Level 141 Potassium Level 4.1 Chloride Level 107 Carbon Dioxide Level 22 Anion Gap 12 Blood Urea Nitrogen 24 H Creatinine 1.14 Est Glomerular > 60 Filtrat Rate mL/min Glucose Level 91 Calcium Level 9.0 Test 02/25/19 12:06 Bedside Glucose 108 Medications Medication Current Medications IV Flush (NS 3 ml) 3 ml PER PROTOCOL IV Last administered on 02/14/19 08:13; Admin Dose 3 ML; Start 02/06/19 at 05:30 Ondansetron HCl (Zofran Inj) 4 mg Q6H PRN IV NAUSEA/VOMITING; Start 02/06/19 at 05:30 Acetaminophen (Tylenol Tab) 650 mg Q6H PRN PO .PAIN 1-3 OR TEMP Last administered on 02/06/19 21:57; Admin Dose 650 MG; Start 02/06/19 at 05:30 Acetaminophen/ Hydrocodone Bitart ([place] (5/325)) 1 tab Q6H PRN PO .MOD PAIN 4- 6 Last administered on 02/25/19 13:32; Admin Dose 1 TAB; Start 02/06/19 at 05:30 Morphine Sulfate (morphine) 2 mg Q4H PRN IV .SEVERE PAIN 7-10; Start 02/06/19 at 05:30 Docusate Sodium (Colace) 100 mg Q12H PRN PO .CONSTIPATION; Start 02/06/19 at 05:30 Magnesium Hydroxide (Milk Of Mag) 30 ml DAILY PRN PO .CONSTIPATION Last administered on 02/09/19 13:58; Admin Dose 30 ML; Start 02/06/19 at 05:30 Lorazepam (Ativan) 0.5 mg Q6H PRN IV ANXIETY; Start 02/06/19 at 05:30 Albuterol/ Ipratropium (Duoneb) 3 ml Q4H RESP THERAPY PRN HHN SHORTNESS OF BREATH; Start 02/06/19 at 05:30 Hydralazine HCl (Apresoline) 10 mg Q6H PRN IV ELEVATED BLOOD PRESSURE Last administered on 02/25/19 08:20; Admin Dose 10 MG; Start 02/06/19 at 05:30 Clonidine (Catapres) 0.1 mg Q6H PRN PO ELEVATED SYSTOLIC BP Last administered on 02/18/19 13:40; Admin Dose 0.1 MG; Start 02/06/19 at 05:30 Nitroglycerin (Nitroglycerin (Sl Tab) 0.4 Mg) 1 tab Q5M PRN SL ANGINA; Start 02/06/19 at 05:30 Ascorbic Acid (Vitamin C) 500 mg DAILY PO Last administered on 02/10/19at 08:25; Admin Dose 500 MG; Start 02/06/19 at 09:00 Gabapentin (Neurontin) 100 mg TID PO Last administered on 02/25/19at 13:32; Admin Dose 100 MG; Start 02/06/19 at 09:00 Multivitamins Therapeutic (Theragran) 1 tab DAILY PO Last administered on 02/10/19at 08:25; Admin Dose 1 TAB; Start 02/06/19 at 09:00 Miscellaneous Information Patients own medicat... BID@10,16 XX ; Start 02/06/19 at 16:00 Diagnostic Test (Pha) (Accu-Chek) 1 ea 02 XX ; Start 02/07/19 at 02:00 Insulin Aspart (Novolog Insulin Pen) NOVOLOG *MILD* ALGORITHM WITH MEALS B EDTIME SC ; Start 02/06/19 at 18:00 Miscellaneous Information 1 ea NOTE XX ; Start 02/06/19 at 14:30 Glucose (Glutose) 15 gm Q15M PRN PO DECREASED GLUCOSE; Start 02/06/19 at 14:30 Glucose (Glutose) 22.5 gm Q15M PRN PO DECREASED GLUCOSE; Start 02/06/19 at 14:30 Dextrose (D50w Syringe) 25 ml Q15M PRN IV DECREASED GLUCOSE; Start 02/06/19 at 14:30 Dextrose (D50w Syringe) 50 ml Q15M PRN IV DECREASED GLUCOSE; Start 02/06/19 at 14:30 Glucagon (Glucagen) 1 mg Q15M PRN IM DECREASED GLUCOSE; Start 02/06/19 at 14:30 Glucose (Glutose) 15 gm Q15M PRN BUCCAL DECREASED GLUCOSE; Start 02/06/19 at 14:30 Collagenase (Santyl) 1 applic DAILY TOP Last administered on 02/23/19at 08:51; Admin Dose 1 APPLIC; Start 02/06/19 at 18:30 Collagenase (Santyl) 1 applic PRN PRN TOP WHEN SOILED; Start 02/06/19 at 18:30 Lisinopril (Zestril) 40 mg DAILY PO Last administered on 02/23/19at 08:47; Admin Dose 40 MG; Start 02/08/19 at 09:00 Metformin HCl (Glucophage) 1,000 mg WITH BREAKFAST DINNE PO Last administered on 02/25/19 08:17; Admin Dose 1,000 MG; Start 02/07/19 at 18:00 Clotrimazole (Lotrimin Cr) 1 applic BID TOP Last administered on 02/23/19 08:51; Admin Dose 1 APPLIC; Start 02/07/19 at 11:30 Sodium Hypochlorite (Dakins Diluted (140)) 1 applic DAILY TP Last administered on 02/25/19 08:20; Admin Dose 1 APPLIC; Start 02/09/19 at 09:00 Gentamicin Sulfate (Gentamicin Iv Per Pharmacy) GENTAMICIN PER PHARMACY NOTE XX ; Start 02/10/19 at 14:00 Nifedipine (Procardia Xl) 30 mg BID PO Last administered on 02/21/19 08:13; Admin Dose 30 MG; Start 02/11/19 at 15:00 Polyethylene Glycol (Miralax) 17 gm DAILY PO Last administered on 02/12/19at 12:40; Admin Dose 17 GM; Start 02/12/19 at 12:30 Famotidine (Pepcid) 20 mg DAILY PO Last administered on 02/23/19at 08:48; Admin Dose 20 MG; Start 02/14/19 at 09:00 Metoprolol Tartrate (Lopressor) 100 mg BID PO Last administered on 02/23/19 08:48; Admin Dose 100 MG; Start 02/13/19 at 21:00 Aspirin (Halfprin) 81 mg DAILY PO ; Start 02/14/19 at 09:00 Lactobacillus Acidophilus/ Rhamnosus (Culturelle) 1 cap BID PO Last administered on 02/25/19 08:18; Admin Dose 1 CAP; Start 02/13/19 at 21:00 Enoxaparin Sodium (Lovenox) 40 mg DAILY SC Last administered on 02/14/19 08:19; Admin Dose 40 MG; Start 02/14/19 at 09:00 Nicotine (Nicoderm 14 Mg/ 24hr) 1 patch DAILY PRN TRANSDERM CONTROL WITHDRAWAL SYMPTOMS; Start 02/13/19 at 15:00 Linezolid (Zyvox) 600 mg BID PO Last administered on 02/25/19 08:19; Admin Dose 600 MG; Start 02/18/19 at 12:00 IV Flush (NS 10 ml) 10 ml PRN PRN IV IV PROTOCOL; Start 02/20/19 at 12:30 Gentamicin Sulfate 360 mg/ Sodium Chloride 109 ml @ 109 mls/hr Q48H IVPB Last administered on 02/24/19at 10:28; Admin Dose 109 MLS/HR; Start 02/24/19 at 10:00 Miscellaneous Information (*Rx Drug Level Order Reminder*) 1 0900 ONCE XX ; Start 02/26/19 at 09:00; Stop 02/26/19 at 09:01 CHANTALE RAMIREZ NP Feb 25, 2019 15:35
[2019-02-25 20:00] VITALS: BP 191/91; PULSE 78; RESP 17
[2019-02-26] MEDS: ACCU-CHEK XX SCH (02:00)
--- NOTE | 2019-02-26 05:46 | PN ---
Date/Time of Note Date/Time of Note DATE: 02/26/19 TIME: 05:45 Assessment/Plan VTE Prophylaxis Risk score (from Ns)>0 risk: 8 SCD applied (from [facility] [place] SCD contraindicated: patient refusal Pharmacological prophylaxis: LMWH Pharm contraindication: patient refusal Lines/Catheters [facility] C[facility] Type [facility] PICC Line Central line still needed: Yes Urinary Cath still in place: Yes Reason Cath still needed: other (indicate) Assessment/Plan Hospital Course SUBJECTIVE: Patient refusing most of his medications. OBJECTIVE: Physical Exam General: Adequately build 63 year-old male lying in bed in no apparent distress. HEENT: Normocephalic, atraumatic. Eyes: Anicteric sclerae, conjunctivae clear. ENT: Nasal septum midline, oral mucosa moist. Neck supple. Respiratory: Bilaterally diminished. Breath sounds. No use of accessory muscles of respiration. No adventitious breath sounds. Cardiovascular: S1, S2 heard. No murmurs or gallops. Abdomen: Soft, nontender, and nondistended. Bowel sounds positive in all 4 quadrants. Genitourinary: Deferred. Extremities: Bilateral lower extremity contracted with bilateral foot wounds Neurologic: The patient is awake, alert, and oriented. Labs & Vitals per chart ASSESSMENT & PLAN 63-year-old male who is wheelchair-bound, past medical history of hypertension, sacral decubitus ulcers, diabetes, osteomyelitis, smoking history, homelessness, anemia, and neurogenic bladder, who presented with worsening diabetic foot ulcers on his bilateral feet. 1. Osteomyelitis of the left fifth metatarsal (01/20/2019). Incompletely treated with IV antibiotics as per recommendations because of noncompliance. S/P Daptomycin/gentamicin until 02/23/2019, then changed to IV Vanco plus Rocephin 03/22/2019 to complete the course of antibiotics. ID following. 2. Chronic bilateral lower extremity ulcers. Continue local wound care. Status post podiatry evaluation. 3. Multiple bilateral gluteal wounds. Continue antimicrobials as per ID. Status post debridement on 02/07/2019. Cultures showing polymicrobial's including MRSA and VRE. 4. Hypertension. Continue antihypertensives. 5. Diabetes mellitus. Hemoglobin A1c 6.5. Continue metformin. Refusing insulin. 6. Peripheral neuropathy. Continue gabapentin. 7. Normocytic anemia. Probably anemia of chronic disease. 8. Nicotine use. Cessation advised. 9. Debility with contractures. Wheelchair-bound. Physical therapy. 10. 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 optical worker following. 11. Chronic neurogenic bladder. Chanel cath in place. 12. Noncompliance with medications and medical management. Counseling. 13. Fluids, electrolytes, and nutrition. Carbohydrate controlled diet. 14. DVT prophylaxis. Subcutaneous Lovenox (patient refusing). 15. Plan. Continue antimicrobials as per ID. Continue local wound care. Await clinical improvement/placement to a nursing facility. The patient was seen in collaboration with Dr. Banks. Result Diagram: 02/25/19 0812 Results 24hrs Laboratory Tests Test 02/25/19 08:12 02/25/19 08:15 02/25/19 12:06 02/25/19 17:16 Sodium Level 141 Potassium Level 4.1 Chloride Level 107 Carbon Dioxide Level 22 Anion Gap 12 Blood Urea Nitrogen 24 H Creatinine 1.14 Est Glomerular > 60 Filtrat Rate mL/min Glucose Level 91 Calcium Level 9.0 Bedside Glucose 112 108 152 Test 02/25/19 21:47 Bedside Glucose 88 Exam/Review of Systems Exam Vitals Vital Signs Date Temp Pulse Resp B/P (MAP) Pulse Ox O2 O2 Flow FiO2 Time Delivery Rate 02/25/19 98.7 78 17 191/91 100 20:00 (124) 02/22/19 Room Air 20:00 Intake and Output 02/25/19 02/25/19 02/26/19 1515:00 23:00 07:00 IntakeIntake Total 980 ml 720 ml OutputOutput Total 1400 ml 700 ml BalanceBalance -420 ml 20 ml Results Results 24hrs Laboratory Tests Test 02/25/19 08:12 02/25/19 08:15 02/25/19 12:06 02/25/19 17:16 Sodium Level 141 Potassium Level 4.1 Chloride Level 107 Carbon Dioxide Level 22 Anion Gap 12 Blood Urea Nitrogen 24 H Creatinine 1.14 Est Glomerular > 60 Filtrat Rate mL/min Glucose Level 91 Calcium Level 9.0 Bedside Glucose 112 108 152 Test 02/25/19 21:47 Bedside Glucose 88 Medications Medication Current Medications IV Flush (NS 3 ml) 3 ml PER PROTOCOL IV Last administered on 02/14/19at 08:13; Admin Dose 3 ML; Start 02/06/19 at 05:30 Ondansetron HCl (Zofran Inj) 4 mg Q6H PRN IV NAUSEA/VOMITING; Start 02/06/19 at 05:30 Acetaminophen (Tylenol Tab) 650 mg Q6H PRN PO .PAIN 1-3 OR TEMP Last adminis tered on 02/06/19 21:57; Admin Dose 650 MG; Start 02/06/19 at 05:30 Acetaminophen/ Hydrocodone Bitart ([place] (5/325)) 1 tab Q6H PRN PO .MOD PAIN 4- 6 Last administered on 02/25/19 13:32; Admin Dose 1 TAB; Start 02/06/19 at 05:30 Morphine Sulfate (morphine) 2 mg Q4H PRN IV .SEVERE PAIN 7-10; Start 02/06/19 at 05:30 Docusate Sodium (Colace) 100 mg Q12H PRN PO .CONSTIPATION; Start 02/06/19 at 05:30 Magnesium Hydroxide (Milk Of Mag) 30 ml DAILY PRN PO .CONSTIPATION Last administered on 02/09/19 13:58; Admin Dose 30 ML; Start 02/06/19 at 05:30 Lorazepam (Ativan) 0.5 mg Q6H PRN IV ANXIETY; Start 02/06/19 at 05:30 Albuterol/ Ipratropium (Duoneb) 3 ml Q4H RESP THERAPY PRN HHN SHORTNESS OF BREATH; Start 02/06/19 at 05:30 Hydralazine HCl (Apresoline) 10 mg Q6H PRN IV ELEVATED BLOOD PRESSURE Last adm inistered on 02/25/19 21:44; Admin Dose 10 MG; Start 02/06/19 at 05:30 Clonidine (Catapres) 0.1 mg Q6H PRN PO ELEVATED SYSTOLIC BP Last administered on 02/18/19 13:40; Admin Dose 0.1 MG; Start 02/06/19 at 05:30 Nitroglycerin (Nitroglycerin (Sl Tab) 0.4 Mg) 1 tab Q5M PRN SL ANGINA; Start 02/06/19 at 05:30 Ascorbic Acid (Vitamin C) 500 mg DAILY PO Last administered on 02/10/19 08:25; Admin Dose 500 MG; Start 02/06/19 at 09:00 Gabapentin (Neurontin) 100 mg TID PO Last administered on 02/25/19 21:42; Admin Dose 100 MG; Start 02/06/19 at 09:00 Multivitamins Therapeutic (Theragran) 1 tab DAILY PO Last administered on 02/10/19at 08:25; Admin Dose 1 TAB; Start 02/06/19 at 09:00 Miscellaneous Information Patients own medicat... BID@10,16 XX ; Start 02/06/19 at 16:00 Diagnostic Test (Pha) (Accu-Chek) 1 ea 02 XX ; Start 02/07/19 at 02:00 Insulin Aspart (Novolog Insulin Pen) NOVOLOG *MILD* ALGORITHM WITH MEALS BEDTIME SC ; Start 02/06/19 at 18:00 Miscellaneous Information 1 ea NOTE XX ; Start 02/06/19 at 14:30 Glucose (Glutose) 15 gm Q15M PRN PO DECREASED GLUCOSE; Start 02/06/19 at 14:30 Glucose (Glutose) 22.5 gm Q15M PRN PO DECREASED GLUCOSE; Start 02/06/19 at 14:30 Dextrose (D50w Syringe) 25 ml Q15M PRN IV DECREASED GLUCOSE; Start 02/06/19 at 14:30 Dextrose (D50w Syringe) 50 ml Q15M PRN IV DECREASED GLUCOSE; Start 02/06/19 at 14:30 Glucagon (Glucagen) 1 mg Q15M PRN IM DECREASED GLUCOSE; Start 02/06/19 at 14:30 Glucose (Glutose) 15 gm Q15M PRN BUCCAL DECREASED GLUCOSE; Start 02/06/19 at 14:30 Collagenase (Santyl) 1 applic DAILY TOP Last administered on 02/23/19at 08:51; Admin Dose 1 APPLIC; Start 02/06/19 at 18:30 Collagenase (Santyl) 1 applic PRN PRN TOP WHEN SOILED; Start 02/06/19 at 18:30 Lisinopril (Zestril) 40 mg DAILY PO Last administered on 02/23/19at 08:47; Admin Dose 40 MG; Start 02/08/19 at 09:00 Metformin HCl (Glucophage) 1,000 mg WITH BREAKFAST DINNE PO Last administered on 02/25/19at 17:18; Admin Dose 1,000 MG; Start 02/07/19 at 18:00 Clotrimazole (Lotrimin Cr) 1 applic BID TOP Last administered on 02/25/19at 21:49; Admin Dose 1 APPLIC; Start 02/07/19 at 11:30 Sodium Hypochlorite (Dakins Diluted ()) 1 applic DAILY TP Last administered on 02/25/19at 08:20; Admin Dose 1 APPLIC; Start 02/09/19 at 09:00 Gentamicin Sulfate (Gentamicin Iv Per Pharmacy) GENTAMICIN PER PHARMACY NOTE XX ; Start 02/10/19 at 14:00 Nifedipine (Procardia Xl) 30 mg BID PO Last administered on 02/21/19at 08:13; Admin Dose 30 MG; Start 02/11/19 at 15:00 Polyethylene Glycol (Miralax) 17 gm DAILY PO Last administered on 02/12/19at 12:40; Admin Dose 17 GM; Start 02/12/19 at 12:30 Famotidine (Pepcid) 20 mg DAILY PO Last administered on 02/23/19at 08:48; Admin Dose 20 MG; Start 02/14/19 at 09:00 Metoprolol Tartrate (Lopressor) 100 mg BID PO Last administered on 02/23/19 08:48; Admin Dose 100 MG; Start 02/13/19 at 21:00 Aspirin (Halfprin) 81 mg DAILY PO ; Start 02/14/19 at 09:00 Lactobacillus Acidophilus/ Rhamnosus (Culturelle) 1 cap BID PO Last administered on 02/25/19at 21:42; Admin Dose 1 CAP; Start 02/13/19 at 21:00 Enoxaparin Sodium (Lovenox) 40 mg DAILY SC Last administered on 02/14/19at 08:19; Admin Dose 40 MG; Start 02/14/19 at 09:00 Nicotine (Nicoderm 14 Mg/ 24hr) 1 patch DAILY PRN TRANSDERM CONTROL WITHDRAWAL SYMPTOMS; Start 02/13/19 at 15:00 Linezolid (Zyvox) 600 mg BID PO Last administered on 02/25/19 21:42; Admin Dose 600 MG; Start 02/18/19 at 12:00 IV Flush (NS 10 ml) 10 ml PRN PRN IV IV PROTOCOL; Start 02/20/19 at 12:30 Gentamicin Sulfate 360 mg/ Sodium Chloride 109 ml @ 109 mls/hr Q48H IVPB Last administered on 02/24/19at 10:28; Admin Dose 109 MLS/HR; Start 02/24/19 at 10:00 Miscellaneous Information (*Rx Drug Level Order Reminder*) 1 0900 ONCE XX ; Start 02/26/19 at 09:00; Stop 02/26/19 at 09:01 EV HARO NP Feb 26, 2019 05:45
[2019-02-26 07:30] VITALS: BP 192/88; PULSE 89; RESP 18
[2019-02-26] MEDS: INSULIN ASPART [NOVOLOG] 3 ML PEN SC SCH ×4 (08:00→21:00)
[2019-02-26] MEDS: CLOTRIMAZOLE 1% 30 GM CR TOP SCH ×2 (08:42→21:00)
[2019-02-26] MEDS: GABAPENTIN 100 MG CAP PO SCH ×3 (08:42→21:25)
[2019-02-26] MEDS: DAKINS 0.0125%(1/40) 473 ML SOLUTION TP SCH (08:42)
[2019-02-26] MEDS: ZYVOX 600 MG TAB PO SCH ×2 (08:42→21:19)
[2019-02-26] MEDS: LACTOBACILLUS RHAMNOSUS CAP PO SCH ×2 (08:42→21:19)
[2019-02-26] MEDS: HYDROCODONE/APAP (5/325) TAB PO PRN ×3 (08:49→23:00)
[2019-02-26] MEDS: metFORMIN 500 MG TAB PO SCH ×2 (08:49→17:17)
[2019-02-26] MEDS: LISINOPRIL 20 MG TAB PO SCH (08:50)
[2019-02-26] MEDS: NIFEdipine (XL) 30 MG TAB PO SCH ×2 (08:51→21:00)
[2019-02-26] MEDS: hydrALAzine 20 MG INJ IV PRN (08:56)
[2019-02-26] MEDS: METOPROLOL 100 MG TAB PO SCH ×2 (08:59→21:00)
[2019-02-26] MEDS: ASPIRIN (EC) 81 MG TAB PO SCH (08:59)
[2019-02-26] MEDS: POLYETHYLENE GLYCOL 17 GM PACKET PO SCH (08:59)
[2019-02-26] MEDS: ENOXAPARIN 40 MG/0.4 ML SYG SC SCH (09:00)
[2019-02-26] MEDS: FAMOTIDINE 20 MG TAB PO SCH (09:00)
[2019-02-26] MEDS: MULTIVITAMINS THERAPEUTIC TAB PO SCH (09:00)
[2019-02-26] MEDS: COLLAGENASE 5 GM (UD JAR) TOP SCH (09:00)
[2019-02-26] MEDS: ASCORBIC ACID 500 MG TAB PO SCH (09:00)
[2019-02-26] MEDS: GENTAMICIN 360 MG in SOD CHLORIDE 0.9% 100 ML IVPB SCH (11:43)
--- NOTE | 2019-02-26 12:17 | PN ---
Date/Time of Note Date/Time of Note DATE: 02/26/19 TIME: 12:14 Assessment/Plan Lines/Catheters IV Catheter Type (from Nrs): PICC Line Chanel in Place (from Nrs): Yes Assessment/Plan Chief Complaint/Hosp Course 1. Multiple wounds s/p debridement of bilat buttock 02/07/19 healing well -further debridement prn -Will repeat wound cultures> pending -Continue local care -frequent turning and off-loading -low air loss mattress -vitamin c -optimize nutrition -bilateral LE wounds: per podiatry 2. Osteomyelitis BLE s/p iv abx per ID -placement pending 3. Hypertension -nutrition and medication management 4. Diabetes: hga1c: 6.5 -nutrition and medication management 5. Diabetic neuropathy -safety precs (ensure no lines/tubes, etc on skin) -diabetes optimization 6. Hypochromic anemia -monitor and tx as needed 7. Depression -psych optimization 8. Hypocalcemia: likely multifactorial -nutrition optimization -treat infections 9. Homelessness -director social service Thank you. Patient seen and examined in collaboration with Dr. Kj Moran Subjective 24 Hr Interval Summary Continues to have high BP. No fevers, chills, sob, congested cough, cp, palpitations, koch, dizziness, n/v/d/dysuria. Exam/Review of Systems Vital Signs Vitals Vital Signs Date Temp Pulse Resp B/P (MAP) Pulse Ox O2 O2 Flow FiO2 Time Delivery Rate 02/26/19 97.9 89 18 192/88 98 Room Air 07:30 (122) Intake and Output 02/25/19 02/25/19 02/26/19 1515:00 23:00 07:00 IntakeIntake Total 980 ml 720 ml OutputOutput Total 1400 ml 700 ml BalanceBalance -420 ml 20 ml Exam Free Text/Dictation Constitutional: alert, oriented, well developed Psych: nl mood/affect, labile Head: normocephalic, atraumatic Eyes: nl conjunctiva, EOMI, nl lids, nl sclera ENMT: nl external ears & nose, nl lips & teeth, mucosa pink and moist Neck: supple, non-tender; No jvd Respiratory: normal air movement; No congested cough Cardiovascular: regular rate and rhythm, nl pulses; No edema Gastrointestinal: soft, non-tender Genitourinary - Male: nl penis, nl scrotum Musculoskeletal: nl extremities to inspection, other (contracted BLE) Extremities: normal pulses; No pitting pedal edema Neurological: nl mental status, nl speech, nl strength Skin: other (multiple wounds: bilat buttock: clean, no periwound erythema, no drainage); BLE: wounds: dry No rash or lesions Lymph: No nl lymph nodes Results Result Diagram: 02/26/19 0957 CALLY NOEL NP Feb 26, 2019 12:17
[2019-02-26 13:44] VITALS: BP 169/79; PULSE 99; RESP 18
--- NOTE | 2019-02-26 14:59 | CONS ---
Assessment/Plan Assessment/Plan Hospital Course (Demo Recall) No acute events. Patient looks comfortable, no fevers overnight Left and right buttock wounds grew MRSA, Pseudomonas, Enterococcus, Corynebacterium group JK Blood culture on admission grew staph species 1 out of 2 sets Antimicrobials: PO Zyvox, Gentamicin ALLERGIES: HE IS NOT ALLERGIC TO ANY ANTIBIOTICS. PHYSICAL EXAMINATION: GENERAL: Well-developed elderly -[place] man who is in no distress. HEENT: Head is atraumatic, normocephalic. Sclerae are anicteric. Buccal mucosa is dry. NECK: Supple. CHEST: Rise symmetrical. Breath sounds diminished to bases. HEART: S1, S2. ABDOMEN: Soft. Bowel tones are present. EXTREMITIES: With bilateral lower extremities dressing intact. Assessment: 1. Bilateral lower extremities diabetic ulcerations 2. Left foot osteomyelitis 3. Diabetes with diabetic neuropathy 4. Bilateral buttocks ulcerations, status post debridement 5. Coag negative staph bacteremia consistent with contaminant 6. Noncompliance Plan: Remains unchanged, continue antibiotics as per our previous recommendations on 02/18/19. Zyvox and Gentamicin ==> last dose February 23, then change to IV Vanco and IV Rocephin till March 22 to complete course for OM Consultation Date/Type/Reason Admit Date/Time Feb 06, 2019 at 03:18 Initial Consult Date 02/07/19 Type of Consult id Requesting Provider: MASOUD SOLANO DPM Date/Time of Note DATE: 02/26/19 TIME: 14:58 Exam/Review of Systems Exam Vitals Vital Signs Date Temp Pulse Resp B/P (MAP) Pulse Ox O2 O2 Flow FiO2 Time Delivery Rate 02/26/19 97.9 99 18 169/79 98 Room Air 13:44 (109) Intake and Output 02/25/19 02/25/19 02/26/19 1515:00 23:00 07:00 IntakeIntake Total 980 ml 720 ml OutputOutput Total 1400 ml 700 ml BalanceBalance -420 ml 20 ml Results Result Diagram: 02/26/19 0957 Results 24hrs Laboratory Tests Test 02/25/19 17:16 02/25/19 21:47 02/26/19 08:38 02/26/19 09:57 Bedside Glucose 152 88 114 Sodium Level 138 Potassium Level 4.4 Chloride Level 107 Carbon Dioxide Level 22 Anion Gap 9 Blood Urea Nitrogen 30 H Creatinine 1.19 Est Glomerular > 60 Filtrat Rate mL/min Glucose Level 131 # Calcium Level 8.7 Gentamicin Level 0.7 L Trough Test 02/26/19 12:41 Bedside Glucose 221 H Medications Medication Current Medications IV Flush (NS 3 ml) 3 ml PER PROTOCOL IV Last administered on 02/14/19 08:13; Admin Dose 3 ML; Start 02/06/19 at 05:30 Ondansetron HCl (Zofran Inj) 4 mg Q6H PRN IV NAUSEA/VOMITING; Start 02/06/19 at 05:30 Acetaminophen (Tylenol Tab) 650 mg Q6H PRN PO .PAIN 1-3 OR TEMP Last administered on 02/06/19 21:57; Admin Dose 650 MG; Start 02/06/19 at 05:30 Acetaminophen/ Hydrocodone Bitart ([place] (5/325)) 1 tab Q6H PRN PO .MOD PAIN 4- 6 Last administered on 02/26/19 08:49; Admin Dose 1 TAB; Start 02/06/19 at 05:30 Morphine Sulfate (morphine) 2 mg Q4H PRN IV .SEVERE PAIN 7-10; Start 02/06/19 at 05:30 Docusate Sodium (Colace) 100 mg Q12H PRN PO .CONSTIPATION; Start 02/06/19 at 05:30 Magnesium Hydroxide (Milk Of Mag) 30 ml DAILY PRN PO .CONSTIPATION Last administered on 02/09/19 13:58; Admin Dose 30 ML; Start 02/06/19 at 05:30 Lorazepam (Ativan) 0.5 mg Q6H PRN IV ANXIETY; Start 02/06/19 at 05:30 Albuterol/ Ipratropium (Duoneb) 3 ml Q4H RESP THERAPY PRN HHN SHORTNESS OF BREATH; Start 02/06/19 at 05:30 Hydralazine HCl (Apresoline) 10 mg Q6H PRN IV ELEVATED BLOOD PRESSURE Last administered on 02/26/19 08:56; Admin Dose 10 MG; Start 02/06/19 at 05:30 Clonidine (Catapres) 0.1 mg Q6H PRN PO ELEVATED SYSTOLIC BP Last administered on 02/18/19 13:40; Admin Dose 0.1 MG; Start 02/06/19 at 05:30 Nitroglycerin (Nitroglycerin (Sl Tab) 0.4 Mg) 1 tab Q5M PRN SL ANGINA; Start 02/06/19 at 05:30 Ascorbic Acid (Vitamin C) 500 mg DAILY PO Last administered on 02/10/19at 08:25; Admin Dose 500 MG; Start 02/06/19 at 09:00 Gabapentin (Neurontin) 100 mg TID PO Last administered on 02/26/19at 12:44; Admin Dose 100 MG; Start 02/06/19 at 09:00 Multivitamins Therapeutic (Theragran) 1 tab DAILY PO Last administered on 02/10/19at 08:25; Admin Dose 1 TAB; Start 02/06/19 at 09:00 Miscellaneous Information Patients own medicat... BID@10,16 XX ; Start 02/06/19 at 16:00 Diagnostic Test (Pha) (Accu-Chek) 1 ea 02 XX ; Start 02/07/19 at 02:00 Insulin Aspart (Novolog Insulin Pen) NOVOLOG *MILD* ALGORITHM WITH MEALS BEDTIME SC Last administered on 02/26/19at 12:44; Admin Dose 3 UNIT; Start 02/06/19 at 18:00 Miscellaneous Information 1 ea NOTE XX ; Start 02/06/19 at 14:30 Glucose (Glutose) 15 gm Q15M PRN PO DECREASED GLUCOSE; Start 02/06/19 at 14:30 Glucose (Glutose) 22.5 gm Q15M PRN PO DECREASED GLUCOSE; Start 02/06/19 at 14:30 Dextrose (D50w Syringe) 25 ml Q15M PRN IV DECREASED GLUCOSE; Start 02/06/19 at 14:30 Dextrose (D50w Syringe) 50 ml Q15M PRN IV DECREASED GLUCOSE; Start 02/06/19 at 14:30 Glucagon (Glucagen) 1 mg Q15M PRN IM DECREASED GLUCOSE; Start 02/06/19 at 14:30 Glucose (Glutose) 15 gm Q15M PRN BUCCAL DECREASED GLUCOSE; Start 02/06/19 at 14:30 Collagenase (Santyl) 1 applic DAILY TOP Last administered on 02/23/19at 08:51; Admin Dose 1 APPLIC; Start 02/06/19 at 18:30 Collagenase (Santyl) 1 applic PRN PRN TOP WHEN SOILED; Start 02/06/19 at 18:30 Lisinopril (Zestril) 40 mg DAILY PO Last administered on 02/26/19 08:50; Admin Dose 40 MG; Start 02/08/19 at 09:00 Metformin HCl (Glucophage) 1,000 mg WITH BREAKFAST DINNE PO Last administered on 02/26/19 08:49; Admin Dose 1,000 MG; Start 02/07/19 at 18:00 Clotrimazole (Lotrimin Cr) 1 applic BID TOP Last administered on 02/26/19 08:42; Admin Dose 1 APPLIC; Start 02/07/19 at 11:30 Sodium Hypochlorite (Dakins Diluted ()) 1 applic DAILY TP Last administered on 02/26/19 08:42; Admin Dose 1 APPLIC; Start 02/09/19 at 09:00 Gentamicin Sulfate (Gentamicin Iv Per Pharmacy) GENTAMICIN PER PHARMACY NOTE XX ; Start 02/10/19 at 14:00 Nifedipine (Procardia Xl) 30 mg BID PO Last administered on 02/26/19 08:51; Admin Dose 30 MG; Start 02/11/19 at 15:00 Polyethylene Glycol (Miralax) 17 gm DAILY PO Last administered on 02/12/19 12:40; Admin Dose 17 GM; Start 02/12/19 at 12:30 Famotidine (Pepcid) 20 mg DAILY PO Last administered on 02/23/19 08:48; Admin Dose 20 MG; Start 02/14/19 at 09:00 Metoprolol Tartrate (Lopressor) 100 mg BID PO Last administered on 02/23/19 08:48; Admin Dose 100 MG; Start 02/13/19 at 21:00 Aspirin (Halfprin) 81 mg DAILY PO ; Start 02/14/19 at 09:00 Lactobacillus Acidophilus/ Rhamnosus (Culturelle) 1 cap BID PO Last administer ed on 02/26/19 08:42; Admin Dose 1 CAP; Start 02/13/19 at 21:00 Enoxaparin Sodium (Lovenox) 40 mg DAILY SC Last administered on 02/14/19 08:19; Admin Dose 40 MG; Start 02/14/19 at 09:00 Nicotine (Nicoderm 14 Mg/ 24hr) 1 patch DAILY PRN TRANSDERM CONTROL WITHDRAWAL SYMPTOMS; Start 02/13/19 at 15:00 Linezolid (Zyvox) 600 mg BID PO Last administered on 02/26/19at 08:42; Admin Dose 600 MG; Start 02/18/19 at 12:00 IV Flush (NS 10 ml) 10 ml PRN PRN IV IV PROTOCOL; Start 02/20/19 at 12:30 Gentamicin Sulfate 360 mg/ Sodium Chloride 109 ml @ 109 mls/hr Q48H IVPB Last administered on 02/26/19at 11:43; Admin Dose 109 MLS/HR; Start 02/24/19 at 10:00 CHANTALE RAMIREZ NP Feb 26, 2019 14:59
[2019-02-26 20:00] VITALS: BP 181/84; PULSE 84; RESP 19
[2019-02-27] MEDS: ACCU-CHEK XX SCH (02:00)
--- NOTE | 2019-02-27 07:37 | PN ---
Date/Time of Note Date/Time of Note DATE: 02/27/19 TIME: 07:37 Assessment/Plan VTE Prophylaxis Risk score (from Ns)>0 risk: 8 SCD applied (from [facility] [place]): No SCD contraindicated: patient refusal Pharmacological prophylaxis: LMWH Pharm contraindication: patient refusal Lines/Catheters [facility] Type ([facility] PICC Line Central line still needed: Yes Urinary Cath still in place: Yes Reason Cath still needed: other (indicate) Assessment/Plan Hospital Course SUBJECTIVE: Patient refusing most of his medications. OBJECTIVE: Physical Exam General: Adequately build 63 year-old male lying in bed in no apparent distress. HEENT: Normocephalic, atraumatic. Eyes: Anicteric sclerae, conjunctivae clear. ENT: Nasal septum midline, oral mucosa moist. Neck supple. Respiratory: Bilaterally diminished. Breath sounds. No use of accessory muscles of respiration. No adventitious breath sounds. Cardiovascular: S1, S2 heard. No murmurs or gallops. Abdomen: Soft, nontender, and nondistended. Bowel sounds positive in all 4 quadrants. Genitourinary: Deferred. Extremities: Bilateral lower extremity contracted with bilateral foot wounds Neurologic: The patient is awake, alert, and oriented. Labs & Vitals per chart ASSESSMENT & PLAN 63-year-old male who is wheelchair-bound, past medical history of hypertension, sacral decubitus ulcers, diabetes, osteomyelitis, smoking history, homelessness, anemia, and neurogenic bladder, who presented with worsening diabetic foot ulcers on his bilateral feet. 1. Osteomyelitis of the left fifth metatarsal (01/20/2019). Incompletely treated with IV antibiotics as per recommendations because of noncompliance. S/P Daptomycin/gentamicin until 02/23/2019, then changed to IV Vanco plus Rocephin 03/22/2019 to complete the course of antibiotics. ID following. 2. Chronic bilateral lower extremity ulcers. Continue local wound care. Status post podiatry evaluation. 3. Multiple bilateral gluteal wounds. Continue antimicrobials as per ID. Status post debridement on 02/07/2019. Cultures showing polymicrobial's including MRSA and VRE. 4. Hypertension. Continue antihypertensives. 5. Diabetes mellitus. Hemoglobin A1c 6.5. Continue metformin. Refusing insulin. 6. Peripheral neuropathy. Continue gabapentin. 7. Normocytic anemia. Probably anemia of chronic disease. 8. Nicotine use. Cessation advised. 9. Debility with contractures. Wheelchair-bound. Physical therapy. 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 11. Chronic neurogenic bladder. Chanel cath in place. 12. Noncompliance with medications and medical management. Counseling. 13. Fluids, electrolytes, and nutrition. Carbohydrate controlled diet. 14. DVT prophylaxis. Subcutaneous Lovenox (patient refusing). 15. Plan. Continue antimicrobials as per ID. Continue local wound care. Await clinical improvement/placement to a nursing facility. The patient was seen in collaboration with Dr. Banks. Result Diagram: 02/27/19 0617 Results 24hrs Laboratory Tests Test 02/26/19 08:38 02/26/19 09:57 02/26/19 12:41 02/26/19 17:16 Bedside Glucose 114 221 H 138 Sodium Level 138 Potassium Level 4.4 Chloride Level 107 Carbon Dioxide Level 22 Anion Gap 9 Blood Urea Nitrogen 30 H Creatinine 1.19 Est Glomerular > 60 Filtrat Rate mL/min Glucose Level 131 # Calcium Level 8.7 Gentamicin Level 0.7 L Trough Test 02/26/19 21:07 02/27/19 06:17 Bedside Glucose 120 Sodium Level 141 Potassium Level 4.5 Chloride Level 106 Carbon Dioxide Level 25 Anion Gap 10 Blood Urea Nitrogen 27 H Creatinine 1.11 Est Glomerular > 60 Filtrat Rate mL/min Glucose Level 86 # Calcium Level 9.0 Exam/Review of Systems Exam Vitals Vital Signs Date Temp Pulse Resp B/P (MAP) Pulse Ox O2 O2 Flow FiO2 Time Delivery Rate 02/26/19 98.2 84 19 181/84 96 20:00 (116) 02/26/19 Room Air 13:44 Intake and Output 02/26/19 02/26/19 02/27/19 1515:00 23:00 07:00 IntakeIntake Total 709 ml 400 ml OutputOutput Total 1000 ml BalanceBalance -291 ml 400 ml Results Results 24hrs Laboratory Tests Test 02/26/19 08:38 02/26/19 09:57 02/26/19 12:41 02/26/19 17:16 Bedside Glucose 114 221 H 138 Sodium Level 138 Potassium Level 4.4 Chloride Level 107 Carbon Dioxide Level 22 Anion Gap 9 Blood Urea Nitrogen 30 H Creatinine 1.19 Est Glomerular > 60 Filtrat Rate mL/min Glucose Level 131 # Calcium Level 8.7 Gentamicin Level 0.7 L Trough Test 02/26/19 21:07 02/27/19 06:17 Bedside Glucose 120 Sodium Level 141 Potassium Level 4.5 Chloride Level 106 Carbon Dioxide Level 25 Anion Gap 10 Blood Urea Nitrogen 27 H Creatinine 1.11 Est Glomerular > 60 Filtrat Rate mL/min Glucose Level 86 # Calcium Level 9.0 Medications Medication Current Medications IV Flush (NS 3 ml) 3 ml PER PROTOCOL IV Last administered on 02/14/19 08:13; Admin Dose 3 ML; Start 02/06/19 at 05:30 Ondansetron HCl (Zofran Inj) 4 mg Q6H PRN IV NAUSEA/VOMITING; Start 02/06/19 at 05:30 Acetaminophen (Tylenol Tab) 650 mg Q6H PRN PO .PAIN 1-3 OR TEMP Last administered on 02/06/19at 21:57; Admin Dose 650 MG; Start 02/06/19 at 05:30 Acetaminophen/ Hydrocodone Bitart ([place] (5/325)) 1 tab Q6H PRN PO .MOD PAIN 4- 6 Last administered on 02/26/19at 23:00; Admin Dose 1 TAB; Start 02/06/19 at 05:30 Morphine Sulfate (morphine) 2 mg Q4H PRN IV .SEVERE PAIN 7-10; Start 02/06/19 at 05:30 Docusate Sodium (Colace) 100 mg Q12H PRN PO .CONSTIPATION; Start 02/06/19 at 05:30 Magnesium Hydroxide (Milk Of Mag) 30 ml DAILY PRN PO .CONSTIPATION Last administered on 02/09/19at 13:58; Admin Dose 30 ML; Start 02/06/19 at 05:30 Lorazepam (Ativan) 0.5 mg Q6H PRN IV ANXIETY; Start 02/06/19 at 05:30 Albuterol/ Ipratropium (Duoneb) 3 ml Q4H RESP THERAPY PRN HHN SHORTNESS OF BREATH; Start 02/06/19 at 05:30 Hydralazine HCl (Apresoline) 10 mg Q6H PRN IV ELEVATED BLOOD PRESSURE Last administered on 02/26/19at 08:56; Admin Dose 10 MG; Start 02/06/19 at 05:30 Clonidine (Catapres) 0.1 mg Q6H PRN PO ELEVATED SYSTOLIC BP Last administered on 02/18/19at 13:40; Admin Dose 0.1 MG; Start 02/06/19 at 05:30 Nitroglycerin (Nitroglycerin (Sl Tab) 0.4 Mg) 1 tab Q5M PRN SL ANGINA; Start 02/06/19 at 05:30 Ascorbic Acid (Vitamin C) 500 mg DAILY PO Last administered on 02/10/19at 08:25; Admin Dose 500 MG; Start 02/06/19 at 09:00 Gabapentin (Neurontin) 100 mg TID PO Last administered on 02/26/19at 21:25; Admin Dose 100 MG; Start 02/06/19 at 09:00 Multivitamins Therapeutic (Theragran) 1 tab DAILY PO Last administered on 02/10/19at 08:25; Admin Dose 1 TAB; Start 02/06/19 at 09:00 Miscellaneous Information Patients own medicat... BID@10,16 XX ; Start 02/06/19 at 16:00 Diagnostic Test (Pha) (Accu-Chek) 1 ea 02 XX ; Start 02/07/19 at 02:00 Insulin Aspart (Novolog Insulin Pen) NOVOLOG *MILD* ALGORITHM WITH MEALS BEDTIME SC Last administered on 02/26/19at 12:44; Admin Dose 3 UNIT; Start 02/06/19 at 18:00 Miscellaneous Information 1 ea NOTE XX ; Start 02/06/19 at 14:30 Glucose (Glutose) 15 gm Q15M PRN PO DECREASED GLUCOSE; Start 02/06/19 at 14:30 Glucose (Glutose) 22.5 gm Q15M PRN PO DECREASED GLUCOSE; Start 02/06/19 at 14:30 Dextrose (D50w Syringe) 25 ml Q15M PRN IV DECREASED GLUCOSE; Start 02/06/19 at 14:30 Dextrose (D50w Syringe) 50 ml Q15M PRN IV DECREASED GLUCOSE; Start 02/06/19 at 14:30 Glucagon (Glucagen) 1 mg Q15M PRN IM DECREASED GLUCOSE; Start 02/06/19 at 14:30 Glucose (Glutose) 15 gm Q15M PRN BUCCAL DECREASED GLUCOSE; Start 02/06/19 at 14:30 Collagenase (Santyl) 1 applic DAILY TOP Last administered on 02/23/19at 08:51; Admin Dose 1 APPLIC; Start 02/06/19 at 18:30 Collagenase (Santyl) 1 applic PRN PRN TOP WHEN SOILED; Start 02/06/19 at 18:30 Lisinopril (Zestril) 40 mg DAILY PO Last administered on 02/26/19 08:50; Admin Dose 40 MG; Start 02/08/19 at 09:00 Metformin HCl (Glucophage) 1,000 mg WITH BREAKFAST DINNE PO Last administered on 02/26/19 17:17; Admin Dose 1,000 MG; Start 02/07/19 at 18:00 Clotrimazole (Lotrimin Cr) 1 applic BID TOP Last administered on 02/26/19 08:42; Admin Dose 1 APPLIC; Start 02/07/19 at 11:30 Sodium Hypochlorite (Dakins Diluted ()) 1 applic DAILY TP Last administered on 02/26/19 08:42; Admin Dose 1 APPLIC; Start 02/09/19 at 09:00 Gentamicin Sulfate (Gentamicin Iv Per Pharmacy) GENTAMICIN PER PHARMACY NOTE XX ; Start 02/10/19 at 14:00 Nifedipine (Procardia Xl) 30 mg BID PO Last administered on 02/26/19 08:51; Admin Dose 30 MG; Start 02/11/19 at 15:00 Polyethylene Glycol (Miralax) 17 gm DAILY PO Last administered on 02/12/19 12:40; Admin Dose 17 GM; Start 02/12/19 at 12:30 Famotidine (Pepcid) 20 mg DAILY PO Last administered on 02/23/19 08:48; Admin Dose 20 MG; Start 02/14/19 at 09:00 Metoprolol Tartrate (Lopressor) 100 mg BID PO Last administered on 02/23/19 08:48; Admin Dose 100 MG; Start 02/13/19 at 21:00 Aspirin (Halfprin) 81 mg DAILY PO ; Start 02/14/19 at 09:00 Lactobacillus Acidophilus/ Rhamnosus (Culturelle) 1 cap BID PO Last administered on 02/26/19 21:19; Admin Dose 1 CAP; Start 02/13/19 at 21:00 Enoxaparin Sodium (Lovenox) 40 mg DAILY SC Last administered on 02/14/19 08:19; Admin Dose 40 MG; Start 02/14/19 at 09:00 Nicotine (Nicoderm 14 Mg/ 24hr) 1 patch DAILY PRN TRANSDERM CONTROL WITHDRAWAL SYMPTOMS; Start 02/13/19 at 15:00 Linezolid (Zyvox) 600 mg BID PO Last administered on 02/26/19at 21:19; Admin Dose 600 MG; Start 02/18/19 at 12:00 IV Flush (NS 10 ml) 10 ml PRN PRN IV IV PROTOCOL; Start 02/20/19 at 12:30 Gentamicin Sulfate 360 mg/ Sodium Chloride 109 ml @ 109 mls/hr Q48H IVPB Last administered on 02/26/19at 11:43; Admin Dose 109 MLS/HR; Start 02/24/19 at 10:00 EV HARO NP Feb 27, 2019 07:37
[2019-02-27 07:58] VITALS: BP 168/81; PULSE 78; RESP 18
[2019-02-27] MEDS: INSULIN ASPART [NOVOLOG] 3 ML PEN SC SCH ×4 (08:00→21:00)
[2019-02-27] MEDS: FAMOTIDINE 20 MG TAB PO SCH (08:47)
[2019-02-27] MEDS: GABAPENTIN 100 MG CAP PO SCH ×3 (08:48→21:11)
[2019-02-27] MEDS: ZYVOX 600 MG TAB PO SCH (08:48)
[2019-02-27] MEDS: LACTOBACILLUS RHAMNOSUS CAP PO SCH ×2 (08:48→21:00)
[2019-02-27] MEDS: COLLAGENASE 5 GM (UD JAR) TOP SCH (08:48)
[2019-02-27] MEDS: DAKINS 0.0125%(1/40) 473 ML SOLUTION TP SCH (08:49)
[2019-02-27] MEDS: ENOXAPARIN 40 MG/0.4 ML SYG SC SCH (08:49)
[2019-02-27] MEDS: ASCORBIC ACID 500 MG TAB PO SCH (08:50)
[2019-02-27] MEDS: NIFEdipine (XL) 30 MG TAB PO SCH ×2 (08:50→21:00)
[2019-02-27] MEDS: LISINOPRIL 20 MG TAB PO SCH (08:50)
[2019-02-27] MEDS: MULTIVITAMINS THERAPEUTIC TAB PO SCH (08:50)
[2019-02-27] MEDS: POLYETHYLENE GLYCOL 17 GM PACKET PO SCH (08:50)
[2019-02-27] MEDS: CLOTRIMAZOLE 1% 30 GM CR TOP SCH ×2 (08:50→21:00)
[2019-02-27] MEDS: METOPROLOL 100 MG TAB PO SCH ×2 (08:51→21:00)
[2019-02-27] MEDS: ASPIRIN (EC) 81 MG TAB PO SCH (08:51)
[2019-02-27] MEDS: metFORMIN 500 MG TAB PO SCH ×2 (08:54→17:17)
[2019-02-27] MEDS ORDERED: VANCOMYCIN IV PER PHARMACY XX SCH (11:00)
[2019-02-27] MEDS: CEFTRIAXONE 1 GM/50 ML (PMX) 50 ML IVPB SCH (11:39)
--- NOTE | 2019-02-27 11:44 | PN ---
Date/Time of Note Date/Time of Note DATE: 02/27/19 TIME: 11:43 Assessment/Plan Lines/Catheters IV Catheter Type (from Nrs): PICC Line Chanel in Place (from Nrs): Yes Assessment/Plan Chief Complaint/Hosp Course 1. Multiple wounds s/p debridement of bilat buttock 02/07/19 healing well -further debridement prn -Will repeat wound cultures> pending -Continue local care -frequent turning and off-loading -low air loss mattress -vitamin c -optimize nutrition -bilateral LE wounds: per podiatry 2. Osteomyelitis BLE s/p iv abx per ID -placement pending 3. Hypertension -nutrition and medication management 4. Diabetes: hga1c: 6.5 -nutrition and medication management 5. Diabetic neuropathy -safety precs (ensure no lines/tubes, etc on skin) -diabetes optimization 6. Hypochromic anemia -monitor and tx as needed 7. Depression -psych optimization 8. 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 Patient seen and examined in collaboration with Dr. Kj Moran Subjective 24 Hr Interval Summary Feels well. No fevers, chills, sob, congested cough, cp, palpitations, koch, dizziness, nausea, vomiting, diarrhea, dysuria. Exam/Review of Systems Vital Signs Vitals Vital Signs Date Temp Pulse Resp B/P (MAP) Pulse Ox O2 O2 Flow FiO2 Time Delivery Rate 02/27/19 97.6 78 18 168/81 96 Room Air 07:58 (110) Intake and Output 02/26/19 02/26/19 02/27/19 1515:00 23:00 07:00 IntakeIntake Total 709 ml 400 ml OutputOutput Total 1000 ml BalanceBalance -291 ml 400 ml Exam Free Text/Dictation Constitutional: alert, oriented, well developed Psych: nl mood/affect, labile Head: normocephalic, atraumatic Eyes: nl conjunctiva, EOMI, nl lids, nl sclera ENMT: nl external ears & nose, nl lips & teeth, mucosa pink and moist Neck: supple, non-tender; No jvd Respiratory: normal air movement; No congested cough Cardiovascular: regular rate and rhythm, nl pulses; No edema Gastrointestinal: soft, non-tender Genitourinary - Male: nl penis, nl scrotum Musculoskeletal: nl extremities to inspection, other (contracted BLE) Extremities: normal pulses; No pitting pedal edema Neurological: nl mental status, nl speech, nl strength Skin: other (multiple wounds: bilat buttock: clean, no periwound erythema, no drainage); BLE: wounds: dry No rash or lesions Lymph: No nl lymph nodes Results Result Diagram: 02/27/19 0617 CALLY NOEL NP Feb 27, 2019 11:44
[2019-02-27] MEDS ORDERED: VANCOMYCIN HCL 1.5 GM in SOD CHLORIDE 0.9% 250 ML IVPB ONE (12:00)
[2019-02-27 14:25] VITALS: BP 199/96; PULSE 85; RESP 18
--- NOTE | 2019-02-27 14:45 | CONS ---
Assessment/Plan Assessment/Plan Hospital Course (Demo Recall) No acute events. Patient looks comfortable, no fevers overnight Left and right buttock wounds grew MRSA, Pseudomonas, Enterococcus, Corynebacterium group JK Blood culture on admission grew staph species 1 out of 2 sets Antimicrobials: Vanco Rocephin ALLERGIES: HE IS NOT ALLERGIC TO ANY ANTIBIOTICS. PHYSICAL EXAMINATION: GENERAL: Well-developed elderly -[place] man who is in no distress. HEENT: Head is atraumatic, normocephalic. Sclerae are anicteric. Buccal mucosa is dry. NECK: Supple. CHEST: Rise symmetrical. Breath sounds diminished to bases. HEART: S1, S2. ABDOMEN: Soft. Bowel tones are present. EXTREMITIES: With bilateral lower extremities dressing intact. Assessment: 1. Bilateral lower extremities diabetic ulcerations 2. Left foot osteomyelitis 3. Diabetes with diabetic neuropathy 4. Bilateral buttocks ulcerations, status post debridement 5. Coag negative staph bacteremia consistent with contaminant 6. Noncompliance Plan: Remains stable, add Fluconazole, continue antibiotics till March 22 to complete course for OM Consultation Date/Type/Reason Admit Date/Time Feb 06, 2019 at 03:18 Initial Consult Date 02/07/19 Type of Consult id Requesting Provider: MASOUD SOLANO DPM Date/Time of Note DATE: 02/27/19 TIME: 14:44 Exam/Review of Systems Exam Vitals Vital Signs Date Temp Pulse Resp B/P (MAP) Pulse Ox O2 O2 Flow FiO2 Time Delivery Rate 02/27/19 97.9 85 18 199/96 98 Room Air 14:25 (130) Intake and Output 02/26/19 02/26/19 02/27/19 1515:00 23:00 07:00 IntakeIntake Total 709 ml 400 ml OutputOutput Total 1000 ml BalanceBalance -291 ml 400 ml Results Result Diagram: 02/27/19 0617 Results 24hrs Laboratory Tests Test 02/26/19 17:16 02/26/19 21:07 02/27/19 06:17 02/27/19 08:43 Bedside Glucose 138 120 82 Sodium Level 141 Potassium Level 4.5 Chloride Level 106 Carbon Dioxide Level 25 Anion Gap 10 Blood Urea Nitrogen 27 H Creatinine 1.11 Est Glomerular > 60 Filtrat Rate mL/min Glucose Level 86 # Calcium Level 9.0 Test 02/27/19 12:41 Bedside Glucose 121 Medications Medication Current Medications IV Flush (NS 3 ml) 3 ml PER PROTOCOL IV Last administered on 02/14/19 08:13; Admin Dose 3 ML; Start 02/06/19 at 05:30 Ondansetron HCl (Zofran Inj) 4 mg Q6H PRN IV NAUSEA/VOMITING; Start 02/06/19 at 05:30 Acetaminophen (Tylenol Tab) 650 mg Q6H PRN PO .PAIN 1-3 OR TEMP Last adminis tered on 02/06/19at 21:57; Admin Dose 650 MG; Start 02/06/19 at 05:30 Acetaminophen/ Hydrocodone Bitart ([place] (5/325)) 1 tab Q6H PRN PO .MOD PAIN 4- 6 Last administered on 02/26/19 23:00; Admin Dose 1 TAB; Start 02/06/19 at 05:30 Morphine Sulfate (morphine) 2 mg Q4H PRN IV .SEVERE PAIN 7-10; Start 02/06/19 at 05:30 Docusate Sodium (Colace) 100 mg Q12H PRN PO .CONSTIPATION; Start 02/06/19 at 05:30 Magnesium Hydroxide (Milk Of Mag) 30 ml DAILY PRN PO .CONSTIPATION Last administered on 02/09/19 13:58; Admin Dose 30 ML; Start 02/06/19 at 05:30 Lorazepam (Ativan) 0.5 mg Q6H PRN IV ANXIETY; Start 02/06/19 at 05:30 Albuterol/ Ipratropium (Duoneb) 3 ml Q4H RESP THERAPY PRN HHN SHORTNESS OF BREATH; Start 02/06/19 at 05:30 Hydralazine HCl (Apresoline) 10 mg Q6H PRN IV ELEVATED BLOOD PRESSURE Last adm inistered on 02/26/19 08:56; Admin Dose 10 MG; Start 02/06/19 at 05:30 Clonidine (Catapres) 0.1 mg Q6H PRN PO ELEVATED SYSTOLIC BP Last administered on 02/18/19 13:40; Admin Dose 0.1 MG; Start 02/06/19 at 05:30 Nitroglycerin (Nitroglycerin (Sl Tab) 0.4 Mg) 1 tab Q5M PRN SL ANGINA; Start 02/06/19 at 05:30 Ascorbic Acid (Vitamin C) 500 mg DAILY PO Last administered on 02/10/19 08:25; Admin Dose 500 MG; Start 02/06/19 at 09:00 Gabapentin (Neurontin) 100 mg TID PO Last administered on 02/27/19at 12:42; Admin Dose 100 MG; Start 02/06/19 at 09:00 Multivitamins Therapeutic (Theragran) 1 tab DAILY PO Last administered on 02/10/19at 08:25; Admin Dose 1 TAB; Start 02/06/19 at 09:00 Miscellaneous Information Patients own medicat... BID@10,16 XX ; Start 02/06/19 at 16:00 Diagnostic Test (Pha) (Accu-Chek) 1 ea 02 XX ; Start 02/07/19 at 02:00 Insulin Aspart (Novolog Insulin Pen) NOVOLOG *MILD* ALGORITHM WITH MEALS BEDTIME SC Last administered on 02/26/19at 12:44; Admin Dose 3 UNIT; Start 02/06/19 at 18:00 Miscellaneous Information 1 ea NOTE XX ; Start 02/06/19 at 14:30 Glucose (Glutose) 15 gm Q15M PRN PO DECREASED GLUCOSE; Start 02/06/19 at 14:30 Glucose (Glutose) 22.5 gm Q15M PRN PO DECREASED GLUCOSE; Start 02/06/19 at 14:30 Dextrose (D50w Syringe) 25 ml Q15M PRN IV DECREASED GLUCOSE; Start 02/06/19 at 14:30 Dextrose (D50w Syringe) 50 ml Q15M PRN IV DECREASED GLUCOSE; Start 02/06/19 at 14:30 Glucagon (Glucagen) 1 mg Q15M PRN IM DECREASED GLUCOSE; Start 02/06/19 at 14:30 Glucose (Glutose) 15 gm Q15M PRN BUCCAL DECREASED GLUCOSE; Start 02/06/19 at 14:30 Collagenase (Santyl) 1 applic DAILY TOP Last administered on 02/27/19at 08:48; Admin Dose 1 APPLIC; Start 02/06/19 at 18:30 Collagenase (Santyl) 1 applic PRN PRN TOP WHEN SOILED; Start 02/06/19 at 18:30 Lisinopril (Zestril) 40 mg DAILY PO Last administered on 02/26/19at 08:50; Admin Dose 40 MG; Start 02/08/19 at 09:00 Metformin HCl (Glucophage) 1,000 mg WITH BREAKFAST DINNE PO Last administered on 02/27/19at 08:54; Admin Dose 1,000 MG; Start 02/07/19 at 18:00 Clotrimazole (Lotrimin Cr) 1 applic BID TOP Last administered on 02/26/19 08:42; Admin Dose 1 APPLIC; Start 02/07/19 at 11:30 Sodium Hypochlorite (Dakins Diluted (40)) 1 applic DAILY TP Last administered on 02/27/19 08:49; Admin Dose 1 APPLIC; Start 02/09/19 at 09:00 Nifedipine (Procardia Xl) 30 mg BID PO Last administered on 02/26/19 08:51; Admin Dose 30 MG; Start 02/11/19 at 15:00 Polyethylene Glycol (Miralax) 17 gm DAILY PO Last administered on 02/12/19 12:40; Admin Dose 17 GM; Start 02/12/19 at 12:30 Famotidine (Pepcid) 20 mg DAILY PO Last administered on 02/27/19at 08:47; Admin Dose 20 MG; Start 02/14/19 at 09:00 Metoprolol Tartrate (Lopressor) 100 mg BID PO Last administered on 02/23/19 08:48; Admin Dose 100 MG; Start 02/13/19 at 21:00 Aspirin (Halfprin) 81 mg DAILY PO ; Start 02/14/19 at 09:00 Lactobacillus Acidophilus/ Rhamnosus (Culturelle) 1 cap BID PO Last administered on 02/26/19at 21:19; Admin Dose 1 CAP; Start 02/13/19 at 21:00 Enoxaparin Sodium (Lovenox) 40 mg DAILY SC Last administered on 02/14/19at 08:19; Admin Dose 40 MG; Start 02/14/19 at 09:00 Nicotine (Nicoderm 14 Mg/ 24hr) 1 patch DAILY PRN TRANSDERM CONTROL WITHDRAWAL SYMPTOMS; Start 02/13/19 at 15:00 IV Flush (NS 10 ml) 10 ml PRN PRN IV IV PROTOCOL; Start 02/20/19 at 12:30 Vancomycin HCl (Vanco Iv Per Pharmacy) VANCOMYCIN PER PHARMACY PER PROTOCOL XX ; Start 02/27/19 at 11:00 Ceftriaxone Sodium 50 ml @ 100 mls/hr Q24H IVPB Last administered on 02/27/19at 11:39; Admin Dose 100 MLS/HR; Start 02/27/19 at 11:00 Vancomycin HCl 1.5 gm/Sodium Chloride 250 ml @ 83.333 mls/ hr ONCE ONCE IVPB Last administered on 02/27/19at 12:42; Admin Dose 83.333 MLS/HR; Start 02/27/19 at 12:00; Stop 02/27/19 at 14:59 Vancomycin HCl 100 ml @ 100 mls/hr Q12H IVPB ; Start 02/28/19 at 01:00 CHANTALE RAMIREZ NP Feb 27, 2019 14:44
[2019-02-27] MEDS: hydrALAzine 20 MG INJ IV PRN ×2 (14:50→21:14)
[2019-02-27 16:45] VITALS: BP 168/81; PULSE 81
[2019-02-27] MEDS: FLUCONAZOLE 100 MG TAB PO SCH (17:18)
[2019-02-27 19:45] VITALS: BP 191/102; PULSE 91; RESP 19
[2019-02-27] MEDS: VANCOMYCIN 500 MG (PMX) 100 ML IVPB SCH (23:56)
[2019-02-28] MEDS ORDERED: VANCOMYCIN 500 MG (PMX) 100 ML IVPB SCH (01:00)
[2019-02-28] MEDS: ACCU-CHEK XX SCH (02:00)
[2019-02-28 07:18] VITALS: BP 171/88; PULSE 84; RESP 18
[2019-02-28] MEDS: INSULIN ASPART [NOVOLOG] 3 ML PEN SC SCH ×4 (08:00→20:40)
[2019-02-28] MEDS: metFORMIN 500 MG TAB PO SCH ×2 (08:16→17:19)
[2019-02-28] MEDS: LISINOPRIL 20 MG TAB PO SCH (08:16)
[2019-02-28] MEDS: GABAPENTIN 100 MG CAP PO SCH ×3 (08:16→20:21)
[2019-02-28] MEDS: LACTOBACILLUS RHAMNOSUS CAP PO SCH ×2 (08:16→20:22)
[2019-02-28] MEDS: FLUCONAZOLE 100 MG TAB PO SCH (08:16)
[2019-02-28] MEDS: METOPROLOL 100 MG TAB PO SCH ×2 (08:17→20:39)
[2019-02-28] MEDS: NIFEdipine (XL) 30 MG TAB PO SCH ×2 (08:17→20:39)
[2019-02-28] MEDS: ASPIRIN (EC) 81 MG TAB PO SCH (08:18)
[2019-02-28] MEDS: FAMOTIDINE 20 MG TAB PO SCH (08:18)
[2019-02-28] MEDS: ASCORBIC ACID 500 MG TAB PO SCH (08:18)
[2019-02-28] MEDS: MULTIVITAMINS THERAPEUTIC TAB PO SCH (08:18)
[2019-02-28] MEDS: POLYETHYLENE GLYCOL 17 GM PACKET PO SCH (08:19)
[2019-02-28] MEDS: ENOXAPARIN 40 MG/0.4 ML SYG SC SCH (08:20)
[2019-02-28] MEDS: HYDROCODONE/APAP (5/325) TAB PO PRN ×2 (08:29→20:28)
[2019-02-28] MEDS: CLOTRIMAZOLE 1% 30 GM CR TOP SCH ×2 (09:00→20:40)
[2019-02-28] MEDS: DAKINS 0.0125%(1/40) 473 ML SOLUTION TP SCH (09:00)
[2019-02-28] MEDS: COLLAGENASE 5 GM (UD JAR) TOP SCH (09:00)
--- NOTE | 2019-02-28 10:19 | PN ---
Date/Time of Note Date/Time of Note DATE: 02/28/19 TIME: 10:18 Assessment/Plan Lines/Catheters IV Catheter Type (from Nrs): PICC Line Chanel in Place (from Nrs): Yes Assessment/Plan Chief Complaint/Hosp Course 1. Multiple wounds s/p debridement of bilat buttock 02/07/19 bilateral buttock: Continuing to heal well -further debridement prn -repeat wound cultures> pending -Continue local care -frequent turning and off-loading -low air loss mattress -vitamin c -optimize nutrition -bilateral LE wounds: per podiatry 2. Osteomyelitis BLE s/p iv abx per ID -Antibiotics per ID 3. Hypertension -nutrition and medication management 4. Diabetes: hga1c: 6.5 -nutrition and medication management 5. Diabetic neuropathy -safety precs (ensure no lines/tubes, etc on skin) -diabetes optimization 6. Hypochromic anemia -monitor and tx as needed 7. Depression -psych optimization 8. Hypocalcemia: likely multifactorial -nutrition optimization -treat infections 9. 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 Patient seen and examined in collaboration with Dr. Kj Moran Subjective 24 Hr Interval Summary Placement pending. Continues to refuse most medications. Hypertension. No fevers, chills, sob, congested cough, cp, palpitations, koch, dizziness, nausea, vomiting, diarrhea, dysuria. Exam/Review of Systems Vital Signs Vitals Vital Signs Date Temp Pulse Resp B/P (MAP) Pulse Ox O2 O2 Flow FiO2 Time Delivery Rate 02/28/19 98.3 84 18 171/88 97 Room Air 07:18 (115) Intake and Output 02/27/19 02/27/19 02/28/19 1515:00 23:00 07:00 IntakeIntake Total 650 ml 550 ml 100 ml OutputOutput Total 1500 ml 500 ml BalanceBalance -850 ml 50 ml 100 ml Exam Free Text/Dictation Constitutional: alert, oriented, well developed Psych: nl mood/affect, labile Head: normocephalic, atraumatic Eyes: nl conjunctiva, EOMI, nl lids, nl sclera ENMT: nl external ears & nose, nl lips & teeth, mucosa pink and moist Neck: supple, non-tender; No jvd Respiratory: normal air movement; No congested cough Cardiovascular: regular rate and rhythm, nl pulses; No edema Gastrointestinal: soft, non-tender Genitourinary - Male: nl penis, nl scrotum Musculoskeletal: nl extremities to inspection, other (contracted BLE) Extremities: normal pulses; No pitting pedal edema Neurological: nl mental status, nl speech, nl strength Skin: other (multiple wounds: bilat buttock: clean, no periwound erythema, no drainage); BLE: wounds: dry No rash or lesions Lymph: No nl lymph nodes Results Result Diagram: 02/27/19 0617 CALLY NOEL NP Feb 28, 2019 10:19
[2019-02-28] MEDS: CEFTRIAXONE 1 GM/50 ML (PMX) 50 ML IVPB SCH (10:36)
[2019-02-28] MEDS: VANCOMYCIN 500 MG (PMX) 100 ML IVPB SCH (11:51)
[2019-02-28 13:47] VITALS: BP 146/71; PULSE 76; RESP 18
--- NOTE | 2019-02-28 14:35 | CONS ---
Assessment/Plan Assessment/Plan Hospital Course (Demo Recall) No acute events. Patient looks comfortable, no fevers overnight Left and right buttock wounds grew MRSA, Pseudomonas, Enterococcus, Corynebacterium group JK Blood culture on admission grew staph species 1 out of 2 sets Antimicrobials: Vanco Rocephin fluconazole ALLERGIES: HE IS NOT ALLERGIC TO ANY ANTIBIOTICS. PHYSICAL EXAMINATION: GENERAL: Well-developed elderly -[place] man who is in no distress. HEENT: Head is atraumatic, normocephalic. Sclerae are anicteric. Buccal mucosa is dry. NECK: Supple. CHEST: Rise symmetrical. Breath sounds diminished to bases. HEART: S1, S2. ABDOMEN: Soft. Bowel tones are present. EXTREMITIES: With bilateral lower extremities dressing intact. Assessment: 1. Bilateral lower extremities diabetic ulcerations 2. Left foot osteomyelitis 3. Diabetes with diabetic neuropathy 4. Bilateral buttocks ulcerations, status post debridement 5. Coag negative staph bacteremia consistent with contaminant 6. Noncompliance Plan: Remains stable, continue antibiotics till March 22 to complete course for OM Consultation Date/Type/Reason Admit Date/Time Feb 06, 2019 at 03:18 Initial Consult Date 02/07/19 Type of Consult id Requesting Provider: MASOUD SOLANO DPM Date/Time of Note DATE: 02/28/19 TIME: 14:35 Exam/Review of Systems Exam Vitals Vital Signs Date Temp Pulse Resp B/P (MAP) Pulse Ox O2 O2 Flow FiO2 Time Delivery Rate 02/28/19 97.9 76 18 146/71 98 Room Air 13:47 (96) Intake and Output 02/27/19 02/27/19 02/28/19 1515:00 23:00 07:00 IntakeIntake Total 650 ml 550 ml 100 ml OutputOutput Total 1500 ml 500 ml BalanceBalance -850 ml 50 ml 100 ml Results Result Diagram: 02/27/19 0617 Results 24hrs Laboratory Tests Test 02/27/19 17:15 02/27/19 21:13 Bedside Glucose 91 108 Medications Medication Current Medications IV Flush (NS 3 ml) 3 ml PER PROTOCOL IV Last administered on 02/14/19at 08:13; Admin Dose 3 ML; Start 02/06/19 at 05:30 Ondansetron HCl (Zofran Inj) 4 mg Q6H PRN IV NAUSEA/VOMITING; Start 02/06/19 at 05:30 Acetaminophen (Tylenol Tab) 650 mg Q6H PRN PO .PAIN 1-3 OR TEMP Last administered on 02/06/19 21:57; Admin Dose 650 MG; Start 02/06/19 at 05:30 Acetaminophen/ Hydrocodone Bitart ([place] (5/325)) 1 tab Q6H PRN PO .MOD PAIN 4- 6 Last administered on 02/28/19 08:29; Admin Dose 1 TAB; Start 02/06/19 at 05:30 Morphine Sulfate (morphine) 2 mg Q4H PRN IV .SEVERE PAIN 7-10; Start 02/06/19 at 05:30 Docusate Sodium (Colace) 100 mg Q12H PRN PO .CONSTIPATION; Start 02/06/19 at 05:30 Magnesium Hydroxide (Milk Of Mag) 30 ml DAILY PRN PO .CONSTIPATION Last administered on 02/09/19 13:58; Admin Dose 30 ML; Start 02/06/19 at 05:30 Lorazepam (Ativan) 0.5 mg Q6H PRN IV ANXIETY; Start 02/06/19 at 05:30 Albuterol/ Ipratropium (Duoneb) 3 ml Q4H RESP THERAPY PRN HHN SHORTNESS OF BREATH; Start 02/06/19 at 05:30 Hydralazine HCl (Apresoline) 10 mg Q6H PRN IV ELEVATED BLOOD PRESSURE Last administered on 02/27/19 21:14; Admin Dose 10 MG; Start 02/06/19 at 05:30 Clonidine (Catapres) 0.1 mg Q6H PRN PO ELEVATED SYSTOLIC BP Last administered on 02/18/19 13:40; Admin Dose 0.1 MG; Start 02/06/19 at 05:30 Nitroglycerin (Nitroglycerin (Sl Tab) 0.4 Mg) 1 tab Q5M PRN SL ANGINA; Start 02/06/19 at 05:30 Ascorbic Acid (Vitamin C) 500 mg DAILY PO Last administered on 02/10/19 08:25; Admin Dose 500 MG; Start 02/06/19 at 09:00 Gabapentin (Neurontin) 100 mg TID PO Last administered on 02/28/19 08:16; Admin Dose 100 MG; Start 02/06/19 at 09:00 Multivitamins Therapeutic (Theragran) 1 tab DAILY PO Last administered on 02/10/19at 08:25; Admin Dose 1 TAB; Start 02/06/19 at 09:00 Miscellaneous Information Patients own medicat... BID@10,16 XX ; Start 02/06/19 at 16:00 Diagnostic Test (Pha) (Accu-Chek) 1 ea 02 XX ; Start 02/07/19 at 02:00 Insulin Aspart (Novolog Insulin Pen) NOVOLOG *MILD* ALGORITHM WITH MEALS BEDTIME SC Last administered on 02/26/19at 12:44; Admin Dose 3 UNIT; Start 02/06/19 at 18:00 Miscellaneous Information 1 ea NOTE XX ; Start 02/06/19 at 14:30 Glucose (Glutose) 15 gm Q15M PRN PO DECREASED GLUCOSE; Start 02/06/19 at 14:30 Glucose (Glutose) 22.5 gm Q15M PRN PO DECREASED GLUCOSE; Start 02/06/19 at 14:30 Dextrose (D50w Syringe) 25 ml Q15M PRN IV DECREASED GLUCOSE; Start 02/06/19 at 14:30 Dextrose (D50w Syringe) 50 ml Q15M PRN IV DECREASED GLUCOSE; Start 02/06/19 at 14:30 Glucagon (Glucagen) 1 mg Q15M PRN IM DECREASED GLUCOSE; Start 02/06/19 at 14:30 Glucose (Glutose) 15 gm Q15M PRN BUCCAL DECREASED GLUCOSE; Start 02/06/19 at 14:30 Collagenase (Santyl) 1 applic DAILY TOP Last administered on 02/27/19at 08:48; Admin Dose 1 APPLIC; Start 02/06/19 at 18:30 Collagenase (Santyl) 1 applic PRN PRN TOP WHEN SOILED; Start 02/06/19 at 18:30 Lisinopril (Zestril) 40 mg DAILY PO Last administered on 02/28/19at 08:16; Admin Dose 40 MG; Start 02/08/19 at 09:00 Metformin HCl (Glucophage) 1,000 mg WITH BREAKFAST DINNE PO Last administered on 02/28/19at 08:16; Admin Dose 1,000 MG; Start 02/07/19 at 18:00 Clotrimazole (Lotrimin Cr) 1 applic BID TOP Last administered on 02/26/19at 08:42; Admin Dose 1 APPLIC; Start 02/07/19 at 11:30 Sodium Hypochlorite (Dakins Diluted ()) 1 applic DAILY TP Last administered on 02/27/19at 08:49; Admin Dose 1 APPLIC; Start 02/09/19 at 09:00 Nifedipine (Procardia Xl) 30 mg BID PO Last administered on 02/28/19at 08:17; Admin Dose 30 MG; Start 02/11/19 at 15:00 Polyethylene Glycol (Miralax) 17 gm DAILY PO Last administered on 02/12/19at 12:40; Admin Dose 17 GM; Start 02/12/19 at 12:30 Famotidine (Pepcid) 20 mg DAILY PO Last administered on 02/27/19at 08:47; Admin Dose 20 MG; Start 02/14/19 at 09:00 Metoprolol Tartrate (Lopressor) 100 mg BID PO Last administered on 02/28/19at 08:17; Admin Dose 100 MG; Start 02/13/19 at 21:00 Aspirin (Halfprin) 81 mg DAILY PO ; Start 02/14/19 at 09:00 Lactobacillus Acidophilus/ Rhamnosus (Culturelle) 1 cap BID PO Last administered on 02/28/19at 08:16; Admin Dose 1 CAP; Start 02/13/19 at 21:00 Enoxaparin Sodium (Lovenox) 40 mg DAILY SC Last administered on 02/14/19at 08:19; Admin Dose 40 MG; Start 02/14/19 at 09:00 Nicotine (Nicoderm 14 Mg/ 24hr) 1 patch DAILY PRN TRANSDERM CONTROL WITHDRAWAL SYMPTOMS; Start 02/13/19 at 15:00 IV Flush (NS 10 ml) 10 ml PRN PRN IV IV PROTOCOL; Start 02/20/19 at 12:30 Vancomycin HCl (Vanco Iv Per Pharmacy) VANCOMYCIN PER PHARMACY PER PROTOCOL XX ; Start 02/27/19 at 11:00 Ceftriaxone Sodium 50 ml @ 100 mls/hr Q24H IVPB Last administered on 02/28/19at 10:36; Admin Dose 100 MLS/HR; Start 02/27/19 at 11:00 Fluconazole (Diflucan) 100 mg DAILY PO Last administered on 02/28/19at 08:16; Admin Dose 100 MG; Start 02/27/19 at 15:00 Vancomycin HCl 100 ml @ 100 mls/hr Q12H IVPB Last administered on 02/28/19at 11:51; Admin Dose 100 MLS/HR; Start 02/28/19 at 00:00 Miscellaneous Information (*Rx Drug Level Order Reminder*) 1 2300 ONCE XX ; Start 02/28/19 at 23:00; Stop 02/28/19 at 23:01 CHANTALE RAMIREZ NP Feb 28, 2019 14:35
--- NOTE | 2019-02-28 15:02 | PN ---
Date/Time of Note Date/Time of Note DATE: 02/28/19 TIME: 15:01 Assessment/Plan VTE Prophylaxis Risk score (from Ns)>0 risk: 8 SCD applied (from [facility] [place] SCD contraindicated: patient refusal Pharmacological prophylaxis: LMWH Pharm contraindication: patient refusal Lines/Catheters IV Catheter Type (from [facility]): PICC Line Central line still needed: Yes Urinary Cath still in place: Yes Reason Cath still needed: other (indicate) Assessment/Plan Hospital Course SUBJECTIVE: Patient refusing most of his medications. OBJECTIVE: Physical Exam General: Adequately build 63 year-old male lying in bed in no apparent distress. HEENT: Normocephalic, atraumatic. Eyes: Anicteric sclerae, conjunctivae clear. ENT: Nasal septum midline, oral mucosa moist. Neck supple. Respiratory: Bilaterally diminished. Breath sounds. No use of accessory muscles of respiration. No adventitious breath sounds. Cardiovascular: S1, S2 heard. No murmurs or gallops. Abdomen: Soft, nontender, and nondistended. Bowel sounds positive in all 4 quadrants. Genitourinary: Deferred. Extremities: Bilateral lower extremity contracted with bilateral foot wounds Neurologic: The patient is awake, alert, and oriented. Labs & Vitals per chart ASSESSMENT & PLAN 63-year-old male who is wheelchair-bound, past medical history of hypertension, sacral decubitus ulcers, diabetes, osteomyelitis, smoking history, homelessness, anemia, and neurogenic bladder, who presented with worsening diabetic foot ulcers on his bilateral feet. 1. Osteomyelitis of the left fifth metatarsal (01/20/2019). Incompletely treated with IV antibiotics as per recommendations because of noncompliance. S/P Daptomycin/gentamicin until 02/23/2019, then changed to IV Vanco plus Rocephin 03/22/2019 to complete the course of antibiotics. ID following. 2. Chronic bilateral lower extremity ulcers. Continue local wound care. Status post podiatry evaluation. 3. Multiple bilateral gluteal wounds. Continue antimicrobials as per ID. Status post debridement on 02/07/2019. Cultures showing polymicrobial's including MRSA and VRE. 4. Hypertension. Continue antihypertensives. 5. Diabetes mellitus. Hemoglobin A1c 6.5. Continue metformin. Refusing insulin. 6. Peripheral neuropathy. Continue gabapentin. 7. Normocytic anemia. Probably anemia of chronic disease. 8. Nicotine use. Cessation advised. 9. Debility with contractures. Wheelchair-bound. Physical therapy. 10. 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 workers compensation defense attorney following. 11. Chronic neurogenic bladder. Chanel cath in place. 12. Noncompliance with medications and medical management. Counseling. 13. Fluids, electrolytes, and nutrition. Carbohydrate controlled diet. 14. DVT prophylaxis. Subcutaneous Lovenox (patient refusing). 15. Plan. Continue antimicrobials as per ID. Continue local wound care. Await clinical improvement/placement to a nursing facility. The patient was seen in collaboration with Dr. Banks. Result Diagram: 02/27/19 0617 Results 24hrs Laboratory Tests Test 02/27/19 17:15 02/27/19 21:13 Bedside Glucose 91 108 Exam/Review of Systems Exam Vitals Vital Signs Date Temp Pulse Resp B/P (MAP) Pulse Ox O2 O2 Flow FiO2 Time Delivery Rate 02/28/19 97.9 76 18 146/71 98 Room Air 13:47 (96) Intake and Output 02/27/19 02/27/19 02/28/19 1515:00 23:00 07:00 IntakeIntake Total 650 ml 550 ml 100 ml OutputOutput Total 1500 ml 500 ml BalanceBalance -850 ml 50 ml 100 ml Results Results 24hrs Laboratory Tests Test 02/27/19 17:15 02/27/19 21:13 Bedside Glucose 91 108 Medications Medication Current Medications IV Flush (NS 3 ml) 3 ml PER PROTOCOL IV Last administered on 02/14/19at 08:13; Admin Dose 3 ML; Start 02/06/19 at 05:30 Ondansetron HCl (Zofran Inj) 4 mg Q6H PRN IV NAUSEA/VOMITING; Start 02/06/19 at 05:30 Acetaminophen (Tylenol Tab) 650 mg Q6H PRN PO .PAIN 1-3 OR TEMP Last administered on 02/06/19at 21:57; Admin Dose 650 MG; Start 02/06/19 at 05:30 Acetaminophen/ Hydrocodone Bitart ([place] (5/325)) 1 tab Q6H PRN PO .MOD PAIN 4- 6 Last administered on 02/28/19at 08:29; Admin Dose 1 TAB; Start 02/06/19 at 05:30 Morphine Sulfate (morphine) 2 mg Q4H PRN IV .SEVERE PAIN 7-10; Start 02/06/19 at 05:30 Docusate Sodium (Colace) 100 mg Q12H PRN PO .CONSTIPATION; Start 02/06/19 at 05:30 Magnesium Hydroxide (Milk Of Mag) 30 ml DAILY PRN PO .CONSTIPATION Last administered on 02/09/19at 13:58; Admin Dose 30 ML; Start 02/06/19 at 05:30 Lorazepam (Ativan) 0.5 mg Q6H PRN IV ANXIETY; Start 02/06/19 at 05:30 Albuterol/ Ipratropium (Duoneb) 3 ml Q4H RESP THERAPY PRN HHN SHORTNESS OF BREATH; Start 02/06/19 at 05:30 Hydralazine HCl (Apresoline) 10 mg Q6H PRN IV ELEVATED BLOOD PRESSURE Last administered on 02/27/19at 21:14; Admin Dose 10 MG; Start 02/06/19 at 05:30 Clonidine (Catapres) 0.1 mg Q6H PRN PO ELEVATED SYSTOLIC BP Last administered on 02/18/19 13:40; Admin Dose 0.1 MG; Start 02/06/19 at 05:30 Nitroglycerin (Nitroglycerin (Sl Tab) 0.4 Mg) 1 tab Q5M PRN SL ANGINA; Start 02/06/19 at 05:30 Ascorbic Acid (Vitamin C) 500 mg DAILY PO Last administered on 02/10/19 08:25; Admin Dose 500 MG; Start 02/06/19 at 09:00 Gabapentin (Neurontin) 100 mg TID PO Last administered on 02/28/19 08:16; Admin Dose 100 MG; Start 02/06/19 at 09:00 Multivitamins Therapeutic (Theragran) 1 tab DAILY PO Last administered on 02/10/19 08:25; Admin Dose 1 TAB; Start 02/06/19 at 09:00 Miscellaneous Information Patients own medicat... BID@ XX ; Start 02/06/19 at 16:00 Diagnostic Test (Pha) (Accu-Chek) 1 ea 02 XX ; Start 02/07/19 at 02:00 Insulin Aspart (Novolog Insulin Pen) NOVOLOG *MILD* ALGORITHM WITH MEALS BEDTIME SC Last administered on 02/26/19 12:44; Admin Dose 3 UNIT; Start 02/06/19 at 18:00 Miscellaneous Information 1 ea NOTE XX ; Start 02/06/19 at 14:30 Glucose (Glutose) 15 gm Q15M PRN PO DECREASED GLUCOSE; Start 02/06/19 at 14:30 Glucose (Glutose) 22.5 gm Q15M PRN PO DECREASED GLUCOSE; Start 02/06/19 at 14:30 Dextrose (D50w Syringe) 25 ml Q15M PRN IV DECREASED GLUCOSE; Start 02/06/19 at 14:30 Dextrose (D50w Syringe) 50 ml Q15M PRN IV DECREASED GLUCOSE; Start 02/06/19 at 14:30 Glucagon (Glucagen) 1 mg Q15M PRN IM DECREASED GLUCOSE; Start 02/06/19 at 14:30 Glucose (Glutose) 15 gm Q15M PRN BUCCAL DECREASED GLUCOSE; Start 02/06/19 at 14 :30 Collagenase (Santyl) 1 applic DAILY TOP Last administered on 02/27/19at 08:48; Admin Dose 1 APPLIC; Start 02/06/19 at 18:30 Collagenase (Santyl) 1 applic PRN PRN TOP WHEN SOILED; Start 02/06/19 at 18:30 Lisinopril (Zestril) 40 mg DAILY PO Last administered on 02/28/19at 08:16; Admin Dose 40 MG; Start 02/08/19 at 09:00 Metformin HCl (Glucophage) 1,000 mg WITH BREAKFAST DINNE PO Last administered on 02/28/19at 08:16; Admin Dose 1,000 MG; Start 02/07/19 at 18:00 Clotrimazole (Lotrimin Cr) 1 applic BID TOP Last administered on 02/26/19at 08:42; Admin Dose 1 APPLIC; Start 02/07/19 at 11:30 Sodium Hypochlorite (Dakins Diluted (1/40)) 1 applic DAILY TP Last administered on 02/27/19at 08:49; Admin Dose 1 APPLIC; Start 02/09/19 at 09:00 Nifedipine (Procardia Xl) 30 mg BID PO Last administered on 02/28/19at 08:17; Admin Dose 30 MG; Start 02/11/19 at 15:00 Polyethylene Glycol (Miralax) 17 gm DAILY PO Last administered on 02/12/19at 12:40; Admin Dose 17 GM; Start 02/12/19 at 12:30 Famotidine (Pepcid) 20 mg DAILY PO Last administered on 02/27/19at 08:47; Admin Dose 20 MG; Start 02/14/19 at 09:00 Metoprolol Tartrate (Lopressor) 100 mg BID PO Last administered on 02/28/19at 08:17; Admin Dose 100 MG; Start 02/13/19 at 21:00 Aspirin (Halfprin) 81 mg DAILY PO ; Start 02/14/19 at 09:00 Lactobacillus Acidophilus/ Rhamnosus (Culturelle) 1 cap BID PO Last administered on 02/28/19at 08:16; Admin Dose 1 CAP; Start 02/13/19 at 21:00 Enoxaparin Sodium (Lovenox) 40 mg DAILY SC Last administered on 02/14/19 08:19; Admin Dose 40 MG; Start 02/14/19 at 09:00 Nicotine (Nicoderm 14 Mg/ 24hr) 1 patch DAILY PRN TRANSDERM CONTROL WITHDRAWAL SYMPTOMS; Start 02/13/19 at 15:00 IV Flush (NS 10 ml) 10 ml PRN PRN IV IV PROTOCOL; Start 02/20/19 at 12:30 Vancomycin HCl (Vanco Iv Per Pharmacy) VANCOMYCIN PER PHARMACY PER PROTOCOL XX ; Start 02/27/19 at 11:00 Ceftriaxone Sodium 50 ml @ 100 mls/hr Q24H IVPB Last administered on 02/28/19at 10:36; Admin Dose 100 MLS/HR; Start 02/27/19 at 11:00 Fluconazole (Diflucan) 100 mg DAILY PO Last administered on 02/28/19at 08:16; Admin Dose 100 MG; Start 02/27/19 at 15:00 Vancomycin HCl 100 ml @ 100 mls/hr Q12H IVPB Last administered on 02/28/19at 11:51; Admin Dose 100 MLS/HR; Start 02/28/19 at 00:00 Miscellaneous Information (*Rx Drug Level Order Reminder*) 1 2300 ONCE XX ; Start 02/28/19 at 23:00; Stop 02/28/19 at 23:01 EV HARO NP Feb 28, 2019 15:02
[2019-02-28 20:10] VITALS: BP 154/73; PULSE 73; RESP 18
[2019-03-01] MEDS: VANCOMYCIN 500 MG (PMX) 100 ML IVPB SCH (00:47)
[2019-03-01] MEDS: ACCU-CHEK XX SCH (02:00)
[2019-03-01] MEDS: INSULIN ASPART [NOVOLOG] 3 ML PEN SC SCH ×4 (08:00→21:00)
[2019-03-01 08:19] VITALS: BP 179/83; PULSE 70; RESP 18
[2019-03-01] MEDS: DAKINS 0.0125%(1/40) 473 ML SOLUTION TP SCH (08:36)
[2019-03-01] MEDS: COLLAGENASE 5 GM (UD JAR) TOP SCH (08:36)
[2019-03-01] MEDS: CLOTRIMAZOLE 1% 30 GM CR TOP SCH ×2 (08:36→21:00)
[2019-03-01] MEDS: ASPIRIN (EC) 81 MG TAB PO SCH (08:37)
[2019-03-01] MEDS: FAMOTIDINE 20 MG TAB PO SCH (08:37)
[2019-03-01] MEDS: ASCORBIC ACID 500 MG TAB PO SCH (08:37)
[2019-03-01] MEDS: ENOXAPARIN 40 MG/0.4 ML SYG SC SCH (08:37)
[2019-03-01] MEDS: MULTIVITAMINS THERAPEUTIC TAB PO SCH (08:37)
[2019-03-01] MEDS: POLYETHYLENE GLYCOL 17 GM PACKET PO SCH (08:37)
[2019-03-01] MEDS: FLUCONAZOLE 100 MG TAB PO SCH (08:38)
[2019-03-01] MEDS: GABAPENTIN 100 MG CAP PO SCH ×3 (08:48→20:32)
[2019-03-01] MEDS: LACTOBACILLUS RHAMNOSUS CAP PO SCH ×2 (08:48→20:32)
[2019-03-01] MEDS: metFORMIN 500 MG TAB PO SCH ×2 (08:48→17:10)
[2019-03-01] MEDS: hydrALAzine 20 MG INJ IV PRN (08:48)
[2019-03-01] MEDS: METOPROLOL 100 MG TAB PO SCH ×2 (08:50→21:00)
[2019-03-01] MEDS: NIFEdipine (XL) 30 MG TAB PO SCH ×2 (08:51→21:00)
[2019-03-01] MEDS: LISINOPRIL 20 MG TAB PO SCH (08:51)
[2019-03-01] MEDS: CEFTRIAXONE 1 GM/50 ML (PMX) 50 ML IVPB SCH (11:42)
[2019-03-01] MEDS: VANCOMYCIN HCL 1.25 GM in SOD CHLORIDE 0.9% 250 ML IVPB SCH (13:20)
--- NOTE | 2019-03-01 13:27 | CONS ---
Assessment/Plan Assessment/Plan Hospital Course (Demo Recall) No acute events. Patient looks comfortable, no fevers overnight Left and right buttock wounds grew MRSA, Pseudomonas, Enterococcus, Corynebacterium group JK Blood culture on admission grew staph species 1 out of 2 sets Antimicrobials: Vanco Rocephin fluconazole ALLERGIES: HE IS NOT ALLERGIC TO ANY ANTIBIOTICS. PHYSICAL EXAMINATION: GENERAL: Well-developed elderly -[place] man who is in no distress. HEENT: Head is atraumatic, normocephalic. Sclerae are anicteric. Buccal mucosa is dry. NECK: Supple. CHEST: Rise symmetrical. Breath sounds diminished to bases. HEART: S1, S2. ABDOMEN: Soft. Bowel tones are present. EXTREMITIES: With bilateral lower extremities dressing intact. Assessment: 1. Bilateral lower extremities diabetic ulcerations 2. Left foot osteomyelitis 3. Diabetes with diabetic neuropathy 4. Bilateral buttocks ulcerations, status post debridement 5. Coag negative staph bacteremia consistent with contaminant 6. Noncompliance Plan: Remains stable, continue antibiotics till March 22 to complete course for OM Consultation Date/Type/Reason Admit Date/Time Feb 06, 2019 at 03:18 Initial Consult Date 02/07/19 Type of Consult id Requesting Provider: MASOUD SOLANO DPM Date/Time of Note DATE: 03/01/19 TIME: 13:27 Exam/Review of Systems Exam Vitals Vital Signs Date Temp Pulse Resp B/P (MAP) Pulse Ox O2 O2 Flow FiO2 Time Delivery Rate 03/01/19 98.0 70 18 179/83 96 Room Air 08:19 (115) Intake and Output 02/28/19 02/28/19 03/01/19 1515:00 23:00 07:00 IntakeIntake Total 150 ml 100 ml OutputOutput Total 1200 ml 600 ml BalanceBalance -1050 ml -600 ml 100 ml Results Result Diagram: 03/01/19 0813 Results 24hrs Laboratory Tests Test 02/28/19 20:13 02/28/19 22:46 03/01/19 08:13 03/01/19 08:42 Bedside Glucose 119 96 Vancomycin Level 17.4 Trough Sodium Level 139 Potassium Level 4.1 Chloride Level 107 Carbon Dioxide Level 24 Anion Gap 8 Blood Urea Nitrogen 29 H Creatinine 1.09 Est Glomerular > 60 Filtrat Rate mL/min Glucose Level 85 Calcium Level 8.7 Test 03/01/19 12:09 Bedside Glucose 111 Medications Medication Current Medications IV Flush (NS 3 ml) 3 ml PER PROTOCOL IV Last administered on 02/14/19 08:13; Admin Dose 3 ML; Start 02/06/19 at 05:30 Ondansetron HCl (Zofran Inj) 4 mg Q6H PRN IV NAUSEA/VOMITING; Start 02/06/19 at 05:30 Acetaminophen (Tylenol Tab) 650 mg Q6H PRN PO .PAIN 1-3 OR TEMP Last administered on 02/06/19at 21:57; Admin Dose 650 MG; Start 02/06/19 at 05:30 Acetaminophen/ Hydrocodone Bitart ([place] (5/325)) 1 tab Q6H PRN PO .MOD PAIN 4- 6 Last administered on 02/28/19 20:28; Admin Dose 1 TAB; Start 02/06/19 at 05:30 Morphine Sulfate (morphine) 2 mg Q4H PRN IV .SEVERE PAIN 7-10; Start 02/06/19 at 05:30 Docusate Sodium (Colace) 100 mg Q12H PRN PO .CONSTIPATION; Start 02/06/19 at 05:30 Magnesium Hydroxide (Milk Of Mag) 30 ml DAILY PRN PO .CONSTIPATION Last administered on 02/09/19at 13:58; Admin Dose 30 ML; Start 02/06/19 at 05:30 Lorazepam (Ativan) 0.5 mg Q6H PRN IV ANXIETY; Start 02/06/19 at 05:30 Albuterol/ Ipratropium (Duoneb) 3 ml Q4H RESP THERAPY PRN HHN SHORTNESS OF BREATH; Start 02/06/19 at 05:30 Hydralazine HCl (Apresoline) 10 mg Q6H PRN IV ELEVATED BLOOD PRESSURE Last administered on 03/01/19at 08:48; Admin Dose 10 MG; Start 02/06/19 at 05:30 Clonidine (Catapres) 0.1 mg Q6H PRN PO ELEVATED SYSTOLIC BP Last administered on 02/18/19at 13:40; Admin Dose 0.1 MG; Start 02/06/19 at 05:30 Nitroglycerin (Nitroglycerin (Sl Tab) 0.4 Mg) 1 tab Q5M PRN SL ANGINA; Start 02/06/19 at 05:30 Ascorbic Acid (Vitamin C) 500 mg DAILY PO Last administered on 02/10/19 08:25; Admin Dose 500 MG; Start 02/06/19 at 09:00 Gabapentin (Neurontin) 100 mg TID PO Last administered on 03/01/19at 13:20; Admin Dose 100 MG; Start 02/06/19 at 09:00 Multivitamins Therapeutic (Theragran) 1 tab DAILY PO Last administered on 02/10/19 08:25; Admin Dose 1 TAB; Start 02/06/19 at 09:00 Miscellaneous Information Patients own medicat... BID@ XX ; Start 02/06/19 at 16:00 Diagnostic Test (Pha) (Accu-Chek) 1 ea 02 XX ; Start 02/07/19 at 02:00 Insulin Aspart (Novolog Insulin Pen) NOVOLOG *MILD* ALGORITHM WITH MEALS BEDTIME SC Last administered on 02/26/19at 12:44; Admin Dose 3 UNIT; Start 02/06/19 at 18:00 Miscellaneous Information 1 ea NOTE XX ; Start 02/06/19 at 14:30 Glucose (Glutose) 15 gm Q15M PRN PO DECREASED GLUCOSE; Start 02/06/19 at 14:30 Glucose (Glutose) 22.5 gm Q15M PRN PO DECREASED GLUCOSE; Start 02/06/19 at 14:30 Dextrose (D50w Syringe) 25 ml Q15M PRN IV DECREASED GLUCOSE; Start 02/06/19 at 14:30 Dextrose (D50w Syringe) 50 ml Q15M PRN IV DECREASED GLUCOSE; Start 02/06/19 at 14:30 Glucagon (Glucagen) 1 mg Q15M PRN IM DECREASED GLUCOSE; Start 02/06/19 at 14:30 Glucose (Glutose) 15 gm Q15M PRN BUCCAL DECREASED GLUCOSE; Start 02/06/19 at 14:30 Collagenase (Santyl) 1 applic DAILY TOP Last administered on 03/01/19at 08:36; Admin Dose 1 APPLIC; Start 02/06/19 at 18:30 Collagenase (Santyl) 1 applic PRN PRN TOP WHEN SOILED; Start 02/06/19 at 18:30 Lisinopril (Zestril) 40 mg DAILY PO Last administered on 02/28/19at 08:16; Admin Dose 40 MG; Start 02/08/19 at 09:00 Metformin HCl (Glucophage) 1,000 mg WITH BREAKFAST DINNE PO Last administered on 03/01/19 08:48; Admin Dose 1,000 MG; Start 02/07/19 at 18:00 Clotrimazole (Lotrimin Cr) 1 applic BID TOP Last administered on 03/01/19 08:36; Admin Dose 1 APPLIC; Start 02/07/19 at 11:30 Sodium Hypochlorite (Dakins Diluted (40)) 1 applic DAILY TP Last administered on 03/01/19 08:36; Admin Dose 1 APPLIC; Start 02/09/19 at 09:00 Nifedipine (Procardia Xl) 30 mg BID PO Last administered on 02/28/19 08:17; Admin Dose 30 MG; Start 02/11/19 at 15:00 Polyethylene Glycol (Miralax) 17 gm DAILY PO Last administered on 02/12/19at 12:40; Admin Dose 17 GM; Start 02/12/19 at 12:30 Famotidine (Pepcid) 20 mg DAILY PO Last administered on 02/27/19at 08:47; Admin Dose 20 MG; Start 02/14/19 at 09:00 Metoprolol Tartrate (Lopressor) 100 mg BID PO Last administered on 02/28/19 08:17; Admin Dose 100 MG; Start 02/13/19 at 21:00 Aspirin (Halfprin) 81 mg DAILY PO ; Start 02/14/19 at 09:00 Lactobacillus Acidophilus/ Rhamnosus (Culturelle) 1 cap BID PO Last administered on 03/01/19 08:48; Admin Dose 1 CAP; Start 02/13/19 at 21:00 Enoxaparin Sodium (Lovenox) 40 mg DAILY SC Last administered on 02/14/19 08:19; Admin Dose 40 MG; Start 02/14/19 at 09:00 Nicotine (Nicoderm 14 Mg/ 24hr) 1 patch DAILY PRN TRANSDERM CONTROL WITHDRAWAL SYMPTOMS; Start 02/13/19 at 15:00 IV Flush (NS 10 ml) 10 ml PRN PRN IV IV PROTOCOL; Start 02/20/19 at 12:30 Vancomycin HCl (Vanco Iv Per Pharmacy) VANCOMYCIN PER PHARMACY PER PROTOCOL XX ; Start 02/27/19 at 11:00 Ceftriaxone Sodium 50 ml @ 100 mls/hr Q24H IVPB Last administered on 03/01/19at 11:42; Admin Dose 100 MLS/HR; Start 02/27/19 at 11:00 Fluconazole (Diflucan) 100 mg DAILY PO Last administered on 02/28/19at 08:16; Admin Dose 100 MG; Start 02/27/19 at 15:00 Vancomycin HCl 1.25 gm/Sodium Chloride 250 ml @ 83.333 mls/ hr Q24H IVPB Last administered on 03/01/19at 13:20; Admin Dose 83.333 MLS/HR; Start 03/01/19 at 13:00 CHANTALE RAMIREZ NP Mar 01, 2019 13:27
--- NOTE | 2019-03-01 13:37 | PN ---
Date/Time of Note Date/Time of Note DATE: 03/01/19 TIME: 13:37 Assessment/Plan VTE Prophylaxis Risk score (from Ns)>0 risk: 4 SCD applied (from Ns): No SCD contraindicated: patient refusal Pharmacological prophylaxis: LMWH Pharm contraindication: patient refusal Lines/Catheters IV C[facility] Type (from [facility]): PICC Line Central line still needed: Yes Urinary Cath still in place: Yes Reason Cath still needed: other (indicate) Assessment/Plan Hospital Course SUBJECTIVE: Patient refusing most of his medications. OBJECTIVE: Physical Exam General: Adequately build 63 year-old male lying in bed in no apparent distress. HEENT: Normocephalic, atraumatic. Eyes: Anicteric sclerae, conjunctivae clear. ENT: Nasal septum midline, oral mucosa moist. Neck supple. Respiratory: Bilaterally diminished. Breath sounds. No use of accessory muscles of respiration. No adventitious breath sounds. Cardiovascular: S1, S2 heard. No murmurs or gallops. Abdomen: Soft, nontender, and nondistended. Bowel sounds positive in all 4 quadrants. Genitourinary: Deferred. Extremities: Bilateral lower extremity contracted with bilateral foot wounds Neurologic: The patient is awake, alert, and oriented. Labs & Vitals per chart ASSESSMENT & PLAN 63-year-old male who is wheelchair-bound, past medical history of hypertension, sacral decubitus ulcers, diabetes, osteomyelitis, smoking history, homelessness, anemia, and neurogenic bladder, who presented with worsening diabetic foot ulcers on his bilateral feet. 1. Osteomyelitis of the left fifth metatarsal (01/20/2019). Incompletely treated with IV antibiotics as per recommendations because of noncompliance. S/P Daptomycin/gentamicin until 02/23/2019, then changed to IV Vanco plus Rocephin 03/22/2019 to complete the course of antibiotics. ID following. 2. Chronic bilateral lower extremity ulcers. Continue local wound care. Status post podiatry evaluation. 3. Multiple bilateral gluteal wounds. Continue antimicrobials as per ID. Status post debridement on 02/07/2019. Cultures showing polymicrobial's including MRSA and VRE. 4. Hypertension. Continue antihypertensives. 5. Diabetes mellitus. Hemoglobin A1c 6.5. Continue metformin. Refusing insulin. 6. Peripheral neuropathy. Continue gabapentin. 7. Normocytic anemia. Probably anemia of chronic disease. 8. Nicotine use. Cessation advised. 9. Debility with contractures. Wheelchair-bound. Physical therapy. 10. 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 transfer worker following. 11. Chronic neurogenic bladder. Chanel cath in place. 12. Noncompliance with medications and medical management. Counseling. 13. Fluids, electrolytes, and nutrition. Carbohydrate controlled diet. 14. DVT prophylaxis. Subcutaneous Lovenox (patient refusing). 15. Plan. Continue antimicrobials as per ID. Continue local wound care. Await clinical improvement/placement to a nursing facility. The patient was seen in collaboration with Dr. Banks. Result Diagram: 03/01/1913 Results 24hrs Laboratory Tests Test 02/28/19 20:13 02/28/19 22:46 03/01/19 08:13 03/01/19 08:42 Bedside Glucose 119 96 Vancomycin Level 17.4 Trough Sodium Level 139 Potassium Level 4.1 Chloride Level 107 Carbon Dioxide Level 24 Anion Gap 8 Blood Urea Nitrogen 29 H Creatinine 1.09 Est Glomerular > 60 Filtrat Rate mL/min Glucose Level 85 Calcium Level 8.7 Test 03/01/19 12:09 Bedside Glucose 111 Exam/Review of Systems Exam Vitals Vital Signs Date Temp Pulse Resp B/P (MAP) Pulse Ox O2 O2 Flow FiO2 Time Delivery Rate 03/01/19 98.0 70 18 179/83 96 Room Air 08:19 (115) Intake and Output 02/28/19 02/28/19 03/01/19 1515:00 23:00 07:00 IntakeIntake Total 150 ml 100 ml OutputOutput Total 1200 ml 600 ml BalanceBalance -1050 ml -600 ml 100 ml Results Results 24hrs Laboratory Tests Test 02/28/19 20:13 02/28/19 22:46 03/01/19 08:13 03/01/19 08:42 Bedside Glucose 119 96 Vancomycin Level 17.4 Trough Sodium Level 139 Potassium Level 4.1 Chloride Level 107 Carbon Dioxide Level 24 Anion Gap 8 Blood Urea Nitrogen 29 H Creatinine 1.09 Est Glomerular > 60 Filtrat Rate mL/min Glucose Level 85 Calcium Level 8.7 Test 03/01/19 12:09 Bedside Glucose 111 Medications Medication Current Medications IV Flush (NS 3 ml) 3 ml PER PROTOCOL IV Last administered on 02/14/19at 08:13; Admin Dose 3 ML; Start 02/06/19 at 05:30 Ondansetron HCl (Zofran Inj) 4 mg Q6H PRN IV NAUSEA/VOMITING; Start 02/06/19 at 05:30 Acetaminophen (Tylenol Tab) 650 mg Q6H PRN PO .PAIN 1-3 OR TEMP Last administered on 02/06/19 21:57; Admin Dose 650 MG; Start 02/06/19 at 05:30 Acetaminophen/ Hydrocodone Bitart ([place] (5/325)) 1 tab Q6H PRN PO .MOD PAIN 4- 6 Last administered on 02/28/19 20:28; Admin Dose 1 TAB; Start 02/06/19 at 05:30 Morphine Sulfate (morphine) 2 mg Q4H PRN IV .SEVERE PAIN 7-10; Start 02/06/19 at 05:30 Docusate Sodium (Colace) 100 mg Q12H PRN PO .CONSTIPATION; Start 02/06/19 at 05:30 Magnesium Hydroxide (Milk Of Mag) 30 ml DAILY PRN PO .CONSTIPATION Last administered on 02/09/19 13:58; Admin Dose 30 ML; Start 02/06/19 at 05:30 Lorazepam (Ativan) 0.5 mg Q6H PRN IV ANXIETY; Start 02/06/19 at 05:30 Albuterol/ Ipratropium (Duoneb) 3 ml Q4H RESP THERAPY PRN HHN SHORTNESS OF BREATH; Start 02/06/19 at 05:30 Hydralazine HCl (Apresoline) 10 mg Q6H PRN IV ELEVATED BLOOD PRESSURE Last administered on 03/01/19 08:48; Admin Dose 10 MG; Start 02/06/19 at 05:30 Clonidine (Catapres) 0.1 mg Q6H PRN PO ELEVATED SYSTOLIC BP Last administered on 02/18/19 13:40; Admin Dose 0.1 MG; Start 02/06/19 at 05:30 Nitroglycerin (Nitroglycerin (Sl Tab) 0.4 Mg) 1 tab Q5M PRN SL ANGINA; Start 02/06/19 at 05:30 Ascorbic Acid (Vitamin C) 500 mg DAILY PO Last administered on 02/10/19 08:25; Admin Dose 500 MG; Start 02/06/19 at 09:00 Gabapentin (Neurontin) 100 mg TID PO Last administered on 03/01/19 13:20; Admin Dose 100 MG; Start 02/06/19 at 09:00 Multivitamins Therapeutic (Theragran) 1 tab DAILY PO Last administered on 02/10/19at 08:25; Admin Dose 1 TAB; Start 02/06/19 at 09:00 Miscellaneous Information Patients own medicat... BID@10,16 XX ; Start 02/06/19 at 16:00 Diagnostic Test (Pha) (Accu-Chek) 1 ea 02 XX ; Start 02/07/19 at 02:00 Insulin Aspart (Novolog Insulin Pen) NOVOLOG *MILD* ALGORITHM WITH MEALS BEDTIME SC Last administered on 02/26/19at 12:44; Admin Dose 3 UNIT; Start 02/06/19 at 18:00 Miscellaneous Information 1 ea NOTE XX ; Start 02/06/19 at 14:30 Glucose (Glutose) 15 gm Q15M PRN PO DECREASED GLUCOSE; Start 02/06/19 at 14:30 Glucose (Glutose) 22.5 gm Q15M PRN PO DECREASED GLUCOSE; Start 02/06/19 at 14:30 Dextrose (D50w Syringe) 25 ml Q15M PRN IV DECREASED GLUCOSE; Start 02/06/19 at 14:30 Dextrose (D50w Syringe) 50 ml Q15M PRN IV DECREASED GLUCOSE; Start 02/06/19 at 14:30 Glucagon (Glucagen) 1 mg Q15M PRN IM DECREASED GLUCOSE; Start 02/06/19 at 14:30 Glucose (Glutose) 15 gm Q15M PRN BUCCAL DECREASED GLUCOSE; Start 02/06/19 at 14:30 Collagenase (Santyl) 1 applic DAILY TOP Last administered on 03/01/19at 08:36; Admin Dose 1 APPLIC; Start 02/06/19 at 18:30 Collagenase (Santyl) 1 applic PRN PRN TOP WHEN SOILED; Start 02/06/19 at 18:30 Lisinopril (Zestril) 40 mg DAILY PO Last administered on 02/28/19at 08:16; Admin Dose 40 MG; Start 02/08/19 at 09:00 Metformin HCl (Glucophage) 1,000 mg WITH BREAKFAST DINNE PO Last administered on 03/01/19at 08:48; Admin Dose 1,000 MG; Start 02/07/19 at 18:00 Clotrimazole (Lotrimin Cr) 1 applic BID TOP Last administered on 03/01/19 08:36; Admin Dose 1 APPLIC; Start 02/07/19 at 11:30 Sodium Hypochlorite (Dakins Diluted ()) 1 applic DAILY TP Last administered on 03/01/19 08:36; Admin Dose 1 APPLIC; Start 02/09/19 at 09:00 Nifedipine (Procardia Xl) 30 mg BID PO Last administered on 02/28/19 08:17; Admin Dose 30 MG; Start 02/11/19 at 15:00 Polyethylene Glycol (Miralax) 17 gm DAILY PO Last administered on 02/12/19 12:40; Admin Dose 17 GM; Start 02/12/19 at 12:30 Famotidine (Pepcid) 20 mg DAILY PO Last administered on 02/27/19 08:47; Admin Dose 20 MG; Start 02/14/19 at 09:00 Metoprolol Tartrate (Lopressor) 100 mg BID PO Last administered on 02/28/19 08:17; Admin Dose 100 MG; Start 02/13/19 at 21:00 Aspirin (Halfprin) 81 mg DAILY PO ; Start 02/14/19 at 09:00 Lactobacillus Acidophilus/ Rhamnosus (Culturelle) 1 cap BID PO Last administered on 03/01/19 08:48; Admin Dose 1 CAP; Start 02/13/19 at 21:00 Enoxaparin Sodium (Lovenox) 40 mg DAILY SC Last administered on 02/14/19 08:19; Admin Dose 40 MG; Start 02/14/19 at 09:00 Nicotine (Nicoderm 14 Mg/ 24hr) 1 patch DAILY PRN TRANSDERM CONTROL WITHDRAWAL SYMPTOMS; Start 02/13/19 at 15:00 IV Flush (NS 10 ml) 10 ml PRN PRN IV IV PROTOCOL; Start 02/20/19 at 12:30 Vancomycin HCl (Vanco Iv Per Pharmacy) VANCOMYCIN PER PHARMACY PER PROTOCOL XX ; Start 02/27/19 at 11:00 Ceftriaxone Sodium 50 ml @ 100 mls/hr Q24H IVPB Last administered on 03/01/19at 11:42; Admin Dose 100 MLS/HR; Start 02/27/19 at 11:00 Fluconazole (Diflucan) 100 mg DAILY PO Last administered on 02/28/19 08:16; Admin Dose 100 MG; Start 02/27/19 at 15:00 Vancomycin HCl 1.25 gm/Sodium Chloride 250 ml @ 83.333 mls/ hr Q24H IVPB Last administered on 03/01/19at 13:20; Admin Dose 83.333 MLS/HR; Start 03/01/19 at 13:00 EV HARO NP Mar 01, 2019 13:37
[2019-03-01 14:43] VITALS: BP 178/85; PULSE 76; RESP 18
--- NOTE | 2019-03-01 18:58 | PN ---
Date/Time of Note Date/Time of Note DATE: 03/01/19 TIME: 18:56 Assessment/Plan Lines/Catheters IV Catheter Type (from [facility]): PICC Line Chanel in Place (from [facility]): Yes Assessment/Plan Chief Complaint/Hosp Course 1. Multiple wounds s/p debridement of bilat buttock 02/07/19 bilateral buttock: Continuing to heal well; repeat wound cultures noted -further debridement prn -Continue local care -frequent turning and off-loading -low air loss mattress -vitamin c -optimize nutrition -bilateral LE wounds: per podiatry 2. Osteomyelitis BLE s/p iv abx per ID -Antibiotics per ID 3. Hypertension -nutrition and medication management 4. Diabetes: hga1c: 6.5 -nutrition and medication management 5. Diabetic neuropathy -safety precs (ensure no lines/tubes, etc on skin) -diabetes optimization 6. Hypochromic anemia -monitor and tx as needed 7. Depression -psych optimization 8. Hypocalcemia: likely multifactorial -nutrition optimization -treat infections 9. 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 Intermittent noncompliance w meds -supportive Thank you. Patient seen and examined in collaboration with Dr. Kj Moran Subjective 24 Hr Interval Summary Continues to refuse some meds. No fevers, chills, sob, congested cough, cp, palpitations, koch, dizziness, n/v/d/dysuria. Exam/Review of Systems Vital Signs Vitals Vital Signs Date Temp Pulse Resp B/P (MAP) Pulse Ox O2 O2 Flow FiO2 Time Delivery Rate 03/01/19 98.4 76 18 178/85 97 14:43 (116) 03/01/19 Room Air 08:19 Intake and Output 02/28/19 02/28/19 03/01/19 1414:59 22:59 06:59 IntakeIntake Total 150 ml 100 ml OutputOutput Total 1200 ml 600 ml BalanceBalance -1050 ml -600 ml 100 ml Exam Free Text/Dictation Constitutional: alert, oriented, well developed Psych: nl mood/affect, labile Head: normocephalic, atraumatic Eyes: nl conjunctiva, EOMI, nl lids, nl sclera ENMT: nl external ears & nose, nl lips & teeth, mucosa pink and moist Neck: supple, non-tender; No jvd Respiratory: normal air movement; No congested cough Cardiovascular: regular rate and rhythm, nl pulses; No edema Gastrointestinal: soft, non-tender Genitourinary - Male: nl penis, nl scrotum Musculoskeletal: nl extremities to inspection, other (contracted BLE) Extremities: normal pulses; No pitting pedal edema Neurological: nl mental status, nl speech, nl strength Skin: other (multiple wounds: bilat buttock: clean, no periwound erythema, no drainage); BLE: wounds: dry No rash or lesions Lymph: No nl lymph nodes Results Result Diagram: 03/01/19 0813 CALLY NOEL NP Mar 01, 2019 18:58
[2019-03-01 19:57] VITALS: BP 168/81; PULSE 80; RESP 18
[2019-03-01] MEDS: HYDROCODONE/APAP (5/325) TAB PO PRN (20:35)
[2019-03-02 01:47] VITALS: BP 164/78; PULSE 84; RESP 18
[2019-03-02] MEDS: ACCU-CHEK XX SCH (02:00)
--- NOTE | 2019-03-02 07:43 | PN ---
Date/Time of Note Date/Time of Note DATE: 03/02/19 TIME: 07:43 Assessment/Plan VTE Prophylaxis Risk score (from Ns)>0 risk: 6 SCD applied (from Ns): No SCD contraindicated: patient refusal Pharmacological prophylaxis: LMWH Pharm contraindication: patient refusal Lines/Catheters IV Catheter Type (from [facility]): PICC Line Central line still needed: Yes Urinary Cath still in place: Yes Reason Cath still needed: other (indicate) Assessment/Plan Hospital Course SUBJECTIVE: Patient refusing most of his medications. BP running high. OBJECTIVE: Physical Exam General: Adequately build 63 year-old male lying in bed in no apparent distress. HEENT: Normocephalic, atraumatic. Eyes: Anicteric sclerae, conjunctivae clear. ENT: Nasal septum midline, oral mucosa moist. Neck supple. Respiratory: Bilaterally diminished. Breath sounds. No use of accessory muscles of respiration. No adventitious breath sounds. Cardiovascular: S1, S2 heard. No murmurs or gallops. Abdomen: Soft, nontender, and nondistended. Bowel sounds positive in all 4 quadrants. Genitourinary: Deferred. Extremities: Bilateral lower extremity contracted with bilateral foot wounds Neurologic: The patient is awake, alert, and oriented. Labs & Vitals per chart ASSESSMENT & PLAN 63-year-old male who is wheelchair-bound, past medical history of hypertension, sacral decubitus ulcers, diabetes, osteomyelitis, smoking history, homelessness, anemia, and neurogenic bladder, who presented with worsening diabetic foot ulcers on his bilateral feet. 1. Osteomyelitis of the left fifth metatarsal (01/20/2019). Incompletely treated with IV antibiotics as per recommendations because of noncompliance. S/P Daptomycin/gentamicin until 02/23/2019, then changed to IV Vanco plus Rocephin 03/22/2019 to complete the course of antibiotics. ID following. 2. Chronic bilateral lower extremity ulcers. Continue local wound care. Status post podiatry evaluation. 3. Multiple bilateral gluteal wounds. Continue antimicrobials as per ID. Status post debridement on 02/07/2019. Cultures showing polymicrobial's including MRSA and VRE. 4. Hypertension. Continue antihypertensives. 5. Diabetes mellitus. Hemoglobin A1c 6.5. Continue metformin. Refusing insulin. 6. Peripheral neuropathy. Continue gabapentin. 7. Normocytic anemia. Probably anemia of chronic disease. 8. Nicotine use. Cessation advised. 9. Debility with contractures. Wheelchair-bound. Physical therapy. 10. 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 funeral workers following. 11. Chronic neurogenic bladder. Chanel cath in place. 12. Noncompliance with medications and medical management. Counseling. 13. Fluids, electrolytes, and nutrition. Carbohydrate controlled diet. 14. DVT prophylaxis. Subcutaneous Lovenox (patient refusing). 15. Plan. Continue antimicrobials as per ID. Continue local wound care. The patient has no isolation and is stable to be discharged with oral antibiotics to complete the rest of the treatment. The patient was seen in collaboration with Dr. Banks. Result Diagram: 03/01/19 0813 Results 24hrs Laboratory Tests Test 03/01/19 08:13 03/01/19 08:42 03/01/19 12:09 03/01/19 17:10 Sodium Level 139 Potassium Level 4.1 Chloride Level 107 Carbon Dioxide Level 24 Anion Gap 8 Blood Urea Nitrogen 29 H Creatinine 1.09 Est Glomerular > 60 Filtrat Rate mL/min Glucose Level 85 Calcium Level 8.7 Bedside Glucose 96 111 84 Test 03/01/19 20:31 Bedside Glucose 165 Exam/Review of Systems Exam Vitals Vital Signs Date Temp Pulse Resp B/P (MAP) Pulse Ox O2 O2 Flow FiO2 Time Delivery Rate 03/02/19 98.1 84 18 164/78 97 01:47 (106) 03/01/19 Room Air 08:19 Intake and Output 03/01/19 03/01/19 03/02/19 1515:00 23:00 07:00 IntakeIntake Total 530 ml 490 ml OutputOutput Total 350 ml 450 ml BalanceBalance 530 ml 140 ml -450 ml Results Results 24hrs Laboratory Tests Test 03/01/19 08:13 03/01/19 08:42 03/01/19 12:09 03/01/19 17:10 Sodium Level 139 Potassium Level 4.1 Chloride Level 107 Carbon Dioxide Level 24 Anion Gap 8 Blood Urea Nitrogen 29 H Creatinine 1.09 Est Glomerular > 60 Filtrat Rate mL/min Glucose Level 85 Calcium Level 8.7 Bedside Glucose 96 111 84 Test 03/01/19 20:31 Bedside Glucose 165 Medications Medication Current Medications IV Flush (NS 3 ml) 3 ml PER PROTOCOL IV Last administered on 02/14/19at 08:13; Admin Dose 3 ML; Start 02/06/19 at 05:30 Ondansetron HCl (Zofran Inj) 4 mg Q6H PRN IV NAUSEA/VOMITING; Start 02/06/19 at 05:30 Acetaminophen (Tylenol Tab) 650 mg Q6H PRN PO .PAIN 1-3 OR TEMP Last administered on 02/06/19 21:57; Admin Dose 650 MG; Start 02/06/19 at 05:30 Acetaminophen/ Hydrocodone Bitart ([place] (5/325)) 1 tab Q6H PRN PO .MOD PAIN 4- 6 Last administered on 03/01/19 20:35; Admin Dose 1 TAB; Start 02/06/19 at 05:30 Morphine Sulfate (morphine) 2 mg Q4H PRN IV .SEVERE PAIN 7-10; Start 02/06/19 at 05:30 Docusate Sodium (Colace) 100 mg Q12H PRN PO .CONSTIPATION; Start 02/06/19 at 05:30 Magnesium Hydroxide (Milk Of Mag) 30 ml DAILY PRN PO .CONSTIPATION Last administered on 02/09/19 13:58; Admin Dose 30 ML; Start 02/06/19 at 05:30 Lorazepam (Ativan) 0.5 mg Q6H PRN IV ANXIETY; Start 02/06/19 at 05:30 Albuterol/ Ipratropium (Duoneb) 3 ml Q4H RESP THERAPY PRN HHN SHORTNESS OF BREATH; Start 02/06/19 at 05:30 Hydralazine HCl (Apresoline) 10 mg Q6H PRN IV ELEVATED BLOOD PRESSURE Last administered on 03/01/19 08:48; Admin Dose 10 MG; Start 02/06/19 at 05:30 Clonidine (Catapres) 0.1 mg Q6H PRN PO ELEVATED SYSTOLIC BP Last administered on 02/18/19 13:40; Admin Dose 0.1 MG; Start 02/06/19 at 05:30 Nitroglycerin (Nitroglycerin (Sl Tab) 0.4 Mg) 1 tab Q5M PRN SL ANGINA; Start 02/06/19 at 05:30 Ascorbic Acid (Vitamin C) 500 mg DAILY PO Last administered on 02/10/19 08:25; Admin Dose 500 MG; Start 02/06/19 at 09:00 Gabapentin (Neurontin) 100 mg TID PO Last administered on 6/29/19at 20:32; Admin Dose 100 MG; Start 02/06/19 at 09:00 Multivitamins Therapeutic (Theragran) 1 tab DAILY PO Last administered on 02/10/19at 08:25; Admin Dose 1 TAB; Start 02/06/19 at 09:00 Miscellaneous Information Patients own medicat... BID@10,16 XX ; Start 02/06/19 at 16:00 Diagnostic Test (Pha) (Accu-Chek) 1 ea 02 XX ; Start 02/07/19 at 02:00 Insulin Aspart (Novolog Insulin Pen) NOVOLOG *MILD* ALGORITHM WITH MEALS BEDTIME SC Last administered on 02/26/19at 12:44; Admin Dose 3 UNIT; Start 02/06/19 at 18:00 Miscellaneous Information 1 ea NOTE XX ; Start 02/06/19 at 14:30 Glucose (Glutose) 15 gm Q15M PRN PO DECREASED GLUCOSE; Start 02/06/19 at 14:30 Glucose (Glutose) 22.5 gm Q15M PRN PO DECREASED GLUCOSE; Start 02/06/19 at 14:30 Dextrose (D50w Syringe) 25 ml Q15M PRN IV DECREASED GLUCOSE; Start 02/06/19 at 14:30 Dextrose (D50w Syringe) 50 ml Q15M PRN IV DECREASED GLUCOSE; Start 02/06/19 at 14:30 Glucagon (Glucagen) 1 mg Q15M PRN IM DECREASED GLUCOSE; Start 02/06/19 at 14:30 Glucose (Glutose) 15 gm Q15M PRN BUCCAL DECREASED GLUCOSE; Start 02/06/19 at 14:30 Collagenase (Santyl) 1 applic DAILY TOP Last administered on 03/01/19at 08:36; Admin Dose 1 APPLIC; Start 02/06/19 at 18:30 Collagenase (Santyl) 1 applic PRN PRN TOP WHEN SOILED; Start 02/06/19 at 18:30 Lisinopril (Zestril) 40 mg DAILY PO Last administered on 02/28/19at 08:16; Admin Dose 40 MG; Start 02/08/19 at 09:00 Metformin HCl (Glucophage) 1,000 mg WITH BREAKFAST DINNE PO Last administered on 03/01/19at 08:48; Admin Dose 1,000 MG; Start 02/07/19 at 18:00 Clotrimazole (Lotrimin Cr) 1 applic BID TOP Last administered on 03/01/19 08:36; Admin Dose 1 APPLIC; Start 02/07/19 at 11:30 Sodium Hypochlorite (Dakins Diluted ()) 1 applic DAILY TP Last administered on 03/01/19 08:36; Admin Dose 1 APPLIC; Start 02/09/19 at 09:00 Nifedipine (Procardia Xl) 30 mg BID PO Last administered on 02/28/19 08:17; Admin Dose 30 MG; Start 02/11/19 at 15:00 Polyethylene Glycol (Miralax) 17 gm DAILY PO Last administered on 02/12/19 12:40; Admin Dose 17 GM; Start 02/12/19 at 12:30 Famotidine (Pepcid) 20 mg DAILY PO Last administered on 02/27/19 08:47; Admin Dose 20 MG; Start 02/14/19 at 09:00 Metoprolol Tartrate (Lopressor) 100 mg BID PO Last administered on 02/28/19 08:17; Admin Dose 100 MG; Start 02/13/19 at 21:00 Aspirin (Halfprin) 81 mg DAILY PO ; Start 02/14/19 at 09:00 Lactobacillus Acidophilus/ Rhamnosus (Culturelle) 1 cap BID PO Last adminis tered on 03/01/19 20:32; Admin Dose 1 CAP; Start 02/13/19 at 21:00 Enoxaparin Sodium (Lovenox) 40 mg DAILY SC Last administered on 02/14/19 08:19; Admin Dose 40 MG; Start 02/14/19 at 09:00 Nicotine (Nicoderm 14 Mg/ 24hr) 1 patch DAILY PRN TRANSDERM CONTROL WITHDRAWAL SYMPTOMS; Start 02/13/19 at 15:00 IV Flush (NS 10 ml) 10 ml PRN PRN IV IV PROTOCOL; Start 02/20/19 at 12:30 Vancomycin HCl (Vanco Iv Per Pharmacy) VANCOMYCIN PER PHARMACY PER PROTOCOL XX ; Start 02/27/19 at 11:00 Ceftriaxone Sodium 50 ml @ 100 mls/hr Q24H IVPB Last administered on 03/01/19at 11:42; Admin Dose 100 MLS/HR; Start 02/27/19 at 11:00 Fluconazole (Diflucan) 100 mg DAILY PO Last administered on 6/28/19at 08:16; A dmin Dose 100 MG; Start 02/27/19 at 15:00 Vancomycin HCl 1.25 gm/Sodium Chloride 250 ml @ 83.333 mls/ hr Q24H IVPB Last administered on 03/01/19at 13:20; Admin Dose 83.333 MLS/HR; Start 03/01/19 at 1 3:00 EV HARO NP Mar 02, 2019 07:43
[2019-03-02 07:44] VITALS: BP 199/90; PULSE 73; RESP 18
[2019-03-02] MEDS: INSULIN ASPART [NOVOLOG] 3 ML PEN SC SCH ×4 (08:00→21:00)
[2019-03-02] MEDS: metFORMIN 500 MG TAB PO SCH ×2 (08:00→17:16)
[2019-03-02] MEDS: ASPIRIN (EC) 81 MG TAB PO SCH (08:57)
[2019-03-02] MEDS: LACTOBACILLUS RHAMNOSUS CAP PO SCH ×3 (08:57→21:00)
[2019-03-02] MEDS: POLYETHYLENE GLYCOL 17 GM PACKET PO SCH (08:57)
[2019-03-02] MEDS: FLUCONAZOLE 100 MG TAB PO SCH (08:57)
[2019-03-02] MEDS: FAMOTIDINE 20 MG TAB PO SCH (08:58)
[2019-03-02] MEDS: ASCORBIC ACID 500 MG TAB PO SCH (08:58)
[2019-03-02] MEDS: MULTIVITAMINS THERAPEUTIC TAB PO SCH (08:58)
[2019-03-02] MEDS: NIFEdipine (XL) 30 MG TAB PO SCH ×2 (08:58→21:00)
[2019-03-02] MEDS: LISINOPRIL 20 MG TAB PO SCH (08:58)
[2019-03-02] MEDS: ENOXAPARIN 40 MG/0.4 ML SYG SC SCH (08:59)
[2019-03-02] MEDS: METOPROLOL 100 MG TAB PO SCH ×2 (09:00→21:00)
[2019-03-02] MEDS: GABAPENTIN 100 MG CAP PO SCH ×3 (09:17→21:20)
[2019-03-02] MEDS: DAKINS 0.0125%(1/40) 473 ML SOLUTION TP SCH (09:18)
[2019-03-02] MEDS: COLLAGENASE 5 GM (UD JAR) TOP SCH (09:19)
[2019-03-02] MEDS: CLOTRIMAZOLE 1% 30 GM CR TOP SCH ×2 (09:19→21:21)
[2019-03-02] MEDS: hydrALAzine 20 MG INJ IV PRN ×2 (09:25→21:23)
[2019-03-02] MEDS: CEFTRIAXONE 1 GM/50 ML (PMX) 50 ML IVPB SCH (11:15)
--- NOTE | 2019-03-02 11:28 | PN ---
Date/Time of Note Date/Time of Note DATE: 03/02/19 TIME: 11:27 Assessment/Plan Lines/Catheters IV Catheter Type (from [facility]): PICC Line Chanel in Place (from [facility]): Yes Assessment/Plan Chief Complaint/Hosp Course 1. Multiple wounds s/p debridement of bilat buttock 02/07/19 bilateral buttock: Continuing to heal well; repeat wound cultures noted -further debridement prn -Continue local care> same tx -frequent turning and off-loading -low air loss mattress -vitamin c -optimize nutrition -bilateral LE wounds: per podiatry 2. Osteomyelitis BLE s/p iv abx per ID -Antibiotics per ID 3. Hypertension -nutrition and medication management 4. Diabetes: hga1c: 6.5 -nutrition and medication management 5. Diabetic neuropathy -safety precs (ensure no lines/tubes, etc on skin) -diabetes optimization 6. Hypochromic anemia -monitor and tx as needed 7. Depression -psych optimization 8. Hypocalcemia: likely multifactorial -nutrition optimization -treat infections 9. 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 Intermittent noncompliance w meds -supportive Thank you. Patient seen and examined in collaboration with Dr. Kj Moran Subjective 24 Hr Interval Summary No acute events. Continuing to refuse antihypertensives. No fevers, chills, sob, congested cough, cp, palpitations, koch, dizziness, n/v/d/dysuria. Exam/Review of Systems Vital Signs Vitals Vital Signs Date Temp Pulse Resp B/P (MAP) Pulse Ox O2 O2 Flow FiO2 Time Delivery Rate 03/02/19 97.7 73 18 199/90 97 07:44 (126) 03/01/19 Room Air 08:19 Intake and Output 03/01/19 03/01/19 03/02/19 1515:00 23:00 07:00 IntakeIntake Total 530 ml 490 ml OutputOutput Total 350 ml 450 ml BalanceBalance 530 ml 140 ml -450 ml Exam Free Text/Dictation Constitutional: alert, oriented, well developed Psych: nl mood/affect, labile Head: normocephalic, atraumatic Eyes: nl conjunctiva, EOMI, nl lids, nl sclera ENMT: nl external ears & nose, nl lips & teeth, mucosa pink and moist Neck: supple, non-tender; No jvd Respiratory: normal air movement; No congested cough Cardiovascular: regular rate and rhythm, nl pulses; No edema Gastrointestinal: soft, non-tender Genitourinary - Male: nl penis, nl scrotum Musculoskeletal: nl extremities to inspection, other (contracted BLE) Extremities: normal pulses; No pitting pedal edema Neurological: nl mental status, nl speech, nl strength Skin: other (multiple wounds: bilat buttock: clean, no periwound erythema, no drainage-improving); BLE: wounds: dry No rash or lesions Lymph: No nl lymph nodes Results Result Diagram: 03/01/19 0813 CALLY NOEL NP Mar 02, 2019 11:28
--- NOTE | 2019-03-02 11:38 | CONS ---
Assessment/Plan Assessment/Plan Hospital Course (Demo Recall) No acute events. Patient looks comfortable, no fevers overnight Left and right buttock wounds grew MRSA, Pseudomonas, Enterococcus, Corynebacterium group JK Blood culture on admission grew staph species 1 out of 2 sets Antimicrobials: Vanco Rocephin fluconazole ALLERGIES: HE IS NOT ALLERGIC TO ANY ANTIBIOTICS. PHYSICAL EXAMINATION: GENERAL: Well-developed elderly -[place] man who is in no distress. HEENT: Head is atraumatic, normocephalic. Sclerae are anicteric. Buccal mucosa is dry. NECK: Supple. CHEST: Rise symmetrical. Breath sounds diminished to bases. HEART: S1, S2. ABDOMEN: Soft. Bowel tones are present. EXTREMITIES: With bilateral lower extremities dressing intact. Assessment: 1. Bilateral lower extremities diabetic ulcerations 2. Left foot osteomyelitis 3. Diabetes with diabetic neuropathy 4. Bilateral buttocks ulcerations, status post debridement 5. Coag negative staph bacteremia consistent with contaminant 6. Noncompliance Plan: Remains stable, completed 6 weeks ab for OM, will send him on PO Bactrim for 2 more weeks when he is ready to leave Consultation Date/Type/Reason Admit Date/Time Feb 06, 2019 at 03:18 Initial Consult Date 02/07/19 Type of Consult id Requesting Provider: MASOUD SOLANO DPM Date/Time of Note DATE: 03/02/19 TIME: 11:37 Exam/Review of Systems Exam Vitals Vital Signs Date Temp Pulse Resp B/P (MAP) Pulse Ox O2 O2 Flow FiO2 Time Delivery Rate 03/02/19 97.7 73 18 199/90 97 07:44 (126) 03/01/19 Room Air 08:19 Intake and Output 03/01/19 03/01/19 03/02/19 1414:59 22:59 06:59 IntakeIntake Total 530 ml 490 ml OutputOutput Total 350 ml 450 ml BalanceBalance 530 ml 140 ml -450 ml Results Result Diagram: 03/02/19 1021 Results 24hrs Laboratory Tests Test 03/01/19 12:09 03/01/19 17:10 03/01/19 20:31 03/02/19 08:17 Bedside Glucose 111 84 165 89 Test 03/02/19 10:21 Sodium Level 140 Potassium Level 3.8 Chloride Level 108 Carbon Dioxide Level 23 Anion Gap 9 Blood Urea Nitrogen 33 H Creatinine 0.94 Est Glomerular > 60 Filtrat Rate mL/min Glucose Level 122 Calcium Level 8.9 Medications Medication Current Medications IV Flush (NS 3 ml) 3 ml PER PROTOCOL IV Last administered on 02/14/19 08:13; Admin Dose 3 ML; Start 02/06/19 at 05:30 Ondansetron HCl (Zofran Inj) 4 mg Q6H PRN IV NAUSEA/VOMITING; Start 02/06/19 at 05:30 Acetaminophen (Tylenol Tab) 650 mg Q6H PRN PO .PAIN 1-3 OR TEMP Last administered on 02/06/19 21:57; Admin Dose 650 MG; Start 02/06/19 at 05:30 Acetaminophen/ Hydrocodone Bitart ([place] (5/325)) 1 tab Q6H PRN PO .MOD PAIN 4- 6 Last administered on 03/01/19 20:35; Admin Dose 1 TAB; Start 02/06/19 at 05:30 Morphine Sulfate (morphine) 2 mg Q4H PRN IV .SEVERE PAIN 7-10; Start 02/06/19 at 05:30 Docusate Sodium (Colace) 100 mg Q12H PRN PO .CONSTIPATION; Start 02/06/19 at 05:30 Magnesium Hydroxide (Milk Of Mag) 30 ml DAILY PRN PO .CONSTIPATION Last administered on 02/09/19 13:58; Admin Dose 30 ML; Start 02/06/19 at 05:30 Lorazepam (Ativan) 0.5 mg Q6H PRN IV ANXIETY; Start 02/06/19 at 05:30 Albuterol/ Ipratropium (Duoneb) 3 ml Q4H RESP THERAPY PRN HHN SHORTNESS OF BREATH; Start 02/06/19 at 05:30 Hydralazine HCl (Apresoline) 10 mg Q6H PRN IV ELEVATED BLOOD PRESSURE Last administered on 03/02/19 09:25; Admin Dose 10 MG; Start 02/06/19 at 05:30 Clonidine (Catapres) 0.1 mg Q6H PRN PO ELEVATED SYSTOLIC BP Last administered on 02/18/19 13:40; Admin Dose 0.1 MG; Start 02/06/19 at 05:30 Nitroglycerin (Nitroglycerin (Sl Tab) 0.4 Mg) 1 tab Q5M PRN SL ANGINA; Start 02/06/19 at 05:30 Ascorbic Acid (Vitamin C) 500 mg DAILY PO Last administered on 02/10/19 08:25; Admin Dose 500 MG; Start 02/06/19 at 09:00 Gabapentin (Neurontin) 100 mg TID PO Last administered on 03/02/19 09:17; Admin Dose 100 MG; Start 02/06/19 at 09:00 Multivitamins Therapeutic (Theragran) 1 tab DAILY PO Last administered on 02/10/19at 08:25; Admin Dose 1 TAB; Start 02/06/19 at 09:00 Miscellaneous Information Patients own medicat... BID@10,16 XX ; Start 02/06/19 at 16:00 Diagnostic Test (Pha) (Accu-Chek) 1 ea 02 XX ; Start 02/07/19 at 02:00 Insulin Aspart (Novolog Insulin Pen) NOVOLOG *MILD* ALGORITHM WITH MEALS BEDTIME SC Last administered on 02/26/19at 12:44; Admin Dose 3 UNIT; Start 02/06/19 at 18:00 Miscellaneous Information 1 ea NOTE XX ; Start 02/06/19 at 14:30 Glucose (Glutose) 15 gm Q15M PRN PO DECREASED GLUCOSE; Start 02/06/19 at 14:30 Glucose (Glutose) 22.5 gm Q15M PRN PO DECREASED GLUCOSE; Start 02/06/19 at 14:30 Dextrose (D50w Syringe) 25 ml Q15M PRN IV DECREASED GLUCOSE; Start 02/06/19 at 14:30 Dextrose (D50w Syringe) 50 ml Q15M PRN IV DECREASED GLUCOSE; Start 02/06/19 at 14:30 Glucagon (Glucagen) 1 mg Q15M PRN IM DECREASED GLUCOSE; Start 02/06/19 at 14:30 Glucose (Glutose) 15 gm Q15M PRN BUCCAL DECREASED GLUCOSE; Start 02/06/19 at 14:30 Collagenase (Santyl) 1 applic DAILY TOP Last administered on 03/02/19 09:19; Admin Dose 1 APPLIC; Start 02/06/19 at 18:30 Collagenase (Santyl) 1 applic PRN PRN TOP WHEN SOILED; Start 02/06/19 at 18:30 Lisinopril (Zestril) 40 mg DAILY PO Last administered on 02/28/19 08:16; Admin Dose 40 MG; Start 02/08/19 at 09:00 Metformin HCl (Glucophage) 1,000 mg WITH BREAKFAST DINNE PO Last administered on 03/01/19 08:48; Admin Dose 1,000 MG; Start 02/07/19 at 18:00 Clotrimazole (Lotrimin Cr) 1 applic BID TOP Last administered on 03/02/19 09:19; Admin Dose 1 APPLIC; Start 02/07/19 at 11:30 Sodium Hypochlorite (Dakins Diluted (40)) 1 applic DAILY TP Last administered on 03/02/19 09:18; Admin Dose 1 APPLIC; Start 02/09/19 at 09:00 Nifedipine (Procardia Xl) 30 mg BID PO Last administered on 02/28/19 08:17; Admin Dose 30 MG; Start 02/11/19 at 15:00 Polyethylene Glycol (Miralax) 17 gm DAILY PO Last administered on 02/12/19at 12:40; Admin Dose 17 GM; Start 02/12/19 at 12:30 Famotidine (Pepcid) 20 mg DAILY PO Last administered on 02/27/19at 08:47; Admin Dose 20 MG; Start 02/14/19 at 09:00 Metoprolol Tartrate (Lopressor) 100 mg BID PO Last administered on 02/28/19 08:17; Admin Dose 100 MG; Start 02/13/19 at 21:00 Aspirin (Halfprin) 81 mg DAILY PO ; Start 02/14/19 at 09:00 Lactobacillus Acidophilus/ Rhamnosus (Culturelle) 1 cap BID PO Last administered on 03/02/19 09:17; Admin Dose 1 CAP; Start 02/13/19 at 21:00 Enoxaparin Sodium (Lovenox) 40 mg DAILY SC Last administered on 02/14/19 08:19; Admin Dose 40 MG; Start 02/14/19 at 09:00 Nicotine (Nicoderm 14 Mg/ 24hr) 1 patch DAILY PRN TRANSDERM CONTROL WITHDRAWAL SYMPTOMS; Start 02/13/19 at 15:00 IV Flush (NS 10 ml) 10 ml PRN PRN IV IV PROTOCOL; Start 02/20/19 at 12:30 Vancomycin HCl (Vanco Iv Per Pharmacy) VANCOMYCIN PER PHARMACY PER PROTOCOL XX ; Start 6/27/19 at 11:00 Ceftriaxone Sodium 50 ml @ 100 mls/hr Q24H IVPB Last administered on 03/02/19at 11:15; Admin Dose 100 MLS/HR; Start 02/27/19 at 11:00 Fluconazole (Diflucan) 100 mg DAILY PO Last administered on 02/28/19at 08:16; Admin Dose 100 MG; Start 02/27/19 at 15:00 Vancomycin HCl 1.25 gm/Sodium Chloride 250 ml @ 83.333 mls/ hr Q24H IVPB Last administered on 03/01/19at 13:20; Admin Dose 83.333 MLS/HR; Start 03/01/19 at 13:00 CHANTALE RAMIREZ NP Mar 02, 2019 11:37
[2019-03-02] MEDS: VANCOMYCIN HCL 1.25 GM in SOD CHLORIDE 0.9% 250 ML IVPB SCH (13:27)
[2019-03-02] MEDS: HYDROCODONE/APAP (5/325) TAB PO PRN ×2 (13:27→21:20)
[2019-03-02 14:00] VITALS: BP 183/71; PULSE 80; RESP 17
[2019-03-02 20:30] VITALS: BP 183/91; PULSE 83; PULSE 84; RESP 18
[2019-03-03] MEDS: ACCU-CHEK XX SCH (01:19)
[2019-03-03 02:00] VITALS: BP 165/81; PULSE 80; RESP 18
[2019-03-03 07:33] VITALS: BP 190/89; PULSE 89; RESP 18
[2019-03-03] MEDS: hydrALAzine 20 MG INJ IV PRN ×2 (08:00→20:28)
[2019-03-03] MEDS: INSULIN ASPART [NOVOLOG] 3 ML PEN SC SCH ×4 (08:00→20:31)
[2019-03-03] MEDS: ASCORBIC ACID 500 MG TAB PO SCH (08:41)
[2019-03-03] MEDS: LISINOPRIL 20 MG TAB PO SCH (08:41)
[2019-03-03] MEDS: MULTIVITAMINS THERAPEUTIC TAB PO SCH (08:42)
[2019-03-03] MEDS: ASPIRIN (EC) 81 MG TAB PO SCH (08:42)
[2019-03-03] MEDS: POLYETHYLENE GLYCOL 17 GM PACKET PO SCH (08:42)
[2019-03-03] MEDS: METOPROLOL 100 MG TAB PO SCH ×2 (08:42→20:30)
[2019-03-03] MEDS: NIFEdipine (XL) 30 MG TAB PO SCH ×2 (08:42→20:30)
[2019-03-03] MEDS: ENOXAPARIN 40 MG/0.4 ML SYG SC SCH (08:46)
[2019-03-03] MEDS: LACTOBACILLUS RHAMNOSUS CAP PO SCH ×2 (08:46→20:27)
[2019-03-03] MEDS: GABAPENTIN 100 MG CAP PO SCH ×3 (08:47→20:27)
[2019-03-03] MEDS: FAMOTIDINE 20 MG TAB PO SCH (08:47)
[2019-03-03] MEDS: COLLAGENASE 5 GM (UD JAR) TOP SCH (08:48)
[2019-03-03] MEDS: FLUCONAZOLE 100 MG TAB PO SCH (08:48)
[2019-03-03] MEDS: DAKINS 0.0125%(1/40) 473 ML SOLUTION TP SCH (08:48)
[2019-03-03] MEDS: CLOTRIMAZOLE 1% 30 GM CR TOP SCH ×2 (08:49→20:31)
[2019-03-03] MEDS: metFORMIN 500 MG TAB PO SCH ×2 (08:51→17:13)
--- NOTE | 2019-03-03 10:35 | PN ---
Date/Time of Note Date/Time of Note DATE: 03/03/19 TIME: 10:35 Assessment/Plan VTE Prophylaxis Risk score (from Ns)>0 risk: 8 SCD applied (from [facility] [place]): No SCD contraindicated: patient refusal Pharmacological prophylaxis: LMWH Pharm contraindication: patient refusal Lines/Catheters [facility] PICC Line Central line still needed: Yes Urinary Cath still in place: Yes Reason Cath still needed: other (indicate) Assessment/Plan Hospital Course SUBJECTIVE: Patient refusing most of his medications. BP running high. OBJECTIVE: Physical Exam General: Adequately build 63 year-old male lying in bed in no apparent distress. HEENT: Normocephalic, atraumatic. Eyes: Anicteric sclerae, conjunctivae clear. ENT: Nasal septum midline, oral mucosa moist. Neck supple. Respiratory: Bilaterally diminished. Breath sounds. No use of accessory muscles of respiration. No adventitious breath sounds. Cardiovascular: S1, S2 heard. No murmurs or gallops. Abdomen: Soft, nontender, and nondistended. Bowel sounds positive in all 4 quadrants. Genitourinary: Deferred. Extremities: Bilateral lower extremity contracted with bilateral foot wounds Neurologic: The patient is awake, alert, and oriented. Labs & Vitals per chart ASSESSMENT & PLAN 63-year-old male who is wheelchair-bound, past medical history of hypertension, sacral decubitus ulcers, diabetes, osteomyelitis, smoking history, homelessness, anemia, and neurogenic bladder, who presented with worsening diabetic foot ulcers on his bilateral feet. 1. Osteomyelitis of the left fifth metatarsal (01/20/2019). Incompletely treated with IV antibiotics as per recommendations because of noncompliance. S/P Daptomycin/gentamicin until 02/23/2019, then changed to IV Vanco plus Rocephin 03/22/2019 to complete the course of antibiotics. ID following. 2. Chronic bilateral lower extremity ulcers. Continue local wound care. Status post podiatry evaluation. 3. Multiple bilateral gluteal wounds. Continue antimicrobials as per ID. Status post debridement on 02/07/2019. Cultures showing polymicrobial's including MRSA and VRE. 4. Hypertension. Continue antihypertensives. 5. Diabetes mellitus. Hemoglobin A1c 6.5. Continue metformin. Refusing insulin. 6. Peripheral neuropathy. Continue gabapentin. 7. Normocytic anemia. Probably anemia of chronic disease. 8. Nicotine use. Cessation advised. 9. Debility with contractures. Wheelchair-bound. Physical therapy. 10. 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 11. Chronic neurogenic bladder. Chanel cath in place. 12. Noncompliance with medications and medical management. Counseling. 13. Fluids, electrolytes, and nutrition. Carbohydrate controlled diet. 14. DVT prophylaxis. Subcutaneous Lovenox (patient refusing). 15. Plan. Continue antimicrobials as per ID. Continue local wound care. Trial of clonidine patch. The patient has no isolation and is stable to be discharged with oral antibiotics to complete the rest of the treatment. The patient was seen in collaboration with Dr. Oleary. Result Diagram: 03/03/19 0859 Results 24hrs Laboratory Tests Test 03/02/19 12:34 03/02/19 17:15 03/02/19 21:04 03/03/19 08:38 Bedside Glucose 141 106 125 127 Test 03/03/19 08:59 Sodium Level 140 Potassium Level 4.1 Chloride Level 109 Carbon Dioxide Level 22 Anion Gap 9 Blood Urea Nitrogen 36 H Creatinine 1.15 Est Glomerular > 60 Filtrat Rate mL/min Glucose Level 123 Calcium Level 8.9 Exam/Review of Systems Exam Vitals Vital Signs Date Temp Pulse Resp B/P (MAP) Pulse Ox O2 O2 Flow FiO2 Time Delivery Rate 03/03/19 98.0 89 18 190/89 94 07:33 (122) 03/03/19 Room Air 02:00 Results Results 24hrs Laboratory Tests Test 03/02/19 12:34 03/02/19 17:15 03/02/19 21:04 03/03/19 08:38 Bedside Glucose 141 106 125 127 Test 03/03/19 08:59 Sodium Level 140 Potassium Level 4.1 Chloride Level 109 Carbon Dioxide Level 22 Anion Gap 9 Blood Urea Nitrogen 36 H Creatinine 1.15 Est Glomerular > 60 Filtrat Rate mL/min Glucose Level 123 Calcium Level 8.9 Medications Medication Current Medications IV Flush (NS 3 ml) 3 ml PER PROTOCOL IV Last administered on 02/14/19at 08:13; Admin Dose 3 ML; Start 02/06/19 at 05:30 Ondansetron HCl (Zofran Inj) 4 mg Q6H PRN IV NAUSEA/VOMITING; Start 02/06/19 at 05:30 Acetaminophen (Tylenol Tab) 650 mg Q6H PRN PO .PAIN 1-3 OR TEMP Last administered on 02/06/19 21:57; Admin Dose 650 MG; Start 02/06/19 at 05:30 Acetaminophen/ Hydrocodone Bitart ([place] (5/325)) 1 tab Q6H PRN PO .MOD PAIN 4- 6 Last administered on 03/02/19 21:20; Admin Dose 1 TAB; Start 02/06/19 at 05:30 Morphine Sulfate (morphine) 2 mg Q4H PRN IV .SEVERE PAIN 7-10; Start 02/06/19 at 05:30 Docusate Sodium (Colace) 100 mg Q12H PRN PO .CONSTIPATION; Start 02/06/19 at 05:30 Magnesium Hydroxide (Milk Of Mag) 30 ml DAILY PRN PO .CONSTIPATION Last administered on 02/09/19 13:58; Admin Dose 30 ML; Start 02/06/19 at 05:30 Lorazepam (Ativan) 0.5 mg Q6H PRN IV ANXIETY; Start 02/06/19 at 05:30 Albuterol/ Ipratropium (Duoneb) 3 ml Q4H RESP THERAPY PRN HHN SHORTNESS OF BREATH; Start 02/06/19 at 05:30 Hydralazine HCl (Apresoline) 10 mg Q6H PRN IV ELEVATED BLOOD PRESSURE Last administered on 03/03/19 08:00; Admin Dose 10 MG; Start 02/06/19 at 05:30 Clonidine (Catapres) 0.1 mg Q6H PRN PO ELEVATED SYSTOLIC BP Last administered on 02/18/19 13:40; Admin Dose 0.1 MG; Start 02/06/19 at 05:30 Nitroglycerin (Nitroglycerin (Sl Tab) 0.4 Mg) 1 tab Q5M PRN SL ANGINA; Start 02/06/19 at 05:30 Ascorbic Acid (Vitamin C) 500 mg DAILY PO Last administered on 02/10/19 08:25; Admin Dose 500 MG; Start 02/06/19 at 09:00 Gabapentin (Neurontin) 100 mg TID PO Last administered on 03/03/19 08:47; Admin Dose 100 MG; Start 02/06/19 at 09:00 Multivitamins Therapeutic (Theragran) 1 tab DAILY PO Last administered on 02/10/19 08:25; Admin Dose 1 TAB; Start 02/06/19 at 09:00 Miscellaneous Information Patients own medicat... BID@10,16 XX ; Start 02/06/19 at 16:00 Diagnostic Test (Pha) (Accu-Chek) 1 ea 02 XX ; Start 02/07/19 at 02:00 Insulin Aspart (Novolog Insulin Pen) NOVOLOG *MILD* ALGORITHM WITH MEALS BEDTIME SC Last administered on 02/26/19at 12:44; Admin Dose 3 UNIT; Start 02/06/19 at 18:00 Miscellaneous Information 1 ea NOTE XX ; Start 02/06/19 at 14:30 Glucose (Glutose) 15 gm Q15M PRN PO DECREASED GLUCOSE; Start 02/06/19 at 14:30 Glucose (Glutose) 22.5 gm Q15M PRN PO DECREASED GLUCOSE; Start 02/06/19 at 14:30 Dextrose (D50w Syringe) 25 ml Q15M PRN IV DECREASED GLUCOSE; Start 02/06/19 at 14:30 Dextrose (D50w Syringe) 50 ml Q15M PRN IV DECREASED GLUCOSE; Start 02/06/19 at 14:30 Glucagon (Glucagen) 1 mg Q15M PRN IM DECREASED GLUCOSE; Start 02/06/19 at 14:30 Glucose (Glutose) 15 gm Q15M PRN BUCCAL DECREASED GLUCOSE; Start 02/06/19 at 14:30 Collagenase (Santyl) 1 applic DAILY TOP Last administered on 03/03/19at 08:48; Admin Dose 1 APPLIC; Start 02/06/19 at 18:30 Collagenase (Santyl) 1 applic PRN PRN TOP WHEN SOILED; Start 02/06/19 at 18:30 Lisinopril (Zestril) 40 mg DAILY PO Last administered on 02/28/19at 08:16; Admin Dose 40 MG; Start 02/08/19 at 09:00 Metformin HCl (Glucophage) 1,000 mg WITH BREAKFAST DINNE PO Last administered on 03/03/19at 08:51; Admin Dose 1,000 MG; Start 02/07/19 at 18:00 Clotrimazole (Lotrimin Cr) 1 applic BID TOP Last administered on 03/03/19at 08:49; Admin Dose 1 APPLIC; Start 02/07/19 at 11:30 Sodium Hypochlorite (Dakins Diluted (1/40)) 1 applic DAILY TP Last administered on 03/03/19 08:48; Admin Dose 1 APPLIC; Start 02/09/19 at 09:00 Nifedipine (Procardia Xl) 30 mg BID PO Last administered on 02/28/19 08:17; Admin Dose 30 MG; Start 02/11/19 at 15:00 Polyethylene Glycol (Miralax) 17 gm DAILY PO Last administered on 02/12/19 12:40; Admin Dose 17 GM; Start 02/12/19 at 12:30 Famotidine (Pepcid) 20 mg DAILY PO Last administered on 03/03/19 08:47; Admin Dose 20 MG; Start 02/14/19 at 09:00 Metoprolol Tartrate (Lopressor) 100 mg BID PO Last administered on 02/28/19 08:17; Admin Dose 100 MG; Start 02/13/19 at 21:00 Aspirin (Halfprin) 81 mg DAILY PO ; Start 02/14/19 at 09:00 Lactobacillus Acidophilus/ Rhamnosus (Culturelle) 1 cap BID PO Last administered on 03/03/19 08:46; Admin Dose 1 CAP; Start 02/13/19 at 21:00 Enoxaparin Sodium (Lovenox) 40 mg DAILY SC Last administered on 03/03/19 08:46; Admin Dose 40 MG; Start 02/14/19 at 09:00 Nicotine (Nicoderm 14 Mg/ 24hr) 1 patch DAILY PRN TRANSDERM CONTROL WITHDRAWAL SYMPTOMS; Start 02/13/19 at 15:00 IV Flush (NS 10 ml) 10 ml PRN PRN IV IV PROTOCOL; Start 02/20/19 at 12:30 Vancomycin HCl (Vanco Iv Per Pharmacy) VANCOMYCIN PER PHARMACY PER PROTOCOL XX ; Start 02/27/19 at 11:00 Ceftriaxone Sodium 50 ml @ 100 mls/hr Q24H IVPB Last administered on 03/02/19 11:15; Admin Dose 100 MLS/HR; Start 02/27/19 at 11:00 Fluconazole (Diflucan) 100 mg DAILY PO Last administered on 03/03/19 08:48; Admin Dose 100 MG; Start 02/27/19 at 15:00 Vancomycin HCl 1.25 gm/Sodium Chloride 250 ml @ 83.333 mls/ hr Q24H IVPB Last administered on 6/30/19at 13:27; Admin Dose 83.333 MLS/HR; Start 03/01/19 at 13:00 EV HARO NP Mar 03, 2019 10:35
[2019-03-03] MEDS ORDERED: ALTEPLASE (CATHFLO) 2 MG INJ CATHETER PRN (11:00)
--- NOTE | 2019-03-03 11:23 | PN ---
Date/Time of Note Date/Time of Note DATE: 03/03/19 TIME: 11:21 Assessment/Plan Lines/Catheters IV Catheter Type (from [facility]): PICC Line Chanel in Place (from [facility]): Yes Assessment/Plan Chief Complaint/Hosp Course 1. Multiple wounds s/p debridement of bilat buttock 02/07/19 bilateral buttock: Continuing to heal well; repeat wound cultures noted -further debridement prn -local care -frequent turning and off-loading -low air loss mattress -vitamin c -optimize nutrition -bilateral LE wounds: per podiatry 2. Osteomyelitis BLE s/p iv abx per ID 3. Hypertension -nutrition and medication management 4. Diabetes: hga1c: 6.5 -nutrition and medication management 5. Diabetic neuropathy -safety precs (ensure no lines/tubes, etc on skin) -diabetes optimization 6. Hypochromic anemia -monitor and tx as needed 7. Depression -psych optimization 8. Hypocalcemia: likely multifactorial -nutrition optimization -treat infections 9. 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 Intermittent noncompliance w meds -supportive & encouragement Thank you Subjective 24 Hr Interval Summary No acute events. Continuing to refuse antihypertensives. No fevers, chills, sob, congested cough, cp, palpitations, koch, dizziness, n/v/d/dysuria. Exam/Review of Systems Vital Signs Vitals Vital Signs Date Temp Pulse Resp B/P (MAP) Pulse Ox O2 O2 Flow FiO2 Time Delivery Rate 03/03/19 98.0 89 18 190/89 94 07:33 (122) 03/03/19 Room Air 02:00 Exam Free Text/Dictation Constitutional: alert, oriented, well developed Psych: nl mood/affect, labile Head: normocephalic, atraumatic Eyes: nl conjunctiva, EOMI, nl lids, nl sclera ENMT: nl external ears & nose, nl lips & teeth, mucosa pink and moist Neck: supple, non-tender; No jvd Respiratory: normal air movement; No congested cough Cardiovascular: regular rate and rhythm, nl pulses; No edema Gastrointestinal: soft, non-tender Genitourinary - Male: nl penis, nl scrotum Musculoskeletal: nl extremities to inspection, other (contracted BLE) Extremities: normal pulses; No pitting pedal edema Neurological: nl mental status, nl speech, nl strength Skin: other (multiple wounds: bilat buttock: clean, no periwound erythema, no drainage-improving); BLE: wounds: dry No rash or lesions Lymph: No nl lymph nodes Results Result Diagram: 03/03/19 0859 MARIE GOODRICH MD Mar 03, 2019 11:23
[2019-03-03] MEDS: CEFTRIAXONE 1 GM/50 ML (PMX) 50 ML IVPB SCH (11:27)
[2019-03-03] MEDS ORDERED: CLONIDINE 0.2 MG/24 HR PATCH TRANSDERM SCH (12:00)
[2019-03-03] MEDS: VANCOMYCIN HCL 1.25 GM in SOD CHLORIDE 0.9% 250 ML IVPB SCH (13:28)
[2019-03-03 14:06] VITALS: BP 177/88; PULSE 83; RESP 18
--- NOTE | 2019-03-03 14:25 | CONS ---
Assessment/Plan Assessment/Plan Hospital Course (Demo Recall) No acute events. looks comfortable, no fevers overnight Left and right buttock wounds grew MRSA, Pseudomonas, Enterococcus, Corynebacterium group JK Blood culture on admission grew staph species 1 out of 2 sets Antimicrobials: Vanco Rocephin fluconazole ALLERGIES: HE IS NOT ALLERGIC TO ANY ANTIBIOTICS. PHYSICAL EXAMINATION: GENERAL: Well-developed elderly -[place]ian man who is in no distress. HEENT: Head is atraumatic, normocephalic. Sclerae are anicteric. Buccal mucosa is dry. NECK: Supple. CHEST: Rise symmetrical. Breath sounds diminished to bases. HEART: S1, S2. ABDOMEN: Soft. Bowel tones are present. EXTREMITIES: With bilateral lower extremities dressing intact. Assessment: 1. Bilateral lower extremities diabetic ulcerations 2. Left foot osteomyelitis 3. Diabetes with diabetic neuropathy 4. Bilateral buttocks ulcerations, status post debridement 5. Coag negative staph bacteremia consistent with contaminant 6. Noncompliance Plan: Remains stable, ok dc on PO Bactrim for 2 more weeks when he is ready to leave Consultation Date/Type/Reason Admit Date/Time Feb 06, 2019 at 03:18 Initial Consult Date 02/07/19 Type of Consult id Requesting Provider: MASOUD SOLANO DPM Date/Time of Note DATE: 03/03/19 TIME: 14:24 Exam/Review of Systems Exam Vitals Vital Signs Date Temp Pulse Resp B/P (MAP) Pulse Ox O2 O2 Flow FiO2 Time Delivery Rate 03/03/19 97.9 83 18 177/88 100 14:06 (117) 03/03/19 Room Air 02:00 Results Result Diagram: 03/03/19 0859 Results 24hrs Laboratory Tests Test 03/02/19 17:15 03/02/19 21:04 03/03/19 08:38 03/03/19 08:59 Bedside Glucose 106 125 127 Sodium Level 140 Potassium Level 4.1 Chloride Level 109 Carbon Dioxide Level 22 Anion Gap 9 Blood Urea Nitrogen 36 H Creatinine 1.15 Est Glomerular Filtrat > 60 Rate mL/min Glucose Level 123 Calcium Level 8.9 Test 03/03/19 12:39 Bedside Glucose 165 Medications Medication Current Medications IV Flush (NS 3 ml) 3 ml PER PROTOCOL IV Last administered on 02/14/19at 08:13; Admin Dose 3 ML; Start 02/06/19 at 05:30 Ondansetron HCl (Zofran Inj) 4 mg Q6H PRN IV NAUSEA/VOMITING; Start 02/06/19 at 05:30 Acetaminophen (Tylenol Tab) 650 mg Q6H PRN PO .PAIN 1-3 OR TEMP Last administered on 02/06/19 21:57; Admin Dose 650 MG; Start 02/06/19 at 05:30 Acetaminophen/ Hydrocodone Bitart ([place] (5/325)) 1 tab Q6H PRN PO .MOD PAIN 4- 6 Last administered on 03/02/19 21:20; Admin Dose 1 TAB; Start 02/06/19 at 05:30 Morphine Sulfate (morphine) 2 mg Q4H PRN IV .SEVERE PAIN 7-10; Start 02/06/19 at 05:30 Docusate Sodium (Colace) 100 mg Q12H PRN PO .CONSTIPATION; Start 02/06/19 at 05:30 Magnesium Hydroxide (Milk Of Mag) 30 ml DAILY PRN PO .CONSTIPATION Last admin istered on 02/09/19at 13:58; Admin Dose 30 ML; Start 02/06/19 at 05:30 Lorazepam (Ativan) 0.5 mg Q6H PRN IV ANXIETY; Start 02/06/19 at 05:30 Albuterol/ Ipratropium (Duoneb) 3 ml Q4H RESP THERAPY PRN HHN SHORTNESS OF BREATH; Start 02/06/19 at 05:30 Hydralazine HCl (Apresoline) 10 mg Q6H PRN IV ELEVATED BLOOD PRESSURE Last administered on 03/03/19 08:00; Admin Dose 10 MG; Start 02/06/19 at 05:30 Clonidine (Catapres) 0.1 mg Q6H PRN PO ELEVATED SYSTOLIC BP Last administered on 02/18/19 13:40; Admin Dose 0.1 MG; Start 02/06/19 at 05:30 Nitroglycerin (Nitroglycerin (Sl Tab) 0.4 Mg) 1 tab Q5M PRN SL ANGINA; Start 02/06/19 at 05:30 Ascorbic Acid (Vitamin C) 500 mg DAILY PO Last administered on 02/10/19 08:25; Admin Dose 500 MG; Start 02/06/19 at 09:00 Gabapentin (Neurontin) 100 mg TID PO Last administered on 03/03/19at 12:42; Admin Dose 100 MG; Start 02/06/19 at 09:00 Multivitamins Therapeutic (Theragran) 1 tab DAILY PO Last administered on 02/10/19at 08:25; Admin Dose 1 TAB; Start 02/06/19 at 09:00 Miscellaneous Information Patients own medicat... BID@10,16 XX ; Start 02/06/19 at 16:00 Diagnostic Test (Pha) (Accu-Chek) 1 ea 02 XX ; Start 02/07/19 at 02:00 Insulin Aspart (Novolog Insulin Pen) NOVOLOG *MILD* ALGORITHM WITH MEALS BEDTIME SC Last administered on 02/26/19at 12:44; Admin Dose 3 UNIT; Start 02/06/19 at 18:00 Miscellaneous Information 1 ea NOTE XX ; Start 02/06/19 at 14:30 Glucose (Glutose) 15 gm Q15M PRN PO DECREASED GLUCOSE; Start 02/06/19 at 14:30 Glucose (Glutose) 22.5 gm Q15M PRN PO DECREASED GLUCOSE; Start 02/06/19 at 14:30 Dextrose (D50w Syringe) 25 ml Q15M PRN IV DECREASED GLUCOSE; Start 02/06/19 at 14:30 Dextrose (D50w Syringe) 50 ml Q15M PRN IV DECREASED GLUCOSE; Start 02/06/19 at 14:30 Glucagon (Glucagen) 1 mg Q15M PRN IM DECREASED GLUCOSE; Start 02/06/19 at 14:30 Glucose (Glutose) 15 gm Q15M PRN BUCCAL DECREASED GLUCOSE; Start 02/06/19 at 14:30 Collagenase (Santyl) 1 applic DAILY TOP Last administered on 03/03/19at 08:48; Admin Dose 1 APPLIC; Start 02/06/19 at 18:30 Collagenase (Santyl) 1 applic PRN PRN TOP WHEN SOILED; Start 02/06/19 at 18:30 Lisinopril (Zestril) 40 mg DAILY PO Last administered on 02/28/19at 08:16; Admin Dose 40 MG; Start 02/08/19 at 09:00 Metformin HCl (Glucophage) 1,000 mg WITH BREAKFAST DINNE PO Last administered on 03/03/19at 08:51; Admin Dose 1,000 MG; Start 02/07/19 at 18:00 Clotrimazole (Lotrimin Cr) 1 applic BID TOP Last administered on 03/03/19at 08:49; Admin Dose 1 APPLIC; Start 02/07/19 at 11:30 Sodium Hypochlorite (Dakins Diluted (40)) 1 applic DAILY TP Last administered on 03/03/19at 08:48; Admin Dose 1 APPLIC; Start 02/09/19 at 09:00 Nifedipine (Procardia Xl) 30 mg BID PO Last administered on 02/28/19at 08:17; Admin Dose 30 MG; Start 02/11/19 at 15:00 Polyethylene Glycol (Miralax) 17 gm DAILY PO Last administered on 02/12/19at 12:40; Admin Dose 17 GM; Start 02/12/19 at 12:30 Famotidine (Pepcid) 20 mg DAILY PO Last administered on 03/03/19at 08:47; Admin Dose 20 MG; Start 02/14/19 at 09:00 Metoprolol Tartrate (Lopressor) 100 mg BID PO Last administered on 02/28/19at 08:17; Admin Dose 100 MG; Start 02/13/19 at 21:00 Aspirin (Halfprin) 81 mg DAILY PO ; Start 02/14/19 at 09:00 Lactobacillus Acidophilus/ Rhamnosus (Culturelle) 1 cap BID PO Last administered on 03/03/19at 08:46; Admin Dose 1 CAP; Start 02/13/19 at 21:00 Enoxaparin Sodium (Lovenox) 40 mg DAILY SC Last administered on 03/03/19at 08:46; Admin Dose 40 MG; Start 02/14/19 at 09:00 Nicotine (Nicoderm 14 Mg/ 24hr) 1 patch DAILY PRN TRANSDERM CONTROL WITHDRAWAL SYMPTOMS; Start 02/13/19 at 15:00 IV Flush (NS 10 ml) 10 ml PRN PRN IV IV PROTOCOL; Start 02/20/19 at 12:30 Vancomycin HCl (Vanco Iv Per Pharmacy) VANCOMYCIN PER PHARMACY PER PROTOCOL XX ; Start 02/27/19 at 11:00 Ceftriaxone Sodium 50 ml @ 100 mls/hr Q24H IVPB Last administered on 03/03/19at 11:27; Admin Dose 100 MLS/HR; Start 02/27/19 at 11:00 Fluconazole (Diflucan) 100 mg DAILY PO Last administered on 03/03/19at 08:48; Admin Dose 100 MG; Start 02/27/19 at 15:00 Vancomycin HCl 1.25 gm/Sodium Chloride 250 ml @ 83.333 mls/ hr Q24H IVPB Last administered on 03/03/19at 13:28; Admin Dose 83.333 MLS/HR; Start 03/01/19 at 13:00 Clonidine HCl (Catapres-Tts 2 Patch) 1 patch Q7D TRANSDERM Last administered on 03/03/19at 12:42; Admin Dose 1 PATCH; Start 03/03/19 at 12:00 Alteplase, Recombinant (Cathflo (Activase)) 2 mg MAY REPEAT X1 PRN CATHETER IF CATHETER REMAINS OCCULUDED; Start 03/03/19 at 11:00; Stop 03/03/19 at 23:59 Miscellaneous Information (*Rx Drug Level Order Reminder*) 1 1200 ONCE XX ; Start 03/04/19 at 12:00; Stop 03/04/19 at 12:01 CHANTALE RAMIREZ NP Mar 03, 2019 14:25
[2019-03-03 19:39] VITALS: BP 185/94; PULSE 92; RESP 19
[2019-03-03] MEDS: NACL 0.9% 3 ML SYG IV SCH (20:27)
[2019-03-03 22:26] VITALS: BP 175/87
[2019-03-04] MEDS: ACCU-CHEK XX SCH (02:00)
[2019-03-04 07:47] VITALS: BP 198/97; PULSE 85; RESP 17
[2019-03-04] MEDS: INSULIN ASPART [NOVOLOG] 3 ML PEN SC SCH ×4 (08:00→21:00)
[2019-03-04] MEDS ORDERED: ALTEPLASE (CATHFLO) 2 MG INJ CATHETER PRN (08:00)
[2019-03-04] MEDS: hydrALAzine 20 MG INJ IV PRN ×3 (08:01→21:15)
[2019-03-04] MEDS: METOPROLOL 100 MG TAB PO SCH ×2 (08:04→21:00)
[2019-03-04] MEDS: POLYETHYLENE GLYCOL 17 GM PACKET PO SCH (08:04)
[2019-03-04] MEDS: ASPIRIN (EC) 81 MG TAB PO SCH (08:04)
[2019-03-04] MEDS: NIFEdipine (XL) 30 MG TAB PO SCH ×2 (08:05→21:00)
[2019-03-04] MEDS: ENOXAPARIN 40 MG/0.4 ML SYG SC SCH (08:05)
[2019-03-04] MEDS: FAMOTIDINE 20 MG TAB PO SCH (08:05)
[2019-03-04] MEDS: ASCORBIC ACID 500 MG TAB PO SCH (08:05)
[2019-03-04] MEDS: LISINOPRIL 20 MG TAB PO SCH (08:05)
[2019-03-04] MEDS: MULTIVITAMINS THERAPEUTIC TAB PO SCH (08:06)
[2019-03-04] MEDS: COLLAGENASE 5 GM (UD JAR) TOP SCH (08:06)
[2019-03-04] MEDS: CLOTRIMAZOLE 1% 30 GM CR TOP SCH ×2 (08:06→21:00)
[2019-03-04] MEDS: LACTOBACILLUS RHAMNOSUS CAP PO SCH ×2 (08:14→21:15)
[2019-03-04] MEDS: metFORMIN 500 MG TAB PO SCH ×2 (08:14→17:05)
[2019-03-04] MEDS: GABAPENTIN 100 MG CAP PO SCH ×3 (08:14→21:15)
[2019-03-04] MEDS: FLUCONAZOLE 100 MG TAB PO SCH (08:15)
[2019-03-04] MEDS: DAKINS 0.0125%(1/40) 473 ML SOLUTION TP SCH (08:15)
[2019-03-04 09:19] VITALS: BP 176/85; PULSE 94; RESP 18
--- NOTE | 2019-03-04 10:40 | PN ---
Date/Time of Note Date/Time of Note DATE: 03/04/19 TIME: 10:32 Assessment/Plan Lines/Catheters IV Catheter Type (from [facility]): PICC Line Chanel in Place (from [facility]): Yes Assessment/Plan Chief Complaint/Hosp Course 1. Multiple wounds s/p debridement of bilat buttock 02/07/19 bilateral buttock: Continuing to heal well; repeat wound cultures noted -further debridement prn -Continue local care> same tx -frequent turning and off-loading -low air loss mattress -vitamin c -optimize nutrition -bilateral LE wounds: per podiatry -dc ok from surgical standpoint 2. Osteomyelitis BLE s/p iv abx per ID -Antibiotics per ID 3. Hypertension -nutrition and medication management 4. Diabetes: hga1c: 6.5 -nutrition and medication management 5. Diabetic neuropathy -safety precs (ensure no lines/tubes, etc on skin) -diabetes optimization 6. Hypochromic anemia -monitor and tx as needed 7. Depression -psych optimization 8. Hypocalcemia: likely multifactorial -nutrition optimization -treat infections 9. 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 Intermittent noncompliance w meds -supportive Thank you. Patient seen and examined in collaboration with Dr. Kj Moran Subjective 24 Hr Interval Summary BP still elevated. No fevers, chills, sob, congested cough, cp, palpitations, koch, dizziness, n/v/d/dysuria. Exam/Review of Systems Vital Signs Vitals Vital Signs Date Temp Pulse Resp B/P (MAP) Pulse Ox O2 O2 Flow FiO2 Time Delivery Rate 03/04/19 94 18 176/85 Room Air 09:19 (115) 03/04/19 98.1 99 07:47 Intake and Output 03/03/19 03/03/19 03/04/19 1515:00 23:00 07:00 IntakeIntake Total 530 ml 600 ml OutputOutput Total 1300 ml BalanceBalance -770 ml 600 ml Exam Free Text/Dictation Constitutional: alert, oriented, well developed Psych: nl mood/affect, labile Head: normocephalic, atraumatic Eyes: nl conjunctiva, EOMI, nl lids, nl sclera ENMT: nl external ears & nose, nl lips & teeth, mucosa pink and moist Neck: supple, non-tender; No jvd Respiratory: normal air movement; No congested cough Cardiovascular: regular rate and rhythm, nl pulses; No edema Gastrointestinal: soft, non-tender Genitourinary - Male: nl penis, nl scrotum Musculoskeletal: nl extremities to inspection, other (contracted BLE) Extremities: normal pulses; No pitting pedal edema Neurological: nl mental status, nl speech, nl strength Skin: other (multiple wounds: bilat buttock: clean, no periwound erythema, no drainage-improving); BLE: wounds: dry No rash or lesions Lymph: No nl lymph nodes Results Result Diagram: 03/03/19 0859 CALLY NOEL NP Mar 04, 2019 10:40
--- NOTE | 2019-03-04 11:13 | CONS ---
Assessment/Plan Assessment/Plan Hospital Course (Demo Recall) No acute events. All noted. looks comfortable, no fevers overnight Left and right buttock wounds grew MRSA, Pseudomonas, Enterococcus, Corynebacterium group JK Blood culture on admission grew staph species 1 out of 2 sets Antimicrobials: Vanco Rocephin fluconazole ALLERGIES: HE IS NOT ALLERGIC TO ANY ANTIBIOTICS. PHYSICAL EXAMINATION: GENERAL: Well-developed elderly -[place]namese man who is in no distress. HEENT: Head is atraumatic, normocephalic. Sclerae are anicteric. Buccal mucosa is dry. NECK: Supple. CHEST: Rise symmetrical. Breath sounds diminished to bases. HEART: S1, S2. ABDOMEN: Soft. Bowel tones are present. EXTREMITIES: With bilateral lower extremities dressing intact. Assessment: 1. Bilateral lower extremities diabetic ulcerations 2. Left foot osteomyelitis 3. Diabetes with diabetic neuropathy 4. Bilateral buttocks ulcerations, status post debridement 5. Coag negative staph bacteremia consistent with contaminant 6. Noncompliance Plan: Remains stable, ok dc on PO Bactrim when he is ready to leave to complete treatment for MRSA OM Consultation Date/Type/Reason Admit Date/Time Feb 06, 2019 at 03:18 Initial Consult Date 02/07/19 Type of Consult id Requesting Provider: MASOUD SOLANO DPM Date/Time of Note DATE: 03/04/19 TIME: 11:13 Exam/Review of Systems Exam Vitals Vital Signs Date Temp Pulse Resp B/P (MAP) Pulse Ox O2 O2 Flow FiO2 Time Delivery Rate 03/04/19 94 18 176/85 Room Air 09:19 (115) 03/04/19 98.1 99 07:47 Intake and Output 03/03/19 03/03/19 03/04/19 1515:00 23:00 07:00 IntakeIntake Total 530 ml 600 ml OutputOutput Total 1300 ml BalanceBalance -770 ml 600 ml Results Result Diagram: 03/03/19 0859 Results 24hrs Laboratory Tests Test 03/03/19 12:39 03/03/19 17:12 03/03/19 20:26 03/04/19 08:13 Bedside Glucose 165 121 100 96 Medications Medication Current Medications IV Flush (NS 3 ml) 3 ml PER PROTOCOL IV Last administered on 03/03/19at 20:27; Admin Dose 3 ML; Start 02/06/19 at 05:30 Ondansetron HCl (Zofran Inj) 4 mg Q6H PRN IV NAUSEA/VOMITING; Start 02/06/19 at 05:30 Acetaminophen (Tylenol Tab) 650 mg Q6H PRN PO .PAIN 1-3 OR TEMP Last administered on 02/06/19 21:57; Admin Dose 650 MG; Start 02/06/19 at 05:30 Acetaminophen/ Hydrocodone Bitart ([place] (5/325)) 1 tab Q6H PRN PO .MOD PAIN 4- 6 Last administered on 03/02/19 21:20; Admin Dose 1 TAB; Start 02/06/19 at 05:30 Morphine Sulfate (morphine) 2 mg Q4H PRN IV .SEVERE PAIN 7-10; Start 02/06/19 at 05:30 Docusate Sodium (Colace) 100 mg Q12H PRN PO .CONSTIPATION; Start 02/06/19 at 05:30 Magnesium Hydroxide (Milk Of Mag) 30 ml DAILY PRN PO .CONSTIPATION Last administered on 02/09/19 13:58; Admin Dose 30 ML; Start 02/06/19 at 05:30 Lorazepam (Ativan) 0.5 mg Q6H PRN IV ANXIETY; Start 02/06/19 at 05:30 Albuterol/ Ipratropium (Duoneb) 3 ml Q4H RESP THERAPY PRN HHN SHORTNESS OF BREATH; Start 02/06/19 at 05:30 Hydralazine HCl (Apresoline) 10 mg Q6H PRN IV ELEVATED BLOOD PRESSURE Last administered on 03/04/19 08:01; Admin Dose 10 MG; Start 02/06/19 at 05:30 Clonidine (Catapres) 0.1 mg Q6H PRN PO ELEVATED SYSTOLIC BP Last administered on 02/18/19 13:40; Admin Dose 0.1 MG; Start 02/06/19 at 05:30 Nitroglycerin (Nitroglycerin (Sl Tab) 0.4 Mg) 1 tab Q5M PRN SL ANGINA; Start 02/06/19 at 05:30 Ascorbic Acid (Vitamin C) 500 mg DAILY PO Last administered on 02/10/19 08:25; Admin Dose 500 MG; Start 02/06/19 at 09:00 Gabapentin (Neurontin) 100 mg TID PO Last administered on 7/2/19at 08:14; Admin Dose 100 MG; Start 02/06/19 at 09:00 Multivitamins Therapeutic (Theragran) 1 tab DAILY PO Last administered on 02/10/19at 08:25; Admin Dose 1 TAB; Start 02/06/19 at 09:00 Miscellaneous Information Patients own medicat... BID@10,16 XX ; Start 02/06/19 at 16:00 Diagnostic Test (Pha) (Accu-Chek) 1 ea 02 XX ; Start 02/07/19 at 02:00 Insulin Aspart (Novolog Insulin Pen) NOVOLOG *MILD* ALGORITHM WITH MEALS BEDTIME SC Last administered on 02/26/19at 12:44; Admin Dose 3 UNIT; Start 02/06/19 at 18:00 Miscellaneous Information 1 ea NOTE XX ; Start 02/06/19 at 14:30 Glucose (Glutose) 15 gm Q15M PRN PO DECREASED GLUCOSE; Start 02/06/19 at 14:30 Glucose (Glutose) 22.5 gm Q15M PRN PO DECREASED GLUCOSE; Start 02/06/19 at 14:30 Dextrose (D50w Syringe) 25 ml Q15M PRN IV DECREASED GLUCOSE; Start 02/06/19 at 14:30 Dextrose (D50w Syringe) 50 ml Q15M PRN IV DECREASED GLUCOSE; Start 02/06/19 at 14:30 Glucagon (Glucagen) 1 mg Q15M PRN IM DECREASED GLUCOSE; Start 02/06/19 at 14:30 Glucose (Glutose) 15 gm Q15M PRN BUCCAL DECREASED GLUCOSE; Start 02/06/19 at 14:30 Collagenase (Santyl) 1 applic DAILY TOP Last administered on 03/03/19at 08:48; Admin Dose 1 APPLIC; Start 02/06/19 at 18:30 Collagenase (Santyl) 1 applic PRN PRN TOP WHEN SOILED; Start 02/06/19 at 18:30 Lisinopril (Zestril) 40 mg DAILY PO Last administered on 02/28/19at 08:16; Admin Dose 40 MG; Start 02/08/19 at 09:00 Metformin HCl (Glucophage) 1,000 mg WITH BREAKFAST DINNE PO Last administered on 03/04/19 08:14; Admin Dose 1,000 MG; Start 02/07/19 at 18:00 Clotrimazole (Lotrimin Cr) 1 applic BID TOP Last administered on 03/03/19 20:31; Admin Dose 1 APPLIC; Start 02/07/19 at 11:30 Sodium Hypochlorite (Dakins Diluted (40)) 1 applic DAILY TP Last administered on 03/04/19 08:15; Admin Dose 1 APPLIC; Start 02/09/19 at 09:00 Nifedipine (Procardia Xl) 30 mg BID PO Last administered on 02/28/19 08:17; Admin Dose 30 MG; Start 02/11/19 at 15:00 Polyethylene Glycol (Miralax) 17 gm DAILY PO Last administered on 02/12/19 12:40; Admin Dose 17 GM; Start 02/12/19 at 12:30 Famotidine (Pepcid) 20 mg DAILY PO Last administered on 03/03/19 08:47; Admin Dose 20 MG; Start 02/14/19 at 09:00 Metoprolol Tartrate (Lopressor) 100 mg BID PO Last administered on 02/28/19 08:17; Admin Dose 100 MG; Start 02/13/19 at 21:00 Aspirin (Halfprin) 81 mg DAILY PO ; Start 02/14/19 at 09:00 Lactobacillus Acidophilus/ Rhamnosus (Culturelle) 1 cap BID PO Last administered on 03/04/19 08:14; Admin Dose 1 CAP; Start 02/13/19 at 21:00 Enoxaparin Sodium (Lovenox) 40 mg DAILY SC Last administered on 03/03/19at 08:46; Admin Dose 40 MG; Start 02/14/19 at 09:00 Nicotine (Nicoderm 14 Mg/ 24hr) 1 patch DAILY PRN TRANSDERM CONTROL WITHDRAWAL SYMPTOMS; Start 02/13/19 at 15:00 IV Flush (NS 10 ml) 10 ml PRN PRN IV IV PROTOCOL; Start 02/20/19 at 12:30 Vancomycin HCl (Vanco Iv Per Pharmacy) VANCOMYCIN PER PHARMACY PER PROTOCOL XX ; Start 02/27/19 at 11:00 Ceftriaxone Sodium 50 ml @ 100 mls/hr Q24H IVPB Last administered on 03/03/19at 11:27; Admin Dose 100 MLS/HR; Start 02/27/19 at 11:00 Fluconazole (Diflucan) 100 mg DAILY PO Last administered on 7/2/19at 08:15; Admin Dose 100 MG; Start 02/27/19 at 15:00 Vancomycin HCl 1.25 gm/Sodium Chloride 250 ml @ 83.333 mls/ hr Q24H IVPB Last administered on 03/03/19at 13:28; Admin Dose 83.333 MLS/HR; Start 03/01/19 at 13:00 Clonidine HCl (Catapres-Tts 2 Patch) 1 patch Q7D TRANSDERM Last administered on 03/03/19at 12:42; Admin Dose 1 PATCH; Start 03/03/19 at 12:00 Miscellaneous Information (*Rx Drug Level Order Reminder*) 1 1200 ONCE XX ; Start 03/04/19 at 12:00; Stop 03/04/19 at 12:01 Alteplase, Recombinant (Cathflo (Activase)) 2 mg MAY REPEAT X1 PRN CATHETER IF CATHETER REMAINS OCCULUDED Last administered on 03/04/19at 10:54; Admin Dose 2 MG; Start 03/04/19 at 08:00 CHANTALE RAMIREZ NP Mar 04, 2019 11:13
--- NOTE | 2019-03-04 11:22 | CONS ---
Assessment/Plan Assessment/Plan Assessment/Plan (Daily) Diabetic foot ulcerations b/l DM2 with peripheral neuropathy Lower extremity weakness Onychomycosis Plan: Recommend to continue with offloading with pillows and continue with daily dressing changes. No signs of infection at this time. No planned procedures. Patient may follow up in outpatient wound care clinic in [facility]. Consultation Date/Type/Reason Admit Date/Time Feb 06, 2019 at 03:18 Initial Consult Date 02/07/19 Requesting Provider: MASOUD SOLANO DPM Date/Time of Note DATE: 03/04/19 TIME: 11:20 24 HR Interval Summary Free Text/Dictation No acute events overnight. Exam/Review of Systems Exam Vitals Vital Signs Date Temp Pulse Resp B/P (MAP) Pulse Ox O2 O2 Flow FiO2 Time Delivery Rate 03/04/19 94 18 176/85 Room Air 09:19 (115) 03/04/19 98.1 99 07:47 Intake and Output 03/03/19 03/03/19 03/04/19 1515:00 23:00 07:00 IntakeIntake Total 530 ml 600 ml OutputOutput Total 1300 ml BalanceBalance -770 ml 600 ml Exam Mixed partial and full thickness wounds to bilateral feet and ankle region with granular wound beds no probing to bone. Wound locations: Left hallux 1.5 x 1.5 x 0.1cm Left 3rd digit: 0.7 x 0.7 x 0.1cm Left medial malleolus 1.6 x 1.4 x 0.1cm Right plantar foot 1st MPJ region eschar formation Muscle weakness noted 3/5 muscle strength mycotic toe nails Results Result Diagram: 03/03/19 0859 Results 24hrs Laboratory Tests Test 03/03/19 12:39 03/03/19 17:12 03/03/19 20:26 03/04/19 08:13 Bedside Glucose 165 121 100 96 Medications Medication Current Medications IV Flush (NS 3 ml) 3 ml PER PROTOCOL IV Last administered on 03/03/19at 20:27; Admin Dose 3 ML; Start 02/06/19 at 05:30 Ondansetron HCl (Zofran Inj) 4 mg Q6H PRN IV NAUSEA/VOMITING; Start 02/06/19 at 05:30 Acetaminophen (Tylenol Tab) 650 mg Q6H PRN PO .PAIN 1-3 OR TEMP Last adminis tered on 02/06/19 21:57; Admin Dose 650 MG; Start 02/06/19 at 05:30 Acetaminophen/ Hydrocodone Bitart ([place] (5/325)) 1 tab Q6H PRN PO .MOD PAIN 4- 6 Last administered on 03/02/19 21:20; Admin Dose 1 TAB; Start 02/06/19 at 05:30 Morphine Sulfate (morphine) 2 mg Q4H PRN IV .SEVERE PAIN 7-10; Start 02/06/19 at 05:30 Docusate Sodium (Colace) 100 mg Q12H PRN PO .CONSTIPATION; Start 02/06/19 at 05:30 Magnesium Hydroxide (Milk Of Mag) 30 ml DAILY PRN PO .CONSTIPATION Last administered on 02/09/19 13:58; Admin Dose 30 ML; Start 02/06/19 at 05:30 Lorazepam (Ativan) 0.5 mg Q6H PRN IV ANXIETY; Start 02/06/19 at 05:30 Albuterol/ Ipratropium (Duoneb) 3 ml Q4H RESP THERAPY PRN HHN SHORTNESS OF BREATH; Start 02/06/19 at 05:30 Hydralazine HCl (Apresoline) 10 mg Q6H PRN IV ELEVATED BLOOD PRESSURE Last adm inistered on 03/04/19 08:01; Admin Dose 10 MG; Start 02/06/19 at 05:30 Clonidine (Catapres) 0.1 mg Q6H PRN PO ELEVATED SYSTOLIC BP Last administered on 02/18/19 13:40; Admin Dose 0.1 MG; Start 02/06/19 at 05:30 Nitroglycerin (Nitroglycerin (Sl Tab) 0.4 Mg) 1 tab Q5M PRN SL ANGINA; Start 02/06/19 at 05:30 Ascorbic Acid (Vitamin C) 500 mg DAILY PO Last administered on 02/10/19 08:25; Admin Dose 500 MG; Start 02/06/19 at 09:00 Gabapentin (Neurontin) 100 mg TID PO Last administered on 03/04/19 08:14; Admin Dose 100 MG; Start 02/06/19 at 09:00 Multivitamins Therapeutic (Theragran) 1 tab DAILY PO Last administered on 02/10/19 08:25; Admin Dose 1 TAB; Start 02/06/19 at 09:00 Miscellaneous Information Patients own medicat... BID@10,16 XX ; Start 02/06/19 at 16:00 Diagnostic Test (Pha) (Accu-Chek) 1 ea 02 XX ; Start 02/07/19 at 02:00 Insulin Aspart (Novolog Insulin Pen) NOVOLOG *MILD* ALGORITHM WITH MEALS BEDTIME SC Last administered on 02/26/19at 12:44; Admin Dose 3 UNIT; Start 02/06/19 at 18:00 Miscellaneous Information 1 ea NOTE XX ; Start 02/06/19 at 14:30 Glucose (Glutose) 15 gm Q15M PRN PO DECREASED GLUCOSE; Start 02/06/19 at 14:30 Glucose (Glutose) 22.5 gm Q15M PRN PO DECREASED GLUCOSE; Start 02/06/19 at 14:30 Dextrose (D50w Syringe) 25 ml Q15M PRN IV DECREASED GLUCOSE; Start 02/06/19 at 14:30 Dextrose (D50w Syringe) 50 ml Q15M PRN IV DECREASED GLUCOSE; Start 02/06/19 at 14:30 Glucagon (Glucagen) 1 mg Q15M PRN IM DECREASED GLUCOSE; Start 02/06/19 at 14:30 Glucose (Glutose) 15 gm Q15M PRN BUCCAL DECREASED GLUCOSE; Start 02/06/19 at 14:30 Collagenase (Santyl) 1 applic DAILY TOP Last administered on 03/03/19at 08:48; Admin Dose 1 APPLIC; Start 02/06/19 at 18:30 Collagenase (Santyl) 1 applic PRN PRN TOP WHEN SOILED; Start 02/06/19 at 18:30 Lisinopril (Zestril) 40 mg DAILY PO Last administered on 02/28/19at 08:16; Admin Dose 40 MG; Start 02/08/19 at 09:00 Metformin HCl (Glucophage) 1,000 mg WITH BREAKFAST DINNE PO Last administered on 03/04/19at 08:14; Admin Dose 1,000 MG; Start 02/07/19 at 18:00 Clotrimazole (Lotrimin Cr) 1 applic BID TOP Last administered on 03/03/19at 20:31 ; Admin Dose 1 APPLIC; Start 02/07/19 at 11:30 Sodium Hypochlorite (Dakins Diluted (/40)) 1 applic DAILY TP Last administered on 03/04/19 08:15; Admin Dose 1 APPLIC; Start 02/09/19 at 09:00 Nifedipine (Procardia Xl) 30 mg BID PO Last administered on 02/28/19 08:17; Admin Dose 30 MG; Start 02/11/19 at 15:00 Polyethylene Glycol (Miralax) 17 gm DAILY PO Last administered on 02/12/19at 12:40; Admin Dose 17 GM; Start 02/12/19 at 12:30 Famotidine (Pepcid) 20 mg DAILY PO Last administered on 03/03/19 08:47; Admin Dose 20 MG; Start 02/14/19 at 09:00 Metoprolol Tartrate (Lopressor) 100 mg BID PO Last administered on 02/28/19 08:17; Admin Dose 100 MG; Start 02/13/19 at 21:00 Aspirin (Halfprin) 81 mg DAILY PO ; Start 02/14/19 at 09:00 Lactobacillus Acidophilus/ Rhamnosus (Culturelle) 1 cap BID PO Last administered on 03/04/19 08:14; Admin Dose 1 CAP; Start 02/13/19 at 21:00 Enoxaparin Sodium (Lovenox) 40 mg DAILY SC Last administered on 03/03/19 08:46; Admin Dose 40 MG; Start 02/14/19 at 09:00 Nicotine (Nicoderm 14 Mg/ 24hr) 1 patch DAILY PRN TRANSDERM CONTROL WITHDRAWAL SYMPTOMS; Start 02/13/19 at 15:00 IV Flush (NS 10 ml) 10 ml PRN PRN IV IV PROTOCOL; Start 02/20/19 at 12:30 Vancomycin HCl (Vanco Iv Per Pharmacy) VANCOMYCIN PER PHARMACY PER PROTOCOL XX ; Start 02/27/19 at 11:00 Ceftriaxone Sodium 50 ml @ 100 mls/hr Q24H IVPB Last administered on 03/03/19 11:27; Admin Dose 100 MLS/HR; Start 02/27/19 at 11:00 Fluconazole (Diflucan) 100 mg DAILY PO Last administered on 03/04/19 08:15; Admin Dose 100 MG; Start 02/27/19 at 15:00 Vancomycin HCl 1.25 gm/Sodium Chloride 250 ml @ 83.333 mls/ hr Q24H IVPB Last administered on 7/1/19at 13:28; Admin Dose 83.333 MLS/HR; Start 03/01/19 at 13:00 Clonidine HCl (Catapres-Tts 2 Patch) 1 patch Q7D TRANSDERM Last administered on 03/03/19at 12:42; Admin Dose 1 PATCH; Start 03/03/19 at 12:00 Miscellaneous Information (*Rx Drug Level Order Reminder*) 1 1200 ONCE XX ; Start 03/04/19 at 12:00; Stop 03/04/19 at 12:01 Alteplase, Recombinant (Cathflo (Activase)) 2 mg MAY REPEAT X1 PRN CATHETER IF CATHETER REMAINS OCCULUDED Last administered on 03/04/19at 10:54; Admin Dose 2 MG; Start 03/04/19 at 08:00 JOSSELYN NINO DPM Mar 04, 2019 11:22
[2019-03-04] MEDS: CEFTRIAXONE 1 GM/50 ML (PMX) 50 ML IVPB SCH (11:40)
[2019-03-04] MEDS: VANCOMYCIN HCL 1.25 GM in SOD CHLORIDE 0.9% 250 ML IVPB SCH (12:49)
--- NOTE | 2019-03-04 13:12 | PN ---
Date/Time of Note Date/Time of Note DATE: 03/04/19 TIME: 13:12 Assessment/Plan VTE Prophylaxis Risk score (from Ns)>0 risk: 8 SCD applied (from Ns): No SCD contraindicated: patient refusal Pharmacological prophylaxis: LMWH Pharm contraindication: patient refusal Lines/Catheters [facility] PICC Line Central line still needed: Yes Urinary Cath still in place: Yes Reason Cath still needed: other (indicate) Assessment/Plan Hospital Course SUBJECTIVE: Patient refusing most of his medications. BP running high. OBJECTIVE: Physical Exam General: Adequately build 63 year-old male lying in bed in no apparent distress. HEENT: Normocephalic, atraumatic. Eyes: Anicteric sclerae, conjunctivae clear. ENT: Nasal septum midline, oral mucosa moist. Neck supple. Respiratory: Bilaterally diminished. Breath sounds. No use of accessory muscles of respiration. No adventitious breath sounds. Cardiovascular: S1, S2 heard. No murmurs or gallops. Abdomen: Soft, nontender, and nondistended. Bowel sounds positive in all 4 quadrants. Genitourinary: Deferred. Extremities: Bilateral lower extremity contracted with bilateral foot wounds Neurologic: The patient is awake, alert, and oriented. Labs & Vitals per chart ASSESSMENT & PLAN 63-year-old male who is wheelchair-bound, past medical history of hypertension, sacral decubitus ulcers, diabetes, osteomyelitis, smoking history, homelessness, anemia, and neurogenic bladder, who presented with worsening diabetic foot ulcers on his bilateral feet. 1. Osteomyelitis of the left fifth metatarsal (01/20/2019). Incompletely treated with IV antibiotics as per recommendations because of noncompliance. S/P Daptomycin/gentamicin until 02/23/2019, then changed to IV Vanco plus Rocephin 03/22/2019 to complete the course of antibiotics. ID following. 2. Chronic bilateral lower extremity ulcers. Continue local wound care. Status post podiatry evaluation. 3. Multiple bilateral gluteal wounds. Continue antimicrobials as per ID. Status post debridement on 02/07/2019. Cultures showing polymicrobial's including MRSA and VRE. 4. Hypertension. Continue antihypertensives. 5. Diabetes mellitus. Hemoglobin A1c 6.5. Continue metformin. Refusing insulin. 6. Peripheral neuropathy. Continue gabapentin. 7. Normocytic anemia. Probably anemia of chronic disease. 8. Nicotine use. Cessation advised. 9. Debility with contractures. Wheelchair-bound. Physical therapy. 10. 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 11. Chronic neurogenic bladder. Chanel cath in place. 12. Noncompliance with medications and medical management. Counseling. 13. Fluids, electrolytes, and nutrition. Carbohydrate controlled diet. 14. DVT prophylaxis. Subcutaneous Lovenox (patient refusing). 15. Plan. Continue antimicrobials as per ID. Continue local wound care. Trial of clonidine patch. The patient has no isolation and is stable to be discharged with oral antibiotics to complete the rest of the treatment. The patient was seen in collaboration with Dr. Oleary. Result Diagram: 03/03/19 0859 Results 24hrs Laboratory Tests Test 03/03/19 17:12 03/03/19 20:26 03/04/19 08:13 03/04/19 12:01 Bedside Glucose 121 100 96 Vancomycin Level Trough 22.6 *H Test 03/04/19 12:45 Bedside Glucose 166 Exam/Review of Systems Exam Vitals Vital Signs Date Temp Pulse Resp B/P (MAP) Pulse Ox O2 O2 Flow FiO2 Time Delivery Rate 03/04/19 94 18 176/85 Room Air 09:19 (115) 03/04/19 98.1 99 07:47 Intake and Output 03/03/19 03/03/19 03/04/19 1515:00 23:00 07:00 IntakeIntake Total 530 ml 600 ml OutputOutput Total 1300 ml BalanceBalance -770 ml 600 ml Results Results 24hrs Laboratory Tests Test 03/03/19 17:12 03/03/19 20:26 03/04/19 08:13 03/04/19 12:01 Bedside Glucose 121 100 96 Vancomycin Level Trough 22.6 *H Test 03/04/19 12:45 Bedside Glucose 166 Medications Medication Current Medications IV Flush (NS 3 ml) 3 ml PER PROTOCOL IV Last administered on 03/03/19at 20:27; Admin Dose 3 ML; Start 02/06/19 at 05:30 Ondansetron HCl (Zofran Inj) 4 mg Q6H PRN IV NAUSEA/VOMITING; Start 02/06/19 at 05:30 Acetaminophen (Tylenol Tab) 650 mg Q6H PRN PO .PAIN 1-3 OR TEMP Last administered on 02/06/19at 21:57; Admin Dose 650 MG; Start 02/06/19 at 05:30 Acetaminophen/ Hydrocodone Bitart ([place] (5/325)) 1 tab Q6H PRN PO .MOD PAIN 4- 6 Last administered on 03/02/19 21:20; Admin Dose 1 TAB; Start 02/06/19 at 05:30 Morphine Sulfate (morphine) 2 mg Q4H PRN IV .SEVERE PAIN 7-10; Start 02/06/19 at 05:30 Docusate Sodium (Colace) 100 mg Q12H PRN PO .CONSTIPATION; Start 02/06/19 at 05:30 Magnesium Hydroxide (Milk Of Mag) 30 ml DAILY PRN PO .CONSTIPATION Last administered on 02/09/19 13:58; Admin Dose 30 ML; Start 02/06/19 at 05:30 Lorazepam (Ativan) 0.5 mg Q6H PRN IV ANXIETY; Start 02/06/19 at 05:30 Albuterol/ Ipratropium (Duoneb) 3 ml Q4H RESP THERAPY PRN HHN SHORTNESS OF BREATH; Start 02/06/19 at 05:30 Hydralazine HCl (Apresoline) 10 mg Q6H PRN IV ELEVATED BLOOD PRESSURE Last administered on 03/04/19 08:01; Admin Dose 10 MG; Start 02/06/19 at 05:30 Clonidine (Catapres) 0.1 mg Q6H PRN PO ELEVATED SYSTOLIC BP Last administered on 02/18/19at 13:40; Admin Dose 0.1 MG; Start 02/06/19 at 05:30 Nitroglycerin (Nitroglycerin (Sl Tab) 0.4 Mg) 1 tab Q5M PRN SL ANGINA; Start 02/06/19 at 05:30 Ascorbic Acid (Vitamin C) 500 mg DAILY PO Last administered on 02/10/19 08:25; Admin Dose 500 MG; Start 02/06/19 at 09:00 Gabapentin (Neurontin) 100 mg TID PO Last administered on 03/04/19 12:49; Admin Dose 100 MG; Start 02/06/19 at 09:00 Multivitamins Therapeutic (Theragran) 1 tab DAILY PO Last administered on 02/10/19 08:25; Admin Dose 1 TAB; Start 02/06/19 at 09:00 Miscellaneous Information Patients own medicat... BID@10,16 XX ; Start 02/06/19 at 16:00 Diagnostic Test (Pha) (Accu-Chek) 1 ea 02 XX ; Start 02/07/19 at 02:00 Insulin Aspart (Novolog Insulin Pen) NOVOLOG *MILD* ALGORITHM WITH MEALS BEDTIME SC Last administered on 02/26/19at 12:44; Admin Dose 3 UNIT; Start 02/06/19 at 18:00 Miscellaneous Information 1 ea NOTE XX ; Start 02/06/19 at 14:30 Glucose (Glutose) 15 gm Q15M PRN PO DECREASED GLUCOSE; Start 02/06/19 at 14:30 Glucose (Glutose) 22.5 gm Q15M PRN PO DECREASED GLUCOSE; Start 02/06/19 at 14:30 Dextrose (D50w Syringe) 25 ml Q15M PRN IV DECREASED GLUCOSE; Start 02/06/19 at 1 4:30 Dextrose (D50w Syringe) 50 ml Q15M PRN IV DECREASED GLUCOSE; Start 02/06/19 at 14:30 Glucagon (Glucagen) 1 mg Q15M PRN IM DECREASED GLUCOSE; Start 02/06/19 at 14:30 Glucose (Glutose) 15 gm Q15M PRN BUCCAL DECREASED GLUCOSE; Start 02/06/19 at 14:30 Collagenase (Santyl) 1 applic DAILY TOP Last administered on 03/03/19at 08:48; Admin Dose 1 APPLIC; Start 02/06/19 at 18:30 Collagenase (Santyl) 1 applic PRN PRN TOP WHEN SOILED; Start 02/06/19 at 18:30 Lisinopril (Zestril) 40 mg DAILY PO Last administered on 02/28/19at 08:16; Admin Dose 40 MG; Start 02/08/19 at 09:00 Metformin HCl (Glucophage) 1,000 mg WITH BREAKFAST DINNE PO Last administered on 03/04/19at 08:14; Admin Dose 1,000 MG; Start 02/07/19 at 18:00 Clotrimazole (Lotrimin Cr) 1 applic BID TOP Last administered on 03/03/19at 20:31; Admin Dose 1 APPLIC; Start 02/07/19 at 11:30 Sodium Hypochlorite (Dakins Diluted (40)) 1 applic DAILY TP Last administered on 03/04/19at 08:15; Admin Dose 1 APPLIC; Start 02/09/19 at 09:00 Nifedipine (Procardia Xl) 30 mg BID PO Last administered on 02/28/19 08:17; Admin Dose 30 MG; Start 02/11/19 at 15:00 Polyethylene Glycol (Miralax) 17 gm DAILY PO Last administered on 02/12/19at 12:40; Admin Dose 17 GM; Start 02/12/19 at 12:30 Famotidine (Pepcid) 20 mg DAILY PO Last administered on 03/03/19 08:47; Admin Dose 20 MG; Start 02/14/19 at 09:00 Metoprolol Tartrate (Lopressor) 100 mg BID PO Last administered on 02/28/19 08:17; Admin Dose 100 MG; Start 02/13/19 at 21:00 Aspirin (Halfprin) 81 mg DAILY PO ; Start 02/14/19 at 09:00 Lactobacillus Acidophilus/ Rhamnosus (Culturelle) 1 cap BID PO Last administered on 03/04/19 08:14; Admin Dose 1 CAP; Start 02/13/19 at 21:00 Enoxaparin Sodium (Lovenox) 40 mg DAILY SC Last administered on 03/03/19 08:46; Admin Dose 40 MG; Start 02/14/19 at 09:00 Nicotine (Nicoderm 14 Mg/ 24hr) 1 patch DAILY PRN TRANSDERM CONTROL WITHDRAWAL SYMPTOMS; Start 02/13/19 at 15:00 IV Flush (NS 10 ml) 10 ml PRN PRN IV IV PROTOCOL; Start 02/20/19 at 12:30 Vancomycin HCl (Vanco Iv Per Pharmacy) VANCOMYCIN PER PHARMACY PER PROTOCOL XX ; Start 02/27/19 at 11:00 Ceftriaxone Sodium 50 ml @ 100 mls/hr Q24H IVPB Last administered on 03/04/19at 11:40; Admin Dose 100 MLS/HR; Start 02/27/19 at 11:00 Fluconazole (Diflucan) 100 mg DAILY PO Last administered on 03/04/19 08:15; Admin Dose 100 MG; Start 02/27/19 at 15:00 Vancomycin HCl 1.25 gm/Sodium Chloride 250 ml @ 83.333 mls/ hr Q24H IVPB Last administered on 03/03/19 13:28; Admin Dose 83.333 MLS/HR; Start 03/01/19 at 13:00 Clonidine HCl (Catapres-Tts 2 Patch) 1 patch Q7D TRANSDERM Last administered on 03/03/19at 12:42; Admin Dose 1 PATCH; Start 03/03/19 at 12:00 Alteplase, Recombinant (Cathflo (Activase)) 2 mg MAY REPEAT X1 PRN CATHETER IF CATHETER REMAINS OCCULUDED Last administered on 03/04/19at 10:54; Admin Dose 2 MG; Start 03/04/19 at 08:00 EV HARO NP Mar 04, 2019 13:12
[2019-03-04 14:18] VITALS: BP 194/96; PULSE 83; RESP 16
[2019-03-04 14:32] VITALS: BP 154/93; PULSE 75; RESP 16
[2019-03-04] MEDS: HYDROCODONE/APAP (5/325) TAB PO PRN (17:07)
[2019-03-04 19:47] VITALS: BP 181/91; PULSE 88; RESP 18
[2019-03-05] MEDS: VANCOMYCIN HCL 1.25 GM in SOD CHLORIDE 0.9% 250 ML IVPB SCH (01:33)
[2019-03-05 01:45] VITALS: BP 174/87; PULSE 81; RESP 17
[2019-03-05] MEDS: ACCU-CHEK XX SCH (02:00)
[2019-03-05 07:26] VITALS: BP 179/86; PULSE 87; RESP 14
[2019-03-05] MEDS: INSULIN ASPART [NOVOLOG] 3 ML PEN SC SCH ×4 (08:00→21:00)
[2019-03-05] MEDS: COLLAGENASE 5 GM (UD JAR) TOP SCH (08:47)
[2019-03-05] MEDS: GABAPENTIN 100 MG CAP PO SCH ×3 (08:48→22:39)
[2019-03-05] MEDS: LACTOBACILLUS RHAMNOSUS CAP PO SCH ×2 (08:48→21:00)
[2019-03-05] MEDS: DAKINS 0.0125%(1/40) 473 ML SOLUTION TP SCH (08:48)
[2019-03-05] MEDS: CLOTRIMAZOLE 1% 30 GM CR TOP SCH ×2 (08:48→21:00)
[2019-03-05] MEDS: FLUCONAZOLE 100 MG TAB PO SCH (08:49)
[2019-03-05] MEDS: hydrALAzine 20 MG INJ IV PRN ×2 (08:49→19:58)
[2019-03-05] MEDS: metFORMIN 500 MG TAB PO SCH ×2 (08:49→17:14)
[2019-03-05] MEDS: FAMOTIDINE 20 MG TAB PO SCH (08:49)
[2019-03-05] MEDS: METOPROLOL 100 MG TAB PO SCH ×2 (08:58→21:00)
[2019-03-05] MEDS: ASPIRIN (EC) 81 MG TAB PO SCH (08:58)
[2019-03-05] MEDS: MULTIVITAMINS THERAPEUTIC TAB PO SCH (08:59)
[2019-03-05] MEDS: ASCORBIC ACID 500 MG TAB PO SCH (08:59)
[2019-03-05] MEDS: POLYETHYLENE GLYCOL 17 GM PACKET PO SCH (08:59)
[2019-03-05] MEDS: NIFEdipine (XL) 30 MG TAB PO SCH ×2 (08:59→21:00)
[2019-03-05] MEDS: LISINOPRIL 20 MG TAB PO SCH (08:59)
[2019-03-05] MEDS: ENOXAPARIN 40 MG/0.4 ML SYG SC SCH (09:00)
--- NOTE | 2019-03-05 10:54 | CONS ---
Assessment/Plan Assessment/Plan Hospital Course (Demo Recall) No acute events looks comfortable, no fevers overnight Left and right buttock wounds grew MRSA, Pseudomonas, Enterococcus, Corynebacterium group JK Blood culture on admission grew staph species 1 out of 2 sets Antimicrobials: Vanco Rocephin fluconazole ALLERGIES: HE IS NOT ALLERGIC TO ANY ANTIBIOTICS. PHYSICAL EXAMINATION: GENERAL: Well-developed elderly -[place] man who is in no distress. HEENT: Head is atraumatic, normocephalic. Sclerae are anicteric. Buccal mucosa is dry. NECK: Supple. CHEST: Rise symmetrical. Breath sounds diminished to bases. HEART: S1, S2. ABDOMEN: Soft. Bowel tones are present. EXTREMITIES: With bilateral lower extremities dressing intact. Assessment: 1. Bilateral lower extremities diabetic ulcerations 2. Left foot osteomyelitis 3. Diabetes with diabetic neuropathy 4. Bilateral buttocks ulcerations, status post debridement 5. Coag negative staph bacteremia consistent with contaminant 6. Noncompliance Plan: Remains stable, ok dc on PO Bactrim when he is ready to leave to complete treatment for MRSA OM, last dose 03/22 Consultation Date/Type/Reason Admit Date/Time Feb 06, 2019 at 03:18 Initial Consult Date 02/07/19 Type of Consult id Requesting Provider: MASOUD SOLANO DPM Date/Time of Note DATE: 03/05/19 TIME: 10:52 Exam/Review of Systems Exam Vitals Vital Signs Date Temp Pulse Resp B/P (MAP) Pulse Ox O2 O2 Flow FiO2 Time Delivery Rate 03/05/19 98.1 87 14 179/86 99 Room Air 07:26 (117) Intake and Output 03/04/19 03/04/19 03/05/19 1515:00 23:00 07:00 IntakeIntake Total 50 ml OutputOutput Total 1300 ml 850 ml BalanceBalance -1250 ml -850 ml Results Result Diagram: 03/05/19 0959 Results 24hrs Laboratory Tests Test 03/04/19 12:01 03/04/19 12:45 03/04/19 17:04 03/04/19 21:09 Vancomycin Level Trough 22.6 *H Bedside Glucose 166 116 116 Test 03/05/19 08:38 03/05/19 09:59 Bedside Glucose 126 Blood Urea Nitrogen 38 H Creatinine 1.21 Medications Medication Current Medications IV Flush (NS 3 ml) 3 ml PER PROTOCOL IV Last administered on 03/03/19 20:27; Admin Dose 3 ML; Start 02/06/19 at 05:30 Ondansetron HCl (Zofran Inj) 4 mg Q6H PRN IV NAUSEA/VOMITING; Start 02/06/19 at 05:30 Acetaminophen (Tylenol Tab) 650 mg Q6H PRN PO .PAIN 1-3 OR TEMP Last administered on 02/06/19 21:57; Admin Dose 650 MG; Start 02/06/19 at 05:30 Acetaminophen/ Hydrocodone Bitart ([place] (5/325)) 1 tab Q6H PRN PO .MOD PAIN 4- 6 Last administered on 03/04/19 17:07; Admin Dose 1 TAB; Start 02/06/19 at 05:30 Morphine Sulfate (morphine) 2 mg Q4H PRN IV .SEVERE PAIN 7-10 Last administered on 03/05/19 08:46; Admin Dose 2 MG; Start 02/06/19 at 05:30 Docusate Sodium (Colace) 100 mg Q12H PRN PO .CONSTIPATION; Start 02/06/19 at 05:30 Magnesium Hydroxide (Milk Of Mag) 30 ml DAILY PRN PO .CONSTIPATION Last administered on 02/09/19 13:58; Admin Dose 30 ML; Start 02/06/19 at 05:30 Lorazepam (Ativan) 0.5 mg Q6H PRN IV ANXIETY; Start 02/06/19 at 05:30 Albuterol/ Ipratropium (Duoneb) 3 ml Q4H RESP THERAPY PRN HHN SHORTNESS OF BREATH; Start 02/06/19 at 05:30 Hydralazine HCl (Apresoline) 10 mg Q6H PRN IV ELEVATED BLOOD PRESSURE Last administered on 03/05/19 08:49; Admin Dose 10 MG; Start 02/06/19 at 05:30 Clonidine (Catapres) 0.1 mg Q6H PRN PO ELEVATED SYSTOLIC BP Last administered on 02/18/19 13:40; Admin Dose 0.1 MG; Start 02/06/19 at 05:30 Nitroglycerin (Nitroglycerin (Sl Tab) 0.4 Mg) 1 tab Q5M PRN SL ANGINA; Start 02/06/19 at 05:30 Ascorbic Acid (Vitamin C) 500 mg DAILY PO Last administered on 02/10/19 08:25; Admin Dose 500 MG; Start 02/06/19 at 09:00 Gabapentin (Neurontin) 100 mg TID PO Last administered on 03/05/19at 08:48; Admin Dose 100 MG; Start 02/06/19 at 09:00 Multivitamins Therapeutic (Theragran) 1 tab DAILY PO Last administered on 02/10/19at 08:25; Admin Dose 1 TAB; Start 02/06/19 at 09:00 Miscellaneous Information Patients own medicat... BID@ XX ; Start 02/06/19 at 16:00 Diagnostic Test (Pha) (Accu-Chek) 1 ea 02 XX ; Start 02/07/19 at 02:00 Insulin Aspart (Novolog Insulin Pen) NOVOLOG *MILD* ALGORITHM WITH MEALS BEDTIME SC Last administered on 02/26/19at 12:44; Admin Dose 3 UNIT; Start 02/06/19 at 18:00 Miscellaneous Information 1 ea NOTE XX ; Start 02/06/19 at 14:30 Glucose (Glutose) 15 gm Q15M PRN PO DECREASED GLUCOSE; Start 02/06/19 at 14:30 Glucose (Glutose) 22.5 gm Q15M PRN PO DECREASED GLUCOSE; Start 02/06/19 at 14:30 Dextrose (D50w Syringe) 25 ml Q15M PRN IV DECREASED GLUCOSE; Start 02/06/19 at 14:30 Dextrose (D50w Syringe) 50 ml Q15M PRN IV DECREASED GLUCOSE; Start 02/06/19 at 14:30 Glucagon (Glucagen) 1 mg Q15M PRN IM DECREASED GLUCOSE; Start 02/06/19 at 14:30 Glucose (Glutose) 15 gm Q15M PRN BUCCAL DECREASED GLUCOSE; Start 02/06/19 at 14:30 Collagenase (Santyl) 1 applic DAILY TOP Last administered on 03/05/19at 08:47; Admin Dose 1 APPLIC; Start 02/06/19 at 18:30 Collagenase (Santyl) 1 applic PRN PRN TOP WHEN SOILED; Start 02/06/19 at 18:30 Lisinopril (Zestril) 40 mg DAILY PO Last administered on 02/28/19at 08:16; Admin Dose 40 MG; Start 02/08/19 at 09:00 Metformin HCl (Glucophage) 1,000 mg WITH BREAKFAST DINNE PO Last administered on 03/05/19 08:49; Admin Dose 1,000 MG; Start 02/07/19 at 18:00 Clotrimazole (Lotrimin Cr) 1 applic BID TOP Last administered on 03/05/19 08:48; Admin Dose 1 APPLIC; Start 02/07/19 at 11:30 Sodium Hypochlorite (Dakins Diluted (40)) 1 applic DAILY TP Last administered on 03/05/19 08:48; Admin Dose 1 APPLIC; Start 02/09/19 at 09:00 Nifedipine (Procardia Xl) 30 mg BID PO Last administered on 02/28/19 08:17; Admin Dose 30 MG; Start 02/11/19 at 15:00 Polyethylene Glycol (Miralax) 17 gm DAILY PO Last administered on 02/12/19 12:40; Admin Dose 17 GM; Start 02/12/19 at 12:30 Famotidine (Pepcid) 20 mg DAILY PO Last administered on 03/05/19 08:49; Admin Dose 20 MG; Start 02/14/19 at 09:00 Metoprolol Tartrate (Lopressor) 100 mg BID PO Last administered on 02/28/19 08:17; Admin Dose 100 MG; Start 02/13/19 at 21:00 Aspirin (Halfprin) 81 mg DAILY PO ; Start 02/14/19 at 09:00 Lactobacillus Acidophilus/ Rhamnosus (Culturelle) 1 cap BID PO Last administere d on 03/05/19 08:48; Admin Dose 1 CAP; Start 02/13/19 at 21:00 Enoxaparin Sodium (Lovenox) 40 mg DAILY SC Last administered on 03/03/19 08:46; Admin Dose 40 MG; Start 02/14/19 at 09:00 Nicotine (Nicoderm 14 Mg/ 24hr) 1 patch DAILY PRN TRANSDERM CONTROL WITHDRAWAL SYMPTOMS; Start 02/13/19 at 15:00 IV Flush (NS 10 ml) 10 ml PRN PRN IV IV PROTOCOL; Start 02/20/19 at 12:30 Vancomycin HCl (Vanco Iv Per Pharmacy) VANCOMYCIN PER PHARMACY PER PROTOCOL XX ; Start 02/27/19 at 11:00 Ceftriaxone Sodium 50 ml @ 100 mls/hr Q24H IVPB Last administered on 03/04/19at 11:40; Admin Dose 100 MLS/HR; Start 02/27/19 at 11:00 Fluconazole (Diflucan) 100 mg DAILY PO Last administered on 03/05/19at 08:49; Admin Dose 100 MG; Start 02/27/19 at 15:00 Clonidine HCl (Catapres-Tts 2 Patch) 1 patch Q7D TRANSDERM Last administered on 03/03/19at 12:42; Admin Dose 1 PATCH; Start 03/03/19 at 12:00 Alteplase, Recombinant (Cathflo (Activase)) 2 mg MAY REPEAT X1 PRN CATHETER IF CATHETER REMAINS OCCULUDED Last administered on 03/04/19at 10:54; Admin Dose 2 MG; Start 03/04/19 at 08:00 Vancomycin HCl 1.25 gm/Sodium Chloride 250 ml @ 83.333 mls/ hr Q36H IVPB Last administered on 03/05/19at 01:33; Admin Dose 83.333 MLS/HR; Start 03/05/19 at 01:00 CHANTALE RAMIREZ [employer]EL[employer] Mar 05, 2019 10:54
[2019-03-05] MEDS: CEFTRIAXONE 1 GM/50 ML (PMX) 50 ML IVPB SCH (11:50)
--- NOTE | 2019-03-05 12:41 | PN ---
Date/Time of Note Date/Time of Note DATE: 03/05/19 TIME: 12:39 Assessment/Plan Lines/Catheters IV Catheter Type (from Nrs): PICC Line Chanel in Place (from Nrs): Yes Assessment/Plan Chief Complaint/Hosp Course 1. Multiple wounds s/p debridement of bilat buttock 02/07/19 bilateral buttock: Continuing to heal well; repeat wound cultures noted -further debridement prn -Continue local care> same tx -frequent turning and off-loading -low air loss mattress -vitamin c -optimize nutrition -bilateral LE wounds: per podiatry -dc ok from surgical standpoint 2. Osteomyelitis BLE -Antibiotics per ID 3. Hypertension -nutrition and medication management 4. Diabetes: hga1c: 6.5 -nutrition and medication management 5. Diabetic neuropathy -safety precs (ensure no lines/tubes, etc on skin) -diabetes optimization 6. Hypochromic anemia -monitor and tx as needed 7. Depression -psych optimization 8. 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 Intermittent noncompliance w meds -supportive Thank you. Patient seen and examined in collaboration with Dr. Kj Moran Subjective 24 Hr Interval Summary No acute events. Feels okay. No fevers, chills, sob, congested cough, cp, palpitations, koch, dizziness, nausea, vomiting, diarrhea, dysuria, wound drainage or odor. Exam/Review of Systems Vital Signs Vitals Vital Signs Date Temp Pulse Resp B/P (MAP) Pulse Ox O2 O2 Flow FiO2 Time Delivery Rate 03/05/19 98.1 87 14 179/86 99 Room Air 07:26 (117) Intake and Output 03/04/19 03/04/19 03/05/19 1515:00 23:00 07:00 IntakeIntake Total 50 ml OutputOutput Total 1300 ml 850 ml BalanceBalance -1250 ml -850 ml Exam Free Text/Dictation Constitutional: alert, oriented, well developed Psych: nl mood/affect, labile Head: normocephalic, atraumatic Eyes: nl conjunctiva, EOMI, nl lids, nl sclera ENMT: nl external ears & nose, nl lips & teeth, mucosa pink and moist Neck: supple, non-tender; No jvd Respiratory: normal air movement; No congested cough Cardiovascular: regular rate and rhythm, nl pulses; No edema Gastrointestinal: soft, non-tender Genitourinary - Male: nl penis, nl scrotum Musculoskeletal: nl extremities to inspection, other (contracted BLE) Extremities: normal pulses; No pitting pedal edema Neurological: nl mental status, nl speech, nl strength Skin: other (multiple wounds: bilat buttock: clean, healing); BLE: wounds: dry No rash or lesions Lymph: No nl lymph nodes Results Result Diagram: 03/05/19 0959 CALLY NOEL NP Mar 05, 2019 12:41
[2019-03-05 14:37] VITALS: BP 165/86; PULSE 82; RESP 16
--- NOTE | 2019-03-05 19:07 | PN ---
Date/Time of Note Date/Time of Note DATE: 03/05/19 TIME: 19:05 Assessment/Plan VTE Prophylaxis Risk score (from Nsg)>0 risk: 8 SCD applied (from Nsg): No SCD contraindicated: low risk/ambulating Pharmacological prophylaxis: LMWH Lines/Catheters IV Catheter Type (from Nrsg): PICC Line Central line still needed: Yes Urinary Cath still in place: Yes Reason Cath still needed: urinary retention Assessment/Plan Hospital Course Assessment and plan 1. Bilateral lwr ext ulcers, stable cont local wound care/offload 2. Chr bilateral buttock ulcer sp debridement, offload 3. Chr debility/ wheelchair-bound status, prognosis guarded 4. Ftt/ homeless, needs placement. SNF needs wound care instructions. Antibiotic instructions are below. 5. Type 2 diabetes; nonadherent to insulin coverage scale 6. Metabolic syndrome 7. Hypertension not at goal; nonadherent to therapy. High risk of stroke d/w Silver. 8. Tobacco abuse, counseling/ patch 9. COPD? 10. Psychosis, not otherwise specified 11. Chr neurogenic bladder, probably diabetic associated, cont straight cath as needed 12. Chr OM last mnth: Daptomycin/ Gentamicin [2 wks/ till 02/23]. then change to IV Vanco/ Rocephin till 03/22 to complete course for OM. 13. Anemia 14. Vitamin D def 10. Nonadherence; attempted counseling. High risk of stroke 16. Onychomycosis S: 02/13 events noted 02/14 refusing medications for blood pressure etc. awaiting SNF approval 03/05 still refusing blood pressure and diabetic care. I discussed risk of stroke O: Bp elevated PE No pallor droop Regular no mrg Clear Bs present nt nd no RRG Hypotonia, contractures. ~diabetic neuropathy. wounds dressed Result Diagram: 03/05/19 0959 Results 24hrs Laboratory Tests Test 03/04/19 21:09 03/05/19 08:38 03/05/19 09:59 03/05/19 12:36 Bedside Glucose 116 126 181 Blood Urea Nitrogen 38 H Creatinine 1.21 Test 03/05/19 17:13 Bedside Glucose 115 Exam/Review of Systems Exam Vitals Vital Signs Date Temp Pulse Resp B/P (MAP) Pulse Ox O2 O2 Flow FiO2 Time Delivery Rate 03/05/19 98.2 82 16 165/86 100 Room Air 14:37 (112) Intake and Output 03/04/19 03/04/19 03/05/19 1515:00 23:00 07:00 IntakeIntake Total 50 ml OutputOutput Total 1300 ml 850 ml BalanceBalance -1250 ml -850 ml Results Results 24hrs Laboratory Tests Test 03/04/19 21:09 03/05/19 08:38 03/05/19 09:59 03/05/19 12:36 Bedside Glucose 116 126 181 Blood Urea Nitrogen 38 H Creatinine 1.21 Test 03/05/19 17:13 Bedside Glucose 115 Medications Medication Current Medications IV Flush (NS 3 ml) 3 ml PER PROTOCOL IV Last administered on 03/03/19 20:27; Admin Dose 3 ML; Start 02/06/19 at 05:30 Ondansetron HCl (Zofran Inj) 4 mg Q6H PRN IV NAUSEA/VOMITING; Start 02/06/19 at 05:30 Acetaminophen (Tylenol Tab) 650 mg Q6H PRN PO .PAIN 1-3 OR TEMP Last administered on 02/06/19at 21:57; Admin Dose 650 MG; Start 02/06/19 at 05:30 Acetaminophen/ Hydrocodone Bitart ([place] (5/325)) 1 tab Q6H PRN PO .MOD PAIN 4- 6 Last administered on 03/04/19at 17:07; Admin Dose 1 TAB; Start 02/06/19 at 05:30 Morphine Sulfate (morphine) 2 mg Q4H PRN IV .SEVERE PAIN 7-10 Last administered on 03/05/19 08:46; Admin Dose 2 MG; Start 02/06/19 at 05:30 Docusate Sodium (Colace) 100 mg Q12H PRN PO .CONSTIPATION; Start 02/06/19 at 05:30 Magnesium Hydroxide (Milk Of Mag) 30 ml DAILY PRN PO .CONSTIPATION Last admin istered on 02/09/19at 13:58; Admin Dose 30 ML; Start 02/06/19 at 05:30 Lorazepam (Ativan) 0.5 mg Q6H PRN IV ANXIETY; Start 02/06/19 at 05:30 Albuterol/ Ipratropium (Duoneb) 3 ml Q4H RESP THERAPY PRN HHN SHORTNESS OF BREATH; Start 02/06/19 at 05:30 Hydralazine HCl (Apresoline) 10 mg Q6H PRN IV ELEVATED BLOOD PRESSURE Last administered on 03/05/19 08:49; Admin Dose 10 MG; Start 02/06/19 at 05:30 Clonidine (Catapres) 0.1 mg Q6H PRN PO ELEVATED SYSTOLIC BP Last administered on 02/18/19at 13:40; Admin Dose 0.1 MG; Start 02/06/19 at 05:30 Nitroglycerin (Nitroglycerin (Sl Tab) 0.4 Mg) 1 tab Q5M PRN SL ANGINA; Start 02/06/19 at 05:30 Ascorbic Acid (Vitamin C) 500 mg DAILY PO Last administered on 02/10/19at 08:25; Admin Dose 500 MG; Start 02/06/19 at 09:00 Gabapentin (Neurontin) 100 mg TID PO Last administered on 03/05/19at 12:33; Admin Dose 100 MG; Start 02/06/19 at 09:00 Multivitamins Therapeutic (Theragran) 1 tab DAILY PO Last administered on 02/10/19at 08:25; Admin Dose 1 TAB; Start 02/06/19 at 09:00 Miscellaneous Information Patients own medicat... BID@10,16 XX ; Start 02/06/19 at 16:00 Diagnostic Test (Pha) (Accu-Chek) 1 ea 02 XX ; Start 02/07/19 at 02:00 Insulin Aspart (Novolog Insulin Pen) NOVOLOG *MILD* ALGORITHM WITH MEALS BEDTIME SC Last administered on 02/26/19at 12:44; Admin Dose 3 UNIT; Start 02/06/19 at 18:00 Miscellaneous Information 1 ea NOTE XX ; Start 02/06/19 at 14:30 Glucose (Glutose) 15 gm Q15M PRN PO DECREASED GLUCOSE; Start 02/06/19 at 14:30 Glucose (Glutose) 22.5 gm Q15M PRN PO DECREASED GLUCOSE; Start 02/06/19 at 14:30 Dextrose (D50w Syringe) 25 ml Q15M PRN IV DECREASED GLUCOSE; Start 02/06/19 at 14:30 Dextrose (D50w Syringe) 50 ml Q15M PRN IV DECREASED GLUCOSE; Start 02/06/19 at 14:30 Glucagon (Glucagen) 1 mg Q15M PRN IM DECREASED GLUCOSE; Start 02/06/19 at 14:30 Glucose (Glutose) 15 gm Q15M PRN BUCCAL DECREASED GLUCOSE; Start 02/06/19 at 14:30 Collagenase (Santyl) 1 applic DAILY TOP Last administered on 03/05/19 08:47; Admin Dose 1 APPLIC; Start 02/06/19 at 18:30 Collagenase (Santyl) 1 applic PRN PRN TOP WHEN SOILED; Start 02/06/19 at 18:30 Lisinopril (Zestril) 40 mg DAILY PO Last administered on 02/28/19 08:16; Admin Dose 40 MG; Start 02/08/19 at 09:00 Metformin HCl (Glucophage) 1,000 mg WITH BREAKFAST DINNE PO Last administered on 03/05/19 17:14; Admin Dose 1,000 MG; Start 02/07/19 at 18:00 Clotrimazole (Lotrimin Cr) 1 applic BID TOP Last administered on 03/05/19 08:48; Admin Dose 1 APPLIC; Start 02/07/19 at 11:30 Sodium Hypochlorite (Dakins Diluted (1/40)) 1 applic DAILY TP Last administered on 03/05/19 08:48; Admin Dose 1 APPLIC; Start 02/09/19 at 09:00 Nifedipine (Procardia Xl) 30 mg BID PO Last administered on 02/28/19 08:17; Admin Dose 30 MG; Start 02/11/19 at 15:00 Polyethylene Glycol (Miralax) 17 gm DAILY PO Last administered on 02/12/19at 12:40; Admin Dose 17 GM; Start 02/12/19 at 12:30 Famotidine (Pepcid) 20 mg DAILY PO Last administered on 03/05/19 08:49; Admin Dose 20 MG; Start 02/14/19 at 09:00 Metoprolol Tartrate (Lopressor) 100 mg BID PO Last administered on 02/28/19 08:17; Admin Dose 100 MG; Start 02/13/19 at 21:00 Aspirin (Halfprin) 81 mg DAILY PO ; Start 02/14/19 at 09:00 Lactobacillus Acidophilus/ Rhamnosus (Culturelle) 1 cap BID PO Last administered on 03/05/19 08:48; Admin Dose 1 CAP; Start 02/13/19 at 21:00 Enoxaparin Sodium (Lovenox) 40 mg DAILY SC Last administered on 03/03/19at 08:46; Admin Dose 40 MG; Start 02/14/19 at 09:00 Nicotine (Nicoderm 14 Mg/ 24hr) 1 patch DAILY PRN TRANSDERM CONTROL WITHDRAWAL SYMPTOMS; Start 02/13/19 at 15:00 IV Flush (NS 10 ml) 10 ml PRN PRN IV IV PROTOCOL; Start 02/20/19 at 12:30 Vancomycin HCl (Vanco Iv Per Pharmacy) VANCOMYCIN PER PHARMACY PER PROTOCOL XX ; Start 02/27/19 at 11:00 Ceftriaxone Sodium 50 ml @ 100 mls/hr Q24H IVPB Last administered on 03/05/19at 11:50; Admin Dose 100 MLS/HR; Start 02/27/19 at 11:00 Fluconazole (Diflucan) 100 mg DAILY PO Last administered on 03/05/19at 08:49; Admin Dose 100 MG; Start 02/27/19 at 15:00 Clonidine HCl (Catapres-Tts 2 Patch) 1 patch Q7D TRANSDERM Last administered on 03/03/19at 12:42; Admin Dose 1 PATCH; Start 03/03/19 at 12:00 Alteplase, Recombinant (Cathflo (Activase)) 2 mg MAY REPEAT X1 PRN CATHETER IF CATHETER REMAINS OCCULUDED Last administered on 03/04/19at 10:54; Admin Dose 2 MG; Start 03/04/19 at 08:00 Vancomycin HCl 1.25 gm/Sodium Chloride 250 ml @ 83.333 mls/ hr Q36H IVPB Last administered on 03/05/19at 01:33; Admin Dose 83.333 MLS/HR; Start 03/05/19 at 01:00 DAYDAY HERNANDEZ MD Mar 05, 2019 19:07
[2019-03-05 19:48] VITALS: BP 207/104; PULSE 88; RESP 16
[2019-03-05 20:30] VITALS: BP 175/82; PULSE 81
[2019-03-06] MEDS: ACCU-CHEK XX SCH (01:20)
[2019-03-06 07:25] VITALS: BP 176/86; PULSE 89; RESP 18
[2019-03-06] MEDS: INSULIN ASPART [NOVOLOG] 3 ML PEN SC SCH ×4 (08:00→21:00)
[2019-03-06] MEDS: metFORMIN 500 MG TAB PO SCH ×2 (08:42→17:00)
[2019-03-06] MEDS: GABAPENTIN 100 MG CAP PO SCH ×3 (08:42→21:07)
[2019-03-06] MEDS: LACTOBACILLUS RHAMNOSUS CAP PO SCH ×2 (08:42→21:07)
[2019-03-06] MEDS: DAKINS 0.0125%(1/40) 473 ML SOLUTION TP SCH (08:43)
[2019-03-06] MEDS: COLLAGENASE 5 GM (UD JAR) TOP SCH (08:44)
[2019-03-06] MEDS: CLOTRIMAZOLE 1% 30 GM CR TOP SCH ×2 (08:44→21:00)
[2019-03-06] MEDS: FLUCONAZOLE 100 MG TAB PO SCH (08:44)
[2019-03-06] MEDS: ASPIRIN (EC) 81 MG TAB PO SCH (08:45)
[2019-03-06] MEDS: POLYETHYLENE GLYCOL 17 GM PACKET PO SCH (08:45)
[2019-03-06] MEDS: FAMOTIDINE 20 MG TAB PO SCH (08:45)
[2019-03-06] MEDS: MULTIVITAMINS THERAPEUTIC TAB PO SCH (08:45)
[2019-03-06] MEDS: NIFEdipine (XL) 30 MG TAB PO SCH ×2 (08:45→21:00)
[2019-03-06] MEDS: METOPROLOL 100 MG TAB PO SCH ×2 (08:45→21:00)
[2019-03-06] MEDS: LISINOPRIL 20 MG TAB PO SCH (08:46)
[2019-03-06] MEDS: ASCORBIC ACID 500 MG TAB PO SCH (08:46)
[2019-03-06] MEDS: ENOXAPARIN 40 MG/0.4 ML SYG SC SCH (08:46)
--- NOTE | 2019-03-06 10:20 | PN ---
Date/Time of Note Date/Time of Note DATE: 03/06/19 TIME: 10:19 Assessment/Plan Lines/Catheters IV Catheter Type (from Nrs): PICC Line Chanel in Place (from Nrs): Yes Assessment/Plan Chief Complaint/Hosp Course 1. Multiple wounds s/p debridement of bilat buttock 02/07/19 bilateral buttock: Continuing to heal well; repeat wound cultures noted -further debridement prn -Continue local care> same tx -frequent turning and off-loading -low air loss mattress -vitamin c -optimize nutrition -bilateral LE wounds: per podiatry -dc ok from surgical standpoint 2. Osteomyelitis BLE -Antibiotics per ID 3. Hypertension -nutrition and medication management 4. Diabetes: hga1c: 6.5 -nutrition and medication management 5. Diabetic neuropathy -safety precs (ensure no lines/tubes, etc on skin) -diabetes optimization 6. Hypochromic anemia -monitor and tx as needed 7. Depression -psych optimization 8. 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 Intermittent noncompliance w meds -supportive Thank you Subjective 24 Hr Interval Summary No acute events. Feels okay. No fevers, chills, sob, congested cough, cp, palpitations, koch, dizziness, nausea, vomiting, diarrhea, dysuria, wound drainage or odor. Exam/Review of Systems Vital Signs Vitals Vital Signs Date Temp Pulse Resp B/P (MAP) Pulse Ox O2 O2 Flow FiO2 Time Delivery Rate 03/06/19 98.1 89 18 176/86 100 Room Air 07:25 (116) Intake and Output 03/05/19 03/05/19 03/06/19 1515:00 23:00 07:00 IntakeIntake Total 50 ml 600 ml 500 ml OutputOutput Total 900 ml 1000 ml BalanceBalance 50 ml -300 ml -500 ml Exam Free Text/Dictation Constitutional: alert, oriented, well developed Psych: nl mood/affect, labile Head: normocephalic, atraumatic Eyes: nl conjunctiva, EOMI, nl lids, nl sclera ENMT: nl external ears & nose, nl lips & teeth, mucosa pink and moist Neck: supple, non-tender; No jvd Respiratory: normal air movement; No congested cough Cardiovascular: regular rate and rhythm, nl pulses; No edema Gastrointestinal: soft, non-tender Genitourinary - Male: nl penis, nl scrotum Musculoskeletal: nl extremities to inspection, other (contracted BLE) Extremities: normal pulses; No pitting pedal edema Neurological: nl mental status, nl speech, nl strength Skin: other (multiple wounds: bilat buttock: clean, healing); BLE: wounds: dry No rash or lesions Lymph: No nl lymph nodes Results Result Diagram: 03/06/19 0445 MARIE GOODRICH MD Mar 06, 2019 10:20
[2019-03-06] MEDS: CEFTRIAXONE 1 GM/50 ML (PMX) 50 ML IVPB SCH (11:14)
[2019-03-06] MEDS: VANCOMYCIN HCL 1.25 GM in SOD CHLORIDE 0.9% 250 ML IVPB SCH (13:45)
[2019-03-06 14:00] VITALS: BP 185/83; PULSE 90; RESP 18
--- NOTE | 2019-03-06 14:51 | PN ---
Date/Time of Note Date/Time of Note DATE: 03/06/19 TIME: 14:49 Assessment/Plan VTE Prophylaxis Risk score (from Nsg)>0 risk: 8 SCD applied (from Nsg): No SCD contraindicated: low risk/ambulating Pharmacological prophylaxis: LMWH Lines/Catheters IV Catheter Type (from Nrsg): PICC Line Central line still needed: Yes Urinary Cath still in place: Yes Reason Cath still needed: urinary retention Assessment/Plan Hospital Course Assessment and plan 1. Bilateral lwr ext ulcers, stable cont local wound care/offload 2. Chr bilateral buttock ulcer sp debridement, offload 3. Chr debility/ wheelchair-bound status, prognosis guarded 4. Ftt/ homeless, needs placement. SNF needs wound care instructions. Antibiotic instructions are below. 5. Type 2 diabetes; nonadherent to insulin coverage scale 6. Metabolic syndrome 7. Hypertension not at goal; nonadherent to therapy. High risk of stroke d/w Silver. 8. Tobacco abuse, counseling/ patch 9. COPD? 10. Psychosis, not otherwise specified 11. Chr neurogenic bladder, probably diabetic associated, cont straight cath as needed 12. Chr OM last mnth: Daptomycin/ Gentamicin [2 wks/ till 02/23]. then change to IV Vanco/ Rocephin till 03/22 to complete course for OM. 13. Anemia 14. Vitamin D def 10. Nonadherence; attempted counseling. High risk of stroke; poor prognosis. 16. Onychomycosis S: 02/13 events noted 02/14 refusing medications for blood pressure etc. awaiting SNF approval 03/05 still refusing blood pressure and diabetic care. I discussed risk of stroke 03/06: No events still refusing blood pressure medicines O: Bp elevated PE No pallor droop Regular no mrg Clear Bs present nt nd no RRG Hypotonia, contractures. ~diabetic neuropathy. wounds dressed Result Diagram: 03/06/19 0445 Results 24hrs Laboratory Tests Test 03/05/19 17:13 03/05/19 22:34 03/06/19 04:45 03/06/19 08:33 Bedside Glucose 115 112 122 Blood Urea Nitrogen 37 H Creatinine 1.16 Test 03/06/19 12:16 Bedside Glucose 138 Exam/Review of Systems Exam Vitals Vital Signs Date Temp Pulse Resp B/P (MAP) Pulse Ox O2 O2 Flow FiO2 Time Delivery Rate 03/06/19 98.1 89 18 176/86 100 Room Air 07:25 (116) Intake and Output 03/05/19 03/05/19 03/06/19 1515:00 23:00 07:00 IntakeIntake Total 50 ml 600 ml 500 ml OutputOutput Total 900 ml 1000 ml BalanceBalance 50 ml -300 ml -500 ml Results Results 24hrs Laboratory Tests Test 03/05/19 17:13 03/05/19 22:34 03/06/19 04:45 03/06/19 08:33 Bedside Glucose 115 112 122 Blood Urea Nitrogen 37 H Creatinine 1.16 Test 03/06/19 12:16 Bedside Glucose 138 Medications Medication Current Medications IV Flush (NS 3 ml) 3 ml PER PROTOCOL IV Last administered on 03/03/19 20:27; Admin Dose 3 ML; Start 02/06/19 at 05:30 Ondansetron HCl (Zofran Inj) 4 mg Q6H PRN IV NAUSEA/VOMITING; Start 02/06/19 at 05:30 Acetaminophen (Tylenol Tab) 650 mg Q6H PRN PO .PAIN 1-3 OR TEMP Last administered on 02/06/19 21:57; Admin Dose 650 MG; Start 02/06/19 at 05:30 Acetaminophen/ Hydrocodone Bitart ([place] (5/325)) 1 tab Q6H PRN PO .MOD PAIN 4- 6 Last administered on 03/04/19 17:07; Admin Dose 1 TAB; Start 02/06/19 at 05:30 Morphine Sulfate (morphine) 2 mg Q4H PRN IV .SEVERE PAIN 7-10 Last administered on 03/05/19 08:46; Admin Dose 2 MG; Start 02/06/19 at 05:30 Docusate Sodium (Colace) 100 mg Q12H PRN PO .CONSTIPATION; Start 02/06/19 at 05:30 Magnesium Hydroxide (Milk Of Mag) 30 ml DAILY PRN PO .CONSTIPATION Last administered on 02/09/19 13:58; Admin Dose 30 ML; Start 02/06/19 at 05:30 Lorazepam (Ativan) 0.5 mg Q6H PRN IV ANXIETY; Start 02/06/19 at 05:30 Albuterol/ Ipratropium (Duoneb) 3 ml Q4H RESP THERAPY PRN HHN SHORTNESS OF BREATH; Start 02/06/19 at 05:30 Hydralazine HCl (Apresoline) 10 mg Q6H PRN IV ELEVATED BLOOD PRESSURE Last administered on 03/05/19at 19:58; Admin Dose 10 MG; Start 02/06/19 at 05:30 Clonidine (Catapres) 0.1 mg Q6H PRN PO ELEVATED SYSTOLIC BP Last administered on 02/18/19at 13:40; Admin Dose 0.1 MG; Start 02/06/19 at 05:30 Nitroglycerin (Nitroglycerin (Sl Tab) 0.4 Mg) 1 tab Q5M PRN SL ANGINA; Start 02/06/19 at 05:30 Ascorbic Acid (Vitamin C) 500 mg DAILY PO Last administered on 02/10/19at 08:25; Admin Dose 500 MG; Start 02/06/19 at 09:00 Gabapentin (Neurontin) 100 mg TID PO Last administered on 03/06/19at 13:45; Admin Dose 100 MG; Start 02/06/19 at 09:00 Multivitamins Therapeutic (Theragran) 1 tab DAILY PO Last administered on 02/10/19at 08:25; Admin Dose 1 TAB; Start 02/06/19 at 09:00 Miscellaneous Information Patients own medicat... BID@10,16 XX ; Start 02/06/19 at 16:00 Diagnostic Test (Pha) (Accu-Chek) 1 ea 02 XX ; Start 02/07/19 at 02:00 Insulin Aspart (Novolog Insulin Pen) NOVOLOG *MILD* ALGORITHM WITH MEALS BEDTIME SC Last administered on 02/26/19at 12:44; Admin Dose 3 UNIT; Start at 18:00 Miscellaneous Information 1 ea NOTE XX ; Start 02/06/19 at 14:30 Glucose (Glutose) 15 gm Q15M PRN PO DECREASED GLUCOSE; Start 02/06/19 at 14:30 Glucose (Glutose) 22.5 gm Q15M PRN PO DECREASED GLUCOSE; Start 02/06/19 at 14:30 Dextrose (D50w Syringe) 25 ml Q15M PRN IV DECREASED GLUCOSE; Start 02/06/19 at 14:30 Dextrose (D50w Syringe) 50 ml Q15M PRN IV DECREASED GLUCOSE; Start 02/06/19 at 14:30 Glucagon (Glucagen) 1 mg Q15M PRN IM DECREASED GLUCOSE; Start 02/06/19 at 14:30 Glucose (Glutose) 15 gm Q15M PRN BUCCAL DECREASED GLUCOSE; Start 02/06/19 at 14:30 Collagenase (Santyl) 1 applic DAILY TOP Last administered on 03/06/19 08:44; Admin Dose 1 APPLIC; Start 02/06/19 at 18:30 Collagenase (Santyl) 1 applic PRN PRN TOP WHEN SOILED; Start 02/06/19 at 18:30 Lisinopril (Zestril) 40 mg DAILY PO Last administered on 02/28/19 08:16; Admin Dose 40 MG; Start 02/08/19 at 09:00 Metformin HCl (Glucophage) 1,000 mg WITH BREAKFAST DINNE PO Last administered on 03/06/19 08:42; Admin Dose 1,000 MG; Start 02/07/19 at 18:00 Clotrimazole (Lotrimin Cr) 1 applic BID TOP Last administered on 03/05/19 08:48; Admin Dose 1 APPLIC; Start 02/07/19 at 11:30 Sodium Hypochlorite (Dakins Diluted (1/40)) 1 applic DAILY TP Last administered on 03/06/19 08:43; Admin Dose 1 APPLIC; Start 02/09/19 at 09:00 Nifedipine (Procardia Xl) 30 mg BID PO Last administered on 02/28/19 08:17; Admin Dose 30 MG; Start 02/11/19 at 15:00 Polyethylene Glycol (Miralax) 17 gm DAILY PO Last administered on 02/12/19at 1 2:40; Admin Dose 17 GM; Start 02/12/19 at 12:30 Famotidine (Pepcid) 20 mg DAILY PO Last administered on 03/05/19 08:49; Admin Dose 20 MG; Start 02/14/19 at 09:00 Metoprolol Tartrate (Lopressor) 100 mg BID PO Last administered on 02/28/19 08:17; Admin Dose 100 MG; Start 02/13/19 at 21:00 Aspirin (Halfprin) 81 mg DAILY PO ; Start 02/14/19 at 09:00 Lactobacillus Acidophilus/ Rhamnosus (Culturelle) 1 cap BID PO Last administered on 03/06/19 08:42; Admin Dose 1 CAP; Start 02/13/19 at 21:00 Enoxaparin Sodium (Lovenox) 40 mg DAILY SC Last administered on 03/03/19at 08:46; Admin Dose 40 MG; Start 02/14/19 at 09:00 Nicotine (Nicoderm 14 Mg/ 24hr) 1 patch DAILY PRN TRANSDERM CONTROL WITHDRAWAL SYMPTOMS; Start 02/13/19 at 15:00 IV Flush (NS 10 ml) 10 ml PRN PRN IV IV PROTOCOL; Start 02/20/19 at 12:30 Vancomycin HCl (Vanco Iv Per Pharmacy) VANCOMYCIN PER PHARMACY PER PROTOCOL XX ; Start 02/27/19 at 11:00 Ceftriaxone Sodium 50 ml @ 100 mls/hr Q24H IVPB Last administered on 03/06/19at 11:14; Admin Dose 100 MLS/HR; Start 02/27/19 at 11:00 Fluconazole (Diflucan) 100 mg DAILY PO Last administered on 03/05/19at 08:49; Admin Dose 100 MG; Start 02/27/19 at 15:00 Clonidine HCl (Catapres-Tts 2 Patch) 1 patch Q7D TRANSDERM Last administered on 03/03/19at 12:42; Admin Dose 1 PATCH; Start 03/03/19 at 12:00 Alteplase, Recombinant (Cathflo (Activase)) 2 mg MAY REPEAT X1 PRN CATHETER IF CATHETER REMAINS OCCULUDED Last administered on 03/04/19at 10:54; Admin Dose 2 MG; Start 03/04/19 at 08:00 Vancomycin HCl 1.25 gm/Sodium Chloride 250 ml @ 83.333 mls/ hr Q36H IVPB Last administered on 03/06/19at 13:45; Admin Dose 83.333 MLS/HR; Start 03/05/19 at 01:00 DAYDAY HERNANDEZ MD Mar 06, 2019 14:51
--- NOTE | 2019-03-06 19:21 | CONS ---
Assessment/Plan Assessment/Plan Hospital Course (Demo Recall) ID PROGRESS NOTE CURRENT ABX: DAY # => Vanco + Ceftriaxone + Diflucan s/p Zyvox + GENT s/p Vanco IV + Zosyn 24H INTERVAL SUMMARY * Resting with eyes closed, TV on -- no fevers, VSS, looks comfortable - no complaints * Non-compliance issues persisting per notes MICRO/OTHER * 02/25/19 LEFT BUTT CX (+) GNR = P.Stuartii + Glabrata * 02/25/19 RIGHT BUTT CX (+) GNR = P. Stuartii + Glabrata * 02/07/19 RIGHT BUTTOCK CX (+)WOUND CULTURE Final Organism 1 METHICILLIN RESISTANT S.AUREUS QUANTITY 2+ . MULTI DRUG RESISTANT ORGANISM Organism 2 PSEUDOMONAS AERUGINOSA QUANTITY ISOLATED FROM BROTH ONLY Organism 3 CORYNEBACTER JEIKEIUM (GRP JK) QUANTITY 2+ * 02/07/19 LEFT BUTTOCK CX == WOUND CULTURE Final Organism 1 METHICILLIN RESISTANT S.AUREUS QUANTITY SCANT GROWTH . MULTI DRUG RESISTANT ORGANISM Organism 2 PSEUDOMONAS AERUGINOSA QUANTITY SCANT GROWTH Organism 3 CORYNEBACTER JEIKEIUM (GRP JK) QUANTITY 1+ Organism 4 VANCO RESISTANT ENTEROCOCCUS * 02/06/19 BCx / (+) CoNS PHYSICAL EXAMINATION: GENERAL: VSS, NAD HEENT: AT, NC, unremarkable NECK: Supple, CHEST: Equal chest rise bilaterally, without dyspnea on observation HEART: Pulse RRR ABDOMEN: Soft : deferred EXTREMITIES: Warm, dry SKIN: No rash, no diaphoresis == SEE PHOTOS ID ASSESSMENT 63 yo M admit with: 1. Bilateral lower extremities diabetic ulcerations 2. Left foot osteomyelitis 3. Diabetes with diabetic neuropathy 4. Bilateral buttocks ulcerations, status post debridement 5. Coag negative staph bacteremia consistent with contaminant 6. Noncompliance ABX ALLERGIES: None to ABX INVASIVES: PICC CURRENT ABX: DAY # >Vanco IV + Ceftriaxone + Diflucan ID RECOMMENDATIONS/PLAN: 1. Continue current ABX over the Holiday long weekend 2. Will be covering ID team 5 days thru SUN next week . Consultation Date/Type/Reason Admit Date/Time Feb 06, 2019 at 03:18 Initial Consult Date 02/07/19 Requesting Provider: MASOUD SOLANO DPM Date/Time of Note DATE: 03/06/19 TIME: 19:17 Exam/Review of Systems Exam Vitals Vital Signs Date Temp Pulse Resp B/P (MAP) Pulse Ox O2 O2 Flow FiO2 Time Delivery Rate 03/06/19 98.0 90 18 185/83 100 Room Air 14:00 (117) Intake and Output 03/05/19 03/05/19 03/06/19 1515:00 23:00 07:00 IntakeIntake Total 50 ml 600 ml 500 ml OutputOutput Total 900 ml 1000 ml BalanceBalance 50 ml -300 ml -500 ml Results Result Diagram: 03/06/19 0445 Results 24hrs Laboratory Tests Test 03/05/19 22:34 03/06/19 04:45 03/06/19 08:33 03/06/19 12:16 Bedside Glucose 112 122 138 Blood Urea Nitrogen 37 H Creatinine 1.16 Test 03/06/19 16:56 Bedside Glucose 126 Medications Medication Current Medications IV Flush (NS 3 ml) 3 ml PER PROTOCOL IV Last administered on 03/03/19at 20:27; Admin Dose 3 ML; Start 02/06/19 at 05:30 Ondansetron HCl (Zofran Inj) 4 mg Q6H PRN IV NAUSEA/VOMITING; Start 02/06/19 at 05:30 Acetaminophen (Tylenol Tab) 650 mg Q6H PRN PO .PAIN 1-3 OR TEMP Last administered on 02/06/19at 21:57; Admin Dose 650 MG; Start 02/06/19 at 05:30 Acetaminophen/ Hydrocodone Bitart ([place] (5/325)) 1 tab Q6H PRN PO .MOD PAIN 4- 6 Last administered on 03/04/19 17:07; Admin Dose 1 TAB; Start 02/06/19 at 05:30 Morphine Sulfate (morphine) 2 mg Q4H PRN IV .SEVERE PAIN 7-10 Last administered on 03/05/19 08:46; Admin Dose 2 MG; Start 02/06/19 at 05:30 Docusate Sodium (Colace) 100 mg Q12H PRN PO .CONSTIPATION; Start 02/06/19 at 05:30 Magnesium Hydroxide (Milk Of Mag) 30 ml DAILY PRN PO .CONSTIPATION Last administered on 02/09/19 13:58; Admin Dose 30 ML; Start 02/06/19 at 05:30 Lorazepam (Ativan) 0.5 mg Q6H PRN IV ANXIETY; Start 02/06/19 at 05:30 Albuterol/ Ipratropium (Duoneb) 3 ml Q4H RESP THERAPY PRN HHN SHORTNESS OF BREATH; Start 02/06/19 at 05:30 Hydralazine HCl (Apresoline) 10 mg Q6H PRN IV ELEVATED BLOOD PRESSURE Last administered on 03/05/19 19:58; Admin Dose 10 MG; Start 02/06/19 at 05:30 Clonidine (Catapres) 0.1 mg Q6H PRN PO ELEVATED SYSTOLIC BP Last administered on 02/18/19 13:40; Admin Dose 0.1 MG; Start 02/06/19 at 05:30 Nitroglycerin (Nitroglycerin (Sl Tab) 0.4 Mg) 1 tab Q5M PRN SL ANGINA; Start 02/06/19 at 05:30 Ascorbic Acid (Vitamin C) 500 mg DAILY PO Last administered on 02/10/19 08:25; Admin Dose 500 MG; Start 02/06/19 at 09:00 Gabapentin (Neurontin) 100 mg TID PO Last administered on 03/06/19 13:45; Admin Dose 100 MG; Start 02/06/19 at 09:00 Multivitamins Therapeutic (Theragran) 1 tab DAILY PO Last administered on 02/10/19at 08:25; Admin Dose 1 TAB; Start 02/06/19 at 09:00 Miscellaneous Information Patients own medicat... BID@10,16 XX ; Start 02/06/19 at 16:00 Diagnostic Test (Pha) (Accu-Chek) 1 ea 02 XX ; Start 02/07/19 at 02:00 Insulin Aspart (Novolog Insulin Pen) NOVOLOG *MILD* ALGORITHM WITH MEALS BEDT NYDIA SC Last administered on 02/26/19at 12:44; Admin Dose 3 UNIT; Start 02/06/19 at 18:00 Miscellaneous Information 1 ea NOTE XX ; Start 02/06/19 at 14:30 Glucose (Glutose) 15 gm Q15M PRN PO DECREASED GLUCOSE; Start 02/06/19 at 14:30 Glucose (Glutose) 22.5 gm Q15M PRN PO DECREASED GLUCOSE; Start 02/06/19 at 14:30 Dextrose (D50w Syringe) 25 ml Q15M PRN IV DECREASED GLUCOSE; Start 02/06/19 at 14:30 Dextrose (D50w Syringe) 50 ml Q15M PRN IV DECREASED GLUCOSE; Start 02/06/19 at 14:30 Glucagon (Glucagen) 1 mg Q15M PRN IM DECREASED GLUCOSE; Start 02/06/19 at 14:30 Glucose (Glutose) 15 gm Q15M PRN BUCCAL DECREASED GLUCOSE; Start 02/06/19 at 14:30 Collagenase (Santyl) 1 applic DAILY TOP Last administered on 03/06/19 08:44; Admin Dose 1 APPLIC; Start 02/06/19 at 18:30 Collagenase (Santyl) 1 applic PRN PRN TOP WHEN SOILED; Start 02/06/19 at 18:30 Lisinopril (Zestril) 40 mg DAILY PO Last administered on 02/28/19 08:16; Admin Dose 40 MG; Start 02/08/19 at 09:00 Metformin HCl (Glucophage) 1,000 mg WITH BREAKFAST DINNE PO Last administered on 03/06/19 17:00; Admin Dose 1,000 MG; Start 02/07/19 at 18:00 Clotrimazole (Lotrimin Cr) 1 applic BID TOP Last administered on 03/05/19 08:48; Admin Dose 1 APPLIC; Start 02/07/19 at 11:30 Sodium Hypochlorite (Dakins Diluted ()) 1 applic DAILY TP Last administered on 03/06/19 08:43; Admin Dose 1 APPLIC; Start 02/09/19 at 09:00 Nifedipine (Procardia Xl) 30 mg BID PO Last administered on 02/28/19 08:17; Admin Dose 30 MG; Start 02/11/19 at 15:00 Polyethylene Glycol (Miralax) 17 gm DAILY PO Last administered on 02/12/19 12:40; Admin Dose 17 GM; Start 02/12/19 at 12:30 Famotidine (Pepcid) 20 mg DAILY PO Last administered on 03/05/19 08:49; Admin Dose 20 MG; Start 02/14/19 at 09:00 Metoprolol Tartrate (Lopressor) 100 mg BID PO Last administered on 02/28/19 08:17; Admin Dose 100 MG; Start 02/13/19 at 21:00 Aspirin (Halfprin) 81 mg DAILY PO ; Start 02/14/19 at 09:00 Lactobacillus Acidophilus/ Rhamnosus (Culturelle) 1 cap BID PO Last adminis tered on 03/06/19 08:42; Admin Dose 1 CAP; Start 02/13/19 at 21:00 Enoxaparin Sodium (Lovenox) 40 mg DAILY SC Last administered on 03/03/19 08:46; Admin Dose 40 MG; Start 02/14/19 at 09:00 Nicotine (Nicoderm 14 Mg/ 24hr) 1 patch DAILY PRN TRANSDERM CONTROL WITHDRAWAL SYMPTOMS; Start 02/13/19 at 15:00 IV Flush (NS 10 ml) 10 ml PRN PRN IV IV PROTOCOL; Start 02/20/19 at 12:30 Vancomycin HCl (Vanco Iv Per Pharmacy) VANCOMYCIN PER PHARMACY PER PROTOCOL XX ; Start 02/27/19 at 11:00 Ceftriaxone Sodium 50 ml @ 100 mls/hr Q24H IVPB Last administered on 03/06/19 11:14; Admin Dose 100 MLS/HR; Start 02/27/19 at 11:00 Fluconazole (Diflucan) 100 mg DAILY PO Last administered on 03/05/19 08:49; Admin Dose 100 MG; Start 02/27/19 at 15:00 Clonidine HCl (Catapres-Tts 2 Patch) 1 patch Q7D TRANSDERM Last administered on 03/03/19 12:42; Admin Dose 1 PATCH; Start 03/03/19 at 12:00 Alteplase, Recombinant (Cathflo (Activase)) 2 mg MAY REPEAT X1 PRN CATHETER IF CATHETER REMAINS OCCULUDED Last administered on 03/04/19 10:54; Admin Dose 2 MG; Start 03/04/19 at 08:00 Vancomycin HCl 1.25 gm/Sodium Chloride 250 ml @ 83.333 mls/ hr Q36H IVPB Last administered on 03/06/19 13:45; Admin Dose 83.333 MLS/HR; Start 03/05/19 at 01:00 BARRERA AGUIAR NP Mar 06, 2019 19:21
[2019-03-06 19:52] VITALS: BP 192/91; PULSE 80; RESP 18
[2019-03-06] MEDS: hydrALAzine 20 MG INJ IV PRN (21:07)
[2019-03-07] MEDS: ACCU-CHEK XX SCH (02:00)
[2019-03-07 07:41] VITALS: BP 191/92; PULSE 79; RESP 18
[2019-03-07] MEDS: INSULIN ASPART [NOVOLOG] 3 ML PEN SC SCH ×2 (08:00→12:00)
[2019-03-07] MEDS: GABAPENTIN 100 MG CAP PO SCH ×2 (08:19→13:58)
[2019-03-07] MEDS: metFORMIN 500 MG TAB PO SCH (08:20)
[2019-03-07] MEDS: LACTOBACILLUS RHAMNOSUS CAP PO SCH (08:20)
[2019-03-07] MEDS: DAKINS 0.0125%(1/40) 473 ML SOLUTION TP SCH (08:21)
[2019-03-07] MEDS: COLLAGENASE 5 GM (UD JAR) TOP SCH (08:22)
[2019-03-07] MEDS: CLOTRIMAZOLE 1% 30 GM CR TOP SCH (08:22)
[2019-03-07] MEDS: METOPROLOL 100 MG TAB PO SCH (08:23)
[2019-03-07] MEDS: ASPIRIN (EC) 81 MG TAB PO SCH (08:23)
[2019-03-07] MEDS: FLUCONAZOLE 100 MG TAB PO SCH (08:23)
[2019-03-07] MEDS: FAMOTIDINE 20 MG TAB PO SCH (08:23)
[2019-03-07] MEDS: POLYETHYLENE GLYCOL 17 GM PACKET PO SCH (08:23)
[2019-03-07] MEDS: MULTIVITAMINS THERAPEUTIC TAB PO SCH (08:24)
[2019-03-07] MEDS: ASCORBIC ACID 500 MG TAB PO SCH (08:24)
[2019-03-07] MEDS: NIFEdipine (XL) 30 MG TAB PO SCH (08:24)
[2019-03-07] MEDS: LISINOPRIL 20 MG TAB PO SCH (08:24)
[2019-03-07] MEDS: ENOXAPARIN 40 MG/0.4 ML SYG SC SCH (08:25)
[2019-03-07] MEDS: hydrALAzine 20 MG INJ IV PRN (11:03)
[2019-03-07] MEDS: CEFTRIAXONE 1 GM/50 ML (PMX) 50 ML IVPB SCH (11:03)
--- NOTE | 2019-03-07 12:42 | PN ---
Date/Time of Note Date/Time of Note DATE: 03/07/19 TIME: 12:39 Assessment/Plan Lines/Catheters IV Catheter Type (from [facility]): PICC Line Chan[place] in Place (from [facility]): Yes Assessment/Plan Chief Complaint/Hosp Course 1. Multiple wounds s/p debridement of bilat buttock 02/07/19 bilateral buttock: healing well; repeat wound cultures noted -further debridement prn -Continue local care> same tx -frequent turning and off-loading -low air loss mattress -vitamin c -optimize nutrition -bilateral LE wounds: per podiatry -dc ok from surgical standpoint 2. Osteomyelitis BLE -Antibiotics per ID 3. Hypertension -nutrition and medication management 4. Diabetes: hga1c: 6.5 -nutrition and medication management 5. Diabetic neuropathy -safety precs (ensure no lines/tubes, etc on skin) -diabetes optimization 6. Hypochromic anemia -monitor and tx as needed 7. Depression -psych optimization 8. Hypocalcemia: likely multifactorial -nutrition optimization -treat infections 9. 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 Intermittent noncompliance w meds -supportive Thank you. Patient seen and examined in collaboration with Dr. Kj Moran Subjective 24 Hr Interval Summary Refused dressing changes yesterday, however continues to offload. No fevers, chills, sob, congested cough, cp, palpitations, koch, dizziness, n/v/d/dysuria. Exam/Review of Systems Vital Signs Vitals Vital Signs Date Temp Pulse Resp B/P (MAP) Pulse Ox O2 O2 Flow FiO2 Time Delivery Rate 03/07/19 97.9 79 18 191/92 98 07:41 (125) 03/06/19 Room Air 14:00 Intake and Output 03/06/19 03/06/19 03/07/19 1414:59 22:59 06:59 IntakeIntake Total 680 ml 300 ml OutputOutput Total 900 ml BalanceBalance 680 ml -600 ml Exam Free Text/Dictation Constitutional: alert, oriented, well developed Psych: nl mood/affect, labile Head: normocephalic, atraumatic Eyes: nl conjunctiva, EOMI, nl lids, nl sclera ENMT: nl external ears & nose, nl lips & teeth, mucosa pink and moist Neck: supple, non-tender; No jvd Respiratory: normal air movement; No congested cough Cardiovascular: regular rate and rhythm, nl pulses; No edema Gastrointestinal: soft, non-tender Genitourinary - Male: nl penis, nl scrotum Musculoskeletal: nl extremities to inspection, other (contracted BLE) Extremities: normal pulses; No pitting pedal edema Neurological: nl mental status, nl speech, nl strength Skin: other (multiple wounds: bilat buttock: clean, healing well); BLE: wounds: dry No rash or lesions Lymph: No nl lymph nodes Results Result Diagram: 03/06/19 0445 CALLY NOEL NP Mar 07, 2019 12:42
[2019-03-07 14:00] VITALS: BP 173/86; PULSE 82; RESP 18
--- NOTE | 2019-03-07 14:17 | PN ---
Date/Time of Note Date/Time of Note DATE: 03/07/19 TIME: 14:16 Assessment/Plan VTE Prophylaxis Risk score (from Nsg)>0 risk: 8 SCD applied (from Nsg): No SCD contraindicated: low risk/ambulating Pharmacological prophylaxis: LMWH Lines/Catheters IV Catheter Type (from Nrsg): PICC Line Central line still needed: Yes Urinary Cath still in place: Yes Reason Cath still needed: urinary retention Assessment/Plan Hospital Course Assessment and plan 1. Bilateral lwr ext ulcers, stable cont local wound care/offload 2. Chr bilateral buttock ulcer sp debridement, offload 3. Chr debility/ wheelchair-bound status, prognosis guarded 4. Ftt/ homeless, needs placement. SNF needs wound care instructions. Antibiotic instructions are below. 5. Type 2 diabetes; nonadherent to insulin coverage scale 6. Metabolic syndrome 7. Hypertension not at goal; nonadherent to therapy. High risk of stroke d/w Silver. 8. Tobacco abuse, counseling/ patch 9. COPD? 10. Psychosis, not otherwise specified 11. Chr neurogenic bladder, probably diabetic associated, cont straight cath as needed 12. Chr OM last mnth: Daptomycin/ Gentamicin [2 wks/ till 02/23]. then change to IV Vanco/ Rocephin till 03/22 to complete course for OM. 13. Anemia 14. Vitamin D def 10. Nonadherence; attempted counseling. High risk of stroke; poor prognosis. 16. Onychomycosis S: 02/13 events noted 02/14 refusing medications for blood pressure etc. awaiting SNF approval 03/05 still refusing blood pressure and diabetic care. I discussed risk of stroke 03/06: No events still refusing blood pressure medicines 03/07 blood pressure still elevated not at goal but unfortunately patient is refusing medicine. Will consult palliative care O: Bp elevated PE No pallor droop Regular no mrg Clear Bs present nt nd no RRG Hypotonia, contractures. ~diabetic neuropathy. wounds dressed Result Diagram: 03/06/19 0445 Results 24hrs Laboratory Tests Test 03/06/19 16:56 03/06/19 21:06 03/07/19 08:09 03/07/19 12:30 Bedside Glucose 126 112 99 135 Exam/Review of Systems Exam Vitals Vital Signs Date Temp Pulse Resp B/P (MAP) Pulse Ox O2 O2 Flow FiO2 Time Delivery Rate 03/07/19 97.9 79 18 191/92 98 07:41 (125) 03/06/19 Room Air 14:00 Intake and Output 03/06/19 03/06/19 03/07/19 1515:00 23:00 07:00 IntakeIntake Total 680 ml 300 ml OutputOutput Total 900 ml BalanceBalance 680 ml -600 ml Results Results 24hrs Laboratory Tests Test 03/06/19 16:56 03/06/19 21:06 03/07/19 08:09 03/07/19 12:30 Bedside Glucose 126 112 99 135 Medications Medication Current Medications IV Flush (NS 3 ml) 3 ml PER PROTOCOL IV Last administered on 03/03/19 20:27; Admin Dose 3 ML; Start 02/06/19 at 05:30 Ondansetron HCl (Zofran Inj) 4 mg Q6H PRN IV NAUSEA/VOMITING; Start 02/06/19 at 05:30 Acetaminophen (Tylenol Tab) 650 mg Q6H PRN PO .PAIN 1-3 OR TEMP Last administered on 02/06/19at 21:57; Admin Dose 650 MG; Start 02/06/19 at 05:30 Acetaminophen/ Hydrocodone Bitart ([place] (5/325)) 1 tab Q6H PRN PO .MOD PAIN 4- 6 Last administered on 03/04/19 17:07; Admin Dose 1 TAB; Start 02/06/19 at 05:30 Morphine Sulfate (morphine) 2 mg Q4H PRN IV .SEVERE PAIN 7-10 Last administered on 03/05/19 08:46; Admin Dose 2 MG; Start 02/06/19 at 05:30 Docusate Sodium (Colace) 100 mg Q12H PRN PO .CONSTIPATION; Start 02/06/19 at 05:30 Magnesium Hydroxide (Milk Of Mag) 30 ml DAILY PRN PO .CONSTIPATION Last administered on 02/09/19 13:58; Admin Dose 30 ML; Start 02/06/19 at 05:30 Lorazepam (Ativan) 0.5 mg Q6H PRN IV ANXIETY; Start 02/06/19 at 05:30 Albuterol/ Ipratropium (Duoneb) 3 ml Q4H RESP THERAPY PRN HHN SHORTNESS OF BREATH; Start 02/06/19 at 05:30 Hydralazine HCl (Apresoline) 10 mg Q6H PRN IV ELEVATED BLOOD PRESSURE Last administered on 03/07/19at 11:03; Admin Dose 10 MG; Start 02/06/19 at 05:30 Clonidine (Catapres) 0.1 mg Q6H PRN PO ELEVATED SYSTOLIC BP Last administered on 02/18/19at 13:40; Admin Dose 0.1 MG; Start 02/06/19 at 05:30 Nitroglycerin (Nitroglycerin (Sl Tab) 0.4 Mg) 1 tab Q5M PRN SL ANGINA; Start 02/06/19 at 05:30 Ascorbic Acid (Vitamin C) 500 mg DAILY PO Last administered on 02/10/19 08:25; Admin Dose 500 MG; Start 02/06/19 at 09:00 Gabapentin (Neurontin) 100 mg TID PO Last administered on 03/07/19at 13:58; Admin Dose 100 MG; Start 02/06/19 at 09:00 Multivitamins Therapeutic (Theragran) 1 tab DAILY PO Last administered on 02/10/19at 08:25; Admin Dose 1 TAB; Start 02/06/19 at 09:00 Miscellaneous Information Patients own medicat... BID@10,16 XX ; Start 02/06/19 at 16:00 Diagnostic Test (Pha) (Accu-Chek) 1 ea 02 XX ; Start 02/07/19 at 02:00 Insulin Aspart (Novolog Insulin Pen) NOVOLOG *MILD* ALGORITHM WITH MEALS BEDTIME SC Last administered on 02/26/19at 12:44; Admin Dose 3 UNIT; Start 02/06/19 at 18:00 Miscellaneous Information 1 ea NOTE XX ; Start 02/06/19 at 14:30 Glucose (Glutose) 15 gm Q15M PRN PO DECREASED GLUCOSE; Start 02/06/19 at 14:30 Glucose (Glutose) 22.5 gm Q15M PRN PO DECREASED GLUCOSE; Start 02/06/19 at 14:30 Dextrose (D50w Syringe) 25 ml Q15M PRN IV DECREASED GLUCOSE; Start 02/06/19 at 14:30 Dextrose (D50w Syringe) 50 ml Q15M PRN IV DECREASED GLUCOSE; Start 02/06/19 at 14:30 Glucagon (Glucagen) 1 mg Q15M PRN IM DECREASED GLUCOSE; Start 02/06/19 at 14:30 Glucose (Glutose) 15 gm Q15M PRN BUCCAL DECREASED GLUCOSE; Start 02/06/19 at 14:30 Collagenase (Santyl) 1 applic DAILY TOP Last administered on 03/07/19 08:22; Admin Dose 1 APPLIC; Start 02/06/19 at 18:30 Collagenase (Santyl) 1 applic PRN PRN TOP WHEN SOILED; Start 02/06/19 at 18:30 Lisinopril (Zestril) 40 mg DAILY PO Last administered on 02/28/19 08:16; Admin Dose 40 MG; Start 02/08/19 at 09:00 Metformin HCl (Glucophage) 1,000 mg WITH BREAKFAST DINNE PO Last administered on 03/07/19 08:20; Admin Dose 1,000 MG; Start 02/07/19 at 18:00 Clotrimazole (Lotrimin Cr) 1 applic BID TOP Last administered on 03/07/19 08:22; Admin Dose 1 APPLIC; Start 02/07/19 at 11:30 Sodium Hypochlorite (Dakins Diluted (1/40)) 1 applic DAILY TP Last administered on 03/07/19 08:21; Admin Dose 1 APPLIC; Start 02/09/19 at 09:00 Nifedipine (Procardia Xl) 30 mg BID PO Last administered on 02/28/19 08:17; Admin Dose 30 MG; Start 02/11/19 at 15:00 Polyethylene Glycol (Miralax) 17 gm DAILY PO Last administered on 02/12/19at 12:40; Admin Dose 17 GM; Start 02/12/19 at 12:30 Famotidine (Pepcid) 20 mg DAILY PO Last administered on 03/05/19 08:49; Admin Dose 20 MG; Start 02/14/19 at 09:00 Metoprolol Tartrate (Lopressor) 100 mg BID PO Last administered on 02/28/19 08:17; Admin Dose 100 MG; Start 02/13/19 at 21:00 Aspirin (Halfprin) 81 mg DAILY PO ; Start 02/14/19 at 09:00 Lactobacillus Acidophilus/ Rhamnosus (Culturelle) 1 cap BID PO Last administered on 03/07/19 08:20; Admin Dose 1 CAP; Start 02/13/19 at 21:00 Enoxaparin Sodium (Lovenox) 40 mg DAILY SC Last administered on 03/03/19at 08:46; Admin Dose 40 MG; Start 02/14/19 at 09:00 Nicotine (Nicoderm 14 Mg/ 24hr) 1 patch DAILY PRN TRANSDERM CONTROL WITHDRAWAL SYMPTOMS; Start 02/13/19 at 15:00 IV Flush (NS 10 ml) 10 ml PRN PRN IV IV PROTOCOL; Start 02/20/19 at 12:30 Vancomycin HCl (Vanco Iv Per Pharmacy) VANCOMYCIN PER PHARMACY PER PROTOCOL XX ; Start 02/27/19 at 11:00 Ceftriaxone Sodium 50 ml @ 100 mls/hr Q24H IVPB Last administered on 03/07/19at 11:03; Admin Dose 100 MLS/HR; Start 02/27/19 at 11:00 Fluconazole (Diflucan) 100 mg DAILY PO Last administered on 03/05/19at 08:49; Admin Dose 100 MG; Start 02/27/19 at 15:00 Clonidine HCl (Catapres-Tts 2 Patch) 1 patch Q7D TRANSDERM Last administered on 03/03/19at 12:42; Admin Dose 1 PATCH; Start 03/03/19 at 12:00 Alteplase, Recombinant (Cathflo (Activase)) 2 mg MAY REPEAT X1 PRN CATHETER IF CATHETER REMAINS OCCULUDED Last administered on 03/04/19at 10:54; Admin Dose 2 MG; Start 03/04/19 at 08:00 Vancomycin HCl 1.25 gm/Sodium Chloride 250 ml @ 83.333 mls/ hr Q36H IVPB Last administered on 03/06/19at 13:45; Admin Dose 83.333 MLS/HR; Start 03/05/19 at 01:00 Miscellaneous Information (*Rx Drug Level Order Reminder*) VANCO TROUGH 03/08 @ 0,000 0000 ONCE XX ; Start 03/08/19 at 00:00; Stop 03/08/19 at 00:01 DAYDAY HERNANDEZ MD Mar 07, 2019 14:16
== END 2019-03-07 16:58 | disposition left against medical advice (07) | DRG 622 ==
LOC: E/R 22:30 → 5EC 02-06 03:18
PROVIDERS: ADMIT Hospitalist; ATTEND Internal Medicine
PROC: 0JB90ZZ Excision of Buttock Subcutaneous Tissue and Fascia, Open Approach (ICD-10-PCS; principal; 2019-02-07)
PROC: 0JB90ZZ Excision of Buttock Subcutaneous Tissue and Fascia, Open Approach (ICD-10-PCS; 2019-02-07)
PROC: 02HV33Z Insertion of Infusion Device into Superior Vena Cava, Percutaneous Approach (ICD-10-PCS; 2019-02-20)
DX: E11.621 Type 2 diabetes mellitus with foot ulcer (principal); L89.223 Pressure ulcer of left hip, stage 3; L89.213 Pressure ulcer of right hip, stage 3; M86.372 Chronic multifocal osteomyelitis, left ankle and foot; R78.81 Bacteremia; L97.519 Non-pressure chronic ulcer of other part of right foot with unspecified severity; Z59.0 Homelessness; Z72.0 Tobacco use; I10 Essential (primary) hypertension; L97.529 Non-pressure chronic ulcer of other part of left foot with unspecified severity; R32 Unspecified urinary incontinence; D64.9 Anemia, unspecified; Z99.3 Dependence on wheelchair; M62.462 Contracture of muscle, left lower leg; M62.461 Contracture of muscle, right lower leg; E87.6 Hypokalemia; E83.51 Hypocalcemia; E11.40 Type 2 diabetes mellitus with diabetic neuropathy, unspecified; F29 Unspecified psychosis not due to a substance or known physiological condition; E55.9 Vitamin D deficiency, unspecified; Z91.19 Patient's noncompliance with other medical treatment and regimen; B95.62 Methicillin resistant Staphylococcus aureus infection as the cause of diseases classified elsewhere; B96.5 Pseudomonas (aeruginosa) (mallei) (pseudomallei) as the cause of diseases classified elsewhere; B95.2 Enterococcus as the cause of diseases classified elsewhere; B96.89 Other specified bacterial agents as the cause of diseases classified elsewhere
CPT/HCPCS: 36415; 36569; 71045; 76937; 80048; 80053; 80061; 80170; 80202; 80307; 82550; 82565; 82962; 83036; 83605; 83690; 83735; 84100; 84155; 84300; 84439; 84443; 84520; 85025; 85610; 85730; 86592; 87070; 97110; 97162; 97164; 97530; J0360; J0696; J1580; J1644; J1650; J1815; J2270; J2543; J3370; J7030; J7050

== ENCOUNTER 2019-04-15 08:53 | Inpatient (IN) | payer OTHER ==
[~2019-04-15] VITALS: Ht 172.7 cm; Wt 72.5 kg
[~2019-04-15 08:53] MED LIST changes: +CIPR500T4 PO; +DOXY100T21 PO; +GABA300C16 PO; +HYDR-3643 PO; +METF100010 PO; +METH750T2 PO
[2019-04-15] MEDS ORDERED: VANCOMYCIN 1 GM (PMX) 250 ML IVPB STA (08:59)
[2019-04-15] MEDS ORDERED: PIPER-TAZO 3.375 GM IV (PMX) 100 ML IVPB STA (08:59)
[2019-04-15] MEDS ORDERED: ONDANSETRON 4 MG INJ IV PRN ×2 (11:00→12:30)
[2019-04-15] MEDS ORDERED: ACETAMINOPHEN 325 MG TAB PO PRN ×2 (11:00→12:30)
[2019-04-15] MEDS ORDERED: LORAZEPAM 2 MG INJ IV PRN (12:30)
[2019-04-15] MEDS ORDERED: DOCUSATE SODIUM 100 MG CAP PO PRN (12:30)
[2019-04-15] MEDS ORDERED: ALBUTEROL/IPRATROPIUM (NEB) 3 ML AMP HHN PRN (12:30)
[2019-04-15] MEDS ORDERED: VANCOMYCIN IV PER PHARMACY XX SCH (12:30)
[2019-04-15] MEDS ORDERED: morphine 2 MG INJ IV PRN (12:30)
[2019-04-15] MEDS ORDERED: NITROGLYCERIN (SL) 0.4 MG TAB SL PRN (12:30)
[2019-04-15] MEDS ORDERED: NACL 0.9% 3 ML SYG IV SCH (12:30)
[2019-04-15] MEDS ORDERED: MAGNESIUM HYDROXIDE 30ML CUP PO PRN (12:30)
[2019-04-15] MEDS ORDERED: VANCOMYCIN 500 MG (PMX) 100 ML IVPB ONE (15:00)
[2019-04-15 19:06] VITALS: BP 180/84; PULSE 92; RESP 20
[2019-04-15 19:09] VITALS: BP 195/90; PULSE 96; RESP 20
[2019-04-15 19:28] VITALS: BP 187/74; PULSE 90; RESP 16
[2019-04-15] MEDS ORDERED: PENDING SANTYL ORDER FOR WOUND CARE XX PRN (20:00)
[2019-04-15 20:19] VITALS: Ht 172.7 cm; Wt 72.5 kg
[2019-04-15 23:58] VITALS: BP 176/76; PULSE 91; RESP 18
[2019-04-15] MEDS: PIPER-TAZO 3.375 GM IV (PMX) 100 ML IVPB SCH (23:58)
[2019-04-15] MEDS: HEPARIN 5,000 UNIT/1 ML VIAL SC SCH (23:59)
[2019-04-15] MEDS: SOD CHLORIDE 0.45% 1,000 ML IV SCH (23:59)
[2019-04-16] MEDS: PANTOPRAZOLE (EC) 40 MG TAB PO SCH (00:16)
[2019-04-16] MEDS: SOD CHLORIDE 0.45% 1,000 ML IV SCH ×2 (01:49→09:34)
[2019-04-16] MEDS: PIPER-TAZO 3.375 GM IV (PMX) 100 ML IVPB SCH ×5 (04:16→23:42)
[2019-04-16] MEDS ORDERED: [UNRECOGNIZED DRUG - REMARK] XX SCH (04:30)
[2019-04-16 07:44] VITALS: BP 194/88; PULSE 89; RESP 18
[2019-04-16] MEDS: hydrALAzine 20 MG INJ IV PRN ×2 (09:29→16:40)
[2019-04-16] MEDS ORDERED: GLUCOSE GEL 15 GRAM TUBE PO PRN ×2 (10:00)
[2019-04-16] MEDS ORDERED: DEXTROSE 50% 50 ML SYRINGE IV PRN ×2 (10:00)
[2019-04-16] MEDS: NICOTINE (14 MG/24 HR) PATCH TRANSDERM SCH (10:00)
[2019-04-16] MEDS ORDERED: GLUCAGON 1 MG INJ IM PRN (10:00)
[2019-04-16] MEDS ORDERED: GLUCOSE GEL 15 GRAM TUBE BUCCAL PRN (10:00)
[2019-04-16] MEDS: HEPARIN 5,000 UNIT/1 ML VIAL SC SCH ×2 (10:16→20:11)
[2019-04-16] MEDS: INSULIN ASPART [NOVOLOG] 3 ML PEN SC SCH ×3 (13:00→20:10)
[2019-04-16 14:18] VITALS: BP 173/78; PULSE 95; RESP 17
[2019-04-16] MEDS: COLLAGENASE 5 GM (UD JAR) TOP SCH (16:30)
[2019-04-16] MEDS: VANCOMYCIN 1.25 GM/NS 250 ML 250 ML IVPB SCH (18:03)
[2019-04-16 18:37] VITALS: BP 151/67; PULSE 96; RESP 17
[2019-04-16] MEDS: ASCORBIC ACID 500 MG TAB PO SCH (20:08)
[2019-04-16] MEDS: HYDROCODONE/APAP (5/325) TAB PO PRN (20:09)
[2019-04-17] MEDS: INSULIN ASPART [NOVOLOG] 3 ML PEN SC SCH ×6 (00:37→20:29)
[2019-04-17] MEDS: ACCU-CHEK XX SCH ×3 (02:00→20:29)
[2019-04-17] MEDS: PIPER-TAZO 3.375 GM IV (PMX) 100 ML IVPB SCH ×4 (05:16→23:57)
[2019-04-17] MEDS: SOD CHLORIDE 0.45% 1,000 ML IV SCH ×2 (05:17→17:31)
[2019-04-17] MEDS: PANTOPRAZOLE (EC) 40 MG TAB PO SCH (05:21)
[2019-04-17 07:26] VITALS: BP 190/91; PULSE 83; RESP 18
[2019-04-17] MEDS: hydrALAzine 20 MG INJ IV PRN ×2 (08:07→23:57)
[2019-04-17] MEDS: NICOTINE (14 MG/24 HR) PATCH TRANSDERM SCH (09:00)
[2019-04-17] MEDS: HEPARIN 5,000 UNIT/1 ML VIAL SC SCH ×2 (09:00→20:29)
[2019-04-17 09:08] VITALS: BP 180/84; PULSE 94; RESP 18
[2019-04-17] MEDS: MULTIVITAMINS/MINERALS TAB PO SCH (09:18)
[2019-04-17] MEDS: ZINC SULFATE 220 MG CAP PO SCH (09:19)
[2019-04-17] MEDS: ASCORBIC ACID 500 MG TAB PO SCH ×2 (09:19→20:29)
[2019-04-17] MEDS: HYDROCODONE/APAP (5/325) TAB PO PRN ×2 (09:19→20:26)
[2019-04-17] MEDS: COLLAGENASE 5 GM (UD JAR) TOP SCH (11:40)
[2019-04-17 11:43] VITALS: BP 170/80; PULSE 87; RESP 18
[2019-04-17] MEDS: metFORMIN 500 MG TAB PO SCH ×2 (12:30→17:31)
[2019-04-17 15:13] VITALS: BP 169/79; PULSE 80; RESP 18
[2019-04-17] MEDS: VANCOMYCIN 1.25 GM/NS 250 ML 250 ML IVPB SCH (18:34)
[2019-04-17 19:30] VITALS: BP 155/68; PULSE 82; RESP 20
[2019-04-17 23:50] VITALS: BP 180/86; PULSE 79; RESP 20
[2019-04-18] VITALS (8 sets, daily range): BP systolic 143–185; BP diastolic 67–87; PULSE 81–92; RESP 16–18
[2019-04-18] MEDS: ACCU-CHEK XX SCH ×6 (01:05→23:22)
[2019-04-18] MEDS: PANTOPRAZOLE (EC) 40 MG TAB PO SCH (05:51)
[2019-04-18] MEDS: PIPER-TAZO 3.375 GM IV (PMX) 100 ML IVPB SCH ×4 (06:22→23:30)
[2019-04-18] MEDS: hydrALAzine 20 MG INJ IV PRN ×2 (06:22→21:59)
[2019-04-18] MEDS: SOD CHLORIDE 0.45% 1,000 ML IV SCH ×3 (06:49→23:32)
[2019-04-18] MEDS: INSULIN ASPART [NOVOLOG] 3 ML PEN SC SCH ×4 (08:45→20:06)
[2019-04-18] MEDS: ZINC SULFATE 220 MG CAP PO SCH (08:46)
[2019-04-18] MEDS: metFORMIN 500 MG TAB PO SCH ×2 (08:46→17:06)
[2019-04-18] MEDS: ASCORBIC ACID 500 MG TAB PO SCH ×2 (08:47→20:05)
[2019-04-18] MEDS: NICOTINE (14 MG/24 HR) PATCH TRANSDERM SCH (08:47)
[2019-04-18] MEDS: COLLAGENASE 5 GM (UD JAR) TOP SCH (08:47)
[2019-04-18] MEDS: MULTIVITAMINS/MINERALS TAB PO SCH (08:47)
[2019-04-18] MEDS: HEPARIN 5,000 UNIT/1 ML VIAL SC SCH ×2 (08:47→20:06)
[2019-04-18] MEDS: HYDROCODONE/APAP (5/325) TAB PO PRN (08:53)
[2019-04-18] MEDS: METOPROLOL 25 MG TAB PO SCH ×2 (15:15→23:00)
[2019-04-19] VITALS (7 sets, daily range): BP systolic 150–210; BP diastolic 72–94; PULSE 76–82; RESP 14–20
[2019-04-19] MEDS: PANTOPRAZOLE (EC) 40 MG TAB PO SCH (05:10)
[2019-04-19] MEDS: PIPER-TAZO 3.375 GM IV (PMX) 100 ML IVPB SCH ×3 (05:26→17:35)
[2019-04-19] MEDS: VANCOMYCIN 1.25 GM/NS 250 ML 250 ML IVPB SCH (06:05)
[2019-04-19] MEDS: ACCU-CHEK XX SCH ×4 (07:05→21:00)
[2019-04-19] MEDS: INSULIN ASPART [NOVOLOG] 3 ML PEN SC SCH ×4 (07:35→21:00)
[2019-04-19] MEDS: hydrALAzine 20 MG INJ IV PRN ×2 (07:47→14:39)
[2019-04-19] MEDS: ASCORBIC ACID 500 MG TAB PO SCH ×3 (08:14→21:37)
[2019-04-19] MEDS: metFORMIN 500 MG TAB PO SCH ×2 (08:14→17:34)
[2019-04-19] MEDS: COLLAGENASE 5 GM (UD JAR) TOP SCH (08:15)
[2019-04-19] MEDS: MULTIVITAMINS/MINERALS TAB PO SCH (08:15)
[2019-04-19] MEDS: METOPROLOL 25 MG TAB PO SCH ×3 (08:15→21:38)
[2019-04-19] MEDS: HEPARIN 5,000 UNIT/1 ML VIAL SC SCH ×2 (08:18→21:00)
[2019-04-19] MEDS: ZINC SULFATE 220 MG CAP PO SCH (08:21)
[2019-04-19] MEDS: HYDROCODONE/APAP (5/325) TAB PO PRN (08:22)
[2019-04-19] MEDS: LISINOPRIL 20 MG TAB PO SCH (17:45)
[2019-04-19] MEDS: GABAPENTIN 100 MG CAP PO SCH ×3 (17:45→21:37)
[2019-04-19] MEDS: SOD CHLORIDE 0.45% 1,000 ML IV SCH (21:28)
[2019-04-20] MEDS: PIPER-TAZO 3.375 GM IV (PMX) 100 ML IVPB SCH ×5 (01:12→23:05)
[2019-04-20] MEDS: hydrALAzine 20 MG INJ IV PRN ×3 (01:14→21:51)
[2019-04-20 01:16] VITALS: BP 196/95; PULSE 88; RESP 20
[2019-04-20] MEDS: ACCU-CHEK XX SCH ×5 (02:00→21:00)
[2019-04-20] MEDS: PANTOPRAZOLE (EC) 40 MG TAB PO SCH (05:02)
[2019-04-20] MEDS: SOD CHLORIDE 0.45% 1,000 ML IV SCH ×2 (06:30→16:06)
[2019-04-20] MEDS: INSULIN ASPART [NOVOLOG] 3 ML PEN SC SCH ×4 (07:35→22:10)
[2019-04-20 07:57] VITALS: BP 181/81; PULSE 81; RESP 18
[2019-04-20] MEDS: HEPARIN 5,000 UNIT/1 ML VIAL SC SCH ×2 (08:26→20:23)
[2019-04-20] MEDS: COLLAGENASE 5 GM (UD JAR) TOP SCH (08:26)
[2019-04-20] MEDS: MULTIVITAMINS/MINERALS TAB PO SCH (08:26)
[2019-04-20] MEDS: ASCORBIC ACID 500 MG TAB PO SCH ×2 (08:26→20:18)
[2019-04-20] MEDS: metFORMIN 500 MG TAB PO SCH ×2 (08:26→17:19)
[2019-04-20] MEDS: ZINC SULFATE 220 MG CAP PO SCH (08:26)
[2019-04-20] MEDS: LISINOPRIL 20 MG TAB PO SCH (08:27)
[2019-04-20] MEDS: METOPROLOL 25 MG TAB PO SCH ×2 (08:27→20:18)
[2019-04-20] MEDS: GABAPENTIN 100 MG CAP PO SCH ×3 (08:27→20:18)
[2019-04-20 14:07] VITALS: BP 207/96; PULSE 83; RESP 18
[2019-04-20] MEDS: VANCOMYCIN 1.25 GM/NS 250 ML 250 ML IVPB SCH (17:57)
[2019-04-20 20:13] VITALS: BP 193/88; PULSE 88; RESP 18
[2019-04-20 21:49] VITALS: BP 186/88; PULSE 80
[2019-04-21 01:44] VITALS: BP 186/88; PULSE 80; RESP 18
[2019-04-21] MEDS: ACCU-CHEK XX SCH ×5 (02:00→21:00)
[2019-04-21] MEDS: PIPER-TAZO 3.375 GM IV (PMX) 100 ML IVPB SCH ×3 (05:20→17:05)
[2019-04-21] MEDS: PANTOPRAZOLE (EC) 40 MG TAB PO SCH (06:00)
[2019-04-21 07:19] VITALS: BP 179/84; PULSE 74
[2019-04-21] MEDS: INSULIN ASPART [NOVOLOG] 3 ML PEN SC SCH ×4 (07:35→21:00)
[2019-04-21] MEDS: LISINOPRIL 20 MG TAB PO SCH (08:25)
[2019-04-21] MEDS: metFORMIN 500 MG TAB PO SCH ×2 (08:26→17:02)
[2019-04-21] MEDS: GABAPENTIN 100 MG CAP PO SCH ×3 (08:26→20:16)
[2019-04-21] MEDS: METOPROLOL 25 MG TAB PO SCH ×2 (08:26→20:16)
[2019-04-21] MEDS: ASCORBIC ACID 500 MG TAB PO SCH ×2 (08:29→20:32)
[2019-04-21] MEDS: ZINC SULFATE 220 MG CAP PO SCH (08:29)
[2019-04-21] MEDS: HEPARIN 5,000 UNIT/1 ML VIAL SC SCH ×2 (08:29→20:32)
[2019-04-21] MEDS: MULTIVITAMINS/MINERALS TAB PO SCH (08:29)
[2019-04-21] MEDS: COLLAGENASE 5 GM (UD JAR) TOP SCH (08:33)
[2019-04-21] MEDS: SOD CHLORIDE 0.45% 1,000 ML IV SCH (08:34)
[2019-04-21] MEDS: hydrALAzine 20 MG INJ IV PRN ×2 (14:34→20:16)
[2019-04-21 19:54] VITALS: BP 166/75; PULSE 87; RESP 18
[2019-04-22] MEDS: ACCU-CHEK XX SCH ×5 (02:00→22:00)
[2019-04-22] MEDS: PANTOPRAZOLE (EC) 40 MG TAB PO SCH (05:00)
[2019-04-22] MEDS: INSULIN ASPART [NOVOLOG] 3 ML PEN SC SCH ×4 (07:35→22:00)
[2019-04-22 07:50] VITALS: BP 205/97; PULSE 83; RESP 18
[2019-04-22] MEDS: GABAPENTIN 100 MG CAP PO SCH ×3 (08:41→20:03)
[2019-04-22] MEDS: LISINOPRIL 20 MG TAB PO SCH (08:41)
[2019-04-22] MEDS: ASCORBIC ACID 500 MG TAB PO SCH ×2 (08:41→20:03)
[2019-04-22] MEDS: ZINC SULFATE 220 MG CAP PO SCH (08:41)
[2019-04-22] MEDS: MULTIVITAMINS/MINERALS TAB PO SCH ×2 (08:41→08:51)
[2019-04-22] MEDS: METOPROLOL 25 MG TAB PO SCH ×2 (08:42→20:03)
[2019-04-22] MEDS: metFORMIN 500 MG TAB PO SCH ×2 (08:42→17:05)
[2019-04-22] MEDS: HEPARIN 5,000 UNIT/1 ML VIAL SC SCH ×3 (08:46→20:05)
[2019-04-22] MEDS: COLLAGENASE 5 GM (UD JAR) TOP SCH (08:47)
[2019-04-22 13:44] VITALS: BP 185/84; PULSE 82; RESP 18
[2019-04-22] MEDS: hydrALAzine 20 MG INJ IV PRN (13:49)
[2019-04-22 20:00] VITALS: BP 199/87; PULSE 81; RESP 18
[2019-04-22 21:55] VITALS: BP 180/84; PULSE 76
[2019-04-22] MEDS: AMLODIPINE 5 MG TAB PO SCH (21:59)
[2019-04-22 23:10] VITALS: BP 159/81; PULSE 77
[2019-04-23] VITALS (7 sets, daily range): BP systolic 153–208; BP diastolic 67–93; PULSE 66–83; RESP 15–18
[2019-04-23] MEDS: ACCU-CHEK XX SCH ×5 (02:00→22:00)
[2019-04-23] MEDS: hydrALAzine 20 MG INJ IV PRN ×2 (03:40→22:04)
[2019-04-23] MEDS: PANTOPRAZOLE (EC) 40 MG TAB PO SCH (06:00)
[2019-04-23] MEDS: metFORMIN 500 MG TAB PO SCH ×2 (07:35→17:35)
[2019-04-23] MEDS: INSULIN ASPART [NOVOLOG] 3 ML PEN SC SCH ×4 (07:35→22:00)
[2019-04-23] MEDS: ASCORBIC ACID 500 MG TAB PO SCH ×2 (09:00→20:32)
[2019-04-23] MEDS: HEPARIN 5,000 UNIT/1 ML VIAL SC SCH ×2 (09:00→20:34)
[2019-04-23] MEDS: METOPROLOL 25 MG TAB PO SCH ×2 (09:00→20:33)
[2019-04-23] MEDS: GABAPENTIN 100 MG CAP PO SCH ×3 (09:00→20:32)
[2019-04-23] MEDS: LISINOPRIL 20 MG TAB PO SCH (09:00)
[2019-04-23] MEDS: ZINC SULFATE 220 MG CAP PO SCH (09:00)
[2019-04-23] MEDS: COLLAGENASE 5 GM (UD JAR) TOP SCH (09:00)
[2019-04-23] MEDS: MULTIVITAMINS/MINERALS TAB PO SCH (09:00)
[2019-04-23] MEDS: AMLODIPINE 5 MG TAB PO SCH (20:32)
[2019-04-23] MEDS ORDERED: AMLODIPINE 5 MG TAB PO ONE (22:30)
[2019-04-23] MEDS ORDERED: hydrALAzine 20 MG INJ IV ONE (22:30)
[2019-04-23] MEDS ORDERED: hydrALAzine 20 MG INJ IV PRN (22:30)
[2019-04-24] MEDS: ACCU-CHEK XX SCH ×2 (02:00→07:05)
[2019-04-24] MEDS: PANTOPRAZOLE (EC) 40 MG TAB PO SCH (05:23)
[2019-04-24] MEDS: INSULIN ASPART [NOVOLOG] 3 ML PEN SC SCH (07:35)
[2019-04-24 07:55] VITALS: BP 155/67; PULSE 74; RESP 18
[2019-04-24] MEDS: HEPARIN 5,000 UNIT/1 ML VIAL SC SCH (09:00)
[2019-04-24] MEDS: ASCORBIC ACID 500 MG TAB PO SCH (09:55)
[2019-04-24] MEDS: COLLAGENASE 5 GM (UD JAR) TOP SCH (09:55)
[2019-04-24] MEDS: GABAPENTIN 100 MG CAP PO SCH (09:56)
[2019-04-24] MEDS: MULTIVITAMINS/MINERALS TAB PO SCH (09:56)
[2019-04-24] MEDS: ZINC SULFATE 220 MG CAP PO SCH (09:56)
[2019-04-24] MEDS: METOPROLOL 25 MG TAB PO SCH (09:56)
[2019-04-24] MEDS: metFORMIN 500 MG TAB PO SCH (09:56)
[2019-04-24] MEDS: LISINOPRIL 20 MG TAB PO SCH (09:57)
[2019-04-24] MEDS ORDERED: AMLODIPINE 10 MG TAB PO SCH (21:00)
== END 2019-04-24 11:15 | disposition left against medical advice (07) | DRG 638 ==
LOC: E/R 08:53 → 2NE 10:53 → MS3 04-17 23:25
PROVIDERS: ADMIT Hospitalist; ATTEND Internal Medicine
DX: E11.621 Type 2 diabetes mellitus with foot ulcer (principal); G82.20 Paraplegia, unspecified; E11.51 Type 2 diabetes mellitus with diabetic peripheral angiopathy without gangrene; I10 Essential (primary) hypertension; L97.529 Non-pressure chronic ulcer of other part of left foot with unspecified severity; L97.519 Non-pressure chronic ulcer of other part of right foot with unspecified severity; H54.7 Unspecified visual loss; E11.42 Type 2 diabetes mellitus with diabetic polyneuropathy; B35.1 Tinea unguium; D64.9 Anemia, unspecified; L89.159 Pressure ulcer of sacral region, unspecified stage; Z59.0 Homelessness; Z79.4 Long term (current) use of insulin; Z99.3 Dependence on wheelchair; Z87.891 Personal history of nicotine dependence
CPT/HCPCS: 36415; 71045; 73610; 73630; 80048; 80053; 80061; 80202; 81001; 82962; 83036; 83605; 83735; 84100; 84439; 84443; 84484; 85014; 85018; 85025; 85610; 85730; 87086; 93005; 93922; 96374; 96375; 97110; 97162; 97167; 97530; J0360; J1644; J1815; J2060; J2270; J2543; J3370

== ENCOUNTER 2019-04-28 16:56 | Emergency (ER) | payer OTHER ==
[~2019-04-28] VITALS: Ht 182.9 cm; Wt 80.0 kg
[~2019-04-28 16:56] MED LIST changes: -ASC500 PO; -BALS60OI TOP; -CEFT1FRO2 IV; -FAMO20TA18 PO; -GABA100C14 PO; -HYDR-3980 PO; -LISI40TA3 PO; -METO25TA4 PO; -MTF1000T PO; -MULTI PO; -SODI473S5 TP; -[UNRECOGNIZED DRUG - REMARK]
[2019-04-28 17:09] VITALS: Ht 182.9 cm; Wt 80.0 kg
[2019-04-28] MEDS ORDERED: HYDROCODONE/APAP (10/325) TAB PO ONE (17:30)
[2019-04-28 22:45] VITALS: BP 166/85; PULSE 90; RESP 18
== END 2019-04-28 23:41 | disposition home or self-care (01) ==
LOC: E/R 16:56
DX: L89.159 Pressure ulcer of sacral region, unspecified stage (principal); Z79.84 Long term (current) use of oral hypoglycemic drugs; Z87.891 Personal history of nicotine dependence
CPT/HCPCS: 72170; 73510; Z7502; Z7610; 73522